=== PATIENT | female | born 1980 | race Caucasian/White ===

== ENCOUNTER 2016-10-09 17:42 | Emergency (ER) | payer OTHER ==
[~2016-10-09] VITALS: Ht 157.5 cm; Wt 95.0 kg
[~2016-10-09 17:42] MED LIST: HYDR-5688 PO; RANI150T2 PO
[2016-10-09 17:44] VITALS: TEMP 36.5; Ht 157.5 cm; Wt 95.0 kg
[2016-10-09] MEDS ORDERED: ACET325T96 PO (18:12)
[2016-10-09] MEDS ORDERED: HYDROCODONE/ACETAMOPHEN 5/325MG TAB PO STA (18:41)
[2016-10-09] MEDS ORDERED: IBUPROFEN 600 MG TAB PO STA (18:41)
--- NOTE | 2016-10-09 19:25 | DIAGNOSTIC IMAGING REPORT ---
RIGHT KNEE 2 VIEWS HISTORY: right, eval pain Right COMPARISON: None. FINDINGS: There is no fracture or dislocation. Soft tissues are unremarkable. No radiopaque foreign bodies. No knee effusion. IMPRESSION: No fractures. Electronically signed by: Yossi Jasso M.D. 10/09/2016 7:24 PM Dictated Date/Time: 10/09/2016 7:23 PM
[2016-10-09] MEDS ORDERED: NORCO 5/325MG HOME PACK PO ONE (19:45)
--- NOTE | 2016-10-09 19:46 | EMERGENCY ROOM VISIT NOTE ---
ED Visit Note First contact with patient: 18:02 CHIEF COMPLAINT: Right knee pain times one week HISTORY OF PRESENT ILLNESS: Patient is a 35-year-old white female who presents to emergency department for evaluation of right knee pain. She states that it has been bothering her for about a week. She had a injury about a month ago when she slipped getting out of the shower. She was seen and evaluated here and had x-rays which were negative. She was placed in a knee immobilizer and given crutches and she states that that pain resolved on its own and she was feeling fine until last week. She states that she did get a new job and she does do a lot more walking. The right knee began hurting eat about a week ago. She describes pain and swelling both medially and posteriorly. She has pain with weightbearing. She has tried to ice, elevate and has taken Tylenol for her pain which she presently rates an 8/10. She cannot find her crutches or her knee immobilizer to use. She did not try to see or throat or her PCP in the last week for evaluation of her pain. REVIEW OF SYSTEMS: Review of systems as per HPI. All other systems reviewed were negative. At least 6 systems reviewed. PMH: Electronic medical records are reviewed and summarized as above/below. See Problem List. SOCIAL HISTORY: Patient lives at home with her significant other and children. PHYSICAL EXAM: Vital Signs: Reviewed Nurse's notes. MENTAL STATUS: Overweight 35 -year-old white female who is awake and alert and seated in a wheelchair in moderate distress due to her knee pain. KNEE: Examination of the right knee does not show any significant extra-articular soft tissue swelling or joint effusion. Skin is intact without erythema or cellulitic changes. She is tenderness around the peripatellar region along the medial joint line. Range of motion is markedly limited due to discomfort. She can extend fully, can only flex to roughly 90. There is no ligamentous instability appreciated although exam is difficult. The calf is soft and nontender. Distal pulses are easily palpable. EMERGENCY DEPARTMENT COURSE: Patient was medicated with ibuprofen 600 mg and Jackson 5 mg 2 tablets orally. X-rays of the right knee were obtained and were unremarkable. Possibilities include a cartilage or ligamentous injury, meniscal tear, chondromalacia, among others. The patient may have sustained an injury to the knee that was undetected back in August which may have been reaggravated recently, possibly related to her increased physical activity. She was unable to find her crutches and knee immobilizer and therefore was issued a new set here in the emergency department. She was directed to follow- up with orthopedics. The patient was much more comfortable by discharge and rated her pain a 3/10. RIGHT KNEE 2 VIEWS HISTORY: right, eval pain Right COMPARISON: None. FINDINGS: There is no fracture or dislocation. Soft tissues are unremarkable. No radiopaque foreign bodies. No knee effusion. IMPRESSION: No fractures. Problem List Medical Problems: (1) Altered mental status Status: Resolved (2) Ankle sprain Status: Resolved (3) Cellulitis Status: Resolved (4) Dizziness Status: Resolved (5) Encounter for wound re-check Status: Resolved (6) Endometriosis Status: Resolved (7) Headache Status: Resolved (8) Headache Status: Resolved (9) Hx of ectopic Status: Resolved (10) Infected insect bite of abdominal wall Status: Resolved (11) Intractable headache Status: Resolved (12) Lyme disease Status: Resolved (13) Nausea Status: Resolved (14) Pain, dental Status: Resolved (15) Paresthesia of left leg Status: Resolved (16) Right knee pain Status: Resolved (17) Sepsis Status: Resolved (18) Severe headache Status: Resolved (19) Tachycardia Status: Resolved (20) Unresponsive episode Status: Resolved (21) UTI (urinary tract infection) Status: Resolved (22) Vaginal bleeding in patient at less than 20 weeks gestation Status: Resolved (23) Vertigo Status: Resolved (24) Weakness Status: Resolved Surgical Problems: (1) Chiari malformation Status: Resolved Current/Historical Medications Scheduled Ranitidine HCl (Ranitidine HCl), 150 MG PO BID Scheduled PRN Acetaminophen Tab (Tylenol), 325 MG PO Q6H PRN for Pain Allergies Coded Allergies: Albuterol (Verified Allergy, Unknown, 10/09/16) Fish Allergy (Verified Allergy, Unknown, SEAFOOD ALLERGY, 10/09/16) Vital Signs Date Time Temp Pulse Resp B/P Pulse Ox O2 Delivery O2 Flow Rate FiO2 10/09/16 20:05 77 16 113/74 100 10/09/16 17:44 36.5 93 18 129/77 Room Air Medications Administered Medications (Trade) Dose Ordered Sig/Lelia Route Start Time Stop Time Status Last Admin Dose Admin Acetaminophen/ Hydrocodone Bitart (Jackson 5/325 Tab) 2 tab NOW STAT PO 10/09/16 18:41 10/09/16 18:42 DC 10/09/16 18:56 2 TAB Ibuprofen (Motrin Tab) 600 mg NOW STAT PO 10/09/16 18:41 10/09/16 18:42 DC 10/09/16 18:55 600 MG Acetaminophen/ Hydrocodone Bitart (Jackson 5/325mg Home Pack) 1 homepack UD ONCE PO 10/09/16 19:45 10/09/16 19:46 DC 10/09/16 20:04 1 HOMEPACK Departure Information Impression Primary Impression: Knee pain Referrals Guillermo Fink M.D. (PCP) Patient Instructions My [facility] Additional Instructions DO NOT drive, drink alcohol, operate machinery, or perform dangerous activities today. You were given medications in the ER that can affect your ability to safely function or operate a vehicle. Hydrocodone/Acetaminophen (Jackson) 5/325 mg: Take 1-2 pills every four hours for breakthrough pain. Avoid alcohol, operating machinery or dangerous equipment, working on ladders or roofs, DRIVING, or situations where being under the influence may be dangerous. It is recommended to use an [id number] stool softener such as Colace, 100mg twice daily while taking this medication to avoid constipation. Ibuprofen(Motrin, Advil) may be used for fever or pain. Use 600mg every six hours as needed. Take with food. Avoid using more than 2400mg in a 24 hour period. Do not use 2400mg per day for more than three consecutive days without physician direction. Prolonged inappropriate use can lead to stomach upset or ulcers. This medication can be taken if you need to drive, work, or perform activities which may be dangerous when taking narcotic pain medication. (AND/OR) Acetaminophen(Tylenol) may be used for fever or pain. Use 1000mg every six hours as needed. Avoid using more than 3000mg in a 24 hour period. This medication can be taken if you need to drive, work, or perform activities which may be dangerous when taking narcotic pain medication. Ice compresses for 20 minutes at a time four times daily for 2-3 days. Use the crutches and knee immobilizer as instructed. Rest and elevate your injury. Continue current medications. Return to the ER immediately for any numbness, tingling, severe pain, extreme swelling in the extremity or as needed. Follow up with orthopedics next week to arrange follow up for your injury. Problem Qualifiers Primary Impression: Knee pain Laterality: right Chronicity: acute Qualified Codes: M25.561 - Pain in right knee
[2016-10-09 20:05] VITALS: BP 113/74; PULSE 77; O2SAT 100
[2017-06-03] MEDS ORDERED: ANT25 PO (15:35)
[2017-06-03] MEDS ORDERED: ONDA4TAB10 SL (15:35)
== END 2016-10-09 20:06 | disposition home or self-care (01) ==
LOC: C.EDB 17:43 → C.EDD 20:06
DX: M25.561 Pain in right knee (principal)

== ENCOUNTER 2016-11-30 18:36 | Emergency (ER) | payer OTHER ==
[~2016-11-30] VITALS: Ht 157.5 cm; Wt 90.0 kg
[~2016-11-30 18:36] MED LIST changes: +ACET325T96 PO; -HYDR-5688 PO
[2016-11-30 19:01] VITALS: Ht 157.5 cm; Wt 90.0 kg
[2016-11-30] MEDS ORDERED: ACETAMINOPHEN 500 MG TAB PO STA (20:21)
[2016-11-30] MEDS ORDERED: SODIUM CHLORIDE 0.9% 1000ML 1,000 ML IV STA (20:21)
[2016-11-30] MEDS ORDERED: ONDANSETRON 8 MG/54 ML D5W IV STA (20:21)
[2016-11-30 20:26] LABS: COMPLETE YES; EOS % 0.6 %; HEMATOCRIT 39.1 % (37-47); LYMPH % 12.7 %; LYMPH ABS # 0.43 K/uL (1.2-3.4); MEAN CELL VOLUME 85.2 fL (80-100); MEAN CORPUSCULAR HEMOGLOBIN 28.3 pg (25-34); MEAN CORPUSCULAR HGB CONC 33.2 g/dl (32-36); MONO % 5.6 %; NEUT % 81.1 %; PLATELET COUNT 177 K/uL (130-400); RED BLOOD COUNT 4.59 M/uL (4.2-5.4); WHITE BLOOD COUNT 3.38 K/uL (4.8-10.8)
[2016-11-30 20:59] LABS: ALB/GLOB RATIO 1.1 (0.9-2); ALKALINE PHOSPHATASE 92 U/L (45-117); ALT/SGPT 16 U/L (12-78); AST/SGOT 10 U/L (15-37); BLOOD UREA NITROGEN 8 mg/dl (7-18); BUN/CREATININE RATIO 7.3 (10-20); CALCIUM 8.2 mg/dl (8.5-10.1); CARBON DIOXIDE 25 mmol/L (21-32); CHLORIDE 105 mmol/L (98-107); GLUCOSE 98 mg/dl (70-99); POTASSIUM 3.2 mmol/L (3.5-5.1); SODIUM 140 mmol/L (136-145)
[2016-11-30 21:00] LABS: THYROID STIMULATING HORMONE 0.903 uIu/ml (0.300-4.500)
[2016-11-30] MEDS: MoRPHine SULFATE 4 MG/ML 1 ML CARP\\VIAL IV PRN ×3 (21:22→23:06)
[2016-11-30 22:01] LABS: PREG INTERNAL NEGATIVE QC NEG CLEAR BACKGROUND; PREG INTERNAL POSITIVE QC POS CONTROL LINE
[2016-11-30 22:05] LABS: URINE APPEARANCE CLEAR (CLEAR); URINE BILIRUBIN NEG (NEG); URINE COLOR YELLOW; URINE NITRITE NEG (NEG); URINE PH 5.5 (4.5-7.5); URINE SPECIFIC GRAVITY 1.019 (1.000-1.030); UROBILINOGEN NEG (NEG)
[2016-11-30 22:11] LABS: MANUAL MICROSCOPIC REQUIRED? NO; REVIEW REQ? NO
--- NOTE | 2016-11-30 22:49 | DIAGNOSTIC IMAGING REPORT ---
CHEST ONE VIEW PORTABLE CLINICAL HISTORY: syncope COMPARISON STUDY: 07/24/2016 FINDINGS: The cardiac and mediastinal contours are normal. There is no evidence of focal pulmonary consolidation. There is no evidence of failure. No pleural effusions are visualized.[ There is a mild spinal curvature. IMPRESSION: No active disease in the chest. Electronically signed by: Andre Weeks M.D. 11/30/2016 10:48 PM Dictated Date/Time: 11/30/2016 10:47 PM
--- NOTE | 2016-11-30 22:50 | DIAGNOSTIC IMAGING REPORT ---
RIGHT WRIST W/NAVICULAR MIN 3 VIEWS CLINICAL HISTORY: Right wrist pain status post trauma COMPARISON: None. DISCUSSION: 5 views reveal no fractures or dislocations. IMPRESSION: No fractures or dislocations identified. Electronically signed by: Andre Weeks M.D. 11/30/2016 10:49 PM Dictated Date/Time: 11/30/2016 10:48 PM
--- NOTE | 2016-11-30 22:52 | DIAGNOSTIC IMAGING REPORT ---
L-SPINE MIN 4 VIEWS ROUTINE CLINICAL HISTORY: Low back pain status post trauma COMPARISON STUDY: No previous studies for comparison. FINDINGS: There are 5 lumbar type vertebral bodies present. No fractures or subluxations are visualized. There is an L4 limbus vertebra. There are mild multilevel degenerative changes. IMPRESSION: No acute fractures or subluxations identified. Electronically signed by: Andre Weeks M.D. 11/30/2016 10:50 PM Dictated Date/Time: 11/30/2016 10:49 PM
[2016-11-30 22:55] VITALS: BP 124/74; PULSE 112; TEMP 37.8; O2SAT 98
--- NOTE | 2016-11-30 22:58 | EMERGENCY ROOM VISIT NOTE ---
History Report prepared by Manasaibshane: Erika Orosco Under the Supervision of: Dr. Karan Benjamin D.O. First contact with patient: 20:16 Chief Complaint: FALL Stated Complaint: DIZZINESS, FALL W/POSS DC, RT ARM PAIN History of Present Illness The patient is a 36 year old female who presents to the Emergency Room with complaints of an episode of resolved syncope that occurred earlier today. She reports she fell while she was at work today. She states she has no idea what happened, she just remembers walking and then being on the ground. She admits to feeling dizzy intermittently for the entire day. The patient complains of pain in her right hand, arm and wrist that radiates up into her neck. She has undergone previous neck surgery for a history of Chiari malformation. The patient states she is unsure if she hit her head or lost consciousness. She denies any recent chest pain, shortness of breath, abdominal pain, nausea, vomiting, diarrhea or urinary symptoms. She has a fever here in the ED but states she was unaware she was febrile before this evening. Source of History: patient Onset: COTTON TIER Position: other (global) Timing: resolved Associated Symptoms: No SOB, No abdominal pain, No chest pain, No diarrhea, No nausea, No urinary symptoms, No vomiting Review of Systems See HPI for pertinent positives & negatives. A total of 10 systems reviewed and were otherwise negative. Past Medical & Surgical Medical Problems: (1) Altered mental status (2) Ankle sprain (3) Cellulitis (4) Dizziness (5) Encounter for wound re-check (6) Endometriosis (7) Headache (8) Headache (9) Hx of ectopic (10) Infected insect bite of abdominal wall (11) Intractable headache (12) Lyme disease (13) Nausea (14) Pain, dental (15) Paresthesia of left leg (16) Right knee pain (17) Sepsis (18) Severe headache (19) Tachycardia (20) Unresponsive episode (21) UTI (urinary tract infection) (22) Vaginal bleeding in patient at less than 20 weeks gestation (23) Vertigo (24) Weakness Surgical Problems: (1) Chiari malformation Family History FH: mental illness Heart disease Social History Smoking Status: Never Smoker Alcohol Use: none Drug Use: none Marital Status: , other Housing Status: lives with family Occupation Status: employed Current/Historical Medications Scheduled PRN Acetaminophen Tab (Tylenol), 325 MG PO Q6H PRN for Pain Allergies Coded Allergies: Albuterol (Verified Allergy, Unknown, 10/09/16) Fish Allergy (Verified Allergy, Unknown, SEAFOOD ALLERGY, 10/09/16) Physical Exam Vital Signs Date Time Temp Pulse Resp B/P Pulse Ox O2 Delivery O2 Flow Rate FiO2 11/30/16 22:55 37.8 112 20 124/74 98 11/30/16 20:51 109 118/72 98 Room Air 115 129/89 120 136/112 11/30/16 20:12 37.2 114 20 133/84 95 Room Air 11/30/16 19:01 38.2 120 18 122/81 97 Room Air Physical Exam CONSTITUTIONAL/VITAL SIGNS: Reviewed / noted above. GENERAL: Non-toxic in appearance. INTEGUMENTARY: Warm, dry, and [place]. HEAD: Normocephalic. EYES: without scleral icterus or trauma. ENT/OROPHARYNX: clear and moist. LYMPHADENOPATHY/NECK: Is supple without lymphadenopathy or meningismus. Post surgical scar in cervical region, no midline tenderness. RESPIRATORY: Lungs clear and equal. CARDIOVASCULAR: Regular rate and rhythm. GI/ABDOMEN: Soft and nontender. No organomegaly or pulsatile mass. No rebound or guarding. Normal bowel sounds. EXTREMITIES: Warm and well perfused. She has discomfort with axial loading of right thumb and snuff box tenderness. Discomfort over right clavicle. BACK: No CVA tenderness. There is some tenderness to palpation of lumbar region on the right, no midline tenderness. NEUROLOGICAL: Intact without focal deficits. PSYCHIATRIC: normal affect. MUSCULOSKELETAL: Normally developed with good muscle tone. Medical Decision & Procedures ER Provider Diagnostic Interpretation: These X-Rays were reviewed and interpreted by myself and the radiologist. L-SPINE MIN 4 VIEWS ROUTINE IMPRESSION: No acute fractures or subluxations identified. Electronically signed by: Andre Weeks M.D. 11/30/2016 10:50 PM RIGHT WRIST W/NAVICULAR MIN 3 VIEWS DISCUSSION: 5 views reveal no fractures or dislocations. IMPRESSION: No fractures or dislocations identified. Electronically signed by: Andre Weeks M.D. 11/30/2016 10:49 PM CHEST ONE VIEW PORTABLE IMPRESSION: No active disease in the chest. Electronically signed by: Andre Weeks M.D. 11/30/2016 10:48 PM Laboratory Results 11/30/16 20:10 Red Blood Count 4.59, Mean Corpuscular Volume 85.2, Mean Corpuscular Hemoglobin 28.3, Mean Corpuscular Hemoglobin Concent 33.2, Mean Platelet Volume 11.0, Neutrophils (%) (Auto) 81.1, Lymphocytes (%) (Auto) 12.7, Monocytes (%) (Auto) 5.6, Eosinophils (%) (Auto) 0.6, Basophils (%) (Auto) 0.0, Neutrophils # (Auto) 2.74, Lymphocytes # (Auto) 0.43, Monocytes # (Auto) 0.19, Eosinophils # (Auto) 0.02, Basophils # (Auto) 0.00 11/30/16 20:10 Test 11/30/16 20:10 11/30/16 20:28 11/30/16 20:50 11/30/16 21:45 White Blood Count 3.38 K/uL (4.8-10.8) Red Blood Count 4.59 M/uL (4.2-5.4) Hemoglobin 13.0 g/dL (12.0-16.0) Hematocrit 39.1 % (37-47) Mean Corpuscular Volume 85.2 fL (80-100) Mean Corpuscular Hemoglobin 28.3 pg (25-34) Mean Corpuscular Hemoglobin Concent 33.2 g/dl (32-36) Platelet Count 177 K/uL (130-400) Mean Platelet Volume 11.0 fL (7.4-10.4) Neutrophils (%) (Auto) 81.1 % Lymphocytes (%) (Auto) 12.7 % Monocytes (%) (Auto) 5.6 % Eosinophils (%) (Auto) 0.6 % Basophils (%) (Auto) 0.0 % Neutrophils # (Auto) 2.74 K/uL (1.4-6.5) Lymphocytes # (Auto) 0.43 K/uL (1.2-3.4) Monocytes # (Auto) 0.19 K/uL (0.11-0.59) Eosinophils # (Auto) 0.02 K/uL (0-0.5) Basophils # (Auto) 0.00 K/uL (0-0.2) RDW Standard Deviation 42.4 fL (36.4-46.3) RDW Coefficient of Variation 13.5 % (11.5-14.5) Immature Granulocyte % (Auto) 0.0 % Immature Granulocyte # (Auto) 0.00 K/uL (0.00-0.02) Anion Gap 10.0 mmol/L (3-11) Est Creatinine Clear Calc Drug Dose 74.5 ml/min Estimated GFR () 75.3 Estimated GFR (Non- 65.0 BUN/Creatinine Ratio 7.3 (10-20) Calcium Level 8.2 mg/dl (8.5-10.1) Total Bilirubin 0.6 mg/dl (0.2-1) Aspartate Amino Transf (AST/SGOT) 10 U/L (15-37) Alanine Aminotransferase (ALT/SGPT) 16 U/L (12-78) Alkaline Phosphatase 92 U/L (45-117) Total Creatine Kinase 65 U/L (26-192) Creatine Kinase MB < 0.5 ng/ml (0.5-3.6) Creatine Kinase MB Ratio (0-3.0) Troponin I < 0.015 ng/ml (0-0.045) Total Protein 7.2 gm/dl (6.4-8.2) Albumin 3.7 gm/dl (3.4-5.0) Globulin 3.5 gm/dl (2.5-4.0) Albumin/Globulin Ratio 1.1 (0.9-2) Lipase 120 U/L (73-393) Thyroid Stimulating Hormone (TSH) 0.903 uIu/ml (0.300-4.500) Bedside Troponin I 0.000 ng/ml (0-0.045) Influenza Type A Antigen Neg for Influ A (NEG) Influenza Type B Antigen Neg for Influ B (NEG) Urine Color YELLOW Urine Appearance CLEAR (CLEAR) Urine pH 5.5 (4.5-7.5) Urine Specific Muir 1.019 (1.000-1.030) Urine Protein NEG (NEG) Urine Glucose (UA) NEG (NEG) Urine Ketones NEG (NEG) Urine Occult Blood NEG (NEG) Urine Nitrite NEG (NEG) Urine Bilirubin NEG (NEG) Urine Urobilinogen NEG (NEG) Urine Leukocyte Esterase NEG (NEG) Urine Test NEG (NEG) Laboratory results as stated above per my review. Medications Administered Medications (Trade) Dose Ordered Sig/Lelia Route Start Time Stop Time Status Last Admin Dose Admin Sodium Chloride (Nss 1000ml) 1,000 ml @ 999 mls/hr Q1H1M STAT IV 11/30/16 20:21 11/30/16 21:21 DC 11/30/16 21:17 999 MLS/HR Acetaminophen (Tylenol Tab) 1,000 mg NOW STAT PO 11/30/16 20:21 11/30/16 20:26 DC 11/30/16 21:18 1,000 MG Morphine Sulfate (MoRPHine SULFATE INJ) 4 mg Q1H PRN IV 11/30/16 20:30 4 20:29 11/30/16 22:12 4 MG Ondansetron HCl (Zofran 8mg Iv) 8 mg NOW STAT IV 11/30/16 20:21 11/30/16 20:26 DC 11/30/16 21:17 8 MG ECG Indication: syncope Rate (beats per minute): 102 Rhythm: sinus tachycardia Findings: no acute ischemic change, no ectopy ED Course 2017: Previous medical records were reviewed. The patient was evaluated in room C2. A complete history and physical examination was performed. 2020: Zofran 8 mg IV, Acetaminophen 1000 mg PO, NSS 1000 ml @ 999 mls/hr IV. 2030: Morphine Sulfate 4 mg IV. 2300: I reevaluated the patient. She is feeling better. I discussed her results and discharge instructions and she verbalized complete understanding and agreement. Medical Decision Differential includes acute cardiac dysrhythmia, microinfarction, CVA, TIA, dehydration, anemia, electrolyte disturbance, seizure, trauma, intracranial bleeding, acute vascular catastrophe, thoracic aortic dissection, PE, abdominal aortic aneurysm rupture, ectopic rupture, acute cardiac dysrhythmia, dehydration, seizure. This is a 36-year-old female who presents to the ED with a chief complaint of a fall/syncope. The patient states that she has been feeling dizzy all day. She feels of the ground while at work. She complains of some low back pain as well as right shoulder pain and right wrist pain. She denies nausea vomiting or other symptoms. She denies having a fever although her temperature here was initially 38.2. This resolved while she is here. She was tachycardic with a heart rate of 120. Orthostatic vital signs revealed an increase in her heart rate by 11 beats per minute. An EKG shows sinus tachycardia rate of 107. CBC was normal. Complete metabolic panel was unremarkable with exception of a potassium of 3.2. Troponin is negative. TSH is normal. Urine did not show infection. test was negative. Flu swab was negative. Chest x-ray did not show acute disease. X-rays of the lumbar spine and the right wrist with navicular were negative for fracture. The patient was treated with IV fluids, by mouth Tylenol, IV morphine and IV Zofran. Her symptoms may be related to a viral syndrome. She may have been slightly dehydrated as well. She is felt to be stable for discharge and outpatient follow-up. Impression Primary Impression: Fall Additional Impressions: Dizziness Contusion of multiple sites Scribe Attestation The scribe's documentation has been prepared under my direction and personally reviewed by me in its entirety. I confirm that the note above accurately reflects all work, treatment, procedures, and medical decision making performed by me. Departure Information Dispostion Home / Self-Care Referrals Guillermo Fink M.D. (PCP) Patient Instructions My [facility] Additional Instructions Follow-up with your doctor for further care and evaluation in 1-2 days. Return to the emergency department for worsening or new symptoms or any concerns. You have been examined and treated today on an emergency basis only. This is not a substitute for, or an effort to provide, complete comprehensive medical care. It is impossible to recognize and treat all injuries or illnesses in a single emergency department visit. It is therefore important that you follow up closely with your doctor. Call as soon as possible for an appointment. Drink plenty of fluids. Take Tylenol or Motrin as needed for fever or discomfort. Problem Qualifiers
[2017-06-03] MEDS ORDERED: ONDA4TAB10 SL (15:35)
[2017-06-03] MEDS ORDERED: ANT25 PO (15:35)
== END 2016-11-30 23:22 | disposition home or self-care (01) ==
LOC: C.EDB 18:39 → C.EDC 23:22
DX: R42 Dizziness and giddiness (principal); T14.8 Other injury of unspecified body region; W19.XXXA Unspecified fall, initial encounter; Y92.89 Other specified places as the place of occurrence of the external cause; Y99.0 Civilian activity done for income or pay; R00.0 Tachycardia, unspecified; N80.9 Endometriosis, unspecified; Z87.898 Personal history of other specified conditions; Z87.440 Personal history of urinary (tract) infections; Z86.19 Personal history of other infectious and parasitic diseases; Z87.828 Personal history of other (healed) physical injury and trauma; Z88.8 Allergy status to other drugs, medicaments and biological substances; Z91.018 Allergy to other foods; Z82.49 Family history of ischemic heart disease and other diseases of the circulatory system; Z81.8 Family history of other mental and behavioral disorders

== ENCOUNTER 2016-12-14 21:45 | Emergency (ER) | payer OTHER ==
[~2016-12-14] VITALS: Ht 157.5 cm; Wt 91.0 kg
[~2016-12-14 21:45] MED LIST changes: -RANI150T2 PO
[2016-12-14 22:02] VITALS: Ht 157.5 cm; Wt 91.0 kg
[2016-12-14 22:36] VITALS: TEMP 36.7; O2SAT 96
[2016-12-14] MEDS ORDERED: SODIUM CHLORIDE 0.9% 1000ML 1,000 ML IV ONE (22:45)
[2016-12-14 22:52] LABS: BASO % 0.2 %; BASO ABS # 0.02 K/uL (0-0.2); COMPLETE YES; EOS % 1.1 %; HEMATOCRIT 37.4 % (37-47); IG% 0.2 %; LYMPH % 19.8 %; LYMPH ABS # 1.61 K/uL (1.2-3.4); MEAN CORPUSCULAR HGB CONC 32.9 g/dl (32-36); MEAN PLATELET VOLUME 10.9 fL (7.4-10.4); MONO % 5.2 %; NEUT % 73.5 %; PLATELET COUNT 235 K/uL (130-400); WHITE BLOOD COUNT 8.12 K/uL (4.8-10.8)
--- NOTE | 2016-12-14 23:01 | DIAGNOSTIC IMAGING REPORT ---
CHEST ONE VIEW PORTABLE CLINICAL HISTORY: Syncope. COMPARISON STUDY: Chest radiograph November 30, 2016. FINDINGS: This exam is compromised by motion artifact. Lung volumes are mildly diminished. There is no pneumothorax or pleural effusion. There is no lobar consolidation or evidence of pulmonary edema. IMPRESSION: No acute findings. No significant change in appearance of the chest. Electronically signed by: Michelet Cifuentes M.D. 12/14/2016 11:00 PM Dictated Date/Time: 12/14/2016 10:58 PM
[2016-12-14 23:09] LABS: ALT/SGPT 20 U/L (12-78); BLOOD UREA NITROGEN 14 mg/dl (7-18); BUN/CREATININE RATIO 11.4 (10-20); CALCIUM 8.5 mg/dl (8.5-10.1); CARBON DIOXIDE 26 mmol/L (21-32); CHLORIDE 108 mmol/L (98-107); GLUCOSE 96 mg/dl (70-99); MAGNESIUM 2.2 mg/dl (1.8-2.4); POTASSIUM 3.6 mmol/L (3.5-5.1); SODIUM 142 mmol/L (136-145)
[2016-12-14 23:20] LABS: ALB/GLOB RATIO 1.2 (0.9-2); ALKALINE PHOSPHATASE 89 U/L (45-117); AST/SGOT 8 U/L (15-37)
--- NOTE | 2016-12-14 23:25 | DIAGNOSTIC IMAGING REPORT ---
CT OF THE HEAD WITHOUT CONTRAST CLINICAL HISTORY: Syncope. Head injury. COMPARISON STUDY: MRI of the brain February 10, [address] August 13, 2016. CT DOSE: 537.48 mGy.cm TECHNIQUE: Helical axial images of the head were obtained without IV contrast. Automated exposure control was utilized for the study. FINDINGS: No acute intracranial hemorrhage, midline shift or mass effect is present. Ventricular system is normal. Fullness at the level the foramen magnum is unchanged. There are stable postsurgical findings following suboccipital craniectomy. No extra axial collection is present. Conley-white differentiation is maintained. The appearance of the brain is unchanged. There is no calvarial fracture. IMPRESSION: 1. No acute intracranial findings. 2. Stable post surgical findings following suboccipital craniectomy. 3. No calvarial fracture. Electronically signed by: Michelet Cifuentes M.D. 12/14/2016 11:24 PM Dictated Date/Time: 12/14/2016 11:21 PM
[2016-12-15 00:12] VITALS: BP 134/86; PULSE 96; O2SAT 96
--- NOTE | 2016-12-15 04:50 | EMERGENCY ROOM VISIT NOTE ---
History First contact with patient: 22:13 Chief Complaint: SYNCOPE Stated Complaint: SYNCOPE Nursing Triage Summary: pt states, "I fell in the bathroom." RN asked patient if she tripped or felt dizzy. patient states, "I don't know." pt c/o dizziness and headache. History of Present Illness The patient is a 36 year old female who presents to the Emergency Room with complaints of fall versus syncopal episode that occurred at home one to 2 hours ago. The patient states that she went into her bathroom, and the next thing she remembers is she woke up on the floor. The patient has had some dizziness recently, and now has a headache that was not previously present. The patient does not have neck pain, chest pain, chest tightness, shortness of breath, or palpitations. No extremity injury. The patient does not report recent illness or significant changes in medication. She believes that she has been eating and drinking well. She rates her current discomfort a 5/10. Review of Systems More than 10 systems were reviewed and otherwise negative with the exception of history of present illness. Past Medical/Surgical History Medical Problems: (1) Altered mental status (2) Ankle sprain (3) Cellulitis (4) Dizziness (5) Encounter for wound re-check (6) Endometriosis (7) Headache (8) Headache (9) Hx of ectopic (10) Infected insect bite of abdominal wall (11) Intractable headache (12) Lyme disease (13) Nausea (14) Pain, dental (15) Paresthesia of left leg (16) Right knee pain (17) Sepsis (18) Severe headache (19) Tachycardia (20) Unresponsive episode (21) UTI (urinary tract infection) (22) Vaginal bleeding in patient at less than 20 weeks gestation (23) Vertigo (24) Weakness Surgical Problems: (1) Chiari malformation Family History FH: mental illness Heart disease Social History Smoking Status: Never Smoker Alcohol Use: none Drug Use: none Marital Status: , other Housing Status: lives with family Occupation Status: employed Current/Historical Medications No Active Prescriptions or Reported Meds Allergies Coded Allergies: Albuterol (Verified Allergy, Unknown, 12/14/16) Fish Allergy (Verified Allergy, Unknown, SEAFOOD ALLERGY, 12/14/16) Physical Exam Vital Signs Date Time Temp Pulse Resp B/P Pulse Ox O2 Delivery O2 Flow Rate FiO2 12/15/16 00:12 96 18 134/86 96 12/14/16 22:36 36.7 92 16 109/72 96 Room Air 12/14/16 22:36 96 Room Air 12/14/16 22:30 92 16 12/14/16 22:28 96 12/14/16 22:28 105 14 109/72 96 Room Air 12/14/16 22:26 99 Room Air 12/14/16 22:25 98 10 12/14/16 22:19 109/72 96 Room Air 12/14/16 22:02 36.7 95 20 118/74 97 Room Air Pain Rating (0-10): 0 Physical Exam VITALS: Vitals are noted on the nurse's note and reviewed by myself. Vital signs stable. GENERAL: Well-developed, well-nourished, white female, who is in no acute distress and resting comfortably. Patient is cooperative with the examination. HEAD: Normocephalic atraumatic. EARS: External ear normal. External auditory canals clear, tympanic membranes pearly conley without erythema or effusion bilaterally. EYES: Pupils equal round and reactive to light and accommodation. Conjunctivae without injection, sclerae without icterus. Extraocular movements intact. NOSE: Patent, turbinates without inflammation or discharge. MOUTH: Mucous membranes moist. Tonsils are not enlarged. Pharynx without erythema, blood, or exudate. Uvula midline. Airway patent. NECK: Supple without nuchal rigidity. No lymphadenopathy. No thyromegaly. Cervical spine is nontender. HEART: Regular rate and rhythm without murmurs gallops or rubs. LUNGS: Clear to auscultation bilaterally without wheezes, rales or rhonchi. No retractions or accessory muscle use. ABDOMEN: Positive normal bowel sounds x 4. Soft, nontender, without masses or organomegaly. No guarding or rebound tenderness. MUSCULOSKELETAL: No muscle atrophy, erythema, or edema noted. Full range of motion without joint tenderness in all extremities. No tenderness to palpation. Normal gait. Strength 5/5 throughout. NEURO: Patient was alert and oriented to person place and time. CN II through XII grossly intact. Deep tendon reflexes 2+ throughout. No focal neurological deficits SKIN: The skin was without rashes, erythema, edema, or bruising. Capillary reflex less than 2 seconds. Medical Decision & Procedures ER Provider Diagnostic Interpretation: CT OF THE HEAD WITHOUT CONTRAST CLINICAL HISTORY: Syncope. Head injury. COMPARISON STUDY: MRI of the brain February 10, [address] August 13, 2016. CT DOSE: 537.48 mGy.cm TECHNIQUE: Helical axial images of the head were obtained without IV contrast. Automated exposure control was utilized for the study. FINDINGS: No acute intracranial hemorrhage, midline shift or mass effect is present. Ventricular system is normal. Fullness at the level the foramen magnum is unchanged. There are stable postsurgical findings following suboccipital craniectomy. No extra axial collection is present. Conley-white differentiation is maintained. The appearance of the brain is unchanged. There is no calvarial fracture. IMPRESSION: 1. No acute intracranial findings. 2. Stable post surgical findings following suboccipital craniectomy. 3. No calvarial fracture. CHEST ONE VIEW PORTABLE CLINICAL HISTORY: Syncope. COMPARISON STUDY: Chest radiograph November 30, 2016. FINDINGS: This exam is compromised by motion artifact. Lung volumes are mildly diminished. There is no pneumothorax or pleural effusion. There is no lobar consolidation or evidence of pulmonary edema. IMPRESSION: No acute findings. No significant change in appearance of the chest. Laboratory Results 12/14/16 22:35 Red Blood Count 4.40, Mean Corpuscular Volume 85.0, Mean Corpuscular Hemoglobin 28.0, Mean Corpuscular Hemoglobin Concent 32.9, Mean Platelet Volume 10.9, Neutrophils (%) (Auto) 73.5, Lymphocytes (%) (Auto) 19.8, Monocytes (%) (Auto) 5.2, Eosinophils (%) (Auto) 1.1, Basophils (%) (Auto) 0.2, Neutrophils # (Auto) 5.96, Lymphocytes # (Auto) 1.61, Monocytes # (Auto) 0.42, Eosinophils # (Auto) 0.09, Basophils # (Auto) 0.02 12/14/16 22:35 Test 12/14/16 22:35 White Blood Count 8.12 K/uL (4.8-10.8) Red Blood Count 4.40 M/uL (4.2-5.4) Hemoglobin 12.3 g/dL (12.0-16.0) Hematocrit 37.4 % (37-47) Mean Corpuscular Volume 85.0 fL (80-100) Mean Corpuscular Hemoglobin 28.0 pg (25-34) Mean Corpuscular Hemoglobin Concent 32.9 g/dl (32-36) Platelet Count 235 K/uL (130-400) Mean Platelet Volume 10.9 fL (7.4-10.4) Neutrophils (%) (Auto) 73.5 % Lymphocytes (%) (Auto) 19.8 % Monocytes (%) (Auto) 5.2 % Eosinophils (%) (Auto) 1.1 % Basophils (%) (Auto) 0.2 % Neutrophils # (Auto) 5.96 K/uL (1.4-6.5) Lymphocytes # (Auto) 1.61 K/uL (1.2-3.4) Monocytes # (Auto) 0.42 K/uL (0.11-0.59) Eosinophils # (Auto) 0.09 K/uL (0-0.5) Basophils # (Auto) 0.02 K/uL (0-0.2) RDW Standard Deviation 41.3 fL (36.4-46.3) RDW Coefficient of Variation 13.4 % (11.5-14.5) Immature Granulocyte % (Auto) 0.2 % Immature Granulocyte # (Auto) 0.02 K/uL (0.00-0.02) Anion Gap 8.0 mmol/L (3-11) Est Creatinine Clear Calc Drug Dose 68.7 ml/min Estimated GFR () 67.8 Estimated GFR (Non- 58.5 BUN/Creatinine Ratio 11.4 (10-20) Calcium Level 8.5 mg/dl (8.5-10.1) Magnesium Level 2.2 mg/dl (1.8-2.4) Total Bilirubin 0.5 mg/dl (0.2-1) Aspartate Amino Transf (AST/SGOT) 8 U/L (15-37) Alanine Aminotransferase (ALT/SGPT) 20 U/L (12-78) Alkaline Phosphatase 89 U/L (45-117) Troponin I < 0.015 ng/ml (0-0.045) Total Protein 6.8 gm/dl (6.4-8.2) Albumin 3.7 gm/dl (3.4-5.0) Globulin 3.1 gm/dl (2.5-4.0) Albumin/Globulin Ratio 1.2 (0.9-2) Thyroid Stimulating Hormone (TSH) 2.070 uIu/ml (0.300-4.500) Medications Administered Medications (Trade) Dose Ordered Sig/Lelia Route Start Time Stop Time Status Last Admin Dose Admin Sodium Chloride (Nss 1000ml) 1,000 ml @ 999 mls/hr Q1H1M ONCE IV 12/14/16 22:45 12/14/16 23:45 DC 12/14/16 22:40 999 MLS/HR ED Course Physical exam and history were performed. Nursing notes and EMR were reviewed. Patient appears to have had a fall versus syncopal episode today. EKG was performed and was normal sinus rhythm without acute ST elevation. IV access was established and labs were obtained. CT scan of the head was performed as well as chest x-ray of the chest. The patient was placed on a monitor tech. She was hydrated with normal saline. The patient blood work is as above and was reviewed. She does not have a significantly elevated white blood cell count, gross anemia, bandemia, or significant electrolyte imbalance. Troponin 1 is negative. Chest x-ray does not show acute process. CT scan is without acute intracranial bleed. The patient did not have significant findings on the monitor tech. Overall the patient appears stable for discharge home. She was able to ambulate here in the department without difficulty. She is without neurologic deficit. She does not appear to be experiencing an acute cardiopulmonary event. The patient symptoms certainly could have been a vagal episode that occurred in the bathroom. They could also be from a mechanical fall. She will need to have close follow-up by her primary care physician, and she contact them for a short interval follow-up. The patient is to use [id number] ibuprofen and Tylenol for pain control. She was otherwise invited back to the ER with any new, worsening, or concerning symptoms. The chart was completed utilizing [employer] Voice [employer]ognition Software. Grammatical errors, random word insertions, pronoun errors, and incomplete sentences are an occasional consequence of this system due to software limitations, ambient noise, and hardware issues. Any formal questions or concerns about the content, text, or information contained within the body of this dictation should be directly addressed to the provider for clarification. . Medical Decision Differential diagnosis: Etiologies such as vasovagal event, infection, hypoglycemia, electrolyte abnormalities, cardiac sources, intracerebral event, toxicologic, neurologic, as well as others were entertained. Impression Primary Impression: Syncope Departure Information Dispostion Home / Self-Care Condition GOOD Prescriptions No Active Prescriptions or Reported Meds Forms HOME CARE DOCUMENTATION FORM, Work Instructions, Additional Instructions: Patient seen and evaluated in the emergency department today for medica care. Return to work on 12/17/2016. IMPORTANT VISIT INFORMATION Patient Instructions My [facility] Additional Instructions You were seen and evaluated today on an emergency basis only. This is not a substitute for, or an effort to provide, complete comprehensive medical care. It is not possible to recognize and treat all injuries or illnesses in a single emergency department visit. For this reason it is recommended that you followup with your primary care physician in the next 1-2 days for recheck of your condition. Drink plenty of fluids and remain well hydrated. You are welcome to return to the emergency department anytime with new, worsening, or concerning symptoms. Work Instructions Additional Work Instructions: Patient seen and evaluated in the emergency department today for medical care. Return to work on 12/17/2016.
[2017-06-03] MEDS ORDERED: ONDA4TAB10 SL (15:35)
[2017-06-03] MEDS ORDERED: ANT25 PO (15:35)
== END 2016-12-15 00:13 | disposition home or self-care (01) ==
LOC: C.EDB 21:47 → C.EDA 12-15 00:13
DX: R55 Syncope and collapse (principal); Z82.49 Family history of ischemic heart disease and other diseases of the circulatory system

== ENCOUNTER → 2016-12-30 | Outpatient (CLI) | payer OTHER ==
[~2016-12-30] MED LIST changes: -ACET325T96 PO; +ANT25 PO; +GADAVIST IV PRN; +ONDA4TAB10 SL; +PLEXUS BIOCLEANSE PO; +PLEXUS PROBIO PO; +TRAM-10 PO; +ZNTT/150 PO
--- NOTE | 2016-12-30 16:41 | DIAGNOSTIC IMAGING REPORT ---
MRI OF THE BRAIN WITHOUT AND WITH IV CONTRAST CLINICAL HISTORY: SYNCOPE COMPARISON STUDY: No previous studies for comparison. TECHNIQUE: Utilizing a 1.5 Chiquita magnet and dedicated coil, multiplanar, multiecho imaging of the brain was performed pre and postcontrast administration. IV administration of 8 mL of Gadavist contrast was uneventful. FINDINGS: Low-lying cerebellar tonsils. Suboccipital decompression craniotomy. Diffusion-weighted images show no acute ischemic event. No evidence for abnormal postcontrast enhancement. Trace dural enhancement which has been present previously. Sella and parasellar regions are unremarkable. IMPRESSION: 1. The existing postoperative changes consistent with a suboccipital craniotomy and low-lying cerebellar tonsils.. 2. No acute intracranial abnormality. 3. No change from prior study of 12/11/2015 Electronically signed by: Donny Francois M.D. 12/30/2016 4:39 PM Dictated Date/Time: 12/30/2016 4:36 PM
== END | disposition home or self-care (01) ==
LOC: C.MRI 15:45
PROVIDERS: ATTEND Physician Assistant Medical
DX: R55 Syncope and collapse (principal)

== ENCOUNTER 2017-05-31 09:17 | Inpatient (IN) | payer OTHER ==
[~2017-05-31] VITALS: Ht 157.5 cm; Wt 105.6 kg
[2017-05-31] MEDS ORDERED: SODIUM CHLORIDE 0.9% 1000ML 1,000 ML IV STA ×2 (09:27→10:30)
[2017-05-31] MEDS ORDERED: ONDANSETRON INJ 2 MG/ML 2 ML VIAL IV STA (09:30)
[2017-05-31] MEDS ORDERED: MoRPHine SULFATE 4 MG/ML 1 ML CARP\\VIAL IV STA (09:30)
--- NOTE | 2017-05-31 09:35 | EMERGENCY ROOM VISIT NOTE ---
History Report prepared by James: Jazmín Aly Under the Supervision of: Dr. Alex Hernández M.D. First contact with patient: 09:22 Chief Complaint: FALL Stated Complaint: SNYCOPE,FALL,KNEE PAIN History of Present Illness The patient is a 36 year old female who presents to the Emergency Room with complaints of a sudden fall that occurred this morning one hour prior to arrival. She currently rates her discomfort as a 7/10 in severity. Per the patient's fiancee, the patient recently has been following with Neurology for headaches. He states that nothing was found, but the patient was started on medication. The patient's fiancee states that when he arrived home this morning from work, the patient appeared normal. He states that he fell asleep and then woke to the patient texting him that she needed help due to a fall after a loss of consciousness. The patient's fiancee states that he found the patient on the floor in the bathroom after a fall, and the patient was complaining of a head injury and left knee injury. He states that since the fall, the patient has been become more lethargic. The patient states that she currently is experiencing a headache and left knee pain. She states that this morning she was feeling lightheaded. The patient denies any neck pain. She denies any recent illness. Source of History: patient, spouse/significant other () Onset: this morning, one hour prior to arrival Position: other (global) Symptom Intensity: 7/10 Quality: other (fall) Timing: other (sudden) Associated Symptoms: + LOC, + headache Note: Associated Symptoms: left knee pain, lightheadedness Review of Systems See HPI for pertinent positives & negatives. A total of 10 systems reviewed and were otherwise negative. Past Medical & Surgical Medical Problems: (1) Altered mental status (2) Ankle sprain (3) Cellulitis (4) Dizziness (5) Encounter for wound re-check (6) Endometriosis (7) Headache (8) Headache (9) Hx of ectopic (10) Infected insect bite of abdominal wall (11) Intractable headache (12) Lyme disease (13) Nausea (14) Pain, dental (15) Paresthesia of left leg (16) Right knee pain (17) Sepsis (18) Severe headache (19) Tachycardia (20) Unresponsive episode (21) UTI (urinary tract infection) (22) Vaginal bleeding in patient at less than 20 weeks gestation (23) Vertigo (24) Weakness Surgical Problems: (1) Chiari malformation Family History FH: mental illness Heart disease Social History Smoking Status: Never Smoker Alcohol Use: none Drug Use: none Marital Status: , other Housing Status: lives with family Occupation Status: employed Current/Historical Medications Scheduled Ranitidine (Zantac), 150 MG PO BID Scheduled PRN Tramadol (Ultram), 50 MG PO Q4H PRN for Pain Allergies Coded Allergies: Albuterol (Verified Allergy, Unknown, 05/31/17) Fish Allergy (Verified Allergy, Unknown, SEAFOOD ALLERGY, 05/31/17) Physical Exam Vital Signs Date Time Temp Pulse Resp B/P (MAP) Pulse Ox O2 Delivery O2 Flow Rate FiO2 05/31/17 12:45 36.9 84 16 119/76 96 Room Air 05/31/17 12:31 100 16 136/89 98 Room Air 05/31/17 12:01 100 16 131/84 98 Room Air 05/31/17 11:41 96 16 96 05/31/17 11:36 102 20 139/81 100 Room Air 05/31/17 11:06 111 18 100 05/31/17 11:01 100 17 127/78 100 Room Air 05/31/17 10:25 117 16 134/74 100 Room Air 120 143/81 93 137/79 05/31/17 10:13 96 20 129/79 100 Room Air 05/31/17 09:47 111 17 97 Room Air 05/31/17 09:31 122/57 05/31/17 09:29 111 05/31/17 09:29 95 Room Air 05/31/17 09:28 117/68 05/31/17 09:18 36.9 122 20 137/84 94 Room Air Physical Exam GENERAL: Patient is in no acute distress. HEENT: No acute trauma, normocephalic atraumatic, mucous membranes moist, no nasal congestion, no scleral icterus. NECK: No stridor, no adenopathy, no meningismus, trachea is midline. Nontender c -spine LUNGS: Clear to auscultation bilaterally, no wheeze, no rhonchi, breath sounds equal. HEART: Tachycardic with a regular rhythm, no murmurs ABDOMEN: Soft, nontender, bowel sounds positive, no hernias, no peritonitis. EXTREMITIES: Pain to move the right knee. No contusion or deformity. Other 3 extremities show no pain to palpation or movement. NEUROLOGIC: Somnolent, answers questions appropriately, no focal deficits, no speech slur SKIN: No rash, no jaundice, no diaphoresis. Medical Decision & Procedures ER Provider Diagnostic Interpretation: Orthostatic vital signs were negative. Radiology results as stated below per my review and radiologist interpretation: RIGHT KNEE 3 VIEWS CLINICAL HISTORY: Right knee pain following fall. COMPARISON: Right knee radiographs October 09, 2016. FINDINGS: Alignment of the right knee is anatomic. No acute fracture or joint effusion is identified. Joint spaces are preserved. IMPRESSION: No acute fracture or joint effusion of the right knee. Electronically signed by: Michelet Cifuentes M.D. 05/31/2017 9:54 AM Dictated Date/Time: 05/31/2017 9:[address] HEAD WITHOUT CONTRAST (CT) CLINICAL HISTORY: Change in mental status. Fall in shower. Possible syncope. COMPARISON STUDY: 12/14/2016 TECHNIQUE: Axial CT of the brain is performed from the vertex to the skull base. IV contrast was not administered for this examination. A dose lowering technique was utilized adhering to the principles of ALARA. CT DOSE: 537.48 mGy.cm FINDINGS: There are postsurgical changes of suboccipital craniotomy. No intra or extra-axial mass lesions are visualized. There is no CT evidence of acute cortical infarction. There is no midline shift. There is no acute hemorrhage. There is no evidence of pathologic ventricular dilatation. There is no evidence of acute sinusitis IMPRESSION: 1. Postsurgical changes of a prior suboccipital craniotomy 2. No acute intracranial findings. Electronically signed by: Andre Weeks M.D. 05/31/2017 10:10 AM Dictated Date/Time: 05/31/2017 10:08 AM CHEST ONE VIEW PORTABLE CLINICAL HISTORY: Syncope. Trauma. Altered mental status. COMPARISON STUDY: 12/14/2016 FINDINGS: The cardiac and mediastinal contours are normal. There is no evidence of focal pulmonary consolidation. There is no evidence of failure. No pleural effusions are visualized.[ IMPRESSION: No active disease in the chest. Electronically signed by: Andre Weeks M.D. 05/31/2017 9:54 AM Dictated Date/Time: 05/31/2017 9:53 AM Laboratory Results 05/31/17 09:30 Red Blood Count 4.58, Mean Corpuscular Volume 84.9, Mean Corpuscular Hemoglobin 28.8, Mean Corpuscular Hemoglobin Concent 33.9, Mean Platelet Volume 10.7, Neutrophils (%) (Auto) 74.6, Lymphocytes (%) (Auto) 18.5, Monocytes (%) (Auto) 4.7, Eosinophils (%) (Auto) 1.8, Basophils (%) (Auto) 0.1, Neutrophils # (Auto) 5.02, Lymphocytes # (Auto) 1.25, Monocytes # (Auto) 0.32, Eosinophils # (Auto) 0.12, Basophils # (Auto) 0.01 05/31/17 09:30 Test 05/31/17 09:30 05/31/17 09:52 05/31/17 10:30 05/31/17 11:33 White Blood Count 6.74 K/uL (4.8-10.8) Red Blood Count 4.58 M/uL (4.2-5.4) Hemoglobin 13.2 g/dL (12.0-16.0) Hematocrit 38.9 % (37-47) Mean Corpuscular Volume 84.9 fL (80-100) Mean Corpuscular Hemoglobin 28.8 pg (25-34) Mean Corpuscular Hemoglobin Concent 33.9 g/dl (32-36) Platelet Count 198 K/uL (130-400) Mean Platelet Volume 10.7 fL (7.4-10.4) Neutrophils (%) (Auto) 74.6 % Lymphocytes (%) (Auto) 18.5 % Monocytes (%) (Auto) 4.7 % Eosinophils (%) (Auto) 1.8 % Basophils (%) (Auto) 0.1 % Neutrophils # (Auto) 5.02 K/uL (1.4-6.5) Lymphocytes # (Auto) 1.25 K/uL (1.2-3.4) Monocytes # (Auto) 0.32 K/uL (0.11-0.59) Eosinophils # (Auto) 0.12 K/uL (0-0.5) Basophils # (Auto) 0.01 K/uL (0-0.2) RDW Standard Deviation 41.4 fL (36.4-46.3) RDW Coefficient of Variation 13.5 % (11.5-14.5) Immature Granulocyte % (Auto) 0.3 % Immature Granulocyte # (Auto) 0.02 K/uL (0.00-0.02) Anion Gap 9.0 mmol/L (3-11) Estimated GFR () 92.3 Estimated GFR (Non- 79.6 BUN/Creatinine Ratio 9.6 (10-20) Calcium Level 8.4 mg/dl (8.5-10.1) Magnesium Level 2.1 mg/dl (1.8-2.4) Total Bilirubin 0.4 mg/dl (0.2-1) Aspartate Amino Transf (AST/SGOT) 7 U/L (15-37) Alanine Aminotransferase (ALT/SGPT) 14 U/L (12-78) Alkaline Phosphatase 86 U/L (45-117) Total Creatine Kinase 49 U/L (26-192) Total Protein 7.0 gm/dl (6.4-8.2) Albumin 3.5 gm/dl (3.4-5.0) Globulin 3.5 gm/dl (2.5-4.0) Albumin/Globulin Ratio 1.0 (0.9-2) Thyroid Stimulating Hormone (TSH) 1.030 uIu/ml (0.300-4.500) Human Chorionic Gonadotropin, Qual NEG (NEG) Bedside D-Dimer 413 ng/mlFEU (0-450) Urine Color YELLOW Urine Appearance CLEAR (CLEAR) Urine pH 6.5 (4.5-7.5) Urine Specific [place] 1.011 (1.000-1.030) Urine Protein NEG (NEG) Urine Glucose (UA) NEG (NEG) Urine Ketones NEG (NEG) Urine Occult Blood NEG (NEG) Urine Nitrite NEG (NEG) Urine Bilirubin NEG (NEG) Urine Urobilinogen NEG (NEG) Urine Leukocyte Esterase NEG (NEG) Urine Opiates Screen POS (NEG) Urine Methadone, Qualitative NEG (NEG) Urine Barbiturates NEG (NEG) Urine Phencyclidine (PCP) Level NEG (NEG) Ur Amphetamine/Methamphetamine NEG (NEG) MDMA (Ecstasy) Screen NEG (NEG) Urine Benzodiazepines Screen NEG (NEG) Urine Cocaine Metabolite NEG (NEG) Urine Marijuana (THC) NEG (NEG) Bedside Troponin I < 0.030 ng/ml (0-0.045) Laboratory results reviewed by me. Medications Administered Medications (Trade) Dose Ordered Sig/Lelia Route Start Time Stop Time Status Last Admin Dose Admin Sodium Chloride 1,000 ml @ 999 mls/hr Q1H1M STAT IV 05/31/17 09:27 05/31/17 10:27 DC 05/31/17 09:27 999 MLS/HR Morphine Sulfate (MoRPHine SULFATE INJ) 4 mg NOW STAT IV 05/31/17 09:30 05/31/17 09:31 DC 05/31/17 09:37 4 MG Ondansetron HCl (Zofran Inj) 4 mg NOW STAT IV 05/31/17 09:30 05/31/17 09:31 DC 05/31/17 09:37 4 MG Sodium Chloride 1,000 ml @ 999 mls/hr Q1H1M STAT IV 05/31/17 10:30 05/31/17 11:30 DC 05/31/17 10:30 999 MLS/HR Sodium Chloride 1,000 ml @ 125 mls/hr Q8H IV 05/31/17 12:48 06/30/17 12:47 05/31/17 13:56 125 MLS/HR ECG Indication: syncope Rate (beats per minute): 103 Rhythm: sinus tachycardia Findings: no acute ischemic change, no ectopy ED Course 0922: The patient was evaluated in room A11B. A complete history and physical exam was performed. 0927: Ordered Sodium Chloride 1000 ml @ 999 mls/hr IV. 0930: Ordered Zofran Inj 4 mg IV, Morphine Sulfate 4 mg IV. 1030: Ordered Sodium Chloride 1000 ml @ 999 mls/hr IV. 1217: I reevaluated the patient and she is the same. I discussed the exam findings with the patients significant other and I discussed the treatment plan. He verbalized complete understanding and agreement. The patient will be evaluated for further treatment. 1240: I discussed the patients case with ERNESTO Oliver. He is going to evaluate the patient for further treatment. Medical Decision The patient is a 36 year old female who presents to the ED with complaints of a fall. Differential diagnoses considered include Dysrhythmia, PE, dehydration, infection, electrolyte imbalance, intracranial bleeding, fracture. There is no leukocytosis or concerning anemia. No significant electrolyte abnormality, kidney failure or hepatitis. The patient appears to be in a euthyroid state. Brain CT shows no acute bleed or mass effect. Chest film does not show pneumonia or CHF. Right knee film does not show evidence for fracture. EKG shows sinus tachycardia, no acute ischemia. Cardiac enzyme testing 2 is not consistent with acute cardiac injury. testing is negative. Urinalysis does not show infection. Urine tox shows opiates. D- dimer testing is negative. With a negative d-dimer and my low suspicion for PE , I will stop the workup for this diagnosis. Patient received IV saline, IV Zofran and IV morphine. Her heart rate has improved. She remains somewhat somnolent but awakes to voice. Patient has not made significant improvement since being treated in the ER. At this point, the cause for the mental status change is not clear. Certainly, her presentation may be medication related. She is on some new meds for her diagnosis of migraine headaches. I do not find evidence for a focal neurologic deficit. The patient is more somnolent than anything. I spoke to her fianc, I talked with case management. Admission/observation is warranted. The on-call hospitalist was consulted. Head Trauma GCS Score: 14 Medication Reconcilliation Current Medication List: was personally reviewed by me Consults Time Called: 1235 Consulting Physician: ERNESTO Oliver Returned Call: 1240 I discussed the patients case with ERNESTO Oliver. He is going to evaluate the patient for further treatment. Impression Primary Impression: Change in mental status Additional Impressions: Tachycardia Fall Contusion of right knee Scribe Attestation The scribe's documentation has been prepared under my direction and personally reviewed by me in its entirety. I confirm that the note above accurately reflects all work, treatment, procedures, and medical decision making performed by me. Departure Information Dispostion Being Evaluated By Hospitalist Referrals Guillermo Fink M.D. (PCP) Problem Qualifiers
[2017-05-31] MEDS ORDERED: ZNTT/150 PO (09:37)
[2017-05-31] MEDS ORDERED: TRAM-10 PO (09:37)
[2017-05-31 09:47] LABS: BASO % 0.1 %; BASO ABS # 0.01 K/uL (0-0.2); COMPLETE YES; EOS % 1.8 %; HEMATOCRIT 38.9 % (37-47); IG% 0.3 %; LYMPH % 18.5 %; LYMPH ABS # 1.25 K/uL (1.2-3.4); MEAN CELL VOLUME 84.9 fL (80-100); MEAN CORPUSCULAR HEMOGLOBIN 28.8 pg (25-34); MEAN CORPUSCULAR HGB CONC 33.9 g/dl (32-36); MEAN PLATELET VOLUME 10.7 fL (7.4-10.4); MONO % 4.7 %; NEUT % 74.6 %; PLATELET COUNT 198 K/uL (130-400); RED BLOOD COUNT 4.58 M/uL (4.2-5.4); WHITE BLOOD COUNT 6.74 K/uL (4.8-10.8)
--- NOTE | 2017-05-31 09:55 | DIAGNOSTIC IMAGING REPORT ---
CHEST ONE VIEW PORTABLE CLINICAL HISTORY: Syncope. Trauma. Altered mental status. COMPARISON STUDY: 12/14/2016 FINDINGS: The cardiac and mediastinal contours are normal. There is no evidence of focal pulmonary consolidation. There is no evidence of failure. No pleural effusions are visualized.[ IMPRESSION: No active disease in the chest. Electronically signed by: Andre Weeks M.D. 05/31/2017 9:54 AM Dictated Date/Time: 05/31/2017 9:53 AM
--- NOTE | 2017-05-31 09:55 | DIAGNOSTIC IMAGING REPORT ---
RIGHT KNEE 3 VIEWS CLINICAL HISTORY: Right knee pain following fall. COMPARISON: Right knee radiographs October 09, 2016. FINDINGS: Alignment of the right knee is anatomic. No acute fracture or joint effusion is identified. Joint spaces are preserved. IMPRESSION: No acute fracture or joint effusion of the right knee. Electronically signed by: Michelet Cifuentes M.D. 05/31/2017 9:54 AM Dictated Date/Time: 05/31/2017 9:53 AM
[2017-05-31 10:05] LABS: ALT/SGPT 14 U/L (12-78); AST/SGOT 7 U/L (15-37); BLOOD UREA NITROGEN 9 mg/dl (7-18); BUN/CREATININE RATIO 9.6 (10-20); CALCIUM 8.4 mg/dl (8.5-10.1); CARBON DIOXIDE 23 mmol/L (21-32); CHLORIDE 109 mmol/L (98-107); CREATININE 0.93 mg/dl (0.60-1.20); GLUCOSE 108 mg/dl (70-99); MAGNESIUM 2.1 mg/dl (1.8-2.4); POTASSIUM 3.5 mmol/L (3.5-5.1); SODIUM 141 mmol/L (136-145)
[2017-05-31 10:07] LABS: POINT OF CARE TROPONIN I < 0.030 ng/ml (0-0.045)
[2017-05-31 10:07] LABS: PREG INTERNAL NEGATIVE QC NEG CLEAR BACKGROUND; PREG INTERNAL POSITIVE QC POS CONTROL LINE
--- NOTE | 2017-05-31 10:11 | DIAGNOSTIC IMAGING REPORT ---
CT HEAD WITHOUT CONTRAST (CT) CLINICAL HISTORY: Change in mental status. Fall in shower. Possible syncope. COMPARISON STUDY: 12/14/2016 TECHNIQUE: Axial CT of the brain is performed from the vertex to the skull base. IV contrast was not administered for this examination. A dose lowering technique was utilized adhering to the principles of ALARA. CT DOSE: 537.48 mGy.cm FINDINGS: There are postsurgical changes of suboccipital craniotomy. No intra or extra-axial mass lesions are visualized. There is no CT evidence of acute cortical infarction. There is no midline shift. There is no acute hemorrhage. There is no evidence of pathologic ventricular dilatation. There is no evidence of acute sinusitis IMPRESSION: 1. Postsurgical changes of a prior suboccipital craniotomy 2. No acute intracranial findings. Electronically signed by: Andre Weeks M.D. 05/31/2017 10:10 AM Dictated Date/Time: 05/31/2017 10:08 AM
[2017-05-31 10:15] LABS: ALKALINE PHOSPHATASE 86 U/L (45-117)
[2017-05-31 10:52] LABS: URINE APPEARANCE CLEAR (CLEAR); URINE BILIRUBIN NEG (NEG); URINE COLOR YELLOW; URINE NITRITE NEG (NEG); URINE PH 6.5 (4.5-7.5); URINE SPECIFIC GRAVITY 1.011 (1.000-1.030); UROBILINOGEN NEG (NEG); ZZUR CULT IF INDIC CLEAN CATCH NO
[2017-05-31 10:53] LABS: MANUAL MICROSCOPIC REQUIRED? NO; REVIEW REQ? NO
[2017-05-31 11:16] LABS: BENZODIAZEPINE, URINE NEG (NEG); COCAINE,URINE NEG (NEG); PHENCYCLIDINE, URINE NEG (NEG)
[2017-05-31 12:45] VITALS: BP_SYST 119; BP_SYST 136; BP_DIAS 76; BP_DIAS 89; PULSE 84; PULSE 94; TEMP 36.9; O2SAT 96; Ht 157.5 cm; Wt 105.6 kg
[2017-05-31] MEDS ORDERED: ONDANSETRON INJ 2 MG/ML 2 ML VIAL IV PRN (13:00)
--- NOTE | 2017-05-31 13:10 | History and Physical ---
History & Physical Date & Time of Service: May 31, 2017 at 12:53 Chief Complaint: Snycope,Fall,Knee Pain Primary Care Physician: Guillermo Fink M.D. History of Present Illness Source: patient, other (bia) Pt is a 36 yo female with hx of migraines, chiari malformation who presents to the ER with complaints of a sudden fall that occurred this morning. History obtained by bia as pt is somnolent and difficult to arouse. 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 Bia found her in bathroom. No loss of consciousness, seizure activity noted. Pt does have hx of chiari malformation and migraines in which she was just placed on tramadol for by Francine VIVAS. Bia checked ultram pill box and no missing pills noted. Per bia, pt has had these epsiodes in the past. No preceeding symptoms prior to fall, including chest pain, or shortness of breath. Pt reports no illness in past week. Past Medical/Surgical History Medical Problems: (1) Altered mental status Status: Resolved (2) Ankle sprain Status: Resolved (3) Cellulitis Status: Resolved (4) Dizziness Status: Resolved (5) Encounter for wound re-check Status: Resolved (6) Endometriosis Status: Resolved (7) Headache Status: Resolved (8) Headache Status: Resolved (9) Hx of ectopic Status: Resolved (10) Infected insect bite of abdominal wall Status: Resolved (11) Intractable headache Status: Resolved (12) Lyme disease Status: Resolved (13) Nausea Status: Resolved (14) Pain, dental Status: Resolved (15) Paresthesia of left leg Status: Resolved (16) Right knee pain Status: Resolved (17) Sepsis Status: Resolved (18) Severe headache Status: Resolved (19) Tachycardia Status: Resolved (20) Unresponsive episode Status: Resolved (21) UTI (urinary tract infection) Status: Resolved (22) Vaginal bleeding in patient at less than 20 weeks gestation Status: Resolved (23) Vertigo Status: Resolved (24) Weakness Status: Resolved Surgical Problems: (1) Chiari malformation Status: Resolved Family History FH: mental illness Heart disease Social History Smoking Status: Never Smoker Alcohol Use: socially (1 wine cooler every few days) Drug Use: none Marital Status: , other Housing status: lives with family Occupational Status: employed Immunizations History of Influenza Vaccine: No Influenza Vaccine Date: Jul 12, 2008 History of Tetanus Vaccine?: states up to date Tetanus Immunization Date: Sep 13, 2007 History of Pneumococcal: No History of Hepatitis B Vaccine: Yes Hepatitis Immunization Date: Oct 14, 2007 Multi-Drug Resistant Organisms History of MDRO: No Allergies Coded Allergies: Albuterol (Verified Allergy, Unknown, 05/31/17) Fish Allergy (Verified Allergy, Unknown, SEAFOOD ALLERGY, 05/31/17) Home Medications Scheduled Ranitidine (Zantac), 150 MG PO BID Scheduled PRN Tramadol (Ultram), 50 MG PO Q4H PRN for Pain Review of Systems Unable to obtain as pt is difficult to arouse Physical Exam Vital Signs Date Time Temp Pulse Resp B/P (MAP) Pulse Ox O2 Delivery O2 Flow Rate FiO2 05/31/17 11:36 102 20 139/81 100 Room Air 05/31/17 11:06 111 18 100 05/31/17 11:01 100 17 127/78 100 Room Air 05/31/17 10:25 117 16 134/74 100 Room Air 120 143/81 93 137/79 05/31/17 10:13 96 20 129/79 100 Room Air 05/31/17 09:47 111 17 97 Room Air 05/31/17 09:31 122/57 05/31/17 09:29 111 05/31/17 09:29 95 Room Air 05/31/17 09:28 117/68 05/31/17 09:18 36.9 122 20 137/84 94 Room Air General Appearance: WD/WN, + mild distress, + obese Head: normocephalic, atraumatic Neck: supple, no adenopathy, thyroid normal Respiratory/Chest: chest non-tender, lungs clear, normal breath sounds Cardiovascular: no edema, no gallop, no JVD, + tachycardia Abdomen/GI: normal bowel sounds, non tender, soft, no organomegaly Back: normal inspection, no CVA tenderness, no muscle spasm Neurologic/Psych: + pertinent finding (deferred due to somnolence) Skin: normal color, warm/dry, no rash Lymphatic: no adenopathy Diagnostics Laboratory Results Results Past 24 Hours Test 05/31/17 09:30 9/18/17 09:52 05/31/17 10:30 05/31/17 11:33 Range/Units White Blood Count 6.74 4.8-10.8 K/uL Red Blood Count 4.58 4.2-5.4 M/uL Hemoglobin 13.2 12.0-16.0 g/dL Hematocrit 38.9 37-47 % Mean Corpuscular Volume 84.9 80-100 fL Mean Corpuscular Hemoglobin 28.8 25-34 pg Mean Corpuscular Hemoglobin Concent 33.9 32-36 g/dl Platelet Count 198 130-400 K/uL Mean Platelet Volume 10.7 7.4-10.4 fL Neutrophils (%) (Auto) 74.6 % Lymphocytes (%) (Auto) 18.5 % Monocytes (%) (Auto) 4.7 % Eosinophils (%) (Auto) 1.8 % Basophils (%) (Auto) 0.1 % Neutrophils # (Auto) 5.02 1.4-6.5 K/uL Lymphocytes # (Auto) 1.25 1.2-3.4 K/uL Monocytes # (Auto) 0.32 0.11-0.59 K/uL Eosinophils # (Auto) 0.12 0-0.5 K/uL Basophils # (Auto) 0.01 0-0.2 K/uL RDW Standard Deviation 41.4 36.4-46.3 fL RDW Coefficient of Variation 13.5 11.5-14.5 % Immature Granulocyte % (Auto) 0.3 % Immature Granulocyte # (Auto) 0.02 0.00-0.02 K/uL Sodium Level 141 136-145 mmol/L Potassium Level 3.5 3.5-5.1 mmol/L Chloride Level 109 98-107 mmol/L Carbon Dioxide Level 23 21-32 mmol/L Anion Gap 9.0 3-11 mmol/L Blood Urea Nitrogen 9 7-18 mg/dl Creatinine 0.93 0.60-1.20 mg/dl Estimated GFR () 92.3 Estimated GFR (Non- 79.6 BUN/Creatinine Ratio 9.6 10-20 Random Glucose 108 70-99 mg/dl Calcium Level 8.4 8.5-10.1 mg/dl Magnesium Level 2.1 1.8-2.4 mg/dl Total Bilirubin 0.4 0.2-1 mg/dl Aspartate Amino Transf (AST/SGOT) 7 15-37 U/L Alanine Aminotransferase (ALT/SGPT) 14 12-78 U/L Alkaline Phosphatase 86 45-117 U/L Total Creatine Kinase 49 26-192 U/L Total Protein 7.0 6.4-8.2 gm/dl Albumin 3.5 3.4-5.0 gm/dl Globulin 3.5 2.5-4.0 gm/dl Albumin/Globulin Ratio 1.0 0.9-2 Thyroid Stimulating Hormone (TSH) 1.030 0.300-4.500 uIu/ml Human Chorionic Gonadotropin, Qual NEG NEG Bedside D-Dimer 413 0-450 ng/mlFEU Bedside Troponin I < 0.030 < 0.030 0-0.045 ng/ml Urine Color YELLOW Urine Appearance CLEAR CLEAR Urine pH 6.5 4.5-7.5 Urine Specific [place] 1.011 1.000-1.030 Urine Protein NEG NEG Urine Glucose (UA) NEG NEG Urine Ketones NEG NEG Urine Occult Blood NEG NEG Urine Nitrite NEG NEG Urine Bilirubin NEG NEG Urine Urobilinogen NEG NEG Urine Leukocyte Esterase NEG NEG Urine Opiates Screen POS NEG Urine Methadone, Qualitative NEG NEG Urine Barbiturates NEG NEG Urine Phencyclidine (PCP) Level NEG NEG Ur Amphetamine/Methamphetamine NEG NEG MDMA (Ecstasy) Screen NEG NEG Urine Benzodiazepines Screen NEG NEG Urine Cocaine Metabolite NEG NEG Urine Marijuana (THC) NEG NEG Impression Assessment and Plan Pt is a 36 yo female with hx of acute migraines, Chiari malformation who presents to ER with fall [employer] Fall with noted tachycardia - Will admit to tele at this time. 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 Unlikely in the case as ddimer is not elevated. Pt does have hx of migraines and was recently placed on tramadol. Pt and fiance denies any tramadol use. Tachycardia improved with IVF. No source of infection noted. Will not repeat MRI at this time as one completed last yr, but if sx worsen or focal deficits noted, this may be indicated Hx of migraines - Please hold tramadol at this time Knee pain s/p fall, no acute pathology noted on knee XR Pt is FULL CODE VTE Prophylaxis VTE Risk Assessment Done? Y/N: Yes Risk Level: High
--- NOTE | 2017-05-31 13:30 | DIAGNOSTIC IMAGING REPORT ---
CT ANGIOGRAM OF THE CHEST CLINICAL HISTORY: Syncope. History of DVT. Possible pulmonary embolism. COMPARISON STUDY: 12/05/2009 TECHNIQUE: Following the IV administration of 109 mL of [id number]-[id number], CT angiogram of the thorax was performed from the thoracic inlet to the lung bases utilizing the pulmonary embolus protocol. Images are reviewed in the axial, sagittal, and coronal planes. IV contrast was administered without complication. MIP imaging was performed. A dose lowering technique was utilized adhering to the principles of ALARA. CT DOSE: 552.20 mGy.cm FINDINGS: No pathologically enlarged axillary mediastinal or hilar lymph nodes were visualized. There was no evidence of thoracic aortic dilatation. There were no pulmonary artery filling defects to indicate acute pulmonary embolism. No pleural effusions are visualized. There is mild lower lobe bronchial wall thickening and mucous plugging. There is no focal pulmonary consolidation. Dependent groundglass opacities and linear opacities are likely atelectatic. IMPRESSION: 1. No evidence of acute pulmonary embolism 2. No evidence of pathologic adenopathy 3. Minor lower lobe bronchial wall thickening and mucous plugging. Electronically signed by: Andre Weeks M.D. 05/31/2017 1:29 PM Dictated Date/Time: 05/31/2017 1:26 PM
[2017-05-31 13:55] LABS: PROTHROMBIN TIME (PATIENT) 10.4 SECONDS (9.0-12.0)
[2017-05-31] MEDS: SODIUM CHLORIDE 0.9% 1000ML 1,000 ML IV SCH ×2 (13:56→20:06)
[2017-05-31 15:13] VITALS: BP 122/81; PULSE 91; TEMP 37.1; O2SAT 97
[2017-05-31] MEDS: ACETAMINOPHEN 325 MG TAB PO PRN ×2 (17:55→22:11)
--- NOTE | 2017-05-31 19:56 | DIAGNOSTIC IMAGING REPORT ---
ULTRASOUND BILATERAL LOWER EXTREMITY VENOUS CLINICAL HISTORY: Tachycardia. Syncope. Knee pain. Clinical concern for deep venous thrombosis. COMPARISON STUDY: Left lower extremity venous ultrasound dated 09/27/2015. TECHNIQUE: Real-time, grayscale, and color Doppler sonography of the deep veins of the right and left lower extremity was performed from the inguinal crease to the calf. Compression and augmentation were utilized. FINDINGS: There is no sonographic evidence of deep venous thrombosis identified in the right or left lower extremity. The common femoral, superficial femoral, and popliteal veins are patent and normally compressible bilaterally. The greater saphenous vein and the profunda femoris vein at the junction with the common femoral vein are clear in both legs. The visualized calf veins are patent bilaterally. IMPRESSION: There is no sonographic evidence of deep venous thrombosis identified in the right or left lower extremity. Electronically signed by: Alex Adler M.D. 05/31/2017 7:55 PM Dictated Date/Time: 05/31/2017 7:54 PM
[2017-05-31 20:02] VITALS: BP 126/79; PULSE 88; TEMP 37.3; O2SAT 97
[2017-05-31] MEDS: RANITIDINE HCL 150 MG TAB PO SCH (20:07)
[2017-05-31] MEDS: ENOXAPARIN 40 MG/0.4 ML SYR SC SCH (20:07)
[2017-06-01] VITALS (8 sets, daily range): BP systolic 107–124; BP diastolic 67–78; PULSE 79–102; TEMP 36.4–37.2; O2SAT 96–98
[2017-06-01] MEDS: SODIUM CHLORIDE 0.9% 1000ML 1,000 ML IV SCH ×3 (03:45→21:32)
[2017-06-01] MEDS: ACETAMINOPHEN 325 MG TAB PO PRN ×2 (04:51→11:15)
[2017-06-01] MEDS ORDERED: NURSING VERBAL MED ORDER ONE (05:00)
[2017-06-01] MEDS: RANITIDINE HCL 150 MG TAB PO SCH ×2 (07:36→19:48)
[2017-06-01] MEDS: TRAMADOL HCL 50 MG TAB PO PRN ×2 (12:30→19:48)
--- NOTE | 2017-06-01 13:53 | Progress Note ---
Subjective Date of Service: Jun 01, 2017. Subjective Pt evaluation today including: conversation w/ patient, conversation w/ family (fiance), physical exam, lab review, review of studies, review of inpatient medication list Pain: headache PO Intake: poor appetite Voiding: no voiding problems patient somnolent today, would not open eyes much during conversation c/o headache, not like a typical migraine, thinks it was from hitting her head when she fell no other reports of pain talked with her fiance in the room she had the occipital craniotomy a year ago for vertigo and headaches and was found to have Chiari malformation vertigo resolved, minimal headaches was prescribed Ultram but had not taken a dose at home reviewed numerous imaging studies, all normal reviewed lab work that was normal as well no fevers, vitals stable, okay for medical floor fieligio did mention that she has been overworking herself recently, 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 not sleeping as much as needed Problem List Medical Problems: (1) Change in mental status Status: Acute (2) Contusion of multiple sites Status: Acute (3) Contusion of right knee Status: Acute (4) Fall Status: Acute (5) Fall Status: Acute (6) Knee pain Status: Acute (7) Syncope Status: Acute Review of Systems Constitutional: + weakness, + fatigue, + problem reported All Other Systems: Reviewed and Negative Medications Current Inpatient Medications Medications (Trade) Dose Ordered Sig/Lelia Route Start Time Stop Time Status Last Admin Dose Admin Enoxaparin Sodium (Lovenox Inj) 40 mg Q24H SC 05/31/17 21:00 06/30/17 12:59 05/31/17 20:07 40 MG Acetaminophen (Tylenol Tab) 650 mg Q4H PRN PO 05/31/17 13:00 06/30/17 12:59 06/01/17 11:15 650 MG Ondansetron HCl (Zofran Inj) 4 mg Q6H PRN IV 05/31/17 13:00 06/30/17 12:59 Ranitidine HCl (zANTac TAB) 150 mg BID PO 05/31/17 21:00 06/30/17 20:59 06/01/17 07:36 150 MG Tramadol HCl (Ultram Tab) 50 mg Q4H PRN PO 06/01/17 12:15 07/01/17 12:14 06/01/17 12:30 50 MG Sodium Chloride 1,000 ml @ 125 mls/hr Q8H IV 06/01/17 12:15 07/01/17 12:14 06/01/17 12:28 125 MLS/HR Objective Vital Signs Date Time Temp Pulse Resp B/P (MAP) Pulse Ox O2 Delivery O2 Flow Rate FiO2 06/01/17 13:05 36.7 79 22 123/67 (85) 98 Room Air 06/01/17 12:46 36.8 93 16 97 06/01/17 12:10 36.8 93 16 112/78 (89) 97 Room Air 06/01/17 12:00 Room Air 06/01/17 08:21 37.1 94 16 122/78 (93) 96 06/01/17 08:00 Room Air 06/01/17 04:06 37.0 102 18 124/77 (93) 96 Room Air 06/01/17 04:00 Room Air 06/01/17 00:04 37.2 94 18 112/72 (85) 96 Room Air 06/01/17 00:00 Room Air 05/31/17 20:02 37.3 88 18 126/79 (95) 97 Room Air 05/31/17 20:00 Room Air 05/31/17 16:43 Room Air 05/31/17 15:13 37.1 91 16 122/81 (95) 97 Room Air Physical Exam General Appearance: no apparent distress, + obese Eyes: + pertinent finding (pupils dilated, normal reaction to light) Respiratory/Chest: chest non-tender, lungs clear, normal breath sounds, no respiratory distress, no accessory muscle use Cardiovascular: regular rate, rhythm, no edema, no gallop, no JVD, no murmur Abdomen: normal bowel sounds, non tender, soft, no organomegaly Extremities: normal range of motion, non-tender, normal inspection, no pedal edema, no calf tenderness Neurologic/Psychiatric: 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-XII nml as tested, no motor/sensory deficits, alert, normal mood/affect, oriented x 3 Laboratory Results Last 24 Hours Test 05/31/17 14:36 Ammonia 12.0 umol/L Vitamin B12 Level 231 pg/mL Assessment and Plan Pt is a 36 yo female with hx of acute migraines, Chiari malformation s/p occipital craniotomy who presents to ER with fall [employer] CLE[employer] and somnolence and headache - Unwitnessed fall at home: no obvious injuries, c/o headache but otherwise okay no obvious etiology at this point CT head, CTA chest, CXR all normal no signs of infection, normal renal function no signs of medication overdose no seizure activity no arrhythmia on monitor, enzymes normal, TSH normal likely combination of dehydration, lack of sleep, overworking will move to medical floor, continue IV hydration overnight - Tachycardia: resolved with IV fluids appears dry still on exam, continue NSS at 125cc/hr - Migraine headaches: mild, intermittent with PAUL now, will use the Ultram she was prescribed as outpatient - s/p craniotomy for Chiari malformation: no further vertigo plan: d/c home tomorrow morning after rest and further fluids
[2017-06-01] MEDS: ENOXAPARIN 40 MG/0.4 ML SYR SC SCH (21:33)
[2017-06-02] MEDS: SODIUM CHLORIDE 0.9% 1000ML 1,000 ML IV SCH (06:22)
[2017-06-02] MEDS: TRAMADOL HCL 50 MG TAB PO PRN (06:23)
[2017-06-02 07:40] VITALS: BP 107/72; PULSE 83; TEMP 36.8; O2SAT 96
[2017-06-02 08:00] VITALS: O2SAT 96
[2017-06-02] MEDS: RANITIDINE HCL 150 MG TAB PO SCH ×2 (08:57→20:45)
[2017-06-02] MEDS: ACETAMINOPHEN 325 MG TAB PO PRN (08:59)
[2017-06-02 10:13] LABS: COD UR NEGATIVE NG/ML (CUTOFF=50); HYDROCOD UR NEGATIVE NG/ML (CUTOFF=50); HYDROMOR UR NEGATIVE NG/ML (CUTOFF=50); MORPHINE UR 853 NG/ML (CUTOFF=50); NORHYDROCODONE CONF UR NEGATIVE NG/ML (CUTOFF=50); OXYMORPH UR NEGATIVE NG/ML (CUTOFF=50)
[2017-06-02] MEDS ORDERED: RIZATRIPTAN BENZOATE 10 MG TAB PO ONE (12:00)
[2017-06-02 12:05] VITALS: BP 110/74; PULSE 80; TEMP 36.8; O2SAT 96
[2017-06-02] MEDS ORDERED: NURSING VERBAL MED ORDER ONE (12:30)
[2017-06-02] MEDS ORDERED: PROMETHAZINE HCL INJ 25 MG in SODIUM CHLORIDE 0.9% 50ML 50 ML IV PRN (13:45)
[2017-06-02] MEDS ORDERED: METHYLPREDNISOLONE IV 40 MG in SYRINGE 0 ML IV ONE ×2 (13:45→14:30)
[2017-06-02] MEDS ORDERED: DIVALPROEX SODIUM 250 MG DELAY REL TAB PO ONE (13:45)
[2017-06-02 14:49] VITALS: BP 117/78; PULSE 81; TEMP 36.8; O2SAT 95
--- NOTE | 2017-06-02 16:21 | Medical Student: [facility] ---
Med Student Progress Note Date of Service Jun 02, 2017. Subjective Pt evaluation today including: conversation w/ patient, physical exam, chart review, lab review, review of studies, review of inpatient medication list Pain: headache 7/10 PO Intake: low Voiding: no voiding problems This is 36 yo female with hx of migraines and chiari malformation s/p suboccipital craniotomy presented to the Er with complaints of fall. Today, she still feels weak, tired, severe headache (7/10) localized to one side. Light and sound bother her. Also dizziness and nausea. Denies CP, SOB, change in BM or urination. Patient is not very responsive to questions. Review of Systems Constitutional: No fever Respiratory: No shortness of breath Cardiac: No chest pain Abdomen: + nausea, + vomiting, No pain Musculoskeletal: + problem reported (knee pain) Female : No dysuria Objective Vital Signs Date Time Temp Pulse Resp B/P (MAP) Pulse Ox O2 Delivery O2 Flow Rate FiO2 06/02/17 14:49 36.8 81 18 117/78 (91) 95 Room Air 06/02/17 12:05 36.8 80 18 110/74 (86) 96 Room Air 06/02/17 08:26 Room Air 06/02/17 08:00 96 Room Air 06/02/17 07:40 36.8 83 18 107/72 (84) 96 Room Air 06/02/17 00:00 Room Air 06/01/17 23:33 36.4 95 18 107/70 (82) 98 Room Air 06/01/17 20:00 Room Air Physical Exam General Appearance: + severe distress, + obese ENT: hearing grossly normal Respiratory/Chest: lungs clear, normal breath sounds, no respiratory distress Cardiovascular: regular rate, rhythm, no murmur Abdomen: normal bowel sounds, non tender, soft Extremities: no pedal edema Neurologic/Psychiatric: oriented x 3, + depressed affect Medications Current Inpatient Medications Medications (Trade) Dose Ordered Sig/Lelia Route Start Time Stop Time Status Last Admin Dose Admin Enoxaparin Sodium (Lovenox Inj) 40 mg Q24H SC 05/31/17 21:00 06/30/17 12:59 06/01/17 21:33 40 MG Acetaminophen (Tylenol Tab) 650 mg Q4H PRN PO 05/31/17 13:00 06/30/17 12:59 06/02/17 08:59 650 MG Ondansetron HCl (Zofran Inj) 4 mg Q6H PRN IV 05/31/17 13:00 06/30/17 12:59 06/02/17 12:47 4 MG Ranitidine HCl (zANTac TAB) 150 mg BID PO 05/31/17 21:00 06/30/17 20:59 06/02/17 08:57 150 MG Tramadol HCl (Ultram Tab) 50 mg Q4H PRN PO 06/01/17 12:15 07/01/17 12:14 06/02/17 06:23 50 MG Divalproex Sodium (Depakote Delay Rel Tab) 250 mg BID PO 06/02/17 22:00 07/02/17 21:59 Promethazine HCl 25 mg/Sodium Chloride 51 ml @ 204 mls/hr Q6H PRN IV 06/02/17 13:45 07/02/17 13:44 Assessment and Plan Assessment and Plan: This is 36 yo female with hx of migraines and chiari malformation s/p suboccipital craniotomy presented to the Er with complaints of fall. Fall/Dizziness DDx: arrhythmia, seizure, dehydration. Per fiance, patient has been working 70+ hrs/week and IVF seems to help when she first presented. Nutrition/hydration seem to be a likely cause. Even though patient has hx of tachycardia, her ekg looks normal, no arrhythmia noted. No symptoms of seizure noted. Headache Migraine PAUL is likely as patient has a hx of migraine and sx that she describes today point toward migraine. - Continue Tramadol, depakote, promethizine. Discharge planning: home
--- NOTE | 2017-06-02 16:28 | Progress Note ---
Subjective Date of Service: Jun 02, 2017. Subjective Pt evaluation today including: conversation w/ patient, conversation w/ family , physical exam, lab review, review of inpatient medication list Pain: headache, 9 out of 10 PO Intake: poor appetite, nausea Voiding: no voiding problems patient with worsening headache this morning, right frontal, 9 out of 10 worse with light and noise associated with nausea and dizziness consistent with migraine headache no relief with Ultram in the afternoon she seemed to feel slightly better with Solu Medrol, Phenergan , Depakote discussed getting rest, trying to eat dinner, try to discharge tomorrow Problem List Medical Problems: (1) Change in mental status Status: Acute (2) Contusion of multiple sites Status: Acute (3) Contusion of right knee Status: Acute (4) Fall Status: Acute (5) Fall Status: Acute (6) Knee pain Status: Acute (7) Syncope Status: Acute Review of Systems All Other Systems: Reviewed and Negative Medications Current Inpatient Medications Medications (Trade) Dose Ordered Sig/Lelia Route Start Time Stop Time Status Last Admin Dose Admin Enoxaparin Sodium (Lovenox Inj) 40 mg Q24H SC 05/31/17 21:00 06/30/17 12:59 06/01/17 21:33 40 MG Acetaminophen (Tylenol Tab) 650 mg Q4H PRN PO 05/31/17 13:00 06/30/17 12:59 06/02/17 08:59 650 MG Ondansetron HCl (Zofran Inj) 4 mg Q6H PRN IV 05/31/17 13:00 06/30/17 12:59 06/02/17 12:47 4 MG Ranitidine HCl (zANTac TAB) 150 mg BID PO 05/31/17 21:00 06/30/17 20:59 06/02/17 08:57 150 MG Tramadol HCl (Ultram Tab) 50 mg Q4H PRN PO 06/01/17 12:15 07/01/17 12:14 06/02/17 06:23 50 MG Divalproex Sodium (Depakote Delay Rel Tab) 250 mg BID PO 06/02/17 22:00 07/02/17 21:59 Promethazine HCl 25 mg/Sodium Chloride 51 ml @ 204 mls/hr Q6H PRN IV 06/02/17 13:45 07/02/17 13:44 Objective Vital Signs Date Time Temp Pulse Resp B/P (MAP) Pulse Ox O2 Delivery O2 Flow Rate FiO2 06/02/17 14:49 36.8 81 18 117/78 (91) 95 Room Air 06/02/17 12:05 36.8 80 18 110/74 (86) 96 Room Air 06/02/17 08:26 Room Air 06/02/17 08:00 96 Room Air 06/02/17 07:40 36.8 83 18 107/72 (84) 96 Room Air 06/02/17 00:00 Room Air 06/01/17 23:33 36.4 95 18 107/70 (82) 98 Room Air 06/01/17 20:00 Room Air Physical Exam General Appearance: no apparent distress, + obese Eyes: normal inspection, EOMI, sclerae normal Neck: supple, no adenopathy, no JVD, trachea midline Respiratory/Chest: chest non-tender, lungs clear, normal breath sounds, no respiratory distress, no accessory muscle use Cardiovascular: regular rate, rhythm, no edema, no gallop, no JVD, no murmur Abdomen: normal bowel sounds, non tender, soft, no organomegaly Extremities: normal range of motion, non-tender, normal inspection, no pedal edema, no calf tenderness 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, no motor/sensory deficits, alert, normal mood/affect, oriented x 3 Skin: normal color, warm/dry, no rash Lymphatic: no adenopathy Assessment and Plan Pt is a 36 yo female with hx of acute migraines, Chiari malformation s/p occipital craniotomy who presents to ER with fall [employer] and somnolence and headache - Unwitnessed fall at home: no obvious injuries, c/o headache but otherwise okay no obvious etiology at this point CT head, CTA chest, CXR all normal no signs of infection, normal renal function no signs of medication overdose no seizure activity no arrhythmia on monitor, enzymes normal, TSH normal likely combination of dehydration, lack of sleep, overworking - Tachycardia: resolved with IV fluids - Migraine headaches: now with what appears to be migraine headache, severe 9 out of 10 pain, laying in bed with eyes closed all day no relief with Ultram that was prescribed outpatient will try Phenergan, Depakote, Solu Medrol - s/p craniotomy for Chiari malformation: no further vertigo had MRI in December 2016 that was normal after her surgery plan: treat the migraine, increase activity and oral intake, try to d/c home tomorrow Discharge planning: home
[2017-06-02] MEDS: ENOXAPARIN 40 MG/0.4 ML SYR SC SCH (20:47)
[2017-06-02] MEDS: DIVALPROEX SODIUM 250 MG DELAY REL TAB PO SCH (21:43)
[2017-06-03 01:24] VITALS: BP 120/64; PULSE 65; TEMP 36.9; O2SAT 96
[2017-06-03] MEDS: DIVALPROEX SODIUM 250 MG DELAY REL TAB PO SCH (07:14)
[2017-06-03] MEDS: RANITIDINE HCL 150 MG TAB PO SCH (07:14)
[2017-06-03] MEDS: TRAMADOL HCL 50 MG TAB PO PRN (07:14)
[2017-06-03 07:19] LABS: HEMATOCRIT 37.6 % (37-47); MEAN CELL VOLUME 84.9 fL (80-100); MEAN CORPUSCULAR HEMOGLOBIN 27.8 pg (25-34); MEAN CORPUSCULAR HGB CONC 32.7 g/dl (32-36); MEAN PLATELET VOLUME 10.8 fL (7.4-10.4); PLATELET COUNT 226 K/uL (130-400); RED BLOOD COUNT 4.43 M/uL (4.2-5.4); WHITE BLOOD COUNT 10.43 K/uL (4.8-10.8)
[2017-06-03 07:31] VITALS: BP 96/61; PULSE 77; TEMP 36.8; O2SAT 97
[2017-06-03 07:36] LABS: CREATININE 0.89 mg/dl (0.60-1.20)
[2017-06-03] MEDS ORDERED: INFLUENZA VIRUS QUAD VACCINE 0.5 ML SYR IM. ONE (10:30)
[2017-06-03] MEDS ORDERED: INFLUENZA ADMINISTRATION CHARGE ONE (10:30)
[2017-06-03] MEDS ORDERED: MECLIZINE HCL 25 MG TAB PO ONE (12:15)
--- NOTE | 2017-06-03 14:55 | Medical Student: [facility] ---
Med Student Progress Note Date of Service Jun 03, 2017. Subjective Pt evaluation today including: conversation w/ patient, physical exam, chart review, lab review, review of studies, review of inpatient medication list Pain: headache 7/10 PO Intake: decreased Voiding: no voiding problems This is 36 yo female with hx of migraines and chiari malformation s/p suboccipital craniotomy presented to the Er with complaints of fall. Today, she still feels weak, tired, severe headache (7/10) localized to the front and back. Light and sound bother her. Also dizziness and nausea. She vomited last night after dinner and this morning after having 1 dose of Ultram. Denies CP, SOB, change in BM or urination. Patient seems to be more alert and more responsive to questions today. Review of Systems Constitutional: + weakness, + fatigue, No fever Respiratory: No shortness of breath, No dyspnea on exertion Cardiac: No chest pain Abdomen: + nausea, + vomiting, No pain Female : No dysuria Objective Vital Signs Date Time Temp Pulse Resp B/P (MAP) Pulse Ox O2 Delivery O2 Flow Rate FiO2 06/03/17 08:13 Room Air 06/03/17 07:31 36.8 77 18 96/61 (73) 97 Room Air 06/03/17 01:24 36.9 65 18 120/64 (82) 96 Room Air 06/03/17 00:45 Room Air 06/02/17 16:00 Room Air 06/02/17 14:49 36.8 81 18 117/78 (91) 95 Room Air Physical Exam General Appearance: + moderate distress ENT: hearing grossly normal Respiratory/Chest: lungs clear, normal breath sounds, no respiratory distress Cardiovascular: regular rate, rhythm, no murmur Abdomen: normal bowel sounds, soft Extremities: no pedal edema Laboratory Results Last 24 Hours Test 06/03/17 06:50 White Blood Count 10.43 K/uL Red Blood Count 4.43 M/uL Hemoglobin 12.3 g/dL Hematocrit 37.6 % Mean Corpuscular Volume 84.9 fL Mean Corpuscular Hemoglobin 27.8 pg Mean Corpuscular Hemoglobin Concent 32.7 g/dl RDW Standard Deviation 40.9 fL RDW Coefficient of Variation 13.4 % Platelet Count 226 K/uL Mean Platelet Volume 10.8 fL Creatinine 0.89 mg/dl Est Creatinine Clear Calc Drug Dose 100.7 ml/min Estimated GFR () 97.3 Estimated GFR (Non- 84.0 Medications Current Inpatient Medications Medications (Trade) Dose Ordered Sig/Lelia Route Start Time Stop Time Status Last Admin Dose Admin Enoxaparin Sodium (Lovenox Inj) 40 mg Q24H SC 05/31/17 21:00 06/30/17 12:59 06/02/17 20:47 40 MG Acetaminophen (Tylenol Tab) 650 mg Q4H PRN PO 05/31/17 13:00 06/30/17 12:59 06/02/17 08:59 650 MG Ondansetron HCl (Zofran Inj) 4 mg Q6H PRN IV 05/31/17 13:00 06/30/17 12:59 06/02/17 12:47 4 MG Ranitidine HCl (zANTac TAB) 150 mg BID PO 05/31/17 21:00 06/30/17 20:59 06/03/17 07:14 150 MG Tramadol HCl (Ultram Tab) 50 mg Q4H PRN PO 06/01/17 12:15 07/01/17 12:14 06/03/17 07:14 50 MG Divalproex Sodium (Depakote Delay Rel Tab) 250 mg BID PO 06/02/17 22:00 07/02/17 21:59 06/03/17 07:14 250 MG Promethazine HCl 25 mg/Sodium Chloride 51 ml @ 204 mls/hr Q6H PRN IV 06/02/17 13:45 07/02/17 13:44 06/02/17 20:56 204 MLS/HR Assessment and Plan Assessment and Plan: This is 36 yo female with hx of migraines and chiari malformation s/p suboccipital craniotomy presented to the Er with complaints of fall. Fall/Dizziness DDx: arrhythmia, seizure, dehydration. Per fiance, patient has been working 70+ hrs/week and IVF seems to help when she first presented. Nutrition/hydration seem to be a likely cause. Even though patient has hx of tachycardia, her ekg looks normal, no arrhythmia noted. No symptoms of seizure noted. Headache Migraine PAUL is likely as patient has a hx of migraine and sx that she describes today point toward migraine. - Continue Tramadol, depakote, promethizine - Add meclizine to help with nausea and dizziness Discharge planning: home
[2017-06-03 15:07] VITALS: BP 122/75; PULSE 95; TEMP 36.6; O2SAT 97
[2017-06-03] MEDS ORDERED: NURSING VERBAL MED ORDER ONE (15:15)
[2017-06-03] MEDS ORDERED: ANT25 PO (15:35)
[2017-06-03] MEDS ORDERED: ONDA4TAB10 SL (15:35)
--- NOTE | 2017-06-03 15:42 | Discharge Instructions ---
Discharge Instructions Date of Service Jun 03, 2017. Admission Reason for Admission: Fall, Tachycardia Discharge Discharge Diagnosis / Problem: Migraine headache, vertigo, nausea and vomiting Discharge Goals Goal(s): Decrease discomfort, Improve function Activity Recommendations Activity Limitations: per Instructions/Follow-up section Lifting Limitations: none Exercise/Sports Limitations: as tolerated May Resume Sexual Activity: when tolerated Shower/Bathe: no limitations Driving or Machine Use: no limitations . Instructions / Follow-Up Instructions / Follow-Up Medications: - ULTRAM: use as directed for headache, since it may cause you nausea/vomiting, try taking a Zofran prior to taking Ultram - MECLIZINE: for three days, take scheduled three times a day to help treat dizziness, after three days just take as needed - ZOFRAN: use under the tongue for nausea, only use as needed In summary, you had extensive testing that did not reveal a cause for your fall or tachycardia. I suspect it was a combination of migraine headache, dehydration, and exhaustion from work and lack of sleep. Please get plenty of rest the next few days, no work until Thursday 06/07 when you are at work, I recommend that you get 8 hours in a row to sleep to help prevent sleep deprivation which can trigger migraine headaches Migraine: it is good idea for you to keep a headache journal, write down when you woke up, how much sleep, how many hours you worked, foods you ate, any nicotine or caffeine ingestion. It is important to try to identify triggers for the migraines. use the Ultram, Zofran and Meclizine as prescribed please call the neurology office for a close follow up with Francine Case in 1-2 weeks Current Hospital Diet Patient's current hospital diet: Regular Diet Discharge Diet Recommended Diet: Regular Diet Pending Studies Studies pending at discharge: no Work Instructions Return To Work: 3 days (may return on Thursday 06/07) Additional Instructions: needs 8 hours off in a 24 hour period for adequate sleep, needs to be able to take the sleep shifts Medical Emergencies . Who to Call and When: Medical Emergencies: If at any time you feel your situation is an emergency, please call 911 immediately. . Non-Emergent Contact Non-Emergency issues call your: Primary Care Provider, Neurologist Call Non-Emergent contact if: you have any medication questions . . "Provider Documentation" section prepared by Luca Hood. . VTE Core Measure Inpt VTE Proph given/why not?: Enoxaparin (Lovenox)SQ [place] Drug Monitoring Program Search Results: no issues identified
[2017-06-03 16:01] VITALS: BP 122/75; PULSE 95; TEMP 36.6; O2SAT 97
--- NOTE | 2017-06-14 08:47 | Discharge Summary ---
Discharge Summary Date of Service Jun 03, 2017. Discharge Summary Admission Date: May 31, 2017 at 12:49 Discharge Date: Jun 03, 2017 Discharge Disposition: Home Principal Diagnosis: Migraine headache Problems/Secondary Diagnoses: Fall Tachycardia H/o depression with psychotic features h/o Chiari malformation, s/p occipital craniotomy Immunizations: Have You Had Influenza Vaccine: No Influenza Vaccine Date: Jul 12, 2008 History of Tetanus Vaccine?: states up to date Tetanus Immunization Date: Sep 13, 2007 History of Pneumococcal: No History of Hepatitis B Vaccine: Yes Hepatitis Immunization Date: Oct 14, 2007 Procedures: none Consultations: none Medication Reconciliation New Medications: Meclizine HCl (Meclizine HCl) 25 Mg Tab 25 MG PO Q8 PRN for Dizziness or Vertigo, #30 TABS 1 Refill Ondasetron Odt (Zofran Odt) 4 Mg Tab 4 MG SL Q6H PRN for Nausea or Vomiting, #10 TAB Continued Medications: Ranitidine (Zantac) 150 Mg Tab 150 MG PO BID, TAB Tramadol (Ultram) 50 Mg Tab 50 MG PO Q4H PRN for Pain, TAB Discharge Exam Patient was seen in the morning, c/o 7 out of 10 headache. Was able to eat some breakfast and some lunch. After lunch she vomited and c/o dizziness. The RN was not convinced that the patient actually vomited. She showed her what looked like iced tea and broken up saltines in a basin. The patient said she was able to drink all day without problem. She received a dose of Meclizine to see if the dizziness would improved. Visited with patient later in the day, her dizziness had resolved but she still had the headache. No further episodes of vomiting. Discussed plan for discharge Review of Systems: Constitutional: + weakness, + fatigue, No fever, No chills, No sweats, No weight loss Eyes: No worsening of vision, No eye pain, No redness, No discharge, No diplopia, No problem reported ENT: No hearing loss, No unusual epistaxis, No nasal symptoms, No sore throat, No tinnitus, No dental problems, No trouble swallowing, No problem reported Respiratory: No cough, No sputum, No wheezing, No shortness of breath, No dyspnea on exertion, No dyspnea at rest, No hemoptysis, No problem reported Cardiovascular: No chest pain, No orthopnea, No PND, No edema, No claudication, No palpitations, No problem reported Abdomen: No pain, No nausea, No vomiting, No diarrhea, No constipation, No GI bleeding, No problem reported Musculoskeletal: No joint pain, No muscle pain, No swelling, No calf pain, No problem reported Genitourinary - Female: No dysuria, No urinary frequency, No urinary urgency , No urinary incontinence Neurologic: + weakness, + vertigo, No memory loss, No paralysis, No numbness /tingling, No balance problems Psychiatric: + depression symptoms, No anhedonism, No anxiety, No insomnia Endocrine: No fatigue, No excessive thirst, No excessive urination, No problem reported Hematologic / Lymphatic: No abnormal bleeding/bruising, No clotting problems , No swollen lymph nodes, No night sweats, No problem reported Integumentary: No rash, No itch, No new/changing skin lesions, No color change, No bleeding, No problem reported Physical Exam: General Appearance: WD/WN, no apparent distress Eyes: normal inspection, EOMI, sclerae normal ENT: normal ENT inspection, hearing grossly normal, pharynx normal Neck: supple, no adenopathy, no JVD, trachea midline Respiratory/Chest: chest non-tender, lungs clear, normal breath sounds, no respiratory distress, no accessory muscle use Cardiovascular: regular rate, rhythm, no edema, no gallop, no JVD, no murmur , normal peripheral pulses Abdomen / GI: normal bowel sounds, non tender, soft, no organomegaly Extremities: normal inspection, no calf tenderness, normal capillary refill , no pedal edema, normal range of motion, pelvis stable 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, alert, normal reflexes, oriented x 3, + motor weakness, + depressed affect Skin: normal color, warm/dry, no rash Lymphatic: no adenopathy Hospital Course Pt is a 36 yo female with hx of acute migraines, Chiari malformation s/p occipital craniotomy 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 - Unwitnessed fall at home: no obvious injuries, c/o headache but otherwise okay no obvious etiology at this point CT head, CTA chest, CXR all normal no signs of infection, normal renal function no signs of medication overdose no seizure activity no arrhythmia on monitor, enzymes normal, TSH normal likely combination of dehydration, lack of sleep, overworking - Tachycardia: resolved with IV fluids - Migraine headaches: now with what appears to be migraine headache, severe 9 out of 10 pain, laying in bed with eyes closed all day no relief with Ultram that was prescribed outpatient improved with Depakote, Phenergan and Solu Medrol with increased vertigo and nausea on 05/03 treated with Meclizine and improved patient felt well enough to go home - s/p craniotomy for Chiari malformation: no further vertigo had MRI in December 2016 that was normal after her surgery plan: d/c to home, provided with note that patient requires adequate sleep with her work scheduled to try to prevent further migraine headaches Total Time Spent: Greater than 30 minutes This includes examination of the patient, discharge planning, medication reconciliation, and communication with other providers. Discharge Instructions Please refer to the electronic Patient Visit Report (Discharge Instructions) for additional information. Follow-Up Dr. Fink one week Additional Copies To Guillermo Fink M.D.
== END 2017-06-03 16:30 | disposition home or self-care (01) | DRG 103 ==
LOC: C.EDB 09:17 → C.2T 12:49 → ENRESERV 13:10 → C.4E 06-01 13:05
PROVIDERS: ADMIT Hospitalist; ATTEND Internal Medicine
DX: G43.909 Migraine, unspecified, not intractable, without status migrainosus (principal); Z68.41 Body mass index [BMI] 40.0-44.9, adult; R00.0 Tachycardia, unspecified; E66.9 Obesity, unspecified; Z23 Encounter for immunization; S80.01XA Contusion of right knee, initial encounter; W19.XXXA Unspecified fall, initial encounter; X58.XXXA Exposure to other specified factors, initial encounter; R42 Dizziness and giddiness; R11.2 Nausea with vomiting, unspecified; Z79.899 Other long term (current) drug therapy; Z79.891 Long term (current) use of opiate analgesic; Z98.890 Other specified postprocedural states; Z87.798 Personal history of other (corrected) congenital malformations

== ENCOUNTER 2017-06-27 10:32 | Emergency (ER) | payer OTHER ==
[~2017-06-27] VITALS: Ht 157.5 cm; Wt 105.0 kg
[~2017-06-27 10:32] MED LIST changes: -GADAVIST IV PRN; -PLEXUS BIOCLEANSE PO; -PLEXUS PROBIO PO
[2017-06-27 10:37] VITALS: TEMP 37.1; Ht 157.5 cm; Wt 105.0 kg
[2017-06-27 11:09] VITALS: O2SAT 98
[2017-06-27] MEDS ORDERED: SODIUM CHLORIDE 0.9% 1000ML 1,000 ML IV STA (11:16)
--- NOTE | 2017-06-27 11:23 | EMERGENCY ROOM VISIT NOTE ---
History Report prepared by James: Renzo Murphy Under the Supervision of: Dr. Sabrina Story M.D. First contact with patient: 10:50 Chief Complaint: SYNCOPE Stated Complaint: SYNCOPE, ALTERED MENTAL STATUS History of Present Illness The patient is a 36 year old female who presents to the Emergency Room with complaints of an episode of syncope beginning this morning. Per , the patient had complaints of dizziness and a head ache last night following work at [employer]. Following work, she appeared confused and took 1-2 Ibuprofen tablets and went to sleep. He notes that the patient woke up this morning, fainted and fell face first onto the floor when she went to the floor. He notes that following her episode this morning, it took the patient a few seconds to become responsive. She notes symptoms of back pain, and headache, fatigue. The patient had a previous ED visit in May for an exhaustion induced migraine. Source of History: spouse/significant other History Limited By: AMS Onset: this morning Position: other (gloabal) Timing: other (an episode) Associated Symptoms: + headache, + back pain, + fatigue Note: the patient complains of dizziness Review of Systems See HPI for pertinent positives & negatives. A total of 10 systems reviewed and were otherwise negative. Past Medical & Surgical Medical Problems: (1) Altered mental status (2) Ankle sprain (3) Cellulitis (4) Dizziness (5) Encounter for wound re-check (6) Endometriosis (7) Headache (8) Headache (9) Hx of ectopic (10) Infected insect bite of abdominal wall (11) Intractable headache (12) Lyme disease (13) Nausea (14) Pain, dental (15) Paresthesia of left leg (16) Right knee pain (17) Sepsis (18) Severe headache (19) Tachycardia (20) Unresponsive episode (21) UTI (urinary tract infection) (22) Vaginal bleeding in patient at less than 20 weeks gestation (23) Vertigo (24) Weakness Surgical Problems: (1) Chiari malformation Family History FH: mental illness Heart disease Social History Smoking Status: Never Smoker Alcohol Use: none Drug Use: none Marital Status: , other Housing Status: lives with family Occupation Status: employed Current/Historical Medications Scheduled Ranitidine (Zantac), 150 MG PO BID [Plexus Biocleanse], 1 DOSE PO UD [Plexus Probio], 1 DOSE PO UD Scheduled PRN Meclizine HCl (Meclizine HCl), 25 MG PO Q8 PRN for Dizziness or Vertigo Ondasetron Odt (Zofran Odt), 4 MG SL Q6H PRN for Nausea or Vomiting Tramadol (Ultram), 50 MG PO Q4H PRN for Pain Allergies Coded Allergies: Albuterol (Verified Allergy, Unknown, 06/27/17) Fish Allergy (Verified Allergy, Unknown, SEAFOOD ALLERGY, 06/27/17) Physical Exam Vital Signs Date Time Temp Pulse Resp B/P (MAP) Pulse Ox O2 Delivery O2 Flow Rate FiO2 06/27/17 14:30 77 18 150/60 99 06/27/17 13:16 97 142/77 99 Room Air 06/27/17 12:40 100 20 148/91 99 Room Air 06/27/17 11:35 85 149/87 101 152/91 100 148/91 06/27/17 11:09 98 Room Air 06/27/17 11:05 78 06/27/17 10:37 37.1 87 16 138/84 98 Room Air Physical Exam Vital signs reviewed. General: Well-appearing 36-year-old female, sleeping and in no distress. HEENT: No scleral icterus, PERRLA, neck supple. Atraumatic. Cardiovascular: Regular rate and rhythm, no extra sounds. Pulmonary: Clear to auscultation bilaterally, normal work of breathing. Abdomen: Soft, nontender, nondistended, positive bowel sounds. Musculoskeletal: Atraumatic, no peripheral edema. No meningeal signs, nontender cervical, thoracic, and lumbar spines. Neurologic: Patient is somnolent but arousable, full strength in all 4 extremities. Cranial nerves 2 through 12 grossly intact. Skin: Warm, dry, no rash Medical Decision & Procedures ER Provider Diagnostic Interpretation: Radiology results as stated below per my review and radiologist interpretation: CHEST ONE VIEW PORTABLE HISTORY: Altered mental status. Syncope. COMPARISON: Chest 05/31/2017. FINDINGS: No pleural effusions. No pneumothorax. Hazy appearance to the left lung base is likely due to overlapping soft tissue. This remains unchanged. The heart remains borderline enlarged. This could be accentuated by the low lung volumes. IMPRESSION: No significant change compared to the prior study. No acute process. Electronically signed by: Yossi Jasso M.D. 06/27/2017 11:[address]AST CT DOSE: 537.48 mGy.cm HISTORY: fall, headache, TECHNIQUE: Multiaxial CT images of the head were performed without the use of intravenous contrast. Automated exposure control was utilized for this study. A dose lowering technique was utilized adhering to the principles of ALARA. Comparison: Head CT 05/31/2017. Findings: The paranasal sinuses and mastoid air cells are clear. The calvarium and skull base are intact. The ventricles and sulci are within normal limits. There is no mass, hematoma, midline shift, or acute infarct. Prior suboccipital craniectomy for the patient's Chiari 1 malformation. Impression: No significant change compared to the prior study. No acute intracranial abnormality. Electronically signed by: Yossi Jasso M.D. 06/27/2017 12:17 PM Laboratory Results 06/27/17 10:55 Red Blood Count 4.71, Mean Corpuscular Volume 85.6, Mean Corpuscular Hemoglobin 27.0, Mean Corpuscular Hemoglobin Concent 31.5, Mean Platelet Volume 10.3, Neutrophils (%) (Auto) 73.8, Lymphocytes (%) (Auto) 19.3, Monocytes (%) (Auto) 4.8, Eosinophils (%) (Auto) 1.7, Basophils (%) (Auto) 0.2, Neutrophils # (Auto) 3.98, Lymphocytes # (Auto) 1.04, Monocytes # (Auto) 0.26, Eosinophils # (Auto) 0.09, Basophils # (Auto) 0.01 06/27/17 10:55 Test 06/27/17 10:55 06/27/17 11:21 06/27/17 11:24 06/27/17 11:27 White Blood Count 5.39 K/uL (4.8-10.8) Red Blood Count 4.71 M/uL (4.2-5.4) Hemoglobin 12.7 g/dL (12.0-16.0) Hematocrit 40.3 % (37-47) Mean Corpuscular Volume 85.6 fL (80-100) Mean Corpuscular Hemoglobin 27.0 pg (25-34) Mean Corpuscular Hemoglobin Concent 31.5 g/dl (32-36) Platelet Count 253 K/uL (130-400) Mean Platelet Volume 10.3 fL (7.4-10.4) Neutrophils (%) (Auto) 73.8 % Lymphocytes (%) (Auto) 19.3 % Monocytes (%) (Auto) 4.8 % Eosinophils (%) (Auto) 1.7 % Basophils (%) (Auto) 0.2 % Neutrophils # (Auto) 3.98 K/uL (1.4-6.5) Lymphocytes # (Auto) 1.04 K/uL (1.2-3.4) Monocytes # (Auto) 0.26 K/uL (0.11-0.59) Eosinophils # (Auto) 0.09 K/uL (0-0.5) Basophils # (Auto) 0.01 K/uL (0-0.2) RDW Standard Deviation 42.8 fL (36.4-46.3) RDW Coefficient of Variation 13.7 % (11.5-14.5) Immature Granulocyte % (Auto) 0.2 % Immature Granulocyte # (Auto) 0.01 K/uL (0.00-0.02) Anion Gap 4.0 mmol/L (3-11) Est Creatinine Clear Calc Drug Dose 90.2 ml/min Estimated GFR () 85.6 Estimated GFR (Non- 73.8 BUN/Creatinine Ratio 7.5 (10-20) Calcium Level 8.5 mg/dl (8.5-10.1) Magnesium Level 2.4 mg/dl (1.8-2.4) Total Bilirubin 0.5 mg/dl (0.2-1) Direct Bilirubin < 0.1 mg/dl (0-0.2) Aspartate Amino Transf (AST/SGOT) 17 U/L (15-37) Alanine Aminotransferase (ALT/SGPT) 24 U/L (12-78) Alkaline Phosphatase 90 U/L (45-117) Total Protein 6.9 gm/dl (6.4-8.2) Albumin 3.6 gm/dl (3.4-5.0) Bedside Lactic Acid Venous 1.04 mmol/L (0.90-1.70) Bedside D-Dimer 249 ng/mlFEU (0-450) Bedside Troponin I < 0.030 ng/ml (0-0.045) Salicylates Level < 1.7 mg/dl (2.8-20) Acetaminophen Level < 2 ug/ml (10-30) Ethyl Alcohol mg/dL < 3.0 mg/dl (0-3) Test 06/27/17 12:15 Urine Color YELLOW Urine Appearance CLEAR (CLEAR) Urine pH 8.5 (4.5-7.5) Urine Specific [place] 1.008 (1.000-1.030) Urine Protein NEG (NEG) Urine Glucose (UA) NEG (NEG) Urine Ketones NEG (NEG) Urine Occult Blood NEG (NEG) Urine Nitrite NEG (NEG) Urine Bilirubin NEG (NEG) Urine Urobilinogen NEG (NEG) Urine Leukocyte Esterase TRACE (NEG) Urine WBC (Auto) 1-5 /hpf (0-5) Urine RBC (Auto) 0-4 /hpf (0-4) Urine Hyaline Casts (Auto) 0 /lpf (0-5) Urine Epithelial Cells (Auto) 20-30 /lpf (0-5) Urine Bacteria (Auto) NEG (NEG) Urine Opiates Screen NEG (NEG) Urine Methadone, Qualitative NEG (NEG) Urine Barbiturates NEG (NEG) Urine Phencyclidine (PCP) Level NEG (NEG) Ur Amphetamine/Methamphetamine NEG (NEG) MDMA (Ecstasy) Screen NEG (NEG) Urine Benzodiazepines Screen NEG (NEG) Urine Cocaine Metabolite NEG (NEG) Urine Marijuana (THC) NEG (NEG) Laboratory results per my review. Medications Administered Medications (Trade) Dose Ordered Sig/Lelia Route Start Time Stop Time Status Last Admin Dose Admin Sodium Chloride 1,000 ml @ 999 mls/hr Q1H1M STAT IV 06/27/17 11:16 06/27/17 12:16 DC 06/27/17 11:16 999 MLS/HR ECG Indication: altered mental status Rhythm: normal sinus Findings: no acute ischemic change, no ectopy ED Course 1112: Past medical records reviewed. The patient was evaluated in room C4. A complete history and physical examination was performed. 1116: Sodium Chloride 1000 ml @ 999 mls/hr IV 1424: Upon reevaluation, the patient appeared to have improvement of her symptoms. She is awake and functional. I discussed findings with her. She verbalized agreement of the treatment plan. The patient was discharged home. Medical Decision Differential diagnosis: Etiologies such as benign positional vertigo, dehydration, hypovolemia, anemia, tumor, infection, hypoglycemia, electrolyte abnormalities, cardiac sources, intracerebral event, toxicologic, neurologic, as well as others were entertained. This patient was evaluated and appeared to be in no significant distress. IV access was obtained and laboratory work was drawn. The patient was placed on the groundwater monitoring technician. She was hydrated with normal saline solution. CT scan of the head was performed and is negative for acute intracranial abnormality. Laboratory work is unrevealing. The patient is mildly orthostatic by heart rate. The patient is on this several times in the last few years. She had an admission last month for similar findings. It was determined that the patient has headaches and weakness related to sleep deprivation. Her reiterates that she had a long work weekend. There is no sign of trauma on exam. Patient is able to follow direction with significant encouragement. She did ambulate to the restroom and ate a turkey sandwich. I suspect much of this is psychosomatic in nature. She was advised to follow-up with her PCP and to return to the ER for worsening of symptoms or any medical concerns. Medication Reconcilliation Current Medication List: was personally reviewed by me Blood Pressure Screening Patient's blood pressure: Elevated blood pressure Blood pressure disposition: Referred to PCP Impression Primary Impression: Syncope Additional Impression: Sleep deprivation Scribe Attestation The scribe's documentation has been prepared under my direction and personally reviewed by me in its entirety. I confirm that the note above accurately reflects all work, treatment, procedures, and medical decision making performed by me. Departure Information Dispostion Home / Self-Care Referrals Guillermo Fink M.D. (PCP) Forms HOME CARE DOCUMENTATION FORM, IMPORTANT VISIT INFORMATION Patient Instructions My [facility] [place] [employer] Additional Instructions Please drink plenty of clear fluids. Sleep on a regular schedule for 6-8 hour intervals. Avoid excessive caffeine and alcohol. Follow-up with your physician this week for reevaluation. Return to the ER for worsening of symptoms or any medical concerns. Problem Qualifiers
[2017-06-27 11:28] LABS: BASO % 0.2 %; BASO ABS # 0.01 K/uL (0-0.2); COMPLETE YES; EOS % 1.7 %; HEMATOCRIT 40.3 % (37-47); IG% 0.2 %; LYMPH % 19.3 %; LYMPH ABS # 1.04 K/uL (1.2-3.4); MEAN CELL VOLUME 85.6 fL (80-100); MEAN CORPUSCULAR HGB CONC 31.5 g/dl (32-36); MEAN PLATELET VOLUME 10.3 fL (7.4-10.4); MONO % 4.8 %; NEUT % 73.8 %; PLATELET COUNT 253 K/uL (130-400); RED BLOOD COUNT 4.71 M/uL (4.2-5.4); WHITE BLOOD COUNT 5.39 K/uL (4.8-10.8)
[2017-06-27 11:35] LABS: ALT/SGPT 24 U/L (12-78); BLOOD UREA NITROGEN 7 mg/dl (7-18); BUN/CREATININE RATIO 7.5 (10-20); CALCIUM 8.5 mg/dl (8.5-10.1); CARBON DIOXIDE 28 mmol/L (21-32); CHLORIDE 108 mmol/L (98-107); CREATININE 0.99 mg/dl (0.60-1.20); GLUCOSE 104 mg/dl (70-99); MAGNESIUM 2.4 mg/dl (1.8-2.4); POTASSIUM 3.9 mmol/L (3.5-5.1); SODIUM 140 mmol/L (136-145)
[2017-06-27 11:38] LABS: ALKALINE PHOSPHATASE 90 U/L (45-117); AST/SGOT 17 U/L (15-37)
[2017-06-27 11:41] LABS: POINT OF CARE TROPONIN I < 0.030 ng/ml (0-0.045)
--- NOTE | 2017-06-27 11:43 | DIAGNOSTIC IMAGING REPORT ---
CHEST ONE VIEW PORTABLE HISTORY: Altered mental status. Syncope. COMPARISON: Chest 05/31/2017. FINDINGS: No pleural effusions. No pneumothorax. Hazy appearance to the left lung base is likely due to overlapping soft tissue. This remains unchanged. The heart remains borderline enlarged. This could be accentuated by the low lung volumes. IMPRESSION: No significant change compared to the prior study. No acute process. Electronically signed by: Yossi Jasso M.D. 06/27/2017 11:41 AM Dictated Date/Time: 06/27/2017 11:40 AM
[2017-06-27] MEDS ORDERED: PLEXUS PROBIO PO (11:48)
[2017-06-27] MEDS ORDERED: PLEXUS BIOCLEANSE PO (11:48)
[2017-06-27 12:04] LABS: ACETAMINOPHEN < 2 ug/ml (10-30)
--- NOTE | 2017-06-27 12:18 | DIAGNOSTIC IMAGING REPORT ---
HEAD CT NONCONTRAST CT DOSE: 537.48 mGy.cm HISTORY: fall, headache, TECHNIQUE: Multiaxial CT images of the head were performed without the use of intravenous contrast. Automated exposure control was utilized for this study. A dose lowering technique was utilized adhering to the principles of ALARA. Comparison: Head CT 05/31/2017. Findings: The paranasal sinuses and mastoid air cells are clear. The calvarium and skull base are intact. The ventricles and sulci are within normal limits. There is no mass, hematoma, midline shift, or acute infarct. Prior suboccipital craniectomy for the patient's Chiari 1 malformation. Impression: No significant change compared to the prior study. No acute intracranial abnormality. Electronically signed by: Yossi Jasso M.D. 06/27/2017 12:17 PM Dictated Date/Time: 06/27/2017 12:15 PM
[2017-06-27 12:39] LABS: URINE APPEARANCE CLEAR (CLEAR); URINE BILIRUBIN NEG (NEG); URINE COLOR YELLOW; URINE EPITHELIAL CELL AUTO 20-30 /lpf (0-5); URINE NITRITE NEG (NEG); URINE PH 8.5 (4.5-7.5); URINE SPECIFIC GRAVITY 1.008 (1.000-1.030); UROBILINOGEN NEG (NEG); ZZUR CULT IF INDIC CLEAN CATCH NO
[2017-06-27 12:40] LABS: MANUAL MICROSCOPIC REQUIRED? NO; REVIEW REQ? NO
[2017-06-27 12:56] LABS: BENZODIAZEPINE, URINE NEG (NEG); COCAINE,URINE NEG (NEG); PHENCYCLIDINE, URINE NEG (NEG)
[2017-06-27 14:30] VITALS: BP 150/60; PULSE 77; O2SAT 99
== END 2017-06-27 14:39 | disposition home or self-care (01) ==
LOC: C.EDB 10:34 → C.EDC 14:39
DX: R55 Syncope and collapse (principal); Z72.820 Sleep deprivation; N80.9 Endometriosis, unspecified; A69.20 Lyme disease, unspecified; Q07.00 Arnold-Chiari syndrome without spina bifida or hydrocephalus; Z81.8 Family history of other mental and behavioral disorders

== ENCOUNTER → 2017-07-28 | Outpatient (CLI) | payer OTHER ==
[~2017-07-28] MED LIST changes: +PLEXUS BIOCLEANSE PO; +PLEXUS PROBIO PO
--- NOTE | 2017-07-28 10:09 | DIAGNOSTIC IMAGING REPORT ---
RIGHT LATERAL CHEST WALL/AXILLARY ULTRASOUND CLINICAL HISTORY: R22.30 right chest wall/axillary mass COMPARISON STUDY: No previous studies for comparison. FINDINGS: In the right anterior chest wall/medial axillary region, there is an ill-defined 16 mm hyperechoic focus. This is subjacent to a visible bruise. While nonspecific this likely represents an area of fat necrosis. Clinical follow-up is advocated. IMPRESSION: Ill-defined 16 mm hyperechoic focus corresponding to the palpable abnormality. While nonspecific, this likely represents an area of fat necrosis. Clinical follow-up is recommended, given the nonspecificity of the ultrasound finding.. Electronically signed by: Andre Weeks M.D. 07/28/2017 10:07 AM Dictated Date/Time: 07/28/2017 10:05 AM
== END | disposition home or self-care (01) ==
LOC: C.ULTR 09:40
PROVIDERS: ATTEND Internal Medicine
DX: R22.30 Localized swelling, mass and lump, unspecified upper limb (principal)

== ENCOUNTER → 2017-08-10 | Outpatient (CLI) | payer OTHER ==
[2017-08-10 13:10] LABS: BASO % 0.2 %; BASO ABS # 0.02 K/uL (0-0.2); COMPLETE YES; EOS % 2.6 %; HEMATOCRIT 39.5 % (37-47); IG% 0.1 %; LYMPH % 19.5 %; LYMPH ABS # 1.59 K/uL (1.2-3.4); MEAN CELL VOLUME 85.3 fL (80-100); MEAN CORPUSCULAR HEMOGLOBIN 28.9 pg (25-34); MEAN CORPUSCULAR HGB CONC 33.9 g/dl (32-36); MEAN PLATELET VOLUME 11.7 fL (7.4-10.4); MONO % 5.3 %; NEUT % 72.3 %; PLATELET COUNT 195 K/uL (130-400); RED BLOOD COUNT 4.63 M/uL (4.2-5.4); WHITE BLOOD COUNT 8.14 K/uL (4.8-10.8)
[2017-08-10 13:43] LABS: ALT/SGPT 18 U/L (12-78); BLOOD UREA NITROGEN 10 mg/dl (7-18); BUN/CREATININE RATIO 9.9 (10-20); CALCIUM 9.1 mg/dl (8.5-10.1); CARBON DIOXIDE 21 mmol/L (21-32); CHLORIDE 109 mmol/L (98-107); CREATININE 1.01 mg/dl (0.60-1.20); GLUCOSE 92 mg/dl (70-99); POTASSIUM 3.4 mmol/L (3.5-5.1); SODIUM 137 mmol/L (136-145)
[2017-08-10 13:54] LABS: ALKALINE PHOSPHATASE 90 U/L (45-117); AST/SGOT 9 U/L (15-37)
== END | disposition home or self-care (01) ==
LOC: C.LAB 11:56
PROVIDERS: ATTEND Physician Assistant
DX: G43.909 Migraine, unspecified, not intractable, without status migrainosus (principal)

== ENCOUNTER → 2017-08-27 | Day surgery (SDC) | payer OTHER ==
[2017-08-23 10:38] VITALS: Ht 157.5 cm; Wt 106.4 kg
--- NOTE | 2017-08-25 09:04 | PAT Medication Instructions ---
Service Date Aug 25, 2017. Current Home Medication List Ranitidine (Zantac), 150 MG PO BID Sumatriptan Succinate (Imitrex), 50 MG PO PRN PRN for Migraine Topiramate (Topamax ), 25 MG PO BID Medication Instructions For Your Scheduled Surgery - Take the following medications the morning of surgery with a sip of water: Ranitidine (Zantac), 150 MG PO BID Sumatriptan Succinate (Imitrex), 50 MG PO PRN PRN for Migraine (if needed) Topiramate (Topamax ), 25 MG PO BID - Take the following medications as scheduled the night before surgery: Ranitidine (Zantac), 150 MG PO BID Sumatriptan Succinate (Imitrex), 50 MG PO PRN PRN for Migraine (if needed) Topiramate (Topamax ), 25 MG PO BID If you have any questions please call us at [phone] or [phone] or [phone]
[~2017-08-27] VITALS: Ht 157.5 cm; Wt 106.4 kg
[~2017-08-27] MED LIST changes: +ACETAMINOPHEN 325 MG TAB PO PRN; +AMOX875T3 PO; -ANT25 PO; +ATROPINE SULFATE 0.1 MG/ML 5ML SYR IV PRN; +BUPIVACAINE 0.5 % 5 MG/1 ML MPF 30ML VIAL ONE; +FENTANYL CITRATE INJ 50 MCG/1 ML 2 ML VIAL IV PRN; +FENTANYL CITRATE INJ 50 MCG/1 ML 2 ML VIAL ONE; +IBUPROFEN 200 MG TAB ONE; +IBUPROFEN 600 MG TAB PO PRN; +KETOROLAC TROMETHAMINE 30 MG/ML VIAL IV. PRN; +LACTATED RINGER'S 1000ML 1,000 ML IV SCH; +LIDOCAINE HCL 2% 2 ML VIAL (20MG/ML) ONE; +LIDOCAINE/EPINEPHRINE 1% INJ 50 ML VIAL ONE; +MECL1TAB42 PO; +MIDAZOLAM HCL 1 MG/ML 2ML VIAL ONE; -ONDA4TAB10 SL; +ONDANSETRON INJ 2 MG/ML 2 ML VIAL IV PRN; -PLEXUS BIOCLEANSE PO; -PLEXUS PROBIO PO; +PROPOFOL IV EMULSION 10 MG/ML 20 ML VIAL IV ONE; +PSEU1TAB67 PO; +SODIUM CHLORIDE 0.9% 1000ML 1,000 ML IV SCH; +SUMA50TA15 PO; +TOPI25TA99 PO; -TRAM-10 PO
--- NOTE | 2017-08-27 08:04 | History & Physical Bridge - SC ---
H&P Re-Evaluation Bridge Note: I have examined the patient, reviewed the History & Physical and in the interval since the performance of the History & Physical I have noted the following changes of clinical significance: No changes noted
--- NOTE | 2017-08-27 09:00 | [facility] Post Operative Brief Note ---
Immediate Operative Summary Operative Date Aug 27, 2017. Pre-Operative Diagnosis Right Chest Wall Mass Post-Operative Diagnosis Same Procedure(s) Performed Right Chest Wall Mass Excision Surgeon Dr. Rhona Rosado Knockdown Worker Surgeon(s) Trixie Garrison PA-C Estimated Blood Loss 1 cc Findings No distinct mass, area of firm fat excised roughly 2.5 x 2 cm in size. Specimens A. Right Chest Wall Mass Drains none Anesthesia MAC/local Complication(s) None Disposition Recovery Room / PACU
--- NOTE | 2017-08-27 09:05 | [facility] Operative Report ---
Operative Report Operative Date Aug 27, 2017. Pre-Operative Diagnosis Right Chest Wall Mass Post-Operative Diagnosis Same Procedure(s) Performed Right Chest Wall Mass Excision Surgeon Dr. Rhona Rosado Cio Surgeon(s) Trixie Garrison PA-C Estimated Blood Loss 1 cc Findings No distinct mass, area of firm fat excised roughly 2.5 x 2 cm in size. Specimens A. Right Chest Wall Mass Drains none Anesthesia MAC/local Complication(s) None Disposition Recovery Room / PACU Indications 36-year-old female with tender right chest mass, did not appear associated with breast tissue, ultrasound suggested fat necrosis, plan for excision of chest wall mass. The risks of the procedure were discussed, all questions were answered, and the patient agreed to proceed with surgery as planned. Description of Procedure The patient was properly identified, consented, and taken to the operating room where she was placed in the supine position. Monitored anesthesia care was induced. SCDs and a safety belt were placed. Preoperative antibiotics were administered. The patient's chest was prepped and draped in the standard sterile fashion. Surgical timeout was performed and all parties were in agreement that this was the correct patient and procedure to be performed and we continued as planned. Local anesthetic was injected along the skin incision. A transverse incision was made overlying the mass and deepened down through the subcutaneous tissue. There was no distinct mass, however some atypical feeling fat in the area of palpable concern was circumferentially dissected, excised, and passed off the table as specimen. The specimen measured 2.5 cm x 2 cm in size, and was superficial to any fascia. The wound was irrigated and hemostasis was confirmed. The skin was closed with interrupted 3-0 Vicryl deep dermal sutures , followed by 4-0 Monocryl running subcuticular suture. Dermabond was placed over the wound. The physician's television production assistant was essential in positioning and prepping the patient , retraction, exposure, removal of the specimen, and closure. The patient was taken to the PACU where she recovered without apparent incident. All sponge, instrument and needle counts were correct at the conclusion of the procedure. The patient tolerated the procedure well. I attest to the content of the Intraoperative Record and any orders documented therein. Any exceptions are noted below.
[2017-08-27 09:08] VITALS: TEMP 36.8
--- NOTE | 2017-08-27 09:14 | Discharge Instructions ---
Discharge Instructions Date of Service Aug 27, 2017. Visit Reason for Visit: Right Chest Wall Mass Discharge Discharge Diagnosis / Problem: Right Chest Wall Mass Discharge Goals Goal(s): Decrease discomfort, Improve function Activity Recommendations Activity Limitations: as noted below Lifting Limitations: no more than 25 pounds, until after follow-up appointment Exercise/Sports Limitations: gradually increase as tolerated Shower/Bathe: tomorrow Driving or Machine Use: resume 1 day after discharge Anesthesia . Post Anesthesia Instructions: If you have had General Anesthesia or IV Sedation: * Do not drive today. * Resume driving when surgeon permits. * Do not make important decisions or sign legal documents today. * Call surgeon for: 1. Temperature elevations greater than 101 degrees F. 2. Uncontrollable pain. 3. Excessive bleeding. 4. Persistent nausea and vomiting. 5. Medication intolerance (nausea, vomiting or rash). * For nausea and vomiting use only clear liquids such as: tea, soda, bouillon until nausea subsides, then gradually increase diet as tolerated. * If you have any concerns or questions, call your surgeon's office. If physician is unavailable and it is an emergency, call 911 or go to the nearest emergency room. . Instructions / Follow-Up Instructions / Follow-Up You have surgical glue covering your incision. Please allow this to fall off on its own. You may use over the counter Ibuprofen as directed on the bottle as needed for pain relief. You may alternate this with Tylenol for better pain relief as well. Please follow-up with Dr. Rosado in the office in 1-2 weeks. Please contact our office at to schedule an appointment if you have not done so already. Please contact our office with any questions or concerns. [facility]. [address] [place] [address]. Diet Recommendations Recommended Home Diet: no limitations, resume previous diet Procedures Procedures Performed: Right Chest Wall Mass Excision Pending Studies Studies pending at discharge: yes List of pending studies: Pathology Medical Emergencies . Who to Call and When: Medical Emergencies: If at any time you feel your situation is an emergency, please call 911 immediately. . Non-Emergent Contact Non-Emergency issues call your: Primary Care Provider, Surgeon Call Non-Emergent contact if: you have a fever, temperature is above 101.5, your pain is not controlled, your pain is worsening, wound has increased drainage, wound has increased redness, you have any medication questions . . "Provider Documentation" section prepared by Harjinder Garrison. . [place] Drug Monitoring Program Drug Monitoring Findings: N/A - no narcotic or scheduled medications prescribed for this encounter.
--- NOTE | 2017-08-27 09:23 | Anesthesia Progress Nt - [facility] ---
Anesthesia Post Op Note Date & Time Aug 27, 2017 at 09:22 Vital Signs Pain Intensity: 3 Vital Signs Past 12 Hours Date Time Temp Pulse Resp B/P (MAP) Pulse Ox O2 Delivery O2 Flow Rate FiO2 08/27/17 09:08 36.8 79 16 125/79 (94) 96 Room Air 08/27/17 07:17 36.7 87 16 121/84 (96) 98 Room Air Notes Mental Status: alert / awake / arousable, participated in evaluation Pt Amnestic to Procedure: Yes Nausea / Vomiting: adequately controlled Pain: adequately controlled Airway Patency, RR, SpO2: stable & adequate BP & HR: stable & adequate Hydration State: stable & adequate Anesthetic Complications: no major complications apparent
[2017-08-27 09:38] VITALS: BP 116/75; PULSE 71; O2SAT 98
== END | disposition home or self-care (01) ==
LOC: X.SURG 06:42
PROVIDERS: ATTEND Surgery
DX: D36.7 Benign neoplasm of other specified sites (principal); F32.9 Major depressive disorder, single episode, unspecified; F41.9 Anxiety disorder, unspecified; E66.01 Morbid (severe) obesity due to excess calories; Z68.41 Body mass index [BMI] 40.0-44.9, adult; Z79.899 Other long term (current) drug therapy; Z98.890 Other specified postprocedural states; Z86.718 Personal history of other venous thrombosis and embolism; Z83.49 Family history of other endocrine, nutritional and metabolic diseases; Z82.3 Family history of stroke; Z80.3 Family history of malignant neoplasm of breast

== ENCOUNTER 2017-09-14 23:46 | Emergency (ER) | payer OTHER ==
[~2017-09-14] VITALS: Ht 157.5 cm; Wt 106.9 kg
[~2017-09-14 23:46] MED LIST changes: -ACETAMINOPHEN 325 MG TAB PO PRN; -AMOX875T3 PO; -ATROPINE SULFATE 0.1 MG/ML 5ML SYR IV PRN; -BUPIVACAINE 0.5 % 5 MG/1 ML MPF 30ML VIAL ONE; -FENTANYL CITRATE INJ 50 MCG/1 ML 2 ML VIAL IV PRN; -FENTANYL CITRATE INJ 50 MCG/1 ML 2 ML VIAL ONE; -IBUPROFEN 200 MG TAB ONE; -IBUPROFEN 600 MG TAB PO PRN; -KETOROLAC TROMETHAMINE 30 MG/ML VIAL IV. PRN; -LACTATED RINGER'S 1000ML 1,000 ML IV SCH; -LIDOCAINE HCL 2% 2 ML VIAL (20MG/ML) ONE; -LIDOCAINE/EPINEPHRINE 1% INJ 50 ML VIAL ONE; -MECL1TAB42 PO; -MIDAZOLAM HCL 1 MG/ML 2ML VIAL ONE; -ONDANSETRON INJ 2 MG/ML 2 ML VIAL IV PRN; -PROPOFOL IV EMULSION 10 MG/ML 20 ML VIAL IV ONE; -PSEU1TAB67 PO; +RANI150T85 PO; -SODIUM CHLORIDE 0.9% 1000ML 1,000 ML IV SCH; -ZNTT/150 PO
[2017-09-14] MEDS ORDERED: DiphenhydrAMINE HCL 50 MG/ML VIAL IV STA (23:50)
[2017-09-14] MEDS ORDERED: METOCLOPRAMIDE HCL INJ 5 MG/ML 2 ML VIAL IV STA (23:50)
[2017-09-14] MEDS ORDERED: SODIUM CHLORIDE 0.9% 1000ML 2,000 ML IV STA (23:50)
[2017-09-14 23:54] VITALS: TEMP 36.9; Ht 157.5 cm; Wt 106.9 kg
--- NOTE | 2017-09-14 23:59 | EMERGENCY ROOM VISIT NOTE ---
History Report prepared by Manasaibshane: Erika Orosco Under the Supervision of: Dr. Fer Dorman M.D. First contact with patient: 23:48 Chief Complaint: HEADACHE Stated Complaint: HEADACHE History of Present Illness The patient is a 36 year old female who presents to the Emergency Room with complaints of a persistent headache for the past few hours. She rates her pain as an 8/10 in severity. EMS reports the patient has experienced flu like symptoms including a cough and body aches, for the past 2 weeks. She saw her doctor earlier today and was diagnosed with a sinus infection. She was placed on Augmentin and Prednisone, but has not started the Prednisone yet. Earlier this evening, she developed a headache in the frontal portion of her head. She admits to a history of headaches but states her pain does not feel like her typical headache pain. Her fiance reports the patient was walking back from the bathroom last night when she experienced a syncopal episode. Her most recent syncopal episode before last night was right before [place]. The patient denies any abdominal pain or diarrhea. She complains of feeling very weak here in the ED. Source of History: patient Onset: earlier this evening Position: head, other (global) Timing: other (persistent) Associated Symptoms: + cough, + weakness, No abdominal pain, No diarrhea Review of Systems See HPI for pertinent positives and negatives. A total of ten systems were reviewed and were otherwise negative. Past Medical & Surgical Medical Problems: (1) Altered mental status (2) Ankle sprain (3) Cellulitis (4) Dizziness (5) Encounter for wound re-check (6) Endometriosis (7) Headache (8) Headache (9) Hx of ectopic (10) Infected insect bite of abdominal wall (11) Intractable headache (12) Lyme disease (13) Nausea (14) Pain, dental (15) Paresthesia of left leg (16) Right knee pain (17) Sepsis (18) Severe headache (19) Tachycardia (20) Unresponsive episode (21) UTI (urinary tract infection) (22) Vaginal bleeding in patient at less than 20 weeks gestation (23) Vertigo (24) Weakness Surgical Problems: (1) Chiari malformation Family History FH: mental illness Heart disease Social History Smoking Status: Never Smoker Alcohol Use: none Drug Use: none Marital Status: , other Housing Status: lives with family Occupation Status: employed Current/Historical Medications Scheduled Amoxicillin (Amoxil), 875 MG PO Q12 Ranitidine (Zantac), 150 MG PO BID Topiramate (Topamax ), 25 MG PO BID Scheduled PRN Meclizine Hcl (Meclizine Hcl), 25 MG PO TID PRN for dizziness Pseudoephedrine Hcl (Pseudoephedrine Hcl Er), 30 MG PO DIRECTED PRN for sinus Sumatriptan Succinate (Imitrex), 50 MG PO PRN PRN for Migraine Allergies Coded Allergies: Albuterol (Verified Allergy, Mild, PASS OUT, 09/15/17) Fish Allergy (Verified Allergy, Unknown, SEAFOOD ALLERGY, 09/15/17) PASS OUT Physical Exam Vital Signs Date Time Temp Pulse Resp B/P (MAP) Pulse Ox O2 Delivery O2 Flow Rate FiO2 09/15/17 04:06 76 16 120/75 98 09/15/17 03:23 93 09/15/17 02:34 99 131/81 09/15/17 01:21 102 16 131/81 98 Room Air 09/14/17 23:54 36.9 105 16 131/81 98 Room Air 09/14/17 23:54 107 Physical Exam GENERAL: Awake, alert, uncomfortable-appearing, in no distress, but provides poor effort with exam HENT: Normocephalic, atraumatic. Oropharynx unremarkable. Dry cracked mucous membranes. EYES: Normal conjunctiva. Sclera non-icteric. NECK: Supple. No nuchal rigidity. FROM. No JVD. RESPIRATORY: Scant wheezes and rhonchi. CARDIAC: Regular rate, normal rhythm. Extremities warm and well perfused. Pulses equal. ABDOMEN: Soft, non-distended. No tenderness to palpation. No rebound or guarding. No masses. RECTAL: Deferred. MUSCULOSKELETAL: Patient is moving all extremities. Chest examination reveals no tenderness. The back is symmetrical on inspection without obvious abnormality. There is no CVA tenderness to palpation. No joint edema. LOWER EXTREMITIES: Calves are equal size bilaterally and non-tender. No edema. No discoloration. NEURO: Normal sensorium. No sensory or motor deficits noted. SKIN: No rash or jaundice noted. Medical Decision & Procedures ER Provider Diagnostic Interpretation: STATRAD Preliminary Findings Only See Final Report For Complete Findings CT HEAD: Compared to 05/31/17 No acute intracranial process. Redemonstrated suboccipital craniectomy. CHEST X-RAY Mild cardiomegaly, no gross infiltrates seen on X-Ray. Laboratory Results 09/15/17 00:05 Red Blood Count 4.37, Mean Corpuscular Volume 85.1, Mean Corpuscular Hemoglobin 28.1, Mean Corpuscular Hemoglobin Concent 33.1, Mean Platelet Volume 11.0, Neutrophils (%) (Auto) 80.8, Lymphocytes (%) (Auto) 12.6, Monocytes (%) (Auto) 5.1, Eosinophils (%) (Auto) 1.1, Basophils (%) (Auto) 0.2, Neutrophils # (Auto) 5.29, Lymphocytes # (Auto) 0.82, Monocytes # (Auto) 0.33, Eosinophils # (Auto) 0.07, Basophils # (Auto) 0.01 09/15/17 00:05 Test 09/15/17 00:05 09/15/17 02:35 White Blood Count 6.53 K/uL (4.8-10.8) Red Blood Count 4.37 M/uL (4.2-5.4) Hemoglobin 12.3 g/dL (12.0-16.0) Hematocrit 37.2 % (37-47) Mean Corpuscular Volume 85.1 fL (80-100) Mean Corpuscular Hemoglobin 28.1 pg (25-34) Mean Corpuscular Hemoglobin Concent 33.1 g/dl (32-36) Platelet Count 119 K/uL (130-400) Mean Platelet Volume 11.0 fL (7.4-10.4) Neutrophils (%) (Auto) 80.8 % Lymphocytes (%) (Auto) 12.6 % Monocytes (%) (Auto) 5.1 % Eosinophils (%) (Auto) 1.1 % Basophils (%) (Auto) 0.2 % Neutrophils # (Auto) 5.29 K/uL (1.4-6.5) Lymphocytes # (Auto) 0.82 K/uL (1.2-3.4) Monocytes # (Auto) 0.33 K/uL (0.11-0.59) Eosinophils # (Auto) 0.07 K/uL (0-0.5) Basophils # (Auto) 0.01 K/uL (0-0.2) RDW Standard Deviation 41.4 fL (36.4-46.3) RDW Coefficient of Variation 13.3 % (11.5-14.5) Immature Granulocyte % (Auto) 0.2 % Immature Granulocyte # (Auto) 0.01 K/uL (0.00-0.02) Anion Gap 6.0 mmol/L (3-11) Est Creatinine Clear Calc Drug Dose 93.1 ml/min Estimated GFR () 87.7 Estimated GFR (Non- 75.7 BUN/Creatinine Ratio 10.4 (10-20) Calcium Level 8.6 mg/dl (8.5-10.1) Total Bilirubin 0.4 mg/dl (0.2-1) Direct Bilirubin < 0.1 mg/dl (0-0.2) Aspartate Amino Transf (AST/SGOT) 14 U/L (15-37) Alanine Aminotransferase (ALT/SGPT) 16 U/L (12-78) Alkaline Phosphatase 86 U/L (45-117) Total Protein 7.5 gm/dl (6.4-8.2) Albumin 3.9 gm/dl (3.4-5.0) Lipase 130 U/L (73-393) Chemistry Specimen Hemolysis Influenza Type A (RT-PCR) Neg for Influ A (NEG) Influenza Type A Antigen Neg for Influ A (NEG) Influenza Type B Antigen Neg for Influ B (NEG) Influenza Type B (RT-PCR) Neg for Influ B (NEG) Urine Color YELLOW Urine Appearance CLEAR (CLEAR) Urine pH 6.0 (4.5-7.5) Urine Specific [place] 1.010 (1.000-1.030) Urine Protein NEG (NEG) Urine Glucose (UA) NEG (NEG) Urine Ketones NEG (NEG) Urine Occult Blood NEG (NEG) Urine Nitrite NEG (NEG) Urine Bilirubin NEG (NEG) Urine Urobilinogen NEG (NEG) Urine Leukocyte Esterase TRACE (NEG) Urine WBC (Auto) 1-5 /hpf (0-5) Urine RBC (Auto) 0-4 /hpf (0-4) Urine Hyaline Casts (Auto) 1-5 /lpf (0-5) Urine Epithelial Cells (Auto) >30 /lpf (0-5) Urine Bacteria (Auto) NEG (NEG) Laboratory results reviewed by me Medications Administered Medications (Trade) Dose Ordered Sig/Lelia Route Start Time Stop Time Status Last Admin Dose Admin Sodium Chloride 2,000 ml @ 999 mls/hr Q2H1M STAT IV 09/14/17 23:50 09/15/17 01:50 DC 09/14/17 23:50 999 MLS/HR Metoclopramide HCl (Reglan Inj) 10 mg NOW STAT IV 09/14/17 23:50 09/14/17 23:56 DC 09/15/17 00:22 10 MG Diphenhydramine HCl (Benadryl Inj) 25 mg NOW STAT IV 09/14/17 23:50 09/14/17 23:56 DC 09/15/17 00:22 25 MG Dexamethasone Sodium Phosphate (Dexamethasone Inj Pf) 10 mg NOW ONCE IV 09/15/17 03:00 09/15/17 03:01 DC 09/15/17 02:59 10 MG Sodium Chloride 1,000 ml @ 999 mls/hr Q1H1M STAT IV 09/15/17 02:50 09/15/17 03:50 DC 09/15/17 02:59 999 MLS/HR ED Course 2348: The patient was evaluated in room B9. A complete history and physical exam was performed. 1430: I reevaluated the patient. She is in the bathroom. I will try back later. 0247: I reevaluated the patient. She is still dizzy but feels well. I will give her more fluid before she goes and discussed the importance of getting a good nights sleep tonight. I discussed her results and discharge instructions and she verbalized complete understanding and agreement. Medical Decision I reviewed the patient's past medical history, medications, and the nursing notes as described above. Differential Diagnoses: Pneumonia, bronchitis, UTI, influenza and viral syndrome. The patient is a 36-year-old woman with a past medical history of migraines as well as strip Chiari malformation status post resection who presents emergency Department with fevers and chills and generalized weakness per hpi. On arrival the patient is fatigued appearing in no acute distress, afebrile with heart rate in the low 100s but vital signs otherwise stable. Patient does appear clinically dry. Abdomen unremarkable including WBC within normal limits. Chest x-ray unremarkable. CT head unremarkable. Patient was given 2 L of NS and migraine cocktail with mild improvement in symptoms. Given additional liter of NS with dose of dexamethasone with significant improvement. Patient feeling OK to go home. Findings and plan for follow-up reviewed with patient. Patient agreeable and d/c'd per discharge instructions. Medication Reconcilliation Current Medication List: was personally reviewed by me Blood Pressure Screening Patient's blood pressure: Normal blood pressure Blood pressure disposition: Did not require urgent referral Impression Primary Impression: Migraine headache Additional Impressions: Dehydration Sinusitis, acute Scribe Attestation The scribe's documentation has been prepared under my direction and personally reviewed by me in its entirety. I confirm that the note above accurately reflects all work, treatment, procedures, and medical decision making performed by me. Departure Information Dispostion Home / Self-Care Referrals Guillermo Fink M.D. (PCP) Patient Instructions ED Dehydration, ED Headache Migraine, ED Headache Sinus, ED Sinusitis Abx Tx, My [facility] Additional Instructions Please follow up with your primary care physician in the next 1-3 days for re- evaluation. Your symptoms are likely related to your migraine, provoked by your sinusitis and mild dehydration. Otherwise, your exam, CT scan of your head, chest xray, and lab results did not show signs of an emergent condition at this time. Continue your Augmentin and Prednisone as prescribed by your doctor. Drink plenty of fluids to ensure hydration. Return to the emergency department for worsening symptoms as described in the accompanying instructions. Problem Qualifiers
[2017-09-15 00:20] LABS: BASO % 0.2 %; BASO ABS # 0.01 K/uL (0-0.2); EOS % 1.1 %; EOS ABS # 0.07 K/uL (0-0.5); HEMATOCRIT 37.2 % (37-47); HEMOGLOBIN 12.3 g/dL (12.0-16.0); IG# 0.01 K/uL (0.00-0.02); LYMPH % 12.6 %; LYMPH ABS # 0.82 K/uL (1.2-3.4); MEAN CELL VOLUME 85.1 fL (80-100); MEAN CORPUSCULAR HEMOGLOBIN 28.1 pg (25-34); MEAN CORPUSCULAR HGB CONC 33.1 g/dl (32-36); MONO % 5.1 %; MONO ABS # 0.33 K/uL (0.11-0.59); NEUT % 80.8 %; NEUT ABS # 5.29 K/uL (1.4-6.5); PLATELET COUNT 119 K/uL (130-400); RED CELL DISTRIBUTION WIDTH CV 13.3 % (11.5-14.5); RED CELL DISTRIBUTION WIDTH SD 41.4 fL (36.4-46.3); WHITE BLOOD COUNT 6.53 K/uL (4.8-10.8)
[2017-09-15] MEDS ORDERED: MECL1TAB42 PO (00:22)
[2017-09-15] MEDS ORDERED: PSEU1TAB67 PO (00:24)
[2017-09-15] MEDS ORDERED: AMOX875T3 PO (00:25)
[2017-09-15 00:51] LABS: INFLUENZA B ANTIGEN Neg for Influ B (NEG)
[2017-09-15 00:52] LABS: ALBUMIN 3.9 gm/dl (3.4-5.0); ALKALINE PHOSPHATASE 86 U/L (45-117); ALT/SGPT 16 U/L (12-78); AST/SGOT 14 U/L (15-37); BLOOD UREA NITROGEN 10 mg/dl (7-18); CALCIUM 8.6 mg/dl (8.5-10.1); CARBON DIOXIDE 22 mmol/L (21-32); CREATININE 0.97 mg/dl (0.60-1.20); GLUCOSE 108 mg/dl (70-99); LIPASE 130 U/L (73-393); SODIUM 137 mmol/L (136-145); TOTAL PROTEIN 7.5 gm/dl (6.4-8.2)
[2017-09-15 01:03] LABS: INFLUENZA A PCR Neg for Influ A (NEG); INFLUENZA B PCR Neg for Influ B (NEG)
[2017-09-15] MEDS ORDERED: SODIUM CHLORIDE 0.9% 1000ML 1,000 ML IV STA (02:50)
[2017-09-15] MEDS ORDERED: DEXAMETHASONE **PF** INJ 10 MG/ML VIAL IV ONE (03:00)
[2017-09-15 04:06] VITALS: BP 120/75; PULSE 76; O2SAT 98
--- NOTE | 2017-09-15 06:45 | DIAGNOSTIC IMAGING REPORT ---
CHEST ONE VIEW PORTABLE CLINICAL HISTORY: fever COMPARISON STUDY: 06/27/2017 FINDINGS: The cardiac and mediastinal contours are normal. There is no evidence of focal pulmonary consolidation. There is no evidence of failure. No pleural effusions are visualized.[ IMPRESSION: No active disease in the chest. Electronically signed by: Andre Weeks M.D. 09/15/2017 6:44 AM Dictated Date/Time: 09/15/2017 6:44 AM
--- NOTE | 2017-09-15 06:57 | DIAGNOSTIC IMAGING REPORT ---
CT HEAD WITHOUT CONTRAST (CT) CLINICAL HISTORY: head, syncope COMPARISON STUDY: 06/27/2017 TECHNIQUE: Axial CT of the brain is performed from the vertex to the skull base. IV contrast was not administered for this examination. A dose lowering technique was utilized adhering to the principles of ALARA. CT DOSE: 537.48 mGy.cm FINDINGS: No intra or extra-axial mass lesions are visualized. There is no CT evidence of acute cortical infarction. There is no evidence of midline shift. There is no acute hemorrhage. No calvarial fractures are visualized. There are postsurgical changes of a suboccipital craniotomy. There is no evidence of pathologic ventricular dilatation. There is no evidence of acute sinusitis There is mild disconjugate ocular gaze. The sella remains enlarged. It partially empty sella is again suggested. IMPRESSION: 1. No acute intracranial findings 2. Postsurgical changes of a suboccipital craniotomy. Low-lying cerebellar tonsils. 3. Stable enlarged sella with a suspected partially empty sella. Electronically signed by: Andre Weeks M.D. 09/15/2017 6:56 AM Dictated Date/Time: 09/15/2017 6:54 AM
[2017-09-25] MEDS ORDERED: MRLP17 PO (15:34)
[2017-09-25] MEDS ORDERED: CYAN1TAB18 PO (15:34)
== END 2017-09-15 04:07 | disposition home or self-care (01) ==
LOC: EDBD 23:46 → C.EDB 23:47
DX: G43.909 Migraine, unspecified, not intractable, without status migrainosus (principal); E86.0 Dehydration; J01.90 Acute sinusitis, unspecified; N80.9 Endometriosis, unspecified; Z87.440 Personal history of urinary (tract) infections; Z98.890 Other specified postprocedural states

== ENCOUNTER 2017-09-20 09:08 | Inpatient (IN) | payer OTHER ==
[~2017-09-20] VITALS: Ht 157.5 cm; Wt 103.2 kg
[~2017-09-20 09:08] MED LIST changes: +AMOX875T3 PO; +MECL1TAB42 PO; +PSEU1TAB67 PO; -RANI150T85 PO; +ZNTT/150 PO
[2017-09-20] MEDS ORDERED: ONDANSETRON INJ 2 MG/ML 2 ML VIAL IV STA (09:44)
[2017-09-20 10:09] LABS: BASO % 0.2 %; BASO ABS # 0.02 K/uL (0-0.2); EOS % 0.5 %; EOS ABS # 0.05 K/uL (0-0.5); HEMATOCRIT 41.1 % (37-47); IG# 0.03 K/uL (0.00-0.02); LYMPH % 13.1 %; LYMPH ABS # 1.24 K/uL (1.2-3.4); MEAN CELL VOLUME 84.6 fL (80-100); MEAN CORPUSCULAR HEMOGLOBIN 28.8 pg (25-34); MEAN CORPUSCULAR HGB CONC 34.1 g/dl (32-36); MEAN PLATELET VOLUME 10.9 fL (7.4-10.4); MONO % 5.7 %; MONO ABS # 0.54 K/uL (0.11-0.59); NEUT % 80.2 %; NEUT ABS # 7.55 K/uL (1.4-6.5); PLATELET COUNT 236 K/uL (130-400); RED CELL DISTRIBUTION WIDTH CV 13.4 % (11.5-14.5); RED CELL DISTRIBUTION WIDTH SD 40.8 fL (36.4-46.3); WHITE BLOOD COUNT 9.43 K/uL (4.8-10.8)
[2017-09-20] MEDS ORDERED: SODIUM CHLORIDE 0.9% 1000ML 2,000 ML IV STA (10:14)
--- NOTE | 2017-09-20 10:27 | DIAGNOSTIC IMAGING REPORT ---
CHEST ONE VIEW PORTABLE CLINICAL HISTORY: weak ams mental status change COMPARISON STUDY: 09/15/2017 FINDINGS: The bones soft tissues and hemidiaphragms are normal. The cardiomediastinal silhouette is normal. The lungs are clear. The pulmonary vasculature is normal. IMPRESSION: Negative chest. The above report was generated using voice recognition software. It may contain grammatical, syntax or spelling errors. Electronically signed by: Donny Francois M.D. 09/20/2017 10:26 AM Dictated Date/Time: 09/20/2017 10:25 AM
[2017-09-20 10:29] LABS: ALBUMIN 3.9 gm/dl (3.4-5.0); ALT/SGPT 12 U/L (12-78); AST/SGOT 8 U/L (15-37); BLOOD UREA NITROGEN 15 mg/dl (7-18); CALCIUM 8.8 mg/dl (8.5-10.1); CARBON DIOXIDE 22 mmol/L (21-32); CREATININE 0.97 mg/dl (0.60-1.20); GLUCOSE 93 mg/dl (70-99); POTASSIUM 3.6 mmol/L (3.5-5.1); SODIUM 139 mmol/L (136-145)
[2017-09-20 10:31] LABS: ALKALINE PHOSPHATASE 92 U/L (45-117); TOTAL PROTEIN 7.6 gm/dl (6.4-8.2)
--- NOTE | 2017-09-20 10:38 | DIAGNOSTIC IMAGING REPORT ---
CT HEAD WITHOUT CONTRAST (CT) CLINICAL HISTORY: Severe headache and tremors COMPARISON STUDY: 09/15/2017 TECHNIQUE: Axial CT of the brain is performed from the vertex to the skull base. IV contrast was not administered for this examination. A dose lowering technique was utilized adhering to the principles of ALARA. CT DOSE: 679.75 mGycm FINDINGS: No intra or extra-axial mass lesions are visualized. There is no CT evidence of acute cortical infarction. There is no evidence of midline shift. There is no acute hemorrhage. No calvarial fractures are visualized. There are postsurgical changes of a suboccipital craniotomy. There is a Chiari malformation. There is no evidence of pathologic ventricular dilatation. There is no evidence of acute sinusitis. The sella remains enlarged. IMPRESSION: 1. No acute intracranial findings 2. Chiari malformation with evidence of a prior suboccipital craniotomy 3. Stable enlarged sella with a suspected partially empty sella Electronically signed by: Andre Weeks M.D. 09/20/2017 10:37 AM Dictated Date/Time: 09/20/2017 10:36 AM
[2017-09-20 10:59] LABS: LIPASE 145 U/L (73-393)
[2017-09-20 13:22] VITALS: O2SAT 97; Ht 157.5 cm; Wt 103.2 kg
[2017-09-20] MEDS ORDERED: ACETAMINOPHEN 325 MG TAB PO PRN (13:30)
[2017-09-20] MEDS ORDERED: MECLIZINE HCL 25 MG TAB PO PRN (14:00)
--- NOTE | 2017-09-20 14:25 | History and Physical ---
History & Physical Date & Time of Service: Sep 20, 2017 at 13:09 Chief Complaint: Tremors, R Hand Numbess, L Leg Numbess Primary Care Physician: Guillermo Fink M.D. History of Present Illness Source: patient, family Ms. Land is here today accompanied by her fiance who gives most of the history. This is her seventh visit to the ER within a year, mainly for syncope and migraine. She recently was diagnosed with a sinus infection and treated with antibiotics and prednisone. She has been unsteady on her feet since Sep 03 when started having cold symptoms. More recently she started experiencing tremors and lethargy and staring off into space. She has fallen two or three times over the past week at home. She doesn't' remember falling, last was Wednesday night, she is not sure if she hit her head but she had a red tremayne above her eye. She was walking to chair and next thing she knew she was waking up on the ground. She has had a significant outpatient workup for syncope including Holter monitor study. No cp or sob, no fever, no nausea or vomiting, no changes in bowel or bladder. She feels somewhat lightheaded when she stands up. ROS Constitutional: no chills, aches, sweats or fever Respiratory: no sob,cough, sputum, or wheezing Cardiac: no chest pain, palpitations, edema, orthopnea or lightheadedness GI: no abdominal pain, nausea, vomiting, diarrhea or constipation : no dysuria or hesitancy Extremities: no joint pain or weakness Skin: no rash All other systems reviewed and negative Past Medical/Surgical History Medical Problems: (1) Altered mental status Status: Resolved (2) Ankle sprain Status: Resolved (3) Cellulitis Status: Resolved (4) Dizziness Status: Resolved (5) Encounter for wound re-check Status: Resolved (6) Endometriosis Status: Resolved (7) Headache Status: Resolved (8) Headache Status: Resolved (9) Hx of ectopic Status: Resolved (10) Infected insect bite of abdominal wall Status: Resolved (11) Intractable headache Status: Resolved (12) Lyme disease Status: Resolved (13) Nausea Status: Resolved (14) Pain, dental Status: Resolved (15) Paresthesia of left leg Status: Resolved (16) Right knee pain Status: Resolved (17) Sepsis Status: Resolved (18) Severe headache Status: Resolved (19) Tachycardia Status: Resolved (20) Unresponsive episode Status: Resolved (21) UTI (urinary tract infection) Status: Resolved (22) Vaginal bleeding in patient at less than 20 weeks gestation Status: Resolved (23) Vertigo Status: Resolved (24) Weakness Status: Resolved Surgical Problems: (1) Chiari malformation Status: Resolved Family History FH: mental illness Heart disease Social History Smoking Status: Never Smoker Smokeless Tobacco Use: No Alcohol Use: none Drug Use: none Marital Status: other (engaged) Housing status: lives with family (bia and her two children) Occupational Status: unemployed Immunizations History of Influenza Vaccine: Yes Influenza Vaccine Date: Jul 12, 2008 History of Tetanus Vaccine?: states up to date Tetanus Immunization Date: Sep 13, 2007 History of Pneumococcal: No History of Hepatitis B Vaccine: Yes Hepatitis Immunization Date: Oct 14, 2007 Multi-Drug Resistant Organisms History of MDRO: No Allergies Coded Allergies: Fish Allergy (Verified Allergy, Unknown, SEAFOOD ALLERGY, 09/20/17) PASS OUT Albuterol (Verified Adverse Reaction, Mild, PASS OUT, 09/21/17) Home Medications Scheduled Amoxicillin (Amoxil), 875 MG PO Q12 Ranitidine (Zantac), 150 MG PO BID Topiramate (Topamax ), 25 MG PO BID Scheduled PRN Meclizine Hcl (Meclizine Hcl), 25 MG PO TID PRN for dizziness Pseudoephedrine Hcl (Pseudoephedrine Hcl Er), 30 MG PO DIRECTED PRN for sinus Sumatriptan Succinate (Imitrex), 50 MG PO PRN PRN for Migraine Physical Exam Vital Signs Date Time Temp Pulse Resp B/P (MAP) Pulse Ox O2 Delivery O2 Flow Rate FiO2 09/20/17 12:31 85 09/20/17 12:09 86 20 137/88 97 Room Air 09/20/17 11:12 92 16 143/87 96 Room Air 09/20/17 10:05 82 09/20/17 10:00 85 16 122/97 98 Room Air 09/20/17 09:14 37.0 94 18 127/77 99 Room Air General: no distress EENT: right gaze nystagmus, PERLL, right tympanic membrane with fluid behind it , sinus tender to palpation over ethmoid and frontal Respiratory: chest non tender, clear to auscultation, normal breath sounds, no respiratory distress, no accessory muscle use Cardiac: regular rate and rhythm, no rub or gallop, no murmur, no edema, no jvd GI/: active bowel sounds, no abd pain or tenderness, soft, non distended Extremities: normal range of motion, right arm drift, right hand weakness and decreased sensation, left leg weakness Neuro/Psych: alert and oriented x 3, normal mood and flat affect Skin: flushed appearance Diagnostics Laboratory Results Results Past 24 Hours Test 09/20/17 09:55 09/20/17 10:30 Range/Units White Blood Count 9.43 4.8-10.8 K/uL Red Blood Count 4.86 4.2-5.4 M/uL Hemoglobin 14.0 12.0-16.0 g/dL Hematocrit 41.1 37-47 % Mean Corpuscular Volume 84.6 80-100 fL Mean Corpuscular Hemoglobin 28.8 25-34 pg Mean Corpuscular Hemoglobin Concent 34.1 32-36 g/dl Platelet Count 236 130-400 K/uL Mean Platelet Volume 10.9 7.4-10.4 fL Neutrophils (%) (Auto) 80.2 % Lymphocytes (%) (Auto) 13.1 % Monocytes (%) (Auto) 5.7 % Eosinophils (%) (Auto) 0.5 % Basophils (%) (Auto) 0.2 % Neutrophils # (Auto) 7.55 1.4-6.5 K/uL Lymphocytes # (Auto) 1.24 1.2-3.4 K/uL Monocytes # (Auto) 0.54 0.11-0.59 K/uL Eosinophils # (Auto) 0.05 0-0.5 K/uL Basophils # (Auto) 0.02 0-0.2 K/uL RDW Standard Deviation 40.8 36.4-46.3 fL RDW Coefficient of Variation 13.4 11.5-14.5 % Immature Granulocyte % (Auto) 0.3 % Immature Granulocyte # (Auto) 0.03 0.00-0.02 K/uL Sodium Level 139 136-145 mmol/L Potassium Level 3.6 3.5-5.1 mmol/L Chloride Level 108 98-107 mmol/L Carbon Dioxide Level 22 21-32 mmol/L Anion Gap 10.0 3-11 mmol/L Blood Urea Nitrogen 15 7-18 mg/dl Creatinine 0.97 0.60-1.20 mg/dl Est Creatinine Clear Calc Drug Dose 92.1 ml/min Estimated GFR () 87.7 Estimated GFR (Non- 75.7 BUN/Creatinine Ratio 15.1 10-20 Random Glucose 93 70-99 mg/dl Calcium Level 8.8 8.5-10.1 mg/dl Total Bilirubin 0.5 0.2-1 mg/dl Direct Bilirubin 0.1 0-0.2 mg/dl Aspartate Amino Transf (AST/SGOT) 8 15-37 U/L Alanine Aminotransferase (ALT/SGPT) 12 12-78 U/L Alkaline Phosphatase 92 45-117 U/L Troponin I < 0.015 0-0.045 ng/ml Total Protein 7.6 6.4-8.2 gm/dl Albumin 3.9 3.4-5.0 gm/dl Globulin 3.7 2.5-4.0 gm/dl Albumin/Globulin Ratio 1.0 0.9-2 Lipase 145 73-393 U/L Urine Color YELLOW Urine Appearance CLEAR CLEAR Urine pH 6.5 4.5-7.5 Urine Specific [place] 1.022 1.000-1.030 Urine Protein NEG NEG Urine Glucose (UA) NEG NEG Urine Ketones NEG NEG Urine Occult Blood NEG NEG Urine Nitrite NEG NEG Urine Bilirubin NEG NEG Urine Urobilinogen NEG NEG Urine Leukocyte Esterase NEG NEG Urine WBC (Auto) 1-5 0-5 /hpf Urine RBC (Auto) 0-4 0-4 /hpf Urine Hyaline Casts (Auto) 1-5 0-5 /lpf Urine Epithelial Cells (Auto) 10-20 0-5 /lpf Urine Bacteria (Auto) NEG NEG Urine Test NEG NEG Diagnostic Radiology CHEST ONE VIEW PORTABLE CLINICAL HISTORY: weak ams mental status change COMPARISON STUDY: 09/15/2017 FINDINGS: The bones soft tissues and hemidiaphragms are normal. The cardiomediastinal silhouette is normal. The lungs are clear. The pulmonary vasculature is normal. IMPRESSION: Negative chest. CT HEAD WITHOUT CONTRAST (CT) CLINICAL HISTORY: Severe headache and tremors COMPARISON STUDY: 09/15/2017 TECHNIQUE: Axial CT of the brain is performed from the vertex to the skull base. IV contrast was not administered for this examination. A dose lowering technique was utilized adhering to the principles of ALARA. CT DOSE: 679.75 mGycm FINDINGS: No intra or extra-axial mass lesions are visualized. There is no CT evidence of acute cortical infarction. There is no evidence of midline shift. There is no acute hemorrhage. No calvarial fractures are visualized. There are postsurgical changes of a suboccipital craniotomy. There is a Chiari malformation. There is no evidence of pathologic ventricular dilatation. There is no evidence of acute sinusitis. The sella remains enlarged. IMPRESSION: 1. No acute intracranial findings 2. Chiari malformation with evidence of a prior suboccipital craniotomy EKG Normal sinus rhythm Cannot rule out Anterior infarct , age undetermined Abnormal ECG When compared with ECG of 27-JUN-2017 11:09, No significant change was found Impression Assessment and Plan Ms. Land is a 36 year old woman here for asymmetrical weakness, unwitnessed syncope, and altered neurological status Altered neuro status, asymmetrical weakness, syncope - admit tele - consulted neurology and discussed with Dr. Sparks - will order MRI brain combo - unlikely this is stroke as symptoms are contralateral and patient does not have risk factors. - CT head negative for acute process - cbc, prp am - continue home meclizine for dizziness prn - IVF as patient reports decreased intake recently and has been ill - PT/OT - orthostatics qs Sinus infection - continue Augmentin - per outpatient records last day of therapy is 09/23 for 10 day course Hx migraine - continue home scheduled Topamax and sumatriptan prn GERD - continue ranitidine Full code, SCDs Advanced Directives Existing Advance Directive: No Existing Living Will: No Existing Power of Security And Compliance Project Manager: No Resuscitation Status FULL RESUSCITATION Note Supervising Note Dr. Craig I performed a history and physical examination on the patient. I reviewed above note and agree with it. I discussed plan with APC and patient. During my face to face encounter with the patient, I answered all of the patient's questions.
--- NOTE | 2017-09-20 15:13 | EMERGENCY ROOM VISIT NOTE ---
History Report prepared by James: Corey Calvillo Under the Supervision of: Dr. Pawan Lagunas D.O. First contact with patient: 09:58 Chief Complaint: NEURO SYMPTOMS Stated Complaint: TREMORS, R HAND NUMBESS, L LEG NUMBESS Nursing Triage Summary: states, "Throughout the night she was tremoring in her right hand all night... now when her friend was bringing her up here shes complaining of numbness in left foot and depressed sensation in right foot. She also seens a little bit lethargic to me.. and she almost fell walking out of the bathroom this morning.. luckily I caught her." patient c/o frontal headache x 1 week paitnet also c/o sinus infection and is receiving augmentin and prednisone. last dose of prednisone was this AM. on arrival to patient walked to bathroom with steady gait. no tremors noted at this time History of Present Illness The patient is a 36 year old female who presents to the Emergency Room with complaints of persistent neuro symptoms starting last night. The patient's family states that last night she was getting a tremor, she was having some confusion. Additionally, the patient states that she has been having some right hand numbness, left foot numbness for the past few days, a headache for the past week, some posterior neck pain, and some generalized weakness for the past few days. The patient's family also states that she has a similar episode 6 days ago with confusion, right sided weakness, slurred speech, and tremors. She did not have any facial droop with that episode. The patient has no known psychiatric problems, and she has no known family history of MS. She has a history of Chiari malformation surgery. The patient denies any drug or alcohol usage, and she states that she has taken any extra medications. Pt denies change in vision, fevers, chest pain, shortness of breath, nausea, vomiting, diarrhea, pain with urination, and melena. Source of History: patient, family Onset: last night Position: other (global) Quality: other (neuro symptoms) Timing: other (persistent) Associated Symptoms: + neck pain, + weakness, + numbness Note: Associated symptoms: Tremors Review of Systems See HPI for pertinent positives & negatives. A total of 10 systems reviewed and were otherwise negative. Past Medical & Surgical Medical Problems: (1) Alteration in neurological status (2) Altered mental status (3) Ankle sprain (4) Cellulitis (5) Dizziness (6) Encounter for wound re-check (7) Endometriosis (8) Headache (9) Headache (10) Hx of ectopic (11) Infected insect bite of abdominal wall (12) Intractable headache (13) Lyme disease (14) Nausea (15) Pain, dental (16) Paresthesia of left leg (17) Right knee pain (18) Sepsis (19) Severe headache (20) Syncope (21) Tachycardia (22) Unresponsive episode (23) UTI (urinary tract infection) (24) Vaginal bleeding in patient at less than 20 weeks gestation (25) Vertigo (26) Weakness Surgical Problems: (1) Chiari malformation Family History FH: mental illness Heart disease Social History Smoking Status: Never Smoker Alcohol Use: none Drug Use: none Marital Status: , other Housing Status: lives with family Occupation Status: employed Current/Historical Medications Scheduled Amoxicillin (Amoxil), 875 MG PO Q12 Ranitidine (Zantac), 150 MG PO BID Topiramate (Topamax ), 25 MG PO BID Scheduled PRN Meclizine Hcl (Meclizine Hcl), 25 MG PO TID PRN for dizziness Pseudoephedrine Hcl (Pseudoephedrine Hcl Er), 30 MG PO DIRECTED PRN for sinus Sumatriptan Succinate (Imitrex), 50 MG PO PRN PRN for Migraine Allergies Coded Allergies: Albuterol (Verified Allergy, Mild, PASS OUT, 09/20/17) Fish Allergy (Verified Allergy, Unknown, SEAFOOD ALLERGY, 09/20/17) PASS OUT Physical Exam Vital Signs Date Time Temp Pulse Resp B/P (MAP) Pulse Ox O2 Delivery O2 Flow Rate FiO2 09/20/17 13:58 93 16 129/76 97 Room Air 09/20/17 13:22 97 Room Air 09/20/17 12:31 85 09/20/17 12:09 86 20 137/88 97 Room Air 09/20/17 11:12 92 16 143/87 96 Room Air 09/20/17 10:05 82 09/20/17 10:00 85 16 122/97 98 Room Air 09/20/17 09:14 37.0 94 18 127/77 99 Room Air Physical Exam GENERAL: Sitting up in bed, disheveled, no acute distress, slow to respond. EYE EXAM: normal conjunctiva. PERRL and EOM's intact. OROPHARYNX: no exudate, no erythema, lips, buccal mucosa, and tongue normal and mucous membranes are moist NECK: supple, no nuchal rigidity, no adenopathy, non-tender LUNGS: Clear to auscultation. Normal chest wall mechanics HEART: no murmurs, S1 normal and S2 normal ABDOMEN: abdomen soft, non-tender, normo-active bowel sounds, no masses, no rebound or guarding. BACK: Back is symmetrical on inspection and there is no deformity, no midline tenderness, no CVA tenderness. SKIN: no rashes and no bruising UPPER EXTREMITIES: upper extremities are grossly normal. LOWER EXTREMITIES: No pitting edema. NEURO EXAM: Normal sensorium, cranial nerves II-XII intact, normal speech, no weakness of legs. No drift. Finger to nose intact. Weak grasp and flexion and extension of the right upper extremity. Reported paraesthesia/decreased sensation of the left lower leg. Medical Decision & Procedures ER Provider Diagnostic Interpretation: Radiology results as stated below per my review and the radiologist's interpretation: CT HEAD WITHOUT CONTRAST (CT) CLINICAL HISTORY: Severe headache and tremors COMPARISON STUDY: 09/15/2017 TECHNIQUE: Axial CT of the brain is performed from the vertex to the skull base. IV contrast was not administered for this examination. A dose lowering technique was utilized adhering to the principles of ALARA. CT DOSE: 679.75 mGycm FINDINGS: No intra or extra-axial mass lesions are visualized. There is no CT evidence of acute cortical infarction. There is no evidence of midline shift. There is no acute hemorrhage. No calvarial fractures are visualized. There are postsurgical changes of a suboccipital craniotomy. There is a Chiari malformation. There is no evidence of pathologic ventricular dilatation. There is no evidence of acute sinusitis. The sella remains enlarged. IMPRESSION: 1. No acute intracranial findings 2. Chiari malformation with evidence of a prior suboccipital craniotomy 3. Stable enlarged sella with a suspected partially empty sella Electronically signed by: Andre Weeks M.D. 09/20/2017 10:37 AM Dictated Date/Time: 09/20/2017 10:36 AM CHEST ONE VIEW PORTABLE CLINICAL HISTORY: weak ams mental status change COMPARISON STUDY: 09/15/2017 FINDINGS: The bones soft tissues and hemidiaphragms are normal. The cardiomediastinal silhouette is normal. The lungs are clear. The pulmonary vasculature is normal. IMPRESSION: Negative chest. The above report was generated using voice recognition software. It may contain grammatical, syntax or spelling errors. Electronically signed by: Donny Francois M.D. 09/20/2017 10:26 AM Dictated Date/Time: 09/20/2017 10:25 AM Laboratory Results 09/20/17 09:55 Red Blood Count 4.86, Mean Corpuscular Volume 84.6, Mean Corpuscular Hemoglobin 28.8, Mean Corpuscular Hemoglobin Concent 34.1, Mean Platelet Volume 10.9, Neutrophils (%) (Auto) 80.2, Lymphocytes (%) (Auto) 13.1, Monocytes (%) (Auto) 5.7, Eosinophils (%) (Auto) 0.5, Basophils (%) (Auto) 0.2, Neutrophils # (Auto) 7.55, Lymphocytes # (Auto) 1.24, Monocytes # (Auto) 0.54, Eosinophils # (Auto) 0.05, Basophils # (Auto) 0.02 09/20/17 09:55 Test 09/20/17 09:55 09/20/17 10:30 White Blood Count 9.43 K/uL (4.8-10.8) Red Blood Count 4.86 M/uL (4.2-5.4) Hemoglobin 14.0 g/dL (12.0-16.0) Hematocrit 41.1 % (37-47) Mean Corpuscular Volume 84.6 fL (80-100) Mean Corpuscular Hemoglobin 28.8 pg (25-34) Mean Corpuscular Hemoglobin Concent 34.1 g/dl (32-36) Platelet Count 236 K/uL (130-400) Mean Platelet Volume 10.9 fL (7.4-10.4) Neutrophils (%) (Auto) 80.2 % Lymphocytes (%) (Auto) 13.1 % Monocytes (%) (Auto) 5.7 % Eosinophils (%) (Auto) 0.5 % Basophils (%) (Auto) 0.2 % Neutrophils # (Auto) 7.55 K/uL (1.4-6.5) Lymphocytes # (Auto) 1.24 K/uL (1.2-3.4) Monocytes # (Auto) 0.54 K/uL (0.11-0.59) Eosinophils # (Auto) 0.05 K/uL (0-0.5) Basophils # (Auto) 0.02 K/uL (0-0.2) RDW Standard Deviation 40.8 fL (36.4-46.3) RDW Coefficient of Variation 13.4 % (11.5-14.5) Immature Granulocyte % (Auto) 0.3 % Immature Granulocyte # (Auto) 0.03 K/uL (0.00-0.02) Anion Gap 10.0 mmol/L (3-11) Est Creatinine Clear Calc Drug Dose 92.1 ml/min Estimated GFR () 87.7 Estimated GFR (Non- 75.7 BUN/Creatinine Ratio 15.1 (10-20) Calcium Level 8.8 mg/dl (8.5-10.1) Total Bilirubin 0.5 mg/dl (0.2-1) Direct Bilirubin 0.1 mg/dl (0-0.2) Aspartate Amino Transf (AST/SGOT) 8 U/L (15-37) Alanine Aminotransferase (ALT/SGPT) 12 U/L (12-78) Alkaline Phosphatase 92 U/L (45-117) Troponin I < 0.015 ng/ml (0-0.045) Total Protein 7.6 gm/dl (6.4-8.2) Albumin 3.9 gm/dl (3.4-5.0) Globulin 3.7 gm/dl (2.5-4.0) Albumin/Globulin Ratio 1.0 (0.9-2) Lipase 145 U/L (73-393) Urine Color YELLOW Urine Appearance CLEAR (CLEAR) Urine pH 6.5 (4.5-7.5) Urine Specific [place] 1.022 (1.000-1.030) Urine Protein NEG (NEG) Urine Glucose (UA) NEG (NEG) Urine Ketones NEG (NEG) Urine Occult Blood NEG (NEG) Urine Nitrite NEG (NEG) Urine Bilirubin NEG (NEG) Urine Urobilinogen NEG (NEG) Urine Leukocyte Esterase NEG (NEG) Urine WBC (Auto) 1-5 /hpf (0-5) Urine RBC (Auto) 0-4 /hpf (0-4) Urine Hyaline Casts (Auto) 1-5 /lpf (0-5) Urine Epithelial Cells (Auto) 10-20 /lpf (0-5) Urine Bacteria (Auto) NEG (NEG) Urine Test NEG (NEG) Laboratory results per my review. Medications Administered Medications (Trade) Dose Ordered Sig/Lelia Route Start Time Stop Time Status Last Admin Dose Admin Ondansetron HCl (Zofran Inj) 4 mg NOW STAT IV 09/20/17 09:44 09/20/17 09:46 DC 09/20/17 09:59 4 MG Sodium Chloride 2,000 ml @ 999 mls/hr Q2H1M STAT IV 09/20/17 10:14 09/20/17 12:14 DC 09/20/17 11:11 999 MLS/HR ECG Indication: other (neuro symptoms) Rate (beats per minute): 88 Rhythm: sinus rhythm Findings: Q waves (Inferior), no ectopy ED Course ED COURSE: Vital signs were reviewed and showed normal vitals The patients medical record was reviewed The above diagnostic studies were performed and reviewed. ED treatments and interventions as stated above. 0944: Zofran 4mg IV 0958: The patient was evaluated in room C10. A complete history and physical examination was performed. 1014: Sodium Chloride 2000 ml @ 999 mls/hr IV 1219: Upon reevaluation, the patient is doing well.I discussed my findings with the patient and she understands and agrees with the treatment plan. Based on the patients age, coexisting illnesses, exam and lab findings the decision to treat as an inpatient was made. The patient remained stable while under my care. The patient will be evaluated for further management. 1249: I reviewed the patient's case with Dr. Craig. He will evaluate the patient for further management. Medical Decision Differential diagnoses includes but is not limited to toxic, metabolic, infectious, traumatic, cardiac, neurologic, hematologic, psychiatric and inflammatory etiologies. Patient is a 36-year-old female who presents to ER for right upper extremity weakness that has been present for the past several days associated with paresthesias in that extremity and in the left lower extremity. Family also admits to intermittent slurred speech and confusion. Patient is currently neurologically intact with the exception of weakness in the right upper extremity. CT head was negative. CBC, BMP, LFTs, lipase and UA was unremarkable. Preg was negative. Chest x-ray was unremarkable. Due to the numbness and weakness in the upper extremity was concerning for CVA. Also considered MS and other neurologic etiologies. As she is too weak to go home and with her focal weakness of felt it was prudent to have patient evaluated as an inpatient. Medication Reconcilliation Current Medication List: was personally reviewed by me Blood Pressure Screening Patient's blood pressure: Normal blood pressure Consults Time Called: 1220 Consulting Physician: Dr. Craig Returned Call: [phone] I reviewed the patient's case with Dr. Craig. He will evaluate the patient for further management. Impression Primary Impression: Right arm weakness Additional Impressions: Cephalalgia Paresthesia Scribe Attestation The scribe's documentation has been prepared under my direction and personally reviewed by me in its entirety. I confirm that the note above accurately reflects all work, treatment, procedures, and medical decision making performed by me. Departure Information Dispostion Being Evaluated By Hospitalist Referrals Guillermo Fink M.D. (PCP) Patient Instructions My [facility] Problem Qualifiers Additional Impressions: Cephalalgia Headache type: unspecified Headache chronicity pattern: acute headache Intractability: not intractable Qualified Codes: R51 - Headache
[2017-09-20] MEDS ORDERED: LORAZEPAM 2 MG/ML 1 ML VIAL ONE (16:32)
--- NOTE | 2017-09-20 16:33 | DIAGNOSTIC IMAGING REPORT ---
CERVICAL SPINE 3 VIEWS CLINICAL HISTORY: Paresthesias. Left leg weakness. Tremors. FINDINGS: AP, lateral, and odontoid views of the cervical spine are correlated with MRI of the cervical spine dated 11/22/2015. The skeletal structures are well mineralized. There is no radiographic evidence of fracture or subluxation. The odontoid process and lateral masses appear intact on the open mouth view. The spinolaminar line is preserved. There is straightening of the cervical lordosis. Vertebral body height and alignment are maintained. The spinous processes appear intact. The intervertebral disc spaces are normal. The prevertebral soft tissues are within normal limits. Visualized apical lung parenchyma appears clear. IMPRESSION: Unremarkable radiographic assessment of the cervical spine. Electronically signed by: Alex Adler M.D. 09/20/2017 4:32 PM Dictated Date/Time: 09/20/2017 4:31 PM
--- NOTE | 2017-09-20 16:38 | DIAGNOSTIC IMAGING REPORT ---
LUMBAR SPINE RADIOGRAPHS CLINICAL HISTORY: Left leg weakness. Paresthesias. COMPARISON: Lumbar spine radiographs November 30, 2016.: FINDINGS: Alignment of the lumbar spine is anatomic. Vertebral body heights are maintained. No fracture is identified. Mild irregularity of the anterior aspect of the superior plate of L4 is chronic. Disc spaces are preserved. There is mild multilevel endplate osteophytosis. IMPRESSION: 1. No lumbar spine fracture or subluxation. 2. Mild multilevel endplate osteophytosis of the lumbar spine. Electronically signed by: Michelet Cifuentes M.D. 09/20/2017 4:37 PM Dictated Date/Time: 09/20/2017 4:36 PM
[2017-09-20] MEDS ORDERED: LORAZEPAM INJ 1 MG in SYRINGE 0.5 ML IV SCH (17:00)
[2017-09-20] MEDS ORDERED: GADAVIST IV PRN (17:30)
[2017-09-20] MEDS: SUMATRIPTAN SUCCINATE 50 MG TAB PO PRN (17:40)
--- NOTE | 2017-09-20 17:40 | DIAGNOSTIC IMAGING REPORT ---
MRI OF THE BRAIN WITHOUT AND WITH IV CONTRAST CLINICAL HISTORY: Paresthesias. Right hand numbness. Left leg numbness. Tremors. COMPARISON STUDY: MRI of the brain December 30, [address] September 20, 2017. TECHNIQUE: Utilizing a 1.5 Chiquita magnet and dedicated coil, multiplanar, multiecho imaging of the brain was performed pre and postcontrast administration. IV administration of 10 mL of Gadavist contrast was uneventful. FINDINGS: There are no foci of restricted diffusion. No acute intracranial hemorrhage, midline shift or mass effect is present. Ventricular system is normal. There are post surgical findings consistent with a suboccipital craniectomy for Chiari decompression. 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 The postoperative appearance is unchanged. There is a partially empty sella. No intracranial mass or pathologic enhancement is present. Flow-voids for the major intracranial vessels are present. Orbits are unremarkable. Sinuses are unremarkable with the exception of mild mucosal thickening of the right maxillary sinus. Mastoid air cells are unremarkable. A 3 mm right matter T2 hyperintense focus within the left frontal lobe is unchanged since MRI of December 11, 2015 and is of doubtful significance. No new foci of parenchymal signal abnormality are present. IMPRESSION: 1. No acute intracranial findings. 2. No change in appearance of the brain since exam of December 30, 2016. 3. Stable postoperative findings consistent with a suboccipital craniectomy for Chiari decompression with cerebellar tonsillar ectopia. Electronically signed by: Michelet Cifuentes M.D. 09/20/2017 5:39 PM Dictated Date/Time: 09/20/2017 5:32 PM
[2017-09-20] MEDS ORDERED: SODIUM CHLORIDE 0.65% NA SOLN 45 ML (OCEAN) PRN ×2 (18:00)
[2017-09-20] MEDS ORDERED: NURSING VERBAL MED ORDER ONE ×2 (18:00→22:30)
[2017-09-20] MEDS: AMOXICILLIN/CLAVULANATE TAB 875 MG TAB PO SCH (18:14)
[2017-09-20] MEDS: SODIUM CHLORIDE 0.9% 1000ML 1,000 ML IV SCH (18:15)
[2017-09-20 19:36] VITALS: BP 130/80; PULSE 83; TEMP 36.7; O2SAT 95
[2017-09-20 19:37] VITALS: BP_SYST 125; BP_SYST 131; BP_DIAS 84; BP_DIAS 85; PULSE 85; PULSE 97
[2017-09-20] MEDS ORDERED: AMOXICILLIN 875 MG PO SCH (21:00)
[2017-09-20] MEDS: TOPIRAMATE 25 MG TAB PO SCH (21:38)
[2017-09-20] MEDS: RANITIDINE HCL 150 MG TAB PO SCH (21:38)
[2017-09-20 23:45] VITALS: BP 118/77; PULSE 84; TEMP 36.6; O2SAT 94
[2017-09-21] MEDS: SODIUM CHLORIDE 0.9% 1000ML 1,000 ML IV SCH ×2 (03:27→14:05)
[2017-09-21 03:30] VITALS: BP 120/76; PULSE 80; TEMP 36.8; O2SAT 96
[2017-09-21 05:07] VITALS: BP_SYST 129; BP_SYST 137; BP_SYST 142; BP_DIAS 81; BP_DIAS 86; BP_DIAS 87; PULSE 78; PULSE 90; PULSE 92; TEMP 36.6; O2SAT 98
[2017-09-21 06:20] LABS: HEMATOCRIT 37.6 % (37-47); HEMOGLOBIN 12.4 g/dL (12.0-16.0); MEAN CELL VOLUME 85.8 fL (80-100); MEAN CORPUSCULAR HEMOGLOBIN 28.3 pg (25-34); MEAN PLATELET VOLUME 10.7 fL (7.4-10.4); PLATELET COUNT 195 K/uL (130-400); RED CELL DISTRIBUTION WIDTH CV 13.5 % (11.5-14.5); RED CELL DISTRIBUTION WIDTH SD 42.4 fL (36.4-46.3); WHITE BLOOD COUNT 7.48 K/uL (4.8-10.8)
[2017-09-21 06:53] LABS: CREATININE 0.83 mg/dl (0.60-1.20); POTASSIUM 3.3 mmol/L (3.5-5.1)
[2017-09-21 07:35] VITALS: BP_SYST 122; BP_SYST 132; BP_SYST 134; BP_DIAS 68; BP_DIAS 76; PULSE 75; PULSE 76; TEMP 36.9; O2SAT 96
[2017-09-21] MEDS: RANITIDINE HCL 150 MG TAB PO SCH ×2 (08:06→20:48)
[2017-09-21] MEDS: AMOXICILLIN/CLAVULANATE TAB 875 MG TAB PO SCH ×2 (08:06→17:09)
[2017-09-21] MEDS: TOPIRAMATE 25 MG TAB PO SCH ×2 (08:07→20:48)
--- NOTE | 2017-09-21 09:38 | Neurology Consultation ---
Neurology Consultation Date of Consultation: Sep 21, 2017. Attending Physician: Oz Craig M.D. Primary Care Physician: Guillermo Fink M.D. Reason for Consultation: Change in neurological status History of Present Illness Source: patient, hospital records The patient is a 36-year-old female who presents with a variety of neurological symptoms including right hand tremor that began the night prior to admission, numbness of the left foot, lethargy, and difficulty walking. The right hand tremor is not present this morning. She also complains of a mild to moderate frontal headache which is been present for about the past week. She reports that she was recently diagnosed with a sinus infection and have been taking an antibiotic as well as prednisone. She continues to complain of circumferential numbness of the left foot extending up to just below the knee. She reports some associated weakness and difficulty walking. She denies experiencing any significant low back or spinal pain. Past medical history notable for Chiari I malformation with a history of suboccipital craniectomy. I have evaluated this patient during several previous admissions to the hospital (2015, 2014, in 2013 ) for a variety of neurological symptoms including dizziness, headache and confusion. She has had extensive imaging evaluations previously as well as a lumbar puncture completed in November 2015 which was complicated by development of a spinal headache. This patient's past medical history is also notable for an admission to the behavioral health unit in 2009 for depression with psychosis. A CT of the head completed upon presentation was unremarkable. No evidence of hemorrhage. There is evidence of a prior suboccipital craniectomy. I reviewed the images and radiologist's interpretation of the follow-up brain MRI as well. The study is also unremarkable. No evidence of acute or subacute process. There is evidence of cerebellar tonsillar ectopia as well as her prior suboccipital craniectomy. There is a partial empty sella. No significant parenchymal abnormality appreciated. Electrocardiogram reveals sinus rhythm, 88 bpm. Past Medical/Surgical History Medical Problems: (1) Cephalalgia Status: Acute (2) Change in mental status Status: Acute (3) Contusion of multiple sites Status: Acute (4) Contusion of right knee Status: Acute (5) Dehydration Status: Acute (6) Fall Status: Acute (7) Fall Status: Acute (8) Knee pain Status: Acute (9) Migraine headache Status: Acute (10) Paresthesia Status: Acute (11) Right arm weakness Status: Acute (12) Sinusitis, acute Status: Acute (13) Sleep deprivation Status: Acute (14) Syncope Status: Acute Family History Noncontributory Social History Smoking Status: Never smoker Smokeless Tobacco Use: No Alcohol Use: none Drug Use: none Marital Status: , other Housing Status: lives with family Occupation Status: employed Allergies Coded Allergies: Albuterol (Verified Allergy, Mild, PASS OUT, 09/20/17) Fish Allergy (Verified Allergy, Unknown, SEAFOOD ALLERGY, 09/20/17) PASS OUT Current Inpatient Medications Current Inpatient Medications Medications (Trade) Dose Ordered Sig/Lelia Route Start Time Stop Time Status Last Admin Dose Admin Sodium Chloride 1,000 ml @ 100 mls/hr Q10H IV 09/20/17 13:29 10/20/17 13:28 09/21/17 03:27 100 MLS/HR Acetaminophen (Tylenol Tab) 650 mg Q4H PRN PO 09/20/17 13:30 10/20/17 13:29 09/21/17 08:06 650 MG Meclizine HCl (Antivert Tab) 25 mg TID PRN PO 09/20/17 14:00 10/20/17 13:59 Ranitidine HCl (zANTac TAB) 150 mg BID PO 09/20/17 21:00 10/20/17 20:59 09/21/17 08:06 150 MG Sumatriptan Succinate (Imitrex Tab) 50 mg DAILY PRN PO 09/20/17 14:00 10/20/17 13:59 09/20/17 17:40 50 MG Topiramate (Topamax Tab) 25 mg BID PO 09/20/17 21:00 10/20/17 20:59 09/21/17 08:07 25 MG Amoxicillin/ Clavulanate Potassium (Augmentin Tab) 875 mg BIDM PO 09/20/17 17:00 09/23/17 19:00 09/21/17 08:06 875 MG Gadobutrol (Gadavist) 10 mmol UD PRN IV 09/20/17 17:30 09/24/17 17:29 Sodium Chloride ([place] Nasal [place]) 2 sprays PRN PRN NA 09/20/17 18:00 10/20/17 17:59 09/20/17 18:22 2 SPRAYS Review of Systems Constitutional: No fever or chills Eyes: No vision loss or diplopia ENT: No hearing loss or vertigo Cardiovascular: No chest pain or palpitations Respiratory: No coughing wheezing or shortness of breath Neurological: As per history of present illness A full 10 point review of systems was obtained from this patient with pertinent positives and negatives as described in history of present illness otherwise as above. All other systems reviewed and are negative. Physical Exam Vital Signs (Past 24 Hrs): Date Time Temp Pulse Resp B/P (MAP) Pulse Ox O2 Delivery O2 Flow Rate FiO2 09/21/17 07:35 36.9 76 16 122/68 (86) 96 Room Air 75 132/76 (94) 75 134/76 (95) 09/21/17 05:07 36.6 78 20 129/81 (97) 98 Room Air 90 137/87 (104) 92 142/86 (104) 09/21/17 04:00 Room Air 09/21/17 03:30 36.8 80 16 120/76 (91) 96 Room Air 09/21/17 00:00 Room Air 09/20/17 23:45 36.6 84 20 118/77 (91) 94 Room Air 09/20/17 20:00 Room Air 09/20/17 19:37 97 131/85 (100) 09/20/17 19:37 85 125/84 (98) 09/20/17 19:36 36.7 83 18 130/80 (97) 95 09/20/17 13:58 93 16 129/76 97 Room Air 09/20/17 13:22 97 Room Air 09/20/17 12:31 85 09/20/17 12:09 86 20 137/88 97 Room Air 09/20/17 11:12 92 16 143/87 96 Room Air 09/20/17 10:05 82 09/20/17 10:00 85 16 122/97 98 Room Air 09/20/17 09:14 37.0 94 18 127/77 99 Room Air The patient is a well-developed, well-nourished female. She is sitting up in bed in no acute distress. Recent and remote memory intact. Attention and concentration normal. Patient exhibits normal spontaneous speech pattern and age appropriate fund of knowledge. Visual layton full to confrontation. Visual acuity normal. Pupils equal round reactive to light and accommodation. Eye movements normal. Facial sensation intact. Is normal facial symmetry and strength. Hearing intact bilaterally. Palate elevates to midline. Shoulder shrug intact. Tongue protrudes to midline. The patient reports a sensory loss to vibration, light touch, temperature, and proprioception affecting the left foot. She reports complete anesthesia to all modalities affecting the left foot and extending up to the left knee. Deep tendon reflexes are intact and symmetrical. Plantar responses downgoing bilaterally. There is no dysdiadochokinesia or dysmetria of finger to nose or heel to muir bilaterally. Ophthalmoscopic examination reveals normal-appearing optic disks and posterior segments. No papilledema or hemorrhages. Carotid pulses normal bilaterally, no bruits to auscultation. Patient exhibits a limping type gait. She is very tentative with the left foot and does not bear weight. She denies pain, however. Patient is able to stand on her toes and heels but seems to easily lose her balance with this maneuver. Muscle strength seems to be full in all 4 limbs proximally and distally. However, the patient does exhibit some give way weakness affecting the left foot and ankle with both dorsiflexion and plantar flexion. Muscle tone normal throughout. No atrophy. No abnormal movements observed. Laboratory Results Past 24 Hours: 09/21/17 05:59 09/21/17 05:59 Test 09/20/17 09:55 09/20/17 10:30 09/21/17 05:59 Immature Granulocyte % (Auto) 0.3 % White Blood Count 9.43 K/uL (4.8-10.8) Red Blood Count 4.86 M/uL (4.2-5.4) 4.38 M/uL (4.2-5.4) Hemoglobin 14.0 g/dL (12.0-16.0) Hematocrit 41.1 % (37-47) Mean Corpuscular Volume 84.6 fL (80-100) 85.8 fL (80-100) Mean Corpuscular Hemoglobin 28.8 pg (25-34) 28.3 pg (25-34) Mean Corpuscular Hemoglobin Concent 34.1 g/dl (32-36) 33.0 g/dl (32-36) Platelet Count 236 K/uL (130-400) Mean Platelet Volume 10.9 fL (7.4-10.4) 10.7 fL (7.4-10.4) Neutrophils (%) (Auto) 80.2 % Lymphocytes (%) (Auto) 13.1 % Monocytes (%) (Auto) 5.7 % Eosinophils (%) (Auto) 0.5 % Basophils (%) (Auto) 0.2 % Neutrophils # (Auto) 7.55 K/uL (1.4-6.5) Lymphocytes # (Auto) 1.24 K/uL (1.2-3.4) Monocytes # (Auto) 0.54 K/uL (0.11-0.59) Eosinophils # (Auto) 0.05 K/uL (0-0.5) Basophils # (Auto) 0.02 K/uL (0-0.2) Immature Granulocyte # (Auto) 0.03 K/uL (0.00-0.02) Total Bilirubin 0.5 mg/dl (0.2-1) Direct Bilirubin 0.1 mg/dl (0-0.2) Aspartate Amino Transf (AST/SGOT) 8 U/L (15-37) Alanine Aminotransferase (ALT/SGPT) 12 U/L (12-78) Alkaline Phosphatase 92 U/L (45-117) Troponin I < 0.015 ng/ml (0-0.045) Total Protein 7.6 gm/dl (6.4-8.2) Albumin 3.9 gm/dl (3.4-5.0) Globulin 3.7 gm/dl (2.5-4.0) Albumin/Globulin Ratio 1.0 (0.9-2) Lipase 145 U/L (73-393) Urine Color YELLOW Urine Appearance CLEAR (CLEAR) Urine pH 6.5 (4.5-7.5) Urine Specific [place] 1.022 (1.000-1.030) Urine Protein NEG (NEG) Urine Glucose (UA) NEG (NEG) Urine Ketones NEG (NEG) Urine Occult Blood NEG (NEG) Urine Nitrite NEG (NEG) Urine Bilirubin NEG (NEG) Urine Urobilinogen NEG (NEG) Urine Leukocyte Esterase NEG (NEG) Urine WBC (Auto) 1-5 /hpf (0-5) Urine RBC (Auto) 0-4 /hpf (0-4) Urine Hyaline Casts (Auto) 1-5 /lpf (0-5) Urine Epithelial Cells (Auto) 10-20 /lpf (0-5) Urine Bacteria (Auto) NEG (NEG) Urine Test NEG (NEG) RDW Standard Deviation 42.4 fL (36.4-46.3) RDW Coefficient of Variation 13.5 % (11.5-14.5) Anion Gap 6.0 mmol/L (3-11) Est Creatinine Clear Calc Drug Dose 106.5 ml/min Estimated GFR () 105.9 Estimated GFR (Non- 91.4 BUN/Creatinine Ratio 16.7 (10-20) Calcium Level 8.0 mg/dl (8.5-10.1) Impression Is a 36-year-old female who presents with a frontal headache which is been present for the past week potentially related to a sinus infection which is been treated with antibiotics and a corticosteroid recently. She more recently developed a tremor of the right hand which appears to have completely resolved. She does not have any signs or symptoms of essential tremor, augmented physiologic tremor, Parkinson's disease at this time. The cause of her resolved tremor remains undetermined. This patient continues to complain of complete anesthesia affecting the distal left lower extremity extending from the toes up to the knee. The cause of this numbness and associated gait dysfunction remains undetermined. The differential diagnosis would include transverse myelitis, lumbar radiculopathy, or peroneal neuropathy. However, she does not complain of low back or spinal pain which would probably make transverse myelitis and lumbar radiculopathy unlikely. Further, her deep tendon reflexes are intact and symmetrical which would make transverse myelitis or an other BANK CASHIER process unlikely. Also, the numbness of peroneal neuropathy typically just involves the lateral aspect of the distal lower limb and sometimes the interspace between the first and second toe. This patient's pattern of numbness is circumferential which would not typically encountered in peroneal neuropathy. Ultimately, this patient may have a functional or conversion disorder. Plan This patient will need an MRI of the cervical, thoracic, and lumbar spine to exclude transverse myelitis and/or a significant lumbar disc herniation that may otherwise explain her persistent left lower extremity numbness and associated weakness. She may need an outpatient EMG/NCV of the left lower limb as well. I do not have any specific treatment recommendations for this patient other than physical therapy and occupational therapy consultations. If this patient's spinal MRIs are unremarkable I would have no further immediate recommendations.
[2017-09-21 11:32] VITALS: BP 129/78; PULSE 70; TEMP 36.9; O2SAT 96
[2017-09-21] MEDS ORDERED: LORAZEPAM 1 MG TAB PO SCH (13:00)
--- NOTE | 2017-09-21 14:58 | Progress Note ---
Subjective Date of Service: Sep 21, 2017. Subjective Pt evaluation today including: conversation w/ patient, conversation w/ family (partner), physical exam, lab review, review of studies, conversation w/ training consultant, review of inpatient medication list Pain: headache, moderate PO Intake: adequate Voiding: no voiding problems patient still feels weak, difficulty ambulating very weak left lower extremity PT recommending rehab, she is agreeable appreciate consult from Dr. Sparks, recommends MRI cervical, thoracic and lumbar spine to look for transverse myelitis as etiology of symptoms patient reluctant to get MRI, prefers open MRI strongly encouraged her to get MRI here to see if we can get a diagnosis MRI would occur tonight, she said she would try, Ativan ordered + headache, relieved with Tylenol, she will use Imitrex at home Problem List Medical Problems: (1) Cephalalgia Status: Acute (2) Change in mental status Status: Acute (3) Contusion of multiple sites Status: Acute (4) Contusion of right knee Status: Acute (5) Dehydration Status: Acute (6) Fall Status: Acute (7) Fall Status: Acute (8) Knee pain Status: Acute (9) Migraine headache Status: Acute (10) Paresthesia Status: Acute (11) Right arm weakness Status: Acute (12) Sinusitis, acute Status: Acute (13) Sleep deprivation Status: Acute (14) Syncope Status: Acute Review of Systems Constitutional: + weakness, + problem reported (headache) Neurologic: + weakness (left lower extremity, right upper extremity) All Other Systems: Reviewed and Negative Medications Current Inpatient Medications Medications (Trade) Dose Ordered Sig/Lelia Route Start Time Stop Time Status Last Admin Dose Admin Sodium Chloride 1,000 ml @ 100 mls/hr Q10H IV 09/20/17 13:29 10/20/17 13:28 09/21/17 14:05 100 MLS/HR Acetaminophen (Tylenol Tab) 650 mg Q4H PRN PO 09/20/17 13:30 10/20/17 13:29 09/21/17 08:06 650 MG Meclizine HCl (Antivert Tab) 25 mg TID PRN PO 09/20/17 14:00 10/20/17 13:59 Ranitidine HCl (zANTac TAB) 150 mg BID PO 09/20/17 21:00 10/20/17 20:59 09/21/17 08:06 150 MG Sumatriptan Succinate (Imitrex Tab) 50 mg DAILY PRN PO 09/20/17 14:00 10/20/17 13:59 09/20/17 17:40 50 MG Topiramate (Topamax Tab) 25 mg BID PO 09/20/17 21:00 10/20/17 20:59 09/21/17 08:07 25 MG Amoxicillin/ Clavulanate Potassium (Augmentin Tab) 875 mg BIDM PO 09/20/17 17:00 09/23/17 19:00 09/21/17 08:06 875 MG Gadobutrol (Gadavist) 10 mmol UD PRN IV 09/20/17 17:30 09/24/17 17:29 Sodium Chloride ([place] Nasal [place]) 2 sprays PRN PRN NA 09/20/17 18:00 10/20/17 17:59 09/20/17 18:22 2 SPRAYS Lorazepam (Ativan Tab) 1 mg TODAY@1300 PO 09/21/17 13:00 09/21/17 23:59 09/21/17 12:45 1 MG Objective Vital Signs Date Time Temp Pulse Resp B/P (MAP) Pulse Ox O2 Delivery O2 Flow Rate FiO2 09/21/17 12:00 Room Air 09/21/17 11:32 36.9 70 16 129/78 (95) 96 Room Air 09/21/17 08:00 Room Air 09/21/17 07:35 36.9 76 16 122/68 (86) 96 Room Air 75 132/76 (94) 75 134/76 (95) 09/21/17 05:07 36.6 78 20 129/81 (97) 98 Room Air 90 137/87 (104) 92 142/86 (104) 09/21/17 04:00 Room Air 09/21/17 03:30 36.8 80 16 120/76 (91) 96 Room Air 09/21/17 00:00 Room Air 09/20/17 23:45 36.6 84 20 118/77 (91) 94 Room Air 09/20/17 20:00 Room Air 09/20/17 19:37 97 131/85 (100) 09/20/17 19:37 85 125/84 (98) 09/20/17 19:36 36.7 83 18 130/80 (97) 95 Physical Exam General Appearance: WD/WN, no apparent distress Eyes: normal inspection, EOMI, sclerae normal ENT: normal ENT inspection, hearing grossly normal, pharynx normal Neck: supple, no adenopathy, no JVD, trachea midline Respiratory/Chest: chest non-tender, lungs clear, normal breath sounds, no respiratory distress, no accessory muscle use Cardiovascular: regular rate, rhythm, no edema, no gallop, no JVD, no murmur Abdomen: normal bowel sounds, non tender, soft, no organomegaly Extremities: normal range of motion, non-tender, normal inspection, no pedal edema, no calf tenderness, pelvis stable Neurologic/Psychiatric: reception 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, alert, oriented x 3, + motor weakness (slight weakness in left foot, otherwise strength intact), + sensory deficit (light touch, proprioreception and vibration loss in left foot), + pertinent finding (anxious) Skin: normal color, warm/dry, no rash Laboratory Results Last 24 Hours Test 09/21/17 05:59 White Blood Count 7.48 K/uL Red Blood Count 4.38 M/uL Hemoglobin 12.4 g/dL Hematocrit 37.6 % Mean Corpuscular Volume 85.8 fL Mean Corpuscular Hemoglobin 28.3 pg Mean Corpuscular Hemoglobin Concent 33.0 g/dl RDW Standard Deviation 42.4 fL RDW Coefficient of Variation 13.5 % Platelet Count 195 K/uL Mean Platelet Volume 10.7 fL Sodium Level 137 mmol/L Potassium Level 3.3 mmol/L Chloride Level 110 mmol/L Carbon Dioxide Level 21 mmol/L Anion Gap 6.0 mmol/L Blood Urea Nitrogen 14 mg/dl Creatinine 0.83 mg/dl Est Creatinine Clear Calc Drug Dose 106.5 ml/min Estimated GFR () 105.9 Estimated GFR (Non- 91.4 BUN/Creatinine Ratio 16.7 Random Glucose 85 mg/dl Calcium Level 8.0 mg/dl Assessment and Plan Ms. Land is a 36 year old woman here for asymmetrical weakness, unwitnessed syncope, and altered neurological status Altered neurological status, asymmetrical weakness, syncope patient alert and conversive today, still feels weak on left side, no further syncope MRI brain stable compared to December 2016, shows post operative changes from suboccipital craniotomy most significant finding is left foot numbness, poor balance Dr. Sparks recommends MRI cervical, thoracic and lumbar spine patient not sure she will tolerate closed MRI, Ativan ordered PT recommends rehab, patient open to this, will need to refer to [facility] Sinus infection - continue Augmentin - per outpatient records last day of therapy is 09/23 for 10 day course Hx migraine - continue home scheduled Topamax and sumatriptan prn GERD - continue ranitidine Full code, SCDs
[2017-09-21] MEDS ORDERED: LORAZEPAM INJ 0.5 MG in SYRINGE 0.25 ML IV SCH (15:00)
[2017-09-21] MEDS ORDERED: LORAZEPAM IV SCH (16:00)
[2017-09-21 16:04] VITALS: BP_SYST 121; BP_SYST 132; BP_SYST 144; BP_DIAS 77; BP_DIAS 85; BP_DIAS 88; PULSE 78; TEMP 36.7; O2SAT 100
[2017-09-21] MEDS: SUMATRIPTAN SUCCINATE 50 MG TAB PO PRN (17:32)
[2017-09-21 20:08] VITALS: BP 103/66; PULSE 91; TEMP 36.9; O2SAT 98
[2017-09-22] VITALS (8 sets, daily range): BP systolic 91–124; BP diastolic 58–86; PULSE 80–103; TEMP 36.7–37.2; O2SAT 97–100
[2017-09-22] MEDS: SODIUM CHLORIDE 0.9% 1000ML 1,000 ML IV SCH ×2 (00:27→09:58)
[2017-09-22 06:23] LABS: HEMATOCRIT 37.3 % (37-47); HEMOGLOBIN 12.6 g/dL (12.0-16.0); MEAN CELL VOLUME 85.6 fL (80-100); MEAN CORPUSCULAR HEMOGLOBIN 28.9 pg (25-34); MEAN CORPUSCULAR HGB CONC 33.8 g/dl (32-36); PLATELET COUNT 183 K/uL (130-400); RED CELL DISTRIBUTION WIDTH CV 13.4 % (11.5-14.5); RED CELL DISTRIBUTION WIDTH SD 41.7 fL (36.4-46.3); WHITE BLOOD COUNT 7.46 K/uL (4.8-10.8)
[2017-09-22 06:50] LABS: CREATININE 0.88 mg/dl (0.60-1.20); POTASSIUM 3.5 mmol/L (3.5-5.1)
[2017-09-22] MEDS: RANITIDINE HCL 150 MG TAB PO SCH ×2 (07:40→20:00)
[2017-09-22] MEDS: TOPIRAMATE 25 MG TAB PO SCH ×2 (07:40→20:00)
[2017-09-22] MEDS: AMOXICILLIN/CLAVULANATE TAB 875 MG TAB PO SCH ×2 (07:40→17:24)
--- NOTE | 2017-09-22 10:27 | Neurology Progress Notes ---
Neurology Progress Note Date of Service Sep 22, 2017. Subjective Follow-up for left lower extremity numbness and weakness The patient continues to complain of persistent, distal, left lower extremity numbness and associated weakness. Symptom is unchanged compared with yesterday. She denies any associated pain in the limb, swelling, or pain in the low back or spine. She denies any headache. She has not had a recurrence of her right upper extremity tremor. MRI of the cervical, thoracic, and lumbar spine has been ordered and is pending. Recently completed brain MRI reveals chronic postoperative changes related to a prior suboccipital craniectomy for Chiari I malformation. Objective Date Time Temp Pulse Resp B/P (MAP) Pulse Ox O2 Delivery O2 Flow Rate FiO2 09/22/17 07:50 Room Air 09/22/17 07:48 36.9 94 18 118/77 (91) 99 09/22/17 04:15 36.8 87 16 103/67 (79) 97 Room Air 09/22/17 04:00 Room Air 09/22/17 00:12 36.7 80 16 106/72 (83) 98 Room Air 102/69 (80) 105/72 (83) 09/22/17 00:00 Room Air 09/21/17 20:08 36.9 91 18 103/66 (78) 98 Room Air 09/21/17 20:00 Room Air 09/21/17 16:04 36.7 78 18 121/77 (92) 100 Room Air 132/85 (101) 144/88 (106) 09/21/17 16:00 Room Air 09/21/17 12:00 Room Air 09/21/17 11:32 36.9 70 16 129/78 (95) 96 Room Air Last 24 Hours Test 09/22/17 05:42 White Blood Count 7.46 K/uL Red Blood Count 4.36 M/uL Hemoglobin 12.6 g/dL Hematocrit 37.3 % Mean Corpuscular Volume 85.6 fL Mean Corpuscular Hemoglobin 28.9 pg Mean Corpuscular Hemoglobin Concent 33.8 g/dl RDW Standard Deviation 41.7 fL RDW Coefficient of Variation 13.4 % Platelet Count 183 K/uL Mean Platelet Volume 11.0 fL Sodium Level 139 mmol/L Potassium Level 3.5 mmol/L Chloride Level 113 mmol/L Carbon Dioxide Level 21 mmol/L Anion Gap 5.0 mmol/L Blood Urea Nitrogen 10 mg/dl Creatinine 0.88 mg/dl Est Creatinine Clear Calc Drug Dose 101.5 ml/min Estimated GFR () 98.7 Estimated GFR (Non- 85.1 BUN/Creatinine Ratio 11.1 Random Glucose 90 mg/dl Calcium Level 8.0 mg/dl Exam: The patient is lying comfortably in bed. She is in no acute distress. She is alert and fully oriented. Attention and concentration normal. Patient exhibits a normal spontaneous speech pattern. Visual layton full to confrontation. Visual acuity normal. Pupils equal round reactive to light and accommodation. Eye movements normal. There is normal facial symmetry and strength. The patient continues to report profound sensory loss to all modalities affecting the distal left lower extremity extending from the toes up to the knee. The sensory loss is circumferential. Interestingly, the patient did report sensory loss to the distal right lower extremity at one point during my examination but then quickly corrected her responses when I indicated that I was touching her right leg. She made no further mistakes with the right leg. The patient continues to exhibit a moderate to severe degree of weakness affecting the distal left lower extremity as well. She exhibits weakness with foot plantar flexion and dorsiflexion at the ankle as well as foot inversion and eversion. The weakness is profound and flaccid at times but at other times she does seem to have brief normal movement of the limb. When asked to perform heel to muir maneuvers on the left, the patient was apparently unable to lift the left lower limb out of bed to any degree. The leg was apparently motionless when asked to do this maneuver. However, with direct muscle strength testing, the patient was later able to lift the left leg out of the bed briefly against gravity. Deep tendon reflexes are normoactive and symmetric throughout. Plantar responses downgoing bilaterally. Current Inpatient Medications Medications (Trade) Dose Ordered Sig/Lelia Route Start Time Stop Time Status Last Admin Dose Admin Sodium Chloride 1,000 ml @ 100 mls/hr Q10H IV 09/20/17 13:29 10/20/17 13:28 09/22/17 09:58 100 MLS/HR Acetaminophen (Tylenol Tab) 650 mg Q4H PRN PO 09/20/17 13:30 10/20/17 13:29 09/21/17 08:06 650 MG Meclizine HCl (Antivert Tab) 25 mg TID PRN PO 09/20/17 14:00 10/20/17 13:59 Ranitidine HCl (zANTac TAB) 150 mg BID PO 09/20/17 21:00 10/20/17 20:59 09/22/17 07:40 150 MG Sumatriptan Succinate (Imitrex Tab) 50 mg DAILY PRN PO 09/20/17 14:00 10/20/17 13:59 09/21/17 17:32 50 MG Topiramate (Topamax Tab) 25 mg BID PO 09/20/17 21:00 10/20/17 20:59 09/22/17 07:40 25 MG Amoxicillin/ Clavulanate Potassium (Augmentin Tab) 875 mg BIDM PO 09/20/17 17:00 09/23/17 19:00 09/22/17 07:40 875 MG Gadobutrol (Gadavist) 10 mmol UD PRN IV 09/20/17 17:30 09/24/17 17:29 Sodium Chloride ([place] Nasal [place]) 2 sprays PRN PRN NA 09/20/17 18:00 10/20/17 17:59 09/20/17 18:22 2 SPRAYS Impression This patient continues to report profound sensory loss to the distal left lower extremity extending up to the knee With some associated weakness. There are several inconsistencies in her examination, however, as described above. I have some suspicion for factitious disorder. However, I'm unable to exclude transverse myelitis or a more peripheral nerve lesion at this time. Plan MRI of the cervical spine, thoracic spine, and lumbar spine as ordered. This testing should be completed today. If the above testing is unrevealing this patient will need an outpatient EMG/ NCV of the left lower limb. I would also consider obtaining arterial and venous Dopplers of the left lower limb.
[2017-09-22] MEDS ORDERED: HYDROmorphone INJ 1 MG/ML SYR IV STA ×2 (15:23→20:03)
[2017-09-22] MEDS ORDERED: DIAZEPAM 5MG TAB PO ONE ×2 (15:40→20:00)
--- NOTE | 2017-09-22 19:57 | Progress Note ---
Subjective Date of Service: Sep 22, 2017. Subjective Pt evaluation today including: conversation w/ patient, conversation w/ family (fiance), physical exam, chart review, lab review, review of studies (BRAIN MRI) , review of inpatient medication list Pain: none PO Intake: normal Voiding: no voiding problems continues to have left ankle/foot numbness that extends proximally to the muir she also has weakness of BOTH dorsiflexion/plantarflexion of the left foot/ankle right hand numbness persists very tearful during the visit and anxious about getting MRIs due to claustrophobia Problem List Medical Problems: (1) Cephalalgia Status: Acute (2) Change in mental status Status: Acute (3) Contusion of multiple sites Status: Acute (4) Contusion of right knee Status: Acute (5) Dehydration Status: Acute (6) Fall Status: Acute (7) Fall Status: Acute (8) Knee pain Status: Acute (9) Migraine headache Status: Acute (10) Paresthesia Status: Acute (11) Right arm weakness Status: Acute (12) Sinusitis, acute Status: Acute (13) Sleep deprivation Status: Acute (14) Syncope Status: Acute Review of Systems Constitutional: No fever Respiratory: No wheezing, No shortness of breath Cardiac: No chest pain Abdomen: No pain Objective Vital Signs Date Time Temp Pulse Resp B/P (MAP) Pulse Ox O2 Delivery O2 Flow Rate FiO2 09/22/17 16:00 100 Room Air 09/22/17 15:53 36.7 91 18 107/72 (84) 100 Room Air 124/84 (97) 123/86 (98) 09/22/17 12:00 Room Air 09/22/17 11:28 36.9 94 18 122/80 (94) 100 09/22/17 07:50 Room Air 09/22/17 07:48 36.9 94 18 118/77 (91) 99 09/22/17 04:15 36.8 87 16 103/67 (79) 97 Room Air 09/22/17 04:00 Room Air 09/22/17 00:12 36.7 80 16 106/72 (83) 98 Room Air 102/69 (80) 105/72 (83) 09/22/17 00:00 Room Air 09/21/17 20:08 36.9 91 18 103/66 (78) 98 Room Air 09/21/17 20:00 Room Air Physical Exam General Appearance: no apparent distress, + obese ENT: pharynx normal Neck: no JVD Respiratory/Chest: lungs clear, no respiratory distress, no accessory muscle use Cardiovascular: regular rate, rhythm, no gallop, no murmur Abdomen: normal bowel sounds, non tender, soft, no organomegaly Extremities: no pedal edema Neurologic/Psychiatric: alert, oriented x 3, + pertinent finding (patient has both loss of dorsiflexion and plantarflexion of the left foot/ankle; the right foot/ankle motor function is intact; oddly, she also has loss of motor extension at the level of the left knee but hip flexion strength is 5/5 on left ; handgrip is 5/5 bilaterally. RLE strength is 5/5 in all muscles. ) Laboratory Results Last 24 Hours Test 09/22/17 05:42 White Blood Count 7.46 K/uL Red Blood Count 4.36 M/uL Hemoglobin 12.6 g/dL Hematocrit 37.3 % Mean Corpuscular Volume 85.6 fL Mean Corpuscular Hemoglobin 28.9 pg Mean Corpuscular Hemoglobin Concent 33.8 g/dl RDW Standard Deviation 41.7 fL RDW Coefficient of Variation 13.4 % Platelet Count 183 K/uL Mean Platelet Volume 11.0 fL Sodium Level 139 mmol/L Potassium Level 3.5 mmol/L Chloride Level 113 mmol/L Carbon Dioxide Level 21 mmol/L Anion Gap 5.0 mmol/L Blood Urea Nitrogen 10 mg/dl Creatinine 0.88 mg/dl Est Creatinine Clear Calc Drug Dose 101.5 ml/min Estimated GFR () 98.7 Estimated GFR (Non- 85.1 BUN/Creatinine Ratio 11.1 Random Glucose 90 mg/dl Calcium Level 8.0 mg/dl Assessment and Plan 36yo female - 1. left foot motor weakness - I agree w/ Dr. Sparks that her examination is odd. A lumbar radiculopathy would explain a foot drop but the loss of BOTH dorsiflexion and plantarflexion is unusual. The right hand numbness doesn't seem to fit with her LLE complaints either. She did have a low-normal B12 level earlier in 2017 and I will repeat this in the AM. The patient has a c-spine, t-spine, and l-spine MRI ordered but reported she would not be able to complete all 3 at once due to extreme claustrophobia. She was agreeable, with the help of valium and pain meds, to attempt at least one MRI study; in light of leg complaints will get the l-spine first. 2. DVT proph - lovenox 40mg daily ordered. 3. 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 4. FEN - stop fluids. Diet as tolerated. Low K has corrected. 5. h/o migraine headaches - cont topamax for prophylaxis. 6. gait disturbance due to #1 - PT, OT; both modalities recommending rehab. 7. hypokalemia - resolved. 8. sinusitis - finish augmentin course. 9. morbid obesity, BMI 42 - noted. fiance updated at bedside Continued [facility] stay due to: ambulation difficulties, multiple IV medications needed Discharge planning: uncertain
[2017-09-22] MEDS ORDERED: GADAVIST IV PRN (21:45)
--- NOTE | 2017-09-22 22:31 | DIAGNOSTIC IMAGING REPORT ---
MRI OF THE LUMBAR SPINE WITH AND WITHOUT CONTRAST CLINICAL HISTORY: Left leg weakness following recent fall. Tremors. Evaluate for disc herniation. COMPARISON STUDY: Lumbar spine radiographs September 20, 2017. TECHNIQUE: Utilizing a 1.5 Chiquita magnet and dedicated coil, multiplanar, multiecho imaging of the lumbar spine was performed before and after uneventful IV administration of 10 mL of Gadavist. FINDINGS: For purposes of numbering on this exam, the L5-S1 disc space is assigned to axial image 27 of 30. Alignment of the lumbar spine is anatomic. Vertebral body heights are maintained. Conus terminates at the lower L1 level. There is no intracanalicular mass, fluid collection or abnormal enhancement. Paravertebral soft tissues are unremarkable. There is no suspicious marrow replacement. L1-2: The central canal in the neural foramen are patent. L2-3: The central canal and the neural foramen are patent. L3-4: The central canal and the neural foramen are patent. L4-5: The central canal and the neural foramen are patent. L5-S1: There is minimal disc bulge. Central canal and neural foramen are patent. IMPRESSION: 1. Minimal multilevel degenerative changes of the lumbar spine. Minimal disc bulge at L5-S1. Patent central canal and neural foramen. 2. No acute abnormality within the lumbar spine by MRI. Electronically signed by: Michelet Cifuentes M.D. 09/22/2017 10:29 PM Dictated Date/Time: 09/22/2017 10:21 PM
[2017-09-23] VITALS (9 sets, daily range): BP systolic 102–135; BP diastolic 68–88; PULSE 51–111; TEMP 36.6–36.9; O2SAT 88–100
[2017-09-23 06:17] LABS: PTT PATIENT 26.7 SECONDS (21.0-31.0)
[2017-09-23] MEDS: AMOXICILLIN/CLAVULANATE TAB 875 MG TAB PO SCH ×2 (08:54→16:49)
[2017-09-23] MEDS: RANITIDINE HCL 150 MG TAB PO SCH ×2 (08:54→20:47)
[2017-09-23] MEDS: TOPIRAMATE 25 MG TAB PO SCH ×2 (08:54→20:48)
[2017-09-23] MEDS: ENOXAPARIN 40 MG/0.4 ML SYR SQ SCH (08:55)
--- NOTE | 2017-09-23 10:24 | Neurology Progress Notes ---
Neurology Progress Note Date of Service Sep 23, 2017. Subjective Follow-up for left lower extremity numbness and weakness The patient denies any significant change in her left lower extremity numbness and weakness compared with yesterday. She continues to deny any associated pain in the leg or spine. She denies headache as well. MRI of the lumbar spine completed yesterday. Images and report reviewed. There is a minimal disc bulge at L5-S1. No significant central canal or foraminal stenosis. MRI of the cervical and thoracic spine pending. Objective Date Time Temp Pulse Resp B/P (MAP) Pulse Ox O2 Delivery O2 Flow Rate FiO2 09/23/17 09:00 36.9 103 18 125/84 (98) 100 09/23/17 07:48 36.9 71 18 120/79 (93) 99 94 129/84 (99) 83 125/83 (97) 09/23/17 04:00 36.7 72 16 109/68 (82) 98 Room Air 09/23/17 04:00 Room Air 09/23/17 00:02 36.8 51 16 111/70 (84) 93 Room Air 124/83 (97) 118/86 (97) 09/23/17 00:00 Room Air 09/22/17 20:18 37.2 103 18 91/58 (69) 100 09/22/17 20:00 100 Room Air 09/22/17 16:00 100 Room Air 09/22/17 15:53 36.7 91 18 107/72 (84) 100 Room Air 124/84 (97) 123/86 (98) 09/22/17 12:00 Room Air 09/22/17 11:28 36.9 94 18 122/80 (94) 100 Last 24 Hours Test 09/23/17 05:38 09/23/17 09:11 Prothrombin Time 10.4 SECONDS Prothromb Time International Ratio 1.0 Activated Partial Thromboplast Time 26.7 SECONDS Partial Thromboplastin Ratio 1.0 Erythrocyte Sedimentation Rate 10 mm/hr C-Reactive Protein 0.43 mg/dl Vitamin B12 Level 198 pg/mL Exam: The patient is alert and fully oriented. She is lying comfortably in bed in no acute distress. Visual layton full to confrontation. Visual acuity normal. Pupils equal round reactive to light and accommodation. Eye movements normal. There is no facial droop. Patient exhibits normal strength of both upper extremities as well as the right lower extremity. He continues to display moderate weakness of the left lower extremity with direct strength testing of various muscle groups. She is able to briefly lift the left leg out of the bed against gravity and is able to keep the left lower limb extended at the knee. She displays 0 out of 5 dorsiflexion and plantar flexion strength at the left ankle as well as 0 out of 5 inversion and eversion strength at the left ankle. The foot and ankle are not swollen or discolored and have normal temperature and normal pulses. Extensor strength at the left knee is a 3-4 out of 5. Flexor strength at the left hip 4 out of 5. Results of strength testing for the left lower limb remain inconsistent, however. At times during the examination the patient appears to move the left lower limb normally while at other times she appears to display complete flaccid paralysis of the limb. The patient continues to report complete anesthesia to all sensory modalities affecting the left lower limb circumferentially extending up to below the knee cap. Current Inpatient Medications Medications (Trade) Dose Ordered Sig/Lelia Route Start Time Stop Time Status Last Admin Dose Admin Acetaminophen (Tylenol Tab) 650 mg Q4H PRN PO 09/20/17 13:30 10/20/17 13:29 09/21/17 08:06 650 MG Meclizine HCl (Antivert Tab) 25 mg TID PRN PO 09/20/17 14:00 10/20/17 13:59 Ranitidine HCl (zANTac TAB) 150 mg BID PO 09/20/17 21:00 10/20/17 20:59 09/23/17 08:54 150 MG Sumatriptan Succinate (Imitrex Tab) 50 mg DAILY PRN PO 09/20/17 14:00 10/20/17 13:59 09/21/17 17:32 50 MG Topiramate (Topamax Tab) 25 mg BID PO 09/20/17 21:00 10/20/17 20:59 09/23/17 08:54 25 MG Amoxicillin/ Clavulanate Potassium (Augmentin Tab) 875 mg BIDM PO 09/20/17 17:00 09/23/17 19:00 09/23/17 08:54 875 MG Gadobutrol (Gadavist) 10 mmol UD PRN IV 09/20/17 17:30 09/24/17 17:29 Sodium Chloride ([place] Nasal [place]) 2 sprays PRN PRN NA 09/20/17 18:00 10/20/17 17:59 09/20/17 18:22 2 SPRAYS Enoxaparin Sodium (Lovenox Inj) 40 mg QAM SQ 09/23/17 09:00 10/23/17 08:59 09/23/17 08:55 40 MG Gadobutrol (Gadavist) 10 mmol UD PRN IV 09/22/17 21:45 09/26/17 21:44 Impression Distal left lower extremity sensory loss and weakness as described above. She continues to have inconsistencies in her examination potentially suggesting a functional problem. However, transverse myelitis and other spinal cord pathology may not be completely excluded in spite of her lack of upper motor neuron findings on examination. A more peripheral nerve lesion, sciatic neuropathy, may not be excluded although her pattern of sensory loss is more widespread than what should be encountered. Plan Proceed with the previously ordered cervical and thoracic spine MRIs Patient will need an outpatient EMG/nerve conduction study of the left lower extremity. PT/OT Case discussed with Dr. Chester
[2017-09-23] MEDS ORDERED: ONDANSETRON INJ 8 MG in DEXTROSE 5% 50ML 50 ML IV ONE (13:30)
[2017-09-23] MEDS: SUMATRIPTAN SUCCINATE 50 MG TAB PO PRN (14:21)
--- NOTE | 2017-09-23 14:21 | DIAGNOSTIC IMAGING REPORT ---
ABDOMEN 2VIEW W/PA CHEST RTN CLINICAL HISTORY: vomiting, eval for SBO COMPARISON STUDY: 09/20/2017 FINDINGS: The erect chest reveals no evidence of free air. There is no evidence of focal pulmonary consolidation.] Erect and supine views of the abdomen reveal no abnormally dilated loops of large or small bowel. There are no transition zone to indicate bowel obstruction. There is a 2 mm right mid abdominal calcification. This appears inferior to the right renal shadow, and therefore is unlikely represent a renal calculus. IMPRESSION: No evidence of bowel obstruction. No evidence of free air. Electronically signed by: Andre Weeks M.D. 09/23/2017 2:19 PM Dictated Date/Time: 09/23/2017 2:18 PM
[2017-09-23] MEDS: CYANOCOBALAMIN 1000 MCG/ML VIAL IM SCH (14:23)
[2017-09-23] MEDS ORDERED: BISACODYL 10 MG SUPP PR STA (15:19)
[2017-09-23] MEDS ORDERED: ONDANSETRON 8MG OD TAB PO ONE (15:30)
[2017-09-23] MEDS ORDERED: SUMATRIPTAN SUCCINATE 6 MG/0.5 ML VIAL SQ PRN (19:00)
[2017-09-23] MEDS ORDERED: DIAZEPAM 5MG TAB PO ONE (19:00)
--- NOTE | 2017-09-23 19:12 | Progress Note ---
Subjective Date of Service: Sep 23, 2017. Subjective Pt evaluation today including: conversation w/ patient, conversation w/ family (fiance), physical exam, chart review, lab review, review of studies (L spine MRI), conversation w/ clinical education consultant (neuro), review of inpatient medication list Pain: migraine headache PO Intake: ate well at B/L then had emesis after lunch Voiding: no voiding problems tele stable overnight still with numbness/weakness of LLE (foot/ankle) right hand numbness resolved developed migraine today about the same time as vomiting no bowel movement since prior to this hospital stay Problem List Medical Problems: (1) Cephalalgia Status: Acute (2) Change in mental status Status: Acute (3) Contusion of multiple sites Status: Acute (4) Contusion of right knee Status: Acute (5) Dehydration Status: Acute (6) Fall Status: Acute (7) Fall Status: Acute (8) Knee pain Status: Acute (9) Migraine headache Status: Acute (10) Paresthesia Status: Acute (11) Right arm weakness Status: Acute (12) Sinusitis, acute Status: Acute (13) Sleep deprivation Status: Acute (14) Syncope Status: Acute Review of Systems Constitutional: No fever, No chills Respiratory: No shortness of breath Abdomen: No pain Objective Vital Signs Date Time Temp Pulse Resp B/P (MAP) Pulse Ox O2 Delivery O2 Flow Rate FiO2 09/23/17 16:00 88 Room Air 09/23/17 15:33 36.8 86 18 131/88 (102) 98 09/23/17 12:00 Room Air 09/23/17 11:35 36.9 100 18 110/75 (87) 99 106 108/72 (84) 111 102/70 (81) 09/23/17 09:00 36.9 103 18 125/84 (98) 100 09/23/17 08:00 Room Air 09/23/17 07:48 36.9 71 18 120/79 (93) 99 94 129/84 (99) 83 125/83 (97) 09/23/17 04:00 36.7 72 16 109/68 (82) 98 Room Air 09/23/17 04:00 Room Air 09/23/17 00:02 36.8 51 16 111/70 (84) 93 Room Air 124/83 (97) 118/86 (97) 09/23/17 00:00 Room Air 09/22/17 20:18 37.2 103 18 91/58 (69) 100 09/22/17 20:00 100 Room Air Physical Exam General Appearance: no apparent distress ENT: pharynx normal Neck: no JVD Respiratory/Chest: lungs clear, no respiratory distress, no accessory muscle use Cardiovascular: regular rate, rhythm, no gallop, no murmur Abdomen: normal bowel sounds, non tender, soft, no organomegaly Extremities: no pedal edema Neurologic/Psychiatric: alert, oriented x 3, + motor weakness (left foot/ankle - dorsiflexion/plantarflexion still weak (unchanged exam from prior); right handgrip 5/5; RLE with normal strength ) Laboratory Results Last 24 Hours Test 09/23/17 05:38 09/23/17 09:11 Prothrombin Time 10.4 SECONDS Prothromb Time International Ratio 1.0 Activated Partial Thromboplast Time 26.7 SECONDS Partial Thromboplastin Ratio 1.0 Erythrocyte Sedimentation Rate 10 mm/hr C-Reactive Protein 0.43 mg/dl Vitamin B12 Level 198 pg/mL Lyme Disease IgG Antibody NEG Lyme Disease IgM Antibody NEG Assessment and Plan 36yo female - 1. left foot motor weakness - extensive work-up to date negative including MRI brain and MRI lumbar spine. Agree with Dr. Sparks from neurology that examination is confusing and that her symptoms/signs do not completely make sense. She does have B12 deficiency but it would be odd for low B12 to cause unilateral symptoms. [id number] it will be replaced. Dr. Sparks recommending c-spine/t-spine MRIs; will at least get the c-spine today due to her recent right hand complaints. Cont PT, OT. Outpatient NCS/EMG also recommended. Of note - lymes and sed rate/crp were normal. 2. DVT proph - lovenox 40mg daily. 3. 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 4. FEN - diet as tolerated, lytes stable. 5. acute migraine headache - move to quiet, private room. Imitrex prn. Anti- emetics prn. Cont topamax prophylaxis. 6. gait disturbance due to #1 - PT, OT; both modalities recommending rehab. 7. hypokalemia - resolved. 8. sinusitis - finish augmentin course. 9. morbid obesity, BMI 42 - noted. 10. vomiting - likely due to migraine. Cannot exclude severe constipation contributing. No SBO or ileus on x-rays today. 11. constipation on x-ray - dulcolax suppos x 1 now. Then miralax daily. 12. vitamin B12 def - suspect pernicious anemia as she has autoimmune tendencies given her vitiligo, etc. Given her neuro symptoms will replace IM for now with daily shots. bia updated at bedside once again ok to d/c tele and move to med/surg Continued [facility] stay due to: ambulation difficulties, multiple IV medications needed Discharge planning: uncertain
[2017-09-24] VITALS (8 sets, daily range): BP systolic 107–130; BP diastolic 71–84; PULSE 74–114; TEMP 36.6–36.8; O2SAT 95–98
[2017-09-24] MEDS: POLYETHYLENE (MIRALAX) 17 GM PACK PO SCH (09:42)
[2017-09-24] MEDS: RANITIDINE HCL 150 MG TAB PO SCH ×2 (09:43→20:37)
[2017-09-24] MEDS: ENOXAPARIN 40 MG/0.4 ML SYR SQ SCH (09:43)
[2017-09-24] MEDS: TOPIRAMATE 25 MG TAB PO SCH ×2 (09:44→20:37)
--- NOTE | 2017-09-24 09:55 | Neurology Progress Notes ---
Neurology Progress Note Date of Service Sep 24, 2017. Subjective Follow-up for numbness and weakness of the left leg The patient continues to complain of severe sensory loss to the distal left lower extremity extending up to the knee as well as associated weakness. She has been able to ambulate to a limited degree using a walker. She continues to deny any associated pain in the limb, either proximally or distally or pain in the hip, pelvic region, or spine. She does not have any associated swelling or discoloration of the limb. The patient is not exactly sure of the onset of her left lower extremity weakness but believes it began after a fall at home approximately 1 week ago. She believes she may have been laying on the ground for about an hour. She denies experiencing any significant pain affecting the left lower extremity, either proximally or distally after this fall. She also denies expressing any significant hip, pelvic, or low back pain. She denies use of any sedatives, benzodiazepines, or excessive alcohol consumption at home. She denies passing out while seated on the toilet. She denies any obvious injuries to either the anterior or posterior aspect of the left thigh. Objective Date Time Temp Pulse Resp B/P (MAP) Pulse Ox O2 Delivery O2 Flow Rate FiO2 09/24/17 07:50 36.7 81 16 119/77 (91) 97 Room Air 92 120/75 (90) 100 127/84 (98) 09/24/17 07:35 Room Air 09/24/17 05:42 74 116/73 (87) 96 112/76 (88) 104 121/82 (95) 09/23/17 23:59 Room Air 09/23/17 22:52 36.7 85 14 112/73 (86) 97 Room Air 09/23/17 19:20 Room Air 09/23/17 16:00 88 Room Air 09/23/17 15:33 36.8 86 18 131/88 (102) 98 09/23/17 15:30 36.6 85 18 135/85 (102) 97 Room Air 09/23/17 12:00 Room Air 09/23/17 11:35 36.9 100 18 110/75 (87) 99 106 108/72 (84) 111 102/70 (81) Exam: The patient is sitting up comfortably in bed, no acute distress. She is alert and fully oriented. Attention and concentration normal. Exhibits a normal spontaneous speech pattern. Visual layton full to confrontation. Visual acuity normal. Pupils equal round reactive to light and accommodation. Eye movements normal. There is no facial droop. Tongue and palate are midline. There is no pronator drift with outstretched arms. Strength for both upper extremities is normal proximally and distally. No tremors observed. Muscle tone for the upper limbs normal. There is weakness of the left lower extremity noted. Left ankle dorsiflexion 0/5. Left ankle plantarflexion 0/5. Left ankle eversion and inversion are both 0/5. Left knee extension 4/5. Left knee flexion 3/5. Left hip adduction 4/5. Left hip abduction 3/5. Left hip flexion 4/5. Sensory testing reveals complete anesthesia of the distal lower limb affecting both the medial, lateral, dorsal, and plantar aspect of the foot as well as the medial, lateral, anterior, and posterior aspect of the lower limb extending up to the knee. Strength for the right lower extremity is normal proximally and distally. Sensation for the right lower extremity is normal proximally and distally. Sensation for the arms is normal proximally and distally bilaterally. Deep tendon reflexes are intact and symmetrical for the arms as well as at both patellar tendons. The right Achilles tendon reflexes 1+, the left Achilles tendon reflex is 0. Both plantar responses are downgoing. There is no swelling or discoloration of either lower limb. Peripheral pulses intact bilaterally. Current Inpatient Medications Medications (Trade) Dose Ordered Sig/Lelia Route Start Time Stop Time Status Last Admin Dose Admin Acetaminophen (Tylenol Tab) 650 mg Q4H PRN PO 09/20/17 13:30 10/20/17 13:29 09/21/17 08:06 650 MG Meclizine HCl (Antivert Tab) 25 mg TID PRN PO 09/20/17 14:00 10/20/17 13:59 Ranitidine HCl (zANTac TAB) 150 mg BID PO 09/20/17 21:00 10/20/17 20:59 09/23/17 20:47 150 MG Sumatriptan Succinate (Imitrex Tab) 50 mg DAILY PRN PO 09/20/17 14:00 10/20/17 13:59 09/23/17 14:21 50 MG Topiramate (Topamax Tab) 25 mg BID PO 09/20/17 21:00 10/20/17 20:59 09/23/17 20:48 25 MG Gadobutrol (Gadavist) 10 mmol UD PRN IV 09/20/17 17:30 09/24/17 17:29 Sodium Chloride ([place] Nasal [place]) 2 sprays PRN PRN NA 09/20/17 18:00 10/20/17 17:59 09/20/17 18:22 2 SPRAYS Enoxaparin Sodium (Lovenox Inj) 40 mg QAM SQ 09/23/17 09:00 10/23/17 08:59 09/23/17 08:55 40 MG Gadobutrol (Gadavist) 10 mmol UD PRN IV 09/22/17 21:45 09/26/17 21:44 Cyanocobalamin (Vitamin B-12 Inj) 1,000 mcg DAILY IM 09/23/17 14:00 10/23/17 13:59 09/23/17 14:23 1,000 MCG Polyethylene (Miralax Powder Packet) 17 gm DAILY PO 09/24/17 09:00 10/24/17 08:59 Sumatriptan Succinate (Imitrex Sq Inj) 6 mg DAILY PRN SQ 09/23/17 19:00 10/23/17 18:59 Impression Persistent distal left lower extremity weakness and sensory loss as described above. This patient's greatest degree of weakness affects left foot ankle dorsiflexion, plantarflexion, inversion, and eversion. She also has a moderate degree of weakness for the left knee flexion. This pattern of weakness is potentially consistent with sciatic neuropathy. However, this patient also exhibits mild weakness of the left quadriceps and left hip flexor muscle group which would not be expected in a sciatic neuropathy but are potentially suggestive of a left femoral neuropathy. Furthermore, this patient's sensory loss, which is profound and circumferential from the toes of the left foot extending to the knee would be atypical for sciatic neuropathy alone as sciatic neuropathy characteristically spares the medial aspect of the distal lower limb. Diagnostic possibilities at this point include both a left sciatic and left femoral neuropathy. Etiology potentially posttraumatic and related to her fall at home occurring about 1 week ago. However, I think it would be unusual to develop both a femoral and sciatic neuropathy at the same time. Mononeuritis multiplex is unlikely given her complete lack of associated pain corresponding to either nerve distribution as well as her normal sedimentation rate. Transverse myelitis probably unlikely given her lack of spinal pain and lack of upper motor neuron findings on examination. Her symptoms and examination are not suggestive of either a cervical or thoracic spinal syrinx. Of note, she did not have an associated cervical syrinx on an MRI completed in 2014. A functional disorder is possible but should remain a diagnosis of exclusion in this patient. Plan Proceed with MRI of the cervical and thoracic spine as previously recommended. This patient will need an EMG/NCV of the left lower limb. This testing is very useful to diagnose both sciatic and femoral neuropathies. A CT of the pelvis with and without contrast may be useful to exclude a hematoma or other compressive lesion affecting the sciatic nerve.
[2017-09-24] MEDS: CYANOCOBALAMIN 1000 MCG/ML VIAL IM SCH (10:55)
[2017-09-24] MEDS ORDERED: HYDROmorphone INJ 0.5 MG/0.5 ML SYR IV STA (13:21)
[2017-09-24] MEDS ORDERED: OPTIRAY 320 IV PRN (15:00)
--- NOTE | 2017-09-24 15:07 | DIAGNOSTIC IMAGING REPORT ---
CT OF THE PELVIS WITH IV CONTRAST CLINICAL HISTORY: Left sciatic and femoral neuropathies. COMPARISON STUDY: MRI of the lumbar spine September 22, 2017. TECHNIQUE: Axial images of the pelvis were obtained following intravenous injection of 119 cc Optiray 320 IV. Sagittal and coronal reconstructions were viewed. FINDINGS: A 1.9 cm rim-enhancing right ovarian lesion suggests a corpus luteal cyst. Caliber of visualized small and large bowel are normal. The appendix is normal. There is no pelvic lymphadenopathy. Trace pelvic fluid is likely physiologic. No pelvic mass is identified. Major vasculature of the pelvis is patent. No fracture or suspicious osseous lesion is noted. The sacral neural foramen are patent by CT. IMPRESSION: 1. No CT findings of the lower lumbar spine, pelvis or proximal thighs to explain sciatic/femoral nerve neuropathy. 2. Right ovarian corpus luteal cyst and trace fluid within pelvis which is likely physiologic. Electronically signed by: Michelet Cifuentes M.D. 09/24/2017 3:06 PM Dictated Date/Time: 09/24/2017 3:00 PM
[2017-09-24] MEDS ORDERED: HYDROmorphone INJ 0.5 MG/0.5 ML SYR IV SCH (16:45)
[2017-09-24] MEDS ORDERED: DIAZEPAM 5MG TAB PO SCH (16:45)
--- NOTE | 2017-09-24 18:16 | Progress Note ---
Subjective Date of Service: Sep 24, 2017. Subjective Pt evaluation today including: conversation w/ patient, conversation w/ family (), physical exam, chart review, lab review, review of studies (CT pelvis ), conversation w/ road consultant (neuro), review of inpatient medication list Pain: none reported, just numbness from L knee to the foot PO Intake: normal Voiding: no voiding problems no new neuro complaints distal left leg weakness/sensory loss unchanged right hand numbness has not returned headache resolved did have bowel movement overnight no further emesis Problem List Medical Problems: (1) Cephalalgia Status: Acute (2) Change in mental status Status: Acute (3) Contusion of multiple sites Status: Acute (4) Contusion of right knee Status: Acute (5) Dehydration Status: Acute (6) Fall Status: Acute (7) Fall Status: Acute (8) Knee pain Status: Acute (9) Migraine headache Status: Acute (10) Paresthesia Status: Acute (11) Right arm weakness Status: Acute (12) Sinusitis, acute Status: Acute (13) Sleep deprivation Status: Acute (14) Syncope Status: Acute Review of Systems Constitutional: No fever, No chills Respiratory: No shortness of breath Abdomen: No pain Objective Vital Signs Date Time Temp Pulse Resp B/P (MAP) Pulse Ox O2 Delivery O2 Flow Rate FiO2 09/24/17 17:02 95 Room Air 09/24/17 15:00 36.6 88 16 115/80 (92) 96 Room Air 09/24/17 07:50 36.7 81 16 119/77 (91) 97 Room Air 92 120/75 (90) 100 127/84 (98) 09/24/17 07:35 Room Air 09/24/17 05:42 74 116/73 (87) 96 112/76 (88) 104 121/82 (95) 09/23/17 23:59 Room Air 09/23/17 22:52 36.7 85 14 112/73 (86) 97 Room Air 09/23/17 19:20 Room Air Physical Exam General Appearance: no apparent distress, + obese ENT: pharynx normal Neck: no JVD Respiratory/Chest: lungs clear, no respiratory distress, no accessory muscle use Cardiovascular: regular rate, rhythm, no gallop, no murmur Abdomen: normal bowel sounds, non tender, soft, no organomegaly Extremities: no pedal edema Neurologic/Psychiatric: + pertinent finding (patellar reflex 2+/3+; achilles reflex on left - could not obtain; 0/5 strength with foot plantarflexion; 2-3/5 strength dorsiflexion; no other neuro deficits in arms or RLE) Assessment and Plan 36yo female - 1. left foot motor weakness - extensive work-up to date negative including MRI brain and MRI lumbar spine. Dr. Sparks feels she could have a femoral nerve/sciatic nerve impingement. Thus , CT of pelvis was ordered but there did not appear to be any focal lesion, mass , etc to account for symptoms. Next step is cervical spine MRI. She does have B12 deficiency but it would be odd for low B12 to cause unilateral symptoms. [id number] it will be replaced. Cont PT, OT. Outpatient NCS/EMG also recommended. Of note - lymes and sed rate/crp were normal. 2. DVT proph - lovenox 40mg daily. 3. 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 4. FEN - diet as tolerated, lytes stable. NS x 1 liter due to contrast load today. 5. acute migraine headache - resolved; cont daily topamax prophylaxis. 6. gait disturbance due to #1 - PT, OT; both modalities recommending rehab. referral to [facility] in process 7. hypokalemia - resolved. 8. sinusitis - finished 10-days of augmentin. Clinically resolved. 9. morbid obesity, BMI 42 - noted. 10. vomiting - likely due to migraine. has not recurred. 11. constipation - improved. 12. vitamin B12 def - suspect pernicious anemia as she has autoimmune tendencies given her vitiligo, etc. Given her neuro symptoms will replace IM for now with daily shots. bia updated at bedside once again dispo planning - [facility] Continued [facility] stay due to: ambulation difficulties, multiple IV medications needed Discharge planning: rehab hospital
[2017-09-24] MEDS ORDERED: GADAVIST IV PRN (18:30)
--- NOTE | 2017-09-24 18:39 | DIAGNOSTIC IMAGING REPORT ---
CERVICAL SPINE MRI WITH AND WITHOUT CONTRAST HISTORY: right hand numbness, left leg weakness TECHNIQUE: Multiplanar multisequence MRI of the cervical spine was performed both before and after the use of intravenous contrast. COMPARISON STUDY: Brain MRI 09/20/2017. Cervical spine radiograph 09/20/2017. Cervical spine MRI 07/19/2015. FINDINGS: There is again noted postoperative changes of a suboccipital craniectomy for a Chiari 1 malformation. This remains unchanged. Incidental note is made of a partially empty sella, unchanged. Alignment and curvature is cervical spine are intact. No fractures identified. Mild disc space narrowing at C3-C4, C4-C5, C5-C6. The cervical spinal cord is normal in course, caliber, and signal intensity. No abnormal enhancement within the cervical spine. The prevertebral soft tissues and the C1-C2 interval are intact. The posterior arch of C1 has also been resected. C2-C3: No significant central canal or neural foraminal narrowing. C3-C4: No significant central canal or neural foraminal narrowing. C4-C5: No significant central canal or neural foraminal narrowing. Tiny broad-based posterior disc bulge. C5-C6: Small broad-based posterior disc bulge which abuts but does not deform the anterior cord. No significant neural foraminal narrowing. C6-C7: No significant central canal or neural foraminal narrowing. C7-T1: No significant central canal or neural foraminal narrowing. IMPRESSION: 1. No significant change compared to the prior studies. 2. Small broad-based posterior disc bulge at C5-C6 is again noted. 3. Suboccipital craniectomy. 4. The cervical spinal cord is normal in course, caliber, and signal intensity. Electronically signed by: Yossi Jasso M.D. 09/24/2017 6:38 PM Dictated Date/Time: 09/24/2017 6:31 PM
[2017-09-24] MEDS ORDERED: SODIUM CHLORIDE 0.9% 1000ML 1,000 ML IV SCH (20:00)
[2017-09-25 07:03] VITALS: BP 108/69; PULSE 74; TEMP 36.7; O2SAT 97
[2017-09-25] MEDS: SUMATRIPTAN SUCCINATE 50 MG TAB PO PRN (08:19)
[2017-09-25] MEDS: POLYETHYLENE (MIRALAX) 17 GM PACK PO SCH (08:19)
[2017-09-25] MEDS: TOPIRAMATE 25 MG TAB PO SCH (08:19)
[2017-09-25] MEDS: RANITIDINE HCL 150 MG TAB PO SCH (08:19)
[2017-09-25 08:54] LABS: CALCIUM 8.1 mg/dl (8.5-10.1); CREATININE 0.87 mg/dl (0.60-1.20); POTASSIUM 3.7 mmol/L (3.5-5.1)
[2017-09-25] MEDS: ENOXAPARIN 40 MG/0.4 ML SYR SQ SCH (09:05)
[2017-09-25] MEDS: CYANOCOBALAMIN 1000 MCG/ML VIAL IM SCH (09:06)
--- NOTE | 2017-09-25 11:48 | Neurology Progress Notes ---
Neurology Progress Note Date of Service Sep 25, 2017. Subjective Follow-up for weakness and numbness affecting the left lower limb The patient denies any significant change in her left lower extremity weakness or numbness compared with yesterday. She continues to deny any swelling, or pain affecting the left lower limb, hip, pelvis, or spine. A CT of the pelvis with and without contrast was completed yesterday. No significant abnormalities identified. An MRI of the cervical spine was completed yesterday as well. No significant abnormalities identified. Objective Date Time Temp Pulse Resp B/P (MAP) Pulse Ox O2 Delivery O2 Flow Rate FiO2 09/25/17 07:45 Room Air 09/25/17 07:03 36.7 74 17 108/69 (82) 97 Room Air 09/24/17 23:56 Room Air 09/24/17 23:32 36.8 91 14 107/71 (83) 98 Room Air 102 120/79 (93) 103 117/75 (89) 09/24/17 20:35 114 108/79 (89) 97 Room Air 09/24/17 20:32 104 130/83 (99) 97 Room Air 09/24/17 20:31 90 113/72 (86) 96 Room Air 09/24/17 17:02 95 Room Air 09/24/17 15:00 36.6 88 16 115/80 (92) 96 Room Air Last 24 Hours Test 09/25/17 07:53 Sodium Level 140 mmol/L Potassium Level 3.7 mmol/L Chloride Level 112 mmol/L Carbon Dioxide Level 21 mmol/L Anion Gap 7.0 mmol/L Blood Urea Nitrogen 11 mg/dl Creatinine 0.87 mg/dl Est Creatinine Clear Calc Drug Dose 101.7 ml/min Estimated GFR () 100.0 Estimated GFR (Non- 86.3 BUN/Creatinine Ratio 12.5 Random Glucose 93 mg/dl Calcium Level 8.1 mg/dl Exam: The patient is lying comfortably in bed. She is alert and fully oriented area did attention and concentration normal. She exhibits a normal spontaneous speech pattern. Visual layton full to confrontation. Pupils equal round reactive to light and accommodation. Eye movements normal. There is no facial droop. Tongue and palate move well. There is no pronator drift with the upper limbs. Normal strength for the upper limbs. There is normal strength for the right lower extremity proximally and distally. Patient continues to exhibit flaccid weakness at the left ankle with 0 out of 5 strength for left foot dorsiflexion, plantarflexion, inversion, and eversion. She has mild proximal weakness for the left lower limb. No atrophy. No fasciculations. No abnormal movements. Patient continues to exhibit a circumferential sensory loss in the toes of the left foot extending to the patella. The sensory loss affects the medial aspect of the left lower limb as well as the lateral, anterior, and posterior aspects of the left lower limb equally. Plantar responses downgoing bilaterally. Patellar tendon reflexes intact and symmetrical. The left Achilles tendon reflexes reduced as compared to the right. There is no clonus. Current Inpatient Medications Medications (Trade) Dose Ordered Sig/Lelia Route Start Time Stop Time Status Last Admin Dose Admin Acetaminophen (Tylenol Tab) 650 mg Q4H PRN PO 09/20/17 13:30 10/20/17 13:29 09/21/17 08:06 650 MG Meclizine HCl (Antivert Tab) 25 mg TID PRN PO 09/20/17 14:00 10/20/17 13:59 09/25/17 09:08 25 MG Ranitidine HCl (zANTac TAB) 150 mg BID PO 09/20/17 21:00 10/20/17 20:59 09/25/17 08:19 150 MG Sumatriptan Succinate (Imitrex Tab) 50 mg DAILY PRN PO 09/20/17 14:00 10/20/17 13:59 09/25/17 08:19 50 MG Topiramate (Topamax Tab) 25 mg BID PO 09/20/17 21:00 10/20/17 20:59 09/25/17 08:19 25 MG Sodium Chloride ([place] Nasal [place]) 2 sprays PRN PRN NA 09/20/17 18:00 10/20/17 17:59 09/20/17 18:22 2 SPRAYS Enoxaparin Sodium (Lovenox Inj) 40 mg QAM SQ 09/23/17 09:00 10/23/17 08:59 09/25/17 09:05 40 MG Gadobutrol (Gadavist) 10 mmol UD PRN IV 09/22/17 21:45 09/26/17 21:44 Cyanocobalamin (Vitamin B-12 Inj) 1,000 mcg DAILY IM 09/23/17 14:00 10/23/17 13:59 09/25/17 09:06 1,000 MCG Polyethylene (Miralax Powder Packet) 17 gm DAILY PO 09/24/17 09:00 10/24/17 08:59 Sumatriptan Succinate (Imitrex Sq Inj) 6 mg DAILY PRN SQ 09/23/17 19:00 10/23/17 18:59 Ioversol (Optiray 320) 100 ml UD PRN IV 09/24/17 15:00 09/28/17 14:59 Gadobutrol (Gadavist) 10 mmol UD PRN IV 09/24/17 18:30 09/28/17 18:29 Impression This patient's persistent left lower extremity weakness and numbness is potentially consistent with a sciatic neuropathy. However, sciatic neuropathies typically spare the medial aspect of the distal lower limb. Furthermore, her sensory loss and weakness are quite profound and seem unusual as there is no definitive history of obvious injury to the limb, pelvic region, or spine. Also , she does have some proximal weakness affecting the left quadriceps and hip flexor group which would not be encountered in sciatic neuropathy but could be seen in femoral neuropathy. It would be unlikely to have both of these pathologies occurring simultaneously. No significant pathology has been identified on her imaging evaluation thus far. As stated previously, a functional disorder cannot be completely excluded but should remain a diagnosis of exclusion. Plan I would still like this patient to have an MRI of the thoracic spine completed possible. If the study cannot be completed today it may be done in the outpatient setting. This patient will need an EMG/NCS of the left lower limb completed as an outpatient as well. PT/OT Case discussed with Dr. Chester. No further recommendations at this time
[2017-09-25 14:34] VITALS: BP_SYST 130; BP_SYST 131; BP_DIAS 77; BP_DIAS 80; BP_DIAS 83; PULSE 100; PULSE 84; PULSE 87
[2017-09-25] MEDS ORDERED: CYAN1TAB18 PO (15:34)
[2017-09-25] MEDS ORDERED: MRLP17 PO (15:34)
--- NOTE | 2017-09-25 15:48 | Discharge Instructions ---
Discharge Instructions Date of Service Sep 25, 2017. Admission Reason for Admission: falls, passing out, left foot/ankle weakness Discharge Discharge Diagnosis / Problem: left leg/foot/ankle weakness - etiology uncertain Discharge Goals Goal(s): Learn about illness, Diagnostic testing, Therapeutic intervention Activity Recommendations Activity Limitations: as noted below Driving or Machine Use: resume when cleared by Dr. Fink or Dr. Sparks Recommend following the instructions of the PT/OTs at [facility]. Until you are evaluated by them I would recommend against any activity that involves use of the left leg (using an exercise bike, climbing a ladder, driving a car, etc). You will have to use your best judgement with restricting other activities depending on the strength of your left leg. . Instructions / Follow-Up Instructions / Follow-Up From Dr. Chester: 1. The exact cause of your left thigh weakness and the weakness in the left foot/ankle was uncertain. It is possible that you had an injury to your femoral nerve or the sciatic nerve but again this was not proven as your MRIs were normal. You have been cleared by PT to return home. With that said please use caution with ambulation, especially going up steps, to avoid a fall. We recommend ongoing physical and occupational therapy. Please take the prescription and go to [facility] in [place]. I would try to start your therapy as quickly as possible. While waiting for your first appointment please perform some of the exercises shown by our PT staff to help strengthen the muscles in your left leg. Dr. Sparks would like to obtain an MRI of the thoracic spine as well as nerve conduction studies in the near future. Please call Dr. Sparks's office on Wednesday09/27/17 to set up an appointment in the next 1-2 weeks to complete these studies. 2. You were found to be Vitamin B12 deficient. Your B12 level was 198. Please purchase [id number] vitamin B12 1000mcg once a day and take indefinitely. Your Vitamin B12 level will need to be rechecked in the next 1-2 months to ensure that it is improving. Dr. Fink can do this for you. It is slightly possible that the low Vitamin B12 has been contributing to some of your symptoms. 3. Your x-rays of the abdomen showed significant constipation. Consider taking [id number] miralax once daily to treat/prevent the constipation. 4. Recent sinus infection - you received antibiotics most of this stay and your course of the antibiotics is now complete. You can discard any remaining antibiotic at home. 5. Follow-up appointments - * see Dr. Fink THIS WEEK * see Dr. Sparks within 1-2 weeks * see [facility]/PT in [facility] 6. Return to [facility] if - * your weakness in the left leg worsens and it interferes with your ability to walk * you develop new weakness in other limbs * you run a fever over 100.5 degrees * the numbness in the left leg worsens or travels to other regions * any other concerns Current Hospital Diet Patient's current hospital diet: Regular Diet Discharge Diet Recommended Diet: Regular Diet Procedures Procedures Performed: MRI neck showing a small herniated disc at C5-C6 but NOT causing any compromise to the nerves or spinal cord. MRI lumbar spine - essentially normal. MRI brain - showed evidence of your prior surgery but no other findings such as stroke. CAT scan of the pelvis showing NO compromise to any nerves in the pelvis. Pending Studies Studies pending at discharge: no Medical Emergencies . Who to Call and When: Medical Emergencies: If at any time you feel your situation is an emergency, please call 911 immediately. . Non-Emergent Contact Non-Emergency issues call your: Primary Care Provider, Neurologist Call Non-Emergent contact if: temperature is above 100.5, you have any medication questions . . "Provider Documentation" section prepared by Augustine Chester. . VTE Core Measure Inpt VTE Proph given/why not?: Enoxaparin (Lovenox)SQ
[2017-09-25 16:03] VITALS: BP 116/74; PULSE 100; TEMP 36.6; O2SAT 94
[2017-09-25 16:05] VITALS: BP 122/80
[2017-09-25 16:06] VITALS: BP 121/77
[2017-09-25 16:31] VITALS: BP 121/77; PULSE 100; TEMP 36.6; O2SAT 94
--- NOTE | 2017-09-26 21:17 | Discharge Summary ---
Discharge Summary Date of Service Sep 26, 2017. Discharge Summary Admission Date: Sep 20, 2017 at 13:58 Discharge Date: Sep 25, 2017 Discharge Disposition: Home Principal Diagnosis: left foot weakness/numbness, improving, etiology uncertain Problems/Secondary Diagnoses: Other issues addressed while hospitalized: Syncope Vitamin B12 deficiency - NEW Migraine Headache - resolved Hypokalemia - resolved Recent acute sinusitis - resolved Chronic/past diagnoses: 1. h/o Chiari I Malformation s/p suboccipital craniectomy 2. migraine headaches 3. h/o depression with psychosis 4. GERD 5. vitiligo Immunizations: Have You Had Influenza Vaccine: Yes Influenza Vaccine Date: Jul 12, 2008 History of Tetanus Vaccine?: states up to date Tetanus Immunization Date: Sep 13, 2007 History of Pneumococcal: No History of Hepatitis B Vaccine: Yes Hepatitis Immunization Date: Oct 14, 2007 Procedures: 1. head CT: IMPRESSION: 1. No acute intracranial findings 2. Chiari malformation with evidence of a prior suboccipital craniotomy 3. Stable enlarged sella with a suspected partially empty sella 2. MRI brain: IMPRESSION: 1. No acute intracranial findings. 2. No change in appearance of the brain since exam of December 30, 2016. 3. Stable postoperative findings consistent with a suboccipital craniectomy for Chiari decompression with cerebellar tonsillar ectopia. 3. Lumbar spine MRI: IMPRESSION: 1. Minimal multilevel degenerative changes of the lumbar spine. Minimal disc bulge at L5-S1. Patent central canal and neural foramen. 2. No acute abnormality within the lumbar spine by MRI. 4. Cervical spine MRI: IMPRESSION: 1. No significant change compared to the prior studies. 2. Small broad-based posterior disc bulge at C5-C6 is again noted. 3. Suboccipital craniectomy. 4. The cervical spinal cord is normal in course, caliber, and signal intensity. 5. CT pelvis: IMPRESSION: 1. No CT findings of the lower lumbar spine, pelvis or proximal thighs to explain sciatic/femoral nerve neuropathy. 2. Right ovarian corpus luteal cyst and trace fluid within pelvis which is likely physiologic. Consultations: neurology - Harjinder Sparks MD PT, OT Medication Reconciliation New Medications: Cyanocobalamin (B-12) 1,000 Mcg Tab 1000 MCG PO DAILY, #30 TABS 11 Refills Polyethylene (Miralax) 17 Gm Pow 17 GM PO DAILY PRN for Constipation, #1 BTL 2 Refills can purchase [id number] Continued Medications: Meclizine Hcl (Meclizine Hcl) 25 Mg Tab 25 MG PO TID PRN for dizziness for 10 Days, #30 TAB Ranitidine (Zantac) 150 Mg Tab 150 MG PO BID, TAB Sumatriptan Succinate (Imitrex) 50 Mg Tab 50 MG PO PRN PRN for Migraine, TAB Topiramate (Topamax ) 25 Mg Tab 25 MG PO BID, TAB Discontinued Medications: Amoxicillin (Amoxil) 875 Mg Tab 875 MG PO Q12, TAB takes 875-125mg q 12 hours Pseudoephedrine Hcl (Pseudoephedrine Hcl Er) 120 Mg Tab 30 MG PO DIRECTED PRN for sinus for 15 Days, TAB Referrals At Discharge Follow up Referrals: Neurologist Referral - Within 1-2 Weeks with Harjinder Sparks M.D. Discharge Exam Physical Exam: General Appearance: no apparent distress, + obese ENT: pharynx normal Neck: no JVD Respiratory/Chest: lungs clear, no respiratory distress, no accessory muscle use Cardiovascular: regular rate, rhythm, no gallop, no murmur, normal peripheral pulses Abdomen / GI: normal bowel sounds, non tender, soft, no organomegaly Extremities: no pedal edema Neurologic/Psychiatric: alert, oriented x 3, + motor weakness (left foot/ ankle dorsiflexion & plantarflexion, strength about 3-4/5; left thigh flexion about 3-4/5; LUE, RLE, RUE - strength 5/5 ) Hospital Course HISTORY OF PRESENT ILLNESS: Ms. Land is here today accompanied by her fiance who gives most of the history. This is her seventh visit to the ER within a year, mainly for syncope and migraine. She recently was diagnosed with a sinus infection and treated with antibiotics and prednisone. She has been unsteady on her feet since Sep 03 when started having cold symptoms. More recently she started experiencing tremors of the right hand, left foot weakness and numbness, lethargy, and staring off into space. She has fallen two or three times over the past week at home. She doesn't' remember falling, last was Wednesday night, she is not sure if she hit her head but she had a red tremayne above her eye. She was walking to chair and next thing she knew she was waking up on the ground. She has had a significant outpatient workup for syncope including Holter monitor study. No cp or sob, no fever, no nausea or vomiting, no changes in bowel or bladder. She feels somewhat lightheaded when she stands up. HOSPITAL COURSE: The etiology of the patient's left foot/ankle/thigh weakness and numbness was uncertain during her stay as her extensive work-up was unremarkable. She was seen in consult by Dr. Harjinder Sparks, neurology, who follows her in the outpatient neurology clinic. He was concerned that she could have pathology affecting the left-sided femoral nerve or the left-sided sciatic nerve. However, MRI brain, MRI of the cervical spine, and MRI of the lumbar regions were negative. CT of the pelvis was also obtained to ensure no focal lesion or mass causing extrinsic compression to any pelvic nerve and this, too, was negative. She was found to have Vitamin B12 deficiency but it would be odd for low B12 to cause unilateral symptoms. Other metabolic work-up including lyme's testing and sed rate/crp were normal. On the day of discharge the patient surprisingly started regaining strength with dorsiflexion/plantarflexion of the left foot/ankle as well as extension of the left knee. The cause of her spontaneous improvement was uncertain. She was seen by PT/OT during her stay. She made enough gains in her ambulation to be able to return home with her fiance. She will attend outpatient PT/OT after discharge. Other issues addressed - 1. Vitamin B12 deficiency - the patient's B12 level was 198. She was initiated on IM injections and transitioned to oral supplementation at discharge. I question if she could have pernicious anemia given her age and her vitiligo history (ie tendency towards autoimmune disease). I recommended she have her B12 level repeated in 4-6 weeks to ensure the value is improving. 2. Migraine headache - she required imitrex and anti-emetics while hospitalized. Headache was resolved prior to discharge. 3. Syncope - the patient had no episodes of such while hospitalized nor pre- syncope. 4. hypokalemia - replaced & resolved. 5. recent acute sinusitis - she has completed all antibiotics at time of discharge. The patient was advised to follow-up with Dr. Sparks within 1-2 weeks of discharge. He plans on performing EMG/NCS of the left leg. Thoracic spine MRI may also be obtained. Total Time Spent: Greater than 30 minutes This includes examination of the patient, discharge planning, medication reconciliation, and communication with other providers. Discharge Instructions Please refer to the electronic Patient Visit Report (Discharge Instructions) for additional information. Follow-Up 1. see Dr. Fink, PCP, within [address] Sparks, neurology, within 1-2 weeks 3. outpatient PT/OT as soon as possible Additional Copies To Harjinder Sparks M.D.; Guillermo Fink M.D.
== END 2017-09-25 17:00 | disposition home or self-care (01) | DRG 951 ==
LOC: C.EDB 09:09 → C.MED 13:58 → ENRESERV 14:17 → EDBEDREQ 09-23 15:53 → ENRESERV 09-23 17:07 → C.MSN 09-23 17:46
PROVIDERS: ADMIT Internal Medicine Sports Medicine; ATTEND Internal Medicine
DX: R44.8 Other symptoms and signs involving general sensations and perceptions (principal); E53.8 Deficiency of other specified B group vitamins; G43.909 Migraine, unspecified, not intractable, without status migrainosus; E87.6 Hypokalemia; J01.90 Acute sinusitis, unspecified; F32.9 Major depressive disorder, single episode, unspecified; E86.0 Dehydration; K21.9 Gastro-esophageal reflux disease without esophagitis; R26.2 Difficulty in walking, not elsewhere classified; K59.00 Constipation, unspecified

== ENCOUNTER → 2017-10-01 | Outpatient (CLI) | payer OTHER ==
[~2017-10-01] MED LIST changes: -AMOX875T3 PO; +CYAN1TAB18 PO; +MRLP17 PO; -PSEU1TAB67 PO
[2017-10-02 07:45] LABS: HEMOGLOBIN A1C 4.9 % (4.5-5.6)
== END | disposition home or self-care (01) ==
LOC: C.LABBFT 13:57
PROVIDERS: ATTEND Physician Assistant Medical
DX: R73.09 Other abnormal glucose (principal)

== ENCOUNTER 2017-10-23 04:02 | Observation (INO) | payer OTHER ==
[~2017-10-23] VITALS: Ht 157.5 cm; Wt 95.9 kg
[2017-10-23 04:58] LABS: BASO % 0.1 %; BASO ABS # 0.01 K/uL (0-0.2); EOS % 1.1 %; EOS ABS # 0.08 K/uL (0-0.5); HEMATOCRIT 39.4 % (37-47); HEMOGLOBIN 13.1 g/dL (12.0-16.0); IG# 0.02 K/uL (0.00-0.02); LYMPH % 15.5 %; LYMPH ABS # 1.14 K/uL (1.2-3.4); MEAN CELL VOLUME 84.9 fL (80-100); MEAN CORPUSCULAR HEMOGLOBIN 28.2 pg (25-34); MEAN CORPUSCULAR HGB CONC 33.2 g/dl (32-36); MONO % 4.6 %; MONO ABS # 0.34 K/uL (0.11-0.59); NEUT % 78.4 %; NEUT ABS # 5.75 K/uL (1.4-6.5); PLATELET COUNT 195 K/uL (130-400); RED CELL DISTRIBUTION WIDTH CV 13.9 % (11.5-14.5); RED CELL DISTRIBUTION WIDTH SD 42.4 fL (36.4-46.3); WHITE BLOOD COUNT 7.34 K/uL (4.8-10.8)
--- NOTE | 2017-10-23 04:58 | EMERGENCY ROOM VISIT NOTE ---
History Report prepared by James: Erwin Rodriguez Under the Supervision of: Dr. Waqar Huggins M.D. First contact with patient: 04:12 Chief Complaint: SYNCOPE Stated Complaint: BACK PAIN Nursing Triage Summary: Pt had syncopal epsidoe after getting up from bed this evening. Remembers walking and waking on floor. Left leg numbness/weakness from left knee down. Recent admission for similar left leg weakness/numbness without any findings. History of Present Illness The patient is a 36 year old female who presents to the Emergency Room with complaints of a recent fall that occurred an hour ago. Patient states that she went to bed 5 hours ago and woke up on the floor an 1 hour ago. Patient has associated symptoms of quadriceps pain, lower back pain, and lower leg pain below the knee. She adds that the front of her head hurts. She states that she cannot feel anything below the knee on her left side and adds that the feeling is the same on her inner and outer thighs. Source of History: patient Onset: 1 hour ago Position: leg Modifying Factors (Relieving): other (None) Associated Symptoms: + back pain, + weakness Note: Patient has quadriceps pain and lower leg pain below the knee. She adds that the front of her head hurts. Review of Systems See HPI for pertinent positives & negatives. A total of 10 systems reviewed and were otherwise negative. Past Medical & Surgical Medical Problems: (1) Alteration in neurological status (2) Altered mental status (3) Ankle sprain (4) Cellulitis (5) Dizziness (6) Encounter for wound re-check (7) Endometriosis (8) Headache (9) Headache (10) Hx of ectopic (11) Infected insect bite of abdominal wall (12) Intractable headache (13) Lyme disease (14) Nausea (15) Pain, dental (16) Paresthesia of left leg (17) Right knee pain (18) Sepsis (19) Severe headache (20) Syncope (21) Tachycardia (22) Unresponsive episode (23) UTI (urinary tract infection) (24) Vaginal bleeding in patient at less than 20 weeks gestation (25) Vertigo (26) Weakness (27) Weakness of left foot Surgical Problems: (1) Chiari malformation Family History FH: mental illness Heart disease Social History Smoking Status: Never Smoker Alcohol Use: none Drug Use: none Marital Status: , other Housing Status: lives with family Occupation Status: employed Current/Historical Medications Scheduled Cyanocobalamin (B-12), 1,000 MCG PO DAILY Ranitidine (Zantac), 150 MG PO BID Topiramate (Topamax ), 25 MG PO BID Scheduled PRN Meclizine Hcl (Meclizine Hcl), 25 MG PO TID PRN for dizziness Polyethylene (Miralax), 17 GM PO DAILY PRN for Constipation Sumatriptan Succinate (Imitrex), 50 MG PO PRN PRN for Migraine Allergies Coded Allergies: Fish Allergy (Verified Allergy, Unknown, SEAFOOD ALLERGY, 10/23/17) PASS OUT Albuterol (Verified Adverse Reaction, Mild, PASS OUT, 10/23/17) Physical Exam Vital Signs Date Time Temp Pulse Resp B/P (MAP) Pulse Ox O2 Delivery O2 Flow Rate FiO2 10/23/17 07:32 85 18 103/63 98 Room Air 10/23/17 06:36 96 16 133/80 97 Room Air 10/23/17 05:42 84 16 130/78 99 Room Air 10/23/17 04:07 36.7 102 18 121/76 98 Room Air Physical Exam GENERAL: Patient is well appearing, smiling, laughing, and in no acute distress. HEENT: No acute trauma, normocephalic atraumatic, mucous membranes moist, no nasal congestion, no scleral icterus. NECK: No stridor, no adenopathy, no meningismus, trachea is midline. LUNGS: No dyspnea. Clear to auscultation and equal bilaterally. No wheeze, no rhonchi. HEART: Regular rate and rhythm. No murmurs, rubs, gallops appreciated. ABDOMEN: Soft, nontender, bowel sounds positive, no masses appreciated, no peritonitis. BACK: No midline tenderness, no CVA tenderness EXTREMITIES: Patient claims inability to move or feel below the knee, claims pain with palpitation with knee on left side, no cyanosis, no edema. NEUROLOGIC: Alert and oriented, no acute motor or sensory deficits, no focal weakness, cranial nerves grossly intact. SKIN: No rash, no jaundice, no diaphoresis. Medical Decision & Procedures ER Provider Diagnostic Interpretation: Radiology results and stated below per my review and radiologist interpretation: LUMBAR SPINE 2 OR 3 VIEWS CLINICAL HISTORY: 36 years-old Female presenting with low back pain s/p fall. TECHNIQUE: Frontal, lateral, and coned in lateral views of the lumbar spine were obtained. COMPARISON: 09/20/2017. FINDINGS: No significant scoliosis. Normal lumbar lordosis. Limbus vertebral body noted at L4. Vertebral bodies maintain normal height and alignment. Intervertebral disc spaces preserved. Minimal degenerative change noted at L1-2 and T11-12. No radiographic evidence of osseous neural foraminal narrowing. No compression deformity or subluxation is apparent. Nonobstructive bowel gas pattern. No gross pneumoperitoneum. IMPRESSION: No radiographic evidence of acute osseous injury of the lumbar spine. Electronically signed by: Gordon Hilliard M.D. 10/23/2017 6:[address] HEAD: Comparison: CT and MRI dated 09/15/2017. No evidence of acute intracranial abnormality or change compared to prior CT. Stable postsurgical changes of suboccipital craniectomy for Chiari decompression with cerebellar tonsillar ectopia (incompletely imaged). Radiologist: Erum Smith MD Laboratory Results 10/23/17 04:40 Red Blood Count 4.64, Mean Corpuscular Volume 84.9, Mean Corpuscular Hemoglobin 28.2, Mean Corpuscular Hemoglobin Concent 33.2, Mean Platelet Volume 11.0, Neutrophils (%) (Auto) 78.4, Lymphocytes (%) (Auto) 15.5, Monocytes (%) (Auto) 4.6, Eosinophils (%) (Auto) 1.1, Basophils (%) (Auto) 0.1, Neutrophils # (Auto) 5.75, Lymphocytes # (Auto) 1.14, Monocytes # (Auto) 0.34, Eosinophils # (Auto) 0.08, Basophils # (Auto) 0.01 10/23/17 04:40 Test 10/23/17 04:40 White Blood Count 7.34 K/uL (4.8-10.8) Red Blood Count 4.64 M/uL (4.2-5.4) Hemoglobin 13.1 g/dL (12.0-16.0) Hematocrit 39.4 % (37-47) Mean Corpuscular Volume 84.9 fL (80-100) Mean Corpuscular Hemoglobin 28.2 pg (25-34) Mean Corpuscular Hemoglobin Concent 33.2 g/dl (32-36) Platelet Count 195 K/uL (130-400) Mean Platelet Volume 11.0 fL (7.4-10.4) Neutrophils (%) (Auto) 78.4 % Lymphocytes (%) (Auto) 15.5 % Monocytes (%) (Auto) 4.6 % Eosinophils (%) (Auto) 1.1 % Basophils (%) (Auto) 0.1 % Neutrophils # (Auto) 5.75 K/uL (1.4-6.5) Lymphocytes # (Auto) 1.14 K/uL (1.2-3.4) Monocytes # (Auto) 0.34 K/uL (0.11-0.59) Eosinophils # (Auto) 0.08 K/uL (0-0.5) Basophils # (Auto) 0.01 K/uL (0-0.2) RDW Standard Deviation 42.4 fL (36.4-46.3) RDW Coefficient of Variation 13.9 % (11.5-14.5) Immature Granulocyte % (Auto) 0.3 % Immature Granulocyte # (Auto) 0.02 K/uL (0.00-0.02) D-Dimer 490 ug/L FEU (0-500) Anion Gap 4.0 mmol/L (3-11) Est Creatinine Clear Calc Drug Dose 84.3 ml/min Estimated GFR () 78.8 Estimated GFR (Non- 68.0 BUN/Creatinine Ratio 9.9 (10-20) Calcium Level 8.6 mg/dl (8.5-10.1) Total Creatine Kinase 52 U/L (26-192) Troponin I < 0.015 ng/ml (0-0.045) Laboratory results as reviewed by me. ECG Indication: syncope Rate (beats per minute): 84 Rhythm: normal sinus Findings: no acute ischemic change, no ectopy Change: EKG: Electrocardiogram per my interpretation. ED Course 0430: The patient was evaluated in room B2. A complete history and physical exam was performed. 0715: Upon reevaluation, the patient will be further evaluated. I spoke to Dr. Hood. Discussed results and treatment plan with the patient. She verbalized understanding and agreement with the treatment plan. The patient will be evaluated for further management. Medical Decision Differential: Sepsis, Infectious (UTI/Pneumonia/Meningitis/etc), Metabolic/ Electrolyte Abnormality, Cardiac, Dehydration, Anemia, Hepatic, Endocrine, Toxicologic, Neurologic, amongst other pathologies entertained. 36 yr old female with very suspicious story that I am concerned represents malingering given the surrounding story along with the extensive previous work- ups. Regardless she arrives post reported seizure unable to now feel nor move left left from knee down (starts in very circumferential pattern around left knee). This is not consistent with anatomic/neurologic disorder and I made clear to her my concerns this is psychiatric/conversion which she adamantly denies. Multiple EMS personnel report patient had been in verbal argument on phone just prior to this event occurring, patient however completely denies any argument. I do not feel this is PE/cardiac cause of syncope and work-up is benign for them.. With the work-up she has had I have very little suspicion this is actual medical issue, but it is tough to completely rule out and something like seizure or bizarre guillain-barre as possible cause, though these seem very unlikely. I have no way to discharge her home without just dealing with fact she will not walk with this leg issue. Contacted hospitalists who know her well for further input on this patient. Head Trauma GCS Score: 15 Medication Reconcilliation Current Medication List: was personally reviewed by me Blood Pressure Screening Patient's blood pressure: Normal blood pressure Blood pressure disposition: Did not require urgent referral Consults Time Called: 703 Consulting Physician: Dr. Hood - Hospitalist Returned Call: 07 Discussed the patient's case. The patient will be evaluated for further treatment and disposition. Impression Primary Impression: Ambulatory dysfunction Additional Impression: Left leg weakness Scribe Attestation The scribe's documentation has been prepared under my direction and personally reviewed by me in its entirety. I confirm that the note above accurately reflects all work, treatment, procedures, and medical decision making performed by me. Departure Information Dispostion Being Evaluated By Hospitalist Referrals Guillermo Fink M.D. (PCP) Forms HOME CARE DOCUMENTATION FORM, IMPORTANT VISIT INFORMATION Patient Instructions My [facility] Problem Qualifiers
[2017-10-23 05:21] LABS: BLOOD UREA NITROGEN 11 mg/dl (7-18); CALCIUM 8.6 mg/dl (8.5-10.1); CARBON DIOXIDE 22 mmol/L (21-32); CREATININE 1.06 mg/dl (0.60-1.20); GLUCOSE 99 mg/dl (70-99); POTASSIUM 3.6 mmol/L (3.5-5.1); SODIUM 137 mmol/L (136-145)
--- NOTE | 2017-10-23 06:14 | DIAGNOSTIC IMAGING REPORT ---
LUMBAR SPINE 2 OR 3 VIEWS CLINICAL HISTORY: 36 years-old Female presenting with low back pain s/p fall. TECHNIQUE: Frontal, lateral, and coned in lateral views of the lumbar spine were obtained. COMPARISON: 09/20/2017. FINDINGS: No significant scoliosis. Normal lumbar lordosis. Limbus vertebral body noted at L4. Vertebral bodies maintain normal height and alignment. Intervertebral disc spaces preserved. Minimal degenerative change noted at L1-2 and T11-12. No radiographic evidence of osseous neural foraminal narrowing. No compression deformity or subluxation is apparent. Nonobstructive bowel gas pattern. No gross pneumoperitoneum. IMPRESSION: No radiographic evidence of acute osseous injury of the lumbar spine. Electronically signed by: Gordon Hilliard M.D. 10/23/2017 6:13 AM Dictated Date/Time: 10/23/2017 6:11 AM
--- NOTE | 2017-10-23 06:39 | DIAGNOSTIC IMAGING REPORT ---
HEAD WITHOUT CONTRAST (CT) CLINICAL HISTORY: 36 years-old Female presenting with syncope. TECHNIQUE: Multidetector CT imaging of the head was performed without the use of intravenous contrast. IV contrast: None. A dose lowering technique was used consistent with the principles of ALARA (as low as reasonably achievable). COMPARISON: 09/20/2017. CT DOSE (mGy.cm): The estimated cumulative dose is 537.48 mGy.cm. 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 Ventricles and sulci normal in size. Postsurgical changes of suboccipital craniectomy. Cerebellar tonsillar ectopia noted with crowding of the foramen magnum, unchanged. Brain parenchyma normal in appearance with preserved gordon-white differentiation. No mass effect or midline shift. No hemorrhage or acute territorial infarct. No extra-axial fluid collection. Paranasal sinuses and mastoid air cells clear. Calvarium intact. IMPRESSION: 1. No acute intracranial abnormality. 2. Postsurgical change of suboccipital craniectomy with tonsillar ectopia. Electronically signed by: Gordon Hilliard M.D. 10/23/2017 6:37 AM Dictated Date/Time: 10/23/2017 6:35 AM
[2017-10-23] MEDS ORDERED: ACETAMINOPHEN 325 MG TAB PO PRN (09:00)
[2017-10-23] MEDS ORDERED: POLYETHYLENE (MIRALAX) 17 GM PACK PO PRN (09:15)
[2017-10-23] MEDS ORDERED: SUMATRIPTAN SUCCINATE 50 MG TAB PO PRN (09:15)
--- NOTE | 2017-10-23 09:21 | History and Physical ---
History & Physical Date & Time of Service: Oct 23, 2017 at 09:03 Chief Complaint: Passing out, left leg weakness Primary Care Physician: Guillermo Fink M.D. History of Present Illness Source: patient, partner This patient is a very pleasant 36-year-old obese female with a history of migraine headaches, Chiari malformation status post craniectomy in 2016, GERD, B12 deficiency, depression with psychosis, vitiligo, and previous syncope, who presents with recurrent syncope and left leg weakness and numbness. She reports she got out of bed to walk to the bathroom early this morning and just dropped to the ground and thinks she had loss of consciousness. She is not sure if she hit her head on the hardwood floor, and complains of a mild headache. After waking up, she felt like her left leg was completely numb and weak from the knee down. That is now resolving. Prior to passing out, she denies chest pain or heart palpitations, denies shortness of breath. She was having multiple episodes of syncope later last year, then was admitted here with this very similar presentation about 1 month ago. Review of the records and in talking to the patient revealed that she has had a tilt table test that was negative many years ago, and normal echocardiogram in 2014, and she reports having a Holter monitor that was normal last year. She has had a thorough neurological evaluation both inpatient and outpatient with Dr. Sparks to include an EMG/NCS of the left lower extremity which she reports was negative. She had a lumbar spine MRI which showed mild degenerative disease last admission. Her CT of the head here showed post craniectomy changes but nothing acute. Lumbar spine x-rays here show nothing acute. She will be admitted for workup of her recurrent syncope of unknown etiology. 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 Suboccipital craniectomy for Chiari malformation Family History FH: mental illness Heart disease Mom with hypothyroidism Dad with borderline diabetes mellitus type 2 Grandparents with hypertension Social History Smoking Status: Never Smoker Alcohol Use: none Drug Use: none Marital Status: other (Engaged) Housing status: lives with family Occupational Status: unemployed Immunizations History of Influenza Vaccine: Yes Influenza Vaccine Date: Jul 12, 2008 History of Tetanus Vaccine?: states up to date Tetanus Immunization Date: Sep 13, 2007 History of Pneumococcal: No History of Hepatitis B Vaccine: Yes Hepatitis Immunization Date: Oct 14, 2007 Multi-Drug Resistant Organisms History of MDRO: No Allergies Coded Allergies: Fish Allergy (Verified Allergy, Unknown, SEAFOOD ALLERGY, 10/23/17) PASS OUT Albuterol (Verified Adverse Reaction, Mild, PASS OUT, 10/23/17) Home Medications Scheduled Cyanocobalamin (B-12), 1,000 MCG PO DAILY Ranitidine (Zantac), 150 MG PO BID Topiramate (Topamax ), 25 MG PO BID Scheduled PRN Meclizine Hcl (Meclizine Hcl), 25 MG PO TID PRN for dizziness Polyethylene (Miralax), 17 GM PO DAILY PRN for Constipation Sumatriptan Succinate (Imitrex), 50 MG PO PRN PRN for Migraine Review of Systems Constitutional: No fever, No chills Eyes: No problem reported ENT: No problem reported Respiratory: No shortness of breath Cardiovascular: No chest pain, No palpitations Abdomen: No pain, No nausea, No vomiting, No diarrhea, No constipation, No GI bleeding Musculoskeletal: + problem reported (Chronic lower back pain) Genitourinary - Female: No problem reported Neurologic: + numbness/tingling Psychiatric: No problem reported Endocrine: No problem reported Hematologic / Lymphatic: No problem reported Integumentary: No problem reported Allergic / Immunologic: No problem reported Physical Exam Vital Signs Date Time Temp Pulse Resp B/P (MAP) Pulse Ox O2 Delivery O2 Flow Rate FiO2 10/23/17 07:32 85 18 103/63 98 Room Air 10/23/17 06:36 96 16 133/80 97 Room Air 10/23/17 05:42 84 16 130/78 99 Room Air 10/23/17 04:07 36.7 102 18 121/76 98 Room Air General Appearance: WD/WN, no apparent distress, + obese Head: normocephalic, atraumatic Eyes: normal inspection, PERRL, EOMI, sclerae normal ENT: normal ENT inspection, hearing grossly normal, pharynx normal Neck: supple, no adenopathy, thyroid normal, no JVD, no carotid bruits, trachea midline Respiratory/Chest: lungs clear, normal breath sounds, no respiratory distress, no accessory muscle use Cardiovascular: regular rate, rhythm, no edema, no gallop, no JVD, no murmur, normal peripheral pulses Abdomen/GI: normal bowel sounds, non tender, soft, no organomegaly, no pulsatile mass Back: normal inspection, no CVA tenderness, no muscle spasm, normal range of motion, + pertinent finding (No tenderness to palpation over the spinous processes or paraspinal musculature) Extremities/Musculoskelatal: normal inspection, no calf tenderness, normal capillary refill, no pedal edema, normal range of motion, non-tender Neurologic/Psych: 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, no motor/sensory deficits (Has full strength throughout upper and lower extremities, sensation intact to light touch throughout), alert, normal mood/affect, normal reflexes (Except diminished bilaterally and symmetrically at 1+ throughout upper and lower extremities), oriented x 3, + pertinent finding (Gait tested and normal- provided contact guard assistance) Skin: normal color, warm/dry, no rash Lymphatic: no adenopathy Diagnostics Laboratory Results Results Past 24 Hours Test 10/23/17 04:40 10/23/17 08:53 Range/Units White Blood Count 7.34 4.8-10.8 K/uL Red Blood Count 4.64 4.2-5.4 M/uL Hemoglobin 13.1 12.0-16.0 g/dL Hematocrit 39.4 37-47 % Mean Corpuscular Volume 84.9 80-100 fL Mean Corpuscular Hemoglobin 28.2 25-34 pg Mean Corpuscular Hemoglobin Concent 33.2 32-36 g/dl Platelet Count 195 130-400 K/uL Mean Platelet Volume 11.0 7.4-10.4 fL Neutrophils (%) (Auto) 78.4 % Lymphocytes (%) (Auto) 15.5 % Monocytes (%) (Auto) 4.6 % Eosinophils (%) (Auto) 1.1 % Basophils (%) (Auto) 0.1 % Neutrophils # (Auto) 5.75 1.4-6.5 K/uL Lymphocytes # (Auto) 1.14 1.2-3.4 K/uL Monocytes # (Auto) 0.34 0.11-0.59 K/uL Eosinophils # (Auto) 0.08 0-0.5 K/uL Basophils # (Auto) 0.01 0-0.2 K/uL RDW Standard Deviation 42.4 36.4-46.3 fL RDW Coefficient of Variation 13.9 11.5-14.5 % Immature Granulocyte % (Auto) 0.3 % Immature Granulocyte # (Auto) 0.02 0.00-0.02 K/uL D-Dimer 490 0-500 ug/L FEU Sodium Level 137 136-145 mmol/L Potassium Level 3.6 3.5-5.1 mmol/L Chloride Level 111 98-107 mmol/L Carbon Dioxide Level 22 21-32 mmol/L Anion Gap 4.0 3-11 mmol/L Blood Urea Nitrogen 11 7-18 mg/dl Creatinine 1.06 0.60-1.20 mg/dl Est Creatinine Clear Calc Drug Dose 84.3 ml/min Estimated GFR () 78.8 Estimated GFR (Non- 68.0 BUN/Creatinine Ratio 9.9 10-20 Random Glucose 99 70-99 mg/dl Calcium Level 8.6 8.5-10.1 mg/dl Total Creatine Kinase 52 26-192 U/L Troponin I < 0.015 0-0.045 ng/ml Diagnostic Radiology CT of the head-NAD, evidence of previous craniectomy in the suboccipital region Lumbar spine [id number] degenerative change, no acute osseous injury EKG Normal sinus rhythm, no ischemic changes, intervals are normal Impression Assessment and Plan This patient is a very pleasant 36-year-old obese female with a history of migraine headaches, Chiari malformation status post craniectomy in 2016, GERD, B12 deficiency, depression with psychosis, vitiligo, and previous syncope, who presents with recurrent syncope and left leg weakness and numbness. She reports she got out of bed to walk to the bathroom early this morning and just dropped to the ground and thinks she had loss of consciousness. She is not sure if she hit her head on the hardwood floor, and complains of a mild headache. After waking up, she felt like her left leg was completely numb and weak from the knee down. That is now resolving. Prior to passing out, she denies chest pain or heart palpitations, denies shortness of breath. She was having multiple episodes of syncope later last year, then was admitted here with this very similar presentation about 1 month ago. Review of the records and in talking to the patient revealed that she has had a tilt table test that was negative many years ago, and normal echocardiogram in 2015, and she reports having a Holter monitor that was normal last year. She has had a thorough neurological evaluation both inpatient and outpatient with Dr. Sparks to include an EMG/NCS of the left lower extremity which she reports was negative. She had a lumbar spine MRI which showed mild degenerative disease last admission. Her CT of the head here showed post craniectomy changes but nothing acute. Lumbar spine x-rays here show nothing acute. She will be admitted for workup of her recurrent syncope of unknown etiology. Syncope-could be vasovagal, she has had tachycardic episodes and past admissions -could be POTS. ECG here is normal, troponin is negative, electrolytes and CBC are within normal limits. -Admit to telemetry for observation -Repeat echocardiogram -Consult cardiology for further input on evaluation -Check orthostatic vital signs Left leg weakness/numbness-has associated lower back pain, but has had thorough workup as above. Neurological exam is completely normal in the emergency room today and she was able to ambulate for me. Review of outpatient neurological notes report normal EMG of the left lower extremity, MRI of the C-spine and L- spine normal last admission. Neurology signed off on her case and said they can find nothing neurological to support her symptoms. Suspected functional disorder. -Continue to observe Depression with psychosis-stable at this time, suspect possible somatization. She is not on any medications -Consider psychiatry consult if symptoms worsen during hospitalization Migraine headaches/history of craniectomy for Chiari malformation-stable at this time -Continue Topamax 25 mg p.o. twice daily and Imitrex as needed -Follow-up with neurology outpatient B12 deficiency-diagnosed last admission with a B12 of 198 -Check B12 now -Continue p.o. B12 and consider IM injections if needed GERD-stable -Continue ranitidine Prophylaxis-Lovenox 40 mg subcu once daily Disposition-likely discharge tomorrow Level of Care Telemetry Resuscitation Status FULL RESUSCITATION VTE Prophylaxis VTE Risk Assessment Done? Y/N: Yes Risk Level: Low Given or contraindicated: Enoxaparin (Lovenox)SQ Additional Copies To Harjinder Sparks M.D.; Guillermo Fink M.D.
[2017-10-23] MEDS ORDERED: IV FLUIDS COMPLETED PRN (14:15)
[2017-10-23 14:28] VITALS: BP 124/83; PULSE 93; TEMP 37.1; O2SAT 96; Ht 157.5 cm; Wt 95.9 kg
[2017-10-23 15:42] VITALS: BP_SYST 122; BP_SYST 126; BP_SYST 134; BP_DIAS 80; BP_DIAS 85; PULSE 106; PULSE 108; PULSE 95; TEMP 37; O2SAT 98
[2017-10-23 16:00] VITALS: O2SAT 98
[2017-10-23 19:18] VITALS: BP 105/72; PULSE 83; TEMP 37.1; O2SAT 97
[2017-10-23] MEDS: TOPIRAMATE 25 MG TAB PO SCH (20:05)
[2017-10-23] MEDS: RANITIDINE HCL 150 MG TAB PO SCH (20:06)
[2017-10-23] MEDS ORDERED: ENOXAPARIN 40 MG/0.4 ML SYR SC SCH (22:00)
[2017-10-23 23:58] VITALS: BP 101/68; PULSE 83; TEMP 36.9; O2SAT 97
[2017-10-24 04:03] VITALS: BP 112/74; PULSE 97; TEMP 37.2; O2SAT 97
[2017-10-24 07:54] VITALS: BP 113/75; PULSE 92; TEMP 37.7; O2SAT 99
[2017-10-24] MEDS: RANITIDINE HCL 150 MG TAB PO SCH (08:07)
[2017-10-24] MEDS: TOPIRAMATE 25 MG TAB PO SCH (08:07)
--- NOTE | 2017-10-24 08:08 | Progress Note ---
Subjective Date of Service: Oct 24, 2017. Problem List Medical Problems: (1) Ambulatory dysfunction Status: Acute (2) Cephalalgia Status: Acute (3) Change in mental status Status: Acute (4) Contusion of multiple sites Status: Acute (5) Contusion of right knee Status: Acute (6) Dehydration Status: Acute (7) Fall Status: Acute (8) Fall Status: Acute (9) Knee pain Status: Acute (10) Left leg weakness Status: Acute (11) Migraine headache Status: Acute (12) Paresthesia Status: Acute (13) Right arm weakness Status: Acute (14) Sinusitis, acute Status: Acute (15) Sleep deprivation Status: Acute (16) Syncope Status: Acute Objective Vital Signs Date Time Temp Pulse Resp B/P (MAP) Pulse Ox O2 Delivery O2 Flow Rate FiO2 10/24/17 07:54 37.7 92 18 113/75 (88) 99 Room Air 10/24/17 04:05 Room Air 10/24/17 04:03 37.2 97 19 112/74 (87) 97 Room Air 10/24/17 00:00 Room Air 10/23/17 23:58 36.9 83 17 101/68 (79) 97 Room Air 10/23/17 20:00 Room Air 10/23/17 19:18 37.1 83 18 105/72 (83) 97 Room Air 10/23/17 16:00 98 Room Air 10/23/17 15:42 37.0 95 21 122/80 (94) 98 Room Air 106 126/85 (99) 108 134/85 (101) 10/23/17 14:28 37.1 93 20 124/83 96 Room Air 10/23/17 13:50 37.0 104 18 96/63 96 10/23/17 13:07 107 10/23/17 12:46 110 18 104/65 98 Room Air 10/23/17 11:08 90 18 111/64 98 Room Air 10/23/17 09:14 82 10/23/17 09:12 85 18 112/66 99 Room Air Laboratory Results Last 24 Hours Test 10/23/17 10:19 10/23/17 16:00 Vitamin B12 Level 487 pg/mL Urine Color YELLOW Urine Appearance CLEAR Urine pH 6.5 Urine Specific [place] 1.022 Urine Protein NEG Urine Glucose (UA) NEG Urine Ketones 1+ Urine Occult Blood NEG Urine Nitrite NEG Urine Bilirubin NEG Urine Urobilinogen NEG Urine Leukocyte Esterase MODERATE Urine WBC (Auto) 10-30 /hpf Urine RBC (Auto) 0-4 /hpf Urine Hyaline Casts (Auto) 1-5 /lpf Urine Epithelial Cells (Auto) >30 /lpf Urine Bacteria (Auto) NEG Urine Test NEG Urine Opiates Screen NEG Urine Methadone, Qualitative NEG Urine Barbiturates NEG Urine Phencyclidine (PCP) Level NEG Ur Amphetamine/Methamphetamine NEG MDMA (Ecstasy) Screen NEG Urine Benzodiazepines Screen NEG Urine Cocaine Metabolite NEG Urine Marijuana (THC) NEG Assessment and Plan 36-year-old obese female with syncope and a history of migraine headaches, Chiari malformation status post craniectomy in 2016, depression with psychosis. previous extensive workup of syncope and neuropathic complaints have not revealed a physiologic cause She was observed for recurrent syncope of unknown etiology. Syncope-possibly vasovagal, ECG here is normal, troponin is negative, electrolytes and CBC are within normal limits. -Admit to telemetry for observation, pending echocardiogram -Consult cardiology Left leg weakness/numbness-has associated lower back pain, but has had thorough workup as above. Neurological exam is completely normal in the emergency room and she was able to ambulate. Previous outpatient neurological notes report normal EMG of the left lower extremity, MRI of the C-spine and L-spine normal last admission. Neurology signed off on her case and said they can find nothing neurological to support her symptoms. Suspected functional disorder. Depression with psychosis, suspect possible somatization. will suggest referral as out pt Migraine headaches/history of craniectomy for Chiari malformation-stable at this time remains on Topamax 25 mg p.o. twice daily and Imitrex as needed B12 deficiency-diagnosed last admission with a B12 of 198 JSNA-valpao-Tsfondsf ranitidine Prophylaxis-Lovenox 40 mg subcu once daily
[2017-10-24] MEDS ORDERED: CYANOCOBALAMIN 500 MCG TAB (VIT B-12) PO SCH (09:00)
--- NOTE | 2017-10-24 10:59 | Discharge Instructions ---
Discharge Instructions Date of Service Oct 24, 2017. Admission Reason for Admission: Syncope Discharge Discharge Diagnosis / Problem: neuropathy, syncope Discharge Goals Goal(s): Diagnostic testing, Therapeutic intervention Activity Recommendations Activity Limitations: as noted below Lifting Limitations: gradually increase as tolerated . Current Hospital Diet Patient's current hospital diet: Regular Diet Discharge Diet Recommended Diet: Regular Diet Pending Studies Studies pending at discharge: no Laboratory Results Hemoglobin A1c Test 10/01/17 14:06 Range/Units Estimated Average Glucose 94 mg/dl Hemoglobin A1c 4.9 4.5-5.6 % Medical Emergencies . Who to Call and When: Medical Emergencies: If at any time you feel your situation is an emergency, please call 911 immediately. . Non-Emergent Contact Non-Emergency issues call your: Primary Care Provider Call Non-Emergent contact if: temperature is above 101, your pain is unusual for you . . "Provider Documentation" section prepared by Erwin Villanuvea. . VTE Core Measure Inpt VTE Proph given/why not?: Enoxaparin (Lovenox)SQ
[2017-10-24 11:35] VITALS: BP 101/69; PULSE 91; TEMP 36.8; O2SAT 96
[2017-10-24 12:05] VITALS: BP 101/69; PULSE 91; TEMP 36.8; O2SAT 96
--- NOTE | 2017-10-24 14:20 | ECHOCARDIOGRAM REPORT ---
*NOTICE TO RECEIVING CONSTITUTION PARTY AGENCY This information is strictly Confidential and protected under [place] law. [place] law prohibits you from making any further disclosure of this information unless further disclosure is expressly permitted by the written consent of the person to whom it pertains or is authorized by law. A general authorization for the release of medical or other information is not sufficient for this purpose. Hospital accepts no responsibility if the information is made available to any other person, INCLUDING THE PATIENT. Interpretation Summary * Name: FAMILIA TIDWELL Study Date: 10/24/2017 06:36 AM BP: 111/64 mmHg * Patient Location: C.2T\S\S241\S\2 HR: 76 * : 1980 (M/d/yyyy) Gender: Female Height: 62 in * Age: 36 yrs Ethnicity: CA Weight: 231 lb * Ordering Physician: Nayeli Draper * Referring Physician: Self, Referred * Performed By: Sctot Westfall RDCS * * Reason For Study: Syncope * BSA: 2.0 m2 * -- Conclusions -- * Left ventricular systolic function is normal. * No regional wall motion abnormalities noted. * Ejection Fraction = 65-70%. * There is mild tricuspid regurgitation. Procedure Details * A complete two-dimensional transthoracic echocardiogram was performed (2D, M-mode, Doppler and color flow Doppler). * The study was technically adequate. Left Ventricle * The left ventricle is normal in size. * There is normal left ventricular wall thickness. * Ejection Fraction = 65-70%. * Left ventricular systolic function is normal. * No regional wall motion abnormalities noted. Right Ventricle * The right ventricle is normal size. * The right ventricular systolic function is normal as assessed by tricuspid annular plane systolic excursion (TAPSE) (normal >1.5 cm). Atria * The left atrium is mildly dilated. * Right atrium not well visualized. * No ASD detected; PFO is not assessed. Mitral Valve * The mitral valve is grossly normal. * There is no mitral valve stenosis. * Significant mitral regurgitation is absent. Tricuspid Valve * The tricuspid valve is not well visualized, but is grossly normal. * There is no tricuspid stenosis. * There is mild tricuspid regurgitation. Aortic Valve * The aortic valve is normal in structure and function. * No hemodynamically significant valvular aortic stenosis. * No aortic regurgitation is present. Pulmonic Valve * The pulmonary valve is not well seen, but the Doppler examination is normal without significant regurgitation or stenosis. Great Vessels * The aortic root is normal size. * The pulmonary is not well visualized. Pericardium/Pleural * There is no pericardial effusion. Great Vessels * Normal inferior vena cava size and collapsability with sniff indicates a normal right atrial pressure of 3 mmHg MMode 2D Measurements and Calculations IVSd 1.1 cm LVIDd 4.0 cm LVPWd 1.2 cm IVS/LVPW 0.98 EDV(Teich) 71.9 ml EDV(cubed) 66.2 ml LV mass(C)d 157.2 grams LV mass(C)dI 77.4 grams/m\S\2 Ao root diam 3.1 cm Ao root area 7.6 cm\S\2 ACS 1.9 cm LA dimension 3.8 cm asc Aorta Diam 3.0 cm LA/Ao 1.2 LVOT diam 2.0 cm LVOT area 3.0 cm\S\2 LVAd ap4 18.9 cm\S\2 LVLd ap4 7.5 cm EDV(MOD-sp4) 41.6 ml EDV(sp4-el) 40.3 ml LVAs ap4 8.4 cm\S\2 LVLs ap4 5.9 cm ESV(MOD-sp4) 11.2 ml ESV(sp4-el) 10.1 ml EF(MOD-sp4) 73.0 % EF(sp4-el) 74.9 % LVAd ap2 21.0 cm\S\2 LVLd ap2 7.7 cm EDV(MOD-sp2) 49.0 ml EDV(sp2-el) 48.5 ml LVAs ap2 10.5 cm\S\2 LVLs ap2 6.4 cm ESV(MOD-sp2) 14.4 ml ESV(sp2-el) 14.6 ml EF(MOD-sp2) 70.5 % EF(sp2-el) 69.8 % LVLd %diff 2.8 % EDV(MOD-bp) 45.1 ml LVLs %diff 8.8 % ESV(MOD-bp) 12.9 ml EF(MOD-bp) 71.3 % SV(MOD-sp4) 30.3 ml SI(MOD-sp4) 14.9 ml/m\S\2 SV(MOD-sp2) 34.5 ml SI(MOD-sp2) 17.0 ml/m\S\2 SV(MOD-bp) 32.1 ml SI(MOD-bp) 15.8 ml/m\S\2 SV(sp4-el) 30.2 ml SI(sp4-el) 14.9 ml/m\S\2 SV(sp2-el) 33.9 ml SI(sp2-el) 16.7 ml/m\S\2 Doppler Measurements and Calculations MV E max leonardo 68.3 cm/sec MV A max leonardo 55.3 cm/sec MV E/A 1.2 MV dec time 0.23 sec Ao V2 max 115.6 cm/sec Ao max PG 5.3 mmHg Ao max PG (full) 2.6 mmHg GIANCARLO(V,A) 2.2 cm\S\2 GIANCARLO(V,D) 2.2 cm\S\2 LV V1 max PG 2.8 mmHg LV V1 max 83.1 cm/sec PA V2 max 79.4 cm/sec PA max PG 2.5 mmHg PI end-d leonardo 79.4 cm/sec
--- NOTE | 2017-10-24 14:34 | CARDIOLOGY CONSULTATION ---
DATE OF CONSULTATION: 10/24/2017 PERTINENT HISTORY: Mrs. Land is a 36-year-old white female with a history of recurrent unexplained syncope. The patient experienced an episode of syncope on the morning of August 22 and was hospitalized. This consultation was ordered to assist in her management. The patient was in her usual state of health until the day of presentation. While walking across the living room, on the way to the bathroom, the patient "just dropped" to the floor. She had an apparent loss of consciousness according to her report. She developed her typical weakness and paresthesias of the left upper and lower extremities. This has been a longstanding finding when she experiences an episode of her recurrent syncope. She had no premorbid nausea, vomiting, or diaphoresis. The patient did have a tilt table test performed by myself back in May 2005 for her recurrent syncope. Currently, the patient is resting comfortably in bed and without complaints. PAST MEDICAL HISTORY: 1. Recurrent syncope. 2. GERD. 3. Chiari malformation. 4. Status post suboccipital craniectomy -- 2015. 5. Migraine headaches. 6. Vitiligo. 7. Endometriosis. 8. Depression with psychosis. 9. Vitamin B12 deficiency. MEDICATIONS: 1. Topamax 25 mg b.i.d. 2. Vitamin B12 1000 mcg daily. 3. Ranitidine 150 mg b.i.d. ALLERGIES: ALBUTEROL. SOCIAL HISTORY: The patient is single and lives alone. Does not use tobacco. Alcohol use is rare. FAMILY HISTORY: No early coronary artery disease. REVIEW OF SYSTEMS: A 10-point review of systems was negative except for that described above. PHYSICAL EXAMINATION: GENERAL: This is an obese white female lying supine in bed without complaints. VITAL SIGNS: Blood pressure is 110/70 with a regular pulse of 80. Respiratory was 18. The patient is afebrile at 36.8 degrees Celsius. Saturations 96% on room air. HEENT: Negative. NECK: Supple with full carotid upstrokes. No carotid bruits. Jugular venous pressure is flat at 90 degrees. There is no thyromegaly. CARDIOVASCULAR: Reveals a regular rhythm with normal S1 and S2. No S3, S4, or murmurs are noted. LUNGS: Clear without rales, rhonchi, or wheezes. ABDOMEN: Soft and nontender without bruits. EXTREMITIES: Reveal intact radial artery pulses bilaterally. There is no peripheral edema. DATA: CBC notes a hemoglobin of 13.1, hematocrit 39.4, white count 7.3, platelet count 195,000. Electrolytes note a sodium 137, potassium 3.6, chloride 111, bicarb 22, BUN 11, creatinine 1.06, glucose 99. Troponin I level is undetectable at less than 0.015. TSH is normal at 1.31. EKG notes normal sinus rhythm without abnormalities. 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 IMPRESSION: Mrs. Land was admitted again with one of her recurrent episodes of syncope. Her prior workup has been negative including a tilt table test. No significant cardiac dysrhythmia has been identified. No further cardiac workup is necessary at this time. PLAN: 1. Continue usual outpatient medications. 2. Stable for hospital discharge.
--- NOTE | 2017-10-26 09:47 | Discharge Summary ---
Discharge Summary Date of Service Oct 24, 2017. Discharge Summary Admission Date: Oct 23, 2017 at 09:02 Discharge Date: Oct 24, 2017 Discharge Disposition: Home Principal Diagnosis: transient weakness Immunizations: Have You Had Influenza Vaccine: Yes Influenza Vaccine Date: Jul 12, 2008 History of Tetanus Vaccine?: states up to date Tetanus Immunization Date: Sep 13, 2007 History of Pneumococcal: No History of Hepatitis B Vaccine: Yes Hepatitis Immunization Date: Oct 14, 2007 Medication Reconciliation Continued Medications: Cyanocobalamin (B-12) 1,000 Mcg Tab 1000 MCG PO DAILY, #30 TABS 11 Refills Meclizine Hcl (Meclizine Hcl) 25 Mg Tab 25 MG PO TID PRN for dizziness for 10 Days, #30 TAB Polyethylene (Miralax) 17 Gm Pow 17 GM PO DAILY PRN for Constipation, #1 BTL 2 Refills can purchase [id number] Ranitidine (Zantac) 150 Mg Tab 150 MG PO BID, TAB Sumatriptan Succinate (Imitrex) 50 Mg Tab 50 MG PO PRN PRN for Migraine, TAB Topiramate (Topamax ) 25 Mg Tab 25 MG PO BID, TAB Discharge Exam Review of Systems: Constitutional: No fever, No chills Abdomen: No pain, No nausea Neurologic: No memory loss, No paralysis, No weakness Physical Exam: General Appearance: WD/WN, no apparent distress Neurologic/Psychiatric: alert, oriented x 3 Hospital Course 36-year-old obese female with syncope and a history of migraine headaches, Chiari malformation status post craniectomy in 2016, depression with psychosis. previous extensive workup of syncope and neuropathic complaints have not revealed a physiologic cause She was observed for recurrent syncope of unknown etiology, she had no recurrence and no persistence or re occurence of leg weakness Syncope-possibly vasovagal, ECG here is normal, troponin is negative, electrolytes and CBC are within normal limits. Left leg weakness/numbness-has associated lower back pain, but has had thorough workup as above. Neurological exam is completely normal in the emergency room and she was able to ambulate. Previous outpatient neurological notes report normal EMG of the left lower extremity, MRI of the C-spine and L-spine normal last admission. Neurology signed off on her case and said they can find nothing neurological to support her symptoms. Suspected functional disorder. Depression with psychosis, suspect possible somatization. discussed outpt consideration of psychiatry Migraine headaches/history of craniectomy for Chiari malformation-stable at this time remains on Topamax 25 mg p.o. twice daily and Imitrex as needed B12 deficiency-diagnosed last admission with a B12 of 198 [id number] ranitidine Total Time Spent: Greater than 30 minutes This includes examination of the patient, discharge planning, medication reconciliation, and communication with other providers. Discharge Instructions Please refer to the electronic Patient Visit Report (Discharge Instructions) for additional information.
== END 2017-10-24 12:11 | disposition home or self-care (01) ==
LOC: C.EDB 04:03 → C.2T 09:02 → ENRESERV 13:34
PROVIDERS: ADMIT Family Medicine; ATTEND Family Medicine
DX: R53.1 Weakness (principal); E66.01 Morbid (severe) obesity due to excess calories; G43.909 Migraine, unspecified, not intractable, without status migrainosus; Q07.00 Arnold-Chiari syndrome without spina bifida or hydrocephalus; Z98.890 Other specified postprocedural states; Z79.899 Other long term (current) drug therapy; Z88.8 Allergy status to other drugs, medicaments and biological substances; Z91.013 Allergy to seafood; Z82.49 Family history of ischemic heart disease and other diseases of the circulatory system; Z81.8 Family history of other mental and behavioral disorders

== ENCOUNTER 2018-12-03 20:34 | Inpatient (IN) ==
[2018-12-03] MEDS ORDERED: LEVALBUTEROL HCL 0.63 MG/3 ML NEB NEB STA ×2 (20:48→22:45)
[2018-12-03] MEDS ORDERED: SODIUM CHLORIDE 0.9% 1000ML 2,000 ML IV SCH (21:00)
--- NOTE | 2018-12-03 21:20 | XRay Report ---
XR chest 1V portable CLINICAL HISTORY: Dyspnea COMPARISON STUDY: Chest radiograph September 23, 2017. FINDINGS: Lung volumes are normal. Lungs are clear. There is no pneumothorax or pleural effusion. The re is no consolidation or evidence for pulmonary edema. Mild cardiomegaly is unchanged. Appearance of the chest is unchanged. IMPRESSION: 1. No acute cardiopulmonary findings. 2. Mild cardiomegaly. Electronically signed by: Michelet Cifuentes M.D. 12/03/2018 9:18 PM
[2018-12-03 21:52] LABS: Basophils # (auto) 0.01 K/uL (0-0.2); Basophils % (auto) 0.2 %; Eosinophils # (auto) 0.03 K/uL (0-0.5); Eosinophils % (auto) 0.5 %; Hematocrit (blood only) 36.8 % (37-47); Hemoglobin 12.4 g/dL (12.0-16.0); Immature Granulocytes # (auto) 0.01 K/uL (0.00-0.02); Immature Granulocytes % (auto) 0.2 %; Lymphocytes % (auto) 8.4 %; Mean Corpuscular Hgb Conc 33.7 g/dL (32-36); Mean Corpuscular Volume 87.6 fL (80-100); Mean Platelet Volume 10.8 fL (7.4-10.4); Monocytes # (auto) 0.31 K/uL (0.11-0.59); Monocytes % (auto) 5.2 %; Neutrophils # (auto) 5.07 K/uL (1.4-6.5); Neutrophils % (auto) 85.5 %; Platelet Count 179 K/uL (130-400); RDW Coefficient of Variation 14.2 % (11.5-14.5); RDW Standard Deviation 45.7 fL (36.4-46.3); White Blood Count 5.93 K/uL (4.8-10.8)
[2018-12-03 22:05] LABS: Influenza B virus by PCR Neg for Influ B (Neg)
[2018-12-03 22:06] LABS: Partial Thromboplastin Time 27.9 Seconds (21.0-31.0); Prothrombin Time 10.3 Seconds (9.0-12.0)
[2018-12-03 22:13] LABS: Alanine Aminotransferase 33 U/L (12-78); Albumin Level 3.5 gm/dl (3.4-5.0); Aspartate Aminotransferase 13 U/L (15-37); BUN Creatinine Ratio 11.7 (10-20); Blood Urea Nitrogen 12 mg/dl (7-18); Calcium 8.1 mg/dl (8.5-10.1); Carbon Dioxide 24 mmol/L (21-32); Chloride 109 mmol/L (98-107); Creatinine Clr Calc Pharmacy 89.2 ml/min; Est GFR (African American) 80.4; Est GFR (Non-African American) 69.4; Glucose 104 mg/dl (70-99); Potassium 3.7 mmol/L (3.5-5.1); Sodium 138 mmol/L (136-145)
[2018-12-03 22:17] LABS: Albumin Globulin Ratio 0.9 (0.9-2); Alkaline Phosphatase 91 U/L (45-117); Bilirubin,Total 0.3 mg/dl (0.2-1); Globulin 3.8 gm/dl (2.5-4.0); Total Protein 7.3 gm/dl (6.4-8.2); Troponin I < 0.015 ng/ml (0-0.045)
[2018-12-03] MEDS ORDERED: OSELTAMIVIR PHOSPHATE 75 MG CAP PO STA (22:45)
[2018-12-03 22:50] LABS: Appearance Urine Cloudy (Clear); Bacteria Urine Automated Negative (Negative); Bilirubin Urine Negative (Negative); Blood Urine Negative (Negative); Color Urine Yellow; Epithelial Cell Urine Auto >30 /lpf (0-5); Glucose Urine UA Negative (Negative); Ketones Urine Negative (Negative); Leukocyte Esterase Urine 2+ (Negative); Nitrite Urine Negative (Negative); Protein Urine Negative (Negative); RBC Urine Automated 0-4 /hpf (0-4); Specific Gravity Urine 1.022 (1.000-1.030); Urobilinogen Urine Negative (Negative); WBC Urine Automated >30 /hpf (0-5)
[2018-12-03] MEDS ORDERED: predniSONE 50 MG TAB PO STA (23:30)
[2018-12-03] MEDS ORDERED: BENZONATATE 100 MG CAPSULE PO ONE (23:33)
--- NOTE | 2018-12-04 00:34 | Emergency Department Note ---
Entered by Kavitha Ferraro acting as a scribe for Pawan Lagunas DO History of Present Illness General Chief complaint: Respiratory Problems Stated complaint: SOMETHING STUCK IN L EYE,DIZZY,SOB Source: patient History of Present Illness Onset (ago): day(s) 1 Location: chest (respiratory issues) Pain Consistency: + other (worsening) Maximum Pain Intensity: 4 Relieved By: + none Associated symptoms: + denies other symptoms (burning urination), + cough (with mucous), + fever/chills (fever of 103.2), + shortness of breath and + other (sore throat, lost contact in left eye) The patient is a 38 year old F who presents to the Emergency Room with complaints of worsening respiratory problems starting 1 day ago. She states that last night she started experiencing a sore throat. She notes that her symptoms worsened and she started to experience coughing with mucous and shortness of breath. She adds that she is currently tired and has a fever of 103.2. She sta yanteh that she thinks that she lost a contact in her left eye last night. 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 She denies experiencing any burning urination. She denies a history of COPD. She adds that she does not have any medical problems. No other exacerbating or remitting factors with the exception that she notes that she feels extremely weak. Home Medications Home Medications Medication Instructions Recorded Confirmed Type cyanocobalamin (vitamin B-12) 1,000 mcg PO DAILY 05/24/18 12/03/18 History meclizine 25 mg PO TID PRN 05/24/18 12/03/18 History ranitidine HCl 150 mg PO BID 05/24/18 12/03/18 History Aimovig Autoinjector 70 mg SUBCUT MONTHLY 08/15/18 12/03/18 History escitalopram oxalate [Lexapro] 10 mg PO QAM 08/15/18 12/03/18 History hydroxyzine pamoate [Vistaril] 25 mg PO QID PRN 08/15/18 12/03/18 History gabapentin 400 mg PO HS 12/03/18 12/03/18 History pantoprazole 40 mg PO QAM 12/03/18 12/03/18 History quetiapine 25 mg PO DAILY 12/03/18 12/03/18 History sumatriptan succinate 100 mg PO DIRECTED PRN 12/03/18 12/03/18 History Allergies Allergy/AdvReac Type Severity Reaction Status Date / Time Fish Containing Products Allergy Intermediate Rash Verified 11/14/18 14:13 albuterol AdvReac Mild PASS OUT Verified 11/14/18 14:13 Past Med/Surg History Social History Preferred Language: Belarusian Communication Ability: Effective Beliefs That Will Affect Care: None Current Living Situation: Spouse Feels Safe at Home: Yes Smoking Status: Never smoker Hx Alcohol Use: No Hx Substance Use: No Review of Systems See HPI for pertinent positives & negatives. and A total of 10 systems reviewed and were otherwise negative Physical Exam Vital Signs Vital Signs - 24 hr 12/03/18 20:36 12/03/18 21:36 12/03/18 21:37 Temperature 37.2 C Temperature Source Oral Sepsis Recent Fever Within 48 Hours No Sepsis New/Unexplained Change in Mental Status No Sepsis Action Taken by Nursing No Action Required Pulse Rate 144 H Pulse Rate [Apical] 112 H Respiratory Rate 22 20 Respiratory Effort / Characteristics Non-Labored Spontaneous Non-Labored Respiratory Depth Normal Respiratory Pattern Regular Blood Pressure 151/90 H Blood Pressure [Right Arm] Blood Pressure Mean 110 Blood Pressure Mean [Right Arm] Pulse Oximetry 98 98 Oxygen Delivery Method Room Air 12/03/18 21:43 12/03/18 21:47 12/03/18 21:49 Temperature Temperature Source Sepsis Recent Fever Within 48 Hours Sepsis New/Unexplained Change in Mental Status Sepsis Action Taken by Nursing Pulse Rate 123 H 128 H Pulse Rate [Apical] 134 H Respiratory Rate 27 H 22 29 H Respiratory Effort / Characteristics Respiratory Depth Respiratory Pattern Blood Pressure 115/86 Blood Pressure [Right Arm] 115/86 Blood Pressure Mean 95 Blood Pressure Mean [Right Arm] 95 Pulse Oximetry 95 Oxygen Delivery Method Room Air 12/03/18 22:00 12/03/18 22:01 12/03/18 22:54 Temperature Temperature Source Sepsis Recent Fever Within 48 Hours Sepsis New/Unexplained Change in Mental Status Sepsis Action Taken by Nursing Pulse Rate 131 H 132 H Pulse Rate [Apical] 132 H Respiratory Rate 33 H 36 H 24 Respiratory Effort / Characteristics Short of Breath Respiratory Depth Respiratory Pattern Blood Pressure 124/85 Blood Pressure [Right Arm] Blood Pressure Mean 98 Blood Pressure Mean [Right Arm] Pulse Oximetry 100 Oxygen Delivery Method Room Air 12/03/18 23:57 Temperature 37.4 C Temperature Source Oral Sepsis Recent Fever Within 48 Hours Sepsis New/Unexplained Change in Mental Status Sepsis Action Taken by Nursing Pulse Rate Pulse Rate [Apical] 135 H Respiratory Rate 24 Respiratory Effort / Characteristics Respiratory Depth Respiratory Pattern Blood Pressure Blood Pressure [Right Arm] 132/75 Blood Pressure Mean Blood Pressure Mean [Right Arm] 94 Pulse Oximetry 98 Oxygen Delivery Method GENERAL: Sitting up in bed, disheveled appearing, mildly ill-appearing EYE EXAM: normal conjunctiva. PERRL and EOM's grossly intact. OROPHARYNX: no exudate, no erythema, lips, buccal mucosa, and tongue normal and mucous membranes are moist NECK: supple, no nuchal rigidity, no adenopathy, non-tender LUNGS: Faint wheezes bilaterally. Normal chest wall mechanics HEART: no murmurs, S1 normal and S2 normal, tachycardia ABDOMEN: abdomen soft, non-tender, normo-active bowel, sounds, no masses, no rebound or guarding. BACK: Back is symmetrical on inspection and there is no deformity, no midline tenderness, no CVA tenderness. SKIN: no rashes and no bruising UPPER EXTREMITIES: upper extremities are grossly normal. LOWER EXTREMITIES: No pitting edema. calves equal bilaterally. NEURO EXAM: Normal sensorium, cranial nerves II-XII grossly intact, normal speech, no gross weakness of arms, no gross weakness of legs. Course ED COURSE: Vital signs were reviewed and showed normal blood pressure. The patients medical record was reviewed The above diagnostic studies were performed and reviewed. ED treatments and interventions as stated above. 2040: The patient was evaluated in room C8. A complete history and physical examination was performed. 2244: Upon reevaluation, the patient is not doing better. I discussed my findings with the patient and she understands and agrees with the treatment plan. 0000: I reviewed the patient's case with Dr. Hays, [facility] Hospitalist. He will evaluate the patient for further management. Based on the patients age, coexisting illnesses, exam and lab findings the decision to treat as an [inpatient][outpatient] was made. The patient remained stable while under my care. [The patient appeared well at the time of discharge.] [The patient will be evaluated for further management.] Consultations Consultation #1: I reviewed the patient's case with Dr. Hays, [facility] Hospitalist. He will evaluate the patient for further management. Time: 00:00 Administered Medications Discontinued Medications Benzonatate (Tessalon Perle) 100 mg PO NOW ONE Stop: 12/03/18 23:34 Last Admin: 12/03/18 23:56 Dose: 100 mg Documented by: [id number] Sodium Chloride (Nss 1000ml) 2,000 mls @ 999 mls/hr IV .Q2H1M RADHA Stop: 12/03/18 23:00 Last Infusion: 12/03/18 23:50 Dose: 0 mls/hr Documented by: [id number] Admin: 12/03/18 21:49 Dose: 999 mls/hr Documented by: [id number] Levalbuterol HCl (Xopenex 0.63 Mg/3 Ml Neb) 0.63 mg NEB NOW STA Stop: 12/03/18 20:49 Last Admin: 12/03/18 21:36 Dose: 0.63 mg Documented by: [id number] Levalbuterol HCl (Xopenex 0.63 Mg/3 Ml Neb) 0.63 mg NEB NOW STA Stop: 12/03/18 22:46 Last Admin: 12/03/18 22:54 Dose: 0.63 mg Documented by: [id number] Oseltamivir Phosphate (Tamiflu) 75 mg PO NOW STA Stop: 12/03/18 22:46 Last Admin: 12/03/18 22:48 Dose: 75 mg Documented by: [id number] Prednisone (Prednisone) 50 mg PO NOW STA Stop: 12/03/18 23:31 Last Admin: 12/03/18 23:56 Dose: 50 mg Documented by: [id number] Medical Decision Making Differential Diagnosis Differential diagnoses includes but is not limited to pneumonia, bronchitis, COPD/Asthma exacerbation, pneumothorax, pulmonary embolism, congestive heart failure, acute coronary syndrome Medical Records Attestation: I reviewed the patient's medical records. Home Medications Current Medication List: was personally reviewed by me Laboratory Data Attestation: I reviewed the patient's lab results. Result diagrams: 12/03/18 21:35 12/03/18 21:35 Lab Results 12/03/18 12/03/18 12/03/18 Range/Units 21:28 21:30 21:35 WBC 5.93 (4.8-10.8) K/uL RBC 4.20 (4.2-5.4) M/uL Hgb 12.4 (12.0-16.0) g/dL Hct 36.8 L (37-47) % MCV 87.6 (80-100) fL MCH 29.5 (25-34) pg MCHC 33.7 (32-36) g/dL RDW Std Deviation 45.7 (36.4-46.3) fL RDW Coeff of Zuleyma 14.2 (11.5-14.5) % Plt Count 179 (130-400) K/uL MPV 10.8 H (7.4-10.4) fL Immature Gran % (Auto) 0.2 % Neut % (Auto) 85.5 % Lymph % (Auto) 8.4 % Cottle % (Auto) 5.2 % Eos % (Auto) 0.5 % Baso % (Auto) 0.2 % Immature Gran # (Auto) 0.01 (0.00-0.02) K/uL Neut # (Auto) 5.07 (1.4-6.5) K/uL Lymph # (Auto) 0.50 L (1.2-3.4) K/uL Cottle # (Auto) 0.31 (0.11-0.59) K/uL Eos # (Auto) 0.03 (0-0.5) K/uL Baso # (Auto) 0.01 (0-0.2) K/uL PT (9.0-12.0) Seconds INR (0.9-1.1) APTT (21.0-31.0) Seconds PTT Ratio Sodium (136-145) mmol/L Potassium (3.5-5.1) mmol/L Chloride (98-107) mmol/L Carbon Dioxide (21-32) mmol/L Anion Gap (3-11) BUN (7-18) mg/dl Creatinine (0.6-1.2) mg/dl Est Cr Clr Drug Dosing ml/min Est GFR ( Amer) Est GFR (Non-Af Amer) BUN/Creatinine Ratio (10-20) Glucose (70-99) mg/dl Calcium (8.5-10.1) mg/dl Total Bilirubin (0.2-1) mg/dl AST (15-37) U/L ALT (12-78) U/L Alkaline Phosphatase (45-117) U/L Troponin I (0-0.045) ng/ml Total Protein (6.4-8.2) gm/dl Albumin (3.4-5.0) gm/dl Globulin (2.5-4.0) gm/dl Albumin/Globulin Ratio (0.9-2) Urine Color Yellow Urine Appearance Cloudy H (Clear) Urine pH 7.0 (4.5-7.5) Ur Specific [place] 1.022 (1.000-1.030) Urine Protein Negative (Negative) Urine Glucose (UA) Negative (Negative) Urine Ketones Negative (Negative) Urine Blood Negative (Negative) Urine Nitrite Negative (Negative) Urine Bilirubin Negative (Negative) Urine Urobilinogen Negative (Negative) Ur Leukocyte Esterase 2+ H (Negative) Urine WBC (Auto) >30 H (0-5) /hpf Urine RBC (Auto) 0-4 (0-4) /hpf U Hyaline Cast (Auto) 1-5 (0-5) /lpf U Epithel Cells (Auto) >30 H (0-5) /lpf Urine Bacteria (Auto) Negative (Negative) Influenza Type A (PCR) Pos for Influ A A* (Neg) Influenza Type B (PCR) Neg for Influ B (Neg) 12/03/18 12/03/18 Range/Units 21:35 21:35 WBC (4.8-10.8) K/uL RBC (4.2-5.4) M/uL Hgb (12.0-16.0) g/dL Hct (37-47) % MCV (80-100) fL MCH (25-34) pg MCHC (32-36) g/dL RDW Std Deviation (36.4-46.3) fL RDW Coeff of Zuleyma (11.5-14.5) % Plt Count (130-400) K/uL MPV (7.4-10.4) fL Immature Gran % (Auto) % Neut % (Auto) % Lymph % (Auto) % Cottle % (Auto) % Eos % (Auto) % Baso % (Auto) % Immature Gran # (Auto) (0.00-0.02) K/uL Neut # (Auto) (1.4-6.5) K/uL Lymph # (Auto) (1.2-3.4) K/uL Cottle # (Auto) (0.11-0.59) K/uL Eos # (Auto) (0-0.5) K/uL Baso # (Auto) (0-0.2) K/uL PT 10.3 (9.0-12.0) Seconds INR 1.0 (0.9-1.1) APTT 27.9 (21.0-31.0) Seconds PTT Ratio 1.0 Sodium 138 (136-145) mmol/L Potassium 3.7 (3.5-5.1) mmol/L Chloride 109 H (98-107) mmol/L Carbon Dioxide 24 (21-32) mmol/L Anion Gap 5.0 (3-11) BUN 12 (7-18) mg/dl Creatinine 1.03 (0.6-1.2) mg/dl Est Cr Clr Drug Dosing 89.2 ml/min Est GFR ( Amer) 80.4 Est GFR (Non-Af Amer) 69.4 BUN/Creatinine Ratio 11.7 (10-20) Glucose 104 H (70-99) mg/dl Calcium 8.1 L (8.5-10.1) mg/dl Total Bilirubin 0.3 (0.2-1) mg/dl AST 13 L (15-37) U/L ALT 33 (12-78) U/L Alkaline Phosphatase 91 (45-117) U/L Troponin I < 0.015 (0-0.045) ng/ml Total Protein 7.3 (6.4-8.2) gm/dl Albumin 3.5 (3.4-5.0) gm/dl Globulin 3.8 (2.5-4.0) gm/dl Albumin/Globulin Ratio 0.9 (0.9-2) Urine Color Urine Appearance (Clear) Urine pH (4.5-7.5) Ur Specific [place] (1.000-1.030) Urine Protein (Negative) Urine Glucose (UA) (Negative) Urine Ketones (Negative) Urine Blood (Negative) Urine Nitrite (Negative) Urine Bilirubin (Negative) Urine Urobilinogen (Negative) Ur Leukocyte Esterase (Negative) Urine WBC (Auto) (0-5) /hpf Urine RBC (Auto) (0-4) /hpf U Hyaline Cast (Auto) (0-5) /lpf U Epithel Cells (Auto) (0-5) /lpf Urine Bacteria (Auto) (Negative) Influenza Type A (PCR) (Neg) Influenza Type B (PCR) (Neg) Imaging Data Radiologist's Impression: Radiology results as stated below per my review and the radiologist's interpretation: XR chest 1V portable CLINICAL HISTORY: Dyspnea COMPARISON STUDY: Chest radiograph September 23, 2017. FINDINGS: Lung volumes are normal. Lungs are clear. There is no pneumothorax or pleural effusion. There is no consolidation or evidence for pulmonary edema. Mild cardiomegaly is unchanged. Appearance of the chest is unchanged. IMPRESSION: 1. No acute cardiopulmonary findings. 2. Mild cardiomegaly. Electronically signed by: Michelet Cifuentes M.D. 12/03/2018 9:18 PM ECG Data Indication: SOB/dyspnea Rate (beats per minute): 129 Rhythm: sinus tachycardia Findings: + other (normal axis); no PVC Blood Pressure Blood Pressure Findings: Normal blood pressure Blood Pressure Disposition: did not require urgent referral MDM Narrative Patient is a 38-year-old female who presents the ER for shortness of breath associate with a productive cough sore throat and runny nose. Symptoms started within the past 24 hours. No other exacerbating or remitting factors. Upon presentation she was found to have a heart rate in the 130s. Pulse ox was normal. She was dyspneic with conversation. Labs show no significant leukocytosis or anemia. INR was unremarkable. BMP along with LFTs bilirubin and troponin was normal. Patient was given multiple doses of Xopenex no significant improvement. She was given Tessalon Perles as well. She is updated bedside. On several occasions she was still dyspneic with conversation and her heart rate trended up to the 150s. EKG shows no acute ischemia with some mild rate related changes. Patient was discussed with the hospitalist due to her dyspnea and tachycardia with her upper respiratory symptoms likely secondary to influenza A. She was also given Tamiflu. Impression & Plan Influenza A, Dyspnea, Tachycardia Discharge Plan Visit Data Chief Complaint: Respiratory Problems Stated Complaint: SOMETHING STUCK IN L EYE,DIZZY,SOB ED Provider: Pawan Lagunas Discharge Problem: Influenza A, Dyspnea, Tachycardia Patient Disposition: Admitted As Inpatient Forms Stand Alone Forms: [facility] Prescriptions Prescriptions: No Action cyanocobalamin (vitamin B-12) 1,000 mcg Capsule 1,000 mcg PO DAILY RF: 0 meclizine 25 mg Tablet 25 mg PO TID PRN (Reason: Dizziness) RF: 0 ranitidine HCl 150 mg Tablet 150 mg PO BID RF: 0 hydroxyzine pamoate [Vistaril] 25 mg Capsule 25 mg PO QID PRN (Reason: Anxiety) RF: 0 escitalopram oxalate [Lexapro] 10 mg Tablet 10 mg PO QAM RF: 0 Aimovig Autoinjector 70 mg/mL Auto-Injector 70 mg subcut MONTHLY RF: 0 quetiapine 25 mg tablet 25 mg PO DAILY RF: 0 sumatriptan succinate 100 mg tablet 100 mg PO DIRECTED PRN (Reason: Migraine Headache) RF: 0 gabapentin 400 mg capsule 400 mg PO HS RF: 0 pantoprazole 40 mg tablet,delayed release (DR/EC) 40 mg PO QAM RF: 0 Referrals Referrals: Guillermo Fink III, MD [Primary Care Provider] - Discharge Problem: Dyspnea Qualifiers: Dyspnea type: unspecified Qualified Code(s): R06.00 - Dyspnea, unspecified The scribe's documentation has been prepared under my direction and personally reviewed by me in its entirety. I confirm that the note above accurately reflects all work, treatment, procedures, and medical decision making performed by me.
[2018-12-04] MEDS ORDERED: ACETAMINOPHEN 325 MG TAB ONE (01:55)
[2018-12-04] MEDS ORDERED: POLYETHYLENE (MIRALAX) 17 GM PACK PO PRN (02:11)
[2018-12-04] MEDS ORDERED: ONDANSETRON INJ 2 MG/ML 2 ML VIAL IV PRN (02:11)
[2018-12-04] MEDS ORDERED: SUMAtriptan succinate 100 MG TAB PO PRN (02:11)
[2018-12-04] MEDS ORDERED: MECLIZINE HCL 25 MG TAB PO PRN (02:11)
[2018-12-04] MEDS ORDERED: ACETAMINOPHEN 1000 MG/100 ML IV IV PRN (02:11)
[2018-12-04] MEDS: NSS + 20MEQ KCL 20 MEQ/1,000 ML BAG IV SCH ×3 (02:47→22:59)
--- NOTE | 2018-12-04 07:36 | History & Physical Report ---
Date of Service December 04, 2018 Assessment & Plan (1) Influenza A: 25 mg p.o. dailyShe has been started on Tamiflu 75 mg p.o. twice daily. NSS + KCl 20 mEq at 100 mils per hour. Zofran 4 mg IV every 6 hours as needed. Continue all other medications including B12 1000 mcg daily, Lexapro 10 mg daily, gabapentin 400 mg every evening, meclizine 25 mg p.o. 3 times daily as needed, pantoprazole 40 mg p.o. every morning, Seroquel 25 mg p.o. daily, ranitidine 150 mg p.o. twice daily and sumatriptan succinate 100 mg p.o. daily as needed headache. Present on Admission?: Yes History of Present Illness Chief Complaint: The patient presents to the emergency department with complaint of worsening shortness of breath, cough and sore throat over the past 24 hours. Primary Care Provider: Guillermo Fink MD The patient is a 38-year-old female who presents to the emergency department with worsening sore throat, chest congestion, shortness of breath at rest with dyspnea on exertion over the past 24 hours. She had a maximum temperature 103.2. 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 Workup in the emergency department and could included testing positive for influenza A. Allergies Allergy/AdvReac Type Severity Reaction Status Date / Time Fish Containing Products Allergy Intermediate Rash Verified 11/14/18 14:13 albuterol AdvReac Mild PASS OUT Verified 11/14/18 14:13 Home Medications Home Medications Medication Instructions Recorded Confirmed Type cyanocobalamin (vitamin B-12) 1,000 mcg PO DAILY 05/24/18 12/03/18 History meclizine 25 mg PO TID PRN 05/24/18 12/03/18 History ranitidine HCl 150 mg PO BID 05/24/18 12/03/18 History Aimovig Autoinjector 70 mg SUBCUT MONTHLY 08/15/18 12/03/18 History escitalopram oxalate [Lexapro] 10 mg PO QAM 08/15/18 12/03/18 History hydroxyzine pamoate [Vistaril] 25 mg PO QID PRN 08/15/18 12/03/18 History gabapentin 400 mg PO HS 12/03/18 12/03/18 History pantoprazole 40 mg PO QAM 12/03/18 12/03/18 History quetiapine 25 mg PO DAILY 12/03/18 12/03/18 History sumatriptan succinate 100 mg PO DIRECTED PRN 12/03/18 12/03/18 History Past Med/Surg History Social History Preferred Language: Georgian Communication Ability: Effective 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 Required: No Beliefs That Will Affect Care: None Current Living Situation: Spouse and Family Feels Safe at Home: Yes Safety Concerns: Feels Safe At This Time Smoking Status: Never smoker Hx Alcohol Use: No Hx Substance Use: No Review of Systems The patient denies palpitations, lower extremity swelling, sweats, weight change, nausea, vomiting, diarrhea , constipation, abdominal pain, pelvic pain, blood in urine or stool, dysuria, urinary frequency or urgency, memory loss, loss of consciousness, rash, abnormal bruising or bleeding, imbalance, focal or generalized weakness, numbness or tingling in arms or legs, back or neck pain, or night sweats. The review of systems is otherwise negative other than for that already noted above, and at least 10 systems have been reviewed. Physical Exam Vital Signs (Past 24 Hours): Last Vital Signs Temp 36.8 C 12/04/18 07:19 Pulse 103 H 12/04/18 07:19 Resp 18 12/04/18 07:19 BP 130/73 12/04/18 07:19 Pulse Ox 95 12/04/18 07:19 Physical Exam: The patient is awake, alert and oriented 3, well developed and well nourished, normocephalic and atraumatic, lying in bed and in no acute distress except during paroxysmal coughing. HEENT--PERRL, EOMI, mucous membranes and oropharynx dry. Neck--supple. No JVD. No bruits. Thyroid normal, trachea midline, no adenopathy. Heart--normal S1 and S2. No murmurs, rubs or gallops. Lungs--clear bilaterally, no respiratory distress, no accessory muscle use. Abdomen--normal bowel sounds and soft. Nontender. Nondistended, no hernias or masses, no organomegaly. Extremities--no cyanosis or clubbing. No edema. There are good distal pulses b/l. Dermatologic--normal skin turgor, normal color, no abnormal lymph nodes, no rash. Neurologic--cranial nerves II through XII grossly intact. Rheumatologic--normal range of motion. Psychiatric--normal affect. Results & Data Laboratory Results Laboratory Results WBC 5.93 K/uL (4.8-10.8) 12/03/18 21:35 RBC 4.20 M/uL (4.2-5.4) 12/03/18 21:35 Hgb 12.4 g/dL (12.0-16.0) 12/03/18 21:35 Hct 36.8 % (37-47) L 12/03/18 21:35 MCV 87.6 fL (80-100) 12/03/18 21: MCH 29.5 pg (25-34) 12/03/18 21:35 MCHC 33.7 g/dL (32-36) 12/03/18 21:35 RDW Std Deviation 45.7 fL (36.4-46.3) 12/03/18 21:35 RDW Coeff of Zuleyma 14.2 % (11.5-14.5) 12/03/18 21:35 Plt Count 179 K/uL (130-400) 12/03/18 21:35 MPV 10.8 fL (7.4-10.4) H 12/03/18 21:35 Immature Gran % (Auto) 0.2 % 12/03/18 21:35 Neut % (Auto) 85.5 % 12/03/18 21:35 Lymph % (Auto) 8.4 % 12/03/18 21:35 [place] % (Auto) 5.2 % 12/03/18 21:35 Eos % (Auto) 0.5 % 12/03/18 21:35 Baso % (Auto) 0.2 % 12/03/18 21:35 Immature Gran # (Auto) 0.01 K/uL (0.00-0.02) 12/03/18 21:35 Neut # (Auto) 5.07 K/uL (1.4-6.5) 12/03/18 21:35 Lymph # (Auto) 0.50 K/uL (1.2-3.4) L 12/03/18 21:35 [place] # (Auto) 0.31 K/uL (0.11-0.59) 12/03/18 21:35 Eos # (Auto) 0.03 K/uL (0-0.5) 12/03/18 21:35 Baso # (Auto) 0.01 K/uL (0-0.2) 12/03/18 21:35 PT 10.3 Seconds (9.0-12.0) 12/03/18 21:35 INR 1.0 (0.9-1.1) 12/03/18 21:35 APTT 27.9 Seconds (21.0-31.0) 12/03/18 21:35 PTT Ratio 1.0 12/03/18 21:35 Sodium 138 mmol/L (136-145) 12/03/18 21:35 Potassium 3.7 mmol/L (3.5-5.1) 12/03/18 21:35 Chloride 109 mmol/L (98-107) H 12/03/18 21:35 Carbon Dioxide 24 mmol/L (21-32) 12/03/18 21:35 Anion Gap 5.0 (3-11) 12/03/18 21:35 BUN 12 mg/dl (7-18) 12/03/18 21:35 Creatinine 1.03 mg/dl (0.6-1.2) 12/03/18 21:35 Est Cr Clr Drug Dosing 89.2 ml/min 12/03/18 21:35 Est GFR ( Amer) 80.4 12/03/18 21:35 Est GFR (Non-Af Amer) 69.4 12/03/18 21:35 BUN/Creatinine Ratio 11.7 (10-20) 12/03/18 21:35 Glucose 104 mg/dl (70-99) H 12/03/18 21:35 Calcium 8.1 mg/dl (8.5-10.1) L 12/03/18 21:35 Total Bilirubin 0.3 mg/dl (0.2-1) 12/03/18 21:35 AST 13 U/L (15-37) L 12/03/18 21:35 ALT 33 U/L (12-78) 12/03/18 21:35 Alkaline Phosphatase 91 U/L (45-117) 12/03/18 21:35 Troponin I < 0.015 ng/ml (0-0.045) 12/03/18 21:35 Total Protein 7.3 gm/dl (6.4-8.2) 12/03/18 21:35 Albumin 3.5 gm/dl (3.4-5.0) 12/03/18 21:35 Globulin 3.8 gm/dl (2.5-4.0) 12/03/18 21:35 Albumin/Globulin Ratio 0.9 (0.9-2) 12/03/18 21:35 Urine Color Yellow 12/03/18 21:30 Urine Appearance Cloudy (Clear) H 12/03/18 21:30 Urine pH 7.0 (4.5-7.5) 12/03/18 21:30 Ur Specific [place] 1.022 (1.000-1.030) 12/03/18 21:30 Urine Protein Negative (Negative) 12/03/18 21:30 Urine Glucose (UA) Negative (Negative) 12/03/18 21:30 Urine Ketones Negative (Negative) 12/03/18 21:30 Urine Blood Negative (Negative) 12/03/18 21:30 Urine Nitrite Negative (Negative) 12/03/18 21:30 Urine Bilirubin Negative (Negative) 12/03/18 21:30 Urine Urobilinogen Negative (Negative) 12/03/18 21:30 Ur Leukocyte Esterase 2+ (Negative) H 12/03/18 21:30 Urine WBC (Auto) >30 /hpf (0-5) H 12/03/18 21:30 Urine RBC (Auto) 0-4 /hpf (0-4) 12/03/18 21:30 U Hyaline Cast (Auto) 1-5 /lpf (0-5) 12/03/18 21:30 U Epithel Cells (Auto) >30 /lpf (0-5) H 12/03/18 21:30 Urine Bacteria (Auto) Negative (Negative) 12/03/18 21:30 Influenza Type A (PCR) Pos for Influ A (Neg) A* 12/03/18 21:28 Influenza Type B (PCR) Neg for Influ B (Neg) 12/03/18 21:28 Diagnostic Findings [facility], [place] [phone] XRay Report Patient: FAMILIA YUSUF LAdmit Date: 12/03/18 MR#: [id number]: [address] Acct ID:[id number]: Date: 1980City Zip: [place] [address] Age: 38Location: ED Sex: F Room/Bed: Att Phy: Diagnosis: SOMETHING STUCK IN L EYE,DIZZY,SOB Taisha Phy: PCP,NO Service Date: 12/03/18 Fam Phy: Interpreting Phy: Michelet Cifuentes MD Admit Phy: Ordering Phy: Pawan Lagunas DO cc: ~ XR chest 1V portable CLINICAL HISTORY: Dyspnea COMPARISON STUDY: Chest radiograph September 23, 2017. FINDINGS: Lung volumes are normal. Lungs are clear. There is no pneumothorax or pleural effusion. There is no consolidation or evidence for pulmonary edema. Mild cardiomegaly is unchanged. Appearance of the chest is unchanged. IMPRESSION: 1. No acute cardiopulmonary findings. 2. Mild cardiomegaly. Electronically signed by: Michelet Cifuentes M.D. 12/03/2018 9:18 PM Dictated: 12/03/182116 Transcribed: 12/03/182116 Code Status & VTE Plan Code Status Full code VTE Prophylaxis Plan VTE Prophylaxis will be ordered: Yes
[2018-12-04] MEDS: ALBUT/IPRATROP 3MG/0.5MG NEB 3 ML VIAL NEB SCH ×4 (07:41→20:37)
[2018-12-04] MEDS: BUDESONIDE 0.5 MG/2 ML VIAL (PULMICORT) NEB SCH ×2 (07:41→20:37)
[2018-12-04] MEDS: CYANOCOBALAMIN 500 MCG TABLET (VITAMIN B-12) PO SCH (08:29)
[2018-12-04] MEDS: OSELTAMIVIR PHOSPHATE 75 MG CAP PO SCH ×2 (08:29→19:41)
[2018-12-04] MEDS: ESCITALOPRAM OXALATE 10 MG TAB PO SCH (08:29)
[2018-12-04] MEDS: PANTOprazole 40 MG TAB PO SCH (08:30)
[2018-12-04] MEDS: QUETIAPINE FUMARATE 25 MG TABLET PO SCH (08:30)
[2018-12-04] MEDS: ENOXAPARIN INJ 40 MG/0.4 ML SYR SQ SCH (08:32)
--- NOTE | 2018-12-04 08:34 | Hospitalist Progress Note ---
Date of Service December 04, 2018 Assessment & Plan (1) Influenza A: Tamiflu 75 mg p.o. twice daily. NSS + KCl 20 mEq at 100 mils per hour. Zofran 4 mg IV every 6 hours as needed. Continue other medications including B12 1000 mcg daily, gabapentin 400 mg every evening, meclizine 25 mg p.o. 3 times daily as needed, and sumatriptan succinate 100 mg p.o. daily as needed headache. (2) Depression: Lexapro 10 mg daily, seroquel for sleep (3) GERD (gastroesophageal reflux disease): pantoprazole 40 mg p.o. every morning, , ranitidine 150 mg p.o. twice daily Subjective Patient feels weak and tired she has a cough she is having hoarse voice. She is able to take some liquid oral intake but no solids Review of Systems ROS: She feels weak tired and fatigued No double vision blurry vision Patient is a sore throat which makes swallowing challenging No palpitations, chest pain or pressure patient has some shortness of breath with exertion No abdominal pain nausea vomiting diarrhea changes in appetite or weight No burning urine urine frequency or changes in color No focal joint pain or muscle pain No skin rashes or oral lesions No unusual bruising or bleeding No focused back pain or numbness or loss of strength No changes in memory or confusion Physical Exam Vital Signs (Past 24 Hours): Last Vital Signs Temp 36.8 C 12/04/18 07:19 Pulse 110 H 12/04/18 07:41 Resp 18 12/04/18 07:41 BP 130/73 12/04/18 07:19 Pulse Ox 96 12/04/18 07:41 The patient appeared ill Vital signs as documented. Head exam is unremarkable. normocephalic, atraumatic oropharynx without exudates there is erythema to her posterior pharynx Neck is without jugular venous distension, thyromegaly, or lymphademopathy there is no stridor trachea is midline Lungs are clear to auscultation there is no focal air loss Cardiac exam reveals Rhythm is regular. First and second heart sounds normal. Abdominal exam reveals normal bowel sounds, no masses, no organomegaly Extremities are nonedematous and both pedal pulses are present Neurologic exam is A&Ox3, no focal deficits, strength is equal bilateral Psychologically seems neither anxious or depressed Skin is warm Dry without bruises or lesions
[2018-12-04 09:23] LABS: Basophils # (auto) 0.01 K/uL (0-0.2); Basophils % (auto) 0.1 %; Hematocrit (blood only) 34.6 % (37-47); Hemoglobin 11.5 g/dL (12.0-16.0); Immature Granulocytes # (auto) 0.01 K/uL (0.00-0.02); Immature Granulocytes % (auto) 0.1 %; Lymphocytes # (auto) 0.33 K/uL (1.2-3.4); Lymphocytes % (auto) 4.9 %; Mean Corpuscular Hgb Conc 33.2 g/dL (32-36); Mean Corpuscular Volume 89.2 fL (80-100); Mean Platelet Volume 10.7 fL (7.4-10.4); Monocytes # (auto) 0.21 K/uL (0.11-0.59); Monocytes % (auto) 3.1 %; Neutrophils # (auto) 6.11 K/uL (1.4-6.5); Neutrophils % (auto) 91.8 %; Platelet Count 159 K/uL (130-400); RDW Coefficient of Variation 14.4 % (11.5-14.5); RDW Standard Deviation 46.5 fL (36.4-46.3); Red Blood Count 3.88 M/uL (4.2-5.4); White Blood Count 6.67 K/uL (4.8-10.8)
[2018-12-04 09:35] LABS: INR 1.1 (0.9-1.1); Partial Thromboplastin Ratio 1.1; Partial Thromboplastin Time 29.9 Seconds (21.0-31.0); Prothrombin Time 10.9 Seconds (9.0-12.0)
[2018-12-04 09:56] LABS: BUN Creatinine Ratio 8.8 (10-20); Calcium 7.7 mg/dl (8.5-10.1); Creatinine Clr Calc Pharmacy 86.2 ml/min; Est GFR (African American) 76.8; Est GFR (Non-African American) 66.3; Potassium 4.1 mmol/L (3.5-5.1)
[2018-12-04 09:59] LABS: Albumin Globulin Ratio 0.9 (0.9-2); Bilirubin,Total 0.2 mg/dl (0.2-1); Globulin 3.3 gm/dl (2.5-4.0); Total Protein 6.3 gm/dl (6.4-8.2)
[2018-12-04] MEDS: ACETAMINOPHEN 325 MG TAB PO PRN ×2 (14:52→19:37)
[2018-12-04] MEDS: GABAPENTIN 400 MG CAP PO SCH (19:40)
[2018-12-05 07:29] LABS: Basophils # (auto) 0.01 K/uL (0-0.2); Basophils % (auto) 0.2 %; Eosinophils # (auto) 0.01 K/uL (0-0.5); Eosinophils % (auto) 0.2 %; Hematocrit (blood only) 35.3 % (37-47); Hemoglobin 11.6 g/dL (12.0-16.0); Immature Granulocytes # (auto) 0.01 K/uL (0.00-0.02); Immature Granulocytes % (auto) 0.2 %; Lymphocytes # (auto) 0.58 K/uL (1.2-3.4); Lymphocytes % (auto) 13.8 %; Mean Corpuscular Hgb Conc 32.9 g/dL (32-36); Mean Corpuscular Volume 88.9 fL (80-100); Mean Platelet Volume 10.4 fL (7.4-10.4); Monocytes # (auto) 0.47 K/uL (0.11-0.59); Monocytes % (auto) 11.2 %; Neutrophils # (auto) 3.12 K/uL (1.4-6.5); Neutrophils % (auto) 74.4 %; Platelet Count 146 K/uL (130-400); RDW Coefficient of Variation 14.7 % (11.5-14.5); RDW Standard Deviation 47.9 fL (36.4-46.3); Red Blood Count 3.97 M/uL (4.2-5.4)
[2018-12-05] MEDS: ALBUT/IPRATROP 3MG/0.5MG NEB 3 ML VIAL NEB SCH ×4 (07:29→19:57)
[2018-12-05] MEDS: BUDESONIDE 0.5 MG/2 ML VIAL (PULMICORT) NEB SCH ×2 (07:29→19:57)
[2018-12-05 07:37] LABS: Prothrombin Time 10.5 Seconds (9.0-12.0)
[2018-12-05 08:05] LABS: BUN Creatinine Ratio 7.3 (10-20); Calcium 7.8 mg/dl (8.5-10.1); Creatinine Clr Calc Pharmacy 106.5 ml/min; Est GFR (Non-African American) 86.3
[2018-12-05] MEDS: PANTOprazole 40 MG TAB PO SCH (08:08)
[2018-12-05] MEDS: CYANOCOBALAMIN 500 MCG TABLET (VITAMIN B-12) PO SCH (08:08)
[2018-12-05] MEDS: ESCITALOPRAM OXALATE 10 MG TAB PO SCH (08:08)
[2018-12-05] MEDS: QUETIAPINE FUMARATE 25 MG TABLET PO SCH (08:08)
[2018-12-05] MEDS: OSELTAMIVIR PHOSPHATE 75 MG CAP PO SCH ×2 (08:09→20:30)
[2018-12-05 08:10] LABS: Albumin Globulin Ratio 0.8 (0.9-2); Bilirubin,Total 0.3 mg/dl (0.2-1); Globulin 3.7 gm/dl (2.5-4.0); Total Protein 6.7 gm/dl (6.4-8.2)
[2018-12-05] MEDS: ENOXAPARIN INJ 40 MG/0.4 ML SYR SQ SCH (08:10)
[2018-12-05] MEDS: NSS + 20MEQ KCL 20 MEQ/1,000 ML BAG IV SCH ×2 (08:10→19:23)
--- NOTE | 2018-12-05 15:04 | Hospitalist Progress Note ---
Date of Service December 05, 2018 Assessment & Plan (1) Influenza A: Continuing therapy for influenza given her fever we will recheck an x-ray to look to see if there is a secondary pneumonia Tamiflu 75 mg p.o. twice daily. NSS + KCl 20 mEq at 100 mils per hour. Zofran 4 mg IV every 6 hours as needed. Continue other medications including B12 1000 mcg daily, gabapentin 400 mg every evening, meclizine 25 mg p.o. 3 times daily as needed, and sumatriptan succinate 100 mg p.o. daily as needed headache. (2) Depression: Lexapro 10 mg daily, seroquel for sleep (3) GERD (gastroesophageal reflux disease): Remains on pantoprazole 40 mg p.o. every morning, , ranitidine 150 mg p.o. twice daily Subjective Patient feels weak and tired she still is a fairly sore throat she did fever within the last 24 hours. Not been out of bed significantly Review of Systems ROS: well nourished well developed. No double vision blurry vision Patient complains of sore throat No palpitations, chest pain or pressure Coughing nonproductive some mild wheezing No abdominal pain nausea vomiting diarrhea changes in appetite or weight No burning urine urine frequency or changes in color No focal joint pain or muscle pain No skin rashes or oral lesions No unusual bruising or bleeding No focused back pain or numbness or loss of strength No changes in memory or confusion Physical Exam Vital Signs (Past 24 Hours): Last Vital Signs Temp 36.8 C 12/05/18 12:10 Pulse 108 H 12/05/18 12:10 Resp 18 12/05/18 12:10 BP 125/86 12/05/18 12:10 Pulse Ox 98 12/05/18 12:10 The patient appeared well nourished and normally developed. Vital signs as documented. Head exam is unremarkable. normocephalic, atraumatic oropharynx is erythematous without exudate Neck is without jugular venous distension, thyromegaly, or lymphademopathy Lungs are coarse bilaterally Cardiac exam reveals Rhythm is regular. First and second heart sounds normal. Abdominal exam reveals normal bowel sounds, no masses, no organomegaly Extremities are nonedematous and both pedal pulses are present Neurologic exam is A&Ox3, no focal deficits, strength is equal bilateral Psychologically seems neither anxious or depressed Skin is warm Dry without bruises or lesions
--- NOTE | 2018-12-05 16:11 | XRay Report ---
XR chest 2V routine HISTORY: Cough. eval for pneumonic infiltrate COMPARISON: Chest 12/03/2018. FINDINGS: There are low lung volumes. The heart remains mildly enlarged. No pleural effusions. No pne umothorax. The lungs are clear. No evidence for pulmonary edema. IMPRESSION: No significant change compared to the prior study. No acute process. Electronically signed by: Yossi Jasso M.D. 12/05/2018 4:10 PM
[2018-12-05] MEDS: GABAPENTIN 400 MG CAP PO SCH (20:30)
[2018-12-06] MEDS: NSS + 20MEQ KCL 20 MEQ/1,000 ML BAG IV SCH ×2 (05:44→16:34)
[2018-12-06] MEDS: ALBUT/IPRATROP 3MG/0.5MG NEB 3 ML VIAL NEB SCH ×4 (07:04→20:29)
[2018-12-06] MEDS: BUDESONIDE 0.5 MG/2 ML VIAL (PULMICORT) NEB SCH ×2 (07:04→20:28)
[2018-12-06 07:22] LABS: Hemoglobin 12.4 g/dL (12.0-16.0); Red Blood Count 4.14 M/uL (4.2-5.4); White Blood Count 3.58 K/uL (4.8-10.8)
[2018-12-06 07:23] LABS: Basophils # (auto) 0.01 K/uL (0-0.2); Basophils % (auto) 0.3 %; Eosinophils # (auto) 0.08 K/uL (0-0.5); Eosinophils % (auto) 2.2 %; Hematocrit (blood only) 37.1 % (37-47); Lymphocytes # (auto) 0.84 K/uL (1.2-3.4); Lymphocytes % (auto) 23.5 %; Mean Corpuscular Hgb Conc 33.4 g/dL (32-36); Mean Corpuscular Volume 89.6 fL (80-100); Mean Platelet Volume 10.5 fL (7.4-10.4); Monocytes % (auto) 5.6 %; Neutrophils # (auto) 2.45 K/uL (1.4-6.5); Neutrophils % (auto) 68.4 %; Platelet Count 160 K/uL (130-400); RDW Coefficient of Variation 14.8 % (11.5-14.5); RDW Standard Deviation 48.6 fL (36.4-46.3)
[2018-12-06 07:32] LABS: Prothrombin Time 10.5 Seconds (9.0-12.0)
[2018-12-06 07:56] LABS: BUN Creatinine Ratio 8.5 (10-20); Creatinine Clr Calc Pharmacy 97.9 ml/min; Est GFR (Non-African American) 78.5
[2018-12-06 08:00] LABS: Albumin Globulin Ratio 0.8 (0.9-2); Bilirubin,Total 0.3 mg/dl (0.2-1); Globulin 3.7 gm/dl (2.5-4.0); Total Protein 6.7 gm/dl (6.4-8.2)
[2018-12-06] MEDS: CYANOCOBALAMIN 500 MCG TABLET (VITAMIN B-12) PO SCH (08:32)
[2018-12-06] MEDS: ENOXAPARIN INJ 40 MG/0.4 ML SYR SQ SCH (08:32)
[2018-12-06] MEDS: OSELTAMIVIR PHOSPHATE 75 MG CAP PO SCH ×2 (08:33→21:18)
[2018-12-06] MEDS: PANTOprazole 40 MG TAB PO SCH (08:33)
[2018-12-06] MEDS: ESCITALOPRAM OXALATE 10 MG TAB PO SCH (08:33)
[2018-12-06] MEDS: QUETIAPINE FUMARATE 25 MG TABLET PO SCH (08:33)
[2018-12-06] MEDS: GABAPENTIN 400 MG CAP PO SCH (21:18)
[2018-12-07] MEDS: NSS + 20MEQ KCL 20 MEQ/1,000 ML BAG IV SCH (01:52)
[2018-12-07 06:11] LABS: Hematocrit (blood only) 36.6 % (37-47); Hemoglobin 11.9 g/dL (12.0-16.0); Mean Corpuscular Hgb Conc 32.5 g/dL (32-36); Mean Corpuscular Volume 88.6 fL (80-100); Mean Platelet Volume 10.3 fL (7.4-10.4); Platelet Count 175 K/uL (130-400); RDW Coefficient of Variation 14.5 % (11.5-14.5); RDW Standard Deviation 47.1 fL (36.4-46.3); Red Blood Count 4.13 M/uL (4.2-5.4); White Blood Count 3.93 K/uL (4.8-10.8)
[2018-12-07] MEDS: ALBUT/IPRATROP 3MG/0.5MG NEB 3 ML VIAL NEB SCH ×2 (07:09→10:52)
--- NOTE | 2018-12-07 07:47 | Hospitalist Progress Note ---
Date of Service December 06, 2018 Assessment & Plan (1) Influenza A: Continuing therapy for influenza. Patient has been fever free today. Will continue tamiflu 75 mg PO BID. Cont. IVF. Recommended patient to walk more. Zofran 4 mg IV every 6 hours as needed. Continue other medications including B12 1000 mcg daily, gabapentin 400 mg every evening, meclizine 25 mg p.o. 3 times daily as needed, and sumatriptan succinate 100 mg p.o. daily as needed headache. (2) Depression: Lexapro 10 mg daily, seroquel for sleep (3) GERD (gastroesophageal reflux disease): Remains on pantoprazole 40 mg p.o. every morning, , ranitidine 150 mg p.o. twice daily Subjective Patient continues to feels weak and tired. She does feel somewhat better today. She has not been out of bed much today. ROS: well nourished well developed. No double vision blurry vision Patient complains of sore throat No palpitations, chest pain or pressure Coughing nonproductive some mild wheezing No abdominal pain nausea vomiting diarrhea changes in appetite or weight No burning urine urine frequency or changes in color No focal joint pain or muscle pain No skin rashes or oral lesions No unusual bruising or bleeding No focused back pain or numbness or loss of strength No changes in memory or confusion Physical Exam Vital Signs (Past 24 Hours): Last Vital Signs Temp 37.0 C 12/06/18 19:21 Pulse 101 12/06/18 19:21 Resp 18 12/06/18 19:21 BP 126/82 12/06/18 19:21 Pulse Ox 95 12/06/18 19:21 Physical Exam: The patient appeared well nourished and normally developed. Vital signs as documented. Head exam is unremarkable. normocephalic, atraumatic oropharynx is erythematous without exudate Neck is without jugular venous distension, thyromegaly, or lymphademopathy Lungs are coarse bilaterally Cardiac exam reveals Rhythm is regular. First and second heart sounds normal. Abdominal exam reveals normal bowel sounds, no masses, no organomegaly Extremities are nonedematous and both pedal pulses are present Neurologic exam is A&Ox3, no focal deficits, strength is equal bilateral Psychologically seems neither anxious or depressed Skin is warm Dry without bruises or lesions.
[2018-12-07] MEDS: QUETIAPINE FUMARATE 25 MG TABLET PO SCH (09:20)
[2018-12-07] MEDS: ESCITALOPRAM OXALATE 10 MG TAB PO SCH (09:20)
[2018-12-07] MEDS: OSELTAMIVIR PHOSPHATE 75 MG CAP PO SCH (09:20)
[2018-12-07] MEDS: ENOXAPARIN INJ 40 MG/0.4 ML SYR SQ SCH (09:20)
[2018-12-07] MEDS: CYANOCOBALAMIN 500 MCG TABLET (VITAMIN B-12) PO SCH (09:20)
[2018-12-07] MEDS: BUDESONIDE 0.5 MG/2 ML VIAL (PULMICORT) NEB SCH (09:57)
[2018-12-07] MEDS: PANTOprazole 40 MG TAB PO SCH (10:03)
[2018-12-07] MEDS ORDERED: LACTATED RINGER'S 1,000 ML IV ONE (12:45)
--- NOTE | 2018-12-13 09:53 | Discharge Summary ---
Date of Service December 07, 2018 Admission HPI Per Admitting Provider The patient is a 38-year-old female who presents to the emergency department with worsening sore throat, chest congestion, shortness of breath at rest with dyspnea on exertion over the past 24 hours. She had a maximum temperature 103.2. 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 Workup in the emergency department and could included testing positive for influenza A. Principal Diagnosis Influenza A Discharge Exam The patient appeared well nourished and normally developed. Vital signs as documented. Head exam is unremarkable. normocephalic, atraumatic oropharynx is erythematous without exudate Neck is without jugular venous distension, thyromegaly, or lymphademopathy Lungs are clear; patient ambulated well without dropping 02 sat below 88 Cardiac exam reveals Rhythm is regular. First and second heart sounds normal. Abdominal exam reveals normal bowel sounds, no masses, no organomegaly Extremities are nonedematous and both pedal pulses are present Neurologic exam is A&Ox3, no focal deficits, strength is equal bilateral Psychologically seems neither anxious or depressed Skin is warm Dry without bruises or lesions. Discharge Data Allergies Allergy/AdvReac Type Severity Reaction Status Date / Time Fish Containing Products Allergy Intermediate Rash Verified 11/14/18 14:13 Consultations 12/03/18 23:30 ED Decision to Admit Stat 12/04/18 02:11 Consult Case Management - Discharge Planning Routine Hospital Course (1) Influenza A: Continuing therapy for influenza. Patient has been fever free today. Will continue tamiflu 75 mg PO BID at discharge Patient appears back to her baseline. Continue other medications including B12 1000 mcg daily, gabapentin 400 mg every evening, meclizine 25 mg p.o. 3 times daily as needed, and sumatriptan succinate 100 mg p.o. daily as needed headache. (2) Depression: Lexapro 10 mg daily, seroquel for sleep (3) GERD (gastroesophageal reflux disease): Remains on pantoprazole 40 mg p.o. every morning, , ranitidine 150 mg p.o. twice daily Total Time Total Time Spent Total Time Spent (In Minutes): 31 Total Time Includes: Examination of the Patient, Discharge Planning and Medication Reconciliation Discharge Plan Discharge Items Patient Disposition: Home - Self-Care Reason For Visit: INFLUENZA A, TACHYCARDIA, DEHYDRATION Discharge Diagnosis: Influenza Discharge Goals: Decrease discomfort Activity: Resume your previous activity Non-emergency contact: Primary Care Provider Call non-emergency contact if: you have any medication questions Follow-up/Referrals: Guillermo Fink III, MD [Primary Care Provider] - 12/14/18 11:00 am (Please, follow up at Dr. Fink's office with his medical laboratory assistant, Keren Milner, on WednesdayDecember 14 at 11:00 am. *If you need to change this appointment, call the office at [phone].) Diet: Regular Addtl Provider Instructions: Followup with PCP in 1 week. Prescriptions: New oseltamivir [Tamiflu] 75 mg Capsule 75 mg PO BID Qty: 13 RF: 0 Continued cyanocobalamin (vitamin B-12) 1,000 mcg Capsule 1,000 mcg PO DAILY RF: 0 meclizine 25 mg Tablet 25 mg PO TID PRN (Reason: Dizziness) RF: 0 ranitidine HCl 150 mg Tablet 150 mg PO BID RF: 0 hydroxyzine pamoate [Vistaril] 25 mg Capsule 25 mg PO QID PRN (Reason: Anxiety) RF: 0 escitalopram oxalate [Lexapro] 10 mg Tablet 10 mg PO QAM RF: 0 Aimovig Autoinjector 70 mg/mL Auto-Injector 70 mg subcut MONTHLY RF: 0 quetiapine 25 mg tablet 25 mg PO DAILY RF: 0 sumatriptan succinate 100 mg tablet 100 mg PO DIRECTED PRN (Reason: Migraine Headache) RF: 0 gabapentin 400 mg capsule 400 mg PO HS RF: 0 pantoprazole 40 mg tablet,delayed release (DR/EC) 40 mg PO QAM RF: 0 Stand-Alone Forms: [facility] Discharge Orders: Discharge Order (Routine); Ordered 12/07/18 Ordered By: Oz Carig Admission Data Admit Date/Time: 12/04/18 01:18 Attending Provider: Oz Craig Admit Provider: Panfilo Hays Primary Care Provider: Guillermo Fink III Service: Telemetry Medical Other Interventions: Discharge Summary Assessment (RN) Last Done: 12/07/18 13:45 DC Date/Time DO NOT enter until pt leaves facility: 12/07/18 14:00
--- NOTE | 2018-12-14 06:32 | Coding Query ---
BMI To promote full compliance with coding requirements relating to patient care, physician participation is requested in all cases of emergency medical technician basic uncertainty. Please assist us with the question(s) below: Please place an X within the parenthesis (x). If other, please document: BMI 46.1 was documented in this record for this patient. If the BMI is significant, please check the box that provides a more specific associated diagnosis: ( ) Overweight/Obese ( ) Obesity (x ) Morbid obesity ( ) Obesity Hypoventilation Syndrome (OHS) ( ) Heathy weight, not significant ( ) Underweight/Thin ( ) Other, please specify Thank you Keyla MI
== END 2018-12-07 14:00 | disposition home or self-care (01) | DRG 194 ==
LOC: ED 20:34 → 2N 12-04 01:18 → SUATTDRO 12-04 01:18 → 2N 12-04 02:02

== ENCOUNTER 2024-08-31 17:35 | Observation (INO) ==
[2024-08-31] MEDS: MoRPHine SULFATE 4 MG/ML 1 ML CARP\\VIAL IV STA (18:27)
[2024-08-31] MEDS: SODIUM CHLORIDE 0.9% 1,000 ML IV STA (18:27)
[2024-08-31 18:28] LABS: Basophils # (auto) 0.03 K/uL (0.00-0.20); Basophils % (auto) 0.6 %; Eosinophils # (auto) 0.09 K/uL (0.00-0.50); Eosinophils % (auto) 1.8 %; Hematocrit (blood only) 37.3 % (37.0-47.0); Hemoglobin 12.6 g/dl (12.0-16.0); Immature Granulocytes # (auto) 0.01 K/uL (0.01-0.20); Immature Granulocytes % (auto) 0.2 %; Lymphocytes % (auto) 30.7 %; Mean Corpuscular Hemoglobin 31.2 pg (25.0-34.0); Mean Corpuscular Hgb Conc 33.8 g/dL (32.0-36.0); Mean Corpuscular Volume 92.3 fL (80.0-100.0); Mean Platelet Volume 11.2 fL (9.4-12.4); Monocytes # (auto) 0.26 K/uL (0.11-0.59); Monocytes % (auto) 5.3 %; Neutrophils # (auto) 2.99 K/uL (1.40-6.50); Neutrophils % (auto) 61.4 %; Platelet Count 179 K/uL (130-400); RDW Coefficient of Variation 13.6 % (11.5-14.5); RDW Standard Deviation 46.5 fL (36.4-46.3); Red Blood Count 4.04 M/uL (4.20-5.40); White Blood Count 4.88 K/ul (4.8-10.8)
[2024-08-31] MEDS: ONDANSETRON INJ 2 MG/ML 2 ML VIAL IV STA (18:28)
[2024-08-31 18:37] LABS: Alanine Aminotransferase 9 U/L (7-52); Albumin Globulin Ratio 1.9 (0.9-2); Albumin Level 3.9 gm/dl (3.4-5.0); Alkaline Phosphatase 64 U/L (34-104); Anion Gap 6 (3-11); Aspartate Aminotransferase 16 U/L (13-39); BUN Creatinine Ratio 12.1 (10-20); Bilirubin,Total 0.7 mg/dl (0.2-1.0); Blood Urea Nitrogen 11 mg/dl (6-23); Calcium 8.7 mg/dl (8.6-10.3); Carbon Dioxide 26 mmol/L (21-32); Chloride 108 mmol/L (98-107); Globulin 2.1 gm/dl (2.5-4.0); Glucose 99 mg/dl (70-99(Fasting)); Lipase 18 U/L (11-82); Potassium 3.4 mmol/L (3.5-5.1); Sodium 140 mmol/L (136-145)
[2024-08-31] MEDS: OPTIRAY 320 100ml IV ONE (18:50)
[2024-08-31] MEDS: PROMETHAZINE 12.5 MG/50.5 ML BAG IV STA (19:44)
--- NOTE | 2024-08-31 19:51 | CT Scan Report ---
EXAM: CT abd pelvis IV con only CLINICAL HISTORY: abdominal pain, vomiting, hx gastric sleeve PW/GS/EB TECHNIQUE: Contrast enhanced CT of the abdomen and pelvis was performed, with the following protocol: axial images, and reconstructed coronal and sagittal images. Intravenous contrast (94ml Opti 320) was administered. One of the following dose reduction techniques was utilized for this exam: Automated exposure control, adjustment of the mA and/or kV according to patient size, and use of iterative reconstruction. COMPARISON: CT abd pelvis IV con only dated 12/30/2023 FINDINGS: Abdomen: Liver: Hepatomegaly with diffuse hypodensity suggestive of steatosis measuring 17.5 cm at the largest craniocaudal span in the right lobe No focal lesions, cysts, or masses were identified. Gallbladder and Biliary System: The gallbladder is surgically removed Pancreas: Pancreatic head, body, and tail are visualized and appear normal in size and density. No pancreatic masses or calcifications were noted. Spleen: Mildly enlarged measuring 14.5 cm with no focal lesions Kidneys and Adrenal Glands: Both kidneys are normal in size, shape, and position. Cortical thickness is within normal limits. No renal calculi or hydronephrosis. Adrenal glands are unremarkable. evidence of gastric sleeve operation with no related collections Appendix: No signs of acute appendicitis. Pelvis: Urinary Bladder: Normal in contour and wall thickness. No intraluminal lesions.Uterus: is not visualized likely surgically removed Left-sided simple adnexal cyst measuring 33X32 mm. The right ovary is normally visualized. Mild pelvic free fluid Vagina: Normal in contour and wall thickness. Cervix: No evidence of mass or abnormal thickening. Peritoneal and Retroperitoneal Structures: No free fluid or abnormal fluid collections were identified within the abdomen No lymphadenopathy was noted. Bowel: The visualized bowel loops are normal in caliber and appearance. No evidence of bowel obstruction or wall thickening. Mild wall thickening of the sigmoid colon is likely due to underdistension. Surgical annabelle are seen along the greater curvature of stomach. Bones and Soft Tissues: Pelvic bones and soft tissues are unremarkable. No fractures or abnormal masses were identified. scanned lower chest cuts are unremarkable IMPRESSION: 1. New acute pathology is identified. 2. Left-sided simple adnexal cyst measuring 33X32 mm with mild pelvic free fluid ,US pelvis and follow up is recommend (Newly developed) 3. Hepatomegaly with steatosis (stable) 4. Splenomegaly (stable) Electronically signed by Matthew Lopes 08-31-2024 7:49 PM
[2024-08-31] MEDS: MoRPHine SULFATE 10 MG/ML CARP/VIAL IV STA (20:28)
--- NOTE | 2024-09-01 00:17 | Emergency Department Note ---
ED Provider Note History of Present Illness Chief Complaint: Abdominal Pain Stated Complaint: ABD PAIN SHARP, VOMITING, NAUSEA Time Seen by Provider: 08/31/24 18:00 Source: patient Mode of arrival: ambulatory Limitations: no limitations This patient is a 43-year-old female who presents to the emergency department accompanied by her for evaluation of abdominal pain. Patient reports that she had a gastric sleeve surgery in December of this year. She states that over the past week, anytime she eats anything she has been vomiting. She has been unable to keep any food down but is able to keep liquids down. She states that today she started to develop some sharp central abdominal pain. She denies any fevers. Bowel movements have been normal, no urinary symptoms. Home Medications Medication Instructions Recorded Confirmed Type cyanocobalamin (vitamin B-12) 1,000 mcg PO QAM 05/24/18 08/28/24 History 1,000 mcg capsule cholecalciferol (vitamin D3) 50 50 mcg PO QAM 02/11/22 08/28/24 History mcg (2,000 unit) capsule (Vitamin D3) buspirone 15 mg tablet 15 mg PO BID 07/15/22 08/28/24 History cyclobenzaprine 10 mg tablet 10 mg PO BID PRN muscle spasm #30 12/23/22 08/28/24 Rx tabs rimegepant 75 mg disintegrating 75 mg PO ONCE PRN migraine 10/18/23 08/28/24 Rx tablet (Nurtec ODT) headache #8 tabs escitalopram oxalate 20 mg tablet 20 mg PO QAM 90 days #90 tabs 03/28/24 08/28/24 Rx (Lexapro) erenumab-aooe 140 mg/mL 140 mg subcut MONTHLY 08/28/24 08/28/24 History subcutaneous auto-injector (Aimovig Autoinjector) esomeprazole magnesium 40 mg 40 mg PO QAM 08/28/24 08/28/24 History capsule,delayed release (Nexium) topiramate 100 mg tablet (Topamax) 100 mg PO QPM 08/28/24 08/28/24 History zolmitriptan 2.5 mg tablet (Zomig) 2.5 mg PO .COMPLEX PRN migraine 08/28/24 08/28/24 History headache Allergies Allergy/AdvReac Type Severity Reaction Status Date / Time Fish Containing Products Allergy Intermediate Rash Verified 08/28/24 13:47 Past Med/Surg History Problem List (Updated 09/01/24 @ 01:18 by Alex Friedman DO) Adnexal cyst Encounter for pre-operative examination Paresthesia of left upper extremity Neck stiffness Neck pain Intermittent palpitations Allergic rhinitis due to pollen Snoring Hypersomnia CASSI III (cervical intraepithelial neoplasia III) History of claustrophobia Plantar fasciitis Mixed hyperlipidemia Binge eating disorder Metabolic syndrome Carpal tunnel syndrome, right Morbid obesity Strain of right biceps tendon Migraine without aura, not intractable, without status migrainosus Anxiety Eustachian tube dysfunction Bipolar I disorder, single manic episode (Acute) Mitral valve prolapse syndrome (Acute) Vitamin B12 deficiency (Acute) Vitamin D deficiency (Acute) GERD (gastroesophageal reflux disease) Depression Degenerative disc disease Medical History Hypertriglyceridemia Chiari malformation s/p decompression (~2014) No issues since per 05/12/[address] "There has been prior posterior suboccipital decompression. There is persistent caudal positioning of the cerebellar tonsils consistent with Chiari I malformation. 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 no issues with MV on 12/2022 ECHO Hx of Lyme disease 2014 - antibiotic completed Hx of ectopic Anxiety and depression Morbid obesity Pre-diabetes s/p gastric sleeve procedure - no longer an issue GERD (gastroesophageal reflux disease) controlled, stable per pt Post traumatic stress disorder Deep vein thrombosis Around 2006 (LUE- unknown etiology) Headache h/o post spinal tap PAUL and generalized weakness in 2018 per 09/2020 [facility] neuro note Surgical History Hx laparoscopic cholecystectomy Status post sleeve gastrectomy 12/22/23 @ [facility] Myriam Villanueva Hx of hysterectomy History of carpal tunnel release Right History of MRI Right elbow MRI (02/13/22): MAC at [facility]. No issues noted per post-op anesthesia progress note. History of surgery Chiari Malformation repair (~2014; [facility]) Hx of foot surgery R/L repair of plantar fasciitis and removal of heel spurs History of laparoscopy History of tooth extraction Family History Grandmother (Paternal) Family history of diabetes mellitus Family/Other Chiari malformation Venous thrombosis Grandmother Stroke Mother Hypothyroidism Father Mitral valve prolapse Grandmother (Maternal) Breast cancer Denies family history of Ovarian cancer Colorectal cancer Social History Smoking Status: Never smoker Second Hand Exposure: No; Do You Dip or Chew Tobacco: No; Hx Alcohol Use: No Hx Substance Use: No Preferred Language: Brazilian Communication Ability: Effective Eap Counselor Required: No Beliefs That Will Affect Care: None marital status: Current Living Situation: Spouse current occupational status: employed 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 Feels Safe at Home: Yes Diet: low carbohydrate and other Diet Comment: high protein Physical Activity Frequency: 5-6 Times per Week Assistive Devices: Glasses Physical Exam Vital Signs Vital Signs - 24 hr 08/31/24 17:40 08/31/24 18:10 08/31/24 19:00 Temperature 36.8 C Temperature Source Temporal Artery Scan Pulse Rate 86 85 Pulse Rate [Finger] 79 Pulse Rhythm Pulse Rhythm [Finger] Regular Pulse Strength [Finger] Normal Respiratory Rate 20 20 Respiratory Effort / Characteristics Non-Labored Respiratory Depth Normal Normal Respiratory Pattern Blood Pressure 120/77 Blood Pressure [Right Arm] 104/60 Blood Pressure Mean 91 Blood Pressure Mean [Right Arm] 74 Blood Pressure Position [Right Arm] Pulse Oximetry 97 99 Oxygen Delivery Method Room Air Room Air Sepsis Recent Fever Within 48 Hours No Sepsis New/Unexplained Change in Mental Status N/A Sepsis Action Taken by Nursing No Action Required 08/31/24 19:17 08/31/24 21:00 08/31/24 22:05 Temperature Temperature Source Pulse Rate 76 80 Pulse Rate [Finger] 77 Pulse Rhythm Regular Pulse Rhythm [Finger] Regular Pulse Strength [Finger] Normal Respiratory Rate 20 20 Respiratory Effort / Characteristics Non-Labored Respiratory Depth Normal Respiratory Pattern Regular Blood Pressure Blood Pressure [Right Arm] 103/61 Blood Pressure Mean Blood Pressure Mean [Right Arm] 75 Blood Pressure Position [Right Arm] Pulse Oximetry 97 96 Oxygen Delivery Method Room Air Room Air Sepsis Recent Fever Within 48 Hours Sepsis New/Unexplained Change in Mental Status Sepsis Action Taken by Nursing 08/31/24 23:00 09/01/24 01:00 Temperature Temperature Source Pulse Rate Pulse Rate [Finger] 78 74 Pulse Rhythm Pulse Rhythm [Finger] Regular Regular Pulse Strength [Finger] Normal Normal Respiratory Rate 20 20 Respiratory Effort / Characteristics Non-Labored Non-Labored Spontaneous Respiratory Depth Normal Normal Respiratory Pattern Regular Regular Blood Pressure Blood Pressure [Right Arm] 103/62 120/68 Blood Pressure Mean Blood Pressure Mean [Right Arm] 75 85 Blood Pressure Position [Right Arm] Lying Pulse Oximetry 95 94 Oxygen Delivery Method Room Air Room Air Sepsis Recent Fever Within 48 Hours Sepsis New/Unexplained Change in Mental Status Sepsis Action Taken by Nursing VITALS: Vitals are noted on the nurse's note and reviewed by myself. GENERAL: This is a 43-year-old female, in no acute distress, well-developed well-nourished. SKIN: The skin was without rashes. EYES: Pupils equal round and reactive to light and accommodation. MOUTH: Mucous membranes moist. Tonsils are not enlarged. Pharynx without erythema or exudate. NECK: Supple without nuchal rigidity. No lymphadenopathy. HEART: Regular rate and rhythm without murmurs gallops or rubs. LUNGS: Clear to auscultation bilaterally without wheezes, rales or rhonchi. ABDOMEN: Positive bowel sounds x 4. Soft, generalized tenderness to palpation. No guarding or rebound tenderness. NEURO: Patient was alert and oriented. Course Administered Medications Discontinued Medications Sodium Chloride (Nss) 1,000 mls @ 999 mls/hr IV .Q1H1M STA Stop: 08/31/24 19:13 Last Infusion: 08/31/24 19:43 Dose: Infused Documented By: Admin: 08/31/24 18:27 Dose: 999 mls/hr Documented By: FRANK Promethazine HCl (Phenergan) 12.5 mg in 50.5 mls @ 202 mls/hr IV NOW STA Stop: 08/31/24 19:51 Last Infusion: 08/31/24 20:16 Dose: Infused Documented By: Admin: 08/31/24 19:44 Dose: 202 mls/hr Documented By: LONA Ioversol (Optiray 320 100ml) 94 ml IV ONCE ONE Stop: 08/31/24 18:51 Last Admin: 08/31/24 18:50 Dose: 94 ml Documented By: PLW Morphine Sulfate (Morphine Sulfate 4 Mg/Ml 1 Ml Carp\\Vial) 4 mg IV NOW STA Stop: 08/31/24 18:14 Last Admin: 08/31/24 18:27 Dose: 4 mg Documented By: MMG Morphine Sulfate (Morphine Sulfate 10 Mg/Ml Carp/Vial) 6 mg IV NOW STA Stop: 08/31/24 20:23 Last Admin: 08/31/24 20:28 Dose: 6 mg Documented By: NAW Ondansetron HCl (Ondansetron Inj 2 Mg/Ml 2 Ml Vial) 4 mg IV NOW STA Stop: 08/31/24 18:14 Last Admin: 08/31/24 18:28 Dose: 4 mg Documented By: MMG Medical Decision Making Differential Diagnosis Appendicitis, ovarian cyst, ovarian torsion, TOA, PID, infections, diverticulitis, UTI, obstruction, mesenteric ischemia, aortic pathology, inflammatory bowel disease, renal colic, PUD, pancreatitis, biliary pathology, hernia, volvulus, constipation, as well as other pathologies. Laboratory Data Attestation: I reviewed the patient's lab results. 08/31/24 18:01 08/31/24 18:01 Lab Results 08/31/24 Range/Units 18:01 WBC 4.88 (4.8-10.8) K/ul RBC 4.04 L (4.20-5.40) M/uL Hgb 12.6 (12.0-16.0) g/dl Hct 37.3 (37.0-47.0) % MCV 92.3 (80.0-100.0) fL MCH 31.2 (25.0-34.0) pg MCHC 33.8 (32.0-36.0) g/dL RDW Std Deviation 46.5 H (36.4-46.3) fL RDW Coeff of Zuleyma 13.6 (11.5-14.5) % Plt Count 179 (130-400) K/uL MPV 11.2 (9.4-12.4) fL Immature Gran % (Auto) 0.2 % Neut % (Auto) 61.4 % Lymph % (Auto) 30.7 % [place] % (Auto) 5.3 % Eos % (Auto) 1.8 % Baso % (Auto) 0.6 % Neut # (Auto) 2.99 (1.40-6.50) K/uL Lymph # (Auto) 1.50 (1.20-3.40) K/uL [place] # (Auto) 0.26 (0.11-0.59) K/uL Eos # (Auto) 0.09 (0.00-0.50) K/uL Baso # (Auto) 0.03 (0.00-0.20) K/uL Immature Gran # (Auto) 0.01 (0.01-0.20) K/uL Sodium 140 (136-145) mmol/L Potassium 3.4 L (3.5-5.1) mmol/L Chloride 108 H (98-107) mmol/L Carbon Dioxide 26 (21-32) mmol/L Anion Gap 6 (3-11) BUN 11 (6-23) mg/dl Creatinine 0.91 (0.6-1.2) mg/dl Est Cr Clr Drug Dosing Not Reportable eGFR 80.78 BUN/Creatinine Ratio 12.1 (10-20) Glucose 99 (70-99(Fasting)) mg/dl Calcium 8.7 (8.6-10.3) mg/dl Total Bilirubin 0.7 (0.2-1.0) mg/dl AST 16 (13-39) U/L ALT 9 (7-52) U/L Alkaline Phosphatase 64 (34-104) U/L Total Protein 6.0 (6.0-8.3) gm/dl Albumin 3.9 (3.4-5.0) gm/dl Globulin 2.1 L (2.5-4.0) gm/dl Albumin/Globulin Ratio 1.9 (0.9-2) Lipase 18 (11-82) U/L Imaging Data Attestation: I personally reviewed and interpreted this imaging study as follows: Radiologist's Impression: Abdomen/Pelvis CT 08/31/24 18:14 EXAM: CT abd pelvis IV con only CLINICAL HISTORY: abdominal pain, vomiting, hx gastric sleeve PW/GS/EB TECHNIQUE: Contrast enhanced CT of the abdomen and pelvis was performed, with the following protocol: axial images, and reconstructed coronal and sagittal images. Intravenous contrast (94ml Opti 320) was administered. One of the following dose reduction techniques was utilized for this exam: Automated exposure control, adjustment of the mA and/or kV according to patient size, and use of iterative reconstruction. COMPARISON: CT abd pelvis IV con only dated 12/30/2023 FINDINGS: Abdomen: Liver: Hepatomegaly with diffuse hypodensity suggestive of steatosis measuring 17.5 cm at the largest craniocaudal span in the right lobe No focal lesions, cysts, or masses were identified. Gallbladder and Biliary System: The gallbladder is surgically removed Pancreas: Pancreatic head, body, and tail are visualized and appear normal in size and density. No pancreatic masses or calcifications were noted. Spleen: Mildly enlarged measuring 14.5 cm with no focal lesions Kidneys and Adrenal Glands: Both kidneys are normal in size, shape, and position. Cortical thickness is within normal limits. No renal calculi or hydronephrosis. Adrenal glands are unremarkable. evidence of gastric sleeve operation with no related collections Appendix: No signs of acute appendicitis. Pelvis: Urinary Bladder: Normal in contour and wall thickness. No intraluminal lesions.Uterus: is not visualized likely surgically removed Left-sided simple adnexal cyst measuring 33X32 mm. The right ovary is normally visualized. Mild pelvic free fluid Vagina: Normal in contour and wall thickness. Cervix: No evidence of mass or abnormal thickening. Peritoneal and Retroperitoneal Structures: No free fluid or abnormal fluid collections were identified within the abdomen No lymphadenopathy was noted. Bowel: The visualized bowel loops are normal in caliber and appearance. No evidence of bowel obstruction or wall thickening. Mild wall thickening of the sigmoid colon is likely due to underdistension. Surgical annabelle are seen along the greater curvature of stomach. Bones and Soft Tissues: Pelvic bones and soft tissues are unremarkable. No fractures or abnormal masses were identified. scanned lower chest cuts are unremarkable IMPRESSION: 1. New acute pathology is identified. 2. Left-sided simple adnexal cyst measuring 33X32 mm with mild pelvic free fluid ,US pelvis and follow up is recommend (Newly developed) 3. Hepatomegaly with steatosis (stable) 4. Splenomegaly (stable) Electronically signed by Matthew Lopes 08-31-2024 7:49 PM ECG Data Attestation: I personally reviewed and interpreted this ECG as follows: Indication: + abdominal pain Rate (beats per minute): 75 Rhythm: + normal sinus ECG Intervals/blocks: + Normal QRS ECG ST segments: + Normal ST segments Change: no significant change MDM Narrative This patient is a 43-year-old female who presents to the emergency department for evaluation of abdominal pain. Patient has a history of a gastric sleeve within the past year. She reports she has had vomiting over the past week and is now having abdominal pain. Labs are unremarkable, with no leukocytosis, anemia or concerning electrolyte abnormalities. Patient unable to provide a urine sample after several hours in the emergency department. A CT scan was performed and shows evidence of a left ovarian cyst. Ultrasound then performed and follow-up which shows a complex left cyst, no evidence of ovarian torsion. Patient with persistent pain despite multiple rounds of pain medication. At this time options of care were discussed with the patient including discharge home and follow-up versus observation for intractable pain. Patient is not comfortable going home. Case was discussed with the [facility] hospitalist service who will evaluate the patient for further care. Discharge Plan Visit Data Chief Complaint: Abdominal Pain Stated Complaint: ABD PAIN SHARP, VOMITING, NAUSEA ED Provider: Gala Charlton ED Midlevel Provider: Asya Thomson Forms Stand Alone Forms: My [facility] Prescriptions Prescriptions: No Action escitalopram oxalate [Lexapro] 20 mg tablet 20 mg PO QAM 90 Days Qty: 90 4RF cyclobenzaprine 10 mg tablet 10 mg PO BID PRN (Reason: muscle spasm) Qty: 30 0RF Nurtec ODT 75 mg tablet,disintegrating 75 mg PO ONCE PRN (Reason: migraine headache) Qty: 8 6RF buspirone 15 mg tablet 15 mg PO BID cyanocobalamin (vitamin B-12) 1,000 mcg Capsule 1,000 mcg PO QAM cholecalciferol (vitamin D3) [Vitamin D3] 50 mcg (2,000 unit) Capsule 50 mcg PO QAM zolmitriptan [Zomig] 2.5 mg tablet 2.5 mg PO .COMPLEX PRN (Reason: migraine headache) Rx Instructions: 2.5 mg orally Take at the onset of a migraine, may repeat in 2 hours if needed, do not exceed 2-3 days a week PRN; esomeprazole magnesium [Nexium] 40 mg capsule,delayed release(DR/EC) 40 mg PO QAM topiramate [Topamax] 100 mg tablet 100 mg PO QPM Aimovig Autoinjector 140 mg/mL auto-injector 140 mg subcut MONTHLY Referrals Referrals: Silvana Mcgarry CRNP [Primary Care Provider] -
--- NOTE | 2024-09-01 00:50 | History & Physical Report ---
Date of Service September 01, 2024 Assessment & Plan (1) Abdominal pain: Plan: -Patient with a history of gastric sleeve that was placed back in December at [facility] in [place]. -CBC, CMP, and lipase unremarkable. -Abdominal pelvis CT showed stable hepatomegaly and splenomegaly -Abdominal pelvis CT also showed a left simple adnexal cyst measuring 33 x 32 mm with mild pelvic free fluid -Simple adnexal cyst may be the cause of abdominal pain though patient has not been able to tolerate food for the last week. -Pain meds as needed, nausea meds as needed. Continue on home Nexium 40 mg daily. -Will start on NSS at 125 mL an hour -Will consult GI. (2) Vomiting: Plan: -Patient with vomiting and unable to tolerate food. She has not been able to eat any solid food for the last week without vomiting. -History of gastric sleeve. Has lost approximately 100 pounds. -Follows with [facility] and states that she was supposed to have a upper GI series done as an outpatient. This has not been performed yet. -Consult with GI. -Will start with clear liquid diet and advance as tolerated. (3) Adnexal cyst: Plan: -Abdominal pelvis CT also showed a left simple adnexal cyst measuring 33 x 32 mm with mild pelvic free fluid. -Pelvic ultrasound ordered and pending results. -History of hysterectomy. -Will hold off on MAILING MANAGER referral at this time pending results of pelvic ultrasound. -Continue with pain management. (4) Anxiety: Plan: -Continue home meds of BuSpar and Lexapro. (5) GERD (gastroesophageal reflux disease): Plan: -Continue on home Nexium 40 mg daily. (6) Migraine: Plan: -Continue home medications. Plan Fluids: NSS at 125 mL an hour Nutrition: Clear liquids advance as tolerated Code status: Full code DVT ppx: SCDs Consults: GI Dispo: med/surg History of Present Illness Chief Complaint: Abdominal pain, unable to tolerate food Primary Care Provider: LUIS EDUARDO Bower Patient is a 43-year-old female with past medical history of gastric sleeve back in December, GERD, migraine, anxiety, depression who presents to the hospital with abdominal pain. Patient states that over the last week she has not been able to tolerate any food. She states that every time she eats about 15 minutes later she has vomiting. She has also been having severe nausea. She is able to tolerate liquids though is unable to tolerate any solid foods. States that she has no issues with swallowing or pain with swallowing. Patient then started to have sharp abdominal pain today right below her bellybutton. States that she did not have this abdominal pain over the last week. Pain started today suddenly. Of note patient has lost about 100 pounds while being on the gastric sleeve. She states that she follows with [facility] surgery in [place] regarding her gastric sleeve. States that she has recently seen the surgeon regarding her issues with unable to tolerate any food and he ordered a upper GI that has not been completed yet. Patient denies any fevers, chills, cough, shortness of breath, chest pain, diarrhea, or constipation. Bowel movements have been normal. No urinary symptoms. Allergies Allergy/AdvReac Type Severity Reaction Status Date / Time Fish Containing Products Allergy Intermediate Rash Verified 08/28/24 13:47 shellfish derived Allergy Verified 09/02/24 10:09 Home Medications Medication Instructions Recorded Confirmed Type cyanocobalamin (vitamin B-12) 1,000 mcg PO QAM 05/24/18 08/28/24 History 1,000 mcg capsule cholecalciferol (vitamin D3) 50 50 mcg PO QAM 02/11/22 08/28/24 History mcg (2,000 unit) capsule (Vitamin D3) buspirone 15 mg tablet 15 mg PO BID 07/15/22 08/28/24 History cyclobenzaprine 10 mg tablet 10 mg PO BID PRN muscle spasm #30 12/23/22 08/28/24 Rx tabs rimegepant 75 mg disintegrating 75 mg PO ONCE PRN migraine 10/18/23 08/28/24 Rx tablet (Nurtec ODT) headache #8 tabs escitalopram oxalate 20 mg tablet 20 mg PO QAM 90 days #90 tabs 03/28/24 08/28/24 Rx (Lexapro) erenumab-aooe 140 mg/mL 140 mg subcut MONTHLY 08/28/24 08/28/24 History subcutaneous auto-injector (Aimovig Autoinjector) esomeprazole magnesium 40 mg 40 mg PO QAM 08/28/24 08/28/24 History capsule,delayed release (Nexium) topiramate 100 mg tablet (Topamax) 100 mg PO QPM 08/28/24 08/28/24 History zolmitriptan 2.5 mg tablet (Zomig) 2.5 mg PO .COMPLEX PRN migraine 08/28/24 08/28/24 History headache Past Med/Surg History Problem List (Updated 09/02/24 @ 16:58 by Alex Conde PA-C) Abdominal pain Dysphagia Adnexal cyst Encounter for pre-operative examination Paresthesia of left upper extremity Neck stiffness Neck pain Intermittent palpitations Allergic rhinitis due to pollen Snoring Hypersomnia CASSI III (cervical intraepithelial neoplasia III) History of claustrophobia Plantar fasciitis Mixed hyperlipidemia Binge eating disorder Metabolic syndrome Carpal tunnel syndrome, right Morbid obesity Strain of right biceps tendon Migraine without aura, not intractable, without status migrainosus Anxiety Eustachian tube dysfunction Bipolar I disorder, single manic episode (Acute) Mitral valve prolapse syndrome (Acute) Vitamin B12 deficiency (Acute) Vitamin D deficiency (Acute) GERD (gastroesophageal reflux disease) Depression Degenerative disc disease Medical History Hypertriglyceridemia Chiari malformation s/p decompression (~2014) No issues since per 05/12/[address] "There has been prior posterior suboccipital decompression. There is persistent caudal positioning of the cerebellar tonsils consistent with Chiari I malformation. 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 no imaging technologist no issues with MV on 12/2022 ECHO Hx of Lyme disease 2015 - antibiotic completed Hx of ectopic Anxiety and depression Morbid obesity Pre-diabetes s/p gastric sleeve procedure - no longer an issue GERD (gastroesophageal reflux disease) controlled, stable per pt Post traumatic stress disorder Deep vein thrombosis Around 2006 (LUE- unknown etiology) Headache h/o post spinal tap PAUL and generalized weakness in 2018 per 09/2020 [facility] note Surgical History Hx laparoscopic cholecystectomy Status post sleeve gastrectomy 12/22/23 @ [facility] Myriam Villanueva Hx of hysterectomy History of carpal tunnel release Right History of MRI Right elbow MRI (02/13/22): MAC at [facility]. No issues noted per post-op anesthesia progress note. History of surgery Chiari Malformation repair (~2014; [facility]) Hx of foot surgery R/L repair of plantar fasciitis and removal of heel spurs History of laparoscopy History of tooth extraction Family History Grandmother (Paternal) Family history of diabetes mellitus Family/Other Chiari malformation Venous thrombosis Grandmother Stroke Mother Hypothyroidism Father Mitral valve prolapse Grandmother (Maternal) Breast cancer Denies family history of Ovarian cancer Colorectal cancer Social History Smoking Status: Never smoker Second Hand Exposure: No; Do You Dip or Chew Tobacco: No; Tobacco Cessation Education Requested by Patient: No Hx Alcohol Use: No Hx Substance Use: No Preferred Language: Kazakh Communication Ability: Effective Press Tender Required: No Beliefs That Will Affect Care: None marital status: Current Living Situation: Family Current Living Situation Comment: lives with the and children current occupational status: employed 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 Other Information That Helps Us Care for You: No Feels Safe at Home: Yes Safety Concerns: Feels Safe At This Time Diet: low carbohydrate and other Diet Comment: high protein Physical Activity Frequency: 5-6 Times per Week Assistive Devices: None Review of Systems Review of Systems: All systems reviewed & are unremarkable except as noted in Subjective Physical Exam Physical Exam: Constitutional: well-appearing, no acute distress HEENT: NCAT, no conjunctival injection CV: regular rhythm, no murmur appreciated, extremities well-perfused, no LE edema Resp: CTABL, no wheezes/rales/rhonchi appreciated, no increased work of breathing GI: soft, nondistended, diffuse abdominal tenderness, right adnexa tenderness, B S normoactive MSK: no gross deformities appreciated Skin: warm, dry, no rash appreciated Neuro: alert, oriented, no focal neurologic deficit appreciated Results & Data Results & Data Vital Signs (Past 12 Hours) Vital Signs Temp Pulse Pulse Resp BP BP Pulse Ox 08/31/24 23:00 78 20 103/62 95 08/31/24 22:05 80 08/31/24 21:00 77 20 103/61 96 08/31/24 19:17 76 20 97 08/31/24 19:00 79 20 104/60 99 08/31/24 18:10 85 08/31/24 17:40 36.8 C 86 20 120/77 97 O2 Del Method 08/31/24 23:00 Room Air 08/31/24 22:05 08/31/24 21:00 Room Air 08/31/24 19:17 Room Air 08/31/24 19:00 Room Air 08/31/24 18:10 08/31/24 17:40 Room Air Supervising Physician Co-Signing Physician Notes Attending addendum: I have physically seen this patient, have supervised the medical residents activities, and agree with the H&P unless as otherwise noted. Assessment and Plan: Intractable abdominal pain with vomiting/history of gastric sleeve/01-04-- CT abdomen and pelvis showing stable hepatomegaly and splenomegaly No signs of bowel obstruction Patient reportedly was to get an upper GI evaluation in the outpatient setting Consult gastroenterology as inpatient, more likely to need a scope within upper GI evaluation while inpatient Follow-up ultrasound abdomen and pelvis as noted Continue PPI Clear liquid diet and advance as tolerated Adnexal cyst- Follow-up results of pelvic ultrasound as noted Anxiety- Continue BuSpar and Lexapro Migraine- Continue home medications as noted Resident Activity Tracking Resident Involvement: Resident Care Provided Care Provided: Adult Hospital Medicine (1) Abdominal pain Abdominal location: unspecified location Qualified Code(s): R10.9 - Unspecified abdominal pain (2) Vomiting Nausea presence: with nausea Vomiting type: unspecified Qualified Code(s): R11.2 - Nausea with vomiting, unspecified
[2024-09-01] MEDS: HYDROmorphone INJ 0.5 MG/0.5 ML SYR IV STA (01:57)
[2024-09-01] MEDS ORDERED: ZOLMITRIPTAN 2.5 MG PO PRN (02:48)
[2024-09-01] MEDS ORDERED: MoRPHine SULFATE 2 MG/ML CARP IV PRN (02:48)
--- NOTE | 2024-09-01 03:49 | Ultrasound Report ---
Exam(s): US PELVIS EXAM: US Pelvis Transabdominal, Complete CLINICAL HISTORY: Reason for exam: abd pain, cyst on CT. TECHNIQUE: Real-time complete transabdominal pelvic ultrasound with image documentation. COMPARISON: CT scan dated 01/19/2024 FINDINGS: Uterus/cervix: The patient is status post hysterectomy. Right ovary: The right ovary measured 1.8 x 1.3 x 1.1 cm. It demonstrated vascular flow. Left ovary: Left ovary measured 4.1 x 3.9 x 2.2 cm. It demonstrated vascular flow. It contains a complex cyst measuring 3 cm.. Free fluid: There is a small amount of free fluid in the pelvis. IMPRESSION: There is a 3 cm complex left ovarian cyst. There is a small amount of free fluid in the pelvis. A follow-up exam is recommended in 6 to 8 weeks to evaluate for resolution Electronically signed by: Eusebio Riley MD 09/01/24 03:48 AM
[2024-09-01] MEDS: SODIUM CHLORIDE 0.9% 1,000 ML IV SCH (04:07)
[2024-09-01] MEDS: MoRPHine SULFATE 4 MG/ML 1 ML CARP\\VIAL IV PRN (06:32)
[2024-09-01] MEDS: ONDANSETRON INJ 2 MG/ML 2 ML VIAL IV PRN (06:39)
[2024-09-01 08:38] LABS: Basophils # (auto) 0.02 K/uL (0.00-0.20); Basophils % (auto) 0.7 %; Eosinophils # (auto) 0.08 K/uL (0.00-0.50); Eosinophils % (auto) 2.7 %; Hematocrit (blood only) 36.3 % (37.0-47.0); Hemoglobin 11.9 g/dl (12.0-16.0); Lymphocytes # (auto) 1.14 K/uL (1.20-3.40); Lymphocytes % (auto) 38.1 %; Mean Corpuscular Hemoglobin 30.9 pg (25.0-34.0); Mean Corpuscular Hgb Conc 32.8 g/dL (32.0-36.0); Mean Corpuscular Volume 94.3 fL (80.0-100.0); Mean Platelet Volume 11.1 fL (9.4-12.4); Monocytes # (auto) 0.18 K/uL (0.11-0.59); Neutrophils # (auto) 1.57 K/uL (1.40-6.50); Neutrophils % (auto) 52.5 %; Platelet Count 142 K/uL (130-400); RDW Coefficient of Variation 13.6 % (11.5-14.5); RDW Standard Deviation 47.5 fL (36.4-46.3); Red Blood Count 3.85 M/uL (4.20-5.40); White Blood Count 2.99 K/ul (4.8-10.8)
[2024-09-01 08:46] LABS: Albumin Globulin Ratio 1.5 (0.9-2); Bilirubin,Total 0.6 mg/dl (0.2-1.0); Calcium 8.1 mg/dl (8.6-10.3); Creatinine Clr Calc Pharmacy 88.7 ml/min; Magnesium 1.8 mg/dl (1.7-2.4); Potassium 3.5 mmol/L (3.5-5.1)
[2024-09-01] MEDS: PANTOprazole 40 MG TAB PO SCH ×2 (10:02→20:15)
[2024-09-01] MEDS: CYANOCOBALAMIN (B-12) 500 MCG TABLET PO SCH (10:02)
[2024-09-01] MEDS: busPIRone 15 MG TAB PO SCH (10:02)
[2024-09-01] MEDS: ESCITALOPRAM OXALATE 20 MG TAB PO SCH (10:02)
[2024-09-01] MEDS: CHOLECALCIFEROL 25 MCG (1000 UNITS) TAB PO SCH (10:02)
--- NOTE | 2024-09-01 10:18 | Gastrointestinal Consultation ---
Date of Consultation September 01, 2024 Assessment & Plan (1) Abdominal pain: 43 year old female w/ history of Bipolar 1, anxiety/depression, metabolic syndrome, dyslipidemia, binge-eating disorder, obesity s/p gastric sleeve in [facility] admitted w/ abd pain, inability to advance diet past liquids since gastric sleeve in December. No acute findings on CTAP Lipase, LFTs on admission WNL She reports recent EGD at [facility] by her surgical team consistent with GERD Increase Pantoprazole to 40 mg twice daily Trial of liquid Carafate QID for 14 days Scheduled anti-emetics Consider upper GI series Consider transfer to [facility] to be evaluated by her surgical team I spent a total of 60 minutes on the date of service in review of patient's record, and previously obtained information in person and appropriate medical visit, discussion and education of plan, with patient and/or caregiver, placing orders for tests/referral/procedures as medically necessary and documentation of pertinent clinical information in patient's medical records for their visit today. Supervising Physician Co-Signing Physician Notes I personally saw and examined the patient. I have reviewed the chart and agree with the documentation provided by the CUTTER GRINDER OPERATOR including discussion about the assessment, treatment and plan. Briefly, 43 year old female w/ history of Bipolar 1, anxiety/depression, metabolic syndrome, dyslipidemia, binge-eating disorder, obesity s/p gastric sleeve in [facility] admitted w/ abd pain, inability to advance diet past liquids since gastric sleeve in December. No significant abdominal pain. I suspect most of this is related to dietary indiscretion and change in the size of her stomach and lack of accommodation. Suggest upper GI series to evaluate and rule out a mechanical problem: Stricture, peptic ulcer. Given that she is 8 months post gastric sleeve, complications of leak infection or ischemia are very rare. Meantime suggest small frequent meals with mostly liquid protein shakes. She can then slowly add as tolerated. I told her that she is going to have to take very small frequent meals. If symptoms persist, can consider outpt Gastric emptying study. History of Present Illness Reason for Consultation: unable to tolerate food, abd pain Requesting Physician: Pawan Escalante DO Attending Physician: Pawan Escalante DO History of Present Illness 43 year old female w/ history of Bipolar 1, anxiety/depression, metabolic syndrome, dyslipidemia, binge-eating disorder, obesity s/p gastric sleeve in [facility] admitted w/ abd pain, inability to tolerate oral intake. Pt was seen and evaluated, chart reviewed. She suggests her symptoms started shortly after gastric sleeve. She notes that she followed up with her surgeon at [facility] and an EGD was performed. I do not have access to this study but she repots this was reported as normal and was told to trial acid reflux medication. Suggests she tried different PPIs, antietmics without much relief. Followed up with her primary care who provided her with a prescription of reglan - does not feel like this was helpful. Suggests she tolerated liquid diet well. However, any advancement past liquid results in immediate upper abd pain followed by episode of nausea/vomiting shortly after. No black or bloody emesis. Denies change in bowel habits. No report of black or blood stools. Tbili 0.6 AST 55 ALT 34 ALKP 73 Lipase 18 CTAP 2023: Hepatomegaly with diffuse hypodensity suggestive of steatosis measuring No focal lesions, cysts, or masses were identified. The gallbladder is surgically removed. Pancreatic head, body, and tail are visualized and appear normal in size and density. No pancreatic masses or calcifications were noted. Evidence of gastric sleeve operation with no related collections. No signs of acute appendicitis. No free fluid or abnormal fluid collections were identified within the abdomen No lymphadenopathy was noted. The visualized bowel loops are normal in caliber and appearance. No evidence of bowel obstruction or wall thickening. Mild wall thickening of the sigmoid colon is likely due to underdistension. Surgical annabelle are seen along the greater curvature of stomach. EGD 2023: per patient at [facility] a few months ago, unremarkable Allergies Allergy/AdvReac Type Severity Reaction Status Date / Time Fish Containing Products Allergy Intermediate Rash Verified 08/28/24 13:47 Home Medications Medication Instructions Recorded Confirmed Type cyanocobalamin (vitamin B-12) 1,000 mcg PO QAM 05/24/18 08/28/24 History 1,000 mcg capsule cholecalciferol (vitamin D3) 50 50 mcg PO QAM 02/11/22 08/28/24 History mcg (2,000 unit) capsule (Vitamin D3) buspirone 15 mg tablet 15 mg PO BID 07/15/22 08/28/24 History cyclobenzaprine 10 mg tablet 10 mg PO BID PRN muscle spasm #30 12/23/22 08/28/24 Rx tabs rimegepant 75 mg disintegrating 75 mg PO ONCE PRN migraine 10/18/23 08/28/24 Rx tablet (Nurtec ODT) headache #8 tabs escitalopram oxalate 20 mg tablet 20 mg PO QAM 90 days #90 tabs 03/28/24 08/28/24 Rx (Lexapro) erenumab-aooe 140 mg/mL 140 mg subcut MONTHLY 08/28/24 08/28/24 History subcutaneous auto-injector (Aimovig Autoinjector) esomeprazole magnesium 40 mg 40 mg PO QAM 08/28/24 08/28/24 History capsule,delayed release (Nexium) topiramate 100 mg tablet (Topamax) 100 mg PO QPM 08/28/24 08/28/24 History zolmitriptan 2.5 mg tablet (Zomig) 2.5 mg PO .COMPLEX PRN migraine 08/28/24 1 10/29/23 History headache Patient History Medical History Hypertriglyceridemia Chiari malformation s/p decompression (~2014) No issues since per 05/12/[address] "There has been prior posterior suboccipital decompression. There is persistent caudal positioning of the cerebellar tonsils consistent with Chiari I malformation. 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 no flake drier no issues with MV on 12/2022 ECHO Hx of Lyme disease 2015 - antibiotic completed Hx of ectopic Anxiety and depression Morbid obesity Pre-diabetes s/p gastric sleeve procedure - no longer an issue GERD (gastroesophageal reflux disease) controlled, stable per pt Post traumatic stress disorder Deep vein thrombosis Around 2006 (LUE- unknown etiology) Headache h/o post spinal tap PAUL and generalized weakness in 2018 per 09/2020 [facility] note Surgical History Hx laparoscopic cholecystectomy Status post sleeve gastrectomy 12/22/23 @ [facility] Myriam Villanueva Hx of hysterectomy History of carpal tunnel release Right History of MRI Right elbow MRI (02/13/22): MAC at [facility]. No issues noted per post-op anesthesia progress note. History of surgery Chiari Malformation repair (~2014; [facility]) Hx of foot surgery R/L repair of plantar fasciitis and removal of heel spurs History of laparoscopy History of tooth extraction Family History Grandmother (Paternal) Family history of diabetes mellitus Family/Other Chiari malformation Venous thrombosis Grandmother Stroke Mother Hypothyroidism Father Mitral valve prolapse Grandmother (Maternal) Breast cancer Denies family history of Ovarian cancer Colorectal cancer Social History Smoking Status: Never smoker Second Hand Exposure: No; Do You Dip or Chew Tobacco: No; Tobacco Cessation Education Requested by Patient: No Hx Alcohol Use: No Hx Substance Use: No Preferred Language: Divehi Communication Ability: Effective Unit Reactor Operator Required: No Beliefs That Will Affect Care: None marital status: Current Living Situation: Family Current Living Situation Comment: lives with the and children current occupational status: employed 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 Physical Exam Constitutional: WD/WN, vitals as above Respiratory: normal respiratory effort, lungs clear to auscultation Cardiovascular: RRR, no murmur, no edema Gastrointestinal (Abdomen): normal bowel sounds, soft, nontender, no hepatosplenomegaly Skin: no rashes, warm and dry Results & Data Vital Signs (Past 12 Hours) Vital Signs Temp Pulse Resp BP BP Pulse Ox O2 Del Method 09/01/24 07:46 36.8 C 71 18 103/68 96 Room Air 09/01/24 03:29 36.6 C 64 16 112/73 96 Room Air 09/01/24 02:48 36.6 C 64 16 112/73 96 Room Air 09/01/24 02:16 Room Air 09/01/24 01:00 74 20 120/68 94 Room Air 08/31/24 23:00 78 20 103/62 95 Room Air Laboratory Results 09/01/24 08/31/24 Range/Units 08:06 18:01 WBC 2.99 L 4.88 (4.8-10.8) K/ul RBC 3.85 L 4.04 L (4.20-5.40) M/uL Hgb 11.9 L 12.6 (12.0-16.0) g/dl Hct 36.3 L 37.3 (37.0-47.0) % MCV 94.3 92.3 (80.0-100.0) fL MCH 30.9 31.2 (25.0-34.0) pg MCHC 32.8 33.8 (32.0-36.0) g/dL RDW Std Deviation 47.5 H 46.5 H (36.4-46.3) fL RDW Coeff of Zuleyma 13.6 13.6 (11.5-14.5) % Plt Count 142 179 (130-400) K/uL MPV 11.1 11.2 (9.4-12.4) fL Immature Gran % (Auto) 0.0 0.2 % Neut % (Auto) 52.5 61.4 % Lymph % (Auto) 38.1 30.7 % Jessamine % (Auto) 6.0 5.3 % Eos % (Auto) 2.7 1.8 % Baso % (Auto) 0.7 0.6 % Neut # (Auto) 1.57 2.99 (1.40-6.50) K/uL Lymph # (Auto) 1.14 L 1.50 (1.20-3.40) K/uL Jessamine # (Auto) 0.18 0.26 (0.11-0.59) K/uL Eos # (Auto) 0.08 0.09 (0.00-0.50) K/uL Baso # (Auto) 0.02 0.03 (0.00-0.20) K/uL Immature Gran # (Auto) 0.00 L 0.01 (0.01-0.20) K/uL Sodium 142 140 (136-145) mmol/L Potassium 3.5 3.4 L (3.5-5.1) mmol/L Chloride 111 H 108 H (98-107) mmol/L Carbon Dioxide 27 26 (21-32) mmol/L Anion Gap 4 6 (3-11) BUN 8 11 (6-23) mg/dl Creatinine 0.80 0.91 (0.6-1.2) mg/dl Est Cr Clr Drug Dosing 88.7 Not Reportable eGFR 94.28 80.78 BUN/Creatinine Ratio 10.0 12.1 (10-20) Glucose 81 99 (70-99(Fasting)) mg/dl Calcium 8.1 L 8.7 (8.6-10.3) mg/dl Magnesium 1.8 (1.7-2.4) mg/dl Total Bilirubin 0.6 0.7 (0.2-1.0) mg/dl AST 55 H 16 (13-39) U/L ALT 34 9 (7-52) U/L Alkaline Phosphatase 73 64 (34-104) U/L Total Protein 5.0 L D 6.0 (6.0-8.3) gm/dl Albumin 3.0 L 3.9 (3.4-5.0) gm/dl Globulin 2.0 L 2.1 L (2.5-4.0) gm/dl Albumin/Globulin Ratio 1.5 1.9 (0.9-2) Lipase 18 (11-82) U/L PG Care Time/CCT Total # of Minutes Spent Total Time Spent with Patient: Total time spent is greater than 50% in coordination of care (as documented) at patient's floor/unit and/or counseling patient: Coding Level of Care Code 97006 IN/OBS CONSULT LVL 4,60M Diagnoses Abdominal pain R10.9 Abdominal location: unspecified location (1) Abdominal pain Abdominal location: unspecified location Qualified Code(s): R10.9 - Unspecified abdominal pain
[2024-09-01 10:49] LABS: Appearance Urine Clear (Clear); Bilirubin Urine Negative (Negative); Blood Urine Negative (Negative); Color Urine Yellow; Glucose Urine UA Negative (Negative); Ketones Urine Negative (Negative); Leukocyte Esterase Urine Negative (Negative); Nitrite Urine Negative (Negative); Protein Urine Negative (Negative); Specific Gravity Urine > 1.045 (1.000-1.030); Urobilinogen Urine Negative (Negative); pH Urine 5.5 (4.5-7.5)
[2024-09-01] MEDS: SUCRALFATE 1 GM/10 ML UDC PO SCH (12:01)
[2024-09-01] MEDS: ONDANSETRON 4 MG OD TAB PO SCH (12:01)
--- NOTE | 2024-09-01 16:42 | Hospitalist Progress Note ---
Date of Service September 01, 2024 Assessment & Plan (1) Adnexal cyst: Plan: 3 cm complex left ovarian cyst noted on imaging - Explains her LLQ abdominal pain but does not explain her intolerance to solid PO intake - Recommend follow-up exam in 6-8 weeks to evaluate for resolution Plan Increase Protonix frequency Started Carafate Scheduled Zofran Advance diet Chronic stable conditions: Anxiety: Continue BuSpar and Lexapro GERD: Continue Nexium 40 mg daily Migraine continue home meds Nutrition: Full liquids advance as tolerated DVT ppx: SCDs CODE STATUS: Full code Admission and Anticipated Discharge Date Admission Date: September 01, 2024 Supervising Physician Co-Signing Physician Notes chart reviewed and case d/w S Gross PAC; as above Subjective Patient seen and evaluated at bedside. She reports that her nausea persists but denies any vomiting today and has been well tolerating her clear liquid diet. She reports that her stabbing pain in her abdominal left lower quadrant has improved with medication. We discussed the recommendations from GI and current treatment plan. No additional complaints or concerns at this time. Physical Exam Physical Exam: General: No acute distress, nondiaphoretic, well-developed, well-nourished. Skin: The skin was without rashes, erythema, edema, or bruising. Cardiac: Regular rate and rhythm without murmurs gallops or rubs. Pulm: Clear to auscultation bilaterally without wheezes, rales or rhonchi. No respiratory distress. 95% on room air. Abdominal: Soft, nondistended. Tender to palpation of LLQ. Bowel sounds present. Neuro: A&O x3. No focal neurological deficits. Results & Data Results & Data Vital Signs (Past 12 Hours) Vital Signs Temp Pulse Resp BP Pulse Ox O2 Del Method 09/01/24 15:25 98.2 F 76 18 93/60 L 95 Room Air 09/01/24 07:46 98.2 F 71 18 103/68 96 Room Air Laboratory Results Reviewed CBC Reviewed chemistries Reviewed UA Diagnostic Findings Reviewed CT A/P Reviewed pelvic ultrasound PG Care Time/CCT Total # of Minutes Spent Total Time Spent with Patient: Total time spent is greater than 50% in coordination of care (as documented) at patient's floor/unit and/or counseling patient: Coding Level of Care Code 08079 SUB INP/OBS CARE 3/50MIN Diagnoses Adnexal cyst N94.9
[2024-09-01] MEDS: TOPIRAMATE 100 MG TAB PO SCH (20:18)
[2024-09-01] MEDS: MELATONIN 3 MG TAB PO PRN (20:20)
--- NOTE | 2024-09-01 21:28 | Electrocardiogram Report ---
Test Reason : Blood Pressure : */* mmHG Vent. Rate : 75 BPM Atrial Rate : 75 BPM P-R Int : 134 ms QRS Dur : 68 ms QT Int : 414 ms P-R-T Axes : 72 70 59 degrees QTcB Int : 462 ms Normal sinus rhythm Nonspecific T wave abnormality When compared with ECG of 12-May-2024 21:02, Criteria for Inferior infarct are no longer Present T wave inversion no longer evident in Inferior leads Nonspecific T wave abnormality, worse in Anterior leads Confirmed by Esau Robin ([id number]) on 09/01/2024 9:27:59 PM Referred By: REFERRED SELF Confirmed By: Esau Robin
[2024-09-02 07:18] LABS: Hematocrit (blood only) 33.2 % (37.0-47.0); Hemoglobin 11.1 g/dl (12.0-16.0); Mean Corpuscular Hemoglobin 31.7 pg (25.0-34.0); Mean Corpuscular Hgb Conc 33.4 g/dL (32.0-36.0); Mean Corpuscular Volume 94.9 fL (80.0-100.0); Mean Platelet Volume 10.9 fL (9.4-12.4); Platelet Count 133 K/uL (130-400); RDW Coefficient of Variation 13.4 % (11.5-14.5); RDW Standard Deviation 46.5 fL (36.4-46.3); White Blood Count 3.62 K/ul (4.8-10.8)
--- NOTE | 2024-09-02 17:02 | Hospitalist Progress Note ---
Date of Service September 02, 2024 Assessment & Plan (1) Adnexal cyst: Plan: 3 cm complex left ovarian cyst noted on imaging - Explains her LLQ abdominal pain but does not explain her intolerance to solid PO intake - Recommend follow-up ultrasound exam in 6-8 weeks to evaluate for resolution -Patient reports this is a new finding (2) Dysphagia: Plan: Patient with gastric sleeve in December 2023. She reports that she has had intolerance of solid food since that point Patient did contact her surgeon at [facility] and it was recommended that she have EGD at [facility] due to location since patient lives in [place] Referral from outside office was sent and at this time [facility] has not received it. She is apparently to have EGD as an outpatient once appointment is coordinated with her surgeon in [place] Nutritional consult was placed this morning. Appreciate their help with supplement recommendations Continue liquid diet to meet calorie and protein requirements until outpatient follow-up with gastroenterology and patient's gastric surgeon in [place] Continue Carafate and PPI Appreciate gastroenterology consult (3) Abdominal pain: Plan: Adnexal cyst identified on CT scan At this time, encourage patient to be out of bed to chair and to ambulate in hallways Will try to avoid IV analgesia Oxycodone 5 mg every 4 hours was ordered Plan Chronic stable conditions: Anxiety: Continue BuSpar and Lexapro GERD: Continue Nexium 40 mg daily Migraine continue home meds Nutrition: Full liquids advance as tolerated DVT ppx: SCDs CODE STATUS: Full code Admission and Anticipated Discharge Date Admission Date: September 01, 2024 Supervising Physician Co-Signing Physician Notes chart reviewed, case discussed with Raysa Conde PA-C. as above Subjective Attending: Dr. Escalante Patient seen and examined at bedside. She continues to have nausea which is poorly controlled with Zofran 4 mg every 6 hours. She also continues to complain of abdominal pain. Exam is nonfocal Patient agrees to try different options for antiemetics. Will increase Zofran to 8 mg every 8 hours and add prochlorperazine to see if we can have better nausea control Patient also agrees to oral analgesia as a trial instead of IV opiates. Patient also agrees to increase ambulation in the hallway as well as out of bed to chair as tolerated Patient has no fever. No vomiting. No diarrhea. She does report that she had a bowel movement this morning that was normal with no evidence of melena or hematochezia. No other acute complaints. Review of Systems 2 Review of Systems: A total of 10 systems was reviewed and is negative other than as listed in the HPI Physical Exam 2 Physical Exam: GENERAL : No acute distress EYES: No icterus, gaze conjugate NOSE: No evidence of epistaxis MOUTH: No lesions or candidiasis NECK: Supple LUNGS: CTA B/L, no wheezes, rales or rhonchi HEART: Regular, rate controlled ABDOMEN: Abdomen is soft. Bowel sounds are hyperactive. No high-pitched tinkling. No guarding or rebound tenderness. EXTREMITIES: No LE edema, pedal pulses intact NEURO: A&OX3 Results & Data Results & Data Vital Signs (Past 12 Hours) Vital Signs Temp Pulse Resp BP Pulse Ox O2 Del Method 09/02/24 15:35 37.2 C 71 15 102/69 96 Room Air 09/02/24 07:22 36.7 C 81 15 107/72 94 Room Air Laboratory Results 09/02/24 06:49 09/01/24 08:06 Diagnostic Findings Abdomen/Pelvis CT 08/31/24 18:14 EXAM: CT abd pelvis IV con only CLINICAL HISTORY: abdominal pain, vomiting, hx gastric sleeve PW/GS/EB TECHNIQUE: Contrast enhanced CT of the abdomen and pelvis was performed, with the following protocol: axial images, and reconstructed coronal and sagittal images. Intravenous contrast (94ml Opti 320) was administered. One of the following dose reduction techniques was utilized for this exam: Automated exposure control, adjustment of the mA and/or kV according to patient size, and use of iterative reconstruction. COMPARISON: CT abd pelvis IV con only dated 12/30/2023 FINDINGS: Abdomen: Liver: Hepatomegaly with diffuse hypodensity suggestive of steatosis measuring 17.5 cm at the largest craniocaudal span in the right lobe No focal lesions, cysts, or masses were identified. Gallbladder and Biliary System: The gallbladder is surgically removed Pancreas: Pancreatic head, body, and tail are visualized and appear normal in size and density. No pancreatic masses or calcifications were noted. Spleen: Mildly enlarged measuring 14.5 cm with no focal lesions Kidneys and Adrenal Glands: Both kidneys are normal in size, shape, and position. Cortical thickness is within normal limits. No renal calculi or hydronephrosis. Adrenal glands are unremarkable. evidence of gastric sleeve operation with no related collections Appendix: No signs of acute appendicitis. Pelvis: Urinary Bladder: Normal in contour and wall thickness. No intraluminal lesions.Uterus: is not visualized likely surgically removed Left-sided simple adnexal cyst measuring 33X32 mm. The right ovary is normally visualized. Mild pelvic free fluid Vagina: Normal in contour and wall thickness. Cervix: No evidence of mass or abnormal thickening. Peritoneal and Retroperitoneal Structures: No free fluid or abnormal fluid collections were identified within the abdomen No lymphadenopathy was noted. Bowel: The visualized bowel loops are normal in caliber and appearance. No evidence of bowel obstruction or wall thickening. Mild wall thickening of the sigmoid colon is likely due to underdistension. Surgical annabelle are seen along the greater curvature of stomach. Bones and Soft Tissues: Pelvic bones and soft tissues are unremarkable. No fractures or abnormal masses were identified. scanned lower chest cuts are unremarkable IMPRESSION: 1. New acute pathology is identified. 2. Left-sided simple adnexal cyst measuring 33X32 mm with mild pelvic free fluid ,US pelvis and follow up is recommend (Newly developed) 3. Hepatomegaly with steatosis (stable) 4. Splenomegaly (stable) Electronically signed by Matthew Lopes 08-31-2024 7:49 PM Pelvis Ultrasound 08/31/24 20:22 Exam(s): US PELVIS EXAM: US Pelvis Transabdominal, Complete CLINICAL HISTORY: Reason for exam: abd pain, cyst on CT. TECHNIQUE: Real-time complete transabdominal pelvic ultrasound with image documentation. COMPARISON: CT scan dated 01/19/2024 FINDINGS: Uterus/cervix: The patient is status post hysterectomy. Right ovary: The right ovary measured 1.8 x 1.3 x 1.1 cm. It demonstrated vascular flow. Left ovary: Left ovary measured 4.1 x 3.9 x 2.2 cm. It demonstrated vascular flow. It contains a complex cyst measuring 3 cm.. Free fluid: There is a small amount of free fluid in the pelvis. IMPRESSION: There is a 3 cm complex left ovarian cyst. There is a small amount of free fluid in the pelvis. A follow-up exam is recommended in 6 to 8 weeks to evaluate for resolution Electronically signed by: Eusebio Riley MD 09/01/24 03:48 AM PG Care Time/CCT Total # of Minutes Spent Total Time Spent with Patient: Total time spent is greater than 50% in coordination of care (as documented) at patient's floor/unit and/or counseling patient: 35 minutes at bedside with patient and Coding Level of Care Code 99735 SUB INP/OBS CARE 2/35MIN Diagnoses Adnexal cyst N94.9 Dysphagia R13.10 Abdominal pain R10.9 Time Spent (min) 35
[2024-09-02] MEDS: ONDANSETRON 8MG OD TAB PO PRN (20:18)
--- NOTE | 2024-09-02 21:48 | Billing Data ---
Date of Service September 02, 2024 Coding Level of Care Code 79362 INT INP/OBS CARE
[2024-09-03] MEDS: oxyCODONE HCL IR 5 MG TAB (IMMEDIATE RELEASE) PO PRN (02:57)
--- NOTE | 2024-09-03 10:25 | Hospitalist Progress Note ---
Date of Service September 03, 2024 Assessment & Plan (1) Adnexal cyst: Plan: 3 cm complex left ovarian cyst noted on imaging - Explains her LLQ abdominal pain but does not explain her intolerance to solid PO intake - Recommend follow-up exam in 6-8 weeks to evaluate for resolution Plan Ordered upper GI series Advanced diet Chronic stable conditions: Anxiety: Continue BuSpar and Lexapro GERD: Continue Nexium 40 mg daily Migraine continue home meds Nutrition: Full liquids advance as tolerated DVT ppx: SCDs CODE STATUS: Full code Admission and Anticipated Discharge Date Admission Date: September 01, 2024 Supervising Physician Co-Signing Physician Notes Chart reviewed, case discussed with Diego Santoyo PA-C. As above Subjective Patient seen and evaluated at bedside. She reports lower abdominal tenderness. She notes that her nausea has improved, but continues to persist. She denies recent vomiting. She would like to advance her diet. She reports the nausea and abdominal pain seem to worsen after eating. We discussed getting an upper GI series, advancing her diet, and encouraged to ambulate the halls and get out of bed throughout the day. No additional complaints or concerns at this time. Physical Exam Physical Exam: General: No acute distress, nondiaphoretic, well-developed, well-nourished. Skin: The skin was without rashes, erythema, edema, or bruising. Cardiac: Regular rate and rhythm without murmurs gallops or rubs. Pulm: Clear to auscultation bilaterally without wheezes, rales or rhonchi. No respiratory distress. 98% on room air. Abdominal: Soft, nondistended, minimal tenderness to palpation of lower quadrants. Bowel sounds present. Neuro: A&O x3. No focal neurological deficits. Results & Data Results & Data Vital Signs (Past 12 Hours) Vital Signs Temp Pulse Resp BP Pulse Ox O2 Del Method 09/03/24 07:24 97.9 F 72 15 104/69 95 Room Air PG Care Time/CCT Total # of Minutes Spent Total Time Spent with Patient: Total time spent is greater than 50% in coordination of care (as documented) at patient's floor/unit and/or counseling patient: Coding Level of Care Code 65515 SUB INP/OBS CARE 3/50MIN Diagnoses Adnexal cyst N94.9
[2024-09-03] MEDS: SODIUM CHLORIDE 0.9% 500 ML IV ONE (20:35)
[2024-09-04 08:01] VITALS: RESP 18; O2SAT 98
--- NOTE | 2024-09-04 08:32 | Hospitalist Progress Note ---
Date of Service September 04, 2024 Assessment & Plan (1) Abdominal pain: Plan: Presented with persistent nausea with vomiting x 1 week and LLQ abdominal pain x 1 day - History of gastric sleeve that was placed back in December at [facility] in [place] - Inability to advance diet past liquids - Recent EGD at [facility] consistent with GERD - Pelvic US showed 3 cm complex left ovarian cyst with small amount of free fluid in the pelvis - CT A/P noted stable hepatomegaly and splenomegaly and ovarian cyst as described above - GI consulted - Nutrition consulted - Boost TIDM, follow-up with [facility] RD on discharge - Protonix increased to 40 mg BID - Continue trial of liquid Carafate QID x 14 days (last day 09/14/24) - Zofran 8 mg Q8H PRN, Compazine 5 mg Q6H PRN - Advanced diet to low fiber minced and moist, continue Boost TIDM to ensure adequate protein intake - Encourage patient to be out of bed to chair and to ambulate in hallways - Avoid IV analgesia -- continue oxycodone 5 mg Q4H PRN - Ordered upper GI series to evaluate and rule out a mechanical problem (stricture, peptic ulcer) (2) Adnexal cyst: Plan: 3 cm complex left ovarian cyst noted on imaging - Explains her LLQ abdominal pain but does not explain her intolerance to solid PO intake - Recommend follow-up exam in 6-8 weeks to evaluate for resolution Plan Ordered upper GI series Advanced diet Chronic stable conditions: Anxiety: Continue BuSpar and Lexapro GERD: Continue Nexium 40 mg daily Migraine continue home meds Nutrition: Full liquids advance as tolerated DVT ppx: SCDs CODE STATUS: Full code Admission and Anticipated Discharge Date Admission Date: September 01, 2024 Physical Exam Physical Exam: General: No acute distress, nondiaphoretic, well-developed, well-nourished. Skin: The skin was without rashes, erythema, edema, or bruising. Cardiac: Regular rate and rhythm without murmurs gallops or rubs. Pulm: Clear to auscultation bilaterally without wheezes, rales or rhonchi. No respiratory distress. 98% on room air. Abdominal: Soft, nondistended, minimal tenderness to palpation of lower quadrants. Bowel sounds present. Neuro: A&O x3. No focal neurological deficits. Results & Data Results & Data Vital Signs (Past 12 Hours) Vital Signs Temp Pulse Resp BP Pulse Ox O2 Del Method 09/04/24 08:00 98.1 F 75 18 94/0 L 98 Room Air 09/03/24 21:40 61 16 103/70 97 Room Air PG Care Time/CCT Total # of Minutes Spent Total Time Spent with Patient: Total time spent is greater than 50% in coordination of care (as documented) at patient's floor/unit and/or counseling patient: Coding Diagnoses Lower abdominal pain R10.30 Abdominal location: lower abdomen, unspecified Adnexal cyst N94.9 (1) Abdominal pain Abdominal location: lower abdomen, unspecified Qualified Code(s): R10.30 - Lower abdominal pain, unspecified
[2024-09-04] MEDS: PROCHLORPERAZINE MALEATE 5 MG TAB PO PRN (12:13)
[2024-09-04] MEDS: ACETAMINOPHEN 325 MG TAB PO PRN (14:50)
--- NOTE | 2024-09-04 15:22 | Fluoroscopy Report ---
FL upper GI series wo air CLINICAL HISTORY: R/o mechanical problem TECHNIQUE: Glassware Finisher images were obtained. Upper GI Study was performed using standard technique. Comparison: Comparison is made to CT abdomen pelvis 08/31/2024 FINDINGS: Barium flowed freely through the distal esophagus. There was no evidence of filling defects, strictu res, or ulcers. Expected postsurgical appearance status post gastric sleeve with satisfactory passage of contrast. Gastroesophageal reflux is seen. Barium was then noted to pass into the gastric fundus, body, antrum, and pylorus under fluoroscopic v isualization. No mass, ulcer, or thickened gastric folds were noted. Barium passed into the proximal small bowel freely. No duodenal mass or ulcer was identified. Fluoroscopy time: 1.04 minutes Ka,r: 24.3 mGy Fluoroscopy images: 12 IMPRESSION: Normal passage of contrast is seen. There is a small amount of reflux. Postsurgical changes of gastri c sleeve are noted. ACT 112: Negative or not required by law. Electronically signed by: Luca Jon M.D. 09/04/2024 3:21 PM
[2024-09-04 15:29] VITALS: BP 98/65; PULSE 78; TEMP 98.4
--- NOTE | 2024-09-04 15:57 | Discharge Summary ---
Discharge Summary Date of Service September 04, 2024 Principal Dx & Hospital Course #1 = Principal Diagnosis (1) Abdominal pain: Presented with persistent nausea with vomiting x 1 week and LLQ abdominal pain x 1 day - History of gastric sleeve that was placed back in December at [facility] in [place] - Inability to advance diet past liquids since then - Patient reports recent EGD at [facility] consistent with GERD - Pelvic US showed 3 cm complex left ovarian cyst with small amount of free fluid in the pelvis - CT A/P noted stable hepatomegaly and splenomegaly and ovarian cyst as described below - GI consulted - Nutrition consulted - Boost TIDM, follow-up with [facility] RD on discharge - PPI increased to 40 mg BID - Continue trial of liquid Carafate QID x 14 days (last day 09/14/24) - Zofran 8 mg Q8H PRN, Compazine 5 mg Q6H PRN - Continue full liquid diet and advance as tolerated. Prioritize protein with Boost TIDM - Upper GI series showed normal passage of contrast and small amount of reflux - Recommend close follow-up with surgical team at [facility] (2) Adnexal cyst: 3 cm complex left ovarian cyst noted on imaging - Explains her LLQ abdominal pain but does not explain her intolerance to solid PO intake - Recommend follow-up exam in 6-8 weeks to evaluate for resolution; defer to PCP Plan Chronic stable conditions: Anxiety: Continue BuSpar and Lexapro GERD: Continue Nexium 40 mg daily Migraine continue home meds Nutrition: Full liquids advance as tolerated DVT ppx: SCDs CODE STATUS: Full code Notes For Next Care Provider Persistent nausea and generalized abdominal pain with a negative GI workup Recommend following up with surgical team at [facility] Incidentally identified 3 cm complex left ovarian cyst. Recommend follow-up exam in 6-8 weeks to ensure resolution Medication Changes From Visit Increased PPI to twice daily dosing Liquid Carafate x 14-days Admission HPI Per Admitting Provider Patient is a 43-year-old female with past medical history of gastric sleeve back in December, GERD, migraine, anxiety, depression who presents to the hospital with abdominal pain. Patient states that over the last week she has not been able to tolerate any food. She states that every time she eats about 15 minutes later she has vomiting. She has also been having severe nausea. She is able to tolerate liquids though is unable to tolerate any solid foods. States that she has no issues with swallowing or pain with swallowing. Patient then started to have sharp abdominal pain today right below her bellybutton. States that she did not have this abdominal pain over the last week. Pain started today suddenly. Of note patient has lost about 100 pounds while being on the gastric sleeve. She states that she follows with [facility] surgery in [place] regarding her gastric sleeve. States that she has recently seen the surgeon regarding her issues with unable to tolerate any food and he ordered a upper GI that has not been completed yet. Patient denies any fevers, chills, cough, shortness of breath, chest pain, diarrhea, or constipation. Bowel movements have been normal. No urinary symptoms. Discharge Exam General: No acute distress, nondiaphoretic, well-developed, well-nourished. Skin: The skin was without rashes, erythema, edema, or bruising. Cardiac: Regular rate and rhythm without murmurs gallops or rubs. Pulm: Clear to auscultation bilaterally without wheezes, rales or rhonchi. No respiratory distress. 98% on room air. Abdominal: Soft, nondistended, minimal tenderness to palpation of lower jaya drants. Bowel sounds present. Neuro: A&O x3. No focal neurological deficits. Discharge Plan Discharge Items Patient Disposition: Home - Self-Care Reason For Visit: AB PAIN,UNABLE TO TOLERATE FOOD Discharge Diagnosis: Abdominal pain, nausea Activity: Resume your previous activity Non-emergency contact: Primary Care Provider and Surgeon Call non-emergency contact if: you have any medication questions, your symptoms worsen and your pain is not controlled Follow-up/Referrals: Silvana Mcgarry CRNP [Primary Care Provider] - (Follow-up in 1-2 weeks) Diet: Full liquid Diet Comment: Advance as tolerated Addtl Attending Provider Instructions: Crystal, You were admitted to the hospital due to persistent abdominal pain and inability to tolerate solid oral intake. You had an extensive workup while hospitalized and were evaluated by the GI team. The CT scan of your abdomen and pelvis incidentally noted an ovarian cyst but nothing else acute to explain your ongoing symptoms. The upper GI series showed normal passage through the GI tract with a small amount of reflux. All of this to be said, there is no acute explanation for your persistent symptoms. We will continue to manage your symptoms with medication and recommend you follow-up with your surgical team in [place]. Upon discharge from the hospital: * Your PPI (Nexium) was increased to 40 mg twice daily * Continue the trial of liquid Carafate 4 times daily until 09/14/2024 * Use Zofran 8 mg every 8 hours as needed for nausea * Use Compazine 5 mg every 6 hours as needed for nausea * Use Tylenol or ibuprofen as needed for pain. It is not recommended to use continued narcotic pain medication for functional abdominal pain * Follow a full liquid diet and advance as tolerated. Prioritize protein i.e. Boost drinks with meals * Follow-up with your PCP in 1-2 weeks. Recommend repeat imaging in 6-8 weeks to ensure resolution of your ovarian cyst * Recommend close follow-up with your surgical team at [facility] for further workup Happy Holidays! It was a pleasure taking care of you while you were in the hospital, Sharee Santoyo PA-C Pending Studies at Discharge: No Stand-Alone Forms: My [facility] [employer], Smoking Cessation Medications and DC Order Prescriptions: New sucralfate 100 mg/mL Suspension 1 g PO QID Qty: 420 0RF prochlorperazine maleate 5 mg Tablet 5 mg PO Q6H PRN (Reason: nausea and vomiting) Qty: 30 0RF ondansetron 8 mg Tablet,Disintegrating 8 mg PO Q8H PRN (Reason: nausea and vomiting) Qty: 30 0RF Continued escitalopram oxalate [Lexapro] 20 mg tablet 20 mg PO QAM 90 Days Qty: 90 4RF cyclobenzaprine 10 mg tablet 10 mg PO BID PRN (Reason: muscle spasm) Qty: 30 0RF Nurtec ODT 75 mg tablet,disintegrating 75 mg PO ONCE PRN (Reason: migraine headache) Qty: 8 6RF buspirone 15 mg tablet 15 mg PO BID cyanocobalamin (vitamin B-12) 1,000 mcg Capsule 1,000 mcg PO QAM cholecalciferol (vitamin D3) [Vitamin D3] 50 mcg (2,000 unit) Capsule 50 mcg PO QAM zolmitriptan [Zomig] 2.5 mg tablet 2.5 mg PO .COMPLEX PRN (Reason: migraine headache) Rx Instructions: 2.5 mg orally Take at the onset of a migraine, may repeat in 2 hours if needed, do not exceed 2-3 days a week PRN; topiramate [Topamax] 100 mg tablet 100 mg PO QPM Aimovig Autoinjector 140 mg/mL auto-injector 140 mg subcut MONTHLY Changed esomeprazole magnesium [Nexium] 40 mg capsule,delayed release(DR/EC) 40 mg PO BID Qty: 60 0RF Discharge Orders: Discharge Order (Routine); Ordered 09/04/24 Ordered By: Sharee Santoyo Admission Data Admit Date/Time: 09/01/24 01:07 Attending Provider: Erwin Villanueva Admit Provider: Alex Friedman Primary Care Provider: Silvana Mcgarry Other Providers: Nba Hood; Sharif Enamorado; Miranda Hernandez; Lorelei Mathew; Eva Magallanes; Sonya Garza; Tiffanie Ibanez; Evert Aggarwal; Adam Clark; Cheryle Mohr; Nu Suggs; Polly Navarro; Corry Fitch; Majo Teixeira; Fabi Aguilera; Pradeep Sena; Simone Gallardo; Ida Thurman; Noelle Alberto Jr; Robert Winn.; Tab Sinclair; Dwayne Guzman; Jamel Parker; Selin Westbrook; Juan Rivera I; Rosa Isela Sotomayor; Mil Cassidy; [facility] Stay Data Consultations 09/01/24 01:26 ED Decision to Admit Stat 09/01/24 02:48 Consult Gastroenterology Routine Diagnostic Imagining Performed Abdomen/Pelvis CT 08/31/24 18:14 EXAM: CT abd pelvis IV con only CLINICAL HISTORY: abdominal pain, vomiting, hx gastric sleeve PW/GS/EB TECHNIQUE: Contrast enhanced CT of the abdomen and pelvis was performed, with the following protocol: axial images, and reconstructed coronal and sagittal images. Intravenous contrast (94ml Opti 320) was administered. One of the following dose reduction techniques was utilized for this exam: Automated exposure control, adjustment of the mA and/or kV according to patient size, and use of iterative reconstruction. COMPARISON: CT abd pelvis IV con only dated 12/30/2023 FINDINGS: Abdomen: Liver: Hepatomegaly with diffuse hypodensity suggestive of steatosis measuring 17.5 cm at the largest craniocaudal span in the right lobe No focal lesions, cysts, or masses were identified. Gallbladder and Biliary System: The gallbladder is surgically removed Pancreas: Pancreatic head, body, and tail are visualized and appear normal in size and density. No pancreatic masses or calcifications were noted. Spleen: Mildly enlarged measuring 14.5 cm with no focal lesions Kidneys and Adrenal Glands: Both kidneys are normal in size, shape, and position. Cortical thickness is within normal limits. No renal calculi or hydronephrosis. Adrenal glands are unremarkable. evidence of gastric sleeve operation with no related collections Appendix: No signs of acute appendicitis. Pelvis: Urinary Bladder: Normal in contour and wall thickness. No intraluminal lesions.Uterus: is not visualized likely surgically removed Left-sided simple adnexal cyst measuring 33X32 mm. The right ovary is normally visualized. Mild pelvic free fluid Vagina: Normal in contour and wall thickness. Cervix: No evidence of mass or abnormal thickening. Peritoneal and Retroperitoneal Structures: No free fluid or abnormal fluid collections were identified within the abdomen No lymphadenopathy was noted. Bowel: The visualized bowel loops are normal in caliber and appearance. No evidence of bowel obstruction or wall thickening. Mild wall thickening of the sigmoid colon is likely due to underdistension. Surgical annabelle are seen along the greater curvature of stomach. Bones and Soft Tissues: Pelvic bones and soft tissues are unremarkable. No fractures or abnormal masses were identified. scanned lower chest cuts are unremarkable IMPRESSION: 1. New acute pathology is identified. 2. Left-sided simple adnexal cyst measuring 33X32 mm with mild pelvic free fluid ,US pelvis and follow up is recommend (Newly developed) 3. Hepatomegaly with steatosis (stable) 4. Splenomegaly (stable) Electronically signed by Matthew Lopes 08-31-2024 7:49 PM Pelvis Ultrasound 08/31/24 20:22 Exam(s): US PELVIS EXAM: US Pelvis Transabdominal, Complete CLINICAL HISTORY: Reason for exam: abd pain, cyst on CT. TECHNIQUE: Real-time complete transabdominal pelvic ultrasound with image documentation. COMPARISON: CT scan dated 01/19/2024 FINDINGS: Uterus/cervix: The patient is status post hysterectomy. Right ovary: The right ovary measured 1.8 x 1.3 x 1.1 cm. It demonstrated vascular flow. Left ovary: Left ovary measured 4.1 x 3.9 x 2.2 cm. It demonstrated vascular flow. It contains a complex cyst measuring 3 cm.. Free fluid: There is a small amount of free fluid in the pelvis. IMPRESSION: There is a 3 cm complex left ovarian cyst. There is a small amount of free fluid in the pelvis. A follow-up exam is recommended in 6 to 8 weeks to evaluate for resolution Electronically signed by: Eusebio Riley MD 09/01/24 03:48 AM Upper GI Series 09/04/24 12:28 FL upper GI series wo air CLINICAL HISTORY: R/o mechanical problem TECHNIQUE: Car Parker images were obtained. Upper GI Study was performed using standard technique. Comparison: Comparison is made to CT abdomen pelvis 08/31/2024 FINDINGS: Barium flowed freely through the distal esophagus. There was no evidence of filling defects, strictures, or ulcers. Expected postsurgical appearance status post gastric sleeve with satisfactory passage of contrast. Gastroesophageal reflux is seen. Barium was then noted to pass into the gastric fundus, body, antrum, and pylorus under fluoroscopic visualization. No mass, ulcer, or thickened gastric folds were noted. Barium passed into the proximal small bowel freely. No duodenal mass or ulcer was identified. Fluoroscopy time: 1.04 minutes Ka,r: 24.3 mGy Fluoroscopy images: 12 IMPRESSION: Normal passage of contrast is seen. There is a small amount of reflux. Postsurgical changes of gastric sleeve are noted. ACT 112: Negative or not required by law. Electronically signed by: Luca Jon M.D. 09/04/2024 3:21 PM Pending Results Patient Have Any Pending Studies at Discharge: No Discharge Instructions Given to Patient (Per Discharging Provider) Crystal, You were admitted to the hospital due to persistent abdominal pain and inability to tolerate solid oral intake. You had an extensive workup while hospitalized and were evaluated by the GI team. The CT scan of your abdomen and pelvis incidentally noted an ovarian cyst but nothing else acute to explain your ongoing symptoms. The upper GI series showed normal passage through the GI tract with a small amount of reflux. All of this to be said, there is no acute explanation for your persistent symptoms. We will continue to manage your symptoms with medication and recommend you follow-up with your surgical team in [place]. Upon discharge from the hospital: * Your PPI (Nexium) was increased to 40 mg twice daily * Continue the trial of liquid Carafate 4 times daily until 09/14/2024 * Use Zofran 8 mg every 8 hours as needed for nausea * Use Compazine 5 mg every 6 hours as needed for nausea * Use Tylenol or ibuprofen as needed for pain. It is not recommended to use continued narcotic pain medication for functional abdominal pain * Follow a full liquid diet and advance as tolerated. Prioritize protein i.e. Boost drinks with meals * Follow-up with your PCP in 1-2 weeks. Recommend repeat imaging in 6-8 weeks to ensure resolution of your ovarian cyst * Recommend close follow-up with your surgical team at [facility] for further workup Happy Holidays! It was a pleasure taking care of you while you were in the hospital, Sharee Santoyo PA-C Total Time Total Time Spent Total Time Spent (In Minutes): Greater than 30 minutes spent completing this discharge process including direct patient care, medication reconciliation, documentation, review of labs and images, and coordination of care. Coding Level of Care Code 36953 INP/OBS DISCH >30 MIN Diagnoses Lower abdominal pain R10.30 Abdominal location: lower abdomen, unspecified Adnexal cyst N94.9
== END 2024-09-04 16:18 | disposition home or self-care (01) | DRG 392 ==
LOC: ED 17:35 → SUATTDRO 09-01 01:07 → 3N 09-01 01:07 → INTOOBSV 09-01 01:07 → 3N 09-01 02:16

== ENCOUNTER 2024-10-06 18:08 | Inpatient (IN) ==
[2024-10-06 18:47] LABS: Hematocrit (blood only) 39.8 % (37.0-47.0); White Blood Count 5.27 K/ul (4.8-10.8)
[2024-10-06 19:03] LABS: Alanine Aminotransferase 10 U/L (7-52); Albumin Level 4.6 gm/dl (3.4-5.0); Alkaline Phosphatase 73 U/L (34-104); Anion Gap 8 (3-11); Aspartate Aminotransferase 13 U/L (13-39); BUN Creatinine Ratio 16.1 (10-20); Blood Urea Nitrogen 14 mg/dl (6-23); Calcium 9.2 mg/dl (8.6-10.3); Carbon Dioxide 24 mmol/L (21-32); Chloride 107 mmol/L (98-107); Globulin 2.3 gm/dl (2.5-4.0); Glucose 88 mg/dl (70-99(Fasting)); Potassium 3.6 mmol/L (3.5-5.1); Sodium 139 mmol/L (136-145); Total Protein 6.9 gm/dl (6.0-8.3)
--- NOTE | 2024-10-06 19:08 | XRay Report ---
EXAM: Radiograph of the Chest 1 View INDICATION: Chest pain. TECHNIQUE: Frontal view of the chest. COMPARISON: 09/29/2023 FINDINGS: Lungs and pleural spaces: No consolidation or pulmonary edema. No pleural effusion or pneumothorax. Heart: Shape and configuration within normal limits allowing for technique. Mediastinum: Normal contour. Bones/joints: No fracture, erosion or dislocation. Soft tissues: No abnormality noted. No radiopaque foreign body noted. Upper abdomen: No abnormality noted. IMPRESSION: No abnormality noted. ACT 112: Negative or not required by law. Electronically signed by Suki Hudson 10-06-2024 7:07 PM
[2024-10-06 19:09] LABS: Troponin I High Sensitivity 3.2 pg/ml (0-14)
[2024-10-06 19:12] LABS: INR 1.2 (0.9-1.1); Partial Thromboplastin Ratio 1.2; Partial Thromboplastin Time 32 Seconds (21-31); Prothrombin Time 12.8 Seconds (9.0-12.0)
--- NOTE | 2024-10-06 19:24 | Emergency Department Note ---
Impression & Plan Syncope, Abdominal pain, Head injury ED Provider Note NAME: FAMILIA YUSUF AGE: 43 SEX: F : 1980 ARRIVES VIA: Walk-In INFORMANT: Patient, the patient's significant other ED PROVIDER(S): Mo Curran DO CHIEF COMPLAINT: Syncope HPI: The patient is a 43-year-old female who presented to the emergency department with her significant other. The patient may have had a syncopal episode. It sounds that she may have fallen backwards from a standing position but she does not remember exactly what happened. The patient denies having any nausea at this time. She has had no vomiting but she has noticed some abdominal pain. This is not necessarily new for her. She has been having some abdominal pain recently. She does have a history of gastric sleeve procedure. The patient admits to having any headache at this time. She was able to ambulate. ROS: See above HPI for pertinent positives & negatives. A total of 10 systems reviewed and were otherwise negative. PAST MEDICAL HISTORY: See Below PAST SURGICAL HISTORY: See Below FAMILY HISTORY: See Below SOCIAL HISTORY: See Below HOME MEDICATIONS: See Below ALLERGIES: See Below VITALS: See Below PHYSICAL EXAMINATION: GENERAL: The patient is awake and alert. The patient is comfortable appearing. EYES: The conjunctivae are clear. The pupils are round and reactive. EARS, NOSE, MOUTH AND THROAT: The nose is without any evidence of any deformity. Mucous membranes are moist. NECK: The neck is nontender and supple. RESPIRATORY: Normal respiratory effort is noted there is no evidence of wheezing rhonchi or rales CARDIOVASCULAR: Regular rate and rhythm noted there no murmurs rubs or gallops normal S1 normal S2. GASTROINTESTINAL: The abdomen was soft. There was diffuse tenderness to palpation. BACK: No specific midline tenderness was noted. MUSCULOSKELETAL/EXTREMITIES: There is no evidence of gross deformity full range of motion is noted in the hips and shoulders. SKIN: There is no obvious evidence of any rash. There are no petechiae, pallor or cyanosis noted. NEUROLOGIC: Patient is awake alert and oriented x3 strength is symmetric patellar reflexes are 2+ bilaterally MEDICAL DECISION MAKING: The patient is a 43-year-old female who presented to the emergency department for an evaluation. The patient was on the floor. The patient thinks that she may have had a syncopal episode. The patient has had similar episodes in the past. The patient did complain of headache and at times abdominal pain. The patient has a history of surgical intervention on her abdomen. For this reason further laboratory and radiographic studies were obtained. The patient was treated with medication in the emergency department. We discussed patient's laboratory and radiographic studies with her. Ultimately she was not feeling much better and was requesting evaluation by the hospitalist. The case was discussed with the on-call [facility] hospitalist. They have agreed to evaluate the patient in the emergency department for further management and disposition. Triage Nursing notes reviewed. Prior medical records reviewed Vital Signs: reviewed and remarkable for no significant abnormalities Differential diagnosis: Vasovagal event, dehydration, infection, hypoglycemia, electrolyte abnormalities, cardiac sources, intracerebral event, pulmonary embolism, seizure, toxicologic, neurologic, as well as other pathologies. ER treatment provided: See below Diagnostics interpreted by me: ECG: EKG was obtained in the emergency department. My interpretation is normal sinus rhythm at 76 bpm. Early transition was noted. There was no acute ST segment abnormalities noted. This was compared to a tracing from August 31, 2024. No changes were noted. Cardiac Monitoring: An order was placed for continuous cardiac monitoring. The monitor shows a rate of 93 bpm with sinus rhythm. Laboratory studies: As stated above and show below. Imaging studies: See below. Radiographic imaging was reviewed by myself Consultation(s): Dr. Reyes was notified about the patient. She is on for the [facility] hospitalist group. Past Med/Surg History Problem List (Updated 10/06/24 @ 21:30 by Mo Curran DO) Head injury (Acute) Abdominal pain (Acute) Syncope (Acute) Cervical radiculopathy Abdominal pain Adnexal cyst Paresthesia of left upper extremity Neck stiffness Neck pain Intermittent palpitations Allergic rhinitis due to pollen Snoring Hypersomnia CASSI III (cervical intraepithelial neoplasia III) History of claustrophobia Plantar fasciitis Mixed hyperlipidemia Binge eating disorder Metabolic syndrome Carpal tunnel syndrome, right Morbid obesity Strain of right biceps tendon Migraine without aura, not intractable, without status migrainosus Anxiety Eustachian tube dysfunction Bipolar I disorder, single manic episode (Acute) Mitral valve prolapse syndrome (Acute) Vitamin B12 deficiency (Acute) Vitamin D deficiency (Acute) GERD (gastroesophageal reflux disease) Depression Degenerative disc disease Medical History Hypertriglyceridemia Chiari malformation s/p decompression (~2014) No issues since per 05/12/[address] "There has been prior posterior suboccipital decompression. There is persistent caudal positioning of the cerebellar tonsils consistent with Chiari I malformation. 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 no supervisor carding no issues with MV on 12/2022 ECHO Hx of Lyme disease 2014 - antibiotic completed Hx of ectopic Anxiety and depression Morbid obesity Pre-diabetes s/p gastric sleeve procedure - no longer an issue GERD (gastroesophageal reflux disease) controlled, stable per pt Post traumatic stress disorder Deep vein thrombosis Around 2006 (LUE- unknown etiology) Headache h/o post spinal tap PAUL and generalized weakness in 2018 per 09/2020 [facility] neuro note Surgical History Hx laparoscopic cholecystectomy Status post sleeve gastrectomy 12/22/23 @ [facility] Myriam Villanueva Hx of hysterectomy History of carpal tunnel release Right History of MRI Right elbow MRI (02/13/22): MAC at [facility]. No issues noted per post-op anesthesia progress note. History of surgery Chiari Malformation repair (~2014; [facility]) Hx of foot surgery R/L repair of plantar fasciitis and removal of heel spurs History of laparoscopy History of tooth extraction Family History Grandmother (Paternal) Family history of diabetes mellitus Family/Other Chiari malformation Venous thrombosis Grandmother Stroke Mother Hypothyroidism Father Mitral valve prolapse Grandmother (Maternal) Breast cancer Denies family history of Ovarian cancer Colorectal cancer Social History Smoking Status: Never smoker Second Hand Exposure: No; Do You Dip or Chew Tobacco: No; Hx Alcohol Use: No Hx Substance Use: No Preferred Language: Romanian Communication Ability: Effective Donor Specialist Required: No Beliefs That Will Affect Care: None marital status: Current Living Situation: Family Current Living Situation Comment: lives with the and children current occupational status: employed 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 Feels Safe at Home: Yes Diet: low carbohydrate and other Diet Comment: high protein Physical Activity Frequency: 5-6 Times per Week Assistive Devices: None Allergies Allergies Allergy/AdvReac Type Severity Reaction Status Date / Time Fish Containing Products Allergy Intermediate Rash Verified 10/06/24 20:37 shellfish derived Allergy Verified 10/06/24 20:37 Home Meds Home Medications Medication Instructions Recorded Confirmed cyanocobalamin (vitamin B-12) 1,000 mcg PO QAM 05/24/18 10/06/24 1,000 mcg capsule cholecalciferol (vitamin D3) 50 50 mcg PO QAM 02/11/22 10/06/24 mcg (2,000 unit) capsule (Vitamin D3) buspirone 15 mg tablet 15 mg PO BID 07/15/22 10/06/24 erenumab-aooe 140 mg/mL 140 mg subcut MONTHLY 08/28/24 10/06/24 subcutaneous auto-injector (Aimovig Autoinjector) topiramate 100 mg tablet (Topamax) 100 mg PO QPM 08/28/24 10/06/24 pantoprazole 40 mg tablet,delayed 40 mg PO BID 10/06/24 10/06/24 release Previous Rx's Medication Instructions Recorded escitalopram oxalate 20 mg tablet 20 mg PO QAM 90 days #90 tabs 03/28/24 (Lexapro) esomeprazole magnesium 40 mg 40 mg PO BID #60 caps 09/04/24 capsule,delayed release (Nexium) ondansetron 8 mg disintegrating 8 mg PO Q8H PRN nausea and 09/04/24 tablet vomiting #30 tabs prochlorperazine maleate 5 mg 5 mg PO Q6H PRN nausea and 09/04/24 tablet vomiting #30 tabs sucralfate 100 mg/mL oral 1 g (10 mL) PO QID #420 mL 09/04/24 suspension Results & Data (ED) Vital Signs Vital Signs - 24 hr 10/06/24 18:13 Temperature 36.6 C Temperature Source Temporal Artery Scan Pulse Rate 93 H Respiratory Rate 18 Respiratory Effort / Characteristics Non-Labored Spontaneous Respiratory Depth Normal Blood Pressure 114/75 Blood Pressure Mean 88 Pulse Oximetry 99 Oxygen Delivery Method Room Air Sepsis Recent Fever Within 48 Hours No Sepsis New/Unexplained Change in Mental Status No Sepsis Action Taken by Nursing No Action Required Home Medications Current Medication List: was personally reviewed by me Laboratory Data Attestation: I reviewed the patient's lab results. 10/06/24 18:30 10/06/24 18:30 Lab Results 10/06/24 10/06/24 Range/Units 18:19 18:30 WBC 5.27 (4.8-10.8) K/ul RBC 4.50 (4.20-5.40) M/uL Hgb 14.0 (12.0-16.0) g/dl Hct 39.8 (37.0-47.0) % MCV 88.4 (80.0-100.0) fL MCH 31.1 (25.0-34.0) pg MCHC 35.2 (32.0-36.0) g/dL RDW Std Deviation 40.0 (36.4-46.3) fL RDW Coeff of Zuleyma 12.4 (11.5-14.5) % Plt Count 186 (130-400) K/uL MPV 11.2 (9.4-12.4) fL Immature Gran % (Auto) 0.2 % Neut % (Auto) 59.8 % Lymph % (Auto) 33.4 % Quay % (Auto) 4.9 % Eos % (Auto) 1.1 % Baso % (Auto) 0.6 % Neut # (Auto) 3.15 (1.40-6.50) K/uL Lymph # (Auto) 1.76 (1.20-3.40) K/uL Quay # (Auto) 0.26 (0.11-0.59) K/uL Eos # (Auto) 0.06 (0.00-0.50) K/uL Baso # (Auto) 0.03 (0.00-0.20) K/uL Immature Gran # (Auto) 0.01 (0.01-0.20) K/uL PT 12.8 H (9.0-12.0) Seconds INR 1.2 H (0.9-1.1) APTT 32 H (21-31) Seconds PTT Ratio 1.2 Sodium 139 (136-145) mmol/L Potassium 3.6 (3.5-5.1) mmol/L Chloride 107 (98-107) mmol/L Carbon Dioxide 24 (21-32) mmol/L Anion Gap 8 (3-11) BUN 14 (6-23) mg/dl Creatinine 0.87 (0.6-1.2) mg/dl Est Cr Clr Drug Dosing Not Reportable eGFR 85.26 BUN/Creatinine Ratio 16.1 (10-20) Glucose 88 (70-99(Fasting)) mg/dl POC Glucose 79 (70-99) mg/dl Calcium 9.2 (8.6-10.3) mg/dl Total Bilirubin 1.0 (0.2-1.0) mg/dl AST 13 (13-39) U/L ALT 10 (7-52) U/L Alkaline Phosphatase 73 (34-104) U/L Troponin I High Sens 3.2 (0-14) pg/ml Total Protein 6.9 (6.0-8.3) gm/dl Albumin 4.6 (3.4-5.0) gm/dl Globulin 2.3 L (2.5-4.0) gm/dl Albumin/Globulin Ratio 2.0 (0.9-2) Vitamin B12 544 (180-914) pg/ml 25-OH Vitamin D Total 77.2 (30-100) ng/ml Folate 2.88 L (>5.38) ng/ml Administered Medications Discontinued Medications Sodium Chloride (Nss) 1,000 mls @ 999 mls/hr IV .Q1H1M ONE Stop: 10/06/24 20:23 Last Infusion: 10/06/24 21:07 Dose: Infused Documented By: Admin: 10/06/24 19:30 Dose: 999 mls/hr Documented By: Ioversol (Optiray 320 100ml) 90 ml IV ONCE ONE Stop: 10/06/24 19:46 Last Admin: 10/06/24 19:46 Dose: 90 ml Documented By: NADIA Morphine Sulfate (Morphine Sulfate 4 Mg/Ml 1 Ml Carp\\Vial) 4 mg IV NOW STA Stop: 10/06/24 19:55 Last Admin: 10/06/24 20:10 Dose: 4 mg Documented By: Ondansetron HCl (Ondansetron Inj 2 Mg/Ml 2 Ml Vial) 4 mg IV NOW STA Stop: 10/06/24 19:55 Last Admin: 10/06/24 20:10 Dose: 4 mg Documented By: Imaging Data Attestation: I personally reviewed and interpreted this imaging study as follows: My Impression: 1 view chest x-ray was obtained in the emergency department. My interpretation is no free air or definite infiltrate, final report below. CT the brain was obtained in the emergency department. My interpretation is no intracranial hemorrhage or mass effect, final report below. CT of the abdomen and pelvis was obtained in the emergency department. My interpretation is no free air or signs of bowel obstruction, final report below. Radiologist's Impression: Chest X-Ray 10/06/24 18:18 EXAM: Radiograph of the Chest 1 View INDICATION: Chest pain. TECHNIQUE: Frontal view of the chest. COMPARISON: 09/29/2023 FINDINGS: Lungs and pleural spaces: No consolidation or pulmonary edema. No pleural effusion or pneumothorax. Heart: Shape and configuration within normal limits allowing for technique. Mediastinum: Normal contour. Bones/joints: No fracture, erosion or dislocation. Soft tissues: No abnormality noted. No radiopaque foreign body noted. Upper abdomen: No abnormality noted. IMPRESSION: No abnormality noted. ACT 112: Negative or not required by law. Electronically signed by Suki Hudson 10-06-2024 7:07 PM Abdomen/Pelvis CT 10/06/24 19:18 Exam(s): CT ABDOMEN + PELVIS With Contrast IV Amt: 90 ml optiray EXAM: CT Abdomen and Pelvis With Intravenous Contrast CLINICAL HISTORY: Reason for exam: trauma. TECHNIQUE: Axial computed tomography images of the abdomen and pelvis with intravenous contrast. CTDI is 26.58 mGy and DLP is 1350.03 mGy-cm. Automated exposure control was utilized for the study. A dose lowering technique was utilized adhering to the principles of ALARA. CONTRAST: Patient received 90 ml optiray of IV contrast COMPARISON: None FINDINGS: Lung bases: Unremarkable. No mass. No consolidation. ABDOMEN: Liver: Hepatic steatosis. Gallbladder and bile ducts: Prior cholecystectomy. No ductal dilation. Pancreas: Unremarkable. No mass. No ductal dilation. Spleen: Mild splenomegaly. Adrenals: Unremarkable. No mass. Kidneys and ureters: Unremarkable. No hydronephrosis or obstructing ureteral stone. Stomach and bowel: Postsurgical changes of the stomach. Evaluation of the stomach is limited by underdistention. No mucosal thickening. No bowel obstruction or inflammation. PELVIS: Appendix: Normal appendix. Bladder: Decompressed bladder limits evaluation. Reproductive: Prior hysterectomy. ABDOMEN and PELVIS: Intraperitoneal space: Unremarkable. No free air. No significant fluid collection. Bones/joints: L4 limbus vertebra. Degenerative changes of the spine. No acute fracture. No dislocation. Soft tissues: Unremarkable. Vasculature: Unremarkable. No abdominal aortic aneurysm. Lymph nodes: Unremarkable. No enlarged lymph nodes. IMPRESSION: No acute findings in the abdomen or pelvis. Electronically signed by: Glynn Sanchez M.D. 10/06/24 20:[address] 10/06/24 19:18 Exam(s): CT C SPINE EXAM: CT Cervical Spine Without Intravenous Contrast CLINICAL HISTORY: Reason for exam: fall. TECHNIQUE: Axial computed tomography images of the cervical spine without intravenous contrast. CTDI is 24.21 mGy and DLP is 433.01 mGy-cm. Automated exposure control was utilized for the study. A dose lowering technique was utilized adhering to the principles of ALARA. COMPARISON: CT C-spine on 05/12/2024 FINDINGS: Bones: Normal alignment. No acute fracture or bony lesion. Suboccipital craniectomy changes. Disc spaces: No subluxation. No spinal canal stenosis or neuroforaminal stenosis. Soft tissues: Normal. Other: Small polyp versus mucous retention cyst in the right maxillary sinus.. IMPRESSION: No acute traumatic abnormality. Electronically signed by: Glynn Sanchez M.D. 10/06/24 20:[address] 10/06/24 19:18 Exam(s): CT CHEST With Contrast IV Amt: 90 ml optiray 320 EXAM: CT Chest With Intravenous Contrast CLINICAL HISTORY: Reason for exam: trauma. TECHNIQUE: Axial computed tomography images of the chest with intravenous contrast. CTDI is 25.45 mGy and DLP is 771.04 mGy-cm. Automated exposure control was utilized for the study. A dose lowering technique was utilized adhering to the principles of ALARA. CONTRAST: Patient received 90 ml optiray 320 of IV contrast COMPARISON: CT chest on 12/30/2023 FINDINGS: Lungs: Mild dependent atelectasis bilaterally. No focal consolidation. No mass. Pleural space: Unremarkable. No pneumothorax. No significant effusion. Heart: Unremarkable. No cardiomegaly. No significant pericardial effusion. No significant coronary artery calcifications. Bones/joints: Mild degenerative changes of the spine. No acute fracture. No dislocation. Soft tissues: Unremarkable. Vasculature: Unremarkable. No thoracic aortic aneurysm. Lymph nodes: Unremarkable. No enlarged lymph nodes. IMPRESSION: No acute findings in the chest. Electronically signed by: Glynn Sanchez M.D. 10/06/24 20:[address] 10/06/24 19:18 Exam(s): CT HEAD Without Contrast EXAM: CT Head Without Intravenous Contrast CLINICAL HISTORY: Reason for exam: trauma. TECHNIQUE: Axial computed tomography images of the head/brain without intravenous contrast. CTDI is 36.18 mGy and DLP is 546.36 mGy-cm. Automated exposure control was utilized for the study. A dose lowering technique was utilized adhering to the principles of ALARA. COMPARISON: CT head on 05/12/2024 FINDINGS: Brain: No acute infarct or hemorrhage. No extra-axial fluid collection. No mass effect or midline shift. Similar enlarged empty sella. Chiari I malformation again noted with suboccipital craniectomy change. Ventricles and sulci: Normal. No ventriculomegaly or intraventricular hemorrhage. Bones: Normal. No bony lesion or acute fracture. Subcutaneous tissues: Normal. Sinuses: Normal. No air-fluid levels or mucosal thickening. Mastoid air cells: Normal. Orbits: Grossly unremarkable. IMPRESSION: No acute intracranial abnormality. Electronically signed by: Glynn Sanchez M.D. 10/06/24 20:54 PM Discharge Plan Visit Data Chief Complaint: Fall Stated Complaint: FALL, BACK AND ABDOMINAL PAIN ED Provider: Mo Curran ED Midlevel Provider: Ammon Pacheco Discharge Problem: Syncope, Abdominal pain, Head injury Patient Disposition: Being Evaluated by Hospitalist Forms Stand Alone Forms: [facility] Prescriptions Prescriptions: No Action escitalopram oxalate [Lexapro] 20 mg tablet 20 mg PO QAM 90 Days Qty: 90 4RF buspirone 15 mg tablet 15 mg PO BID cyanocobalamin (vitamin B-12) 1,000 mcg Capsule 1,000 mcg PO QAM cholecalciferol (vitamin D3) [Vitamin D3] 50 mcg (2,000 unit) Capsule 50 mcg PO QAM sucralfate 100 mg/mL Suspension 1 g PO QID Qty: 420 0RF prochlorperazine maleate 5 mg Tablet 5 mg PO Q6H PRN (Reason: nausea and vomiting) Qty: 30 0RF ondansetron 8 mg Tablet,Disintegrating 8 mg PO Q8H PRN (Reason: nausea and vomiting) Qty: 30 0RF esomeprazole magnesium [Nexium] 40 mg capsule,delayed release(DR/EC) 40 mg PO BID Qty: 60 0RF topiramate [Topamax] 100 mg tablet 100 mg PO QPM Aimovig Autoinjector 140 mg/mL auto-injector 140 mg subcut MONTHLY pantoprazole 40 mg tablet,delayed release (DR/EC) 40 mg PO BID Referrals Referrals: Silvana Mcgarry CRNP [Primary Care Provider] - Discharge Problem: Syncope Qualifiers: Syncope type: unspecified Qualified Code(s): R55 - Syncope and collapse Abdominal pain Qualifiers: Abdominal location: unspecified location Qualified Code(s): R10.9 - Unspecified abdominal pain Head injury Qualifiers: Encounter type: initial encounter Qualified Code(s): S09.90XA - Unspecified injury of head, initial encounter
[2024-10-06 19:29] LABS: Basophils # (auto) 0.03 K/uL (0.00-0.20); Basophils % (auto) 0.6 %; Eosinophils # (auto) 0.06 K/uL (0.00-0.50); Eosinophils % (auto) 1.1 %; Immature Granulocytes # (auto) 0.01 K/uL (0.01-0.20); Immature Granulocytes % (auto) 0.2 %; Lymphocytes # (auto) 1.76 K/uL (1.20-3.40); Lymphocytes % (auto) 33.4 %; Mean Corpuscular Hemoglobin 31.1 pg (25.0-34.0); Mean Corpuscular Hgb Conc 35.2 g/dL (32.0-36.0); Mean Corpuscular Volume 88.4 fL (80.0-100.0); Mean Platelet Volume 11.2 fL (9.4-12.4); Monocytes # (auto) 0.26 K/uL (0.11-0.59); Monocytes % (auto) 4.9 %; Neutrophils # (auto) 3.15 K/uL (1.40-6.50); Neutrophils % (auto) 59.8 %; Platelet Count 186 K/uL (130-400); RDW Coefficient of Variation 12.4 % (11.5-14.5)
[2024-10-06] MEDS: SODIUM CHLORIDE 0.9% 1,000 ML IV ONE (19:30)
[2024-10-06] MEDS: OPTIRAY 320 100ml IV ONE (19:46)
[2024-10-06] MEDS: MoRPHine SULFATE 4 MG/ML 1 ML CARP\\VIAL IV STA ×2 (20:10→21:52)
[2024-10-06] MEDS: ONDANSETRON INJ 2 MG/ML 2 ML VIAL IV STA (20:10)
[2024-10-06 20:25] LABS: Folate (Folic Acid),Ser orPlas 2.88 ng/ml (>5.38)
--- NOTE | 2024-10-06 20:48 | CT Scan Report ---
Exam(s): CT CHEST With Contrast IV Amt: 90 ml optiray 320 EXAM: CT Chest With Intravenous Contrast CLINICAL HISTORY: Reason for exam: trauma. TECHNIQUE: Axial computed tomography images of the chest with intravenous contrast. CTDI is 25.45 mGy and DLP is 771.04 mGy-cm. Automated exposure control was utilized for the study. A dose lowering technique was utilized adhering to the principles of ALARA. CONTRAST: Patient received 90 ml optiray 320 of IV contrast COMPARISON: CT chest on 12/30/2023 FINDINGS: Lungs: Mild dependent atelectasis bilaterally. No focal consolidation. No mass. Pleural space: Unremarkable. No pneumothorax. No significant effusion. Heart: Unremarkable. No cardiomegaly. No significant pericardial effusion. No significant coronary artery calcifications. Bones/joints: Mild degenerative changes of the spine. No acute fracture. No dislocation. Soft tissues: Unremarkable. Vasculature: Unremarkable. No thoracic aortic aneurysm. Lymph nodes: Unremarkable. No enlarged lymph nodes. IMPRESSION: No acute findings in the chest. Electronically signed by: Glynn Sanchez M.D. 10/06/24 20:47 PM
--- NOTE | 2024-10-06 20:52 | CT Scan Report ---
Exam(s): CT ABDOMEN + PELVIS With Contrast IV Amt: 90 ml optiray EXAM: CT Abdomen and Pelvis With Intravenous Contrast CLINICAL HISTORY: Reason for exam: trauma. TECHNIQUE: Axial computed tomography images of the abdomen and pelvis with intravenous contrast. CTDI is 26.58 mGy and DLP is 1350.03 mGy-cm. Automated exposure control was utilized for the study. A dose lowering technique was utilized adhering to the principles of ALARA. CONTRAST: Patient received 90 ml optiray of IV contrast COMPARISON: None FINDINGS: Lung bases: Unremarkable. No mass. No consolidation. ABDOMEN: Liver: Hepatic steatosis. Gallbladder and bile ducts: Prior cholecystectomy. No ductal dilation. Pancreas: Unremarkable. No mass. No ductal dilation. Spleen: Mild splenomegaly. Adrenals: Unremarkable. No mass. Kidneys and ureters: Unremarkable. No hydronephrosis or obstructing ureteral stone. Stomach and bowel: Postsurgical changes of the stomach. Evaluation of the stomach is limited by underdistention. No mucosal thickening. No bowel obstruction or inflammation. PELVIS: Appendix: Normal appendix. Bladder: Decompressed bladder limits evaluation. Reproductive: Prior hysterectomy. ABDOMEN and PELVIS: Intraperitoneal space: Unremarkable. No free air. No significant fluid collection. Bones/joints: L4 limbus vertebra. Degenerative changes of the spine. No acute fracture. No dislocation. Soft tissues: Unremarkable. Vasculature: Unremarkable. No abdominal aortic aneurysm. Lymph nodes: Unremarkable. No enlarged lymph nodes. IMPRESSION: No acute findings in the abdomen or pelvis. Electronically signed by: Glynn Sanchez M.D. 10/06/24 20:51 PM
--- NOTE | 2024-10-06 20:55 | CT Scan Report ---
Exam(s): CT HEAD Without Contrast EXAM: CT Head Without Intravenous Contrast CLINICAL HISTORY: Reason for exam: trauma. TECHNIQUE: Axial computed tomography images of the head/brain without intravenous contrast. CTDI is 36.18 mGy and DLP is 546.36 mGy-cm. Automated exposure control was utilized for the study. A dose lowering technique was utilized adhering to the principles of ALARA. COMPARISON: CT head on 05/12/2024 FINDINGS: Brain: No acute infarct or hemorrhage. No extra-axial fluid collection. No mass effect or midline shift. Similar enlarged empty sella. Chiari I malformation again noted with suboccipital craniectomy change. Ventricles and sulci: Normal. No ventriculomegaly or intraventricular hemorrhage. Bones: Normal. No bony lesion or acute fracture. Subcutaneous tissues: Normal. Sinuses: Normal. No air-fluid levels or mucosal thickening. Mastoid air cells: Normal. Orbits: Grossly unremarkable. IMPRESSION: No acute intracranial abnormality. Electronically signed by: Glynn Sanchez M.D. 10/06/24 20:54 PM
--- NOTE | 2024-10-06 20:56 | CT Scan Report ---
Exam(s): CT C SPINE EXAM: CT Cervical Spine Without Intravenous Contrast CLINICAL HISTORY: Reason for exam: fall. TECHNIQUE: Axial computed tomography images of the cervical spine without intravenous contrast. CTDI is 24.21 mGy and DLP is 433.01 mGy-cm. Automated exposure control was utilized for the study. A dose lowering technique was utilized adhering to the principles of ALARA. COMPARISON: CT C-spine on 05/12/2024 FINDINGS: Bones: Normal alignment. No acute fracture or bony lesion. Suboccipital craniectomy changes. Disc spaces: No subluxation. No spinal canal stenosis or neuroforaminal stenosis. Soft tissues: Normal. Other: Small polyp versus mucous retention cyst in the right maxillary sinus.. IMPRESSION: No acute traumatic abnormality. Electronically signed by: Glynn Sanchez M.D. 10/06/24 20:55 PM
[2024-10-06] MEDS: PROMETHAZINE 12.5 MG/50.5 ML BAG IV STA (21:52)
[2024-10-06 21:55] LABS: Alanine Aminotransferase 9 U/L (7-52); Albumin Globulin Ratio 2.2 (0.9-2); Alkaline Phosphatase 62 U/L (34-104); Anion Gap 7 (3-11); Aspartate Aminotransferase 15 U/L (13-39); BUN Creatinine Ratio 15.6 (10-20); Bilirubin,Total 0.8 mg/dl (0.2-1.0); Blood Urea Nitrogen 12 mg/dl (6-23); Calcium 8.4 mg/dl (8.6-10.3); Carbon Dioxide 23 mmol/L (21-32); Chloride 109 mmol/L (98-107); Globulin 1.8 gm/dl (2.5-4.0); Glucose 83 mg/dl (70-99(Fasting)); Magnesium 1.8 mg/dl (1.7-2.4); Phosphorus 3.6 mg/dl (2.5-4.9); Potassium 3.8 mmol/L (3.5-5.1); Sodium 139 mmol/L (136-145); Total Protein 5.8 gm/dl (6.0-8.3)
[2024-10-06] MEDS: DICYCLOMINE HCL 20 MG TAB PO STA (22:20)
--- NOTE | 2024-10-06 22:21 | History & Physical Report ---
Date of Service October 06, 2024 Assessment & Plan (1) Abdominal pain: Plan: 43yo female with history of gastric sleeve surgery performed in December 2023 presenting with persistent abdominal pain, nausea and PO intolerance ongoing since August. Patient reports she has been unable to keep down her medications or any food. Overall patient has not been able to tolerate much solid food since having her surgery. She does have a followup with her Surgeon scheduled on 10/12/23. Suspect that GERD is playing at least some part in patient's symptoms. She reports she has been unable to keep down her medications - including her PPI and Carafate. -Admit to medical -Check lipase - no pancreatic inflammation noted on imaging -Maintain aspiration precautions -Will give IVF - NSS at 80mL/hr x 3L + Folic Acid 2mg/bag -Mg x 2gm -Pepcid 20mg IV BID -Protonix 40mg IV BID -Resume Carafate 1 gm po QID -Zofran PRN -Tylenol 1gm IV TID PRN -Morphine PRN -Dulcolax WA PRN Constipation -If patient fails to improve with above measures would consider GI consultation - ?need for additional imaging or endoscopic evaluation given her report of fairly rapid post-prandial vomiting and food getting "stuck" (2) Syncope: Plan: Patient with possible syncopal event earlier today. She has no complaints presently. Has had extensive workup in the past. -Check orthostatic vital signs -Monitor (3) Bipolar I disorder, single manic episode: Plan: Chronic. Controlled -Continue Topamax 100mg po qPM -Continue Escitalopram 20mg po daily -Continue Buspirone 15mg po BID (4) GERD (gastroesophageal reflux disease): Plan: Suspect symptoms of abdominal pain and nausea at least in part due to GERD -IV Pepcid and Protonix -Carafate Plan F/E/N - NSS at 80mL/hr + Folic acid x 3bags, Mg x 2gm, repeat chemistry in AM, Full liquid diet as tolerated Ppx - low risk for DVT Code - Full Dispo - Admit to medical History of Present Illness Chief Complaint: syncopal event, abdominal pain Primary Care Provider: LUIS EDUARDO Bower Gladis Chong is a 43yo female with history of Gastric Sleeve operation performed in [place] by Dr. Villanueva in December 2023, GERD, Bipolar presenting with a possible syncopal event, now with severe abdominal pain. Patient's partner is at bedside. He reports that tonight around 17:35 he received a text from [facility] that said "thanks" but did not make sense. When he went to check on her he found her laying on the bedroom floor. She was complaining of posterior head pain but otherwise no complaints. She does not recall further details of this event. She has had multiple syncopal events in the past with extensive workup including imaging, echo and outpatient continuous cardiac monitoring which were unrevealing. Patient reports feeling very dehydrated now. She states that since August she has had fairly persistent abdominal pain which has been increasing in severity and duration. She has nausea as well as PO intolerance. She reports being unable to tolerate PO and has not been able to take her medications for weeks. Her abdominal pain is not associated with PO intake and is not relieved by bowel movements. She is able to chew - reports when she swallows she feels that food, liquids and medications often get "stuck" mid-esophagus. She then vomits - typically within 5-10 minutes of ingestion. She reports the vomit is undigested food and fully intact pills. Patient otherwise reports decreased UOP and cloudy urine. Denies fever, chills, chest pain, palpitations, cough, SOB. Denies abdominal distention. She is passing gas. She has an appointment with Surgery on 10/12/24 in [place]. ER Course: NSS x 1L Promethazine 12.5mg IV Zofran 4mg IV Morphine 4mg IV x 2 Dicyclomine 20mg PO Allergies Allergy/AdvReac Type Severity Reaction Status Date / Time Fish Containing Products Allergy Intermediate Rash Verified 10/06/24 20:37 shellfish derived Allergy Verified 10/06/24 20:37 Home Medications Medication Instructions Recorded Confirmed Type cyanocobalamin (vitamin B-12) 1,000 mcg PO QAM 05/24/18 10/06/24 History 1,000 mcg capsule cholecalciferol (vitamin D3) 50 50 mcg PO QAM 02/11/22 10/06/24 History mcg (2,000 unit) capsule (Vitamin D3) buspirone 15 mg tablet 15 mg PO BID 07/15/22 10/06/24 History escitalopram oxalate 20 mg tablet 20 mg PO QAM 90 days #90 tabs 03/28/24 10/06/24 Rx (Lexapro) erenumab-aooe 140 mg/mL 140 mg subcut MONTHLY 08/28/24 10/06/24 History subcutaneous auto-injector (Aimovig Autoinjector) topiramate 100 mg tablet (Topamax) 100 mg PO QPM 08/28/24 10/06/24 History esomeprazole magnesium 40 mg 40 mg PO BID #60 caps 09/04/24 10/06/24 Rx capsule,delayed release (Nexium) ondansetron 8 mg disintegrating 8 mg PO Q8H PRN nausea and 09/04/24 10/06/24 Rx tablet vomiting #30 tabs prochlorperazine maleate 5 mg 5 mg PO Q6H PRN nausea and 09/04/24 10/06/24 Rx tablet vomiting #30 tabs sucralfate 100 mg/mL oral 1 g (10 mL) PO QID #420 mL 09/04/24 10/06/24 Rx suspension pantoprazole 40 mg tablet,delayed 40 mg PO BID 10/06/24 10/06/24 History release Past Med/Surg History Problem List (Updated 10/06/24 @ 22:35 by Jazmín Reyes DO) Head injury (Acute) Abdominal pain (Acute) Syncope (Acute) Cervical radiculopathy Adnexal cyst Paresthesia of left upper extremity Intermittent palpitations Allergic rhinitis due to pollen Snoring Hypersomnia CASSI III (cervical intraepithelial neoplasia III) History of claustrophobia Plantar fasciitis Mixed hyperlipidemia Binge eating disorder Metabolic syndrome Carpal tunnel syndrome, right Morbid obesity Strain of right biceps tendon Migraine without aura, not intractable, without status migrainosus Anxiety Eustachian tube dysfunction Bipolar I disorder, single manic episode (Acute) Mitral valve prolapse syndrome (Acute) Vitamin B12 deficiency (Acute) Vitamin D deficiency (Acute) GERD (gastroesophageal reflux disease) Depression Degenerative disc disease Medical History Hypertriglyceridemia Chiari malformation s/p decompression (~2014) No issues since per 05/12/[address] "There has been prior posterior suboccipital decomp ression. There is persistent caudal positioning of the cerebellar tonsils consistent with Chiari I malformation. 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 with MV on 12/2022 ECHO Hx of Lyme disease 2015 - antibiotic completed Hx of ectopic Anxiety and depression Morbid obesity Pre-diabetes s/p gastric sleeve procedure - no longer an issue GERD (gastroesophageal reflux disease) controlled, stable per pt Post traumatic stress disorder Deep vein thrombosis Around 2006 (LUE- unknown etiology) Headache h/o post spinal tap PAUL and generalized weakness in 2018 [facility] Surgical History Hx laparoscopic cholecystectomy Status post sleeve gastrectomy 12/22/23 @ [facility] Myriam Villanueva Hx of hysterectomy History of carpal tunnel release Right History of MRI Right elbow MRI (02/13/22): MAC at [facility]. No issues noted per post-op anesthesia progress note. History of surgery Chiari Malformation repair (~2014; [facility]) Hx of foot surgery R/L repair of plantar fasciitis and removal of heel spurs History of laparoscopy History of tooth extraction Family History Grandmother (Paternal) Family history of diabetes mellitus Family/Other Chiari malformation Venous thrombosis Grandmother Stroke Mother Hypothyroidism Father Mitral valve prolapse Grandmother (Maternal) Breast cancer Denies family history of Ovarian cancer Colorectal cancer Social History Smoking Status: Never smoker Second Hand Exposure: No; Do You Dip or Chew Tobacco: No; Hx Alcohol Use: No Hx Substance Use: No Preferred Language: Telugu Communication Ability: Effective Custom Clothier Required: No Beliefs That Will Affect Care: None marital status: Current Living Situation: Family Current Living Situation Comment: lives with the and children current occupational status: employed 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 Feels Safe at Home: Yes Diet: low carbohydrate and other Diet Comment: high protein Physical Activity Frequency: 5-6 Times per Week Assistive Devices: None Review of Systems Review of Systems: All systems reviewed & are unremarkable except as noted in HPI & below Physical Exam Physical Exam: General: patient in distress secondary to abdominal pain, AA&O Skin: warm, dry, intact, no rashes or lesions HEENT: NC/AT, PERRL, EOMI, anicteric sclera, conjunctiva without injection, external ear normal to inspection and nontender, nares patent, dry lips and mucus membranes, dentition intact, no oropharyngeal lesions, neck supple, trachea midline, no LAD, no thyromegaly, no JVD Heart: +S1/S2, regular, no m/r/g Lungs: equal air entry bilaterally, no rales/rhonchi/wheezes Abd: +BS, soft, ND, tender in upper abdomen and RUQ, no rebound/guarding Ext: warm, 2+ pulses in UE/LE bilaterally, no clubbing/cyanosis or edema Neuro: nonfocal, patient AA&O x 4, speech intact, no facial droop, moving all extremities on command with equal strength 5/5 Results & Data Results & Data Vital Signs (Past 12 Hours) Vital Signs Temp Pulse Pulse Resp BP BP Pulse Ox 10/06/24 22:08 83 16 127/78 100 10/06/24 18:13 36.6 C 93 H 18 114/75 99 O2 Del Method 10/06/24 22:08 10/06/24 18:13 Room Air Laboratory Results Laboratory Results WBC 5.27 K/ul (4.8-10.8) 10/06/24 18:30 RBC 4.50 M/uL (4.20-5.40) 10/06/24 18:30 Hgb 14.0 g/dl (12.0-16.0) 10/06/24 18:30 Hct 39.8 % (37.0-47.0) 10/06/24 18:30 MCV 88.4 fL (80.0-100.0) 10/06/24 18:30 MCH 31.1 pg (25.0-34.0) 10/06/24 18:30 MCHC 35.2 g/dL (32.0-36.0) 10/06/24 18:30 RDW Std Deviation 40.0 fL (36.4-46.3) 10/06/24 18:30 RDW Coeff of Zuleyma 12.4 % (11.5-14.5) 10/06/24 18:30 Plt Count 186 K/uL (130-400) 10/06/24 18:30 MPV 11.2 fL (9.4-12.4) 10/06/24 18:30 Immature Gran % (Auto) 0.2 % 10/06/24 18:30 Neut % (Auto) 59.8 % 10/06/24 18:30 Lymph % (Auto) 33.4 % 10/06/24 18:30 Hand % (Auto) 4.9 % 10/06/24 18:30 Eos % (Auto) 1.1 % 10/06/24 18:30 Baso % (Auto) 0.6 % 10/06/24 18:30 Neut # (Auto) 3.15 K/uL (1.40-6.50) 10/06/24 18:30 Lymph # (Auto) 1.76 K/uL (1.20-3.40) 10/06/24 18:30 Hand # (Auto) 0.26 K/uL (0.11-0.59) 10/06/24 18:30 Eos # (Auto) 0.06 K/uL (0.00-0.50) 10/06/24 18:30 Baso # (Auto) 0.03 K/uL (0.00-0.20) 10/06/24 18:30 Immature Gran # (Auto) 0.01 K/uL (0.01-0.20) 10/06/24 18:30 PT 12.8 Seconds (9.0-12.0) H 10/06/24 18:30 INR 1.2 (0.9-1.1) H 10/06/24 18:30 APTT 32 Seconds (21-31) H 10/06/24 18:30 PTT Ratio 1.2 10/06/24 18:30 Sodium 139 mmol/L (136-145) 10/06/24 21:24 Potassium 3.8 mmol/L (3.5-5.1) 10/06/24 21:24 Chloride 109 mmol/L (98-107) H 10/06/24 21:24 Carbon Dioxide 23 mmol/L (21-32) 10/06/24 21:24 Anion Gap 7 (3-11) 10/06/24 21:24 BUN 12 mg/dl (6-23) 10/06/24 21:24 Creatinine 0.77 mg/dl (0.6-1.2) 10/06/24 21:24 Est Cr Clr Drug Dosing Not Reportable 10/06/24 21:24 eGFR 98.71 10/06/24 21:24 BUN/Creatinine Ratio 15.6 (10-20) 10/06/24 21:24 Glucose 83 mg/dl (70-99(Fasting)) 10/06/24 21:24 POC Glucose 79 mg/dl (70-99) 10/06/24 18:19 Calcium 8.4 mg/dl (8.6-10.3) L 10/06/24 21:24 Phosphorus 3.6 mg/dl (2.5-4.9) 10/06/24 21:24 Magnesium 1.8 mg/dl (1.7-2.4) 10/06/24 21:24 Total Bilirubin 0.8 mg/dl (0.2-1.0) 10/06/24 21:24 AST 15 U/L (13-39) 10/06/24 21:24 ALT 9 U/L (7-52) 10/06/24 21:24 Alkaline Phosphatase 62 U/L (34-104) 10/06/24 21:24 Troponin I High Sens 3.2 pg/ml (0-14) 10/06/24 18:30 Total Protein 5.8 gm/dl (6.0-8.3) L 10/06/24 21:24 Albumin 4.0 gm/dl (3.4-5.0) 10/06/24 21:24 Globulin 1.8 gm/dl (2.5-4.0) L 10/06/24 21:24 Albumin/Globulin Ratio 2.2 (0.9-2) H 10/06/24 21:24 Vitamin B12 544 pg/ml (180-914) 10/06/24 18:30 25-OH Vitamin D Total 77.2 ng/ml (30-100) 10/06/24 18:30 Folate 2.88 ng/ml (>5.38) L 10/06/24 18:30 Impressions Chest X-Ray 10/06/24 18:18 EXAM: Radiograph of the Chest 1 View INDICATION: Chest pain. TECHNIQUE: Frontal view of the chest. COMPARISON: 09/29/2023 FINDINGS: Lungs and pleural spaces: No consolidation or pulmonary edema. No pleural effusion or pneumothorax. Heart: Shape and configuration within normal limits allowing for technique. Mediastinum: Normal contour. Bones/joints: No fracture, erosion or dislocation. Soft tissues: No abnormality noted. No radiopaque foreign body noted. Upper abdomen: No abnormality noted. IMPRESSION: No abnormality noted. ACT 112: Negative or not required by law. Electronically signed by Suki Hudson 10-06-2024 7:07 PM Abdomen/Pelvis CT 10/06/24 19:18 Exam(s): CT ABDOMEN + PELVIS With Contrast IV Amt: 90 ml optiray EXAM: CT Abdomen and Pelvis With Intravenous Contrast CLINICAL HISTORY: Reason for exam: trauma. TECHNIQUE: Axial computed tomography images of the abdomen and pelvis with intravenous contrast. CTDI is 26.58 mGy and DLP is 1350.03 mGy-cm. Automated exposure control was utilized for the study. A dose lowering technique was utilized adhering to the principles of ALARA. CONTRAST: Patient received 90 ml optiray of IV contrast COMPARISON: None FINDINGS: Lung bases: Unremarkable. No mass. No consolidation. ABDOMEN: Liver: Hepatic steatosis. Gallbladder and bile ducts: Prior cholecystectomy. No ductal dilation. Pancreas: Unremarkable. No mass. No ductal dilation. Spleen: Mild splenomegaly. Adrenals: Unremarkable. No mass. Kidneys and ureters: Unremarkable. No hydronephrosis or obstructing ureteral stone. Stomach and bowel: Postsurgical changes of the stomach. Evaluation of the stomach is limited by underdistention. No mucosal thickening. No bowel obstruction or inflammation. PELVIS: Appendix: Normal appendix. Bladder: Decompressed bladder limits evaluation. Reproductive: Prior hysterectomy. ABDOMEN and PELVIS: Intraperitoneal space: Unremarkable. No free air. No significant fluid collection. Bones/joints: L4 limbus vertebra. Degenerative changes of the spine. No acute fracture. No dislocation. Soft tissues: Unremarkable. Vasculature: Unremarkable. No abdominal aortic aneurysm. Lymph nodes: Unremarkable. No enlarged lymph nodes. IMPRESSION: No acute findings in the abdomen or pelvis. Electronically signed by: Glynn Snachez M.D. 10/06/24 20:[address] 10/06/24 19:18 Exam(s): CT C SPINE EXAM: CT Cervical Spine Without Intravenous Contrast CLINICAL HISTORY: Reason for exam: fall. TECHNIQUE: Axial computed tomography images of the cervical spine without intravenous contrast. CTDI is 24.21 mGy and DLP is 433.01 mGy-cm. Automated exposure control was utilized for the study. A dose lowering technique was utilized adhering to the principles of ALARA. COMPARISON: CT C-spine on 05/12/2024 FINDINGS: Bones: Normal alignment. No acute fracture or bony lesion. Suboccipital craniectomy changes. Disc spaces: No subluxation. No spinal canal stenosis or neuroforaminal stenosis. Soft tissues: Normal. Other: Small polyp versus mucous retention cyst in the right maxillary sinus.. IMPRESSION: No acute traumatic abnormality. Electronically signed by: Glynn Sanchez M.D. 10/06/24 20:[address] 10/06/24 19:18 Exam(s): CT CHEST With Contrast IV Amt: 90 ml optiray 320 EXAM: CT Chest With Intravenous Contrast CLINICAL HISTORY: Reason for exam: trauma. TECHNIQUE: Axial computed tomography images of the chest with intravenous contrast. CTDI is 25.45 mGy and DLP is 771.04 mGy-cm. Automated exposure control was utilized for the study. A dose lowering technique was utilized adhering to the principles of ALARA. CONTRAST: Patient received 90 ml optiray 320 of IV contrast COMPARISON: CT chest on 12/30/2023 FINDINGS: Lungs: Mild dependent atelectasis bilaterally. No focal consolidation. No mass. Pleural space: Unremarkable. No pneumothorax. No significant effusion. Heart: Unremarkable. No cardiomegaly. No significant pericardial effusion. No significant coronary artery calcifications. Bones/joints: Mild degenerative changes of the spine. No acute fracture. No dislocation. Soft tissues: Unremarkable. Vasculature: Unremarkable. No thoracic aortic aneurysm. Lymph nodes: Unremarkable. No enlarged lymph nodes. IMPRESSION: No acute findings in the chest. Electronically signed by: Glynn Sanchez M.D. 10/06/24 20:[address] 10/06/24 19:18 Exam(s): CT HEAD Without Contrast EXAM: CT Head Without Intravenous Contrast CLINICAL HISTORY: Reason for exam: trauma. TECHNIQUE: Axial computed tomography images of the head/brain without intravenous contrast. CTDI is 36.18 mGy and DLP is 546.36 mGy-cm. Automated exposure control was utilized for the study. A dose lowering technique was utilized adhering to the principles of ALARA. COMPARISON: CT head on 05/12/2024 FINDINGS: Brain: No acute infarct or hemorrhage. No extra-axial fluid collection. No mass effect or midline shift. Similar enlarged empty sella. Chiari I malformation again noted with suboccipital craniectomy change. Ventricles and sulci: Normal. No ventriculomegaly or intraventricular hemorrhage. Bones: Normal. No bony lesion or acute fracture. Subcutaneous tissues: Normal. Sinuses: Normal. No air-fluid levels or mucosal thickening. Mastoid air cells: Normal. Orbits: Grossly unremarkable. IMPRESSION: No acute intracranial abnormality. Electronically signed by: Glynn Sanchez M.D. 10/06/24 20:54 PM ECG Additional Comments: EKG with NSR at 76bpm, sinus arrhythmia, IL=346, QRS=70, ZZl=474, no acute ischemic changes - similar to prior study PG Care Time/CCT Total # of Minutes Spent Total Time Spent with Patient: Total time spent is greater than 50% in coordination of care (as documented) at patient's floor/unit and/or counseling patient: Coding Level of Care Code 70557 INT INP/OBS CARE 3/75MIN Diagnoses Abdominal pain R10.9 Abdominal location: unspecified location Syncope R55 Syncope type: unspecified Bipolar I disorder, single manic episode F30.9 GERD (gastroesophageal reflux disease) K21.9 (1) Abdominal pain Abdominal location: unspecified location Qualified Code(s): R10.9 - Unspecified abdominal pain (2) Syncope Syncope type: unspecified Qualified Code(s): R55 - Syncope and collapse
[2024-10-06] MEDS: MoRPHine SULFATE 2 MG/ML CARP IV STA (22:53)
[2024-10-06] MEDS ORDERED: bisacodyL 10 MG SUPP PR PRN (23:37)
[2024-10-06 23:55] LABS: Lipase 11 U/L (11-82)
[2024-10-07] MEDS: FAMOTIDINE 20MG IV PUSH 20 MG/5 ML SYR IV SCH (00:06)
[2024-10-07] MEDS: PANTOprazole 40 MG/10 ML SYR IV SCH (00:07)
[2024-10-07] MEDS: busPIRone 15 MG TAB PO SCH (00:07)
[2024-10-07] MEDS: MAGNESIUM SULFATE / D5W 1 GM/100 ML BAG IV ONE (00:19)
[2024-10-07] MEDS: Patient's HEIGHT &/or WEIGHT Needed STA (00:54)
[2024-10-07] MEDS: FOLIC ACID IV SCH (01:05)
[2024-10-07] MEDS: SODIUM CHLORIDE 0.9% IV SCH (01:05)
[2024-10-07] MEDS: ONDANSETRON INJ 2 MG/ML 2 ML VIAL IV PRN (04:31)
[2024-10-07] MEDS: MoRPHine SULFATE 4 MG/ML 1 ML CARP\\VIAL IV PRN (04:32)
[2024-10-07 05:39] LABS: Appearance Urine Clear (Clear); Bilirubin Urine Negative (Negative); Blood Urine Negative (Negative); Color Urine Yellow; Glucose Urine UA Negative (Negative); Ketones Urine 2+ (Negative); Leukocyte Esterase Urine Negative (Negative); Nitrite Urine Negative (Negative); Protein Urine Negative (Negative); Specific Gravity Urine > 1.045 (1.000-1.030); Urobilinogen Urine Positive (Negative); pH Urine 5.5 (4.5-7.5)
[2024-10-07 06:22] LABS: Hematocrit (blood only) 35.5 % (37.0-47.0); Hemoglobin 12.3 g/dl (12.0-16.0); Mean Corpuscular Hemoglobin 31.6 pg (25.0-34.0); Mean Corpuscular Hgb Conc 34.6 g/dL (32.0-36.0); Mean Corpuscular Volume 91.3 fL (80.0-100.0); Mean Platelet Volume 11.5 fL (9.4-12.4); Platelet Count 142 K/uL (130-400); RDW Coefficient of Variation 12.3 % (11.5-14.5); RDW Standard Deviation 41.2 fL (36.4-46.3); Red Blood Count 3.89 M/uL (4.20-5.40); White Blood Count 4.28 K/ul (4.8-10.8)
[2024-10-07 06:29] LABS: Albumin Level 3.7 gm/dl (3.4-5.0); BUN Creatinine Ratio 14.3 (10-20); Bilirubin Direct 0.2 mg/dl (0-0.2); Bilirubin,Total 0.9 mg/dl (0.2-1.0); Calcium 8.3 mg/dl (8.6-10.3); Creatinine Clr Calc Pharmacy 96.6 ml/min; Potassium 3.6 mmol/L (3.5-5.1); Total Protein 5.6 gm/dl (6.0-8.3)
[2024-10-07] MEDS: SUCRALFATE 1 GM/10 ML UDC PO SCH (07:57)
[2024-10-07] MEDS: METOCLOPRAMIDE HCL INJ 5 MG/ML 2 ML VIAL IV PRN (09:40)
--- NOTE | 2024-10-07 11:19 | Electrocardiogram Report ---
Test Reason : Blood Pressure : */* mmHG Vent. Rate : 76 BPM Atrial Rate : 76 BPM P-R Int : 128 ms QRS Dur : 70 ms QT Int : 384 ms P-R-T Axes : 65 36 35 degrees QTcB Int : 432 ms Normal sinus rhythm with sinus arrhythmia Abnormal ECG When compared with ECG of 31-Aug-2024 23:14, No significant change was found Confirmed by Maryjo Hendrickson (Richard) on 10/07/2024 11:18:56 AM Referred By: REFERRED SELF Confirmed By: Maryjo Hendrickson
[2024-10-07] MEDS: ESCITALOPRAM OXALATE 20 MG TAB PO SCH (12:07)
--- NOTE | 2024-10-07 16:19 | Hospitalist Progress Note ---
Date of Service October 07, 2024 Assessment & Plan (1) Abdominal pain: Plan: 43yo female with history of gastric sleeve surgery performed in December 2023 presenting with persistent abdominal pain, nausea and PO intolerance ongoing since August. Patient reports she has been unable to keep down her medications or any food. Overall patient has not been able to tolerate much solid food since having her surgery. She does have a followup with her Surgeon scheduled on 10/12/23. Suspect that GERD is playing at least some part in patient's symptoms. She reports she has been unable to keep down her medications - including her PPI and Carafate. -Check lipase - normal. No pancreatic inflammation noted on imaging -Maintain aspiration precautions -IVF - NSS at 80mL/hr x 3L + Folic Acid 2mg/bag -Mg x 2gm - LFTs elevated, CMP ordered for tomorrow and will trend -Pepcid 20mg IV BID -Protonix 40mg IV BID -Resume Carafate 1 gm po QID -Zofran PRN -Tylenol 1gm IV TID PRN -Morphine PRN -Dulcolax [place] PRN Constipation - Ativan 0.5 mg Q8h - Reglan 5mg Q8h -If patient fails to improve with above measures would consider GI consultation - ?need for additional imaging or endoscopic evaluation given her report of fairly rapid post-prandial vomiting and food getting "stuck" (2) Syncope: Plan: Patient with possible syncopal event earlier today. She has no complaints presently. Has had extensive workup in the past. - Orthostatics ok -Monitor (3) Bipolar I disorder, single manic episode: Plan: Chronic. Controlled -Continue Topamax 100mg po qPM -Continue Escitalopram 20mg po daily -Continue Buspirone 15mg po BID (4) GERD (gastroesophageal reflux disease): Plan: Suspect symptoms of abdominal pain and nausea at least in part due to GERD -IV Pepcid and Protonix -Carafate Plan F/E/N - NSS at 80mL/hr + Folic acid x 3bags, Mg x 2gm Full liquid diet as tolerated CBC, CMP, Mag, B1 labs in AM Ppx - low risk for DVT Code - Full Dispo - Admit to medical Admission and Anticipated Discharge Date Admission Date: October 06, 2024 Subjective Crystal is resting comfortably in bed during examination. She states that she had her gastric sleeve in December 2023, then in August 2024 she stated with nausea and inability to keep whole foods down. Then, a few days ago, she was unable to keep liquids down. She complains of constant, sharp epigastric abdominal pain, relieved with 4mg Morphine taking pain from 04/22 --> 10/23. She has tried taking Tylenol with no relief of her pain. Outpatient nausea regimen was not helping. Yesterday, while outside walking around she noted that she was a little SOB, but stated she felt it was due to being active in the cold weather. She does complain of fatigue, and states that she supposedly passed out yesterday but doesn't remember any of it. Denies any urinary symptoms. Denies constipation or diarrhea. Denies headache, fever, chills. Review of Systems Constitutional: + fatigue; no fever and no chills Respiratory: no cough and no dyspnea Cardiovascular: no chest pain Gastrointestinal: + abdominal pain, + nausea and + vomitin g; no pain with swallowing, no change in stools, no constipation, no diarrhea/loose stools and no blood in stools Genitourinary: no dysuria, no difficulty urinating, no urinary frequency, no urinary hesitancy, no urinary urgency and no urinary incontinence Musculoskeletal: no back pain Integumentary: no rash Physical Exam Constitutional: WD/WN, vitals as above Neck: normal visual inspection Respiratory: normal respiratory effort, lungs clear to auscultation Cardiovascular: RRR, no murmur, no edema Gastrointestinal (Abdomen): Inspection/Auscultation: normal bowel sounds Percussion/Palpation: + abdomen tender (epigastric region tender to light palpation) and abdomen soft Psychiatric: Orientation: alert and oriented x 3 Results & Data Results & Data Vital Signs (Past 12 Hours) Vital Signs Temp Pulse Resp BP Pulse Ox O2 Del Method 10/07/24 15:01 37.0 C 80 16 99/65 L 95 Room Air 10/07/24 07:30 36.6 C 82 16 104/71 98 Room Air Laboratory Results 10/07/24 10/07/24 10/06/24 Range/Units 05:30 05:25 21:24 WBC 4.28 L (4.8-10.8) K/ul RBC 3.89 L (4.20-5.40) M/uL Hgb 12.3 (12.0-16.0) g/dl Hct 35.5 L (37.0-47.0) % MCV 91.3 (80.0-100.0) fL MCH 31.6 (25.0-34.0) pg MCHC 34.6 (32.0-36.0) g/dL RDW Std Deviation 41.2 (36.4-46.3) fL RDW Coeff of Zuleyma 12.3 (11.5-14.5) % Plt Count 142 (130-400) K/uL MPV 11.5 (9.4-12.4) fL Immature Gran % (Auto) % Neut % (Auto) % Lymph % (Auto) % [place] % (Auto) % Eos % (Auto) % Baso % (Auto) % Neut # (Auto) (1.40-6.50) K/uL Lymph # (Auto) (1.20-3.40) K/uL [place] # (Auto) (0.11-0.59) K/uL Eos # (Auto) (0.00-0.50) K/uL Baso # (Auto) (0.00-0.20) K/uL Immature Gran # (Auto) (0.01-0.20) K/uL PT (9.0-12.0) Seconds INR (0.9-1.1) APTT (21-31) Seconds PTT Ratio Sodium 140 139 (136-145) mmol/L Potassium 3.6 3.8 (3.5-5.1) mmol/L Chloride 111 H 109 H (98-107) mmol/L Carbon Dioxide 23 23 (21-32) mmol/L Anion Gap 6 7 (3-11) BUN 10 12 (6-23) mg/dl Creatinine 0.70 0.77 (0.6-1.2) mg/dl Est Cr Clr Drug Dosing 96.6 Not Reportable eGFR 110.67 98.71 BUN/Creatinine Ratio 14.3 15.6 (10-20) Glucose 87 83 (70-99(Fasting)) mg/dl POC Glucose (70-99) mg/dl Calcium 8.3 L 8.4 L (8.6-10.3) mg/dl Phosphorus 3.6 (2.5-4.9) mg/dl Magnesium 1.8 (1.7-2.4) mg/dl Total Bilirubin 0.9 0.8 (0.2-1.0) mg/dl Direct Bilirubin 0.2 (0-0.2) mg/dl AST 98 H 15 (13-39) U/L ALT 56 H 9 (7-52) U/L Alkaline Phosphatase 118 H 62 (34-104) U/L Troponin I High Sens (0-14) pg/ml Total Protein 5.6 L 5.8 L (6.0-8.3) gm/dl Albumin 3.7 4.0 (3.4-5.0) gm/dl Globulin 1.8 L (2.5-4.0) gm/dl Albumin/Globulin Ratio 2.2 H (0.9-2) Lipase 11 (11-82) U/L Vitamin B12 (180-914) pg/ml 25-OH Vitamin D Total (30-100) ng/ml Folate (>5.38) ng/ml Urine Color Yellow Urine Appearance Clear (Clear) Urine pH 5.5 (4.5-7.5) Ur Specific [place] > 1.045 H (1.000-1.030) Urine Protein Negative (Negative) Urine Glucose (UA) Negative (Negative) Urine Ketones 2+ H (Negative) Urine Blood Negative (Negative) Urine Nitrite Negative (Negative) Urine Bilirubin Negative (Negative) Urine Urobilinogen Positive H (Negative) Ur Leukocyte Esterase Negative (Negative) 10/06/24 10/06/24 Range/Units 18:30 18:19 WBC 5.27 (4.8-10.8) K/ul RBC 4.50 (4.20-5.40) M/uL Hgb 14.0 (12.0-16.0) g/dl Hct 39.8 (37.0-47.0) % MCV 88.4 (80.0-100.0) fL MCH 31.1 (25.0-34.0) pg MCHC 35.2 (32.0-36.0) g/dL RDW Std Deviation 40.0 (36.4-46.3) fL RDW Coeff of Zuleyma 12.4 (11.5-14.5) % Plt Count 186 (130-400) K/uL MPV 11.2 (9.4-12.4) fL Immature Gran % (Auto) 0.2 % Neut % (Auto) 59.8 % Lymph % (Auto) 33.4 % [place] % (Auto) 4.9 % Eos % (Auto) 1.1 % Baso % (Auto) 0.6 % Neut # (Auto) 3.15 (1.40-6.50) K/uL Lymph # (Auto) 1.76 (1.20-3.40) K/uL [place] # (Auto) 0.26 (0.11-0.59) K/uL Eos # (Auto) 0.06 (0.00-0.50) K/uL Baso # (Auto) 0.03 (0.00-0.20) K/uL Immature Gran # (Auto) 0.01 (0.01-0.20) K/uL PT 12.8 H (9.0-12.0) Seconds INR 1.2 H (0.9-1.1) APTT 32 H (21-31) Seconds PTT Ratio 1.2 Sodium 139 (136-145) mmol/L Potassium 3.6 (3.5-5.1) mmol/L Chloride 107 (98-107) mmol/L Carbon Dioxide 24 (21-32) mmol/L Anion Gap 8 (3-11) BUN 14 (6-23) mg/dl Creatinine 0.87 (0.6-1.2) mg/dl Est Cr Clr Drug Dosing Not Reportable eGFR 85.26 BUN/Creatinine Ratio 16.1 (10-20) Glucose 88 (70-99(Fasting)) mg/dl POC Glucose 79 (70-99) mg/dl Calcium 9.2 (8.6-10.3) mg/dl Phosphorus (2.5-4.9) mg/dl Magnesium (1.7-2.4) mg/dl Total Bilirubin 1.0 (0.2-1.0) mg/dl Direct Bilirubin (0-0.2) mg/dl AST 13 (13-39) U/L ALT 10 (7-52) U/L Alkaline Phosphatase 73 (34-104) U/L Troponin I High Sens 3.2 (0-14) pg/ml Total Protein 6.9 (6.0-8.3) gm/dl Albumin 4.6 (3.4-5.0) gm/dl Globulin 2.3 L (2.5-4.0) gm/dl Albumin/Globulin Ratio 2.0 (0.9-2) Lipase (11-82) U/L Vitamin B12 544 (180-914) pg/ml 25-OH Vitamin D Total 77.2 (30-100) ng/ml Folate 2.88 L (>5.38) ng/ml Urine Color Urine Appearance (Clear) Urine pH (4.5-7.5) Ur Specific [place] (1.000-1.030) Urine Protein (Negative) Urine Glucose (UA) (Negative) Urine Ketones (Negative) Urine Blood (Negative) Urine Nitrite (Negative) Urine Bilirubin (Negative) Urine Urobilinogen (Negative) Ur Leukocyte Esterase (Negative) PG Care Time/CCT Total # of Minutes Spent Total Time Spent with Patient: Total time spent is greater than 50% in coordination of care (as documented) at patient's floor/unit and/or counseling patient: C[place] [address] SUB INP/OBS CARE 2/35MIN Patient Type Established History Expanded Problem Focused Exam Expanded Problem Focused Medical Decision Making Moderate Complexity Diagnoses Abdominal pain R10.9 Abdominal location: unspecified location Syncope R55 Syncope type: unspecified Bipolar I disorder, single manic episode F30.9 GERD (gastroesophageal reflux disease) K21.9 (1) Abdominal pain Abdominal location: unspecified location Qualified Code(s): R10.9 - Unspecified abdominal pain (2) Syncope Syncope type: unspecified Qualified Code(s): R55 - Syncope and collapse
[2024-10-07] MEDS: LORazepam 2 MG/1 ML VIAL IV PRN (17:39)
[2024-10-07] MEDS: TOPIRAMATE 100 MG TAB PO SCH (20:45)
[2024-10-08] MEDS: ACETAMINOPHEN 1,000 MG/100 ML VIAL IV PRN (01:17)
[2024-10-08] MEDS: MoRPHine SULFATE 2 MG/ML CARP IV PRN (02:20)
[2024-10-08 06:57] LABS: Hematocrit (blood only) 34.2 % (37.0-47.0); Hemoglobin 11.7 g/dl (12.0-16.0); Mean Corpuscular Hemoglobin 31.1 pg (25.0-34.0); Mean Corpuscular Hgb Conc 34.2 g/dL (32.0-36.0); Mean Platelet Volume 11.8 fL (9.4-12.4); Platelet Count 135 K/uL (130-400); RDW Coefficient of Variation 12.1 % (11.5-14.5); RDW Standard Deviation 40.4 fL (36.4-46.3); Red Blood Count 3.76 M/uL (4.20-5.40)
[2024-10-08 07:11] LABS: Albumin Globulin Ratio 2.1 (0.9-2); Albumin Level 3.5 gm/dl (3.4-5.0); BUN Creatinine Ratio 7.7 (10-20); Bilirubin,Total 0.8 mg/dl (0.2-1.0); Calcium 8.4 mg/dl (8.6-10.3); Creatinine Clr Calc Pharmacy 86.7 ml/min; Globulin 1.7 gm/dl (2.5-4.0); Magnesium 1.7 mg/dl (1.7-2.4); Potassium 3.8 mmol/L (3.5-5.1); Total Protein 5.2 gm/dl (6.0-8.3)
[2024-10-08] MEDS: D5W AND 1/2NSS + 20MEQ KCL 20 MEQ/1,000 ML BAG IV SCH (10:49)
[2024-10-08] MEDS ORDERED: SUCRALFATE 1 GM/10 ML UDC PO PRN (11:00)
[2024-10-08] MEDS: ONDANSETRON 8MG OD TAB PO SCH (13:54)
--- NOTE | 2024-10-08 15:46 | Hospitalist Progress Note ---
Date of Service October 08, 2024 Assessment & Plan (1) Abdominal pain: Plan: 43yo female with history of gastric sleeve surgery performed in December 2023 presenting with persistent abdominal pain, nausea and PO intolerance ongoing since August. Patient reports she has been unable to keep down her medications or any food. Overall patient has not been able to tolerate much solid food since having her surgery. She does have a followup with her Surgeon scheduled on 10/12/23. She was able to produce an EGD report on her phone from [facility] that was done on 09/22 showing a small hiatal hernia and esophagitis. Suspect that GERD is playing at least some part in patient's symptoms, regurg?. She reports she has been unable to keep down her medications - including her PPI and Carafate. -Check lipase - normal. No pancreatic inflammation noted on imaging -Maintain aspiration precautions -IVF - D5 1/2 NSS + K - Mag 1.7 - LFTs improving. -Pepcid 20mg IV BID -Protonix 40mg IV BID -Resume Carafate 1 gm po QID - made this PRN since she continues to refuse -Zofran PRN -Tylenol 1gm IV TID PRN -Morphine PRN -Dulcolax [place] PRN Constipation - Ativan 0.5 mg Q8h - Reglan 5mg Q8h - Discussed esophagram with patient, she was willing to try. NPO after midnight - will plan for tomorrow. Depending on results or if failure to improve, would consider GI consult. (2) Syncope: Plan: Patient with possible syncopal event earlier today. She has no complaints presently. Has had extensive workup in the past. - Orthostatics ok -Monitor (3) Bipolar I disorder, single manic episode: Plan: Chronic. Controlled -Continue Topamax 100mg po qPM -Continue Escitalopram 20mg po daily -Continue Buspirone 15mg po BID (4) GERD (gastroesophageal reflux disease): Plan: Suspect symptoms of abdominal pain and nausea at least in part due to GERD -IV Pepcid and Protonix -Carafate Plan F/E/N - D5 1/2 NSS + K Full liquid diet as tolerated CBC, CMP, Mag, B1 labs in AM Ppx - Lovenox QAM Code - Full Dispo - Admit to medical Admission and Anticipated Discharge Date Admission Date: October 06, 2024 Subjective Crystal is resting comfortably in bed during examination. She reports she feels no better today. She is able to show an EGD on 09/22/2023 by [facility] on her phone that shows a small hiatal hernia and esophagitis. She states that she didn't feel the reglan helped. Unable to tolerate her carafate. She says that she can get some fluids down, but not able to swallow everything. Did talk about getting an esophagram, discussed that she will need to drink some contrast for this. She states that she would be willing to try. Epigastric pain still present, denies acute worsening. Denies any urinary symptoms. Denies constipation or diarrhea. Denies headache, fever, chills. Does feel her posterior head is somewhat tender after hitting it when she "blacked out" a few days ago. Blood sugar was low in the 60s this AM, started her on D5 09/14 NSS + K. B1 level remains pending. Review of Systems Constitutional: + fatigue; no fever and no chills Respiratory: no cough and no dyspnea Cardiovascular: no chest pain Gastrointestinal: + abdominal pain, + nausea and + vomitin g; no pain with swallowing, no change in stools, no constipation, no diarrhea/loose stools and no blood in stools Genitourinary: no dysuria, no difficulty urinating, no urinary frequency, no urinary hesitancy, no urinary urgency and no urinary incontinence Musculoskeletal: no back pain Integumentary: no rash Physical Exam Constitutional: WD/WN, vitals as above Neck: normal visual inspection Respiratory: normal respiratory effort, lungs clear to auscultation Cardiovascular: RRR, no murmur, no edema Gastrointestinal (Abdomen): Inspection/Auscultation: normal bowel sounds Percussion/Palpation: + abdomen tender (epigastric region tender to light palpation) and abdomen soft Psychiatric: Orientation: alert and oriented x 3 Results & Data Results & Data Vital Signs (Past 12 Hours) Vital Signs Temp Pulse Resp BP BP Pulse Ox O2 Del Method 10/08/24 15:07 37.0 C 78 18 113/74 97 Room Air 10/08/24 07:55 36.9 C 96 H 16 124/72 98 Room Air Laboratory Results 10/08/24 10/08/24 10/08/24 Range/Units 09:57 09:56 05:58 WBC 4.30 L (4.8-10.8) K/ul RBC 3.76 L (4.20-5.40) M/uL Hgb 11.7 L (12.0-16.0) g/dl Hct 34.2 L (37.0-47.0) % MCV 91.0 (80.0-100.0) fL MCH 31.1 (25.0-34.0) pg MCHC 34.2 (32.0-36.0) g/dL RDW Std Deviation 40.4 (36.4-46.3) fL RDW Coeff of Zuleyma 12.1 (11.5-14.5) % Plt Count 135 (130-400) K/uL MPV 11.8 (9.4-12.4) fL Sodium 140 (136-145) mmol/L Potassium 3.8 (3.5-5.1) mmol/L Chloride 112 H (98-107) mmol/L Carbon Dioxide 20 L (21-32) mmol/L Anion Gap 8 (3-11) BUN 6 (6-23) mg/dl Creatinine 0.78 (0.6-1.2) mg/dl Est Cr Clr Drug Dosing 86.7 ml/min eGFR 97.19 BUN/Creatinine Ratio 7.7 L (10-20) Glucose 61 L (70-99(Fasting)) mg/dl POC Glucose 61 L* 69 L* (70-99) mg/dl Calcium 8.4 L (8.6-10.3) mg/dl Magnesium 1.7 (1.7-2.4) mg/dl Total Bilirubin 0.8 (0.2-1.0) mg/dl AST 24 (13-39) U/L ALT 31 (7-52) U/L Alkaline Phosphatase 112 H (34-104) U/L Total Protein 5.2 L (6.0-8.3) gm/dl Albumin 3.5 (3.4-5.0) gm/dl Globulin 1.7 L (2.5-4.0) gm/dl Albumin/Globulin Ratio 2.1 H (0.9-2) Whole Bld Vitamin B1 Pending PG Care Time/CCT Total # of Minutes Spent Total Time Spent with Patient: Total time spent is greater than 50% in coordination of care (as documented) at patient's floor/unit and/or counseling patient: Coding Level of Care Code 12698 SUB INP/OBS CARE MIN Diagnoses Abdominal pain R10.9 Abdominal location: unspecified location Syncope R55 Syncope type: unspecified Bipolar I disorder, single manic episode F30.9 GERD (gastroesophageal reflux disease) K21.9 (1) Abdominal pain Abdominal location: unspecified location Qualified Code(s): R10.9 - Unspecified abdominal pain (2) Syncope Syncope type: unspecified Qualified Code(s): R55 - Syncope and collapse
[2024-10-09 08:10] LABS: Hematocrit (blood only) 34.2 % (37.0-47.0); Hemoglobin 12.1 g/dl (12.0-16.0); Mean Corpuscular Hemoglobin 31.3 pg (25.0-34.0); Mean Corpuscular Hgb Conc 35.4 g/dL (32.0-36.0); Mean Corpuscular Volume 88.6 fL (80.0-100.0); Mean Platelet Volume 11.3 fL (9.4-12.4); Platelet Count 151 K/uL (130-400); RDW Coefficient of Variation 12.1 % (11.5-14.5); RDW Standard Deviation 38.8 fL (36.4-46.3); Red Blood Count 3.86 M/uL (4.20-5.40); White Blood Count 3.68 K/ul (4.8-10.8)
[2024-10-09 08:25] LABS: Albumin Globulin Ratio 1.9 (0.9-2); Albumin Level 3.6 gm/dl (3.4-5.0); BUN Creatinine Ratio 3.9 (10-20); Bilirubin,Total 0.7 mg/dl (0.2-1.0); Calcium 8.7 mg/dl (8.6-10.3); Creatinine Clr Calc Pharmacy 87.8 ml/min; Globulin 1.9 gm/dl (2.5-4.0); Potassium 4.1 mmol/L (3.5-5.1); Total Protein 5.5 gm/dl (6.0-8.3)
[2024-10-09] MEDS: ENOXAPARIN INJ 40 MG/0.4 ML SYR SQ SCH (08:25)
--- NOTE | 2024-10-09 10:22 | Fluoroscopy Report ---
FL barium swallow CLINICAL HISTORY: Difficulty swallowing. TECHNIQUE: Barium contrast and effervescent crystals were administered to the patient under fluorosco pic examination. Multiple images were obtained and submitted for review. FLUOROSCOPY TIME: 0.5 minute FLUOROSCOPY IMAGES: 6 Ka,r: 4.4 mGy COMPARISON: 09/04/2024 FINDINGS: There is no esophageal stricture or hiatal hernia. Gastroesophageal reflux was demonstrated during the exam. Findings of gastric sleeve are present. There is a stricture at the proximal aspect of the sleeve with holdup of contrast in the proximal stomach. Contrast eventually progresses throug h the sleeve. IMPRESSION: Stricture at the proximal aspect of the sleeve with holdup of contrast in the proximal st omach and gastroesophageal reflux. ACT 112: Negative or not required by law. The above report was generated using voice recognition software. It may contain grammatical, syntax o r spelling errors. Electronically signed by: Keyshawn Cole M.D. 10/09/2024 10:20 AM
--- NOTE | 2024-10-09 12:41 | Hospitalist Progress Note ---
<Statement entered by Sharee Davila MD - 10/09/24 19:29> Gladis did have esophagram today which showed a pouch above her gastric sleeve and minimal amount of contrast passing out of the pouch into the sleeve we consulted gastroenterology and they performed EGD, discussed with them, there was an erythematous pouch proximal to the gastric sleeve, no anatomical stricture present, they were able to advance the endoscopy to the duodenum. biopsies of the pouch were taken she remains intolerant of oral intake. we do not have a way to place feeding tube for her at this facility. I was able to discuss her care with her bariatric surgeon Dr. Villanueva at [facility] today. He saw her in late July or early August for similar symptoms he was able to perform a balloon dilation, she did respond well to Reglan at that time. recommends IV twice daily PPI which she is already on, recommended scheduled metoclopramide 10 mg IV every 6 hours which I ordered, if she is able to at least tolerate clear liquid diet she can discharge and follow- up with him as scheduled on 10/12 this . If she is not able to tolerate clears please call him back and we will arrange transfer to [facility]. There are therapeutic options for her - including endoscopy to see whether he can perform another balloon dilation, feeding tube placement, if necessary surgical conversion to gastric bypass. Date of Service October 09, 2024 Assessment & Plan (1) Abdominal pain: (2) GERD (gastroesophageal reflux disease): (3) Syncope: (4) Bipolar I disorder, single manic episode: Plan 43yo female with history of gastric sleeve surgery performed in December 2023 presenting with persistent abdominal pain, nausea and PO intolerance ongoing since August - with inability to keep down her medications or any food. She does have a followup with her Surgeon scheduled on 10/12/23. She was able to produce an EGD report on her phone from [facility] that was done on 09/22 showing a small hiatal hernia and esophagitis. #abdominal pain/hx of gastric sleeve/GERD Lipase WNL. LFTs were mildly elevated and now normal. CT A/P on admission without acute findings. Continue BID Pepcid 20mg IV, and Protonix 40mg IV BID. Scheduled zofran Carafate 1 gm po changed to PRN as pt was frequently refusing. prn reglan IV Pain control: IV tylenol and IV morphine B1 level pending Barium Swallow showing stricture at proximal aspect of sleeve with holdup of contrast, that did eventually pass through. --> GI consulted #Near syncope Possible episode CATH LAB TECH. Orthostatics were normal. No further events. Encourage adequate hydration. #Bipolar - continue Topamax 100mg po qPM, Escitalopram 20mg po, Continue Buspirone 15mg po BID - of note, pt has been refusing Dispo: continued inpatient stay DVT Proh: Lovenox Discussed case with Dr. Guzman, GI Admission and Anticipated Discharge Date Admission Date: October 09, 2024 Subjective Patient seen resting in bed. discussed results of study, agreeable to GI consult. States she has not been able to take solid foods since August she has infrequent bowel movements because of her limited PO intake Reports pain is not well controlled Review of Systems Review of Systems: All systems reviewed & are unremarkable except as noted in Subjective Physical Exam Physical Exam: General: NAD, VS as above, lying in bed Resp: normal respiratory effort, lungs clear to auscultation CV: RRR, no murmur, Abd: normal bowel sounds Neuro: A&O x3, Results & Data Results & Data Vital Signs (Past 12 Hours) Vital Signs Temp Pulse Resp BP Pulse Ox O2 Del Method 10/09/24 07:12 98.4 F 73 16 97/63 L 96 Room Air Laboratory Results cbc and chemistry reviewed Diagnostic Findings barium swallow study reviewed PG Care Time/CCT Total # of Minutes Spent Total Time Spent with Patient: Total time spent is greater than 50% in coordination of care (as documented) at patient's floor/unit and/or counseling patient: Coding Level of Care Code 42085 SUB INP/OBS CARE 3/50MIN Diagnoses Abdominal pain R10.9 Abdominal location: unspecified location GERD (gastroesophageal reflux disease) K21.9 Syncope R55 Syncope type: unspecified Bipolar I disorder, single manic episode F30.9 (1) Abdominal pain Abdominal location: unspecified location Qualified Code(s): R10.9 - Unspecified abdominal pain (3) Syncope Syncope type: unspecified Qualified Code(s): R55 - Syncope and collapse
--- NOTE | 2024-10-09 13:07 | Gastrointestinal Consultation ---
Date of Consultation October 09, 2024 Assessment & Plan (1) Abdominal pain: 43 year old female w/ history of Bipolar 1, anxiety/depression, metabolic syndrome, dyslipidemia, binge-eating disorder, obesity s/p gastric sleeve in [facility] re-admitted w/ abd pain, inability to tolerate oral intake. Previous work up including EGD by her outpatient surgical team negative, upper GI series negative but now barium swallow concerning for a stricture at the proximal aspect of the sleeve NPO EGD evaluation today pending NPO status We appreciate assistance in the management of any serological abnormality and corrections to include: hemoglobin >7, INR <2, platelets >50,000, potassium levels >3.5 but <5.3, and sodium levels within 5 points of the reference range prior to endoscopic evaluation. Thank you for allowing us to participate in the care of this patient. Please call with any acute changes, questions or concerns. Please see addendum below with additional recommendation from my supervising physician. I spent a total of 60 minutes on the date of service in review of patient's record, and previously obtained information in person and appropriate medical visit, discussion and education of plan, with patient and/or caregiver, placing orders for tests/referral/procedures as medically necessary and documentation of pertinent clinical information in patient's medical records for their visit today. Supervising Physician Co-Signing Physician Notes I personally saw and examined the patient. I have reviewed the chart and agree with the documentation provided by the JACQUARD LOOM CARD CHANGER including discussion about the assessment, treatment and plan. Briefly, 43 year old female w/ history of Bipolar 1, anxiety/depression, metabolic syndrome, dyslipidemia, binge-eating disorder, obesity s/p gastric sleeve in [facility] re-admitted w/ abd pain, inability to tolerate oral intake. She had a barium swallow today which showed proximal aspect of her sleeve. Contrast very slowly went through that area. Apparently she has had a negative EGD by her bariatric surgeon -surgery done 01/04 will look to see if there is a stricture and dilate if needed. N.p.o. not on anticoagulants plan for EGD today. History of Present Illness Reason for Consultation: stricture on barium swallow Requesting Physician: Sharee Davila MD Attending Physician: Sharee Davila MD History of Present Illness 43 year old female w/ history of Bipolar 1, anxiety/depression, metabolic syndrome, dyslipidemia, binge-eating disorder, obesity s/p gastric sleeve in [facility] [place] re-admitted w/ abd pain, inability to tolerate oral intake - GI was asked to evaluate for abnormal barium swallow. Pt was seen and evaluated, chart reviewed. Suggests since she was inpatient here last, symptoms worsened. No longer able to tolerate even liquids. Daily nausea/vomiting after attempted oral intake. Suggest ongoing weight loss 15+ lbs over the last month. Barium swallow 2024: Stricture at the proximal aspect of the sleeve with holdup of contrast in the proximal stomach and gastroesophageal reflux. UGI series 2023:Normal passage of contrast is seen. There is a small amount of reflux. Postsurgical changes of gastric sleeve are noted. CTAP 2023: Evidence of gastric sleeve operation with no related collections Surgical annabelle are seen along the greater curvature of stomach. EGD 2023: per patient at [facility] a few months ago, unremarkable Allergies Allergy/AdvReac Type Severity Reaction Status Date / Time Fish Containing Products Allergy Intermediate Rash Verified 10/06/24 20:37 shellfish derived Allergy Verified 10/06/24 20:37 Home Medications Medication Instructions Recorded Confirmed Type cyanocobalamin (vitamin B-12) 1,000 mcg PO QAM 05/24/18 10/06/24 History 1,000 mcg capsule cholecalciferol (vitamin D3) 50 50 mcg PO QAM 02/11/22 10/06/24 History mcg (2,000 unit) capsule (Vitamin D3) buspirone 15 mg tablet 15 mg PO BID 07/15/22 10/06/24 History escitalopram oxalate 20 mg tablet 20 mg PO QAM 90 days #90 tabs 03/28/24 10/06/24 Rx (Lexapro) erenumab-aooe 140 mg/mL 140 mg subcut MONTHLY 08/28/24 10/06/24 History subcutaneous auto-injector (Aimovig Autoinjector) topiramate 100 mg tablet (Topamax) 100 mg PO QPM 08/28/24 10/06/24 History esomeprazole magnesium 40 mg 40 mg PO BID #60 caps 09/04/24 10/06/24 Rx capsule,delayed release (Nexium) ondansetron 8 mg disintegrating 8 mg PO Q8H PRN nausea and 09/04/24 10/06/24 Rx tablet vomiting #30 tabs prochlorperazine maleate 5 mg 5 mg PO Q6H PRN nausea and 09/04/24 10/06/24 Rx tablet vomiting #30 tabs sucralfate 100 mg/mL oral 1 g (10 mL) PO QID #420 mL 09/04/24 10/06/24 Rx suspension pantoprazole 40 mg tablet,delayed 40 mg PO BID 10/06/24 10/06/24 History release Patient History Medical History Hypertriglyceridemia Chiari malformation s/p decompression (~2014) No issues since per 05/12/[address] "There has been prior posterior suboccipital decompression. There is persistent caudal positioning of the cerebellar tonsils consistent with Chiari I malformation. 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 no financial institution vice president no issues with MV on 12/2022 ECHO Hx of Lyme disease 2015 - antibiotic completed Hx of ectopic Anxiety and depression Morbid obesity Pre-diabetes s/p gastric sleeve procedure - no longer an issue GERD (gastroesophageal reflux disease) controlled, stable per pt Post traumatic stress disorder Deep vein thrombosis Around 2006 (LUE- unknown etiology) Headache h/o post spinal tap PAUL and generalized weakness in 2018 per 09/2020 [facility] neuro note Surgical History Hx laparoscopic cholecystectomy Status post sleeve gastrectomy 12/22/23 @ [facility] Myriam Villanueva Hx of hysterectomy History of carpal tunnel release Right History of MRI Right elbow MRI (02/13/22): MAC at [facility]. No issues noted per post-op anesthesia progress note. History of surgery Chiari Malformation repair (~2014; [facility]) Hx of foot surgery R/L repair of plantar fasciitis and removal of heel spurs History of laparoscopy History of tooth extraction Family History Grandmother (Paternal) Family history of diabetes mellitus Family/Other Chiari malformation Venous thrombosis Grandmother Stroke Mother Hypothyroidism Father Mitral valve prolapse Grandmother (Maternal) Breast cancer Denies family history of Ovarian cancer Colorectal cancer Social History Smoking Status: Never smoker Second Hand Exposure: No; Do You Dip or Chew Tobacco: No; Tobacco Cessation Education Requested by Patient: No Hx Alcohol Use: No Hx Substance Use: No Preferred Language: Romanian Communication Ability: Effective Fabricator Special Items Required: No Beliefs That Will Affect Care: None marital status: Current Living Situation: Family Current Living Situation Comment: lives with the and children current occupational status: employed 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 Physical Exam Constitutional: WD/WN, vitals as above Respiratory: normal respiratory effort, lungs clear to auscultation Cardiovascular: Rate/Rhythm: regular rate and regular rhythm Gastrointestinal (Abdomen): Inspection/Auscultation: normal bowel sounds Percussion/Palpation: + abdomen tender and abdomen soft; no guarding and abdomen not rigid Skin: no rashes, warm and dry Results & Data Vital Signs (Past 12 Hours) Vital Signs Temp Pulse Resp BP Pulse Ox O2 Del Method 10/09/24 07:12 98.4 F 73 16 97/63 L 96 Room Air Laboratory Results 10/09/24 10/08/24 Range/Units 07:35 18:13 WBC 3.68 L (4.8-10.8) K/ul RBC 3.86 L (4.20-5.40) M/uL Hgb 12.1 (12.0-16.0) g/dl Hct 34.2 L (37.0-47.0) % MCV 88.6 (80.0-100.0) fL MCH 31.3 (25.0-34.0) pg MCHC 35.4 (32.0-36.0) g/dL RDW Std Deviation 38.8 (36.4-46.3) fL RDW Coeff of Zuleyma 12.1 (11.5-14.5) % Plt Count 151 (130-400) K/uL MPV 11.3 (9.4-12.4) fL Sodium 139 (136-145) mmol/L Potassium 4.1 (3.5-5.1) mmol/L Chloride 109 H (98-107) mmol/L Carbon Dioxide 26 (21-32) mmol/L Anion Gap 4 (3-11) BUN 3 L (6-23) mg/dl Creatinine 0.77 (0.6-1.2) mg/dl Est Cr Clr Drug Dosing 87.8 ml/min eGFR 98.71 BUN/Creatinine Ratio 3.9 L (10-20) Glucose 101 H (70-99(Fasting)) mg/dl POC Glucose 97 (70-99) mg/dl Calcium 8.7 (8.6-10.3) mg/dl Total Bilirubin 0.7 (0.2-1.0) mg/dl AST 15 (13-39) U/L ALT 22 (7-52) U/L Alkaline Phosphatase 103 (34-104) U/L Total Protein 5.5 L (6.0-8.3) gm/dl Albumin 3.6 (3.4-5.0) gm/dl Globulin 1.9 L (2.5-4.0) gm/dl Albumin/Globulin Ratio 1.9 (0.9-2) PG Care Time/CCT Total # of Minutes Spent Total Time Spent with Patient: Total time spent is greater than 50% in coordination of care (as documented) at patient's floor/unit and/or counseling patient: Coding Level of Care Code 04921 IN/OBS CONSULT LVL 4,60M Diagnoses Abdominal pain R10.9 Abdominal location: unspecified location (1) Abdominal pain Abdominal location: unspecified location Qualified Code(s): R10.9 - Unspecified abdominal pain
[2024-10-09] MEDS: INFLUENZA VACC TS2024-25(6m+)/PF (IIV3) 0.5mL Syr IM ONE (13:22)
[2024-10-09] MEDS: SODIUM CHLORIDE 0.9% 500 ML IV SCH (13:41)
--- NOTE | 2024-10-09 14:10 | Anesthesiology Consultation ---
Date of Service October 09, 2024 Assessment & Plan ASA ASA2 Proposed Anesthesia Anesthesia Type: MAC Risk / Benefits Reviewed With: PT / POA / Parent / Guardian, Accepts Plan and Informed Consent Obtained History Surgery Operation Date: 10/09/24 16:30 Proposed Procedures p Esophagogastroduodenoscopy Thomas Guzman MD Height/Weight Height: 5 ft 2 in Weight: 70.9 kg Allergies Allergy/AdvReac Type Severity Reaction Status Date / Time Fish Containing Products Allergy Intermediate Rash Verified 10/06/24 20:37 shellfish derived Allergy Verified 10/06/24 20:37 Medications Home Medications Medication Instructions Recorded Confirmed Last Taken cyanocobalamin (vitamin B-12) 1,000 mcg PO QAM 05/24/18 10/06/24 10/06/24 08:00 1,000 mcg capsule cholecalciferol (vitamin D3) 50 50 mcg PO QAM 02/11/22 10/06/24 10/06/24 08:00 mcg (2,000 unit) capsule (Vitamin D3) buspirone 15 mg tablet 15 mg PO BID 07/15/22 10/06/24 10/06/24 08:00 escitalopram oxalate 20 mg tablet 20 mg PO QAM 90 days #90 tabs 03/28/24 10/06/24 10/06/24 08:00 (Lexapro) erenumab-aooe 140 mg/mL 140 mg subcut MONTHLY 08/28/24 10/06/24 10/04/24 08:00 subcutaneous auto-injector (Aimovig Autoinjector) topiramate 100 mg tablet (Topamax) 100 mg PO QPM 08/28/24 10/06/24 10/06/24 08:00 esomeprazole magnesium 40 mg 40 mg PO BID #60 caps 09/04/24 10/06/24 10/06/24 08:00 capsule,delayed release (Nexium) ondansetron 8 mg disintegrating 8 mg PO Q8H PRN nausea and 09/04/24 10/06/24 Unknown tablet vomiting #30 tabs prochlorperazine maleate 5 mg 5 mg PO Q6H PRN nausea and 09/04/24 10/06/24 Unknown tablet vomiting #30 tabs sucralfate 100 mg/mL oral 1 g (10 mL) PO QID #420 mL 09/04/24 10/06/24 Unknown suspension pantoprazole 40 mg tablet,delayed 40 mg PO BID 10/06/24 10/06/24 10/06/24 08:00 release Active Medications Generic Name Dose Route Start Last Admin Trade Name Freq PRN Reason Stop Dose Admin Buspirone HCl 15 mg 10/06/24 23:37 10/09/24 08:25 Buspirone 15 Mg Tab PO 11/05/24 23:36 Not Given BID RADHA Enoxaparin Sodium 40 mg 10/09/24 09:00 10/09/24 08:25 Enoxaparin Inj 40 Mg/0.4 Ml Syr SQ 11/08/24 08:59 Not Given QAM RADHA Escitalopram Oxalate 20 mg 10/07/24 09:00 10/09/24 08:25 Escitalopram Oxalate 20 Mg Tab PO 11/06/24 08:59 Not Given QAM RADHA Pantoprazole Sodium 40 mg in 10 mls @ 5 mls/min 10/06/24 23:37 10/09/24 08:25 Protonix IV 11/05/24 23:36 5 mls/min BID RADHA Administration Famotidine 20 mg in 5 mls @ 2.5 mls/min 10/06/24 23:37 10/09/24 08:24 Pepcid 20mg Iv Push IV 11/05/24 23:36 2.5 mls/min Q12H RADHA Administration Acetaminophen 1,000 mg in 100 mls @ 400 mls/hr 10/06/24 23:37 10/08/24 11:50 Ofirmev IV 10/09/24 23:36 Infused Q8H PRN Infusion Mild Pain (Scale 1, 2, 3) Sodium Chloride 500 mls @ 15 mls/hr 10/09/24 07:30 10/09/24 13:41 Nss IV 10/10/24 07:29 15 mls/hr .Q24H RADHA Administration Lorazepam 0.5 mg 10/07/24 16:39 10/07/24 17:39 Lorazepam 2 Mg/1 Ml Vial IV 11/06/24 16:38 0.5 mg Q8H PRN Administration Anxiety/Agitation Metoclopramide HCl 5 mg 10/07/24 09:06 10/07/24 09:40 Metoclopramide Hcl Inj 5 Mg/Ml 2 Ml Vial IV 11/06/24 09:14 5 mg Q6H PRN Administration Nausea And Vomiting Morphine Sulfate 2 mg 10/06/24 23:37 10/08/24 09:17 Morphine Sulfate 2 Mg/Ml Carp IV 10/20/24 23:36 2 mg Q3H PRN Administration Pain (1,2,3,4,5) & Pre PT Morphine Sulfate 4 mg 10/06/24 23:37 10/09/24 13:13 Morphine Sulfate 4 Mg/Ml 1 Ml Carp\\Vial IV 10/20/24 23:36 4 mg Q3H PRN Administration Pain (6,7,8,9,10) Ondansetron HCl 8 mg 10/08/24 14:00 10/09/24 05:55 Ondansetron 8mg Od Tab PO 11/07/24 13:59 8 mg Q8H RADHA Administration Topiramate 100 mg 10/07/24 21:00 10/08/24 20:39 Topiramate 100 Mg Tab PO 11/06/24 20:59 Not Given QPM RADHA NPO Date Last Intake of Fluids: 10/09/24 Time Last Intake of Fluids: 09:30 Date Last Intake of Solids: 10/08/24 Time Last Intake of Solids: 17:30 Past Medical History Medical History Hypertriglyceridemia Chiari malformation s/p decompression (~2014) No issues since per 05/12/[address] "There has been prior posterior suboccipital decompression. There is persistent caudal positioning of the cerebellar tonsils consistent with Chiari I malformation. 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 no coil maker no issues with MV on 12/2022 ECHO Hx of Lyme disease 2014 - antibiotic completed Hx of ectopic Anxiety and depression Morbid obesity Pre-diabetes s/p gastric sleeve procedure - no longer an issue GERD (gastroesophageal reflux disease) controlled, stable per pt Post traumatic stress disorder Deep vein thrombosis Around 2006 (LUE- unknown etiology) Headache h/o post spinal tap PAUL and generalized weakness in 2018 per 09/2020 [facility] neuro note Exercise / Class Metabolic Activity II 4-5 Yardwork/Stairs/Walk up hill Past Family History Family History Grandmother (Paternal) Family history of diabetes mellitus Family/Other Chiari malformation Venous thrombosis Grandmother Stroke Mother Hypothyroidism Father Mitral valve prolapse Grandmother (Maternal) Breast cancer Denies family history of Ovarian cancer Colorectal cancer Past Surgical History Surgical History Hx laparoscopic cholecystectomy Status post sleeve gastrectomy 12/22/23 @ [facility] Myriam Villanueva Hx of hysterectomy History of carpal tunnel release Right History of MRI Right elbow MRI (02/13/22): MAC at [facility]. No issues noted per post-op anesthesia progress note. History of surgery Chiari Malformation repair (~2014; [facility]) Hx of foot surgery R/L repair of plantar fasciitis and removal of heel spurs History of laparoscopy History of tooth extraction Past Anesthesia History No Hx of Anesthesia Complications and No Family Hx of Anesthesia Complications History of PONV No Hx of PONV and No Hx of Motion Sickness Social History Smoking Status: Never smoker Do You Dip or Chew Tobacco: No Hx Alcohol Use: No Hx Substance Use: No substance use type: does not use Physical Exam Vital Signs Last Vital Signs Temp 37.1 C 10/09/24 13:32 Pulse 65 10/09/24 13:32 Resp 16 10/09/24 13:32 BP 111/71 10/09/24 13:32 Pulse Ox 97 10/09/24 13:32 O2 Del Method Room Air 10/09/24 13:32 Constitutional no acute distress ENMT Mouth: no dentition abnormality Thyromental Distance: > or= 3.5 Finger Breadths Mallampati Class: II Neck normal visual inspection Respiratory normal respiratory effort; no respiratory distress Auscultation: lungs clear to auscultation bilaterally Cardiovascular Rate/Rhythm: regular rate and regular rhythm Heart Sounds: no murmur Musculoskeletal Spine: normal cervical ROM Psychiatric Orientation: alert and oriented x 3 Testing Laboratory Results 10/09/24 07:35 10/09/24 07:35 PT 12.8 Seconds (9.0-12.0) H 10/06/24 18:30 INR 1.2 (0.9-1.1) H 10/06/24 18:30 APTT 32 Seconds (21-31) H 10/06/24 18:30 Urine Color Yellow 10/07/24 05:25 Urine Appearance Clear (Clear) 10/07/24 05:25 Urine pH 5.5 (4.5-7.5) 10/07/24 05:25 Ur Specific [place] > 1.045 (1.000-1.030) H 10/07/24 05:25 Urine Protein Negative (Negative) 10/07/24 05:25 Urine Glucose (UA) Negative (Negative) 10/07/24 05:25 Urine Ketones 2+ (Negative) H 10/07/24 05:25 Urine Nitrite Negative (Negative) 10/07/24 05:25 Ur Leukocyte Esterase Negative (Negative) 10/07/24 05:25 Day of Procedure Evaluation. Date of Surgery October 09, 2024 Height/Weight Height: 5 ft 2 in Weight: 70.9 kg Vital Signs Last Vital Signs Temp 37.1 C 10/09/24 13:32 Pulse 65 10/09/24 13:32 Resp 16 10/09/24 13:32 BP 111/71 10/09/24 13:32 Pulse Ox 97 10/09/24 13:32 O2 Del Method Room Air 10/09/24 13:32 Allergies Allergy/AdvReac Type Severity Reaction Status Date / Time Fish Containing Products Allergy Intermediate Rash Verified 10/06/24 20:37 shellfish derived Allergy Verified 10/06/24 20:37 Medications Home Medications Medication Instructions Recorded Confirmed Last Taken cyanocobalamin (vitamin B-12) 1,000 mcg PO QAM 05/24/18 10/06/24 10/06/24 08:00 1,000 mcg capsule cholecalciferol (vitamin D3) 50 50 mcg PO QAM 02/11/22 10/06/24 10/06/24 08:00 mcg (2,000 unit) capsule (Vitamin D3) buspirone 15 mg tablet 15 mg PO BID 07/15/22 10/06/24 10/06/24 08:00 escitalopram oxalate 20 mg tablet 20 mg PO QAM 90 days #90 tabs 03/28/24 10/06/24 10/06/24 08:00 (Lexapro) erenumab-aooe 140 mg/mL 140 mg subcut MONTHLY 08/28/24 10/06/24 10/04/24 08:00 subcutaneous auto-injector (Aimovig Autoinjector) topiramate 100 mg tablet (Topamax) 100 mg PO QPM 08/28/24 10/06/24 10/06/24 08:00 esomeprazole magnesium 40 mg 40 mg PO BID #60 caps 09/04/24 10/06/24 10/06/24 08:00 capsule,delayed release (Nexium) ondansetron 8 mg disintegrating 8 mg PO Q8H PRN nausea and 09/04/24 10/06/24 Unknown tablet vomiting #30 tabs prochlorperazine maleate 5 mg 5 mg PO Q6H PRN nausea and 09/04/24 10/06/24 Unknown tablet vomiting #30 tabs sucralfate 100 mg/mL oral 1 g (10 mL) PO QID #420 mL 09/04/24 10/06/24 Unknown suspension pantoprazole 40 mg tablet,delayed 40 mg PO BID 10/06/24 10/06/24 10/06/24 08:00 release Active Medications Generic Name Dose Route Start Last Admin Trade Name Freq PRN Reason Stop Dose Admin Buspirone HCl 15 mg 10/06/24 23:37 10/09/24 08:25 Buspirone 15 Mg Tab PO 11/05/24 23:36 Not Given BID RADHA Enoxaparin Sodium 40 mg 10/09/24 09:00 10/09/24 08:25 Enoxaparin Inj 40 Mg/0.4 Ml Syr SQ 11/08/24 08:59 Not Given QAM RADHA Escitalopram Oxalate 20 mg 10/07/24 09:00 10/09/24 08:25 Escitalopram Oxalate 20 Mg Tab PO 11/06/24 08:59 Not Given QAM RADHA Pantoprazole Sodium 40 mg in 10 mls @ 5 mls/min 10/06/24 23:37 10/09/24 08:25 Protonix IV 11/05/24 23:36 5 mls/min BID RADHA Administration Famotidine 20 mg in 5 mls @ 2.5 mls/min 10/06/24 23:37 10/09/24 08:24 Pepcid 20mg Iv Push IV 11/05/24 23:36 2.5 mls/min Q12H RADHA Administration Acetaminophen 1,000 mg in 100 mls @ 400 mls/hr 10/06/24 23:37 10/08/24 11:50 Ofirmev IV 10/09/24 23:36 Infused Q8H PRN Infusion Mild Pain (Scale 1, 2, 3) Sodium Chloride 500 mls @ 15 mls/hr 10/09/24 07:30 10/09/24 13:41 Nss IV 10/10/24 07:29 15 mls/hr .Q24H RADHA Administration Lorazepam 0.5 mg 10/07/24 16:39 10/07/24 17:39 Lorazepam 2 Mg/1 Ml Vial IV 11/06/24 16:38 0.5 mg Q8H PRN Administration Anxiety/Agitation Metoclopramide HCl 5 mg 10/07/24 09:06 10/07/24 09:40 Metoclopramide Hcl Inj 5 Mg/Ml 2 Ml Vial IV 11/06/24 09:14 5 mg Q6H PRN Administration Nausea And Vomiting Morphine Sulfate 2 mg 10/06/24 23:37 10/08/24 09:17 Morphine Sulfate 2 Mg/Ml Carp IV 10/20/24 23:36 2 mg Q3H PRN Administration Pain (1,2,3,4,5) & Pre PT Morphine Sulfate 4 mg 10/06/24 23:37 10/09/24 13:13 Morphine Sulfate 4 Mg/Ml 1 Ml Carp\\Vial IV 10/20/24 23:36 4 mg Q3H PRN Administration Pain (6,7,8,9,10) Ondansetron HCl 8 mg 10/08/24 14:00 10/09/24 05:55 Ondansetron 8mg Od Tab PO 11/07/24 13:59 8 mg Q8H RADHA Administration Topiramate 100 mg 10/07/24 21:00 10/08/24 20:39 Topiramate 100 Mg Tab PO 11/06/24 20:59 Not Given QPM RADHA Past Anesthesia History No Hx of Anesthesia Complications and No Family Hx of Anesthesia Complications History of PONV No Hx of PONV and No Hx of Motion Sickness NPO Date Last Intake of Fluids: 10/09/24 Time Last Intake of Fluids: 09:30 Date Last Intake of Solids: 10/08/24 Time Last Intake of Solids: 17:30 Home Medications Home Medications Medication Instructions Recorded Confirmed Last Taken cyanocobalamin (vitamin B-12) 1,000 mcg PO QAM 05/24/18 10/06/24 10/06/24 08:00 1,000 mcg capsule cholecalciferol (vitamin D3) 50 50 mcg PO QAM 02/11/22 10/06/24 10/06/24 08:00 mcg (2,000 unit) capsule (Vitamin D3) buspirone 15 mg tablet 15 mg PO BID 07/15/22 10/06/24 10/06/24 08:00 escitalopram oxalate 20 mg tablet 20 mg PO QAM 90 days #90 tabs 03/28/24 10/06/24 10/06/24 08:00 (Lexapro) erenumab-aooe 140 mg/mL 140 mg subcut MONTHLY 08/28/24 10/06/24 10/04/24 08:00 subcutaneous auto-injector (Aimovig Autoinjector) topiramate 100 mg tablet (Topamax) 100 mg PO QPM 08/28/24 10/06/24 10/06/24 08:00 esomeprazole magnesium 40 mg 40 mg PO BID #60 caps 09/04/24 10/06/24 10/06/24 08:00 capsule,delayed release (Nexium) ondansetron 8 mg disintegrating 8 mg PO Q8H PRN nausea and 09/04/24 10/06/24 Unknown tablet vomiting #30 tabs prochlorperazine maleate 5 mg 5 mg PO Q6H PRN nausea and 09/04/24 10/06/24 Unknown tablet vomiting #30 tabs sucralfate 100 mg/mL oral 1 g (10 mL) PO QID #420 mL 09/04/24 10/06/24 Unknown suspension pantoprazole 40 mg tablet,delayed 40 mg PO BID 10/06/24 10/06/24 10/06/24 08:00 release Active Medications Generic Name Dose Route Start Last Admin Trade Name Freq PRN Reason Stop Dose Admin Buspirone HCl 15 mg 10/06/24 23:37 10/09/24 08:25 Buspirone 15 Mg Tab PO 11/05/24 23:36 Not Given BID RADHA Enoxaparin Sodium 40 mg 10/09/24 09:00 10/09/24 08:25 Enoxaparin Inj 40 Mg/0.4 Ml Syr SQ 11/08/24 08:59 Not Given QAM RADHA Escitalopram Oxalate 20 mg 10/07/24 09:00 10/09/24 08:25 Escitalopram Oxalate 20 Mg Tab PO 11/06/24 08:59 Not Given QAM RADHA Pantoprazole Sodium 40 mg in 10 mls @ 5 mls/min 10/06/24 23:37 10/09/24 08:25 Protonix IV 11/05/24 23:36 5 mls/min BID RADHA Administration Famotidine 20 mg in 5 mls @ 2.5 mls/min 10/06/24 23:37 10/09/24 08:24 Pepcid 20mg Iv Push IV 11/05/24 23:36 2.5 mls/min Q12H RADHA Administration Acetaminophen 1,000 mg in 100 mls @ 400 mls/hr 10/06/24 23:37 10/08/24 11:50 Ofirmev IV 10/09/24 23:36 Infused Q8H PRN Infusion Mild Pain (Scale 1, 2, 3) Sodium Chloride 500 mls @ 15 mls/hr 10/09/24 07:30 10/09/24 13:41 Nss IV 10/10/24 07:29 15 mls/hr .Q24H RADHA Administration Lorazepam 0.5 mg 10/07/24 16:39 10/07/24 17:39 Lorazepam 2 Mg/1 Ml Vial IV 11/06/24 16:38 0.5 mg Q8H PRN Administration Anxiety/Agitation Metoclopramide HCl 5 mg 10/07/24 09:06 10/07/24 09:40 Metoclopramide Hcl Inj 5 Mg/Ml 2 Ml Vial IV 11/06/24 09:14 5 mg Q6H PRN Administration Nausea And Vomiting Morphine Sulfate 2 mg 10/06/24 23:37 10/08/24 09:17 Morphine Sulfate 2 Mg/Ml Carp IV 10/20/24 23:36 2 mg Q3H PRN Administration Pain (1,2,3,4,5) & Pre PT Morphine Sulfate 4 mg 10/06/24 23:37 10/09/24 13:13 Morphine Sulfate 4 Mg/Ml 1 Ml Carp\\Vial IV 10/20/24 23:36 4 mg Q3H PRN Administration Pain (6,7,8,9,10) Ondansetron HCl 8 mg 10/08/24 14:00 10/09/24 05:55 Ondansetron 8mg Od Tab PO 11/07/24 13:59 8 mg Q8H RADHA Administration Topiramate 100 mg 10/07/24 21:00 10/08/24 20:39 Topiramate 100 Mg Tab PO 11/06/24 20:59 Not Given QPM [facility] Exercise / Class Metabolic Activity Metabolic Activity: II 4-5 Yardwork/Stairs/Walk up hill Physical Exam Constitutional: no acute distress Mouth: no dentition abnormality Thyromental Distance: > or= 3.5 Finger Breadths Mallampati Class: II Neck: + visual inspection normal Respiratory: + respiratory effort normal and + clear to auscultation bilaterally; no respiratory distress Cardiovascular: + regular rate and + regular rhythm; no murmur Musculoskeletal: no limited cervical ROM Psychiatric: + alert and + oriented x 3 ASA ASA2 Proposed Anesthesia Proposed Anesthesia: MAC Risk / Benefits Reviewed With: PT / POA / Parent / Guardian, Accepts Plan and Informed Consent Obtained
--- NOTE | 2024-10-09 14:45 | GI REPORT ---
[facility] Patient: FAMILIA YSUUF : 1980 Sex at : Female Age: 43 Years Procedure: Upper GI endoscopy Date: 10/09/2024 Attending Physician: Dwayne Guzman MD Referring MD: Referred Self; Sharee Davila Md Indications: - Dysphagia - Nausea with vomiting - Weight loss Medications: - Monitored Anesthesia Care Complications: - No immediate complications. Estimated Blood Loss: - Estimated blood loss: None. Procedure: - Prior to the procedure, a History and Physical was performed, and patient medications and allergies were reviewed. The patient's tolerance of previous anesthesia was also reviewed. The risks and benefits of the procedure and the sedation options and risks were discussed with the patient. All questions were answered, and informed consent was obtained. Prior Anticoagulants: The patient has taken no anticoagulant or antiplatelet agents. ASA Grade Assessment: III - A patient with severe systemic disease. After reviewing the risks and benefits, the patient was deemed in satisfactory condition to undergo the procedure. - The egd scope was introduced through the mouth and advanced to the third part of the duodenum. - The upper GI endoscopy was accomplished without difficulty. - The patient tolerated the procedure well. Findings: - The examined esophagus was normal. - Evidence of a sleeve gastrectomy was found in the gastric body. This was characterized by erythema and edema. Biopsies were taken with a cold forceps for histology. Estimated blood loss was minimal. No stricture noted in proximal sleeve, scope follows easily into the taye stomach. However, an opening proximally of bypassed stomach noted at GE junction. I am wondering if food is collecting here and causing nausea and vomiting. Nothing to dilate. - The examined duodenum was normal. Impression: - Normal esophagus. - A sleeve gastrectomy was found, characterized by erythema and edema. Biopsied. - No stricture noted in proximal sleeve, scope follows easily into the taye stomach. However, an opening proximally of bypassed stomach noted at GE junction. I am wondering if food is collecting here and causing nausea and vomiting. Nothing to dilate. - Normal examined duodenum. Recommendation: - Resume previous diet and clear liquid diet. - Continue present medications. - Await pathology results. - Return to primary care physician as previously scheduled. - Patient has a contact number available for emergencies. The signs and symptoms of potential delayed complications were discussed with the patient. Return to normal activities tomorrow. Written discharge instructions were provided to the patient. - Discharge patient to home (ambulatory). - Resume previous diet. - Continue present medications. - Await pathology results. - Return to primary care physician as previously scheduled. - Patient has a contact number available for emergencies. The signs and symptoms of potential delayed complications were discussed with the patient. Return to normal activities tomorrow. Written discharge instructions were provided to the patient. - Unclear reason for significant dysphagia and weight loss. Cannot tolerate liquids even. Appears to have 2nd tract or reservoir just distal to GE junction where food appears to be collecting. - At this point, she needs to go back to bariatric surgeon for consideration of gastric bypass revision. Procedure Code(s): - 00719, Esophagogastroduodenoscopy, flexible, transoral; with biopsy, single or multiple Diagnosis Code(s): - R13.10, Dysphagia, unspecified - R11.2, Nausea with vomiting, unspecified - R63.4, Abnormal weight loss - Z98.84, Bariatric surgery status CPT(R) - 2022 copyright [employer]. All Rights Reserved. The CPT codes, CCI edits and ICD codes generated are intended as suggestions and were generated based on input data. These codes are preliminary and upon surgical coder review may be revised to meet current compliance and payer requirements. The provider is responsible for the final determination of appropriate codes, and modifiers. Dwayne Guzman MD This document has been electronically signed. Note Initiated:10/09/2024 Note Completed:10/09/2024 2:44 PM \\[email or web address]\Results\LIVE\[id number]
[2024-10-09] MEDS: ONDANSETRON INJ 2 MG/ML 2 ML VIAL ONE (15:20)
[2024-10-09] MEDS: LIDOCAINE 2% 2 ML VIAL/AMP(20MG/ML) INFIL ONE (15:20)
[2024-10-09] MEDS: GLYCOPYRROLATE 0.2 MG/ML VIAL ONE (15:20)
[2024-10-09] MEDS: PROPOFOL IV EMULSION 10 MG/ML 20 ML VIAL IV ONE (15:21)
[2024-10-09] MEDS: METOCLOPRAMIDE HCL INJ 5 MG/ML 2 ML VIAL IV SCH (16:55)
[2024-10-09 19:17] VITALS: RESP 16
--- NOTE | 2024-10-10 09:00 | Gastroenterology Progress Note ---
Date of Service October 10, 2024 Assessment & Plan (1) Abdominal pain: Plan: 43 year old female w/ history of Bipolar 1, anxiety/depression, metabolic syndrome, dyslipidemia, binge-eating disorder, obesity s/p gastric sleeve in [facility] re-admitted w/ abd pain, inability to tolerate oral intake. Previous work up including EGD by her outpatient surgical team negative, upper GI series negative but now presenting w/ ongoing symptoms. Repeat barium swallow concerning for a stricture at the proximal aspect of the sleeve. S/P EGD w/o evidence of stricture but Appears to have a tract or reservoir distal to GE junction where food appears to be collecting. - Refer to her [facility] Bariatric Surgical team to consider revision vs gastric bypass - Continue supportive measures Recall GI as needed. I spent a total of 40 minutes on the date of service in review of patient's record, and previously obtained information in person and appropriate medical visit, discussion and education of plan, with patient and/or caregiver, placing orders for tests/referral/procedures as medically necessary and documentation of pertinent clinical information in patient's medical records for their visit today. Admission and Anticipated Discharge Date Admission Date: October 09, 2024 Supervising Physician Co-Signing Physician Notes I personally saw and examined the patient. I have reviewed the chart and agree with the documentation provided by the MANAGER PE including discussion about the assessment, treatment and plan. Unable to tolerate a liquid tray. Had nausea and vomiting pretty immediately afterwards. EGD was reviewed with patient and . She appears to have a reservoir or fistulous track at the GE junction where the old bypassed stomach appears to be and this was aware a significant amount of contrast was noted. I think she needs to follow-up with her bariatric surgeon in [place] and we are planning for transfer there. Subjective Pt was seen and evaluated, chart reviewed. Discussed results of EGD yesterday. Questions answered. No findings amendable to endoscopic intervention. However, there was opening proximally of bypassed stomach noted at GE junction. She attempted a bite of each liquid option on her tray this morning and unfortunately did not tolerate this. EGD 2024: Normal esophagus. - A sleeve gastrectomy was found, characterized by erythema and edema. Biopsied. - No stricture noted in proximal sleeve, scope follows easily into the taye stomach. However, an opening proximally of bypassed stomach noted at GE junction. I am wondering if food is collecting here and causing nausea and vomiting. Nothing to dilate. - Normal examined duodenum. Bx 2024: FINAL DIAGNOSIS Stomach, body, biopsy: - Gastric mucosa with no diagnostic abnormality Review of Systems Review of Systems: All other findings negative except as noted in HPI. Physical Exam Constitutional: WD/WN, vitals as above Respiratory: normal respiratory effort Gastrointestinal (Abdomen): normal bowel sounds, soft, nontender, no hepatosplenomegaly Skin: no rashes, warm and dry Results & Data Results & Data Vital Signs (Past 12 Hours) Vital Signs Temp Pulse Resp BP Pulse Ox O2 Del Method 10/10/24 07:01 98.6 F 90 16 100/60 97 Room Air PG Care Time/CCT Total # of Minutes Spent Total Time Spent with Patient: Total time spent is greater than 50% in coordination of care (as documented) at patient's floor/unit and/or counseling patient: Coding Level of Care Code 31043 SUB INP/OBS CARE 2/35MIN Diagnoses Abdominal pain R10.9 Abdominal location: unspecified location (1) Abdominal pain Abdominal location: unspecified location Qualified Code(s): R10.9 - Unspecified abdominal pain
[2024-10-10] MEDS: D5W AND 1/2NSS 1,000 ML IV SCH (11:15)
--- NOTE | 2024-10-10 15:58 | Hospitalist Progress Note ---
Date of Service October 10, 2024 Assessment & Plan (1) Abdominal pain: (2) GERD (gastroesophageal reflux disease): (3) Syncope: (4) Bipolar I disorder, single manic episode: Plan 43yo female with history of gastric sleeve surgery performed in December 2023 presenting with persistent abdominal pain, nausea and PO intolerance ongoing since August - with inability to keep down her medications or any food. She does have a followup with her Surgeon scheduled on 10/12/23. She was able to produce an EGD report on her phone from [facility] that was done on 09/22 showing a small hiatal hernia and esophagitis. CT A/P on admission without acute findings. Had Barium swallow showing stricture at proximal aspect of sleeve with hold up of contrast. GI was consulted to perform EGD with possible dilation, however no stricture. #abdominal pain/hx of gastric sleeve/GERD Lipase WNL. LFTs were mildly elevated and now normal. CT A/P on admission without acute findings. Continue BID Pepcid 20mg IV, and Protonix 40mg IV BID. Scheduled zofran Carafate 1 gm po changed to PRN as pt was frequently refusing. Pain control: IV tylenol and IV morphine B1 level pending Barium Swallow showing stricture at proximal aspect of sleeve with holdup of contrast, that did eventually pass through. --> GI consulted performed EGD with no stricture to be dilated. An opening proximally of bypassed stomach noted at GE junction. Discussed case with Dr. Villanueva, her bariatic surgeon recommend continued BID PPI and scheduled reglan 10mg TID. And if unable to tolerate PO liquids then will need transferred. Pt has been accepted at [facility], awaiting bed. 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 Orthostatics were normal. No further events. Encourage adequate hydration. #Bipolar - continue Topamax 100mg po qPM, Escitalopram 20mg po, Continue Buspirone 15mg po BID - of note, pt has been refusing Dispo: awaiting transfer. DVT Proh: Lovenox updated at bedside 10/10 Admission and Anticipated Discharge Date Admission Date: October 09, 2024 Supervising Physician Co-Signing Physician Notes PA Supervision Note: I personally saw and examined the patient. 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 Still having epigastric abdominal pain. Unable to tolerate any liquids since initiation of diet last PM. Review of Systems Review of Systems: All systems reviewed & are unremarkable except as noted in Subjective Physical Exam Physical Exam: General: NAD, VS as above, lying in bed Resp: normal respiratory effort, lungs clear to auscultation CV: RRR, no murmur, Abd: normal bowel sounds, epigastric tenderness Neuro: A&O x3, Results & Data Results & Data Vital Signs (Past 12 Hours) Vital Signs Temp Pulse Resp BP Pulse Ox O2 Del Method 10/10/24 13:57 98.4 F 80 16 118/73 95 Room Air 10/10/24 07:01 98.6 F 90 16 100/60 97 Room Air PG Care Time/CCT Total # of Minutes Spent Total Time Spent with Patient: Total time spent is greater than 50% in coordination of care (as documented) at patient's floor/unit and/or counseling patient: Coding Level of Care Code 82904 SUB INP/OBS CARE 2/35MIN Diagnoses Abdominal pain R10.9 Abdominal location: unspecified location GERD (gastroesophageal reflux disease) K21.9 Syncope R55 Syncope type: unspecified Bipolar I disorder, single manic episode F30.9 (1) Abdominal pain Abdominal location: unspecified location Qualified Code(s): R10.9 - Unspecified abdominal pain (3) Syncope Syncope type: unspecified Qualified Code(s): R55 - Syncope and collapse
--- NOTE | 2024-10-10 15:58 | Discharge Summary ---
Discharge Summary Date of Service October 11, 2024 Principal Dx & Hospital Course #1 = Principal Diagnosis (1) Abdominal pain: (2) GERD (gastroesophageal reflux disease): (3) Syncope: (4) Bipolar I disorder, single manic episode: Plan #abdominal pain/hx of gastric sleeve/GERD 43yo female with history of gastric sleeve surgery performed in December 2023 presenting with persistent abdominal pain, nausea and PO intolerance ongoing since August - with inability to keep down her medications or any food. Lipase normal, LFTs initally elevated but resolved. She was able to produce an EGD report on her phone from [facility] that was done on 09/22 showing a small hiatal hernia and esophagitis. CT A/P on admission without acute findings. Had Barium swallow showing stricture at proximal aspect of sleeve with hold up of contrast. GI was consulted to perform EGD with possible dilation, however no stricture. Patient was unable to tolerate any PO intake despite scheduled Pepcid, protonix, zofran and Reglan. Unable to tolerate carafate. Epigastric pain reasonably controlled with IV morphine. Discussed case with her bariatric surgeon, Dr. Villanueva who recommended transfer if unable to tolerate PO as there is surgical/endoscopic intervention he can offer. Patient was accepted to [facility] 10/10 and transferred 10/11. 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 Orthostatics were normal. No further events. Encourage adequate hydration. #Bipolar - continue Topamax 100mg po qPM, Escitalopram 20mg po, Continue Buspirone 15mg po BID - of note, pt has been refusing and states barely keeping down at home. Consider restarting at lower dose and titrating up when she can reliably tolerate PO. Dispo: discharge to [facility] Notes For Next Care Provider consider titrating up mental health meds when restarting GI meds/plan pending [facility] eval Admission HPI Per Admitting Provider Gladis Chong is a 43yo female with history of Gastric Sleeve operation performed in [place] by Dr. Villanueva in December 2023, GERD, Bipolar presenting with a possible syncopal event, now with severe abdominal pain. Patient's partner is at bedside. He reports that tonight around 17:35 he received a text from [employer] that said "thanks" but did not make sense. When he went to check on her he found her laying on the bedroom floor. She was complaining of posterior head pain but otherwise no complaints. She does not recall further details of this event. She has had multiple syncopal events in the past with extensive workup including imaging, echo and outpatient continuous cardiac monitoring which were unrevealing. Patient reports feeling very dehydrated now. She states that since August she has had fairly persistent abdominal pain which has been increasing in severity and duration. She has nausea as well as PO intolerance. She reports being unable to tolerate PO and has not been able to take her medications for weeks. Her abdominal pain is not associated with PO intake and is not relieved by bowel movements. She is able to chew - reports when she swallows she feels that food, liquids and medications often get "stuck" mid-esophagus. She then vomits - typically within 5-10 minutes of ingestion. She reports the vomit is undigested food and fully intact pills. Patient otherwise reports decreased UOP and cloudy urine. Denies fever, chills, chest pain, palpitations, cough, SOB. Denies abdominal distention. She is pass ing gas. She has an appointment with Surgery on 10/12/24 in [place]. ER Course: NSS x 1L Promethazine 12.5mg IV Zofran 4mg IV Morphine 4mg IV x 2 Dicyclomine 20mg PO Discharge Exam General: NAD, VS as above, lying in bed Resp: normal respiratory effort, lungs clear to auscultation CV: RRR, no murmur, Abd: normal bowel sounds, soft Neuro: A&O x3, Discharge Plan Discharge Items Patient Disposition: Transfer Acute Care Hospital Reason For Visit: ABDOMINAL PAIN, SYNCOPE Discharge Diagnosis: abdominal pain, vomiting, syncope gastric pouch Activity: Resume your previous activity Non-emergency contact: Primary Care Provider and Surgeon Call non-emergency contact if: you have any medication questions, your symptoms worsen, your pain is not controlled and your temperature is above 101 Follow-up/Referrals: Silvana Mcgarry CRNP [Primary Care Provider] - (f/u after discharge from [facility]) Diet: Clear liquid Addtl Attending Provider Instructions: Ms. Chong You were hospitalized after inability to eat, we found a possible pouch/complication of your gastric sleeve. You are being transferred to [facility] to be under the care of your bariatric surgeon. Updated Med list per their discharge summary. Please follow up with your PCP affter discharge from [facility]. For [facility]: -has been on scheduled zofran and Reaglan. -D5 1/2NSS started for maintence fluids again 10/10 after inability to take PO -has not been tolerating carafate -IV PPI BID Pending Studies at Discharge: No Stand-Alone Forms: My [facility] Skilled Items Patient informed of condition?: Yes DNR: No Discharge Level of Care: Other Communicable Disease: No Discharge Prognosis: Stable Lines: Peripheral IV Urinary Catheter: No Medications and DC Order Prescriptions: New metoclopramide HCl 5 mg/mL Solution 10 mg IV Q6H Qty: 10 0RF Continued escitalopram oxalate [Lexapro] 20 mg tablet 20 mg PO QAM 90 Days Qty: 90 4RF buspirone 15 mg tablet 15 mg PO BID cyanocobalamin (vitamin B-12) 1,000 mcg Capsule 1,000 mcg PO QAM cholecalciferol (vitamin D3) [Vitamin D3] 50 mcg (2,000 unit) Capsule 50 mcg PO QAM sucralfate 100 mg/mL Suspension 1 g PO QID Qty: 420 0RF prochlorperazine maleate 5 mg Tablet 5 mg PO Q6H PRN (Reason: nausea and vomiting) Qty: 30 0RF ondansetron 8 mg Tablet,Disintegrating 8 mg PO Q8H PRN (Reason: nausea and vomiting) Qty: 30 0RF esomeprazole magnesium [Nexium] 40 mg capsule,delayed release(DR/EC) 40 mg PO BID Qty: 60 0RF topiramate [Topamax] 100 mg tablet 100 mg PO QPM Aimovig Autoinjector 140 mg/mL auto-injector 140 mg subcut MONTHLY pantoprazole 40 mg tablet,delayed release (DR/EC) 40 mg PO BID Discharge Orders: Discharge Order (Routine); Ordered 10/10/24 Ordered By: Eva Galo Admission Data Admit Date/Time: 10/09/24 08:34 Attending Provider: Nayeli Draper Admit Provider: Jazmín Reyes Primary Care Provider: Silvana Mcgarry Other Providers: Jazmín Reyes; Dwayne Guzman Other Interventions: Discharge Summary Assessment (RN) Last Done: 10/09/24 14:45 Hospital Stay Data Consultations 10/06/24 21:34 ED Decision to Admit Stat 10/09/24 11:37 Consult Gastroenterology Routine Procedures Performed Operation Date: 10/09/24 16:30 Actual Procedures p EGD Biopsy Cytology - Dwayne Guzman MD Diagnostic Imagining Performed 10/06/24 19:18 CT abd pelvis IV con only Stat CT cervical spine wo con Stat CT chest diagnostic w con Stat CT head/brain wo con Stat 10/09/24 08:00 Esophogram [FL barium swallow] Routine Pending Results Patient Have Any Pending Studies at Discharge: No Discharge Instructions Given to Patient (Per Discharging Provider) Ms. Chong You were hospitalized after inability to eat, we found a possible pouch/complication of your gastric sleeve. You are being transferred to [facility] to be under the care of your bariatric surgeon. Updated Med list per their discharge summary. Please follow up with your PCP affter discharge from [facility]. For [facility]: -has been on scheduled zofran and Reaglan. -D5 1SS started for maintence fluids again 10/10 after inability to take PO -has not been tolerating carafate -IV PPI BID Supervising Physician Co-Signing Physician Notes PA Supervision Note: I did not personally see or examine the patient today, but I verified all lennon points of ORTEGA Galo's assessment and plan with the following exceptions/additions: None Total Time Total Time Spent Total Time Spent (In Minutes): Time spent day of discharge 20 minutes including direct patient care, medication reconciliation, documentation, review of labs and images, and coordination of care. Coding Level of Care Code 99590 IN/OBS DISCH 30 MIN/LESS Diagnoses Abdominal pain R10.9 Abdominal location: unspecified location GERD (gastroesophageal reflux disease) K21.9 Syncope R55 Syncope type: unspecified Bipolar I disorder, single manic episode F30.9
[2024-10-10 19:03] VITALS: O2SAT 97
[2024-10-11 07:10] VITALS: BP 96/66; PULSE 88; TEMP 98.2
--- NOTE | 2024-10-12 11:22 | Anesthesiology Progress Note ---
Date of Service October 09, 2024 Anesthesia Post Procedure Pain Intensity Head: Pain Intensity: 9 Abdomen: Pain Intensity: 6 Transfer of Care Handoff Completed per policy Notes Mental Status: alert / awake / arousable and participated in evaluation Nausea / Vomiting: adequately controlled Pain: adequately controlled Airway Patency, RR, SpO2: stable & adequate BP & HR: stable & adequate Hydration State: stable & adequate Anesthetic Complications: no major complications apparent and Pt Satisfied with anesthetic care
== END 2024-10-11 09:41 | disposition short-term general hospital (02) | DRG 394 ==
LOC: ED 18:08 → 3N 18:08 → SUATTDRO 22:20 → 3N 23:25 → SUATTDRO 10-09 08:34

== ENCOUNTER 2024-11-25 11:44 | Inpatient (IN) ==
--- NOTE | 2024-11-25 12:06 | Emergency Department Note ---
History of Present Illness General Chief complaint: Wound Recheck Stated complaint: WOULD ON ABD, WANTS CHECK AND CARE Time Seen by Provider: 11/25/24 11:55 History of Present Illness Maximum Pain Intensity: 5 This is a 44-year-old female status post sleeve gastrectomy surgery December 2023 that presents to the emergency department via private vehicle with complaints of "wound on abdomen, drainage". The patient notes that secondary to decreased oral intake PEG tube was placed last month and ultimately was removed yesterday during ED visit. Patient states that dressing was placed here and she was discharged. She has a follow-up with her surgeon on December 12 but is returning today noting ongoing yellowish-green drainage from the tube removal site that is saturating her close and dressing. She notes chronic pain to the area over the past several weeks, this is not new. No fevers. Home Medications Medication Instructions Recorded Confirmed Type cyanocobalamin (vitamin B-12) 1,000 mcg PO QAM 05/24/18 11/25/24 History 1,000 mcg capsule cholecalciferol (vitamin D3) 50 50 mcg PO QAM 02/11/22 11/25/24 History mcg (2,000 unit) capsule (Vitamin D3) buspirone 15 mg tablet 15 mg PO BID 07/15/22 11/25/24 History escitalopram oxalate 20 mg tablet 20 mg PO QAM 90 days #90 tabs 03/28/24 11/25/24 Rx (Lexapro) erenumab-aooe 140 mg/mL 140 mg subcut MONTHLY 08/28/24 11/25/24 History subcutaneous auto-injector (Aimovig Autoinjector) topiramate 100 mg tablet (Topamax) 100 mg PO QPM 08/28/24 11/25/24 History ondansetron 8 mg disintegrating 8 mg PO Q8H PRN nausea and 09/04/24 11/25/24 Rx tablet vomiting #30 tabs pantoprazole 40 mg tablet,delayed 40 mg PO BID 10/06/24 11/25/24 History release biotin 1 cap PO DAILY 11/24/24 11/25/24 History folic acid 1 tab PO DAILY 11/24/24 11/25/24 History hydroxyzine pamoate 25 mg capsule 50 mg PO HS 11/24/24 11/25/24 History magnesium 1 tab PO DAILY 11/24/24 11/25/24 History metoclopramide HCl 10 mg tablet 10 mg PO DIRECTED 11/24/24 11/25/24 History (Reglan) Allergies Allergy/AdvReac Type Severity Reaction Status Date / Time Fish Containing Products Allergy Intermediate Rash Verified 10/06/24 20:37 shellfish derived Allergy Verified 10/06/24 20:37 Past Med/Surg History Problem List (Updated 11/25/24 @ 17:20 by Edis Murphy PA-C) Drainage from gastrostomy tube site (Acute) Cellulitis at gastrostomy tube site (Acute) Nausea (Acute) Upper abdominal pain (Acute) Pain around PEG tube site Gastrostomy tube dysfunction (Acute) Cervical radiculopathy Adnexal cyst Paresthesia of left upper extremity Intermittent palpitations Allergic rhinitis due to pollen Snoring Hypersomnia CASSI III (cervical intraepithelial neoplasia III) History of claustrophobia Plantar fasciitis Mixed hyperlipidemia Binge eating disorder Metabolic syndrome Carpal tunnel syndrome, right Morbid obesity Strain of right biceps tendon Migraine without aura, not intractable, without status migrainosus Anxiety Eustachian tube dysfunction Mitral valve prolapse syndrome (Acute) Vitamin B12 deficiency (Acute) Vitamin D deficiency (Acute) Depression Degenerative disc disease Medical History Abdominal pain Bipolar I disorder, single manic episode GERD (gastroesophageal reflux disease) Hypertriglyceridemia Chiari malformation s/p decompression (~2014) No issues since per 05/12/[address] "There has been prior posterior suboccipital decompression. There is persistent caudal positioning of the cerebellar tonsils consistent with Chiari I malformation. 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 no issues with MV on 12/2022 ECHO Hx of Lyme disease 2014 - antibiotic completed Hx of ectopic Anxiety and depression Morbid obesity Pre-diabetes s/p gastric sleeve procedure - no longer an issue GERD (gastroesophageal reflux disease) controlled, stable per pt Post traumatic stress disorder Deep vein thrombosis Around 2006 (LUE- unknown etiology) Headache h/o post spinal tap PAUL and generalized weakness in 2018 per 09/2020 [facility] neuro note Surgical History Hx laparoscopic cholecystectomy Status post sleeve gastrectomy 12/22/23 @ [facility] Myriam Villanueva Hx of hysterectomy History of carpal tunnel release Right History of MRI Right elbow MRI (02/13/22): MAC at [facility]. No issues noted per post-op anesthesia progress note. History of surgery Chiari Malformation repair (~2014; [facility]) Hx of foot surgery R/L repair of plantar fasciitis and removal of heel spurs History of laparoscopy History of tooth extraction Family History Grandmother (Paternal) Family history of diabetes mellitus Family/Other Chiari malformation Venous thrombosis Grandmother Stroke Mother Hypothyroidism Father Mitral valve prolapse Grandmother (Maternal) Breast cancer Denies family history of Ovarian cancer Colorectal cancer Social History Smoking Status: Never smoker Second Hand Exposure: No; Do You Dip or Chew Tobacco: No; Hx Alcohol Use: No Hx Substance Use: No Preferred Language: Ukrainian Communication Ability: Effective Mask Inspector Required: No Beliefs That Will Affect Care: None marital status: Current Living Situation: Family Current Living Situation Comment: lives with the and children current occupational status: employed 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 Feels Safe at Home: Yes Diet: low carbohydrate and other Diet Comment: high protein Physical Activity Frequency: 5-6 Times per Week Assistive Devices: None Review of Systems A total of 10 systems reviewed and were otherwise negative Physical Exam Vital Signs Vital Signs - 24 hr 11/25/24 11:46 11/25/24 11:48 11/25/24 12:30 Temperature 36.6 C 36.6 C Temperature Source Temporal Artery Scan Temporal Artery Scan Pulse Rate 82 73 Pulse Rate [Right] 82 Pulse Rhythm Regular Pulse Rhythm [Right] Pulse Strength [Right] Respiratory Rate 20 20 Respiratory Effort / Characteristics Non-Labored Respiratory Depth Normal Respiratory Pattern Blood Pressure 99/71 L Blood Pressure [Left Arm] Blood Pressure Mean 80 Blood Pressure Mean [Left Arm] Blood Pressure Position [Left Arm] Pulse Oximetry 98 99 Oxygen Delivery Method Room Air Room Air Sepsis Recent Fever Within 48 Hours No Sepsis New/Unexplained Change in Mental Status N/A Sepsis Action Taken by Nursing No Action Required 11/25/24 12:37 11/25/24 14:30 11/25/24 15:30 Temperature Temperature Source Pulse Rate Pulse Rate [Right] 70 73 70 Pulse Rhythm Pulse Rhythm [Right] Regular Regular Pulse Strength [Right] Normal Normal Respiratory Rate 20 20 20 Respiratory Effort / Characteristics Non-Labored Spontaneous Non-Labored Spontaneous Respiratory Depth Normal Normal Respiratory Pattern Regular Regular Blood Pressure Blood Pressure [Left Arm] 106/70 99/67 L 110/72 Blood Pressure Mean Blood Pressure Mean [Left Arm] 82 77 84 Blood Pressure Position [Left Arm] Sitting Pulse Oximetry 99 97 97 Oxygen Delivery Method Room Air Room Air Sepsis Recent Fever Within 48 Hours Sepsis New/Unexplained Change in Mental Status Sepsis Action Taken by Nursing 11/25/24 17:10 11/25/24 17:11 Temperature Temperature Source Pulse Rate Pulse Rate [Right] 72 Pulse Rhythm Pulse Rhythm [Right] Pulse Strength [Right] Respiratory Rate 16 Respiratory Effort / Characteristics Non-Labored Respiratory Depth Normal Respiratory Pattern Blood Pressure Blood Pressure [Left Arm] 98/63 L Blood Pressure Mean Blood Pressure Mean [Left Arm] 74 Blood Pressure Position [Left Arm] Pulse Oximetry 98 98 Oxygen Delivery Method Room Air Room Air Sepsis Recent Fever Within 48 Hours Sepsis New/Unexplained Change in Mental Status Sepsis Action Taken by Nursing VITAL SIGNS - Vital signs and nursing notes were reviewed. Borderline hypotensive 99/71, otherwise stable and afebrile. GENERAL -44-year-old female appearing her stated age who is in no acute distress. Communicates well with provider and answers questions appropriately. SKIN - Without rashes. No meningeal or petechial rash. There is a dressing in place to the upper abdomen superior to the umbilicus, that is saturated with a yellowish-green material. HEAD - NC/AT. EYES - PERRL with EOMI bilaterally. Sclera anicteric. Palpebral conjunctiva pink and moist with no injection noted. EARS - No deformities of external structures noted on gross examination bilaterally. NOSE - Midline and without cyanosis. No epistaxis or purulent drainage noted. MOUTH/OROPHARYNX - Without perioral cyanosis. NECK - Neck with FROM. No nuchal rigidity. LUNGS - Chest wall symmetric without accessory muscle use, intercostals retractions, or central cyanosis. Normal vesicular breath sounds CTA B/L. No wheezes, rales, or rhonchi appreciated. CARDIAC - RRR ABDOMEN - Abdominal contour normal without pulsations or visible masses. BS normoactive all four quadrants. Generalized abdominal tenderness. About 8 cm superior to the umbilicus there is a tract consistent with recent gastrotomy tube. Yellow drainage noted. EXTREMITIES - No clubbing or peripheral cyanosis. +5/5 strength noted in UE/LE bilaterally. NEUROLOGIC - Cranial nerves II through XII grossly intact. PSYCH -alert, oriented and pleasant on exam Course Administered Medications Discontinued Medications Amoxicillin/Clavulanate Potassium (Amoxicillin/Clavulanate 500 Mg Tab) 1 tab PO NOW ONE; Protocol Stop: 11/25/24 15:28 Last Admin: 11/25/24 15:40 Dose: 1 tab Documented By: PEDRO PABLO Sodium Chloride (Nss) 1,000 mls @ 999 mls/hr IV .Q1H1M ONE Stop: 11/25/24 13:13 Last Infusion: 11/25/24 13:37 Dose: Infused Documented By: Admin: 11/25/24 12:18 Dose: 999 mls/hr Documented By: DEE Piperacillin Sod/Tazobactam Sod (Zosyn) 4.5 gm in 100 mls @ 200 mls/hr IV NOW ONE; Protocol Stop: 11/25/24 16:59 Last Admin: 11/25/24 17:03 Dose: 200 mls/hr Documented By: AM Morphine Sulfate (Morphine Sulfate 2 Mg/Ml Carp) 2 mg IV NOW STA Stop: 11/25/24 12:13 Last Admin: 11/25/24 12:18 Dose: 2 mg Documented By: DEE Morphine Sulfate (Morphine Sulfate 2 Mg/Ml Carp) 2 mg IV NOW STA Stop: 11/25/24 13:57 Last Admin: 11/25/24 14:03 Dose: 2 mg Documented By: GREGORIA Ondansetron HCl (Ondansetron Inj 2 Mg/Ml 2 Ml Vial) 4 mg IV NOW STA Stop: 11/25/24 12:13 Last Admin: 11/25/24 12:18 Dose: 4 mg Documented By: DEE Medical Decision Making Laboratory Data 11/25/24 12:10 11/25/24 12:10 Lab Results 11/25/24 Range/Units 12:10 WBC 4.30 L (4.8-10.8) K/ul RBC 4.40 (4.20-5.40) M/uL Hgb 13.3 (12.0-16.0) g/dl Hct 39.8 (37.0-47.0) % MCV 90.5 (80.0-100.0) fL MCH 30.2 (25.0-34.0) pg MCHC 33.4 (32.0-36.0) g/dL RDW Std Deviation 41.0 (36.4-46.3) fL RDW Coeff of Zuleyma 12.4 (11.5-14.5) % Plt Count 174 (130-400) K/uL MPV 11.2 (9.4-12.4) fL Immature Gran % (Auto) 0.2 % Neut % (Auto) 64.0 % Lymph % (Auto) 28.1 % [place] % (Auto) 4.9 % Eos % (Auto) 2.3 % Baso % (Auto) 0.5 % Neut # (Auto) 2.75 (1.40-6.50) K/uL Lymph # (Auto) 1.21 (1.20-3.40) K/uL [place] # (Auto) 0.21 (0.11-0.59) K/uL Eos # (Auto) 0.10 (0.00-0.50) K/uL Baso # (Auto) 0.02 (0.00-0.20) K/uL Immature Gran # (Auto) 0.01 (0.01-0.20) K/uL Sodium 138 (136-145) mmol/L Potassium 4.0 (3.5-5.1) mmol/L Chloride 108 H (98-107) mmol/L Carbon Dioxide 23 (21-32) mmol/L Anion Gap 7 (3-11) BUN 11 (6-23) mg/dl Creatinine 0.96 (0.6-1.2) mg/dl Est Cr Clr Drug Dosing 68.2 ml/min eGFR 75.29 BUN/Creatinine Ratio 11.5 (10-20) Glucose 80 (70-99(Fasting)) mg/dl Calcium 8.9 (8.6-10.3) mg/dl Total Bilirubin 0.8 (0.2-1.0) mg/dl AST 13 (13-39) U/L ALT 11 (7-52) U/L Alkaline Phosphatase 116 H (34-104) U/L Total Protein 6.1 (6.0-8.3) gm/dl Albumin 3.8 (3.4-5.0) gm/dl Globulin 2.3 L (2.5-4.0) gm/dl Albumin/Globulin Ratio 1.7 (0.9-2) Imaging Data Radiologist's Impression: Abdomen/Pelvis CT 11/25/24 12:21 EXAM: CT Abdomen and Pelvis Without Intravenous Contrast INDICATION: Abdominal pain. Recent PEG tube placement. Tube drainage. TECHNIQUE: Axial computed tomography images of the abdomen and pelvis without intravenous contrast. Sagittal and coronal reformatted images were created and reviewed. This CT exam was performed using one or more of the following dose reduction techniques: automated exposure control, adjustment of the mA and/or kV according to patient size, and/or use of iterative reconstruction technique. Oral contrast was administered. COMPARISON: 10/06/2024 FINDINGS: Limitations: None. Lung bases: No abnormality noted. Pleural space: No visualized pleural effusion or pneumothorax. Heart: No abnormality noted. Mediastinum: No abnormality noted. ABDOMEN: Liver: Lack of intravenous contrast limits detection of some masses. No abnormality noted. Gallbladder and bile ducts: Cholecystectomy. No ductal dilation or stone noted. Pancreas: No pancreatic mass, calcification, inflammation or ductal dilation noted. Spleen: No significant abnormality noted. Adrenals: No significant abnormality noted. Kidneys and ureters: No abnormality noted. No stones. No hydronephrosis. No significant perinephric fluid. Stomach and bowel: No contrast extravasation noted from the stomach. Moderate amounts of stool and fluid throughout the colon. No bowel obstruction. PELVIS: Appendix: No findings to suggest acute appendicitis. Bladder: Appears normal for the degree of filling. No stones or inflammation. No large mass. Masses may not be detected in the absence of opacification. Reproductive: No abnormalities noted. ABDOMEN and PELVIS: Intraperitoneal space: No free air. No significant fluid collection. Bones/joints: No acute changes. Soft tissues: 8 cm proximal to the umbilicus is an area of marked induration along what is likely a chest tube tract extending from the anterior gastric wall through the abdominal wall to the skin measuring 2.1 x 2.1 x 2.8 cm. No loculation. Surrounding subcutaneous cellulitis noted. No radiopaque foreign body. Vasculature: No abdominal aortic aneurysm. Lymph nodes: No pathologically enlarged lymph nodes. IMPRESSION: Phlegmon along the gastrostomy tube tract without loculation. The track appears contiguous with the anterior gastric wall and extends to the skin. No radiopaque foreign body noted. ACT 112: N/A Electronically signed by Suki Hudson 11-25-2024 2:08 PM MDM Narrative Patient was seen and evaluated as above in room D02b. Review was performed of triage nursing notes and vital signs. I did review pertinent previous visits and patient history. After obtaining a thorough history and physical examination the above work up was performed. Patient presents to us today for evaluation of drainage from the PEG tube tract noting that the tube was removed yesterday here in the ED with associated drainage to point now it is saturating her close and ongoing abdominal pain over the past several weeks. She notes that she is tolerating oral food and fluids but not much. Patient is borderline hypotensive here 99/71 and clinically appears dry. There is a Tegaderm type dressing with 4 x 4's over the tract at the superior mid abdomen draining a yellowish-green material that has saturated the gauze and is leaking. I did review the patient's CT scan of the abdomen/pelvis with IV contrast dated yesterday. On that CT it was noted the PEG tube was dislodged and the balloon was located in the anterior abdominal wall subcutaneous fat with the tip embedded in the anterior abdominal wall musculature region. Subsequently GI was then consulted on yesterday's visit and the tube was removed. 12:15pm: I spoke with Dr. Cassidy of GI. He did recommend a CT scan of the abdomen/pelvis with oral contrast. He did recommend reaching back out to him once we have the results to review. 2:54 PM: I spoke with Dr. Cassidy of GI again as the CT scan has resulted. We reviewed how there is a phlegmon along the gastrotomy tube tract without loculation. We also discussed surrounding subcutaneous cellulitis per radiologist as above. Initial plan was for discharge on oral Augmentin 500 mg p.o. 3 times daily and ostomy bag placement overlying the site to help collect as well as PPI twice daily and outpatient follow-up. He also recommended ostomy bag to help with collection from the G-tube tract which can then be emptied by the patient as needed. However I discussed this with the patient and she expresses concern about being discharged home noting her discomfort. Patient also notes poor oral intake secondary to nausea. After further discussion with the patient, plan at this time will be to consider inpatient management. I did order the oral Augmentin as recommended by GI. Patient notes he already is on a PPI twice daily and took that this morning. While here the patient did receive IV morphine x 2, IV Zofran for nausea, IV fluids and the oral Augmentin. I did speak with nursing staff, plan is for changing of the dressing and placing ostomy bag to help collect the drainage from the g tube site. GCS: 15 In the evaluation and treatment of this patient the following differential diagnoses were entertained: Cellulitis, fistula, track occlusion, abscess, among others Impression & Plan Upper abdominal pain, Nausea, Cellulitis at gastrostomy tube site, Drainage from gastrostomy tube site Discharge Plan Visit Data Chief Complaint: Wound Recheck Stated Complaint: WOULD ON ABD, WANTS CHECK AND CARE ED Provider: Paco Bruce ED Midlevel Provider: Edis Murphy Discharge Problem: Upper abdominal pain, Nausea, Cellulitis at gastrostomy tube site, Drainage from gastrostomy tube site Patient Disposition: Admitted As Inpatient Condition: Good Forms Stand Alone Forms: My [employer] Prescriptions Prescriptions: No Action escitalopram oxalate [Lexapro] 20 mg tablet 20 mg PO QAM 90 Days Qty: 90 4RF buspirone 15 mg tablet 15 mg PO BID cyanocobalamin (vitamin B-12) 1,000 mcg Capsule 1,000 mcg PO QAM cholecalciferol (vitamin D3) [Vitamin D3] 50 mcg (2,000 unit) Capsule 50 mcg PO QAM ondansetron 8 mg Tablet,Disintegrating 8 mg PO Q8H PRN (Reason: nausea and vomiting) Qty: 30 0RF metoclopramide HCl [Reglan] 10 mg Tablet 10 mg PO DIRECTED hydroxyzine pamoate 25 mg Capsule 50 mg PO HS biotin 1 cap PO DAILY Rx Instructions: OTC unknown dose folic acid 1 tab PO DAILY Rx Instructions: OTC unknown dose magnesium 1 tab PO DAILY Rx Instructions: OTC unknown dose topiramate [Topamax] 100 mg tablet 100 mg PO QPM Aimovig Autoinjector 140 mg/mL auto-injector 140 mg subcut MONTHLY pantoprazole 40 mg tablet,delayed release (DR/EC) 40 mg PO BID Referrals Referrals: Silvana Mcgarry CRNP [Primary Care Provider] -
[2024-11-25] MEDS: MoRPHine SULFATE 2 MG/ML CARP IV STA ×3 (12:18→17:38)
[2024-11-25] MEDS: ONDANSETRON INJ 2 MG/ML 2 ML VIAL IV STA (12:18)
[2024-11-25] MEDS: SODIUM CHLORIDE 0.9% 1,000 ML IV ONE (12:18)
[2024-11-25 12:29] LABS: Basophils # (auto) 0.02 K/uL (0.00-0.20); Basophils % (auto) 0.5 %; Eosinophils % (auto) 2.3 %; Hematocrit (blood only) 39.8 % (37.0-47.0); Hemoglobin 13.3 g/dl (12.0-16.0); Immature Granulocytes # (auto) 0.01 K/uL (0.01-0.20); Immature Granulocytes % (auto) 0.2 %; Lymphocytes # (auto) 1.21 K/uL (1.20-3.40); Lymphocytes % (auto) 28.1 %; Mean Corpuscular Hemoglobin 30.2 pg (25.0-34.0); Mean Corpuscular Hgb Conc 33.4 g/dL (32.0-36.0); Mean Corpuscular Volume 90.5 fL (80.0-100.0); Mean Platelet Volume 11.2 fL (9.4-12.4); Monocytes # (auto) 0.21 K/uL (0.11-0.59); Monocytes % (auto) 4.9 %; Neutrophils # (auto) 2.75 K/uL (1.40-6.50); Platelet Count 174 K/uL (130-400); RDW Coefficient of Variation 12.4 % (11.5-14.5)
[2024-11-25 12:45] LABS: Albumin Globulin Ratio 1.7 (0.9-2); Albumin Level 3.8 gm/dl (3.4-5.0); BUN Creatinine Ratio 11.5 (10-20); Bilirubin,Total 0.8 mg/dl (0.2-1.0); Calcium 8.9 mg/dl (8.6-10.3); Creatinine Clr Calc Pharmacy 68.2 ml/min; Globulin 2.3 gm/dl (2.5-4.0); Total Protein 6.1 gm/dl (6.0-8.3)
--- NOTE | 2024-11-25 14:08 | CT Scan Report ---
EXAM: CT Abdomen and Pelvis Without Intravenous Contrast INDICATION: Abdominal pain. Recent PEG tube placement. Tube drainage. TECHNIQUE: Axial computed tomography images of the abdomen and pelvis without intravenous contrast. Sagittal and coronal reformatted images were created and reviewed. This CT exam was performed using one or more of the following dose reduction techniques: automated exposure control, adjustment of the mA and/or kV according to patient size, and/or use of iterative reconstruction technique. Oral contrast was administered. COMPARISON: 10/06/2024 FINDINGS: Limitations: None. Lung bases: No abnormality noted. Pleural space: No visualized pleural effusion or pneumothorax. Heart: No abnormality noted. Mediastinum: No abnormality noted. ABDOMEN: Liver: Lack of intravenous contrast limits detection of some masses. No abnormality noted. Gallbladder and bile ducts: Cholecystectomy. No ductal dilation or stone noted. Pancreas: No pancreatic mass, calcification, inflammation or ductal dilation noted. Spleen: No significant abnormality noted. Adrenals: No significant abnormality noted. Kidneys and ureters: No abnormality noted. No stones. No hydronephrosis. No significant perinephric fluid. Stomach and bowel: No contrast extravasation noted from the stomach. Moderate amounts of stool and fluid throughout the colon. No bowel obstruction. PELVIS: Appendix: No findings to suggest acute appendicitis. Bladder: Appears normal for the degree of filling. No stones or inflammation. No large mass. Masses may not be detected in the absence of opacification. Reproductive: No abnormalities noted. ABDOMEN and PELVIS: Intraperitoneal space: No free air. No significant fluid collection. Bones/joints: No acute changes. Soft tissues: 8 cm proximal to the umbilicus is an area of marked induration along what is likely a chest tube tract extending from the anterior gastric wall through the abdominal wall to the skin measuring 2.1 x 2.1 x 2.8 cm. No loculation. Surrounding subcutaneous cellulitis noted. No radiopaque foreign body. Vasculature: No abdominal aortic aneurysm. Lymph nodes: No pathologically enlarged lymph nodes. IMPRESSION: Phlegmon along the gastrostomy tube tract without loculation. The track appears contiguous with the anterior gastric wall and extends to the skin. No radiopaque foreign body noted. ACT 112: N/A Electronically signed by Suki Hudsno 11-25-2024 2:08 PM
[2024-11-25] MEDS: AMOXICILLIN/CLAVULANATE 500 MG TAB PO ONE (15:40)
[2024-11-25] MEDS ORDERED: ONDANSETRON 8MG OD TAB PO PRN (16:20)
[2024-11-25] MEDS ORDERED: MoRPHine SULFATE 4 MG/ML 1 ML CARP\\VIAL IM PRN (16:25)
--- NOTE | 2024-11-25 16:41 | History & Physical Report ---
Date of Service November 25, 2024 Assessment & Plan (1) Pain around PEG tube site: Plan: -s/p PEG tube removal after it was dislodged -CT showing phlegmon along the gastrostomy tube tract without loculation -GI recommended augmentin and discharge -Pt admitted for pain control -will give zosyn while inpatient -GI consulted (2) Bipolar 1 disorder: Plan: -con't escitalopram, buspirone Plan Heparin SQ for DVT px History of Present Illness Chief Complaint: abdominal wound pain Primary Care Provider: LUIS EDUARDO Bower Pt is a 44 y/o female who has pmh of seleeve gastrectomy 01/04, s/p PEG tube placement for poor oral intake, who presented to ER yesterday for removal of dislodged PEG tube. Pt states that the dressing overnight has been saturated with yellowish-green fluid. She also is having severe pain to the area. Case was discussed with GI who recommended abdominal CT with contrast. Results showed phlegmon along the gastrostomy tube tract without loculation. GI recommended discharge on Augmentin, however patient complaining of intractable abdominal pain. Will be admitted for pain management and further treatment with IV abx. Allergies Allergy/AdvReac Type Severity Reaction Status Date / Time Fish Containing Products Allergy Intermediate Rash Verified 10/06/24 20:37 shellfish derived Allergy Verified 10/06/24 20:37 Home Medications Medication Instructions Recorded Confirmed Type cyanocobalamin (vitamin B-12) 1,000 mcg PO QAM 05/24/18 11/25/24 History 1,000 mcg capsule cholecalciferol (vitamin D3) 50 50 mcg PO QAM 02/11/22 11/25/24 History mcg (2,000 unit) capsule (Vitamin D3) buspirone 15 mg tablet 15 mg PO BID 07/15/22 11/25/24 History escitalopram oxalate 20 mg tablet 20 mg PO QAM 90 days #90 tabs 03/28/24 11/25/24 Rx (Lexapro) erenumab-aooe 140 mg/mL 140 mg subcut MONTHLY 08/28/24 11/25/24 History subcutaneous auto-injector (Aimovig Autoinjector) topiramate 100 mg tablet (Topamax) 100 mg PO QPM 08/28/24 11/25/24 History ondansetron 8 mg disintegrating 8 mg PO Q8H PRN nausea and 09/04/24 11/25/24 Rx tablet vomiting #30 tabs pantoprazole 40 mg tablet,delayed 40 mg PO BID 10/06/24 11/25/24 History release biotin 1 cap PO DAILY 11/24/24 11/25/24 History folic acid 1 tab PO DAILY 11/24/24 11/25/24 History hydroxyzine pamoate 25 mg capsule 50 mg PO HS 11/24/24 11/25/24 History magnesium 1 tab PO DAILY 11/24/24 11/25/24 History metoclopramide HCl 10 mg tablet 10 mg PO DIRECTED 11/24/24 11/25/24 History (Reglan) Past Med/Surg History Problem List (Updated 11/25/24 @ 16:32 by Piter Bourne MD) Pain around PEG tube site Gastrostomy tube dysfunction (Acute) Cervical radiculopathy Adnexal cyst Paresthesia of left upper extremity Intermittent palpitations Allergic rhinitis due to pollen Snoring Hypersomnia CASSI III (cervical intraepithelial neoplasia III) History of claustrophobia Plantar fasciitis Mixed hyperlipidemia Binge eating disorder Metabolic syndrome Carpal tunnel syndrome, right Morbid obesity Strain of right biceps tendon Migraine without aura, not intractable, without status migrainosus Anxiety Eustachian tube dysfunction Mitral valve prolapse syndrome (Acute) Vitamin B12 deficiency (Acute) Vitamin D deficiency (Acute) Depression Degenerative disc disease Medical History Abdominal pain Bipolar I disorder, single manic episode GERD (gastroesophageal reflux disease) Hypertriglyceridemia Chiari malformation s/p decompression (~2014) No issues since per 05/12/[address] "There has been prior posterior suboccipital decompression. There is persistent caudal positioning of the cerebellar tonsils consistent with Chiari I malformation. 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 Myriam Villanueva Hx of hysterectomy History of carpal tunnel release Right History of MRI Right elbow MRI (02/13/22): MAC at [facility]. No issues noted per post-op anesthesia progress note. History of surgery Chiari Malformation repair (~2014; [facility]) Hx of foot surgery R/L repair of plantar fasciitis and removal of heel spurs History of laparoscopy History of tooth extraction Family History Grandmother (Paternal) Family history of diabetes mellitus Family/Other Chiari malformation Venous thrombosis Grandmother Stroke Mother Hypothyroidism Father Mitral valve prolapse Grandmother (Maternal) Breast cancer Denies family history of Ovarian cancer Colorectal cancer Social History Smoking Status: Never smoker Second Hand Exposure: No; Do You Dip or Chew Tobacco: No; Hx Alcohol Use: No Hx Substance Use: No Preferred Language: Luxembourger Communication Ability: Effective Icu Staff Nurse Required: No Beliefs That Will Affect Care: None marital status: Current Living Situation: Family Current Living Situation Comment: lives with the and children current occupational status: employed 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 HENT: Negative for neck pain/stiffness, headache, congestion, sore throat, swelling. EYES: Negative for discharge/pain or vision changes. RESP: Negative for cough/hemoptysis and shortness of breath. CV: Negative chest pain, difficulty breathing, palpitations. ABD: Negative pain, nausea, vomiting. : Negative increase frequency, dysuria, blood in urine or stool. MUSC: Negative for muscle aches, edema. SKIN: Negative rash, lesions/sores. NEURO: Negative headache, dizziness, weakness. Physical Exam Physical Exam: GENERAL APPEARANCE NAD, activity normal for age, well developed/ well nourished, no cyanosis, pallor, or diaphoresis. EYES lids/conjunctiva normal. EARS/NOSE/THROAT Mucous membranes moist, nares normal, lips/teeth normal uvula midline without oral pharyngeal erythema, exudate or swelling TMs normal bilaterally. No lymphangitis/lymphedema. HEAD/NECK normocephalic atraumatic, no facial trauma, neck is supple. RESPIRATORY respiratory effort normal, speaks in full sentences, no tripod position, no accessory muscle use. Lungs clear to auscultation without rhonchi, wheezes, rales CARDIAC Regular rate and rhythm, no edema. ABDOMINAL Soft, ND/NT. No evidence of fluid wave. No pulsatile masses on exam, rebound tenderness, Erythema and drainage around peg-tube insertion site. MUSCLES/EXTREMITIES No abnormal range of motion, no swelling. SKIN Warm, pink and dry. No rashes, dermatoses, petechiae or lesions. NEUROLOGICAL Speech is clear and appropriate. Normal level of consciousness. Gait and coordination are normal. 5/5 strength in all extremities. PSYCH Normal mood and affect. Judgement/competence is appropriate Results & Data Results & Data Vital Signs (Past 12 Hours) Vital Signs Temp Pulse Pulse Resp BP BP Pulse Ox 11/25/24 15:30 70 20 110/72 97 11/25/24 14:30 73 20 99/67 L 97 11/25/24 12:37 70 20 106/70 99 11/25/24 12:30 73 20 99 11/25/24 11:48 36.6 C 82 20 99/71 L 98 11/25/24 11:46 36.6 C 82 O2 Del Method 11/25/24 15:30 11/25/24 14:30 Room Air 11/25/24 12:37 Room Air 11/25/24 12:30 Room Air 11/25/24 11:48 Room Air 11/25/24 11:46 PG Care Time/CCT Total # of Minutes Spent Total Time Spent with Patient: Total time spent is greater than 50% in coordination of care (as documented) at patient's floor/unit and/or counseling patient: Coding Level of Care Code 48922 INT INP/OBS CARE 2/55MIN Diagnoses Pain around PEG tube site T85.848A Bipolar 1 disorder F31.9
[2024-11-25] MEDS: PIPERACILLIN/TAZOBACTAM 4.5 GM/100 ML BAG IV ONE (17:03)
[2024-11-25] MEDS: FOLIC ACID 1 MG TAB PO ONE (19:23)
[2024-11-25 19:42] LABS: Hematocrit (blood only) 35.8 % (37.0-47.0); Hemoglobin 11.9 g/dl (12.0-16.0); Mean Corpuscular Hemoglobin 30.2 pg (25.0-34.0); Mean Corpuscular Hgb Conc 33.2 g/dL (32.0-36.0); Mean Corpuscular Volume 90.9 fL (80.0-100.0); Mean Platelet Volume 10.7 fL (9.4-12.4); Platelet Count 154 K/uL (130-400); RDW Coefficient of Variation 12.3 % (11.5-14.5); RDW Standard Deviation 40.9 fL (36.4-46.3); Red Blood Count 3.94 M/uL (4.20-5.40); White Blood Count 4.88 K/ul (4.8-10.8)
[2024-11-25 19:58] LABS: BUN Creatinine Ratio 11.2 (10-20); Calcium 8.2 mg/dl (8.6-10.3); Creatinine Clr Calc Pharmacy 73.5 ml/min; Potassium 3.9 mmol/L (3.5-5.1)
[2024-11-25] MEDS: MoRPHine SULFATE 4 MG/ML 1 ML CARP\\VIAL IV PRN (20:09)
[2024-11-25] MEDS: ONDANSETRON INJ 2 MG/ML 2 ML VIAL IV PRN (20:09)
[2024-11-25] MEDS: busPIRone 15 MG TAB PO SCH (20:13)
[2024-11-25] MEDS: PANTOprazole 40 MG TAB PO SCH (20:13)
[2024-11-25] MEDS: TOPIRAMATE 100 MG TAB PO SCH (20:13)
[2024-11-25] MEDS: hydrOXYzine HCl 25 MG TAB PO SCH (20:13)
[2024-11-25] MEDS: HEPARIN SOD 5,000 UNIT/0.5 ML VIAL SQ SCH (20:14)
[2024-11-25] MEDS: PIPERACILLIN/TAZOBACTAM 4.5 GM/100 ML BAG IV SCH (22:18)
[2024-11-26 07:06] LABS: BUN Creatinine Ratio 10.4 (10-20); Calcium 8.1 mg/dl (8.6-10.3); Creatinine Clr Calc Pharmacy 68.2 ml/min; Potassium 3.7 mmol/L (3.5-5.1)
[2024-11-26] MEDS ORDERED: NON-FORMULARY MEDICATION (Biotin 1 CAP) PO SCH (09:00)
--- NOTE | 2024-11-26 09:09 | Hospitalist Progress Note ---
Date of Service November 26, 2024 Assessment & Plan (1) Pain around PEG tube site: Plan: -s/p PEG tube removal after it was dislodged -CT showing phlegmon along the gastrostomy tube tract without loculation -GI recommended augmentin and discharge -Pt admitted for pain control -con't zosyn while inpatient, change to augmentin upon discharge -GI consulted (2) Bipolar 1 disorder: Plan: -con't escitalopram, buspirone Plan Pt is a 44 y/o female who has pmh of seleeve gastrectomy 01/04, s/p PEG tube placement for poor oral intake, who presented to ER yesterday for removal of dislodged PEG tube. Pt states that the dressing overnight has been saturated with yellowish-green fluid. She also is having severe pain to the area. Case was discussed with GI who recommended abdominal CT with contrast. Results showed phlegmon along the gastrostomy tube tract without loculation. GI recommended discharge on Augmentin, however patient complaining of intractable abdominal pain. Will be admitted for pain management and further treatment with IV abx. Heparin SQ for DVT px OK to d/c on oral abx when patient's pain adequately controlled. Anticipate 24hrs. Admission and Anticipated Discharge Date Admission Date: November 25, 2024 Subjective Pt still complaining of pain around PEG-Tube removal site, still with drainage. Review of Systems Review of Systems: CONST: Negative for fever, body aches and chills. HENT: Negative for neck pain/stiffness, headache, congestion, sore throat, swelling. EYES: Negative for discharge/pain or vision changes. RESP: Negative for cough/hemoptysis and shortness of breath. CV: Negative chest pain, difficulty breathing, palpitations. ABD: Negative pain, nausea, vomiting. : Negative increase frequency, dysuria, blood in urine or stool. MUSC: Negative for muscle aches, edema. SKIN: Negative rash, lesions/sores. NEURO: Negative headache, dizziness, weakness. Physical Exam Physical Exam: GENERAL APPEARANCE NAD, activity normal for age, well developed/ well nourished, no cyanosis, pallor, or diaphoresis. EYES lids/conjunctiva normal. EARS/NOSE/THROAT Mucous membranes moist, nares normal, lips/teeth normal uvula midline without oral pharyngeal erythema, exudate or swelling TMs normal bilaterally. No lymphangitis/lymphedema. HEAD/NECK normocephalic atraumatic, no facial trauma, neck is supple. RESPIRATORY respiratory effort normal, speaks in full sentences, no tripod position, no accessory muscle use. Lungs clear to auscultation without rhonchi, wheezes, rales CARDIAC Regular rate and rhythm, no edema. ABDOMINAL Soft, ND/NT. No evidence of fluid wave. No pulsatile masses on exam, rebound tenderness, Erythema and drainage around peg-tube insertion site. MUSCLES/EXTREMITIES No abnormal range of motion, no swelling. SKIN Warm, pink and dry. No rashes, dermatoses, petechiae or lesions. NEUROLOGICAL Speech is clear and appropriate. Normal level of consciousness. Gait and coordination are normal. 5/5 strength in all extremities. PSYCH Normal mood and affect. Judgement/competence is appropriate Results & Data Results & Data Vital Signs (Past 12 Hours) Vital Signs Temp Pulse Resp BP Pulse Ox O2 Del Method 11/26/24 07:52 36.6 C 77 16 92/60 L 95 Room Air PG Care Time/CCT Total # of Minutes Spent Total Time Spent with Patient: Total time spent is greater than 50% in coordination of care (as documented) at patient's floor/unit and/or counseling patient: Coding Level of Care Code 70261 SUB INP/OBS CARE 2/35MIN Diagnoses Pain around PEG tube site T85.848A Bipolar 1 disorder F31.9
--- NOTE | 2024-11-26 09:20 | Gastrointestinal Consultation ---
Date of Consultation November 26, 2024 Assessment & Plan (1) Pain around PEG tube site: Patient developed so call. Bumper syndrome. She is had probably combination of pus and gastric juice drainage from the PEG removal site. No clear gastric drainage today. Predominantly mucousy pus discharge. Patient on Zosyn. We should culture the pus. Patient potentially at risk of developing abdominal wall abscess with closure of the external orifice of the PEG tube. I would continue twice daily PPI therapy to facilitate closure of the internal gastric orifice. (2) Cellulitis at gastrostomy tube site: Mild erythema surrounding site Plan Continue IV antibiotics. Culture PEG site. Home when pain improved and decreased discharge. Observe her potential abdominal wall abscess. 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 Apparently this tube was placed due to feeding difficulties though for 2 to 3 weeks leading up to the Wednesday visit she was able to eat normally. The plan was to remove this tube. It was removed in the emergency room on Wednesday. She Ashkan presented on Wednesday with continued pain. She also noted moderate to large amounts of drainage through the actual PEG orifice. A repeat CT scan showed inflamed changes around the tract small cavity and a buried bumper area. No intra-abdominal fluid or signs of infection. Patient admitted due to pain and for pain control. Patient is now on Zosyn. White count is normal at 4.8 she has been afebrile. Patient appears flushed though she tells me she has rosacea. This is her normal appearance Allergies Allergy/AdvReac Type Severity Reaction Status Date / Time Fish Containing Products Allergy Intermediate Rash Verified 10/06/24 20:37 shellfish derived Allergy Verified 10/06/24 20:37 Home Medications Medication Instructions Recorded Confirmed Type cyanocobalamin (vitamin B-12) 1,000 mcg PO QAM 05/24/18 11/25/24 History 1,000 mcg capsule cholecalciferol (vitamin D3) 50 50 mcg PO QAM 02/11/22 11/25/24 History mcg (2,000 unit) capsule (Vitamin D3) buspirone 15 mg tablet 15 mg PO BID 07/15/22 11/25/24 History escitalopram oxalate 20 mg tablet 20 mg PO QAM 90 days #90 tabs 03/28/24 11/25/24 Rx (Lexapro) erenumab-aooe 140 mg/mL 140 mg subcut MONTHLY 08/28/24 11/25/24 History subcutaneous auto-injector (Aimovig Autoinjector) topiramate 100 mg tablet (Topamax) 100 mg PO QPM 08/28/24 11/25/24 History ondansetron 8 mg disintegrating 8 mg PO Q8H PRN nausea and 09/04/24 11/25/24 Rx tablet vomiting #30 tabs pantoprazole 40 mg tablet,delayed 40 mg PO BID 10/06/24 11/25/24 History release biotin 1 cap PO DAILY 11/24/24 11/25/24 History folic acid 1 tab PO DAILY 11/24/24 11/25/24 History hydroxyzine pamoate 25 mg capsule 50 mg PO HS 11/24/24 11/25/24 History magnesium 1 tab PO DAILY 11/24/24 11/25/24 History metoclopramide HCl 10 mg tablet 10 mg PO DIRECTED 11/24/24 11/25/24 History (Reglan) Patient History Medical History Abdominal pain Bipolar I disorder, single manic episode GERD (gastroesophageal reflux disease) Hypertriglyceridemia Chiari malformation s/p decompression (~2014) No issues since per 05/12/[address] "There has been prior posterior suboccipital decompression. There is persistent caudal positioning of the cerebellar tonsils consistent with Chiari I malformation. 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 ECHO Hx of Lyme disease 2014 - antibiotic completed Hx of ectopic Anxiety and depression Morbid obesity Pre-diabetes s/p gastric sleeve procedure - no longer an issue GERD (gastroesophageal reflux disease) controlled, stable per pt Post traumatic stress disorder Deep vein thrombosis Around 2006 (LUE- unknown etiology) Headache h/o post spinal tap PAUL and generalized weakness in 2018 per 09/2020 [place] neuro note Surgical History Hx laparoscopic cholecystectomy Status post sleeve gastrectomy 12/22/23 @ [facility] Myriam Villanueva Hx of hysterectomy History of carpal tunnel release Right History of MRI Right elbow MRI (02/13/22): MAC at [facility]. No issues noted per post-op anesthesia progress note. History of surgery Chiari Malformation repair (~2014; [facility]) Hx of foot surgery R/L repair of plantar fasciitis and removal of heel spurs History of laparoscopy History of tooth extraction Family History Grandmother (Paternal) Family history of diabetes mellitus Family/Other Chiari malformation Venous thrombosis Grandmother Stroke Mother Hypothyroidism Father Mitral valve prolapse Grandmother (Maternal) Breast cancer Denies family history of Ovarian cancer Colorectal cancer Social History Smoking Status: Never smoker Second Hand Exposure: No; Do You Dip or Chew Tobacco: No; Hx Alcohol Use: No Hx Substance Use: No Preferred Language: Hebrew Communication Ability: Effective Implementation Advisor Required: No Beliefs That Will Affect Care: None marital status: Current Living Situation: Family Current Living Situation Comment: lives with the and children current occupational status: 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 Denies rigors main complaint is pain Respiratory cardiovascular negative GI as mentioned history presenting illness Review of systems otherwise negative Physical Exam Physical Exam: Patient sleeping arouses to voice. Orientated to person place and time. Appears flushed though she has rosacea this is her normal appearance by patient report Chest and heart sounds were normal there was no jaundice Abdominal examination the abdomen is nondistended. There was an OpSite dressing over 2 soaked 4 x 4's. With removal of the covering OpSite and 4 x 4's there is pus discharge. No gastric contents there was some surrounding erythema without significant induration other than an area approximately the 2 o'clock position just below the left rib drawing in machine tender on palpation this area. Bowel sounds were normal. 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
[2024-11-26] MEDS: CYANOCOBALAMIN (B-12) 500 MCG TABLET PO SCH (09:46)
[2024-11-26] MEDS: ESCITALOPRAM OXALATE 20 MG TAB PO SCH (09:46)
[2024-11-26] MEDS: FOLIC ACID 1 MG TAB PO SCH (09:46)
[2024-11-26] MEDS: ACETAMINOPHEN 325 MG TAB PO PRN (20:17)
[2024-11-26] MEDS: LACTATED RINGER'S 1,000 ML IV ONE (21:54)
[2024-11-26] MEDS: LIDOCAINE 2% JELLY 5 ML TUBE EXT SCH (22:02)
[2024-11-27] MEDS: LACTATED RINGER'S 1,000 ML IV ONE ×3 (02:40→23:15)
[2024-11-27 07:00] LABS: Hematocrit (blood only) 31.9 % (37.0-47.0); Hemoglobin 10.6 g/dl (12.0-16.0); Mean Corpuscular Hemoglobin 30.5 pg (25.0-34.0); Mean Corpuscular Hgb Conc 33.2 g/dL (32.0-36.0); Mean Corpuscular Volume 91.7 fL (80.0-100.0); Mean Platelet Volume 11.5 fL (9.4-12.4); Platelet Count 130 K/uL (130-400); RDW Coefficient of Variation 12.4 % (11.5-14.5); RDW Standard Deviation 41.5 fL (36.4-46.3); Red Blood Count 3.48 M/uL (4.20-5.40); White Blood Count 2.75 K/ul (4.8-10.8)
[2024-11-27] MEDS: oxyCODONE HCL IR 5 MG TAB (IMMEDIATE RELEASE) PO PRN (09:00)
--- NOTE | 2024-11-27 11:37 | Hospitalist Progress Note ---
Date of Service November 27, 2024 Assessment & Plan (1) Pain around PEG tube site: Plan Pt is a 44 y/o female who has pmh of seleeve gastrectomy 12/2023, s/p PEG tube placement for poor oral intake, who presented to ER 11/24 for removal of dislodged PEG tube, seen by GI who recommend PO abx which were not prescribed. Presented following day with dressing saturation with yellowish-green fluid and severe pain to the area. Case was discussed with GI who recommended abdominal CT with contrast. Results showed phlegmon along the gastrostomy tube tract without loculation. Admitted for further pain control #Pain around Peg tube site /hx of gasric sleeve GI consulted - recommend cultureof pus, twice daily PPI WC: staph aureus, sensitivies pending Continue Augmentin Pain control: ice, scheduled tylneol, prn oxycodone, prn morphine - try to avoid IV to be able to transition home Mental health - continue buspar, lexapro Dispo: continued inpatient stay for pain control, hopeful for d/c tomorrow DVT px: heparin SQ Admission and Anticipated Discharge Date Admission Date: November 25, 2024 Supervising Physician Co-Signing Physician Notes Attending Attestation - Chart reviewed, care plan d/w ORTEGA Galo. I agree w/ the lennon components of her documentation. Hypoglycemia on am labs while here - check BSGs q6h to ensure normalization. Cont abx for PEG tube tract infection. Augustine Chester MD Subjective Patient seen lying in bed, reports feeling about the same. Having adbominal pain at the site of peg tube removal. PO intake is simiar to what she was doing at home. Is having bowel movements. Denies fevers or chills. Denies hx of MRSA Review of Systems Review of Systems: All systems reviewed & are unremarkable except as noted in Subjective Physical Exam Physical Exam: General: NAD, VS as above, lying in bed, appears fatigued Resp: normal respiratory effort, lungs clear to auscultation CV: RRR, no murmur, Abd: soft, tender with dressing removal - peg tube removal site with mild erythema, no erythema to surrounding skin. serous drainage on gauze Extremities: Moves all extremities, no edema Neuro: A&O x3, Results & Data Results & Data Vital Signs (Past 12 Hours) Vital Signs Temp Pulse Resp BP Pulse Ox O2 Del Method 11/27/24 07:19 98.4 F 68 18 98/64 L 96 Room Air 11/27/24 04:13 104/68 Laboratory Results cbc reviewed PG Care Time/CCT Total # of Minutes Spent Total Time Spent with Patient: Total time spent is greater than 50% in coordination of care (as documented) at patient's floor/unit and/or counseling patient: Coding Level of Care Code 62249 SUB INP/OBS CARE 2/35MIN Diagnoses Pain around PEG tube site T85.848A
[2024-11-27] MEDS: MoRPHine SULFATE 4 MG/ML 1 ML CARP\\VIAL IV PRN (13:34)
[2024-11-27] MEDS: ACETAMINOPHEN 500 MG TAB PO SCH (13:34)
[2024-11-27] MEDS: AMOXICILLIN/CLAVULANATE 875 MG TAB PO SCH (17:46)
[2024-11-27] MEDS: KETOROLAC TROMETHAMINE 15 MG/ML VIAL IV ONE (23:15)
[2024-11-28] MEDS ORDERED: oxyCODONE HCL IR 5 MG TAB (IMMEDIATE RELEASE) PO PRN (08:16)
--- NOTE | 2024-11-28 08:17 | Hospitalist Progress Note ---
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 Presented following day with dressing saturation with yellowish-green fluid and severe pain to the area. Case was discussed with GI who recommended abdominal CT with contrast. Results showed phlegmon along the gastrostomy tube tract without loculation. Admitted for pain control #Pain around Peg tube site /hx of gasric sleeve GI consulted - recommend cultureof pus, twice daily PPI WC: staph aureus, pansensitive Zosyn --> Augmentin PO to complete course Pain control: ice, scheduled Tylenol, prn oxycodone, prn morphine - try to avoid IV to be able to transition home notable got additional toradol 10mg IV last evening for pain control -->will increase PO oxycodone to 10mg, ocyxodone increased to 10mg as needed to hopefully prevent need for IV +BM this morning, monitor Remains on PPI BID s/p 2L IVF overnight for soft BPs but asmtomatic. Repeat labs for today/electrolyte replacement as needed. Tolerating PO and no vomiting. BSG checks acceptable but if low consider D5 ?refeeding concerns? Heparin SQ for DVT prophylaxis. Does have hx gastric bypass and monitor to hold. Mental health - continue buspar, lexapro , hydroxyzine ?cymbalta for additoinal pain control DVT px: heparin SQ , monitor w/ gastric bypass for any issues. Remains on PPI BID Dispo: continued inpatient stay for pain control, labs added for today and will follow up when resulted. Consideration to reach back out to GI if ongoing issues Admission and Anticipated Discharge Date Admission Date: November 27, 2024 Supervising Physician Co-Signing Physician Notes The patient was not seen by me. The chart was reviewed. Case discussed with ORTEGA Smith. Agree with assessment and plan Subjective Eval this morning, laying in bed. Ongoing pain control issues, morphine 1mg and oxycodone 10mg ineffective, morphine effective prior and RN to give 2mg IV dose. Slight increased drainage, dressing changed this morning. Decent PO intake reported. Reports moved her bowels this morning. Pain with movements to her abd. Soft BPs last evening, bolus x 2 but no symptomatic. Will avoid for now. Heat to be provided. Will monitor pain control/drainage, consider repeat imaging if worsening. Physical Exam Physical Exam: General: 44yo female laying in bed, mild-mod distress from abdominal pain Head atraumatic, normocephalic, mmm, trachea midline Resp: even/unlabored, no w/c/r, on room air CV: RRR, no m/r/g, no pitting edema GI: +BS, +tenderness throughout but no significant distension, mild drainage on central dressing/changed by nursing this morning. current dressing c/d/i no rigidity/peritoneal signs but generalized tenderness appreciated : no short MSK/Neuro: nonfocal, no confusion/slurred speech, answering questions appropriately Psych: AOx3, cooperative Results & Data Results & Data Vital Signs (Past 12 Hours) Vital Signs Temp Pulse Resp BP Pulse Ox O2 Del Method 11/28/24 07:10 36.8 C 72 16 102/67 97 Room Air 11/28/24 04:33 64 14 103/70 98 Room Air 11/27/24 21:42 98/65 L PG Care Time/CCT Total # of Minutes Spent Total Time Spent with Patient: Total time spent is greater than 50% in coordination of care (as documented) at patient's floor/unit and/or counseling patient: Coding Level of Care Code 51780 SUB INP/OBS CARE 3/50MIN Diagnoses Pain around PEG tube site T85.848A
[2024-11-28] MEDS: MoRPHine SULFATE 2 MG/ML CARP IV STA (09:12)
[2024-11-28] MEDS: oxyCODONE HCL IR 5 MG TAB (IMMEDIATE RELEASE) PO STA (09:12)
[2024-11-28 11:49] LABS: Albumin Level 3.3 gm/dl (3.4-5.0); BUN Creatinine Ratio 8.8 (10-20); Bilirubin Direct 0.1 mg/dl (0-0.2); Bilirubin,Total 0.5 mg/dl (0.2-1.0); Calcium 8.7 mg/dl (8.6-10.3); Creatinine Clr Calc Pharmacy 71.9 ml/min; Magnesium 1.8 mg/dl (1.7-2.4); Potassium 3.8 mmol/L (3.5-5.1); Total Protein 5.4 gm/dl (6.0-8.3)
[2024-11-28 11:51] LABS: Hematocrit (blood only) 34.7 % (37.0-47.0); Hemoglobin 11.6 g/dl (12.0-16.0); Mean Corpuscular Hemoglobin 30.3 pg (25.0-34.0); Mean Corpuscular Hgb Conc 33.4 g/dL (32.0-36.0); Mean Corpuscular Volume 90.6 fL (80.0-100.0); Mean Platelet Volume 11.9 fL (9.4-12.4); Platelet Count 136 K/uL (130-400); RDW Coefficient of Variation 12.3 % (11.5-14.5); RDW Standard Deviation 40.6 fL (36.4-46.3); Red Blood Count 3.83 M/uL (4.20-5.40); White Blood Count 2.95 K/ul (4.8-10.8)
[2024-11-28] MEDS: MAGNESIUM SULFATE / D5W 1 GM/100 ML BAG IV ONE (12:38)
[2024-11-28] MEDS: oxyCODONE HCL IR 5 MG TAB (IMMEDIATE RELEASE) PO PRN (14:18)
--- NOTE | 2024-11-29 08:21 | Hospitalist Progress Note ---
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 Presented following day with dressing saturation with yellowish-green fluid and severe pain to the area. Case was discussed with GI who recommended abdominal CT with contrast. Results showed phlegmon along the gastrostomy tube tract without loculation. Admitted for pain control #Pain around Peg tube site /hx of gasric sleeve GI consulted - recommend culture of pus, twice daily PPI Culture grew pansensitive staph aureus WBC without leukocytosis, remains afebrile Zosyn IV converted to Augmentin prior to complete course but placing back on IV given ongoing pain issues and surgery consulted. -Initial JOSE felt release of gas when laying flat but Dr Dueñas probes this afternoon and no tract/fluid collection appreciated and ok for diet, -Did have decent drainage this morning 11/29, can re-culture if occurs but dressing c/d/i when I saw her (nursing reported fox/brownish color this morning) Pain control with Oxycodone 10mg and Morphine IV but decreased to 1mg as needed but increased frequency to q3h but encouraged limiting IV as able Pain management consult placed for additional recs/assistance, appreciated Moving bowel daily reported but KUB w/ still retained stool and will add colace BID/senna daily. Monitor cdiff on abx if diarrhea Remains on Heparin SQ for DVT prophylaxis. Hgb stable with ongoing use Monitor exam/labs on repeat Mental health Remains on buspar, lexapro, hydroxyzine. Mood stable but ongoing distres with pain control. ?cymbalta trial. Pain consulted as above DVT px: heparin SQ Dispo: continued inpatient stay for pain control, and switched back to IV abx. Stool studies ordered and pain management consulted to weigh in for ongoing pain needing IV control. Admission and Anticipated Discharge Date Admission Date: November 27, 2024 Supervising Physician Co-Signing Physician Notes The patient was not seen by me. The chart was reviewed. Case discussed with ORTEGA Smith. Agree with assessment and plan Subjective Decent amount of drainage, moderate to dressing, fox/brownish this morning. Currently c/d/i, no surrounding cellulitis. Pain controlled with morphine, change to q3h but lower dose. Surgery saw this morning, made NPO and plans for Dr Dueñas to eval this afternoon -- patient confirmed when laid flat in bed heard his of gas escape and with ongoing pain feel eval warranted. No CP/SOB. Continues with bowel movements daily. Physical Exam 2 Physical Exam: General: 44yo female laying in bed, mild-mod distress from abdominal pain Head atraumatic, normocephalic, mmm, trachea midline Resp: even/unlabored, no w/c/r, on room air CV: RRR, no m/r/g, no pitting edema GI: +BS, +tenderness throughout but no significant distension, mild drainage on dressing earlier reported but none on current dressing, tenderness out of proportion to exam, voluntary guarding but no rebound MSK/Neuro: nonfocal, no confusion/slurred speech, answering questions appropriately Psych: AOx3 Results & Data Results & Data Vital Signs (Past 12 Hours) Vital Signs Temp Pulse Resp BP Pulse Ox O2 Del Method 11/29/24 07:33 36.8 C 79 16 97/64 L 97 Room Air Laboratory Results 11/29/24 07:52 11/29/24 07:52 Diagnostic Findings KUB X-Ray 11/29/24 08:19 KUB HISTORY: ongoing abd pain s/p peg tube removal COMPARISON STUDY: 11/25/2024 FINDINGS: There is mild retained stool. No bowel obstruction seen. No gross free air. Stable right upper quadrant surgical clips and left upper quadrant surgical suture. IMPRESSION: No acute findings. ACT 112: Negative or not required by law. The above report was generated using voice recognition software. It may contain grammatical, syntax or spelling errors. Electronically signed by: Keyshawn Cole M.D. 11/29/2024 9:28 AM PG Care Time/CCT Total # of Minutes Spent Total Time Spent with Patient: Total time spent is greater than 50% in coordination of care (as documented) at patient's floor/unit and/or counseling patient: Coding Level of Care Code 99084 SUB INP/OBS CARE 3/50MIN Diagnoses Pain around PEG tube site T85.848A
[2024-11-29 08:30] LABS: Hematocrit (blood only) 34.9 % (37.0-47.0); Hemoglobin 11.6 g/dl (12.0-16.0); Mean Corpuscular Hemoglobin 30.1 pg (25.0-34.0); Mean Corpuscular Hgb Conc 33.2 g/dL (32.0-36.0); Mean Corpuscular Volume 90.6 fL (80.0-100.0); Mean Platelet Volume 11.5 fL (9.4-12.4); Platelet Count 123 K/uL (130-400); RDW Coefficient of Variation 12.4 % (11.5-14.5); Red Blood Count 3.85 M/uL (4.20-5.40); White Blood Count 2.87 K/ul (4.8-10.8)
[2024-11-29 08:44] LABS: Albumin Level 3.2 gm/dl (3.4-5.0); BUN Creatinine Ratio 7.7 (10-20); Bilirubin Direct 0.1 mg/dl (0-0.2); Bilirubin,Total 0.5 mg/dl (0.2-1.0); Calcium 8.4 mg/dl (8.6-10.3); Creatinine Clr Calc Pharmacy 71.9 ml/min; Potassium 3.8 mmol/L (3.5-5.1); Total Protein 5.2 gm/dl (6.0-8.3)
--- NOTE | 2024-11-29 09:29 | XRay Report ---
KUB HISTORY: ongoing abd pain s/p peg tube removal COMPARISON STUDY: 11/25/2024 FINDINGS: There is mild retained stool. No bowel obstruction seen. No gross free air. Stable right up per quadrant surgical clips and left upper quadrant surgical suture. IMPRESSION: No acute findings. ACT 112: Negative or not required by law. The above report was generated using voice recognition software. It may contain grammatical, syntax o r spelling errors. Electronically signed by: Keyshawn Cole M.D. 11/29/2024 9:28 AM
--- NOTE | 2024-11-29 09:31 | Surgery Consultation ---
Date of Consultation November 29, 2024 Assessment & Plan (1) Drainage from gastrostomy tube site: (2) Pain around PEG tube site: 44 yo female who underwent sleeve gastrectomy in December of last year had PEG tube for about 1 month and then it dislodged and PEG tube was removed in ED on 11/24/24. She presented back to ED with pain and drainage from the prior PEG site. CT scan of abdomen and pelvis with iv and oral contrast showing phlegmon at PEG tube tract site but no evidence of extravasatio of oral contrast and no drainable fluid collection. No drainable fluid colleciton on examination today, moderate to severe tenderness at PEG site and upper abdomen however abdomen soft without distension or rigidty or peritonitis. Tract probed with no evidence of abscess . No surgical intervention required. Okay to resume regular diet. Continue antibiotics and pain management. Dr. Dueñas has seen and examined patient, see addendum for further recommendations/plan. Supervising Physician Co-Signing Physician Notes I have seen and examined the patient and agree with the above assessment and plan. In brief, she had a PEG tube removed and has had significant pain since that time. CT scan demonstrates phlegmon along the length of the tract. On exam, she does have tenderness at this area. I probed the tract with a Q-tip. Everything is open. There is no undrained abscess collection. We recommend IV antibiotics for now. Please call with questions or concerns. History of Present Illness Reason for Consultation: continued pain at prior PEG tube site, phlegmon Requesting Physician: Laure Heredia PA-C Attending Physician: Dhiraj Cruz MD History of Present Illness Gladis ramos a 44 yo female with history of sleeve gastrectomy in December of last year and recent PEG tube placement 1 month ago in [place] presented to ED initially on 11/24/24 as PEG tube was displaced. PEG Tube was removed and then she presented back to ED with pain and drainage. Repeat CT scan of abdomen and pelvis with IV and oral contrast showed phlegmon at site of PEG tube tract but no drainable abscess. No extravasation of oral contrast. Our services consulted due to ongoing pain at PEG site and drainage. Culture taken which showed staph. She states she is having 8/10 pain, pain worse with eating. No vomiting. Normal bowel movements daily. Pain is controlled with Morphine. Allergies Allergy/AdvReac Type Severity Reaction Status Date / Time Fish Containing Products Allergy Intermediate Rash Verified 10/06/24 20:37 shellfish derived Allergy Verified 10/06/24 20:37 Home Medications Medication Instructions Recorded Confirmed Type cyanocobalamin (vitamin B-12) 1,000 mcg PO QAM 05/24/18 11/25/24 History 1,000 mcg capsule cholecalciferol (vitamin D3) 50 50 mcg PO QAM 02/11/22 11/25/24 History mcg (2,000 unit) capsule (Vitamin D3) buspirone 15 mg tablet 15 mg PO BID 07/15/22 11/25/24 History escitalopram oxalate 20 mg tablet 20 mg PO QAM 90 days #90 tabs 03/28/24 11/25/24 Rx (Lexapro) erenumab-aooe 140 mg/mL 140 mg subcut MONTHLY 08/28/24 11/25/24 History subcutaneous auto-injector (Aimovig Autoinjector) topiramate 100 mg tablet (Topamax) 100 mg PO QPM 08/28/24 11/25/24 History ondansetron 8 mg disintegrating 8 mg PO Q8H PRN nausea and 09/04/24 11/25/24 Rx tablet vomiting #30 tabs pantoprazole 40 mg tablet,delayed 40 mg PO BID 10/06/24 11/25/24 History release biotin 1 cap PO DAILY 11/24/24 11/25/24 History folic acid 1 tab PO DAILY 11/24/24 11/25/24 History hydroxyzine pamoate 25 mg capsule 50 mg PO HS 11/24/24 11/25/24 History magnesium 1 tab PO DAILY 11/24/24 11/25/24 History metoclopramide HCl 10 mg tablet 10 mg PO DIRECTED 11/24/24 11/25/24 History (Reglan) Patient History Medical History Abdominal pain Bipolar I disorder, single manic episode GERD (gastroesophageal reflux disease) Hypertriglyceridemia Chiari malformation s/p decompression (~2014) No issues since per 05/12/[address] "There has been prior posterior suboccipital decompression. There is persistent caudal positioning of the cerebellar tonsils consistent with Chiari I malformation. 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 no director of housing and energy services no issues with MV on 12/2022 ECHO Hx of Lyme disease 2014 - antibiotic completed Hx of ectopic Anxiety and depression Morbid obesity Pre-diabetes s/p gastric sleeve procedure - no longer an issue GERD (gastroesophageal reflux disease) controlled, stable per pt Post traumatic stress disorder Deep vein thrombosis Around 2006 (LUE- unknown etiology) Headache h/o post spinal tap PAUL and generalized weakness in 2018 per 09/2020 [facility] neuro note Surgical History Hx laparoscopic cholecystectomy Status post sleeve gastrectomy 12/22/23 @ [facility] Myriam Villanueva Hx of hysterectomy History of carpal tunnel release Right History of MRI Right elbow MRI (02/13/22): MAC at [facility]. No issues noted per post-op anesthesia progress note. History of surgery Chiari Malformation repair (~2014; [facility]) Hx of foot surgery R/L repair of plantar fasciitis and removal of heel spurs History of laparoscopy History of tooth extraction Family History Grandmother (Paternal) Family history of diabetes mellitus Family/Other Chiari malformation Venous thrombosis Grandmother Stroke Mother Hypothyroidism Father Mitral valve prolapse Grandmother (Maternal) Breast cancer Denies family history of Ovarian cancer Colorectal cancer Social History Smoking Status: Never smoker Second Hand Exposure: No; Do You Dip or Chew Tobacco: No; Hx Alcohol Use: No Hx Substance Use: No Preferred Language: Nepali Communication Ability: Effective Piston Maker Required: No Beliefs That Will Affect Care: None marital status: Current Living Situation: Family Current Living Situation Comment: lives with the and children current occupational status: employed 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 Feels Safe at Home: Yes Safety Concerns: Feels Safe At This Time Diet: low carbohydrate and other Diet Comment: high protein Physical Activity Frequency: 5-6 Times per Week Assistive Devices: None Review of Systems Review of Systems: All systems reviewed & are unremarkable except as noted in HPI & below Physical Exam Constitutional: WD/WN, vitals as above cooperative and comfortable; + not well developed and no acute distress Respiratory: normal respiratory effort; no respiratory distress and no labored breathing Gastrointestinal (Abdomen): Inspection/Auscultation: abdomen normal to inspection; abdomen not distended Percussion/Palpation: + abdomen tender (upp er abdomen and at prior PEG tube site), + guarding (voluntary on examination upper mid abdomen) and abdomen soft; abdomen not rigid There is a tract from prior peg site however no surrounding erythema, induration, flucutance, or skin thickening. Moderate tenderness on examination. Tract probed with no evidence of abscess. Results & Data Vital Signs (Past 12 Hours) Vital Signs Temp Pulse Resp BP Pulse Ox O2 Del Method 11/29/24 07:33 36.8 C 79 16 97/64 L 97 Room Air Laboratory Results 11/29/24 11/29/24 11/29/24 Range/Units 11:48 07:52 07:46 WBC 2.87 L (4.8-10.8) K/ul RBC 3.85 L (4.20-5.40) M/uL Hgb 11.6 L (12.0-16.0) g/dl Hct 34.9 L (37.0-47.0) % MCV 90.6 (80.0-100.0) fL MCH 30.1 (25.0-34.0) pg MCHC 33.2 (32.0-36.0) g/dL RDW Std Deviation 41.0 (36.4-46.3) fL RDW Coeff of Zuleyma 12.4 (11.5-14.5) % Plt Count 123 L (130-400) K/uL MPV 11.5 (9.4-12.4) fL Sodium 140 (136-145) mmol/L Potassium 3.8 (3.5-5.1) mmol/L Chloride 112 H (98-107) mmol/L Carbon Dioxide 24 (21-32) mmol/L Anion Gap 4 (3-11) BUN 7 (6-23) mg/dl Creatinine 0.91 (0.6-1.2) mg/dl Est Cr Clr Drug Dosing 71.9 ml/min eGFR 80.28 BUN/Creatinine Ratio 7.7 L (10-20) Glucose 81 (70-99(Fasting)) mg/dl POC Glucose 88 78 (70-99) mg/dl Calcium 8.4 L (8.6-10.3) mg/dl Magnesium 2.0 (1.7-2.4) mg/dl Total Bilirubin 0.5 (0.2-1.0) mg/dl Direct Bilirubin 0.1 (0-0.2) mg/dl AST 13 (13-39) U/L ALT 19 (7-52) U/L Alkaline Phosphatase 94 (34-104) U/L Total Protein 5.2 L (6.0-8.3) gm/dl Albumin 3.2 L (3.4-5.0) gm/dl 25-OH Vitamin D Total 60.8 (30-100) ng/ml 11/28/24 11/28/24 Range/Units 20:12 16:50 WBC (4.8-10.8) K/ul RBC (4.20-5.40) M/uL Hgb (12.0-16.0) g/dl Hct (37.0-47.0) % MCV (80.0-100.0) fL MCH (25.0-34.0) pg MCHC (32.0-36.0) g/dL RDW Std Deviation (36.4-46.3) fL RDW Coeff of Zuleyma (11.5-14.5) % Plt Count (130-400) K/uL MPV (9.4-12.4) fL Sodium (136-145) mmol/L Potassium (3.5-5.1) mmol/L Chloride (98-107) mmol/L Carbon Dioxide (21-32) mmol/L Anion Gap (3-11) BUN (6-23) mg/dl Creatinine (0.6-1.2) mg/dl Est Cr Clr Drug Dosing ml/min eGFR BUN/Creatinine Ratio (10-20) Glucose (70-99(Fasting)) mg/dl POC Glucose 93 102 H (70-99) mg/dl Calcium (8.6-10.3) mg/dl Magnesium (1.7-2.4) mg/dl Total Bilirubin (0.2-1.0) mg/dl Direct Bilirubin (0-0.2) mg/dl AST (13-39) U/L ALT (7-52) U/L Alkaline Phosphatase (34-104) U/L Total Protein (6.0-8.3) gm/dl Albumin (3.4-5.0) gm/dl 25-OH Vitamin D Total (30-100) ng/ml Diagnostic Findings EXAM: CT Abdomen and Pelvis Without Intravenous Contrast INDICATION: Abdominal pain. Recent PEG tube placement. Tube drainage. TECHNIQUE: Axial computed tomography images of the abdomen and pelvis without intravenous contrast. Sagittal and coronal reformatted images were created and reviewed. This CT exam was performed using one or more of the following dose reduction techniques: automated exposure control, adjustment of the mA and/or kV according to patient size, and/or use of iterative reconstruction technique. Oral contrast was administered. COMPARISON: 10/06/2024 FINDINGS: Limitations: None. Lung bases: No abnormality noted. Pleural space: No visualized pleural effusion or pneumothorax. Heart: No abnormality noted. Mediastinum: No abnormality noted. ABDOMEN: Liver: Lack of intravenous contrast limits detection of some masses. No abnormality noted. Gallbladder and bile ducts: Cholecystectomy. No ductal dilation or stone noted. Pancreas: No pancreatic mass, calcification, inflammation or ductal dilation noted. Spleen: No significant abnormality noted. Adrenals: No significant abnormality noted. Kidneys and ureters: No abnormality noted. No stones. No hydronephrosis. No significant perinephric fluid. Stomach and bowel: No contrast extravasation noted from the stomach. Moderate amounts of stool and fluid throughout the colon. No bowel obstruction. PELVIS: Appendix: No findings to suggest acute appendicitis. Bladder: Appears normal for the degree of filling. No stones or inflammation. No large mass. Masses may not be detected in the absence of opacification. Reproductive: No abnormalities noted. ABDOMEN and PELVIS: Intraperitoneal space: No free air. No significant fluid collection. Bones/joints: No acute changes. Soft tissues: 8 cm proximal to the umbilicus is an area of marked induration along what is likely a chest tube tract extending from the anterior gastric wall through the abdominal wall to the skin measuring 2.1 x 2.1 x 2.8 cm. No loculation. Surrounding subcutaneous cellulitis noted. No radiopaque foreign body. Vasculature: No abdominal aortic aneurysm. Lymph nodes: No pathologically enlarged lymph nodes. IMPRESSION: Phlegmon along the gastrostomy tube tract without loculation. The track appears contiguous with the anterior gastric wall and extends to the skin. No radiopaque foreign body noted. I PERSONALLY REVIEWED CT SCAN IMAGES AND CONCUR WITH ABOVE FINDINGS. NO DRAINABLE FLUID COLLECTION SEE AND NO EVIDENCE OF EXTRAVASATION OF ORAL CONTRAST
[2024-11-29] MEDS: MoRPHine SULFATE 4 MG/ML 1 ML CARP\\VIAL IV PRN ×2 (09:35→15:19)
[2024-11-29] MEDS: LACTATED RINGER'S 1,000 ML IV SCH (12:12)
[2024-11-29] MEDS: 4.5GM X1 IV ONE (15:19)
[2024-11-29] MEDS: SENNA 8.6 MG TAB PO SCH (15:20)
[2024-11-29] MEDS: MoRPHine SULFATE 2 MG/ML CARP ONE (18:08)
[2024-11-29] MEDS: PIPERACILLIN/TAZOBACTAM 4.5 GM/100 ML BAG IV SCH (21:40)
[2024-11-29] MEDS: DOCUSATE SODIUM 100 MG CAP PO SCH (21:45)
[2024-11-29] MEDS: LACTATED RINGER'S 500 ML IV ONE (22:53)
[2024-11-29] MEDS: LACTATED RINGER'S 1,000 ML IV ONE (23:19)
[2024-11-29] MEDS: KETOROLAC TROMETHAMINE 15 MG/ML VIAL IV ONE (23:31)
[2024-11-30] MEDS: LACTATED RINGER'S 1,000 ML IV ONE (00:22)
--- NOTE | 2024-11-30 07:50 | Hospitalist Progress Note ---
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 Presented to ER for poor PO intake and ongoing pain control. Had removal of dislodged PEG tube and was seen by GI who recommended PO abx and were not prescribed and discharged home and represented the following day with dressing saturation of yellow-greenish fluid with severe pain to the area. CTAP ordered on admission which showed phlegmon along gastrostomy tract without loculation. #Pain around Peg tube site /hx of gasric sleeve GI consulted - recommend culture of pus, twice daily PPI Culture: staph, guillory sensitive Zosyn converted to Augmentin however with ongoing pain from site and surgery consulted. JOSE noting gas when laying flat but surgeon eval last evening and probe w/ qtip and no un-drained abscess at this time but rec for IV abx Converted back to Zosyn IV Ongoing pain and pain management consulted- see note, already on current and will continue morphine 1mg IV for breakthrough, trial tramadol over oxycodone to see if any better results Is tolerating diet, moving bowels. Remains on bowel regimen Notable 2.5L overnight for soft BPs but ASYMPTOMATIC and WOULD AVOID UNLESS HAVING SYMPTOMS- discussed w/ patient REPEAT CX from drainage to see if any ongoing issues but if ongoing pain/issues in AM and cx without significant change can consider repeat CTAP imaging vs US for eval possible abscess (noting again surgery probes last evening without evidence for such) Remains on Heparin SQ for DVT prophylaxis. Hgb stable with ongoing use Monitor exam/labs on repeat Cortisol checked random and borderline 7.4 and will trial hydrocortisone 20mg QAM/10mg PM per supervising provider to see if any improvement in BP but NOT orthostatic/no sx such and no adrenal masses on CT Monitor labs/exam on repeat and f/u abd cx Mental health Remains on buspar, lexapro, hydroxyzine. Mood stable but ongoing distress with pain control. ?cymbalta trial DVT px: heparin SQ continued Dispo: continued inpatient for ongoing pain on IV abx, consideration for repeat abd imaging if ongoing issues in AM for comparison Admission and Anticipated Discharge Date Admission Date: November 27, 2024 Supervising Physician Co-Signing Physician Notes The patient was not seen by me. The chart was reviewed. Case discussed with ORTEGA Smith. Agree with assessment and plan Subjective Eval this morinng, ongoing pain issues. PO not effective, just got IV. Noted copious IV overnight, she denies symptoms lightheaded/dizziness and mentation intact and discussed avoiding. Cortisol borderline, will add hydrocortisone/monitor response to see if related to possible adrenal insufficiency. No recent steroids/injections reported. Discussed continued abx but drainage on current dressing and nursing to obtain repeat culture/will plan to monitor results. No CP/SOB, tolerating PO intake without vomiting. Questions/concerns addressed at this time. Physical Exam 2 Physical Exam: General: 44yo female laying in bed, mildly uncomfortable 2nd to abdominal pain, scant darkened drainage from tube site (nursing obtaining culture) Head atraumatic, normocephalic, mm acceptable, trachea midline Resp: even/unlabored, no w/c/r, on room air CV: RRR, no m/r/g, no pitting edema GI: +BS, +tenderness throughout but no significant distension, mild drainage on dressing as above, +tenderness to site but out of proportion to expectation however no rigidity/guarding or rebound MSK/Neuro: nonfocal, no confusion/slurred speech, answering questions appropriately Psych: AOx3 Results & Data Results & Data Vital Signs (Past 12 Hours) Vital Signs Temp Pulse Pulse Resp BP Pulse Ox O2 Del Method 11/30/24 07:37 36.7 C 66 16 99/64 L 97 Room Air 11/30/24 01:26 64 16 99/63 L 97 Room Air 11/29/24 20:55 37.0 C 71 16 89/58 L 96 Room Air Laboratory Results 11/30/24 07:54 11/30/24 07:46 PG Care Time/CCT Total # of Minutes Spent Total Time Spent with Patient: Total time spent is greater than 50% in coordination of care (as documented) at patient's floor/unit and/or counseling patient: Coding Level of Care Code 44932 SUB INP/OBS CARE 3/50MIN Diagnoses Pain around PEG tube site T85.848A
[2024-11-30 08:17] LABS: Basophils # (auto) 0.02 K/uL (0.00-0.20); Basophils % (auto) 0.6 %; Eosinophils # (auto) 0.12 K/uL (0.00-0.50); Eosinophils % (auto) 3.8 %; Hematocrit (blood only) 32.9 % (37.0-47.0); Lymphocytes # (auto) 1.48 K/uL (1.20-3.40); Lymphocytes % (auto) 46.7 %; Mean Corpuscular Hemoglobin 30.8 pg (25.0-34.0); Mean Corpuscular Hgb Conc 33.4 g/dL (32.0-36.0); Mean Corpuscular Volume 92.2 fL (80.0-100.0); Mean Platelet Volume 11.5 fL (9.4-12.4); Monocytes # (auto) 0.16 K/uL (0.11-0.59); Neutrophils # (auto) 1.39 K/uL (1.40-6.50); Neutrophils % (auto) 43.9 %; Platelet Count 122 K/uL (130-400); RDW Coefficient of Variation 12.3 % (11.5-14.5); RDW Standard Deviation 41.3 fL (36.4-46.3); Red Blood Count 3.57 M/uL (4.20-5.40); White Blood Count 3.17 K/ul (4.8-10.8)
[2024-11-30 08:35] LABS: BUN Creatinine Ratio 6.9 (10-20); Calcium 8.2 mg/dl (8.6-10.3); Creatinine Clr Calc Pharmacy 75.2 ml/min; Potassium 3.7 mmol/L (3.5-5.1)
--- NOTE | 2024-11-30 09:55 | Pain Management Consultation ---
Date of Consultation November 30, 2024 Assessment & Plan (1) Pain around PEG tube site: Encounter type: initial encounter Qualified Code(s): T85.848A - Pain due to other internal prosthetic devices, implants and grafts, initial encounter (2) Cellulitis at gastrostomy tube site: (3) Drainage from gastrostomy tube site: Plan 1. Patient currently indicating adequate pain control with use of morphine 1 mg IV every 3 hours with use of 5 mg total over the past 24 hours. We discussed recommendations to attempt to transition away from IV morphine as able with an attempt to use the p.o. Oxy IR for breakthrough pain over the next 24-48 hours. She was encouraged to initially trial the Oxy IR for her breakthrough pain moving forward reserving IV morphine for pain not well-controlled with Oxy IR. We discussed expectations in pain improvement as infection continues to improve. Pain service has nothing interventional to offer the patient at this time. Would not recommend adjuvants at this time due to expectation of short-term pain due to infection at PEG tube site. Pain service will sign off on patient at this time. Thank you for allowing us to participate in the care of Mrs. Chong. History of Present Illness Reason for Consultation: Abdominal pain at site of PEG tube removal Requesting Physician: Laure Heredia PA-C Attending Physician: Dhiraj Cruz MD History of Present Illness Mrs. Chong is a 44-year-old white female with past medical history of sleeve gastrectomy December 2023 status post PEG tube placement for poor oral intake who had removal of PEG tube during emergent evaluation on 11/24/2024. The patient developed immediate pain at the site of the PEG tube removal which has been fairly persistent. She rates the pain a 7-9/10 which is sharp and episodic. Patient has been followed by surgical team who has deferred surgical intervention. Most recent abdominal/pelvic CT revealed phlegmon along the gastrostomy tube tract without loculation appearing contiguous with the anterior gastric wall extending to the skin. Antibiotic therapy has been ongoing currently with Zosyn and Augmentin. Pain control has been improved with use of IV morphine which provided significant relief of pain for approximately 4 hours per her report. She is tolerating the morphine without notable side effects. Patient indicates that she is moving her bowels daily. She denies that the pain radiates to any other part of the abdomen other than localized to the site of the PEG tube removal. Patient denies any chronic use of opiate therapy. Patient has no further constitutional complaints. Plan of care discussed with Dr. Marlen Gandhi. Pain Assessment Full Body Front + Back: 2 1. RUQ at site of PEG tube removal Pain scale - at its best (0-10): 2 Pain scale - at its worst (0-10): 8 Allergies Allergy/AdvReac Type Severity Reaction Status Date / Time Fish Containing Products Allergy Intermediate Rash Verified 10/06/24 20:37 shellfish derived Allergy Verified 10/06/24 20:37 Home Medications Medication Instructions Recorded Confirmed Type cyanocobalamin (vitamin B-12) 1,000 mcg PO QAM 05/24/18 11/25/24 History 1,000 mcg capsule cholecalciferol (vitamin D3) 50 50 mcg PO QAM 02/11/22 11/25/24 History mcg (2,000 unit) capsule (Vitamin D3) buspirone 15 mg tablet 15 mg PO BID 07/15/22 11/25/24 History escitalopram oxalate 20 mg tablet 20 mg PO QAM 90 days #90 tabs 03/28/24 11/25/24 Rx (Lexapro) erenumab-aooe 140 mg/mL 140 mg subcut MONTHLY 08/28/24 11/25/24 History subcutaneous auto-injector (Aimovig Autoinjector) topiramate 100 mg tablet (Topamax) 100 mg PO QPM 08/28/24 11/25/24 History ondansetron 8 mg disintegrating 8 mg PO Q8H PRN nausea and 09/04/24 11/25/24 Rx tablet vomiting #30 tabs pantoprazole 40 mg tablet,delayed 40 mg PO BID 10/06/24 11/25/24 History release biotin 1 cap PO DAILY 11/24/24 11/25/24 History folic acid 1 tab PO DAILY 11/24/24 11/25/24 History hydroxyzine pamoate 25 mg capsule 50 mg PO HS 11/24/24 11/25/24 History magnesium 1 tab PO DAILY 11/24/24 11/25/24 History metoclopramide HCl 10 mg tablet 10 mg PO DIRECTED 11/24/24 11/25/24 History (Reglan) Pain History Pain Intensity Pain scale - at its best (0-10): 2 Pain scale - at its worst (0-10): 8 Patient History Medical History Abdominal pain Bipolar I disorder, single manic episode GERD (gastroesophageal reflux disease) Hypertriglyceridemia Chiari malformation s/p decompression (~2014) No issues since per 05/12/[address] "There has been prior posterior suboccipital decompression. There is persistent caudal positioning of the cerebellar tonsils consistent with Chiari I malformation. 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 no licensed dispensing optician no issues with MV on 12/2022 ECHO Hx of Lyme disease 2014 - antibiotic completed Hx of ectopic Anxiety and depression Morbid obesity Pre-diabetes s/p gastric sleeve procedure - no longer an issue GERD (gastroesophageal reflux disease) controlled, stable per pt Post traumatic stress disorder Deep vein thrombosis Around 2006 (LUE- unknown etiology) Headache h/o post spinal tap PAUL and generalized weakness in 2018 per 09/2020 [facility] neuro note Surgical History Hx laparoscopic cholecystectomy Status post sleeve gastrectomy 12/22/23 @ [facility] Myriam Villanueva Hx of hysterectomy History of carpal tunnel release Right History of MRI Right elbow MRI (02/13/22): MAC at [facility]. No issues noted per post-op anesthesia progress note. History of surgery Chiari Malformation repair (~2014; [facility]) Hx of foot surgery R/L repair of plantar fasciitis and removal of heel spurs History of laparoscopy History of tooth extraction Family History Grandmother (Paternal) Family history of diabetes mellitus Family/Other Chiari malformation Venous thrombosis Grandmother Stroke Mother Hypothyroidism Father Mitral valve prolapse Grandmother (Maternal) Breast cancer Denies family history of Ovarian cancer Colorectal cancer Social History Smoking Status: Never smoker Second Hand Exposure: No; Do You Dip or Chew Tobacco: No; Hx Alcohol Use: No Hx Substance Use: No Preferred Language: Frisian Communication Ability: Effective Board Operator Required: No Beliefs That Will Affect Care: None marital status: Current Living Situation: Family Current Living Situation Comment: lives with the and children current occupational status: employed 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 Speech and thought process appropriate. Mood and affect appropriate. Cognition intact. Head: Normocephalic and atraumatic. ENT: No evidence of nasal or oral mucosal lesions. Mucous membranes are moist. Eyes: Pupils equal round reactive to light. Neck: Supple without adenopathy and full range of motion. Abdomen: Soft and nondistended. No organomegaly. Bowel sounds active. Minimally tender directly over the PEG tube wound site. Dressing was not removed for visual inspection. No generalized tenderness to palpation. No rebound or guarding. Neurologic: Cranial nerves grossly intact. Ambulatory function not witnessed Results (Pain Clinic) Diagnostic Review CT Findings: [place], [place] [phone] CT Scan Report Patient: FAMILIA CHONG Admit Date: 11/25/24 MR#: [id number] Address1: [address] [place] [address] Acct ID:[id number] Address2: Date: 1980 [facility] Zip: [place] [address] Age: 44 Location: ED Sex: F Room/Bed: Att Phy: Diagnosis: WOULD ON ABD, WANTS CHECK AND CARE Taisha Phy: Silvana Mcgarry CRNP Service Date: 11/25/24 [facility] Phy: Interpreting Phy: Suki Hudson MDAcecily Phy: Ordering Phy: Edis Murphy PA-C cc: ~ EXAM: CT Abdomen and Pelvis Without Intravenous Contrast INDICATION: Abdominal pain. Recent PEG tube placement. Tube drainage. TECHNIQUE: Axial computed tomography images of the abdomen and pelvis without intravenous contrast. Sagittal and coronal reformatted images were created and reviewed. This CT exam was performed using one or more of the following dose reduction techniques: automated exposure control, adjustment of the mA and/or kV according to patient size, and/or use of iterative reconstruction technique. Oral contrast was administered. COMPARISON: 10/06/2024 FINDINGS: Limitations: None. Lung bases: No abnormality noted. Pleural space: No visualized pleural effusion or pneumothorax. Heart: No abnormality noted. Mediastinum: No abnormality noted. ABDOMEN: Liver: Lack of intravenous contrast limits detection of some masses. No abnormality noted. Gallbladder and bile ducts: Cholecystectomy. No ductal dilation or stone noted. Pancreas: No pancreatic mass, calcification, inflammation or ductal dilation noted. Spleen: No significant abnormality noted. Adrenals: No significant abnormality noted. Kidneys and ureters: No abnormality noted. No stones. No hydronephrosis. No significant perinephric fluid. Stomach and bowel: No contrast extravasation noted from the stomach. Moderate amounts of stool and fluid throughout the colon. No bowel obstruction. PELVIS: Appendix: No findings to suggest acute appendicitis. Bladder: Appears normal for the degree of filling. No stones or inflammation. No large mass. Masses may not be detected in the absence of opacification. Reproductive: No abnormalities noted. ABDOMEN and PELVIS: Intraperitoneal space: No free air. No significant fluid collection. Bones/joints: No acute changes. Soft tissues: 8 cm proximal to the umbilicus is an area of marked induration along what is likely a chest tube tract extending from the anterior gastric wall through the abdominal wall to the skin measuring 2.1 x 2.1 x 2.8 cm. No loculation. Surrounding subcutaneous cellulitis noted. No radiopaque foreign body. Vasculature: No abdominal aortic aneurysm. Lymph nodes: No pathologically enlarged lymph nodes. IMPRESSION: Phlegmon along the gastrostomy tube tract without loculation. The track appears contiguous with the anterior gastric wall and extends to the skin. No radiopaque foreign body noted. ACT 112: N/A Electronically signed by Suki Hudson 11-25-2024 2:08 PM Dictated: 11/25/24 [id number] Transcribed:
[2024-11-30] MEDS: HYDROCORTISONE 10 MG TAB PO STA (13:22)
[2024-11-30] MEDS: traMADol HCL 50 MG TABLET PO PRN (17:33)
[2024-11-30] MEDS: HYDROCORTISONE 10 MG TAB PO SCH (18:11)
[2024-11-30] MEDS: POLYETHYLENE (MIRALAX) 17 GM PACK PO SCH (18:13)
[2024-12-01 08:09] LABS: Hematocrit (blood only) 34.1 % (37.0-47.0); Hemoglobin 11.5 g/dl (12.0-16.0); Mean Corpuscular Hemoglobin 30.4 pg (25.0-34.0); Mean Corpuscular Hgb Conc 33.7 g/dL (32.0-36.0); Mean Corpuscular Volume 90.2 fL (80.0-100.0); Mean Platelet Volume 11.9 fL (9.4-12.4); Platelet Count 142 K/uL (130-400); RDW Coefficient of Variation 12.4 % (11.5-14.5); RDW Standard Deviation 40.6 fL (36.4-46.3); Red Blood Count 3.78 M/uL (4.20-5.40); White Blood Count 4.09 K/ul (4.8-10.8)
[2024-12-01] MEDS: HYDROCORTISONE 10 MG TAB PO SCH (09:16)
--- NOTE | 2024-12-01 09:25 | Hospitalist Progress Note ---
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 Presented to ER for poor PO intake and ongoing pain control. Had removal of dislodged PEG tube and was seen by GI who recommended PO abx and were not prescribed and discharged home and represented the following day with dressing saturation of yellow-greenish fluid with severe pain to the area. CTAP ordered on admission which showed phlegmon along gastrostomy tract without loculation. #Pain around Peg tube site /hx of gastric sleeve /infected peg site and plegmon GI consulted - recommend culture , twice daily PPI Culture: staph, guillory sensitive Zosyn IV initially and then converted 11/27 given cx however ongoing issues/surgery consulted and rec back on IV abx F/u repeat cx from 11/30 Repeat CTAP today w/ ongoing phlegmon along gastrostomy tract, no abscess/fluid collection but message to surgery and rec to complete course on IV abx Asked transfer center to also push imaging to [facility] for her surgeon to review/discuss Remains on Zosyn IV, diet as tolerated. No significant dehydration on exam Pain control: tramadol made more nauseated, switched back to oxy, discussed w/ pain and increased to 15mg prn for trial. encouraged to LIMIT/avoid IV. Is moving bowels Heparin SQ for DVT proph Trial hydrocortisone as well given random borderline low w/ borderline BPs, but unclear if that made improvement today vs ongoing IV abx and will continue for now but likely able to dc Monitor labs/exam in AM, can reach back to surgery as needed. Ongoing wound care Mental health Continue home meds DVT px: heparin SQ Dispo: continued inpatient stay on IV abx, follow up on cx from 12/01 and will plan to discuss w/ prior surgeon as needed once imaging reviewed but otherwise would plan to complete course IV abx. Monitor for diarrhea w/ ongoing use, cdiff check if needed Admission and Anticipated Discharge Date Admission Date: November 27, 2024 Supervising Physician Co-Signing Physician Notes The patient was not seen by me. The chart was reviewed. Case discussed with ORTEGA Smith. Agree with assessment and plan Subjective Eval this morning, resting in bed. Waiting for repeat CTAP Moved bowels overnight. Reports oxy better than tramadol which makes her more nauseated. Appears more comfortable on exam, will see about oxy 15mg trial to avoid IV morphine. Discussed if CTAP findings can reach out to her surgeon at [facility] for review for further recs but remains on IV abx Physical Exam 2 Physical Exam: General: 44yo female laying in bed, appears improved compared to yesterday, moved bowels/awaiting CT, in room Head atraumatic, normocephalic, mm acceptable, trachea midline Resp: even/unlabored, no w/c/r, on room air CV: RRR, no m/r/g, no pitting edema GI: +BS, +DECREASED tenderness around site, some drainage to dressing but no surrounding cellulitis, remains soft, no overt guarding/rebound or rigidity MSK/Neuro: nonfocal, no confusion/slurred speech, answering questions appropriately Psych: AOx3 Results & Data Results & Data Vital Signs (Past 12 Hours) Vital Signs Temp Pulse Resp BP Pulse Ox O2 Del Method 12/01/24 07:49 36.7 C 72 16 95/60 L 97 Room Air Laboratory Results 12/01/24 07:11 12/01/24 07:21 PG Care Time/CCT Total # of Minutes Spent Total Time Spent with Patient: Total time spent is greater than 50% in coordination of care (as documented) at patient's floor/unit and/or counseling patient: Coding Level of Care Code 41917 SUB INP/OBS CARE 3/50MIN Diagnoses Pain around percutaneous endoscopic gastrostomy (PEG) tube site, initial encounter T85.848A Encounter type: initial encounter (1) Pain around PEG tube site Encounter type: initial encounter Qualified Code(s): T85.848A - Pain due to other internal prosthetic devices, implants and grafts, initial encounter
[2024-12-01 11:27] LABS: Calcium 8.5 mg/dl (8.6-10.3); Creatinine Clr Calc Pharmacy 75.2 ml/min; Magnesium 1.9 mg/dl (1.7-2.4); Potassium 3.7 mmol/L (3.5-5.1)
[2024-12-01 11:35] LABS: Adenovirus F 40/41 PCR Not Detected (NotDetected); Astrovirus PCR Not Detected (NotDetected); Campylobacter PCR Not Detected (NotDetected); Cryptosporidium PCR Not Detected (NotDetected); Cyclospora cayetanensis PCR Not Detected (NotDetected); Entamoeba histolytica PCR Not Detected (NotDetected); Enteroaggregative E.coli(EAEC) Not Detected (NotDetected); Enteropathogenic E.coli (EPEC) Not Detected (NotDetected); Enterotoxigenic E.coli (ETEC) Not Detected (NotDetected); Giardia lamblia PCR Not Detected (NotDetected); Norovirus GI/GII PCR Not Detected (NotDetected); Plesiomonas shigelloides PCR Not Detected (NotDetected); Rotavirus A PCR Not Detected (NotDetected); Salmonella PCR Not Detected (NotDetected); Sapovirus PCR Not Detected (NotDetected); Shiga-like Toxin E.coli (STEC) Not Detected (NotDetected); Shigella/Enteroinvasive E.coli Not Detected (NotDetected); Vibrio cholerae PCR Not Detected (NotDetected); Vibrio species PCR Not Detected (NotDetected); Yersinia enterocolitica PCR Not Detected (NotDetected)
[2024-12-01] MEDS: OPTIRAY 320 100ml IV ONE (11:57)
--- NOTE | 2024-12-01 12:21 | CT Scan Report ---
ABDOMEN AND PELVIS CT WITH IV AND ORAL CONTRAST CT DOSE: 888.32 mGy.cm HISTORY: ongoing abd pain, infected peg tube TECHNIQUE: Multiaxial CT images of the abdomen and pelvis were performed following the IV administrat ion of 90 cc of Optiray and oral contrast. A dose lowering technique was utilized adhering to the pr inciples of PHILL. COMPARISON STUDY: 11/25/2024 FINDINGS: ABDOMEN: The phlegmon along the gastrostomy tract persists but is decreased. No abscess seen. Gastros bouchra tract communicates with the anterior stomach. Gallbladder is surgically absent. Liver, pancreas, and adrenal glands are unremarkable. Stable mild splenomegaly. Kidneys show no hydronephrosis or sade culi. No abdominal aortic aneurysm. Pelvis: Uterus is absent. No adnexal mass. Urinary bladder is decompressed. There is minimal retained stool. No bowel inflammation or obstruction. No free fluid, free air, or abscess. No enlarged adenop athy. Osseous structures: No acute osseous findings. IMPRESSION: 1. Mild phlegmon along the gastrostomy tract has improved. No abscess seen. 2. No other acute findings seen. ACT 112: Negative or not required by law. The above report was generated using voice recognition software. It may contain grammatical, syntax o r spelling errors. Electronically signed by: Keyshawn Cole M.D. 12/01/2024 12:18 PM
[2024-12-01] MEDS: oxyCODONE HCL IR 5 MG TAB (IMMEDIATE RELEASE) PO PRN (12:56)
[2024-12-01] MEDS: MULTIVITAMIN TAB PO SCH (17:08)
[2024-12-02 07:08] LABS: Basophils # (auto) 0.03 K/uL (0.00-0.20); Basophils % (auto) 0.6 %; Eosinophils # (auto) 0.14 K/uL (0.00-0.50); Hematocrit (blood only) 33.6 % (37.0-47.0); Hemoglobin 11.4 g/dl (12.0-16.0); Immature Granulocytes # (auto) 0.01 K/uL (0.01-0.20); Immature Granulocytes % (auto) 0.2 %; Lymphocytes # (auto) 1.91 K/uL (1.20-3.40); Lymphocytes % (auto) 40.5 %; Mean Corpuscular Hemoglobin 30.8 pg (25.0-34.0); Mean Corpuscular Hgb Conc 33.9 g/dL (32.0-36.0); Mean Corpuscular Volume 90.8 fL (80.0-100.0); Mean Platelet Volume 11.6 fL (9.4-12.4); Monocytes # (auto) 0.21 K/uL (0.11-0.59); Monocytes % (auto) 4.4 %; Neutrophils # (auto) 2.42 K/uL (1.40-6.50); Neutrophils % (auto) 51.3 %; Platelet Count 132 K/uL (130-400); RDW Coefficient of Variation 12.6 % (11.5-14.5); RDW Standard Deviation 41.2 fL (36.4-46.3); White Blood Count 4.72 K/ul (4.8-10.8)
[2024-12-02 07:27] LABS: Albumin Globulin Ratio 1.8 (0.9-2); Albumin Level 3.2 gm/dl (3.4-5.0); BUN Creatinine Ratio 6.2 (10-20); Bilirubin,Total 0.4 mg/dl (0.2-1.0); Calcium 8.4 mg/dl (8.6-10.3); Creatinine Clr Calc Pharmacy 57.9 ml/min; Globulin 1.8 gm/dl (2.5-4.0); Magnesium 1.9 mg/dl (1.7-2.4); Potassium 3.5 mmol/L (3.5-5.1)
--- NOTE | 2024-12-02 08:44 | Hospitalist Progress Note ---
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 Presented to ER for poor PO intake and ongoing pain control. Had removal of dislodged PEG tube and was seen by GI who recommended PO abx and were not prescribed and discharged home and represented the following day with dressing saturation of yellow-greenish fluid with severe pain to the area. CTAP ordered on admission which showed phlegmon along gastrostomy tract without loculation. #Pain around Peg tube site /hx of gastric sleeve /infected peg site and plegmon GI consulted - recommend culture , twice daily PPI . Cx w/ pansensitive staph. Zosyn converted to Augmentin 11/27 but surgery consulted for ongoing pain and rec continue/complete course IV. Did discuss w/ [facility] surgeon who felt PO abx should be fine and could complete total 2wk course/no need for transfer Is tolerating regular diet Repeaet cx staph/lisa from 11/30 and will follow sensitivities but if sensitive transition to PO augmentin in AM Pain appears out of proportion to exam and repeat CTAP w/o abscess or fluid collection Pain improved on exam 12/01 and review of medications after increased oxycodone to 15mg prn did not take any Morphine IV since 10am on 12/01 but now reporting tenderness is worse. Cymbalta 20mg trial to see if effective/fibromyalgia type pain? She reports use gabapentin in the past without improvement ?aspect of seeking behavior, see prior dc summary w reports for similar. Did decrease morphine to 1mg IV and rec to avoid but is available if absolutely needed May need to reach back out to GI for alternative consideration vs psych eval? Cdiff testing sent 12/01 given ongoing abx and moving her bowels (no diarrhea reported) but should monitor Heparin SQ for DVT proph Hopeful dc 12/03 on PO pain meds w/ follow up Dr Villanueva 1-2 weeks per prior surgeon discussion [facility] Dr Adames Mental health Continue home meds escitalopram 20mg, buspar 15mg BID, hydroxyzine 50mg, topiramate 100mg consider BHU/psych consult in AM to see if contributing/adj, have added cymbalta 20mg daily/monitor DVT px: heparin SQ Dispo: continued inpatient stay on IV abx but if pansensitive will de-escalate to PO abx for course. ?dc 12/03 pending pain control/exam Admission and Anticipated Discharge Date Admission Date: November 27, 2024 Supervising Physician Co-Signing Physician Notes The patient was not seen by me. The chart was reviewed. Case discussed with ORTEGA Smith. Agree with assessment and plan Subjective Eval this morning, resting in bed. Appears comfortable but reporting is more tender today. Drainage serous, discussed imaging results and discussion with surgeon at [facility] and no need for transfer. Discussed continued abx, cdiff negative and will monitor final culture but if ongoing issues maybe reach back out to GI to consider. Discussed alternative medications like gabapentin which she reports she has tried but not tried Cymbalta which sometimes can help with pain and will start low dose/monitor. Orthostatic VS negative, no sx w/ her low BP. Physical Exam 2 Physical Exam: General: 44yo female laying in bed, appears improved compared to yesterday but reporting abdominal tenderness worse Head atraumatic, normocephalic, mm acceptable, trachea midline Resp: even/unlabored, no w/c/r, on room air CV: RRR, no m/r/g, no pitting edema GI: +BS, serous drainage, soft, no surrounding cellulitis but reporting increased tenderness but without guarding/rigidity MSK/Neuro: nonfocal, no confusion/slurred speech, answering questions appropriately Psych: AOx3, flat affect at times Results & Data Results & Data Vital Signs (Past 12 Hours) Vital Signs Temp Pulse Resp BP BP Pulse Ox O2 Del Method 12/02/24 07:19 36.9 C 69 14 86/52 L 98 Room Air 12/01/24 21:01 36.8 C 64 16 90/56 L 97 Room Air Laboratory Results 12/02/24 06:26 12/02/24 06:26 PG Care Time/CCT Total # of Minutes Spent Total Time Spent with Patient: Total time spent is greater than 50% in coordination of care (as documented) at patient's floor/unit and/or counseling patient: Coding Level of Care Code 51691 SUB INP/OBS CARE 3/50MIN Diagnoses Pain around percutaneous endoscopic gastrostomy (PEG) tube site, initial encounter T85.848A Encounter type: initial encounter Anxiety F41.9 Depression F32.9 (1) Pain around PEG tube site Encounter type: initial encounter Qualified Code(s): T85.848A - Pain due to other internal prosthetic devices, implants and grafts, initial encounter
[2024-12-02] MEDS: DULoxetine HCL 20 MG CAP PO SCH (12:53)
--- NOTE | 2024-12-03 08:34 | Hospitalist Progress Note ---
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 Presented to ER for poor PO intake and ongoing pain control. Had removal of dislodged PEG tube and was seen by GI who recommended PO abx and were not prescribed and discharged home and represented the following day with dressing saturation of yellow-greenish fluid with severe pain to the area. CTAP ordered on admission which showed phlegmon along gastrostomy tract without loculation. #Pain around Peg tube site /hx of gastric sleeve /infected peg site and phlegmon GI consulted Cx obtained, staph aureus, pansensitive PPI twice daily continued Initially on Zosyn IV, converted to Augmentin given cx but ongoing issues/repeat imaging w/ ongoing phlegmon but no abscess/fluid collection and surgery consulted and probed w/o collection and discussed w/ [facility] surgeon prior and no need for tx but ok w/ ongoing abx for 2 wk course and rec f/u with Dr Villanueva in next 1-2 weeks Cdiff negative Ongoing pain control issues and had prior increased oxycodone to 15mg w/ good results and reporting ongoing/worse tenderness today however appeared better on exam w/ some local irritation and bactroban/nystatin to be applied but repeat cx discussed and again pansensitive and plan to switch back to PO augmentin to complete course Am NOT increasing oxycodone to 20mg per request but did discuss w/ pain management as consulted last week and they rec'd could consider nucynta 50mg prn and has been changed/titrate up to 100mg but do have concerns for seeking behavior and prior providers per review of chart also indicating such. Did give cymbalta 20mg PO x 1 on 12/02 and didn't need the IV meds but was NOT agreeable to try continuing and seeing if improvement as usually side effects improve after a little bit Monitor response to N[place]cynta but consideration for psych consult in AM as well. Mental health Continue home meds w/ escitalopram 20mg, buspar 15mg BID, hydroxyzine 50mg, topiramate 100mg Discussed trial gabapentin and she denied any help with that in the past but agreed to trial cymbalta as above but declined ongoing use Montioring pain adjustment per pain management discussion but if ongoing issues/seeking behavior plan for psych consultation in AM DVT px: heparin SQ Dispo: continued inpatient stay for pain control Admission and Anticipated Discharge Date Admission Date: November 27, 2024 Supervising Physician Co-Signing Physician Notes The patient was not seen by me. The chart was reviewed. Case discussed with ORTEGA Smith. Agree with assessment and plan Subjective Eval this morning, in room. Appears comfortable but reporting ongoing tenderness, increased when having drainage. Currently serous but does have some fungal appearance/topical irritation and will order bactroban/nystatin and monitor. She reported nausea with cymbalta. Discussed if able to tolerate could continue and usually subsides but she refused this morning/will avoid for now . Discussed pain control, oxy working but inquiring about increase. Discussed at 15mg and reached out to pain management for alternative considerations and rec for Nucynta 50mg and will try/monitor. Physical Exam 2 Physical Exam: General: 44yo female laying in bed, in room, appears improved but reporting worse pain/requesting increase in PO oxycodone dosing, NAD Head atraumatic, normocephalic, mm acceptable, trachea midline Resp: even/unlabored, no w/c/r, on room air CV: RRR, no m/r/g, no pitting edema GI: +BS throughout, soft, drainage clear, does have some localized skin irritation/yeast appearance but no significant cellulitis MSK/Neuro: nonfocal, no confusion/slurred speech, answering questions appropriately Psych: AOx3, flat affect at times Results & Data Results & Data Vital Signs (Past 12 Hours) Vital Signs Temp Pulse Resp BP BP Pulse Ox O2 Del Method 12/03/24 07:55 36.7 C 57 L 15 89/56 L 97 Room Air 12/02/24 22:55 37.1 C 69 16 102/67 97 Room Air Laboratory Results 12/02/24 06:26 12/02/24 06:26 PG Care Time/CCT Total # of Minutes Spent Total Time Spent with Patient: Total time spent is greater than 50% in coordination of care (as documented) at patient's floor/unit and/or counseling patient: Coding Level of Care Code 22915 SUB INP/OBS CARE MIN Diagnoses Pain around percutaneous endoscopic gastrostomy (PEG) tube site, initial encounter T85.848A Encounter type: initial encounter Anxiety F41.9 Depression F32.9 (1) Pain around PEG tube site Encounter type: initial encounter Qualified Code(s): T85.848A - Pain due to other internal prosthetic devices, implants and grafts, initial encounter
[2024-12-03] MEDS: TAPENTADOL HCL 50 MG TAB PO PRN (11:38)
[2024-12-03] MEDS: NYSTATIN CR 15 GM TUBE EXT SCH (13:42)
[2024-12-03] MEDS: MUPIROCIN 2% OINT 22 GM TUBE EXT SCH (13:43)
[2024-12-03] MEDS: ACETAMINOPHEN 500 MG TAB PO PRN (20:42)
[2024-12-04 07:37] LABS: BUN Creatinine Ratio 7.5 (10-20); Calcium 8.5 mg/dl (8.6-10.3); Creatinine Clr Calc Pharmacy 70.4 ml/min; Potassium 3.6 mmol/L (3.5-5.1)
[2024-12-04 07:38] LABS: Hematocrit (blood only) 34.2 % (37.0-47.0); Hemoglobin 11.7 g/dl (12.0-16.0); Mean Corpuscular Hemoglobin 30.9 pg (25.0-34.0); Mean Corpuscular Hgb Conc 34.2 g/dL (32.0-36.0); Mean Corpuscular Volume 90.2 fL (80.0-100.0); Mean Platelet Volume 11.4 fL (9.4-12.4); Platelet Count 145 K/uL (130-400); RDW Coefficient of Variation 12.8 % (11.5-14.5); Red Blood Count 3.79 M/uL (4.20-5.40); White Blood Count 3.82 K/ul (4.8-10.8)
--- NOTE | 2024-12-04 07:45 | Hospitalist Progress Note ---
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 Presented to ER for poor PO intake and ongoing pain control. Had removal of dislodged PEG tube and was seen by GI who recommended PO abx and were not prescribed and discharged home and represented the following day with dressing saturation of yellow-greenish fluid with severe pain to the area. CTAP ordered on admission which showed phlegmon along gastrostomy tract without loculation. #Pain around Peg tube site /hx of gastric sleeve /infected peg site and phlegmon GI consulted Remains on PPI once daily, cdiff neg. Monitor for diarrhea w/ ongoing abx and cx obtained with staph aureus which was pansensitive but placed on Zosyn initially and converted to Augmentin given cx but ongoing issues/repeat imaging (see prior notes) w/ ongoing phlegmon (no abscess/fluid collection) per surgery consult and he did probed w/o collection felt. Discussed w/ [facility] surgeon prior and no need for tx but ok w/ ongoing abx for 2 wk course Repeat cx again pansensitive, switched back to PO AUGMENTIN and plan 2 wk course (on day 9) and f/u with Dr Villanueva in next 1-2 weeks. Remains on PPI once daily, cdiff neg. Monitor for diarrhea w/ ongoing abx Had ongoing pain control issues, pain consult undertaken. Trial Oxy up to 15mg w/o significant improvement and eventually switched to Nucynta 50mg q4h prn for pain per discussion w/ pain management JOSE and [employer]TER ON SUCH and planned for potential dc however per CM insurance not active through [facility] and will need further investigation/[place] application if lapsed as Nucynta likely NOT affordable without coverage and will remain inpatient until addressed. May need to reach back out to pain for alternative recs otherwise Notable did start cymbalta 20mg daily for additional pain control,mild nausea but improved prior w/ such and encouraged continued use and would rx at dc and f/u PCP about continued titration Mental health Continue home meds: escitalopram 20mg, buspar 15mg BID, hydroxyzine 50mg, topiramate 100mg. Denied gabapentin trial and wasn't thrilled w/ cymbalta but is taking and encouraged taking at least a week. -Rx 20mg cymbatla at dc and rec f/u PCP, outpatient psych. ?question underlying eating disorder DVT px: heparin SQ Dispo: continued inpatient stay to address insurance issues as nucynta >300$ even with good Rx coupon Admission and Anticipated Discharge Date Admission Date: November 27, 2024 Subjective Evaluated this morning, feeling better. Pain controlled with nucynta. Will see about ding check, consideration for dc today. skin improved/will continue topical but discussed to switch dressing to prevent moisture/yeast and will rx topical. Feels stable for dc today if able to get the pain medication. did take cymbalta this morning/mild nausea but toleraing and rec to continue and will rx and rec continue f/u pcp and titration up for sx as able. Questions/concerns addressed at this time. Physical Exam 2 Physical Exam: General: 44yo female laying in bed, appears improved/more comfortable HEENT; mm stable Resp: even/unlabored, on room air CV: RRR, no m/r/g, no pitting edema/calf tenderness GI: +BS, soft, some yeast appearance/smell from kathrin pad/surrounding skin(improved since topical agents) and remains serous from umbilicus, decreased tenderness/no rebound or guarding MSK/Neuro: nonfocal, no confusion/slurred speech, answering questions appropriately Psych: AOx3, flat affect at times Results & Data Results & Data Vital Signs (Past 12 Hours) Vital Signs Temp Pulse Resp BP Pulse Ox O2 Del Method 12/03/24 19:54 36.7 C 78 16 100/65 100 Room Air Laboratory Results 12/04/24 06:39 12/04/24 06:39 PG Care Time/CCT Total # of Minutes Spent Total Time Spent with Patient: Total time spent is greater than 50% in coordination of care (as documented) at patient's floor/unit and/or counseling patient: Coding Level of Care Code 69495 SUB INP/OBS CARE 3/50MIN Diagnoses Pain around percutaneous endoscopic gastrostomy (PEG) tube site, initial encounter T85.848A Encounter type: initial encounter Anxiety F41.9 Depression F32.9 (1) Pain around PEG tube site Encounter type: initial encounter Qualified Code(s): T85.848A - Pain due to other internal prosthetic devices, implants and grafts, initial encounter
[2024-12-05 07:25] VITALS: BP 92/58; RESP 18; TEMP 97.9; O2SAT 98
[2024-12-05] MEDS ORDERED: LIDOCAINE 2% JELLY 5 ML TUBE EXT PRN (08:56)
--- NOTE | 2024-12-05 11:25 | Discharge Summary ---
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 Presented to ER for poor PO intake and ongoing pain control. Had removal of dislodged PEG tube and was seen by GI who recommended PO abx and were not prescribed and discharged home and represented the following day with dressing saturation of yellow-greenish fluid with severe pain to the area. CTAP ordered on admission which showed phlegmon along gastrostomy tract without loculation. Was seen by GI -recommend PPI to facilitate closure of internal gastric orifice. Seen by General surgery, recommended continue abx. Wound culture with staph aureus, received zosyn and transitioned to Augmentin for 14 day course. f/u with Dr Villanueva in next 1-2 weeks. Had ongoing pain control issues, was seen by pain management. Cymbalta was started. Did well on Nucynta but not afforable and current lapse in insurance. Was agreeable to home with oxycodone 10mg q6H prn. Can discuss alternatives with PCP if pain is not controlled. Mental health Continue home meds: escitalopram 20mg, buspar 15mg BID, hydroxyzine 50mg, topiramate 100mg. Cymbalata added Dispo: discharge to home today Notes For Next Care Provider Medication Changes From Visit regla added 4.5 more days of augmetin Admission HPI Per Admitting Provider Pt is a 44 y/o female who has pmh of seleeve gastrectomy 01/04, s/p PEG tube placement for poor oral intake, who presented to ER yesterday for removal of dislodged PEG tube. Pt states that the dressing overnight has been saturated with yellowish-green fluid. She also is having severe pain to the area. Case was discussed with GI who recommended abdominal CT with contrast. Results showed phlegmon along the gastrostomy tube tract without loculation. GI recommended discharge on Augmentin, however patient complaining of intractable abdominal pain. Will be admitted for pain management and further treatment with IV abx. Discharge Exam General: NAD, VS as above, lying in bed, appears fatigued Resp: normal respiratory effort, lungs clear to auscultation CV: RRR, no murmur, Abd: soft, tender with dressing removal - peg tube removal site with mild erythema, no erythema to surrounding skin. serous drainage on gauze Extremities: Moves all extremities, no edema Neuro: A&O x3, Discharge Plan Discharge Items Patient Disposition: Home - Self-Care Reason For Visit: PEG REMOVAL SITE INFECTION Discharge Diagnosis: PEG tube site infection Condition on Discharge: Good Activity: Resume your previous activity Weightbearing: Full weightbearing Non-emergency contact: Primary Care Provider and Surgeon Call non-emergency contact if: you have any medication questions, your symptoms worsen, your pain is concerning for you and your temperature is above 101 Follow-up/Referrals: Silvana Mcgarry CRNP [Primary Care Provider] - 12/13/24 1:00 pm (follow up within one week ) Kervin Villanueva DO [Outside Practitioners] - (follow up 1-2 weeks ) Diet: Regular Addtl Attending Provider Instructions: You have been hospitalized for abdominal pain and infection from recent tube removal. Your cultures were sensitive to oral antibiotics and will be continued on Augmentin for 4 more days. Pain medications have been utilized for discomfort and have been continued but please monitor for constipation as this can worsen pain. You have been prescribed oxycodone 10mg every 6 hours as needed for pain. If your pain is improving, you can also use 5mg. If this does not work, you can talk to your PCP about Nucyenta. Duloxetine (cymbalta) has also been started to help with your pain. Nystatin and Bactroban cream have been prescribed to continue with wound care. Please follow up with primary care in the next 7-10 days to monitor your progress. Please follow up with Dr. Villanueva in the next 1-2 weeks. Please return to the ER for any increased pain, fever/chills, inability to keep up with oral intake, or for any other symptoms concerning for you. It has been a pleasure being a part of the medical team providing for you while you have been in the hospital. Take care! Pending Studies at Discharge: No Stand-Alone Forms: My FIGS, Smoking Cessation Medications and DC Order Prescriptions: New amoxicillin-pot clavulanate 875-125 mg Tablet 1 tab PO BIDM Qty: 9 0RF duloxetine [Cymbalta] 20 mg Capsule,Delayed Release(Dr/Ec) 20 mg PO QAM Qty: 30 0RF nystatin 100,000 unit/gram Cream 1 applic EXT TID Qty: 15 0RF mupirocin 2 % Ointment 1 applic EXT TID Qty: 15 0RF oxycodone 10 mg tablet 10 mg PO Q6H PRN (Reason: pain) Qty: 20 0RF Continued escitalopram oxalate [Lexapro] 20 mg tablet 20 mg PO QAM 90 Days Qty: 90 4RF buspirone 15 mg tablet 15 mg PO BID cyanocobalamin (vitamin B-12) 1,000 mcg Capsule 1,000 mcg PO QAM cholecalciferol (vitamin D3) [Vitamin D3] 50 mcg (2,000 unit) Capsule 50 mcg PO QAM ondansetron 8 mg Tablet,Disintegrating 8 mg PO Q8H PRN (Reason: nausea and vomiting) Qty: 30 0RF metoclopramide HCl [Reglan] 10 mg Tablet 10 mg PO DIRECTED hydroxyzine pamoate 25 mg Capsule 50 mg PO HS biotin 1 cap PO DAILY Rx Instructions: OTC unknown dose folic acid 1 tab PO DAILY Rx Instructions: OTC unknown dose magnesium 1 tab PO DAILY Rx Instructions: OTC unknown dose topiramate [Topamax] 100 mg tablet 100 mg PO QPM Aimovig Autoinjector 140 mg/mL auto-injector 140 mg subcut MONTHLY pantoprazole 40 mg tablet,delayed release (DR/EC) 40 mg PO BID Discharge Orders: Discharge Order (Routine); Ordered 12/05/24 Ordered By: Eva Galo Admission Data Admit Date/Time: 11/27/24 11:26 Attending Provider: Sharee Davila Admit Provider: Piter Bourne Primary Care Provider: Silvana Mcgarry Other Providers: Piter Bourne; Mil Cassidy; Augustine Ann; Jose G Dueñas; Marlen Gandhi Other Interventions: Discharge Summary Assessment (RN) Last Done: 12/05/24 11:33 Hospital Stay Data Consultations 11/25/24 15:56 ED Decision to Admit Stat 11/25/24 16:23 Consult Gastroenterology Stat 11/29/24 08:18 Consult Gastroenterology Routine 11/29/24 09:01 Consult General Surgery Routine 11/29/24 14:40 Consult Pain Management Routine Diagnostic Imagining Performed Abdomen/Pelvis CT 11/25/24 12:21 EXAM: CT Abdomen and Pelvis Without Intravenous Contrast INDICATION: Abdominal pain. Recent PEG tube placement. Tube drainage. TECHNIQUE: Axial computed tomography images of the abdomen and pelvis without intravenous contrast. Sagittal and coronal reformatted images were created and reviewed. This CT exam was performed using one or more of the following dose reduction techniques: automated exposure control, adjustment of the mA and/or kV according to patient size, and/or use of iterative reconstruction technique. Oral contrast was administered. COMPARISON: 10/06/2024 FINDINGS: Limitations: None. Lung bases: No abnormality noted. Pleural space: No visualized pleural effusion or pneumothorax. Heart: No abnormality noted. Mediastinum: No abnormality noted. ABDOMEN: Liver: Lack of intravenous contrast limits detection of some masses. No abnormality noted. Gallbladder and bile ducts: Cholecystectomy. No ductal dilation or stone noted. Pancreas: No pancreatic mass, calcification, inflammation or ductal dilation noted. Spleen: No significant abnormality noted. Adrenals: No significant abnormality noted. Kidneys and ureters: No abnormality noted. No stones. No hydronephrosis. No significant perinephric fluid. Stomach and bowel: No contrast extravasation noted from the stomach. Moderate amounts of stool and fluid throughout the colon. No bowel obstruction. PELVIS: Appendix: No findings to suggest acute appendicitis. Bladder: Appears normal for the degree of filling. No stones or inflammation. No large mass. Masses may not be detected in the absence of opacification. Reproductive: No abnormalities noted. ABDOMEN and PELVIS: Intraperitoneal space: No free air. No significant fluid collection. Bones/joints: No acute changes. Soft tissues: 8 cm proximal to the umbilicus is an area of marked induration along what is likely a chest tube tract extending from the anterior gastric wall through the abdominal wall to the skin measuring 2.1 x 2.1 x 2.8 cm. No loculation. Surrounding subcutaneous cellulitis noted. No radiopaque foreign body. Vasculature: No abdominal aortic aneurysm. Lymph nodes: No pathologically enlarged lymph nodes. IMPRESSION: Phlegmon along the gastrostomy tube tract without loculation. The track appears contiguous with the anterior gastric wall and extends to the skin. No radiopaque foreign body noted. ACT 112: N/A Electronically signed by Suki Hudson 11-25-2024 2:08 PM KUB X-Ray 11/29/24 08:19 KUB HISTORY: ongoing abd pain s/p peg tube removal COMPARISON STUDY: 11/25/2024 FINDINGS: There is mild retained stool. No bowel obstruction seen. No gross free air. Stable right upper quadrant surgical clips and left upper quadrant surgical suture. IMPRESSION: No acute findings. ACT 112: Negative or not required by law. The above report was generated using voice recognition software. It may contain grammatical, syntax or spelling errors. Electronically signed by: Keyshawn Cole M.D. 11/29/2024 9:28 AM Abdomen/Pelvis CT 12/01/24 09:[address] WITH IV AND ORAL CONTRAST CT DOSE: 888.32 mGy.cm HISTORY: ongoing abd pain, infected peg tube TECHNIQUE: Multiaxial CT images of the abdomen and pelvis were performed following the IV administration of 90 cc of Optiray and oral contrast. A dose lowering technique was utilized adhering to the principles of ALARA. COMPARISON STUDY: 11/25/2024 FINDINGS: ABDOMEN: The phlegmon along the gastrostomy tract persists but is decreased. No abscess seen. Gastrostomy tract communicates with the anterior stomach. Gallbladder is surgically absent. Liver, pancreas, and adrenal glands are unremarkable. Stable mild splenomegaly. Kidneys show no hydronephrosis or calculi. No abdominal aortic aneurysm. Pelvis: Uterus is absent. No adnexal mass. Urinary bladder is decompressed. There is minimal retained stool. No bowel inflammation or obstruction. No free fluid, free air, or abscess. No enlarged adenopathy. Osseous structures: No acute osseous findings. IMPRESSION: 1. Mild phlegmon along the gastrostomy tract has improved. No abscess seen. 2. No other acute findings seen. ACT 112: Negative or not required by law. The above report was generated using voice recognition software. It may contain grammatical, syntax or spelling errors. Electronically signed by: Keyshawn Cole M.D. 12/01/2024 12:18 PM Pending Results Patient Have Any Pending Studies at Discharge: No Discharge Instructions Given to Patient (Per Discharging Provider) You have been hospitalized for abdominal pain and infection from recent tube removal. Your cultures were sensitive to oral antibiotics and will be continued on Augmentin for 4 more days. Pain medications have been utilized for discomfort and have been continued but please monitor for constipation as this can worsen pain. You have been prescribed oxycodone 10mg every 6 hours as needed for pain. If your pain is improving, you can also use 5mg. If this does not work, you can talk to your PCP about Nucyenta. Duloxetine (cymbalta) has also been started to help with your pain. Nystatin and Bactroban cream have been prescribed to continue with wound care. Please follow up with primary care in the next 7-10 days to monitor your progress. Please follow up with Dr. Villanueva in the next 1-2 weeks. Please return to the ER for any increased pain, fever/chills, inability to keep up with oral intake, or for any other symptoms concerning for you. It has been a pleasure being a part of the medical team providing for you while you have been in the hospital. Take care! Total Time Total Time Spent Total Time Spent (In Minutes): Time spent day of discharge 32 minutes including direct patient care, medication reconciliation, documentation, review of labs and images, and coordination of care. Coding Level of Care Code 85791 INP/OBS DISCH >30 MIN Diagnoses Pain around percutaneous endoscopic gastrostomy (PEG) tube site, initial encounter T85.848A Encounter type: initial encounter Anxiety F41.9 Depression F32.9
[2024-12-05 11:34] VITALS: PULSE 73
== END 2024-12-05 12:01 | disposition home or self-care (01) | DRG 394 ==
LOC: 3N 11:44 → ED 11:44 → SUATTDRO 16:29 → 3N 17:59 → SUATTDRO 11-27 11:26

== ENCOUNTER 2025-03-08 12:32 | Inpatient (IN) ==
--- NOTE | 2025-03-08 12:56 | Emergency Department Note ---
Impression & Plan Bilateral leg weakness Admission ED Provider Note HPI: History obtained from patient. The patient is a 44-year-old female with history of bipolar disorder, migraine complex, history of Chiari malformation status post decompression in 2015, history of gastric sleeve with subsequent complications requiring gastric tube placement, anxiety and depression, PTSD, presents to the emergency department with chief complaint of lower back pain, lower extremity weakness, and urinary incontinence that has been ongoing for about the past 24 hours. Patient states her symptoms seem to be getting progressively worse during this timeframe. Patient denies any recent fever, denies any history of back surgery. Patient denies having any recent injections to her back. On arrival here to the ED the patient is hemodynamically stable, she otherwise appears to be in no acute distress. ROS: - Per HPI Differential Diagnosis: Cauda equina syndrome, transverse myelitis, multiple sclerosis, urinary tract infection, lumbar fracture, epidural abscess, herniated lumbar disc with radiculopathy, pyelonephritis, amongst other potential pathologies. *Outpatient medications and allergy history reviewed. PE: General: Alert, frail-appearing, no acute distress HEENT: Normocephalic, trachea midline Eyes: Extraocular eye movement is intact, no scleral erythema Pulmonary: Clear to auscultation bilaterally, no wheezing Cardio: Regular rate and rhythm GI: Abdomen is soft to palpation : No suprapubic tenderness MSK: No evidence of trauma or malformation of the extremities, no edema Skin: No evidence of rash Neuro: Alert, 2 out of 5 strength with dorsiflexion and plantarflexion of the bilateral lower extremities, limited flexion at the bilateral hips Psychiatric: Cooperative INDEPENDENT INTERPRETATIONS: dispensing and measuring optician: (As interpreted by myself): - An order was placed for continuous cardiac monitoring - Patient was noted to be in sinus rhythm with a rate of 90 Interventions provided in ED: - IV morphine, IV Zofran, IV fluid bolus, IV Ativan Medical Decision Making: IV was established and lab work obtained, patient was placed on data entry assistant. Lab work shows a mild leukopenia, hemoglobin is normal, platelet count is normal, CMP does not show any evidence of any critical findings. Urinalysis does not show any evidence of blood or infection. Given the patient's complaint of urinary incontinence with lower extremity weakness in the setting of lower back pain, MRI imaging of the lumbar spine with and without contrast was obtained and there is no evidence of cauda equina syndrome. Given the bilateral nature of the patient's symptoms in the lower extremity, in addition to focal complaint of lower back pain, I have low suspicion for an acute ischemic stroke. On reassessment the patient continues to complain of some pain in her back that radiates to her hips. She was given additional IV analgesia. This is possibly radicular pain but given that MRI imaging does not show any evidence of cord compression, I was concerned about the possibility of a demyelinating process and therefore I did discuss the patient's presentation with on-call neurology, Dr. Sparks. I did state my intent to admit the patient and he is in agreement for consultation on the inpatient service, patient will be admitted to the medicine service for further care. Patient was in agreement to this plan as was her at the bedside and the patient was placed for admission in stable condition. I did discuss the patient's presentation with the on-call admitting hospitalist, Dr. Prieto. Consultants/Discussions held with other healthcare providers: - Hospitalist, Dr. Prieto - Neurology, Dr. Sparks Disposition discussion held by myself with: - Patient and at bedside Diagnosis: 1. Lower extremity weakness, acute, bilateral, nonspecific 2. Urinary incontinence, acute 3. Lower back pain, acute 4. Bilateral lower extremity paresthesias, acute Disposition: Admission Donny Schwartz DO Emergency Medicine Past Med/Surg History Problem List (Updated 03/08/25 @ 19:38 by Reji Fair PA-C) Bilateral leg weakness Intractable back pain Cervical radiculopathy Adnexal cyst Paresthesia of left upper extremity Intermittent palpitations Allergic rhinitis due to pollen Snoring Hypersomnia CASSI III (cervical intraepithelial neoplasia III) History of claustrophobia Plantar fasciitis Mixed hyperlipidemia Binge eating disorder Metabolic syndrome Carpal tunnel syndrome, right Morbid obesity Strain of right biceps tendon Migraine without aura, not intractable, without status migrainosus Eustachian tube dysfunction Mitral valve prolapse syndrome (Acute) Vitamin B12 deficiency (Acute) Vitamin D deficiency (Acute) Degenerative disc disease Medical History Drainage from gastrostomy tube site Pain around PEG tube site Anxiety Depression Abdominal pain Bipolar I disorder, single manic episode GERD (gastroesophageal reflux disease) Hypertriglyceridemia Chiari malformation s/p decompression (~2014) No issues since per 05/12/[address] "There has been prior posterior suboccipital decompression. There is persistent caudal positioning of the cerebellar tonsils consistent with Chiari I malformation. 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 ECHO Hx of Lyme disease 2014 - antibiotic completed Hx of ectopic Anxiety and depression Morbid obesity Pre-diabetes s/p gastric sleeve procedure - no longer an issue GERD (gastroesophageal reflux disease) controlled, stable per pt Post traumatic stress disorder Deep vein thrombosis Around 2006 (LUE- unknown etiology) Headache h/o post spinal tap PAUL and generalized weakness in 2018 per 09/2020 [place] neuro note Surgical History Hx laparoscopic cholecystectomy Status post sleeve gastrectomy 12/22/23 @ [facility] Myriam Villanueva Hx of hysterectomy History of carpal tunnel release Right History of MRI Right elbow MRI (02/13/22): MAC at [facility]. No issues noted per post-op anesthesia progress note. History of surgery Chiari Malformation repair (~2014; [facility]) Hx of foot surgery R/L repair of plantar fasciitis and removal of heel spurs History of laparoscopy History of tooth extraction Family History Grandmother (Paternal) Family history of diabetes mellitus Family/Other Chiari malformation Venous thrombosis Grandmother Stroke Mother Hypothyroidism Father Mitral valve prolapse Grandmother (Maternal) Breast cancer Denies family history of Ovarian cancer Colorectal cancer Social History Smoking Status: Never smoker Second Hand Exposure: No; Do You Dip or Chew Tobacco: No; Tobacco Cessation Education Requested by Patient: No Hx Alcohol Use: No Hx Substance Use: No Preferred Language: Israeli Communication Ability: Effective Teacher Advisor Required: No Beliefs That Will Affect Care: None marital status: Current Living Situation: Spouse Current Living Situation Comment: lives with the and children current occupational status: employed 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 Other Information That Helps Us Care for You: No Feels Safe at Home: Yes Safety Concerns: Feels Safe At This Time Diet: low carbohydrate and other Diet Comment: high protein Physical Activity Frequency: 5-6 Times per Week Assistive Devices: None Allergies Allergies Allergy/AdvReac Type Severity Reaction Status Date / Time Fish Containing Products Allergy Intermediate Rash Verified 03/08/25 15:46 shellfish derived AdvReac Severe PASSED OUT Verified 03/08/25 15:46 Home Meds Home Medications Medication Instructions Recorded Confirmed cyanocobalamin (vitamin B-12) 1,000 mcg PO QAM 05/24/18 03/08/25 1,000 mcg capsule cholecalciferol (vitamin D3) 50 50 mcg PO QAM 02/11/22 03/08/25 mcg (2,000 unit) capsule (Vitamin D3) buspirone 15 mg tablet 15 mg PO BID 07/15/22 03/08/25 erenumab-aooe 140 mg/mL 140 mg subcut MONTHLY 08/28/24 03/08/25 subcutaneous auto-injector (Aimovig Autoinjector) pantoprazole 40 mg tablet,delayed 40 mg PO BID 10/06/24 03/08/25 release hydroxyzine pamoate 25 mg capsule 50 mg PO HS 11/24/24 03/08/25 metoclopramide HCl 10 mg tablet 10 mg PO QID PRN ABD DISCOMFORT 11/24/24 03/08/25 (Reglan) biotin 10 mg tablet 10 mg PO DAILY 03/08/25 03/08/25 folic acid 400 mcg tablet 0.4 mg PO DAILY 03/08/25 03/08/25 magnesium oxide 0 mg PO DAILY 03/08/25 03/08/25 topiramate 100 mg tablet (Topamax) 100 mg PO HS 03/08/25 03/08/25 Previous Rx's Medication Instructions Recorded escitalopram oxalate 20 mg tablet 20 mg PO QAM 90 days #90 tabs 03/28/24 (Lexapro) ondansetron 8 mg disintegrating 8 mg PO Q8H PRN nausea and 09/04/24 tablet vomiting #30 tabs duloxetine 20 mg capsule,delayed 20 mg PO QAM #30 caps 12/05/24 release (Cymbalta) Results & Data (ED) Vital Signs Vital Signs - 24 hr 03/08/25 12:36 03/08/25 13:03 03/08/25 17:40 Temperature 36.6 C Temperature Source Temporal Artery Scan Pulse Rate 93 H 83 78 Pulse Rate [Apical] Pulse Rate from SpO2 Sensor Respiratory Rate 16 Respiratory Effort / Characteristics Non-Labored Spontaneous Respiratory Depth Normal Respiratory Pattern Regular Blood Pressure 102/67 Blood Pressure [Left Arm] Blood Pressure Mean 78 Blood Pressure Mean [Left Arm] Blood Pressure Position Sitting Pulse Oximetry 99 Oxygen Delivery Method Room Air Sepsis Recent Fever Within 48 Hours No Sepsis New/Unexplained Change in Mental Status No Sepsis Action Taken by Nursing No Action Required 03/08/25 17:53 03/08/25 18:50 03/08/25 19:15 Temperature Temperature Source Pulse Rate 86 Pulse Rate [Apical] 77 Pulse Rate from SpO2 Sensor 87 Respiratory Rate 17 22 Respiratory Effort / Characteristics Respiratory Depth Normal Respiratory Pattern Blood Pressure 108/68 Blood Pressure [Left Arm] 107/71 Blood Pressure Mean 81 Blood Pressure Mean [Left Arm] 83 Blood Pressure Position Pulse Oximetry 98 99 99 Oxygen Delivery Method Room Air Room Air Sepsis Recent Fever Within 48 Hours Sepsis New/Unexplained Change in Mental Status Sepsis Action Taken by Nursing Laboratory Data 03/08/25 13:02 03/08/25 13:02 Lab Results 03/08/25 03/08/25 Range/Units 13:02 17:51 WBC 3.94 L (4.8-10.8) K/ul RBC 4.38 (4.20-5.40) M/uL Hgb 13.8 (12.0-16.0) g/dl Hct 39.9 (37.0-47.0) % MCV 91.1 (80.0-100.0) fL MCH 31.5 (25.0-34.0) pg MCHC 34.6 (32.0-36.0) g/dL RDW Std Deviation 40.2 (36.4-46.3) fL RDW Coeff of Zuleyma 12.1 (11.5-14.5) % Plt Count 199 (130-400) K/uL MPV 10.9 (9.4-12.4) fL Immature Gran % (Auto) 0.3 % Neut % (Auto) 57.1 % Lymph % (Auto) 35.0 % [place] % (Auto) 4.8 % Eos % (Auto) 2.0 % Baso % (Auto) 0.8 % Neut # (Auto) 2.25 (1.40-6.50) K/uL Lymph # (Auto) 1.38 (1.20-3.40) K/uL [place] # (Auto) 0.19 (0.11-0.59) K/uL Eos # (Auto) 0.08 (0.00-0.50) K/uL Baso # (Auto) 0.03 (0.00-0.20) K/uL Immature Gran # (Auto) 0.01 (0.01-0.20) K/uL Sodium 139 (136-145) mmol/L Potassium 3.9 (3.5-5.1) mmol/L Chloride 108 H (98-107) mmol/L Carbon Dioxide 25 (21-32) mmol/L Anion Gap 6 (3-11) BUN 10 (6-23) mg/dl Creatinine 0.85 (0.6-1.2) mg/dl Est Cr Clr Drug Dosing Not Reportable eGFR 87.12 BUN/Creatinine Ratio 11.8 (10-20) Glucose 84 (70-99(Fasting)) mg/dl Calcium 9.1 (8.6-10.3) mg/dl Total Bilirubin 0.5 (0.2-1.0) mg/dl AST 12 L (13-39) U/L ALT 12 (7-52) U/L Alkaline Phosphatase 60 (34-104) U/L Total Protein 6.7 (6.0-8.3) gm/dl Albumin 4.3 (3.4-5.0) gm/dl Globulin 2.4 L (2.5-4.0) gm/dl Albumin/Globulin Ratio 1.8 (0.9-2) Lipase 13 (11-82) U/L Urine Color Yellow Urine Appearance Clear (Clear) Urine pH 6.5 (4.5-7.5) Ur Specific [place] 1.010 (1.000-1.030) Urine Protein Negative (Negative) Urine Glucose (UA) Negative (Negative) Urine Ketones Negative (Negative) Urine Blood Negative (Negative) Urine Nitrite Negative (Negative) Urine Bilirubin Negative (Negative) Urine Urobilinogen Negative (Negative) Ur Leukocyte Esterase Negative (Negative) Urine Comment Lyme Disease Screen Negative (Negative) Administered Medications Discontinued Medications Gadobutrol (Gadobutrol 65ml Vial) 6.5 ml IV ONCE ONE Stop: 03/08/25 14:13 Last Admin: 03/08/25 14:12 Dose: 6.5 ml Documented By: SONYA Sodium Chloride (Nss) 500 mls @ 999 mls/hr IV .Q31M STA Stop: 03/08/25 13:18 Last Infusion: 03/08/25 13:58 Dose: Infused Documented By: Admin: 03/08/25 13:05 Dose: 999 mls/hr Documented By: MARIO Lorazepam (Lorazepam 2 Mg/1 Ml Vial) 1 mg IV NOW STA Stop: 03/08/25 13:19 Last Admin: 03/08/25 13:30 Dose: 1 mg Documented By: MARIO Morphine Sulfate (Morphine Sulfate 4 Mg/Ml 1 Ml Carp\\Vial) 4 mg IV NOW STA Stop: 03/08/25 12:49 Last Admin: 03/08/25 13:06 Dose: 4 mg Documented By: MARIO Morphine Sulfate (Morphine Sulfate 4 Mg/Ml 1 Ml Carp\\Vial) 4 mg IV NOW STA Stop: 03/08/25 15:03 Last Admin: 03/08/25 15:13 Dose: 4 mg Documented By: MARIO Morphine Sulfate (Morphine Sulfate 4 Mg/Ml 1 Ml Carp\\Vial) 4 mg IV NOW STA Stop: 03/08/25 18:47 Last Admin: 03/08/25 18:50 Dose: 4 mg Documented By: BEE Morphine Sulfate (Morphine Sulfate 4 Mg/Ml 1 Ml Carp\\Vial) 4 mg IV NOW STA Stop: 03/08/25 19:51 Last Admin: 03/08/25 22:17 Dose: 4 mg Documented By: MONSERRAT Ondansetron HCl (Ondansetron Inj 2 Mg/Ml 2 Ml Vial) 4 mg IV NOW STA Stop: 03/08/25 12:49 Last Admin: 03/08/25 13:06 Dose: 4 mg Documented By: MARIO Imaging Data Radiologist's Impression: Lumbar Spine MRI 03/08/25 12:53 MR lumbar spine wo/w con CLINICAL HISTORY: 44 years-old Female with Lower back pain, urinary incontinance. Acute low back pain with bilateral lower extremity weakness COMPARISON: CT abdomen and pelvis 12/01/2024 TECHNIQUE: Multiplanar, multi sequence MRI of the lumbar spine was performed with and without intravenous contrast. FINDINGS: The lumbar alignment is normal. The vertebral body heights are normal. There is no T1 fracture line or marrow replacement process. The conus terminates at L1. The visualized spinal cord and cauda equina are normal. There is no paraspinal edema, mass, or prevertebral fluid collection. The intra-abdominal structures are grossly unremarkable. 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 No abnormal enhancement. Mildly motion degraded exam. Minimal lumbar levoscoliosis. Mild multilevel spondylotic spurring and facet arthrosis. T12-L1: No central canal or neural foraminal stenosis. L1-L2: No central canal or neural foraminal stenosis. L2-L3: No central canal or neural foraminal stenosis. L3-L4: Mild intervertebral disc space narrowing with small circumferential annular disc bulge. No central canal or neural foraminal stenosis. L4-L5: Mild intervertebral disc space narrowing with small circumferential annular disc bulge. Ligamentum flavum thickening with moderate facet arthrosis. No central canal or neural foraminal stenosis. L5-S1: Mild intervertebral disc space narrowing with small posterior annular disc bulge and 6 mm central disc protrusion. No central canal or neural foraminal stenosis. IMPRESSION: 1. Mild mid to lower lumbar discogenic degeneration. No significant central canal or foraminal narrowing. 2. No abnormal enhancement. ACT 112: Negative or not required by law. The above report was generated using voice recognition software. It may contain grammatical, syntax or spelling errors. Electronically signed by: Randall Gonzalez M.D. 03/08/2025 2:55 PM Discharge Plan Visit Data Chief Complaint: Back Injury/Pain Stated Complaint: BACK,LEG,HIP PAIN,INCON BLADDER,NAUSEA ED Provider: Donny Schwartz Discharge Problem: Bilateral leg weakness Patient Disposition: Admitted As Inpatient Condition: Fair Discharge Instructions Interventions: ED Discharge Assessment Last Done: 03/08/25 20:48
[2025-03-08] MEDS: SODIUM CHLORIDE 0.9% 500 ML IV STA (13:05)
[2025-03-08] MEDS: MoRPHine SULFATE 4 MG/ML 1 ML CARP\\VIAL IV STA ×4 (13:06→22:17)
[2025-03-08] MEDS: ONDANSETRON INJ 2 MG/ML 2 ML VIAL IV STA (13:06)
[2025-03-08 13:32] LABS: Hematocrit (blood only) 39.9 % (37.0-47.0); Hemoglobin 13.8 g/dl (12.0-16.0); Immature Granulocytes # (auto) 0.01 K/uL (0.01-0.20); Immature Granulocytes % (auto) 0.3 %; Mean Corpuscular Hemoglobin 31.5 pg (25.0-34.0); Mean Corpuscular Volume 91.1 fL (80.0-100.0); Platelet Count 199 K/uL (130-400); RDW Standard Deviation 40.2 fL (36.4-46.3); Red Blood Count 4.38 M/uL (4.20-5.40); White Blood Count 3.94 K/ul (4.8-10.8)
[2025-03-08 13:49] LABS: Alanine Aminotransferase 12 U/L (7-52); Albumin Globulin Ratio 1.8 (0.9-2); Alkaline Phosphatase 60 U/L (34-104); Anion Gap 6 (3-11); Bilirubin,Total 0.5 mg/dl (0.2-1.0); Blood Urea Nitrogen 10 mg/dl (6-23); Calcium 9.1 mg/dl (8.6-10.3); Carbon Dioxide 25 mmol/L (21-32); Chloride 108 mmol/L (98-107); Globulin 2.4 gm/dl (2.5-4.0); Glucose 84 mg/dl (70-99(Fasting)); Lipase 13 U/L (11-82); Potassium 3.9 mmol/L (3.5-5.1); Sodium 139 mmol/L (136-145); Total Protein 6.7 gm/dl (6.0-8.3)
[2025-03-08] MEDS: GADOBUTROL 65ML VIAL IV ONE (14:12)
--- NOTE | 2025-03-08 14:57 | Magnetic Resonance Report ---
MR lumbar spine wo/w con CLINICAL HISTORY: 44 years-old Female with Lower back pain, urinary incontinance. Acute low back kevin n with bilateral lower extremity weakness COMPARISON: CT abdomen and pelvis 12/01/2024 TECHNIQUE: Multiplanar, multi sequence MRI of the lumbar spine was performed with and without intrave nous contrast. FINDINGS: The lumbar alignment is normal. The vertebral body heights are normal. There is no T1 fracture line or marrow replacement process. The conus terminates at L1. The visualized spinal cord and cauda eq uina are normal. There is no paraspinal edema, mass, or prevertebral fluid collection. The intra-ab dominal structures are grossly unremarkable. 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 No abnormal enhancement. Mildly motion degraded exam. Minimal lumbar levoscoliosis. Mild multilevel spondylotic spurring and facet a rthrosis. T12-L1: No central canal or neural foraminal stenosis. L1-L2: No central canal or neural foraminal stenosis. L2-L3: No central canal or neural foraminal stenosis. L3-L4: Mild intervertebral disc space narrowing with small circumferential annular disc bulge. No ce ntral canal or neural foraminal stenosis. L4-L5: Mild intervertebral disc space narrowing with small circumferential annular disc bulge. Ligam entum flavum thickening with moderate facet arthrosis. No central canal or neural foraminal stenosis. L5-S1: Mild intervertebral disc space narrowing with small posterior annular disc bulge and 6 mm sheryl tral disc protrusion. No central canal or neural foraminal stenosis. IMPRESSION: 1. Mild mid to lower lumbar discogenic degeneration. No significant central canal or foraminal narrow ing. 2. No abnormal enhancement. ACT 112: Negative or not required by law. The above report was generated using voice recognition software. It may contain grammatical, syntax o r spelling errors. Electronically signed by: Randall Gonzalez M.D. 03/08/2025 2:55 PM
[2025-03-08 18:09] LABS: Appearance Urine Clear (Clear); Glucose Urine UA Negative (Negative)
--- NOTE | 2025-03-08 19:11 | History & Physical Report ---
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 ED reveals CBC leukopenia 3.94;; chloride 108, AST 12.4; lipase 13; UA negative for infection; lumbar spine MRI mild mid to lower lumbar discogenic degeneration, no significant central canal or foraminal narrowing, no abnormal enhancement.; Provided with 500 mL NSS, Zofran 4 mg IV, morphine 4 yuliana IV x 3, and lorazepam 1 mg IV in ED. #Intractable back pain/weakness Back pain day BENEFITS ANALYST, associated bilateral leg weakness and now bladder incontinence. No history of such. No trauma. Does have history of Lyme disease, no recent tick bites that she is aware of, however she was not aware of a previous tick bite either and was diagnosed with Lyme. - CBC leukopenia 3.94; CMP grossly unremarkable, exception AST 12, globulin 2.4 - CBC am - UA negative for infection - Tick panel pending, WILSON pending - Lumbar spine MRI mild to lower lumbar discogenic degeneration - Thoracic spine MRI pending - Fall precautions - Heating pad if needed - Acetaminophen or Morphine prn pain, zofran prn N/V - ? LP or brain MRI deferred to neurology -- hold any chemical VTE prophylaxis pending LP - Neurology consulted - appreciate assistance #Psych- Buspirone, duloxetine, escitalopram, hydroxyzine, topiramate - continue #GERD- Pantoprazole - continue Dispo: Obs, med/sx VTE Prophylaxis: SCDs This document was dictated utilizing [employer]. Please excuse any grammatical errors that may be secondary to use of this software. 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 Patient reports the morning BENEFITS ANALYST she started to have sharp, stabbing, and aching low back pain. She initially woke up and felt that her back was stiff but then throughout the day became painful. She states that her hips and legs are having pain to, and they slowly have become more weak. She says that the bottom of her feet are numb. The day BENEFITS ANALYST, she was with her coworker going to a meeting in [place] and was in the car for 2 hours to and from. She states that throughout the ride she felt that her pain and stiffness was getting worse, so whenever she got out of the car she did take a Tylenol and try to walk around. She states that this did not help any of her symptoms. She rode in the car 2 hours back when she got out of the car that tried to stretch but states that this still does not help her pain. That night, she took a warm bath to try to alleviate some of the symptoms which did not help. She continues to take Tylenol and an old prescription of her muscle relaxer, but had no relief of symptoms. She states the morning of arrival, she had an episode of urinary incontinence. No bowel incontinence. She states her pain is currently a 6 out of 10 on the pain scale, still mainly in her lower back also with complete loss of sensation of her BLE. Has had no infectious symptoms, no recent injury or trauma to the back, no tick bites. Is having some nausea secondary to pain. She has never had this happen before. Denies chest pain, SOB, palpitations, abdominal pain, V/D/C, LUTS, URI symptoms, syncope, or LOC. ED reveals CBC leukopenia 3.94;; chloride 108, AST 12.4; lipase 13; UA negative for infection; lumbar spine MRI mild mid to lower lumbar discogenic degeneration, no significant central canal or foraminal narrowing, no abnormal enhancement.; Provided with 500 mL NSS, Zofran 4 mg IV, morphine 4 yuliana IV x 3, and lorazepam 1 mg IV in ED. Please see Dr. Reyes's attestation for adjustments/additions to treatment plan. Allergies Allergy/AdvReac Type Severity Reaction Status Date / Time Fish Containing Products Allergy Intermediate Rash Verified 03/08/25 15:46 shellfish derived AdvReac Severe PASSED OUT Verified 03/08/25 15:46 Home Medications Medication Instructions Recorded Confirmed Type cyanocobalamin (vitamin B-12) 1,000 mcg PO QAM 05/24/18 03/08/25 History 1,000 mcg capsule cholecalciferol (vitamin D3) 50 50 mcg PO QAM 02/11/22 03/08/25 History mcg (2,000 unit) capsule (Vitamin D3) buspirone 15 mg tablet 15 mg PO BID 07/15/22 03/08/25 History escitalopram oxalate 20 mg tablet 20 mg PO QAM 90 days #90 tabs 03/28/24 03/08/25 Rx (Lexapro) erenumab-aooe 140 mg/mL 140 mg subcut MONTHLY 08/28/24 03/08/25 History subcutaneous auto-injector (Aimovig Autoinjector) ondansetron 8 mg disintegrating 8 mg PO Q8H PRN nausea and 09/04/24 03/08/25 Rx tablet vomiting #30 tabs pantoprazole 40 mg tablet,delayed 40 mg PO BID 10/06/24 03/08/25 History release hydroxyzine pamoate 25 mg capsule 50 mg PO HS 11/24/24 03/08/25 History metoclopramide HCl 10 mg tablet 10 mg PO QID PRN ABD DISCOMFORT 11/24/24 03/08/25 History (Reglan) duloxetine 20 mg capsule,delayed 20 mg PO QAM #30 caps 12/05/24 03/08/25 Rx release (Cymbalta) biotin 10 mg tablet 10 mg PO DAILY 03/08/25 03/08/25 History folic acid 400 mcg tablet 0.4 mg PO DAILY 03/08/25 03/08/25 History magnesium oxide 0 mg PO DAILY 03/08/25 03/08/25 History topiramate 100 mg tablet (Topamax) 100 mg PO HS 03/08/25 03/08/25 History Past Med/Surg History Problem List (Updated 03/08/25 @ 19:38 by Reji Fair PA-C) Bilateral leg weakness Intractable back pain Cervical radiculopathy Adnexal cyst Paresthesia of left upper extremity Intermittent palpitations Allergic rhinitis due to pollen Snoring Hypersomnia CASSI III (cervical intraepithelial neoplasia III) History of claustrophobia Plantar fasciitis Mixed hyperlipidemia Binge eating disorder Metabolic syndrome Carpal tunnel syndrome, right Morbid obesity Strain of right biceps tendon Migraine without aura, not intractable, without status migrainosus Eustachian tube dysfunction Mitral valve prolapse syndrome (Acute) Vitamin B12 deficiency (Acute) Vitamin D deficiency (Acute) Degenerative disc disease Medical History Drainage from gastrostomy tube site Pain around PEG tube site Anxiety Depression Abdominal pain Bipolar I disorder, single manic episode GERD (gastroesophageal reflux disease) Hypertriglyceridemia Chiari malformation s/p decompression (~2014) No issues since per 05/12/[address] "There has been prior posterior suboccipital decompression. There is persistent caudal positioning of the cerebellar tonsils consistent with Chiari I malformation. 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 no crosscutter no issues with MV on 12/2022 ECHO Hx of Lyme disease 2015 - antibiotic completed Hx of ectopic Anxiety and depression Morbid obesity Pre-diabetes s/p gastric sleeve procedure - no longer an issue GERD (gastroesophageal reflux disease) controlled, stable per pt Post traumatic stress disorder Deep vein thrombosis Around 2006 (LUE- unknown etiology) Headache h/o post spinal tap PAUL and generalized weakness in 2018 per 09/2020 [facility] neuro note Surgical History Hx laparoscopic cholecystectomy Status post sleeve gastrectomy 12/22/23 @ [facility] Myriam Villanueva Hx of hysterectomy History of carpal tunnel release Right History of MRI Right elbow MRI (02/13/22): MAC at [facility]. No issues noted per post-op anesthesia progress note. History of surgery Chiari Malformation repair (~2014; [facility]) Hx of foot surgery R/L repair of plantar fasciitis and removal of heel spurs History of laparoscopy History of tooth extraction Family History Grandmother (Paternal) Family history of diabetes mellitus Family/Other Chiari malformation Venous thrombosis Grandmother Stroke Mother Hypothyroidism Father Mitral valve prolapse Grandmother (Maternal) Breast cancer Denies family history of Ovarian cancer Colorectal cancer Social History Smoking Status: Never smoker Second Hand Exposure: No; Do You Dip or Chew Tobacco: No; Tobacco Cessation Education Requested by Patient: No Hx Alcohol Use: No Hx Substance Use: No Preferred Language: Irish Communication Ability: Effective Fireworks Assembler Required: No Beliefs That Will Affect Care: None marital status: Current Living Situation: Spouse Current Living Situation Comment: lives with the and children current occupational status: employed 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 Other Information That Helps Us Care for You: No Feels Safe at Home: Yes Safety Concerns: Feels Safe At This Time Diet: low carbohydrate and other Diet Comment: high protein Physical Activity Frequency: 5-6 Times per Week Assistive Devices: None Review of Systems Review of Systems: All systems reviewed & are unremarkable except as noted in Subjective Physical Exam Physical Exam: General: No acute distress Skin: Warm and dry; patient with erythema, as patient's baseline per her report- almost malar appearance Head: Normocephalic, atraumatic Eyes: PERRL, conjunctivae clear, sclera non-icteric ENT: External ear and ear canal without swelling; nose atraumatic; good dentition, tongue normal appearance, pharynx normal Neck: Supple, no LAD Cardio: RRR, no M/G/R, S1 and S2 normal Resp: No respiratory distress, Lungs CTA in all lobes bilaterally, no wheezes, rales, or rhonchi Abdomen: Soft, symmetric, nontender; No masses or hepatosplenomegaly; Bowel sounds normoactive MSK: No deformities; pulses palpable and equal; no edema; unable to adjust much to feel her back, from what I could feel there is no step-off deformity midline tenderness. Neuro: Awake, alert; Sensation intact bilaterally BUE; BLE "cannot feel at all", poor effort when testing strength, leg raise against resistance without opposite leg involvement; CN grossly intact otherwise; reflexes present Psych: Tearful, good judgement and insight. Results & Data Results & Data Vital Signs (Past 12 Hours) Vital Signs Temp Pulse Pulse Resp BP BP Pulse Ox 03/08/25 18:50 77 17 107/71 99 03/08/25 17:53 98 03/08/25 17:40 78 03/08/25 13:03 83 03/08/25 12:36 36.6 C 93 H 16 102/67 99 O2 Del Method 03/08/25 18:50 Room Air 03/08/25 17:53 Room Air 03/08/25 17:40 03/08/25 13:03 03/08/25 12:36 Room Air Laboratory Results 03/08/25 03/08/25 17:51 13:02 WBC 3.94 L RBC 4.38 Hgb 13.8 Hct 39.9 MCV 91.1 MCH 31.5 MCHC 34.6 RDW Std Deviation 40.2 RDW Coeff of Zuleyma 12.1 Plt Count 199 MPV 10.9 Immature Gran % (Auto) 0.3 Neut % (Auto) 57.1 Lymph % (Auto) 35.0 Tripp % (Auto) 4.8 Eos % (Auto) 2.0 Baso % (Auto) 0.8 Neut # (Auto) 2.25 Lymph # (Auto) 1.38 Tripp # (Auto) 0.19 Eos # (Auto) 0.08 Baso # (Auto) 0.03 Immature Gran # (Auto) 0.01 Sodium 139 Potassium 3.9 Chloride 108 H Carbon Dioxide 25 Anion Gap 6 BUN 10 Creatinine 0.85 Est Cr Clr Drug Dosing Not Reportable eGFR 87.12 BUN/Creatinine Ratio 11.8 Glucose 84 Calcium 9.1 Total Bilirubin 0.5 AST 12 L ALT 12 Alkaline Phosphatase 60 Total Protein 6.7 Albumin 4.3 Globulin 2.4 L Albumin/Globulin Ratio 1.8 Lipase 13 Urine Color Yellow Urine Appearance Clear Urine pH 6.5 Ur Specific [place] 1.010 Urine Protein Negative Urine Glucose (UA) Negative Urine Ketones Negative Urine Blood Negative Urine Nitrite Negative Urine Bilirubin Negative Urine Urobilinogen Negative Ur Leukocyte Esterase Negative Urine Comment Diagnostic Findings Lumbar Spine MRI 03/08/25 12:53 MR lumbar spine wo/w con CLINICAL HISTORY: 44 years-old Female with Lower back pain, urinary incontinance. Acute low back pain with bilateral lower extremity weakness COMPARISON: CT abdomen and pelvis 12/01/2024 TECHNIQUE: Multiplanar, multi sequence MRI of the lumbar spine was performed with and without intravenous contrast. FINDINGS: The lumbar alignment is normal. The vertebral body heights are normal. There is no T1 fracture line or marrow replacement process. The conus terminates at L1. The visualized spinal cord and cauda equina are normal. There is no paraspinal edema, mass, or prevertebral fluid collection. The intra-abdominal structures are grossly unremarkable. 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 No abnormal enhancement. Mildly motion degraded exam. Minimal lumbar levoscoliosis. Mild multilevel spondylotic spurring and facet arthrosis. T12-L1: No central canal or neural foraminal stenosis. L1-L2: No central canal or neural foraminal stenosis. L2-L3: No central canal or neural foraminal stenosis. L3-L4: Mild intervertebral disc space narrowing with small circumferential annular disc bulge. No central canal or neural foraminal stenosis. L4-L5: Mild intervertebral disc space narrowing with small circumferential annular disc bulge. Ligamentum flavum thickening with moderate facet arthrosis. No central canal or neural foraminal stenosis. L5-S1: Mild intervertebral disc space narrowing with small posterior annular disc bulge and 6 mm central disc protrusion. No central canal or neural foraminal stenosis. IMPRESSION: 1. Mild mid to lower lumbar discogenic degeneration. No significant central canal or foraminal narrowing. 2. No abnormal enhancement. ACT 112: Negative or not required by law. The above report was generated using voice recognition software. It may contain grammatical, syntax or spelling errors. Electronically signed by: Randall Gonzalez M.D. 03/08/2025 2:55 PM Medications Administered 500 mL NSS Zofran 4 mg IV Morphine sulfate 4 mg IV x 3 Lorazepam 1 mg IV Code Status & VTE Plan Code Status Full Supervising Physician Co-Signing Physician Notes Patient seen and examined, chart reviewed, case discussed with TIARA Fair and I agree with the assessment and plan as documented above. In brief, patient is a 44-year-old female with history of gastric sleeve with G-tube placement, bip olar 1, prior DVT presenting with 2 days of progressive back pain, bilateral lower extremity weakness. Patient did travel in a car as a passenger for 2 hours prior to her symptom onset. Denies trauma, falls, fever. She reports low back pain as well as stiffness in her hips. She has developed numbness in her bilateral feet which has progressed now to her knees over the last 36 hours. This a.m. she also developed urinary incontinence. No recent illness or infection, no recent vaccinations, no tick bites, no personal or family history of autoimmune disorders On physical exam patient is resting comfortably, no acute distress Skinno rashes, does have redness to her face which she states is baseline HEENTneck supple, moist mucous membranes Heart+ S1, S2, regular, no murmur/rub/gallop LungsCTA anteriorly, no rales/rhonchi/wheezes Abdomenpositive bowel sounds, soft, nontender, nondistended Extremitiesdiffuse weakness of bilateral lower extremities, strength 2-3/4, diminished reflexes in right lower extremity more than left lower extremity, sensation to light touch is intact, rectal tone not assessed, gait not assessed Labs and images reviewed. Significant for leukopenia with WBC = 3.94 (seems to be near patient's baseline), normal differential Lumbar spine MRI with mild to moderate lower lumbar discogenic degeneration with no significant central canal or foraminal narrowing and no abnormal enhancement Assessment/[id number] female with 2 days of progressive bilateral lower extremity weakness, now with bladder incontinence Differential to include bilateral radiculopathy, possible myelitis to be considered as well Admit to medical Obtain MRI of the thoracic spine Check WILSON Follow-up on tick panel Pain control and antiemetics as needed Neurology consult appreciated. Will defer MRI of the brain and LP orders to their expertise Remainder as above PG Care Time/CCT Total # of Minutes Spent Total Time Spent with Patient: Total time spent is greater than 50% in coordination of care (as documented) at patient's floor/unit and/or counseling patient: Coding Level of Care Code 97620 INT INP/OBS CARE 3/75MIN Diagnoses Intractable back pain M54.9 Bilateral leg weakness R29.898
[2025-03-08] MEDS ORDERED: NALOXONE HCL 0.4 MG/1 ML VIAL/CARP IV PRN (21:23)
[2025-03-08] MEDS ORDERED: MELATONIN 3 MG TAB PO PRN (21:23)
[2025-03-08] MEDS ORDERED: ACETAMINOPHEN 325 MG TAB PO PRN (21:23)
[2025-03-08] MEDS ORDERED: POLYETHYLENE (MIRALAX) 17 GM PACK PO PRN (21:23)
[2025-03-08] MEDS ORDERED: MAGNESIUM HYDROXIDE SUSP 30 ML UDC PO PRN (21:23)
[2025-03-08] MEDS ORDERED: ONDANSETRON 8MG OD TAB PO PRN (21:23)
[2025-03-08] MEDS ORDERED: METOCLOPRAMIDE HCL 10 MG TABLET PO PRN (21:23)
[2025-03-08] MEDS: ONDANSETRON INJ 2 MG/ML 2 ML VIAL IV PRN (22:34)
[2025-03-08] MEDS: busPIRone 15 MG TAB PO SCH (22:35)
[2025-03-08] MEDS: TOPIRAMATE 100 MG TAB PO SCH (22:36)
[2025-03-09] MEDS: MoRPHine SULFATE 4 MG/ML 1 ML CARP\\VIAL IV PRN (05:05)
[2025-03-09] MEDS: GADOBUTROL 65ML VIAL IV ONE (06:47)
--- NOTE | 2025-03-09 07:30 | Magnetic Resonance Report ---
EXAM: MR thoracic spine wo/w con CLINICAL HISTORY: ? myelitis TECHNIQUE: Multiplanar, multi-sequential MRI of the thoracic spine was performed before and after the administration of intravenous contrast . Imaging includes T1-weighted, T2-weighted, and STIR sequences in sagittal and axial planes. Post-contrast sequences were obtained to assess for any abnormal enhancement. COMPARISON: None. FINDINGS: Intervertebral Discs: Normal height and signal intensity of the intervertebral discs throughout the thoracic spine. No evidence of disc herniation, bulging, or significant degeneration. No disc desiccation. Spinal Canal and Neural Foramina: Spinal canal is of normal caliber at all levels. Neural foramina are patent bilaterally at all levels, without nerve root compression. Facet Joints: Facet joints appear normal bilaterally. No evidence of facet arthropathy or significant degenerative changes. Vertebrae: Normal alignment of thoracic vertebrae. No fractures, lytic or sclerotic lesions. Bone marrow signal intensity is within normal limits. [id number] Analysis: C7-T1: No significant disc pathology. Normal ligamentum flava morphology, no arthropathy of the facet joints, and no significant spinal canal stenosis. T1-T2: No significant disc pathology. Normal ligamentum flava morphology, no arthropathy of the facet joints, and no significant spinal canal stenosis. T2-T3: No significant disc pathology. Normal ligamentum flava morphology, no arthropathy of the facet joints, and no significant spinal canal stenosis. T3-T4: No significant disc pathology. Normal ligamentum flava morphology, no arthropathy of the facet joints, and no significant spinal canal stenosis. T4-T5: No significant disc pathology. Normal ligamentum flava morphology, no arthropathy of the facet joints, and no significant spinal canal stenosis. T5-T6: No significant disc pathology. Normal ligamentum flava morphology, no arthropathy of the facet joints, and no significant spinal canal stenosis. T6-T7: No significant disc pathology. Normal ligamentum flava morphology, no arthropathy of the facet joints, and no significant spinal canal stenosis. T7-T8: No significant disc pathology. Normal ligamentum flava morphology, no arthropathy of the facet joints, and no significant spinal canal stenosis. T8-T9: No significant disc pathology. Normal ligamentum flava morphology, no arthropathy of the facet joints, and no significant spinal canal stenosis. T9-T10: No significant disc pathology. Normal ligamentum flava morphology, no arthropathy of the facet joints, and no significant spinal canal stenosis. T10-T11: No significant disc pathology. Normal ligamentum flava morphology, no arthropathy of the facet joints, and no significant spinal canal stenosis. T11-T12: No significant disc pathology. Normal ligamentum flava morphology, no arthropathy of the facet joints, and no significant spinal canal stenosis. Spinal Cord: Normal signal intensity and morphology of the spinal cord throughout. No intrinsic cord lesions, syrinx, or abnormal signal changes. There is no significant disc pathology. No exiting nerve root or spinal cord compression. Normal morphology of the ligamentum flava. No arthropathy of the uncovertebral and zygapophyseal joints. No significant spinal canal and neural foraminal stenosis. Post-Contrast Findings: No abnormal enhancement within the spinal cord, vertebrae, or paraspinal soft tissues. No evidence of masses, infections, or vascular malformations. Soft Tissues: Paraspinal soft tissues are unremarkable. No abnormal fluid collections, masses, or signs of inflammation. Thoracic Kyphosis: Normal thoracic kyphosis with no abnormal curvature or deformities. IMPRESSION: Normal MRI of the thoracic spine with and without contrast. No evidence of disc pathology, spinal cord lesions, or abnormal enhancement. Electronically signed by Franck Hawkins 03-09-2025 07:30 AM
[2025-03-09 08:27] LABS: Hematocrit (blood only) 34.9 % (37.0-47.0); Hemoglobin 11.6 g/dl (12.0-16.0); Mean Corpuscular Hemoglobin 31.0 pg (25.0-34.0); Mean Corpuscular Volume 93.3 fL (80.0-100.0); Platelet Count 156 K/uL (130-400); RDW Standard Deviation 41.4 fL (36.4-46.3); Red Blood Count 3.74 M/uL (4.20-5.40); White Blood Count 3.72 K/ul (4.8-10.8)
[2025-03-09] MEDS: ESCITALOPRAM OXALATE 20 MG TAB PO SCH (09:21)
[2025-03-09] MEDS: FOLIC ACID 400 MCG TAB PO SCH (09:21)
[2025-03-09] MEDS: MAGNESIUM OXIDE 400 MG TAB PO SCH (09:21)
--- NOTE | 2025-03-09 10:41 | Hospitalist Progress Note ---
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 ED reveals CBC leukopenia 3.94; chloride 108, AST 12.4; lipase 13; UA negative for infection; lumbar spine MRI mild mid to lower lumbar discogenic degeneration, no significant central canal or foraminal narrowing, no abnormal enhancement.; Provided with 500 mL NSS, Zofran 4 mg IV, morphine 4 yuliana IV x 3, and lorazepam 1 mg IV in ED. 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 No history of such. No trauma. Does have history of Lyme disease, no recent tick bites that she is aware of, however she was not aware of a previous tick bite either and was diagnosed with Lyme. - CBC leukopenia 3.94; CMP grossly unremarkable. Repeat WBC 3.72 - UA negative for infection - Tick panel negative, WILSON pending - Lumbar spine MRI mild to lower lumbar discogenic degeneration - Thoracic spine MRI negative - Fall precautions - Heating pad if needed - Acetaminophen or Morphine prn pain, zofran prn N/V - ? LP or brain MRI deferred to neurology -- hold any chemical VTE prophylaxis pending LP - Neurology consulted - appreciate assistance, await further recs #Psych- Buspirone, duloxetine, escitalopram, hydroxyzine, topiramate - continue #GERD- Pantoprazole - continue Dispo: Obs, med/sx VTE Prophylaxis: SCDs Admission and Anticipated Discharge Date Admission Date: March 08, 2025 Pablo Griffith was seen on daily rounds this morning. She was hospitalized with intractable BP and lower extremity weakness. She continues to endorse severe low back pain. She notes that the pain is excruciating regardless if she is laying still or moving. She notes mild improvement with Morphine. She currently has a short due to c/o urinary incontinence. She c/o bilateral leg numbness and significant weakness. Denies recent viral illnesses, tick bites, or vaccinations. Review of Systems 2 Review of Systems: All systems reviewed and are unremarkable except as noted in HPI and below. Denies fever, chills, fatigue, headache, nasal congestion, sore throat, cough, chest pain, shortness of breath, palpitations, orthopnea, PND, abdominal pain, n/v/d, constipation, dysuria, hematuria, frequency, joint pain or swelling, easy bruising or bleeding, skin lesions or rashes. Physical Exam 2 Physical Exam: GENERAL: 44 yo well-nourished middle aged WF. No distress. LUNGS: Clear to auscultation bilaterally. No w/r/r. CARDIOVASCULAR: Regular rate and rhythm. ABDOMEN: Soft, non-tender and non-distended. BS normoactive x 4 quad. EXTREMITIES: No edema. Non-tender. Peripheral pulses +2/4. NEUROLOGIC: Diminished sensation changes from distal LE extending proximally to ~T11/10 dermatome. Strength +1/5 b/l LE. PSYCHIATRIC: Cooperative. Flat affect. SKIN: Warm, dry, intact. No rashes or lesions. Results & Data Results & Data Vital Signs (Past 12 Hours) Vital Signs Temp Pulse Pulse Resp BP Pulse Ox O2 Del Method 03/09/25 07:39 73 100/66 03/09/25 07:21 36.6 C 80 16 93/64 L 97 Room Air Laboratory Results 03/09/25 07:43 03/08/25 13:02 PG Care Time/CCT Total # of Minutes Spent Total Time Spent with Patient: Total time spent is greater than 50% in coordination of care (as documented) at patient's floor/unit and/or counseling patient: 36 minutes Coding Level of Care Code 93195 SUB INP/OBS CARE 2/35MIN Diagnoses Intractable back pain M54.9 Bilateral leg weakness R29.898
[2025-03-09] MEDS: SODIUM CHLORIDE 0.9% 1,000 ML IV SCH (14:35)
--- NOTE | 2025-03-09 18:31 | Neurology Consultation ---
Date of Consultation March 09, 2025 Assessment & Plan (1) Bilateral leg weakness: Plan 44-year-old female with acute onset weakness of both lower extremities, associated sensory loss from the umbilicus down, reduced deep tendon reflexes, no upper motor neuron findings on examination, occurring in the context of severe low back pain, unremarkable MRI of the lumbar and thoracic spine. This patient's clinical presentation could be consistent with transverse myelitis although her thoracic spine MRI is normal. Further, she does not have any upper motor neuron findings on examination. Guillain-Hitchcock syndrome could also be considered. However, the acuity of her presentation would be atypical for GBS. An acute myopathy is unlikely. She has never had a similar episode of weakness previously. Periodic paralysis unlikely as well. I would recommend obtaining an MRI of the brain and cervical spine, both with and without contrast. Depending on results, would consider a lumbar puncture. Would also check a CK, aldolase, ESR, CRP, repeat vitamin B12 level, copper level, WILSON 12 screen, ANCA antibodies, rheumatoid factor, angiotensin-converting enzyme, urine heavy metal screen, RPR, HIV, serum protein electrophoresis and immunofixation, serum free kappa, serum immunoglobulins If the above brain and cervical spine MRIs did not reveal any significant pathology, would proceed to lumbar puncture as above. If the lumbar puncture reveals albuminocytologic dissociation, would recommend treatment with IVIG, 0.4 g/kg over 5 days. History of Present Illness Reason for Consultation: weakness Requesting Physician: Lana Attending Physician: Sharee Davila MD History of Present Illness The patient is a 44-year-old female with a history of morbid obesity, post gastric sleeve, greater than 100 pound weight loss, required feeding tube, removed this past November. She presented to the emergency department yesterday with severe low back pain, acute onset, followed by sensory loss from the umbilicus down, and associated near flaccid weakness of both lower limbs, and incontinence. She denies any recent illness, vaccination, or injury. An MRI of the lumbar spine completed yesterday revealed minimal degenerative disc disease without central canal or neuroforaminal stenosis at any level. No abnormal enhancement. A thoracic spine MRI completed today was normal, normal spinal cord, no abnormal enhancement. I independently reviewed these images. She had normal vitamin B12, folate, thiamine, and vitamin D levels this past December. An electrocardiogram reveals a normal sinus rhythm. She denies headache, neck pain, weakness or numbness of either upper limb. No disturbance of vision or change in speech or difficulty swallowing. No vertigo or hearing loss. Allergies Allergy/AdvReac Type Severity Reaction Status Date / Time Fish Containing Products Allergy Intermediate Rash Verified 03/08/25 15:46 shellfish derived AdvReac Severe PASSED OUT Verified 03/08/25 15:46 Home Medications Medication Instructions Recorded Confirmed Type cyanocobalamin (vitamin B-12) 1,000 mcg PO QAM 05/24/18 03/08/25 History 1,000 mcg capsule cholecalciferol (vitamin D3) 50 50 mcg PO QAM 02/11/22 03/08/25 History mcg (2,000 unit) capsule (Vitamin D3) buspirone 15 mg tablet 15 mg PO BID 07/15/22 03/08/25 History escitalopram oxalate 20 mg tablet 20 mg PO QAM 90 days #90 tabs 03/28/24 03/08/25 Rx (Lexapro) erenumab-aooe 140 mg/mL 140 mg subcut MONTHLY 08/28/24 03/08/25 History subcutaneous auto-injector (Aimovig Autoinjector) ondansetron 8 mg disintegrating 8 mg PO Q8H PRN nausea and 09/04/24 03/08/25 Rx tablet vomiting #30 tabs pantoprazole 40 mg tablet,delayed 40 mg PO BID 10/06/24 03/08/25 History release hydroxyzine pamoate 25 mg capsule 50 mg PO HS 11/24/24 03/08/25 History metoclopramide HCl 10 mg tablet 10 mg PO QID PRN ABD DISCOMFORT 11/24/2402/12 History (Reglan) duloxetine 20 mg capsule,delayed 20 mg PO QAM #30 caps 12/05/24 03/08/25 Rx release (Cymbalta) biotin 10 mg tablet 10 mg PO DAILY 03/08/25 03/08/25 History folic acid 400 mcg tablet 0.4 mg PO DAILY 03/08/25 03/08/25 History magnesium oxide 0 mg PO DAILY 03/08/25 03/08/25 History topiramate 100 mg tablet (Topamax) 100 mg PO HS 03/08/25 03/08/25 History Patient History Medical History Drainage from gastrostomy tube site Pain around PEG tube site Anxiety Depression Abdominal pain Bipolar I disorder, single manic episode GERD (gastroesophageal reflux disease) Hypertriglyceridemia Chiari malformation s/p decompression (~2014) No issues since per 05/12/[address] "There has been prior posterior suboccipital decompression. There is persistent caudal positioning of the cerebellar tonsils consistent with Chiari I malformation. 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 no roustabout head no issues with MV on 12/2022 ECHO Hx of Lyme disease 2014 - antibiotic completed Hx of ectopic Anxiety and depression Morbid obesity Pre-diabetes s/p gastric sleeve procedure - no longer an issue GERD (gastroesophageal reflux disease) controlled, stable per pt Post traumatic stress disorder Deep vein thrombosis Around 2006 (LUE- unknown etiology) Headache h/o post spinal tap PAUL and generalized weakness in 2018 per 09/2020 [place] neuro note Surgical History Hx laparoscopic cholecystectomy Status post sleeve gastrectomy 12/22/23 @ [facility] Myriam Villanueva Hx of hysterectomy History of carpal tunnel release Right History of MRI Right elbow MRI (02/13/22): MAC at [facility]. No issues noted per post-op anesthesia progress note. History of surgery Chiari Malformation repair (~2014; [facility]) Hx of foot surgery R/L repair of plantar fasciitis and removal of heel spurs History of laparoscopy History of tooth extraction Family History Grandmother (Paternal) Family history of diabetes mellitus Family/Other Chiari malformation Venous thrombosis Grandmother Stroke Mother Hypothyroidism Father Mitral valve prolapse Grandmother (Maternal) Breast cancer Denies family history of Ovarian cancer Colorectal cancer Social History Smoking Status: Never smoker Second Hand Exposure: No; Do You Dip or Chew Tobacco: No; Tobacco Cessation Education Requested by Patient: No Hx Alcohol Use: No Hx Substance Use: No Preferred Language: Bangladeshi Communication Ability: Effective 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: No Beliefs That Will Affect Care: None marital status: Current Living Situation: Spouse Current Living Situation Comment: lives with the and children current occupational status: employed 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 Other Information That Helps Us Care for You: No Feels Safe at Home: Yes Safety Concerns: Feels Safe At This Time Diet: low carbohydrate and other Diet Comment: high protein Physical Activity Frequency: 5-6 Times per Week Assistive Devices: None Review of Systems Constitutional: no fever and no chills Eyes: no blind spots and no diplopia Ear, Nose, Mouth, Throat: no hearing loss Respiratory: no cough and no dyspnea Cardiovascular: no chest pain and no palpitations Gastrointestinal: no nausea and no vomiting Genitourinary: + urinary incontinence Musculoskeletal: as per Subjective / HPI and + back pain; no neck pain and no myalgia Integumentary: no rash and no lesions Neurologic: as per Subjective / HPI, + localized weakness and + loss of sensation; no tremor(s), no abnormal movements, no headache(s), no abnormal speech, no confusion and no memory loss Psychiatric: no depression and no anxiety Hematologic / Lymphatic: no easy bleeding and no easy bruising Exam (Neuro) Constitutional: well developed and well nourished; no acute distress Eyes: normal visual layton by confrontation, PERRL and EOM intact bilaterally; no nystagmus Neurologic: Oriented to:: Person, Place and Time Memory: Short Term Intact and Remote Intact Attention: Span Intact and Concentration Intact Speech Fluency: negative Dysarthria or Dysfluency Speech Aphasia: negative Aphasia Fund of Knowledge: Current Events, Past History and Vocabulary Cranial Nerves: Normal II, III, IV, , V, VII, VIII, IX, X, XI and XII Motor Strength: Normal Upper Extremities; negative Normal Lower Extremities Motor Tone: Normal Lower Extremities and Normal Upper Extremities Muscle Bulk/Involuntary Movements: No Involuntary Movements; negative Muscle Atrophy Sensation: negative Light Touch Intact, Pain/Temperature Intact, Vibration Intact or Proprioception Intact Coordination: negative Finger-Nose Abnormal Deep Tendon Reflexes: Rt Triceps: 2+, Lt Triceps: 2+, Rt Biceps: 2+, Lt Biceps: 2+, Rt Brachioradialis: 2+, Lt Brachioradialis: 2+, Rt Patellar: 1+, Lt Patellar: 1+, Rt Ankle: 1+ and Lt Ankle: 1+ Special Tests: negative Babinski Present Details: Bilateral foot drop, 0 out of 5 strength for dorsiflexion, plantarflexion and eversion at the ankles, 1 out of 5 strength for leg extension and hip flexion bilaterally. Results & Data Vital Signs (Past 12 Hours) Vital Signs Temp Pulse Pulse Resp BP Pulse Ox O2 Del Method 03/09/25 14:23 36.8 C 84 17 101/67 97 Room Air 03/09/25 07:39 73 100/66 03/09/25 07:21 36.6 C 80 16 93/64 L 97 Room Air Laboratory Results WBC 3.72, hemoglobin 11.6, hematocrit 34.9, platelet count 156, sodium 139, potassium 3.9, BUN 10, creatinine 0.85, glucose 84, calcium 9.1, AST 12, ALT 12, vitamin B1 110, vitamin B12 583, vitamin D68.9, folate 15.56, Lyme screen negative Coding Level of Care Code 86418 INT INP/OBS CARE 3/75MIN Diagnoses Bilateral leg weakness R29.898 Time Spent (min) 80 Comment Total time includes patient contact, chart review, counseling, note preparation
[2025-03-09] MEDS: ONDANSETRON 4 MG OD TAB PO PRN (18:49)
[2025-03-09] MEDS: MoRPHine SULFATE 2 MG/ML CARP IV PRN (19:46)
[2025-03-10 07:00] LABS: Hematocrit (blood only) 34.0 % (37.0-47.0); Hemoglobin 11.3 g/dl (12.0-16.0); Immature Granulocytes # (auto) 0.02 K/uL (0.01-0.20); Immature Granulocytes % (auto) 0.4 %; Mean Corpuscular Hemoglobin 30.8 pg (25.0-34.0); Mean Corpuscular Volume 92.6 fL (80.0-100.0); Platelet Count 154 K/uL (130-400); RDW Standard Deviation 40.1 fL (36.4-46.3); Red Blood Count 3.67 M/uL (4.20-5.40); White Blood Count 4.95 K/ul (4.8-10.8)
[2025-03-10 07:31] LABS: Anion Gap 4.0 (3-11); Blood Urea Nitrogen 13.0 mg/dl (6-23); Calcium 8.4 mg/dl (8.6-10.3); Carbon Dioxide 26.0 mmol/L (21-32); Chloride 109.0 mmol/L (98-107); Creatinine Clr Calc Pharmacy 55.9 ml/min; Glucose 77.0 mg/dl (70-99(Fasting)); Magnesium 1.9 mg/dl (1.7-2.4); Potassium 3.9 mmol/L (3.5-5.1); Sodium 139.0 mmol/L (136-145)
--- NOTE | 2025-03-10 09:23 | Hospitalist Progress Note ---
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 ED reveals CBC leukopenia 3.94; chloride 108, AST 12.4; lipase 13; UA negative for infection; lumbar spine MRI mild mid to lower lumbar discogenic degeneration, no significant central canal or foraminal narrowing, no abnormal enhancement.; Provided with 500 mL NSS, Zofran 4 mg IV, morphine 4 yuliana IV x 3, and lorazepam 1 mg IV in ED. 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 No history of such. No trauma. Does have history of Lyme disease, no recent tick bites that she is aware of, however she was not aware of a previous tick bite either and was diagnosed with Lyme. - CBC continues to show stable leukopenia - UA negative for infection - Tick panel negative, WILSON pending - Lumbar spine MRI mild to lower lumbar discogenic degeneration - Thoracic spine MRI negative - Fall precautions - Heating pad if needed - Acetaminophen or Morphine prn pain, zofran prn N/V - MRI brain and cervical spine today, LP likely tomorrow - Neurology consulted - appreciate assistance, discussed case with Dr. Sparks - History does not correlate with GBS. ?Transverse myelitis, conversion d/o, malingering? #Psych- Buspirone, duloxetine, escitalopram, hydroxyzine, topiramate - continue #GERD- Pantoprazole - continue Dispo: Obs, med/sx VTE Prophylaxis: SCDs. Lovenox today. None tomorrow as she will undergo LP. Updated Dr. Davila. Admission and Anticipated Discharge Date Admission Date: March 08, 2025 Pablo Griffith was seen on daily rounds this morning. She was hospitalized with intractable BP and lower extremity weakness. She continues to endorse severe LBP and is asking for a dose of pain medication. She notes no change in her symptoms from yesterday, no better and no worse. She was seen by neurology and MRI of brain/neck have been ordered but cannot be done until later this afternoon according to MRI department. Review of Systems 2 Review of Systems: All systems reviewed and are unremarkable except as noted in HPI and below. Denies fever, chills, fatigue, headache, nasal congestion, sore throat, cough, chest pain, shortness of breath, palpitations, orthopnea, PND, abdominal pain, n/v/d, constipation, dysuria, hematuria, frequency, joint pain or swelling, easy bruising or bleeding, skin lesions or rashes. Physical Exam 2 Physical Exam: GENERAL: 44 yo well-nourished middle aged WF. No distress. LUNGS: Clear to auscultation bilaterally. No w/r/r. CARDIOVASCULAR: Regular rate and rhythm. ABDOMEN: Soft, non-tender and non-distended. BS normoactive x 4 quad. : Gallegos in place EXTREMITIES: No edema. Peripheral pulses +2/4. NEUROLOGIC: Diminished sensation changes from distal LE extending proximally to ~T11/10 dermatome. Strength +1/5 b/l LE. Decreased reflexes. PSYCHIATRIC: Cooperative. Flat affect. SKIN: Warm, dry, intact. No rashes or lesions. Results & Data Results & Data Vital Signs (Past 12 Hours) Vital Signs Temp Pulse Resp BP Pulse Ox O2 Del Method 03/10/25 07:33 36.4 C L 78 16 96/64 L 97 Room Air Laboratory Results 03/10/25 06:30 03/10/25 06:30 PG Care Time/CCT Total # of Minutes Spent Total Time Spent with Patient: Total time spent is greater than 50% in coordination of care (as documented) at patient's floor/unit and/or counseling patient: 38 minutes Coding Level of Care Code 76008 SUB INP/OBS CARE 2/35MIN Diagnoses Intractable back pain M54.9 Bilateral leg weakness R29.898
--- NOTE | 2025-03-10 10:25 | Neurology Progress Note ---
Date of Service March 10, 2025 Assessment & Plan (1) Bilateral leg weakness: (2) Bilateral leg numbness: Plan Acute bilateral leg weakness and numbness extending to just below the umbilicus in the context of acute low back pain. MRI of the lumbar and thoracic spine reveals no explanatory pathology. She does have diminished deep tendon reflexes for the lower limbs. However, there are some inconsistencies in her lower extremity examination. Although she reports complete anesthesia for the lower limbs, she complained of pain in her knees with attempts at flexion, as well is when I applied gentle pressure with palpation. Also, she exhibits trace strength for hamstring/knee and hip extension with direct testing, although was able to easily sit straight up in bed with her legs extended which would imply fairly intact strength in these muscle groups. MRI of the brain and cervical spine as ordered. Additional labs as suggested (Would also check a CK, aldolase, ESR, CRP, repeat vitamin B12 level, copper level, WILSON 12 screen, ANCA antibodies, rheumatoid factor, angiotensin-converting enzyme, urine heavy metal screen, RPR, HIV, serum protein electrophoresis and immunofixation, serum free kappa, serum immunoglobulins) orders placed If the above brain and cervical spine MRIs did not reveal any significant pathology, would proceed to lumbar puncture as above. If the lumbar puncture reveals albuminocytologic dissociation, would recommend treatment with IVIG, 0.4 g/kg over 5 days. Admission and Anticipated Discharge Date Admission Date: March 10, 2025 Subjective Follow-up regarding lower extremity weakness and numbness The patient does not report any significant change in her symptoms compared with yesterday. She continues to complain of low back and bilateral hip pain, reports no change in her bilateral lower extremity weakness and loss of sensation which extends up to just below the umbilicus. She complains of pain in her knees with attempts at bending them. She also complained that her knees hurt when I applied light pressure to them. However, she reported complete anesthesia to light touch and temperature for both lower limbs on examination. Results & Data Vital Signs (Past 12 Hours) Vital Signs Temp Pulse Resp BP Pulse Ox O2 Del Method 03/10/25 07:33 36.4 C L 78 16 96/64 L 97 Room Air Exam (Neuro) Constitutional: well developed and well nourished; no acute distress Eyes: normal visual layton by confrontation, PERRL and EOM intact bilaterally; no nystagmus Neurologic: Oriented to:: Person, Place and Time Memory: Short Term Intact and Remote Intact Attention: Span Intact and Concentration Intact Speech Fluency: negative Dysarthria or Dysfluency Speech Aphasia: negative Aphasia Fund of Knowledge: Current Events, Past History and Vocabulary Cranial Nerves: Normal II, III, IV, , V, VII, VIII, IX, X, XI and XII Motor Strength: Normal Upper Extremities; negative Normal Lower Extremities Motor Tone: Normal Lower Extremities and Normal Upper Extremities Muscle Bulk/Involuntary Movements: No Involuntary Movements Sensation: negative Light Touch Intact, Pain/Temperature Intact, Vibration Intact or Proprioception Intact Coordination: negative Finger-Nose Abnormal Deep Tendon Reflexes: Rt Triceps: 2+, Lt Triceps: 2+, Rt Biceps: 2+, Lt Biceps: 2+, Rt Brachioradialis: 2+, Lt Brachioradialis: 2+, Rt Patellar: 1+, Lt Patellar: 1+, Rt Ankle: 1+ and Lt Ankle: 1+ Special Tests: negative Babinski Present Details: She exhibits trace strength with foot dorsiflexion and plantarflexion, she is able to slightly flex the knees and hips to command. Unable to lift either leg off the mattress. Trace extension strength for the knees and hips with direct testing although again, able to sit up straight in bed with legs extended. Coding Level of Care Code 27906 SUB INP/OBS CARE 2/35MIN Diagnoses Bilateral leg weakness R29.898 Bilateral leg numbness R20.0 Time Spent (min) 35 Comment Total time includes patient contact, chart review, counseling, note preparation
[2025-03-10] MEDS: GADOBUTROL 65ML VIAL IV ONE (12:03)
--- NOTE | 2025-03-10 12:47 | Magnetic Resonance Report ---
MR brain wo/w con HISTORY: 44 years-old Female Leg weakness acute lower extremity weakness COMPARISON: MRI cervical spine of same day, a brain MRI 02/26/2023 TECHNIQUE: Multiplanar multisequence MRI of the brain was obtained with and without IV contrast FINDINGS: No restricted diffusion to suggest acute or subacute infarct. Midline structures appear unchanged. De generative changes of the cervical spine. Low-lying cerebellar tonsils with suboccipital craniectomy redemonstrated. Partially empty sella. No acute intracranial hemorrhage, midline shift, abnormal extr a-axial collection, hydrocephalus or intra-axial mass. No abnormal enhancement. Cerebral venous sinuses and major arterial flow voids appear patent. Skull, orbits and soft tissues a re unremarkable. Mastoid air cells and paranasal sinuses appear clear. Normal brain volume. There are a few scattered subcentimeter foci of T2/FLAIR prolongation noted within the subcortical white matte r of the left greater than right frontal lobes. IMPRESSION: 1. No acute intracranial abnormality. No acute or subacute infarct. 2. Low-lying cerebellar tonsils redemonstrated along with suboccipital craniectomy. 3. No abnormal enhancement. ACT 112: Negative or not required by law. The above report was generated using voice recognition software. It may contain grammatical, syntax o r spelling errors. Electronically signed by: Randall Gonzalez M.D. 03/10/2025 12:45 PM
[2025-03-10] MEDS: ENOXAPARIN INJ 40 MG/0.4 ML SYR SQ ONE (12:52)
--- NOTE | 2025-03-10 12:55 | Magnetic Resonance Report ---
MR cervical spine wo/w con HISTORY: 44 years-old Female Leg weakness chronic back pain COMPARISON: September 24, 2017 TECHNIQUE: Multiplanar multisequence MRI of the cervical spine was obtained with and without IV contr ast FINDINGS: Brain MRI dictated separately. Polypoid mucosal thickening of the maxillary sinuses. Study is mildly motion degraded. No acute fracture, subluxation or significant marrow edema. No epidural or paraspina l fluid collections. Prior suboccipital craniectomy with low lying cerebellar tonsils. Normal signal within the cervical and imaged upper thoracic spinal cord. No abnormal enhancement. C2-C3: No central canal or foraminal narrowing. C3-C4: Mild uncovertebral hypertrophy. No central canal or foraminal narrowing. C4-C5: Mild uncovertebral hypertrophy with tiny posterior annular disc bulge. No central canal or for aminal narrowing. C5-C6: Mild to moderate intervertebral disc space narrowing with circumferential disc osteophyte comp hanna which is similar to slightly progressed from prior. Mild central canal stenosis with AP dimension of the thecal sac measuring 7 mm. Mild bilateral foraminal narrowing has slightly worsened. C6-C7: Mild intervertebral disc space narrowing with uncovertebral hypertrophy and posterior annular disc bulge/disc osteophyte complex, also worsened from prior. Minimal central canal stenosis. The corky ral foramen are patent. C7-T1: No central canal or foraminal narrowing. IMPRESSION: 1. Motion degraded exam with mildly progressed discogenic degeneration at C5-C6 and C6-C7 as above. 2. No high-grade central canal or foraminal narrowing. 3. Normal signal of the cervical spinal cord. 4. No abnormal enhancement. ACT 112: Negative or not required by law. The above report was generated using voice recognition software. It may contain grammatical, syntax o r spelling errors. Electronically signed by: Randall Gonzalez M.D. 03/10/2025 12:53 PM
[2025-03-10 14:03] LABS: Creatine Kinase 17 U/L (26-192); Immunoglobulin A 135.4 mg/dl (70-400); Immunoglobulin G 741.1 mg/dl (635-1741); Immunoglobulin M 44.5 mg/dl (45-281)
[2025-03-10] MEDS: LOPERAMIDE HCL 2 MG CAP PO STA (21:01)
[2025-03-11 06:48] LABS: Hematocrit (blood only) 34.2 % (37.0-47.0); Hemoglobin 11.5 g/dl (12.0-16.0); Immature Granulocytes # (auto) 0.01 K/uL (0.01-0.20); Immature Granulocytes % (auto) 0.2 %; Mean Corpuscular Hemoglobin 31.1 pg (25.0-34.0); Mean Corpuscular Volume 92.4 fL (80.0-100.0); Platelet Count 158 K/uL (130-400); RDW Standard Deviation 40.3 fL (36.4-46.3); Red Blood Count 3.70 M/uL (4.20-5.40); White Blood Count 4.89 K/ul (4.8-10.8)
[2025-03-11 07:07] LABS: Anion Gap 4.0 (3-11); Blood Urea Nitrogen 11.0 mg/dl (6-23); Calcium 8.3 mg/dl (8.6-10.3); Carbon Dioxide 27.0 mmol/L (21-32); Chloride 110.0 mmol/L (98-107); Creatinine Clr Calc Pharmacy 68.9 ml/min; Glucose 84.0 mg/dl (70-99(Fasting)); Potassium 3.7 mmol/L (3.5-5.1); Sodium 141.0 mmol/L (136-145)
[2025-03-11 07:13] LABS: INR 1.0 (0.9-1.1); Prothrombin Time 11.0 Seconds (9.0-12.0)
--- NOTE | 2025-03-11 08:46 | Hospitalist Progress Note ---
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 ED reveals CBC leukopenia 3.94; chloride 108, AST 12.4; lipase 13; UA negative for infection; lumbar spine MRI mild mid to lower lumbar discogenic degeneration, no significant central canal or foraminal narrowing, no abnormal enhancement.; Provided with 500 mL NSS, Zofran 4 mg IV, morphine 4 yuliana IV x 3, and lorazepam 1 mg IV in ED. 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 No history of such. No trauma. Does have history of Lyme disease, no recent tick bites that she is aware of, however she was not aware of a previous tick bite either and was diagnosed with Lyme. - UA negative for infection - Tick panel negative, WILSON pending - Lumbar spine MRI mild to lower lumbar discogenic degeneration - Thoracic spine MRI negative - Brain, cervical spine MRI negative - evidence of Chiari malformation and decompression re-demonstrated - Fall precautions - Heating pad if needed - Acetaminophen or Morphine prn pain, zofran prn N/V - Neurology consulted - appreciate assistance, discussed case with Dr. Sparks Additional labs ordered - CK, aldolase, ESR, CRP, B12, copper, WILSON, ANCA, Rheumatoid factor, angiotensin converting enzyme, heavy metal screen, RPR, HIV, SPEP, immunofixation, serum free kappa, serum immunoglobulins. -ESR neg, CK low, CRP neg, HIV neg, B12 appropriate, RPR neg -Else above pending Defer LP in setting of Chiari malformation s/p decompression in setting of prior spinal headache MRI flexion/extension ordered to evaluate CSF flow Presentation not consistent with GBS High likelihood of functional neurological disorder - recommend PT/OT, expect improvement with conservative management Would recommend outapatient EMG/nerve conduction study in 3 weeks for further exclusion of Guillain-[place] - History does not correlate with GBS. ?Transverse myelitis, conversion d/o, malingering? #Psych- Buspirone, duloxetine, escitalopram, hydroxyzine, topiramate - continue #GERD- Pantoprazole - continue Dispo: Obs, med/sx VTE Prophylaxis: SCDs. Lovenox today. None tomorrow as she will undergo LP. Updated Dr. Davila. Admission and Anticipated Discharge Date Admission Date: March 10, 2025 Supervising Physician Co-Signing Physician Notes I personally examined the patient and verified lennon points of history and exam, discussed case, and agree with decision making and plan documented by Dr. Golden. Patient is a 44-year-old female with past medical history pertinent for bipolar 1 disorder, dyslipidemia, morbid obesity s/p sleeve gastrectomy, GERD, MVP, Chiari I malformation, and migraines on admission for acute onset bilateral lower extremity weakness and numbness. Neurology evaluated patient and started laboratory workup, brain and cervical MRIs unremarkable. LP initially recommended but deferred at present due to patient's history of Chiari I malformation and history of post LP headache and 2016. Cervical spine MRI with flexion-extension views ordered. Will proceed with PT/OT evaluation. Patient advised to obtain outpatient EMG in 3 weeks if symptoms due to functional neurological disorder. Subjective Patient seen and evaluated at bedside this morning. No acute events overnight. Resting in bed. States that she feels the same. Continues to have back pain, numbness/weakness in her b/l LE. No acute complaints. Review of Systems Review of Systems: reviewed, per HPI Physical Exam Physical Exam: Constitutional: well-appearing, no acute distress HEENT: NCAT, no conjunctival injection CV:extremities well-perfused, no LE edema Resp: no increased work of breathing GI: nondistended MSK: no gross deformities appreciated Skin: warm, dry, no rash appreciated Neuro: alert, oriented, without preserved strength in b/l LE Results & Data Results & Data Vital Signs (Past 12 Hours) Vital Signs Temp Pulse Resp BP Pulse Ox O2 Del Method 03/11/25 07:31 36.6 C 90 16 95/63 L 96 Room Air 03/10/25 20:50 Room Air Resident Activity Tracking Resident Involvement: Resident Care Provided Care Provided: Adult Hospital Medicine
--- NOTE | 2025-03-11 10:41 | Neurology Progress Note ---
Date of Service March 11, 2025 Assessment & Plan (1) Bilateral leg numbness: (2) Bilateral leg weakness: (3) Chiari I malformation: Plan 44-year-old female with a history of Chiari I malformation, post suboccipital craniectomy with Dr. Beaver. She has had several previous admissions to the [facility] for a variety of neurological symptoms. She had a lumbar puncture completed in 2015, CSF analysis was unremarkable, the procedure was complicated by a spinal headache. She presented to the emergency department 3 days ago with acute severe low back pain followed by sensory loss from the umbilicus down and profound weakness of both lower limbs and associated incontinence. Other than mild degenerative disc disease of the lumbar and cervical spine, and Chiari I malformation, post craniectomy, no significant abnormalities identified on MRI of the brain, cervical, thoracic, and lumbar spine. Her examination continues to have some inconsistencies that could indicate functional neurological disorder. The acuity of her presentation would not be consistent with Guillain-Hitchcock syndrome. Given her history of Chiari I malformation, I have ordered an up-to-date cervical spine MRI with flexion-extension views for CSF flow. Further, given that her clinical presentation and examination findings are not highly suggestive of Guillain-Hitchcock syndrome, I would recommend against pursuing a lumbar puncture as this procedure may further aggravate her Chiari I malformation and result in further neurological deterioration. If her symptoms are due to functional neurological disorder, I would expect improvement going forward with conservative/supportive care. Would recommend PT/OT. Outpatient EMG/nerve conduction study in 3 weeks can be useful to further exclude Guillain-Hitchcock syndrome in that timeframe, without need for lumbar puncture. Admission and Anticipated Discharge Date Admission Date: March 10, 2025 Subjective Follow-up regarding lower extremity weakness and sensory loss Upon further review of this patient's case, I had seen her during a hospitalization in 2017 for tremor, lower extremity numbness, weakness and gait dysfunction. She has a history of Chiari I malformation, post suboccipital craniectomy with Dr. Beaver. I had also seen her during several previous admissions to the [facility] in 2015, 2014, in 2013 for a variety of neurological symptoms including dizziness, headache, confusion. She had a lumbar puncture completed in November 2015 complicated by a spinal headache. She has a history of admission to the behavioral health unit in 2009 for depression with psychosis as well. She was last seen in our neurology clinic in October 2023 for ongoing management of migraine. She had an EEG completed in January 2023 in the context of migraines and altered mental status. The EEG was normal. This morning, she continues to report complete numbness for both lower limbs, extending to just below the umbilicus and near complete paralysis of both lower limbs. Again, episode onset was acute, in the context of severe low back pain. She is not complain of significant pain at this time and appears to be resting comfortably in bed. Affect is flat. They requested MRI of the brain and cervical spine have been completed, I independently reviewed these images. There is no evidence of acute stroke, no chronic microhemorrhage. There is a Chiari malformation/low-lying cerebellar tonsils, peg shaped cerebellar tonsils, and evidence of suboccipital craniectomy. There is no hydrocephalus. There is a partially empty sella. The brain parenchyma is grossly normal with only minimal chronic microvascular ischemic change. There is multilevel cervical spondylosis without significant central canal stenosis, normal cervical spinal cord signal, no evidence of syringomyelia. Results & Data Vital Signs (Past 12 Hours) Vital Signs Temp Pulse Resp BP Pulse Ox O2 Del Method 03/11/25 07:31 36.6 C 90 16 95/63 L 96 Room Air Laboratory Results ESR 2, total CK17, CRP less than 0.50, vitamin B12 greater than 1500, Treponema pallidum antibody negative, HIV screening negative Exam (Neuro) Neurologic: Oriented to:: Person, Place and Time Memory: Short Term Intact and Remote Intact Attention: Span Intact and Concentration Intact Speech Fluency: negative Dysarthria or Dysfluency Speech Aphasia: negative Aphasia Fund of Knowledge: Current Events, Past History and Vocabulary Cranial Nerves: Normal II, III, IV, , V, VII, VIII, IX, X, XI and XII Motor Strength: Normal Upper Extremities; negative Normal Lower Extremities Motor Tone: Normal Lower Extremities and Normal Upper Extremities Spasticity: None Sensation: negative Light Touch Intact, Pain/Temperature Intact or Proprioception Intact Coordination: negative Dysdiadochokinesia or Finger- Nose Abnormal Deep Tendon Reflexes: Rt Triceps: 2+, Lt Triceps: 2+, Rt Biceps: 2+, Lt Biceps: 2+, Rt Brachioradialis: 2+, Lt Brachioradialis: 2+, Rt Patellar: 1+, Lt Patellar: 1+, Rt Ankle: 1+ and Lt Ankle: 1+ Special Tests: negative Babinski Present Details: Patient is able to minimally wiggle the toes of both feet. She is able to lift her heels off the bed slightly. However, with direct strength testing of the quadriceps or hamstring muscles she provides no effort. Coding Level of Care Code 82588 SUB INP/OBS CARE 3/50MIN Diagnoses Bilateral leg numbness R20.0 Bilateral leg weakness R29.898 Chiari I malformation G93.5 Time Spent (min) 60 Comment Total time includes patient contact, chart review, counseling, note preparation
--- NOTE | 2025-03-12 09:07 | Hospitalist Progress Note ---
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 Provided with 500 mL NSS, Zofran 4 mg IV, morphine 4 yuliana IV x 3, and lorazepam 1 mg IV in ED. 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 No history of such. No trauma. Does have history of Lyme disease, no recent tick bites that she is aware of, however she was not aware of a previous tick bite either and was diagnosed with Lyme. History not consistent with GBS; will consider other etiologies including conversion d/o, transverse myelitis - UA negative for infection - Tick panel negative, WILSON pending - Lumbar spine MRI mild to lower lumbar discogenic degeneration - Thoracic spine MRI negative - Brain, cervical spine MRI negative - evidence of Chiari malformation and decompression re-demonstrated - Fall precautions - Heating pad if needed - Acetaminophen or Morphine prn pain, zofran prn N/V - Neurology consulted - appreciate assistance. Additional labs ordered CK low at 17, ESR and CRP neg, HIV and RPR neg, B12 appropriate, serum immunoglobulins wnl WILSON, ANCA, RF, aldolase, angiotensin converting enzyme, copper, heavy metal screen, SPEP, immunofixation, and serum free kappa pending MRI flexion/extension ordered to evaluate CSF flow Will proceed with LP, plan for IVIG Agree that presentation more consistent with functional neurological disorder than AIDP Recommend PT/OT, expect improvement with conservative management Would recommend outpatient EMG/NCS in 3 weeks for further exclusion of GBS #Psych- Buspirone, duloxetine, escitalopram, hydroxyzine, topiramate - continue #GERD- Pantoprazole - continue Dispo: Obs, med/surg VTE Prophylaxis: SCDs. Admission and Anticipated Discharge Date Admission Date: March 10, 2025 Supervising Physician Co-Signing Physician Notes I personally examined the patient and verified all lennon points of history and exam, discussed case, and agree with decision making with Dr Alatorre Bilateral leg weakness ongoing. Vitals noted, in general she is awake and alert pleasant no distress. HEENT normocephalic atraumatic mucous membranes moist. Breathing unlabored no accessory muscle use good effort. Skin without rashes pallor or icterus. Neuro shows bilateral lower extremities to be about 1 out of 10 in strength and almost absent sensation. She does push her opposite leg into the bed to try to stabilize whenever she is lifting the leg she is attempting to lift. As far as sensation, I had put my hand on her right foot and asked her to wiggle her toes, she wiggled her left toes very weakly. Then blinded to her being able to see, she had no sensation of light touch, vibration or pain/pressure bilateral lower extremities. Lower extremity weaknessgetting most recent MRI momentarily as ordered by neurology from yesterday. If this does not show any telling findings as to why her legs are numb and weak, agree with neurology that a Guillain-Hitchcock variant would be the most likely. Fortunately progression of symptoms seems to have abated. At the same time, empiric IVIG seems to be of low risk. Discussed LP with patient as well as risk and benefit, she is considering this. From a practical standpoint given that she is going to MRI momentarily I doubt we would be able to get an LP done today anyway, can certainly be done tomorrow if she agrees with proceeding, and if not, would still want to move forward with empiric IVIG. PT/OT eval and treat, almost certainly will need rehab. Subjective Patient seen and examined at bedside this morning. GANGA. Says she feels the same. Reports having somewhat similar sx years ago, which she attributes to lumbar radiculopathy, but says that episode was much less intense and only in the left leg. This episode started acutely (last Wednesday) and rapidly p rogressed to bilateral LE weakness, total numbness, and some pain. She has not tried getting out of bed since admission. Reports pain currently minimal, on morphine. No PAUL, visual disturbances, abnormal movements, CP, SOB, change in bowel or bladder fxn. Review of Systems Review of Systems: reviewed, per HPI Physical Exam Physical Exam: Gen: NAD, WD/WN HEENT: NCAT, normal conjunctiva, anicteric sclera, MMM CV: RRR, no m/r/g, S1/S2 normal, no LE edema Resp: CTAB, symmetrical chest rise, breathing non-labored/no increased WOB Abd: Soft, NT/ND, +BS, no HSM MSK: Full ROM, normal str, no gross deformities on inspection Skin: Warm, dry, well-perfused, no rashes bruising or other lesions appreciated Neuro: AOx3, CN III-XII grossly intact, str 5/5 in b/l UE, no movement of b/l LE, SILT in b/l UE and negative in b/l LE, brachioradialis triceps patellar and ankle reflexes 2+ b/l, negative Babinski Psych: Full, euthymic affect. Speech pace somewhat slowed. Thoughts linear and goal-directed. Results & Data Results & Data Vital Signs (Past 12 Hours) Vital Signs Temp Pulse Resp BP Pulse Ox O2 Del Method 03/12/25 07:04 36.7 C 75 16 92/60 L 96 Room Air Resident Activity Tracking Resident Involvement: Resident Care Provided Care Provided: Adult Hospital Medicine
--- NOTE | 2025-03-12 10:08 | Neurology Progress Note ---
Date of Service March 12, 2025 Assessment & Plan (1) Bilateral leg numbness: (2) Bilateral leg weakness: (3) Chiari I malformation: Plan This patient had the acute onset of progressive low back pain as well as progressive numbness followed by weakness in the lower extremities over a 24 to 48-hour period initiating March 07. Clinically she seems about the same over the last 24 to 48 hours with no further progression. On examination currently she has no discernible ankle/Achilles reflexes (whereas several days ago she had some trace reflexes noted by Dr. Sparks). Her leg weakness progressed from the time of presentation in the ER until the weekend 2 to 3 days later. Again, it has been about the same the last 2 days. She has incontinence of bowel and bladder and no sacral nerve root sparing at any level. She has a sensory level around T8. The etiology of her presentation is not obvious. She presented with an acute lower thoracic or even lumbosacral spine problem but MRIs of her entire neuraxis have been unremarkable/normal. She has no signs of infection or inflammation or other metabolic problem currently. 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 This would certainly be atypical since she has a discrete sensory level as well as significant weakness all involving the lower extremities. There is a rare form of Guillain-Hitchcock syndrome and involves weakness of just the legs (but they typically do not have a sensory level or much sensory involvement). There is another rare form of Guillain-Hitchcock syndrome (acute motor and sensory axonal neuropathy) which can give you discrete weakness and sensory problems, but this tends to be all 4 limbs (not just the legs). 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 The patient does have a history of migraine headaches followed by neurology clinic and is controlled on 100 mg topiramate in the evening. Recommendations: 1. Consider lumbar puncture to look for inflammatory conditions or infections of an occult nature (as well as albumin no cytologic dissociation). It is only been 5 days and a protein, elevated, which should be there. The patient had Chiari malformation surgery by Dr. 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 2. Consider IVIG per protocol for Guillain-Hitchcock syndrome. Typically 2 g/kg, spread out as 0.4 g/kg/day for 5 consecutive days. 3. EMG and nerve conduction study should be done of her legs but I can only do this as an outpatient. 4. Continue physical therapy evaluation and treatment 5. Could consider GM1, GD Ia, and GD 1B antibodies, which may be positive in AMSAN. Consider TSH and free T4 6. Overall, I have no further neurologic testing or treatment recommendations to make at this time, but will follow. 7. Once discharged, she will follow-up with Dr. Sparks.. Overall, I spent a total of 90 minutes with this case including review of records, review of MRI films, direct evaluation the patient at bedside, report generation, and discussion of the case with the patient and RN at bedside as well as Dr. Escalante, including differential diagnosis and treatment options. Admission and Anticipated Discharge Date Admission Date: March 10, 2025 Subjective Patient tells me that she had the onset of low back pain around 0700 after getting up on March 07. This progressed throughout the day and she was attending meetings and having long car rides. By 1430, she noted that her legs were numb bilaterally and symmetrically from the waist down. She also had pain in her hips that would radiate to her knees. Tylenol at work. By that evening she noted both of her legs were weak. She woke up the morning of March 08 feeling complete numbness from her waist down to her toes circumferentially bilaterally and symmetrically with some incontinence of urine and bowel as well as profound weakness of the legs. She arrived to the emergency room March 08 at 1235 and she was afebrile with no signs of infection or inflammation. The exam revealed no sensation in the lower extremities and "poor effort with strength testing". She had intact reflexes. She continued to have severe low back pain radiating into the hips and from the hips down to the knees. It was an achy pain. The patient saw Dr. Sparks, neurology, on March 09. His exam showed 2/4 reflexes in the arms and 1/4 reflexes in the legs. Strength revealed 5/5 strength diffusely in the upper extremities and cranial nerves. She was weak in both legs. MRIs of the brain, cervical spine, thoracic spine, and lumbar spine were all largely unremarkable with no cord compression or abnormalities. There was some minor degenerative changes at C5-6 and C6-7. I reviewed all of these MRI films at all of the sites. Extensive laboratory studies were unremarkable including CBC (mild anemia only), ESR (2), CHEM profile, liver profile, magnesium, iron, CK (17), CRP (less than 0.5), B12, B1, vitamin D, folate, and PTH. Lyme antibody titers and Treponema pallidum titers were unremarkable/negative. Her last TSH was normal in November 2023 and she has no known thyroid problem. Urinalysis was unremarkable Over the last 2 to 3 days, she feels she has been stable with no further weakness or numbness. Her low back pain is better with morphine. She continues to have incontinence of bowel and bladder. The patient has no complaint of headache or vision problems. She has no confusion or cognitive issues. She does have a history of anxiety but seems to be well-controlled on escitalopram 20, duloxetine 20, and buspirone 15 mg twice a day. She is followed by Brunilda Hitchcock at [place] and has been on these medications for quite a while with good control. She has had no new medicines, has had no recent illnesses in the last month or 2 and has had no recent vaccines. Today blood pressure is 92/60 with a pulse 75 and regular. She is afebrile at 36.7 Results & Data Vital Signs (Past 12 Hours) Vital Signs Temp Pulse Resp BP Pulse Ox O2 Del Method 03/12/25 07:04 36.7 C 75 16 92/60 L 96 Room Air Exam (Neuro) Physical Exam: The patient is right-handed. The patient is awake, alert, and attentive. Speech is normal without any aphasia or dysarthria. Mentation and thought processes are intact, with full orientation and normal fund of knowledge. Mood and affect are normal and appropriate. Appearance and grooming are normal. Short and long-term memory are intact, to conversation. Pupils are 4 mm bilaterally and reactive to light. Extraocular eye muscles are intact without nystagmus. Visual acuity and visual layton seem normal grossly to confrontation. There are no deficits to sensation in the face in all 3 distributions of the fifth cranial nerve bilaterally. Corneal reflexes are positive bilaterally. Facial strength and symmetry was normal bilaterally. Hearing seems intact grossly to voice and finger rub bilaterally. Palate moves well without asymmetry. There is normal sternocleidomastoid and trapezius strength bilaterally. Tongue is midline with good strength bilaterally. Neck has a full range of motion without discomfort. Cervical, thoracic, and lumbar spine are nontender to palpation. Gait is not testable as she is bedbound and is too weak to walk. Patient can sit up some but it increases low back pain With outstretched arms there is no drift. There are no resting, postural, or action tremors. There is no ataxia with finger to nose testing. There is good facility in the hands. No other abnormal involuntary movements are noted. Motor strength is 5/5 diffusely in the arms bilaterally including deltoids, biceps, triceps, brachioradialis, wrist flexors and extensors, records manager, and intrinsic hand muscles. Motor strength is 44+/5 bilaterally in the hip flexors and quadriceps muscles bilaterally. Adductors were 4+/5 and abductors of the hip were 4/5 bilaterally. Tibialis anterior, tibialis posterior, peroneal, and gastrocnemius muscles were 2/5 bilaterally and toes were 1/5 bilaterally. There was decreased tone in the lower extremities and normal tone in the upper extremities bilaterally. Sensory examination is intact to touch and pin throughout in the upper extremities, face, and trunk around the level of T8 up bilaterally and symmetrically both ventrally and dorsally. There was decrease sensation to pin diffusely in the lower extremities from the soles of the feet and toes all the way up circumferentially and symmetrically to approximately T8 both ventrally and dorsally. There was some abrupt cut off ventrally but dorsally there was some graded improvement of sensation from the buttocks up towards the T8 area bilaterally. She had decreased pin in sacral distributions including the anus and labia bilaterally (no sacral sparing). With deep pain applied to the distal second toes bilaterally she had immediate sensation and withdrawal Reflexes are 2/4 in the biceps, triceps, brachioradialis, and quadriceps tendons bilaterally. Achilles tendon reflexes were absent bilaterally. Toes are downgoing with plantar stimulation bilaterally. Peripheral pulses are present and of normal quality distally in all 4 limbs. There is no peripheral edema noted in the limbs. PG Care Time/CCT Total # of Minutes Spent Total Time Spent with Patient: Total time spent is greater than 50% in coordination of care (as documented) at patient's floor/unit and/or counseling patient: Coding Level of Care Code 00485 SUB INP/OBS CARE 350MIN Diagnoses Bilateral leg numbness R20.0 Bilateral leg weakness R29.898 Chiari I malformation G93.5 Time Spent (min) 90
--- NOTE | 2025-03-12 13:13 | Magnetic Resonance Report ---
MR cervical sp flex/ext CSF wo HISTORY: 44 years-old Female Chiari, leg weakness low-lying cerebellar tonsils with prior suboccipit al craniectomy. COMPARISON: MRI 03/10/2025 TECHNIQUE: MR cervical spine without IV contrast was utilizing with flexion and extension. C7 analysi s FINDINGS: Study is mildly motion degraded. No acute fracture, subluxation or significant marrow edema. No epidu ral or paraspinal fluid collections. Prior suboccipital craniectomy with low lying cerebellar tonsils . Normal signal within the cervical and imaged upper thoracic spinal cord. Normal CSF flow with, flex ion and extension. C2-C3: No central canal or foraminal narrowing. C3-C4: Mild uncovertebral hypertrophy. No central canal or foraminal narrowing. C4-C5: Mild uncovertebral hypertrophy with tiny posterior annular disc bulge. No central canal or for aminal narrowing. C5-C6: Mild to moderate intervertebral disc space narrowing with circumferential disc osteophyte comp hanna which is similar to slightly progressed from prior. Mild central canal stenosis with AP dimension of the thecal sac measuring 7 mm. C6-C7: Mild intervertebral disc space narrowing with uncovertebral hypertrophy and posterior annular disc bulge/disc osteophyte complex. Minimal central canal stenosis. The neural foramen are patent. C7-T1: No central canal or foraminal narrowing. IMPRESSION: 1. Motion degraded exam with normal CSF flow study. Low-lying cerebellar tonsils with prior suboccipi mikel craniectomy. 2. Discogenic degeneration again noted most pronounced at C5-C6 and C6-C7 as above. 3. No high-grade central canal or foraminal narrowing. 4. Normal signal of the cervical spinal cord. ACT 112: Negative or not required by law. The above report was generated using voice recognition software. It may contain grammatical, syntax o r spelling errors. Electronically signed by: Randall Gonzalez M.D. 03/12/2025 1:12 PM
[2025-03-12] MEDS ORDERED: IMMUNE GLOBULIN (HUMAN) SOLN IV SCH (14:45)
[2025-03-12] MEDS: Octagam 10% IVIG 5 gram bottle IV SCH (17:00)
--- NOTE | 2025-03-12 17:49 | Billing Data ---
Date of Service March 12, 2025 Coding Level of Care Code 66916 SUB INP/OBS CARE MIN
[2025-03-12] MEDS: Octagam 10% IVIG 20 gram bottle IV SCH (18:16)
[2025-03-12 18:46] LABS: Anti Nuclear Antibody Screen POSITIVE (NEGATIVE)
[2025-03-13] MEDS: LACTATED RINGER'S 1,000 ML IV ONE (07:22)
[2025-03-13 07:25] LABS: Hematocrit (blood only) 32.2 % (37.0-47.0); Hemoglobin 11.0 g/dl (12.0-16.0); Mean Corpuscular Hemoglobin 31.1 pg (25.0-34.0); Mean Corpuscular Volume 91.0 fL (80.0-100.0); Platelet Count 127 K/uL (130-400); RDW Standard Deviation 40.1 fL (36.4-46.3); Red Blood Count 3.54 M/uL (4.20-5.40); White Blood Count 4.12 K/ul (4.8-10.8)
[2025-03-13 07:37] LABS: Anion Gap 4.0 (3-11); Blood Urea Nitrogen 9.0 mg/dl (6-23); Calcium 8.2 mg/dl (8.6-10.3); Carbon Dioxide 23.0 mmol/L (21-32); Chloride 110.0 mmol/L (98-107); Creatinine Clr Calc Pharmacy 66.1 ml/min; Glucose 102.0 mg/dl (70-99(Fasting)); Potassium 3.7 mmol/L (3.5-5.1); Sodium 137.0 mmol/L (136-145)
[2025-03-13] MEDS: Octagam 10% IVIG 5 gram bottle IV SCH (08:42)
--- NOTE | 2025-03-13 09:33 | Neurology Progress Note ---
Date of Service March 13, 2025 Assessment & Plan (1) Bilateral leg numbness: (2) Bilateral leg weakness: (3) Chiari I malformation: Plan This patient had the acute onset of progressive low back pain as well as progressive numbness followed by weakness in the lower extremities over a 24 to 48-hour period initiating March 07. Clinically she seems about the same over the last 24 to 48 hours with no further progression. On examination currently she has no discernible ankle/Achilles reflexes (whereas several days ago she had some trace reflexes noted by Dr. Sparks). Her leg weakness progressed from the time of presentation in the ER until the weekend 2 to 3 days later. Again, it has been about the same the last 2 days. She has incontinence of bowel and bladder and no sacral nerve root sparing at any level. She has a sensory level around T8. The etiology of her presentation is not obvious. She presented with an acute lower thoracic or even lumbosacral spine problem but MRIs of her entire neuraxis have been unremarkable/normal. She has no signs of infection or inflammation or other metabolic problem currently. 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 This would certainly be atypical since she has a discrete sensory level as well as significant weakness all involving the lower extremities. There is a rare form of Guillain-Hitchcock syndrome and involves weakness of just the legs (but they typically do not have a sensory level or much sensory involvement). There is another rare form of Guillain-Hitchcock syndrome (acute motor and sensory axonal neuropathy) which can g monica you discrete weakness and sensory problems, but this tends to be all 4 limbs (not just the legs). 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 The patient does have a history of migraine headaches followed by neurology clinic and is controlled on 100 mg topiramate in the evening. Recommendations: 1. LP was deferred. 2. 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 3. EMG and nerve conduction study should be done of her legs but I can only do this as an outpatient. 4. Continue physical therapy evaluation and treatment 5. Could consider GM1, GD Ia, and GD 1B antibodies, which may be positive in AMSAN. Consider TSH and free T4 6. Overall, I have no further neurologic testing or treatment recommendations to make at this time, but will follow. 7. Once discharged, she will follow-up with Dr. Sparks.. Overall, I spent a total of 25 minutes with this case including review of records, direct evaluation the patient at bedside, report generation, and discussion of the case with the patient and RN at bedside. Admission and Anticipated Discharge Date Admission Date: March 10, 2025 Subjective Patient feels the same with her low back and legs compared to yesterday. She has no new issues or progression. The patient received her first dose of IVIG per protocol yesterday. She is on her second dose today. LP was deferred. Blood pressure is 92/60 and she is afebrile. Results & Data Vital Signs (Past 12 Hours) Vital Signs Temp Pulse Resp BP Pulse Ox O2 Del Method 03/13/25 07:04 37.0 C 90 16 92/60 L 97 Room Air 03/13/25 00:05 94 H 16 95/63 L Exam (Neuro) Physical Exam: She is awake and alert. Speech is without aphasia or dysarthria. Mood is reasonable and affect is appropriate. Arms are abnormal function as per yesterday. Leg strength is as per yesterday as well both proximally and distally. PG Care Time/CCT Total # of Minutes Spent Total Time Spent with Patient: Total time spent is greater than 50% in coordination of care (as documented) at patient's floor/unit and/or counseling patient: Coding Level of Care Code 94681 SUB INP/OBS CARE /25MIN Diagnoses Bilateral leg numbness R20.0 Bilateral leg weakness R29.898 Chiari I malformation G93.5 Time Spent (min) 25
[2025-03-13] MEDS: Octagam 10% IVIG 20 gram bottle IV SCH (10:01)
[2025-03-13 11:34] LABS: ANA Titer 1:320 titer
--- NOTE | 2025-03-13 12:40 | Hospitalist Progress Note ---
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 Provided with 500 mL NSS, Zofran 4 mg IV, morphine 4 yuliana IV x 3, and lorazepam 1 mg IV in ED. 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 No history of such. No trauma. Does have history of Lyme disease, no recent tick bites that she is aware of, however she was not aware of a previous tick bite either and was diagnosed with Lyme. History not consistent with GBS; will consider other etiologies including conversion d/o, transverse myelitis - UA negative for infection - Tick panel negative, WILSON pending - Lumbar spine MRI mild to lower lumbar discogenic degeneration - Thoracic spine MRI negative - Brain, cervical spine MRI negative - evidence of Chiari malformation and decompression re-demonstrated - Fall precautions - Heating pad if needed - Acetaminophen or Morphine prn pain, zofran prn N/V - Neurology consulted - appreciate assistance. Additional labs ordered: CK low at 17, ESR and CRP neg, HIV and RPR neg, B12 appropriate, serum immunoglobulins wnl WILSON, ANCA, RF, aldolase, angiotensin converting enzyme, copper, heavy metal screen, SPEP, immunofixation, and serum free kappa pending Would recommend outpatient EMG/NCS in 3 weeks for further exclusion of GBS - MRI flexion/extension 03/12 showed no high-grade central canal or foraminal narrowing; normal CSF flow - Pt unsure about proceeding with LP - No improvement after first dose IVIG. Will receive 2nd dose today - PT/OT consulted #Psych- Buspirone, duloxetine, escitalopram, hydroxyzine, topiramate - continue #GERD- Pantoprazole - continue Dispo: Obs, med/surg VTE Prophylaxis: SCDs. Admission and Anticipated Discharge Date Admission Date: March 10, 2025 Supervising Physician Co-Signing Physician Notes I personally examined the patient and verified all lennon points of history and exam, discussed case, and agree with decision making with Dr Alatorre feels about the same. No new problems, but also no real improvement. Vitals noted, in general she is awake and alert pleasant no distress. HEENT normocephalic atraumatic mucous membranes moist. Breathing unlabored no accessory muscle use good effort. Neuro exam to me is essentially identical to yesterdayessentially absent sensation bilateral lower extremities with about 1 out of 5 motor. Case discussed with neurology as well, input appreciated. Lower extremity weakness No striking findings on extensive workup. Patient still ambivalent about whether or not she would want to undergo the risk of an LP, and at the same time, given that a Guillain-Hitchcock type variant would be our lead differential, we are treating with IVIG empirically. Today is day 2 out of 5. Anticipate need for rehab after discharge. Updated patient on working diagnosis and plans, answered all questions to the best of my ability. Subjective Patient seen and examined in bed today. Reports she feels the same, with numbness and weakness below her belly button. Pain is similar, well-controlled with current analgesics. She did get her first dose of IVIG yesterday; reports not noticing any effect yet. Will get her second dose today, per protocol. Still deliberating if she wants the LP. No PALU, CP, SOB, or other new complaints. Review of Systems Review of Systems: reviewed, per HPI Physical Exam Physical Exam: Gen: NAD, WD/WN HEENT: NCAT, normal conjunctiva, anicteric sclera, MMM CV: RRR, no m/r/g, S1/S2 normal, no LE edema Resp: CTAB, symmetrical chest rise, breathing non-labored/no increased WOB Abd: Soft, NT/ND, +BS, no HSM MSK: Full ROM, normal str, no gross deformities on inspection Skin: Warm, dry, well-perfused, no rashes bruising or other lesions appreciated Neuro: AOx3, CN III-XII grossly intact, str 5/5 in b/l UE and 1/5 in b/l LE, SILT in b/l UE and negative in b/l LE, brachioradialis and triceps reflexes 2+ b/l, patellar and ankle reflexes absent b/l, negative Babinski Psych: Slightly restricted affect. Slightly slowed speech. Thoughts linear and goal-directed. Results & Data Results & Data Vital Signs (Past 12 Hours) Vital Signs Temp Pulse Resp BP Pulse Ox O2 Del Method 03/13/25 07:04 37.0 C 90 16 92/60 L 97 Room Air Resident Activity Tracking Resident Involvement: Resident Care Provided Care Provided: Adult Hospital Medicine
--- NOTE | 2025-03-13 13:31 | Billing Data ---
Date of Service March 13, 2025 Coding Level of Care Code 84707 SUB INP/OBS CARE MIN
[2025-03-14 06:27] LABS: Hematocrit (blood only) 32.1 % (37.0-47.0); Hemoglobin 10.8 g/dl (12.0-16.0); Mean Corpuscular Hemoglobin 31.2 pg (25.0-34.0); Mean Corpuscular Volume 92.8 fL (80.0-100.0); Platelet Count 121 K/uL (130-400); RDW Standard Deviation 40.9 fL (36.4-46.3); Red Blood Count 3.46 M/uL (4.20-5.40); White Blood Count 3.07 K/ul (4.8-10.8)
[2025-03-14 06:32] LABS: Albumin 3.3 g/dL (3.8-4.8); Beta-1-Globulin 0.3 g/dL (0.4-0.6); Gamma Globulin 0.7 g/dL (0.8-1.7); Total Protein 5.2 g/dL (6.1-8.1)
[2025-03-14 06:50] LABS: Anion Gap 2.0 (3-11); Blood Urea Nitrogen 8.0 mg/dl (6-23); Calcium 8.3 mg/dl (8.6-10.3); Carbon Dioxide 25.0 mmol/L (21-32); Chloride 109.0 mmol/L (98-107); Creatinine Clr Calc Pharmacy 66.1 ml/min; Glucose 85.0 mg/dl (70-99(Fasting)); Potassium 3.8 mmol/L (3.5-5.1); Sodium 136.0 mmol/L (136-145)
--- NOTE | 2025-03-14 07:51 | Hospitalist Progress Note ---
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 Provided with 500 mL NSS, Zofran 4 mg IV, morphine 4 yuliana IV x 3, and lorazepam 1 mg IV in ED. #Intractable back pain/weakness Back pain day [employer], associated bilateral leg weakness and now bladder incontinence. No history of such. No trauma. Does have history of Lyme disease, no recent tick bites that she is aware of, however she was not aware of a previous tick bite either and was diagnosed with Lyme. History not consistent with GBS; will consider other etiologies including conversion d/o, transverse myelitis - UA negative for infection - Tick panel negative, WILSON pending - Lumbar spine MRI mild to lower lumbar discogenic degeneration - Thoracic spine MRI negative - Brain, cervical spine MRI negative - evidence of Chiari malformation and decompression re-demonstrated - Fall precautions - Heating pad if needed - Acetaminophen or Morphine prn pain, zofran prn N/V - Neurology consulted - appreciate assistance. Additional labs ordered: CK low at 17, ESR and CRP neg, HIV and RPR neg, B12 appropriate, serum immunoglobulins wnl WILSON, ANCA, RF, aldolase, angiotensin converting enzyme, copper, heavy metal screen, SPEP, immunofixation, and serum free kappa pending Would recommend outpatient EMG/NCS in 3 weeks for further exclusion of GBS - MRI flexion/extension 03/12 showed no high-grade central canal or foraminal narrowing; normal CSF flow - Pt unsure about proceeding with LP - PT/OT consulted - No improvement after 2 doses IVIG. Will receive 3rd dose today. Plan for total 5 doses then skilled rehab #Psych- Buspirone, duloxetine, escitalopram, hydroxyzine, topiramate - continue #GERD- Pantoprazole - continue Dispo: Obs, med/surg VTE Prophylaxis: SCDs. Admission and Anticipated Discharge Date Admission Date: March 10, 2025 Supervising Physician Co-Signing Physician Notes I personally examined the patient and verified all lennon points of history and exam, discussed case, and agree with decision making with Dr Alatorre Continues to feel about the same. d/w neuro who notes they have seen lyme present like this before as they continue to consider her situation. Vitals noted, in general she is awake and alert pleasant no distress. HEENT normocephalic atraumatic mucous membranes moist. Breathing unlabored no accessory muscle use good effort. Lower extremity weakness No striking findings on extensive workup. Patient has been ambivalent about whether or not she would want to undergo the risk of an LP, and at the same time, given that a Guillain-Hitchcock type variant would be our lead differential, we are treating with IVIG empirically. Today is day 3 out of 5. Given that with ongoing consideration, neurology does recall seeing a case of fulminant Lyme disease presenting similarly, we are discussing the risk/benefit of how to approach this furthergiven that we are in such an endemic area empiric treatment may end up being the best choice, we did discuss sending a Western blot or follow-up lab testing, but it does have a reasonably high false-negative rateespecially given the pretest probability in the area, will discuss risk/benefit with patient, but low threshold to treat empirically as though this could be neurologic Lyme as well. Anticipate need for rehab after discharge. Subjective Patient seen and examined in bed today. Reports she feels the same, with numbness and weakness below her belly button. Pain is similar, well-controlled with current analgesics. She has now had 2 doses of IVIG; reports not noticing any effect still. Discussed expected treatment course and plan for 3 more days I VIG then skilled rehab. She is agreeable. No PAUL, CP, SOB, or other new complaints. Review of Systems Review of Systems: reviewed, per HPI Physical Exam Physical Exam: Gen: NAD, WD/WN HEENT: NCAT, normal conjunctiva, anicteric sclera, MMM CV: RRR, no m/r/g, S1/S2 normal, no LE edema Resp: CTAB, symmetrical chest rise, breathing non-labored/no increased WOB Abd: Soft, NT/ND, +BS, no HSM MSK: Full ROM, normal str, no gross deformities on inspection Skin: Warm, dry, well-perfused, no rashes bruising or other lesions appreciated Neuro: AOx3, CN III-XII grossly intact, str 5/5 in b/l UE and 1/5 in b/l LE, SILT in b/l UE and negative in b/l LE, patellar and ankle reflexes absent b/l, negative Babinski Psych: Slightly restricted affect. Slightly slowed speech. Thoughts linear and goal-directed. Results & Data Results & Data Vital Signs (Past 12 Hours) Vital Signs Temp Pulse Resp BP Pulse Ox O2 Del Method 03/14/25 07:24 36.9 C 71 16 97/63 L 98 Room Air 03/13/25 22:07 Room Air Resident Activity Tracking Resident Involvement: Resident Care Provided Care Provided: Adult Hospital Medicine
--- NOTE | 2025-03-14 09:24 | Neurology Progress Note ---
Date of Service March 14, 2025 Assessment & Plan (1) Bilateral leg numbness: (2) Bilateral leg weakness: (3) Chiari I malformation: Plan This patient had the acute onset of progressive low back pain as well as progressive numbness followed by weakness in the lower extremities over a 24 to 48-hour period initiating March 07. Clinically she seems about the same over the last 24 to 48 hours with no further progression, despite 2 days of IVIG. On examination currently she has no discernible ankle/Achilles reflexes (whereas several days ago she had some trace reflexes noted by Dr. Sparks). Her leg weakness progressed from the time of presentation in the ER until the weekend 2 to 3 days later. Again, it has been about the same the last several days. She has incontinence of bowel and bladder and no sacral nerve root sparing at any level. She has a sensory level around T8. This is unchanged. The etiology of her presentation is not obvious. She presented with an acute lower thoracic or even lumbosacral spine problem but MRIs of her entire neuraxis have been unremarkable/normal. She has no signs of infection or inflammation or other metabolic problem currently. I have seen this kind of presentation with a fulminant Lyme disease but her Lyme screening test was negative. 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 This would certainly be atypical since she has a discrete sensory level as well as significant weakness all involving the lower extremities. There is a rare form of Guillain-Hitchcock syndrome and involves weakness of just the legs (but they typically do not have a sensory level or much sensory involvement). There is another rare form of Guillain-Hitchcock syndrome (acute motor and sensory axonal neuropathy) which can give you discrete weakness and sensory problems, but this tends to be all 4 limbs (not just the legs). 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 The patient does have a history of migraine headaches followed by neurology clinic and is controlled on 100 mg topiramate in the evening. Recommendations: 1. LP was deferred. 2. 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 3. EMG and nerve conduction study should be done of her legs but I can only do this as an outpatient. 4. Continue physical therapy evaluation and treatmentthe patient would make a good rehabilitation hospital candidate when IVIG is finished. 5. Could consider GM1, GD Ia, and GD 1B antibodies, which may be positive in AMSAN. Consider TSH and free T4 6. Overall, I have no further neurologic testing or treatment recommendations to make at this time, but will follow. 7. Once discharged, she will follow-up with Dr. Sparks.. Overall, I spent a total of 35 minutes with this case including review of records, direct evaluation the patient at bedside, report generation, and discussion of the case with the patient and RN at bedside. Admission and Anticipated Discharge Date Admission Date: March 10, 2025 Subjective Patient feels about the same today as she has the last couple of days. Her pain is better in her low back because of morphine. She still has the same weakness and dysesthesias in her legs as before. She is getting day 3 of IVIG (over 5-day protocol). Patient has mild anemia on CBC mildly low calcium but otherwise CHEM profile was unremarkable. Blood pressure this morning was 97/63 with a pulse of 71 and she is afebrile. Results & Data Vital Signs (Past 12 Hours) Vital Signs Temp Pulse Resp BP Pulse Ox O2 Del Method 03/14/25 07:24 36.9 C 71 16 97/63 L 98 Room Air 03/13/25 22:07 Room Air Exam (Neuro) Physical Exam: She is awake and alert. Speech is without aphasia or dysarthria. Mood is normal and affect is flat but otherwise unremarkable Coordination is normal in the arms with good strength and tone. Extraocular eye muscles are intact without nystagmus. There is no facial droop. Tongue is midline. Leg strength is 4 -/5 proximally in the lower extremities and 12/5 distally bilaterally. Toes are downgoing with plantar stimulation bilaterally. PG Care Time/CCT Total # of Minutes Spent Total Time Spent with Patient: Total time spent is greater than 50% in coordination of care (as documented) at patient's floor/unit and/or counseling patient: Coding Level of Care Code 25046 SUB INP/OBS CARE 2/35MIN Diagnoses Bilateral leg numbness R20.0 Bilateral leg weakness R29.898 Chiari I malformation G93.5 Time Spent (min) 35
[2025-03-14 14:42] LABS: Copper, Serum 84.0 mcg/dL (70-175)
--- NOTE | 2025-03-14 18:23 | Billing Data ---
Date of Service March 14, 2025 Coding Level of Care Code 05963 SUB INP/OBS CARE
[2025-03-15 06:39] LABS: Hematocrit (blood only) 34.0 % (37.0-47.0); Hemoglobin 11.5 g/dl (12.0-16.0); Mean Corpuscular Hemoglobin 30.7 pg (25.0-34.0); Mean Corpuscular Volume 90.9 fL (80.0-100.0); Platelet Count 124 K/uL (130-400); RDW Standard Deviation 39.4 fL (36.4-46.3); Red Blood Count 3.74 M/uL (4.20-5.40); White Blood Count 2.99 K/ul (4.8-10.8)
--- NOTE | 2025-03-15 06:51 | Hospitalist Progress Note ---
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 Provided with 500 mL NSS, Zofran 4 mg IV, morphine 4 yuliana IV x 3, and lorazepam 1 mg IV in ED. #Intractable back pain/weakness Back pain day [employer], associated bilateral leg weakness and now bladder incontinence. No history of such. No trauma. Does have history of Lyme disease, no recent tick bites that she is aware of, however she was not aware of a previous tick bite either and was diagnosed with Lyme. History not consistent with GBS; will consider other etiologies including conversion d/o, transverse myelitis - UA negative for infection - Tick panel negative, WILSON pending - Lumbar spine MRI mild to lower lumbar discogenic degeneration - Thoracic spine MRI negative - Brain, cervical spine MRI negative - evidence of Chiari malformation and decompression re-demonstrated - Fall precautions - Heating pad if needed - Acetaminophen or Morphine prn pain, zofran prn N/V - Neurology consulted - appreciate assistance. Additional labs ordered: CK low at 17, ESR and CRP neg, serum immunoglobulins wnl, SPEP c/w non- selective protein loss, Serum free kappa 16.7 & free lambda 96 w/ K/L ratio slightly elevated at 1.74 HIV and RPR neg, B12 appropriate, aldolase 7.4, GREGORIA 29, serum copper 84, urine heavy metal screen neg WILSON titer 1:320 AC-2 (dense fine speckled) pattern Immunofixation inconclusive; may need repeat serum and/or urine immunofixation electrophoresis Similar sx previously seen in pt w/ Lyme. Pt's negative Lyme screen does not fully r/o this possibility MRI flexion/extension 03/12 showed no high-grade central canal or foraminal narrowing; normal CSF flow - PT/OT consulted. Plan for skilled rehab upon discharge - 3 doses IVIG so far. Plan for total 5 doses total - Will start doxycycline 100mg bid. If no improvement by >7d tx, can discontinue. 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 Admission and Anticipated Discharge Date Admission Date: March 10, 2025 Supervising Physician Co-Signing Physician Notes I personally examined the patient and verified all lennon points of history and exam, discussed case, and agree with decision making with Dr Alatorre feeling slightly better. Able to move legs a little bit more. Was able to stand for about 30 seconds yesterday with therapy. Has slight sensation to the back of her right heel. And no new problems. Short has been removed. Vitals noted, in general she is awake and alert pleasant no distress. HEENT normocephalic atraumatic mucous membranes moist. Breathing unlabored no accessory muscle use good effort. Still essentially absent lower extremity sensation to light touch vibration and pain, but motor is slightly betterstill technically really 1 out of 5 but slightly stronger, and subjectively she does have mild sensation to the back of her right heel Lower extremity weakness No striking findings on extensive workup. Patient has been understandably ambivalent about whether or not she would want to undergo the risk of an LP, and at the same time, given that a Guillain-Hitchcock type variant would be our lead differential, we are treating with IVIG empirically. Today is day 4 out of 5. Given that with ongoing consideration, neurology does recall seeing a case of fulminant Lyme disease presenting similarly, we are discussing the risk/benefit of how to approach this furthergiven that we are in such an endemic area empiric treatment may end up being the best choice, after discussion she agrees - doxy started. is showing some improvement though! (short time standing, slightly better motor although still profoundly weak, slight sensation to R heel, bladder sensation enough to dc short). rehab once able Subjective Patient seen and examined in bed today. In good spirits this morning, reports finally feeling some improvement. R heel has sensation and both legs have some distal strength returning. Pain is similar, well-controlled with current analgesics. She is on her 3rd dose of IVIG. Understanding and accepting of plan for 5 total days IVIG then skilled rehab. Discussed possible involvement of Lyme; she is open to trying treatment for that. No PAUL, CP, SOB, or other new complaints. Review of Systems Review of Systems: reviewed, per HPI Physical Exam Physical Exam: Gen: NAD, WD/WN HEENT: NCAT, normal conjunctiva, anicteric sclera, MMM CV: RRR, no m/r/g, S1/S2 normal, no LE edema Resp: CTAB, symmetrical chest rise, breathing non-labored/no increased WOB Abd: Soft, NT/ND, +BS, no HSM Skin: Warm, dry, well-perfused, no rashes bruising or other lesions appreciated Neuro: AOx3, CN III-XII grossly intact, str 5/5 in both UE and 2/5 in both LE, able to wiggle toes and lift legs shows improvement from prior exams, SILT in b/l UE and R heel, otherwise negative in b/l LE Psych: Slightly restricted affect. Slightly slowed speech. Thoughts linear and goal-directed. Results & Data Results & Data Vital Signs (Past 12 Hours) Vital Signs Temp Pulse Resp BP Pulse Ox O2 Del Method 03/14/25 19:20 36.5 C 72 16 95/59 L 97 Room Air Resident Activity Tracking Resident Involvement: Resident Care Provided Care Provided: Adult Hospital Medicine
[2025-03-15 07:05] LABS: Anion Gap 4.0 (3-11); Blood Urea Nitrogen 9.0 mg/dl (6-23); Calcium 8.4 mg/dl (8.6-10.3); Carbon Dioxide 24.0 mmol/L (21-32); Chloride 108.0 mmol/L (98-107); Creatinine Clr Calc Pharmacy 76.2 ml/min; Glucose 80.0 mg/dl (70-99(Fasting)); Potassium 3.7 mmol/L (3.5-5.1); Sodium 136.0 mmol/L (136-145)
[2025-03-15 07:31] LABS: Arsenic, Urine None Detected; Lead, Urine None Detected; Mercury, Urine None Detected
--- NOTE | 2025-03-15 08:32 | Neurology Progress Note ---
Date of Service March 15, 2025 Assessment & Plan (1) Bilateral leg numbness: (2) Bilateral leg weakness: (3) Chiari I malformation: Plan This patient had the acute onset of progressive low back pain as well as progressive numbness and weakness in the lower extremities, over a 24 to 48-hour period initiating March 07. Interestingly, the patient had preserved quadriceps and Achilles tendon reflexes on March 09. When I saw her on March 12, the quadriceps reflex was 2/4 and the Achilles reflexes absent. Today, the quadriceps tendon reflexes trace only indicates a progression of reflex loss over this 1+ week history and is consistent with a progression that could be seen in an acute inflammatory neuropathy such as Guillain-Hitchcock syndrome. Clinically, after 3 days of IVIG, she is starting to get a little sensation in her heel on 1 side and I believe her proximal leg strength is slightly improved compared to prior to the IVIG. This indicates a very mild improvement. She has had incontinence of bowel and bladder and no sacral nerve root sparing at any level to pin. She may be improving some with the bowel incontinence. She has a sensory level around T8. This is unchanged. The etiology of her presentation is not obvious. She presented with an acute lower thoracic or even lumbosacral spine problem but MRIs of her entire neuraxis have been unremarkable/normal. I have seen this type of presentation with acute Lyme disease, however, she has no signs of infection and her Lyme screening test was negative. There has been no evidence of other inflammatory, metabolic, or toxic etiologies. 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 This would certainly be atypical since she has a discrete sensory level as well as significant weakness all involving the lower extremities. There is a rare form of Guillain-Hitchcock syndrome that involves weakness of just the legs (paraparesis GBS), but this typically does not have sensory involvement. There is another rare form of Guillain-Hitchcock syndrome called acute motor and sensory axonal neuropathy (AMSAN, presents with both motor and sensory deficits, but this typically is in all 4 limbs (not just the legs). 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 The patient does have a history of migraine headaches followed by neurology clinic and is controlled on 100 mg topiramate in the evening. IVIG is known to increase CSF protein (and cells) anywhere from 2-5 times normal. After a week or 2, this goes back to baseline. Therefore, doing an LP now, after having started IVIG, would not be helpful from a protein standpoint. Recommendations: 1. Consider Lyme Western blot. If positive then treat with appropriate antibiotics 2. 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 3. EMG and nerve conduction study should be done of her legs but I can only do this as an outpatient. Arrange for this soon as possible for discharge with me at [facility] outpatient neurology 4. Continue physical and occupational therapy. This patient would make an excellent rehabilitation hospital candidate 5. Could consider GM1, GD Ia, and GD 1B antibodies, which may be positive in AMSAN. 6. Consider TSH and free T4. 7. Once discharged, she will follow-up with Dr. Sparks. Overall, I spent a total of 55 minutes with this case including review of records, direct evaluation the patient at bedside, report generation, and discussion of the case with the patient and RN at bedside, and Dr. Escalante, including differential diagnosis and treatment options.. Admission and Anticipated Discharge Date Admission Date: March 10, 2025 Subjective Patient tells me that she continues to have lower back pain and bilateral hip pain. There is no radiation of this pain down the legs. The pain is a sharp pain and can be quite intense. Yesterday, she was out of bed to chair for 4 hours and by the end of that she had increased pain. This more she does not have much in the way of pain as she has had morphine and this helps considerably. Patient tells me that this morning she is feel feel tingling/[id number] in her right heel which was not present prior. She thinks her strength is about the same. She has no symptoms in her arms. The patient believes that she has better bowel incontinence control. She still has a catheter in so she is not sure about urine. Today will be day 4 of IVIG and she tolerates it well with no side effects. She is not getting headaches or neck pain. CBC and CHEM profile today are largely unremarkable. Blood pressure is 94/63 and she is afebrile. Results & Data Vital Signs (Past 12 Hours) Vital Signs Temp Pulse Resp BP Pulse Ox O2 Del Method 03/15/25 07:17 36.7 C 72 16 94/63 L 97 Room Air Exam (Neuro) Physical Exam: She is awake and alert. Speech is without aphasia or dysarthria. Mood is normal and affect is much more appropriate today. (She seems a little less depressed and flat compared to previous days this week). Thought processes and mentation are normal to conversation. Extraocular eye muscles are intact without nystagmus. There is no facial droop. Tongue is midline. Coordination is normal in the arms without tremor or ataxia. Motor strength is 5/5 diffusely in all major muscle groups of the arms both proximally and distally bilaterally and symmetrically. Reflexes in the upper extremities are 2/4 in the biceps, triceps, and brachioradialis tendons bilaterally. In the legs, strength is 4 -/5 in the hip flexors and quads and seems to be a little bit stronger and able to hold her heel on the bed longer than earlier this week. Distally, she is still 12/5 bilaterally. She had some slight dorsiflexion at the ankle bilaterally which I did not appreciate previously. Reflexes are trace in the quadriceps tendons bilaterally (this is markedly worse than when I checked her reflexes March 12). Achilles tendon reflexes are still absent bilaterally. The patient still has a sensory level around T8 as before PG Care Time/CCT Total # of Minutes Spent Total Time Spent with Patient: Total time spent is greater than 50% in coordination of care (as documented) at patient's floor/unit and/or counseling patient: Coding Level of Care Code 28013 SUB INP/OBS CARE 3/50MIN Diagnoses Bilateral leg numbness R20.0 Bilateral leg weakness R29.898 Chiari I malformation G93.5 Time Spent (min) 55
[2025-03-15] MEDS: DOXYCYCLINE HYCLATE 100 MG CAP PO SCH (11:15)
--- NOTE | 2025-03-15 18:23 | Billing Data ---
Date of Service March 15, 2025 Coding Level of Care Code 82401 SUB INP/OBS CARE
[2025-03-16 07:04] LABS: Hematocrit (blood only) 33.9 % (37.0-47.0); Hemoglobin 11.9 g/dl (12.0-16.0); Mean Corpuscular Hemoglobin 31.4 pg (25.0-34.0); Mean Corpuscular Volume 89.4 fL (80.0-100.0); Platelet Count 142 K/uL (130-400); RDW Standard Deviation 38.1 fL (36.4-46.3); Red Blood Count 3.79 M/uL (4.20-5.40); White Blood Count 3.38 K/ul (4.8-10.8)
[2025-03-16 07:28] LABS: Anion Gap 4.0 (3-11); Blood Urea Nitrogen 10.0 mg/dl (6-23); Calcium 8.6 mg/dl (8.6-10.3); Carbon Dioxide 25.0 mmol/L (21-32); Chloride 106.0 mmol/L (98-107); Creatinine Clr Calc Pharmacy 67.5 ml/min; Glucose 80.0 mg/dl (70-99(Fasting)); Potassium 3.6 mmol/L (3.5-5.1); Sodium 135.0 mmol/L (136-145)
--- NOTE | 2025-03-16 08:05 | Hospitalist Progress Note ---
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 Provided with 500 mL NSS, Zofran 4 mg IV, morphine 4 yuliana IV x 3, and lorazepam 1 mg IV in ED. 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 No history of such. No trauma. Does have history of Lyme disease, no recent tick bites that she is aware of, however she was not aware of a previous tick bite either and was diagnosed with Lyme. History not consistent with GBS; will consider other etiologies including conversion d/o, transverse myelitis - UA negative for infection - Tick panel negative, WILSON pending - Lumbar spine MRI mild to lower lumbar discogenic degeneration - Thoracic spine MRI negative - Brain, cervical spine MRI negative - evidence of Chiari malformation and decompression re-demonstrated - Fall precautions - Heating pad if needed - Acetaminophen or Morphine prn pain, zofran prn N/V - Neurology consulted - appreciate assistance. Additional labs ordered: CK low at 17, ESR and CRP neg, serum immunoglobulins wnl, SPEP c/w non- selective protein loss, Serum free kappa 16.7 & free lambda 96 w/ K/L ratio slightly elevated at 1.74 HIV and RPR neg, B12 appropriate, aldolase 7.4, GREGORIA 29, serum copper 84, urine heavy metal screen neg WILSON titer 1:320 AC-2 (dense fine speckled) pattern Immunofixation inconclusive; may need repeat serum and/or urine immunofixation electrophoresis Similar sx previously seen in pt w/ Lyme. Pt's negative Lyme screen does not fully r/o this possibility MRI flexion/extension 03/12 showed no high-grade central canal or foraminal narrowing; normal CSF flow - PT/OT consulted. Plan for skilled rehab upon discharge - 4 doses IVIG so far. Plan for total 5 doses total - Continue doxycycline 100mg bid. If no improvement by >7d tx, can discontinue. 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 Admission and Anticipated Discharge Date Admission Date: March 10, 2025 Supervising Physician Co-Signing Physician Notes I personally examined the patient and verified all lennon points of history and exam, discussed case, and agree with decision making with Dr Alatorre sensation about the same, motor still weak but a little better. was able to get OOB with assist to the bathroom. doesnt' really have full bladder/need to void sensation, but paying attention to time and voiding "on the clock" she has been able to maintain urinary continence and have control of bladder. Vitals noted, in general she is awake and alert pleasant no distress. HEENT normocephalic atraumatic mucous membranes moist. Breathing unlabored no accessory muscle use good effort. Still essentially absent lower extremity sensation to light touch vibration and pain, except for still does have mild sensation to the back of her right heel Lower extremity weakness No striking findings on extensive workup. Patient has been understandably ambivalent about whether or not she would want to undergo the risk of an LP, and at the same time, given that a Guillain-Hitchcock type variant would be our lead differential, we are treating with IVIG empirically. Today is day 5 out of 5. Given that with ongoing consideration, neurology does recall seeing a case of fulminant Lyme disease presenting similarly, we are discussing the risk/benefit of how to approach this furthergiven that we are in such an endemic area empiric treatment may end up being the best choice, after discussion she agreed - doxy started. is showing some improvement though! continue current care. rehab once able Subjective Patient seen and examined this morning. Was able to walk from bed to bathroom and then back to bedside chair. Says legs are still numb, and this amount of activity tired her out, but she feels good about this progress. Still having the same pain, well-controlled with current analgesics. Continuing on IVIG and doxy. Understanding and accepting of plan for 2 or 4 weeks of doxy, depending on response, and 5 total days IVIG and then skilled rehab. Placement has been complicated by issues with insurance coverage; CM is working on the issue. No PAUL, CP, SOB, or other new complaints. Review of Systems Review of Systems: reviewed, per HPI Physical Exam Physical Exam: Gen: NAD, WD/WN HEENT: NCAT, normal conjunctiva, anicteric sclera, MMM CV: RRR, no m/r/g, S1/S2 normal, no LE edema Resp: CTAB, symmetrical chest rise, breathing non-labored/no increased WOB Abd: Soft, NT/ND, +BS, no HSM Skin: Warm, dry, well-perfused, no rashes bruising or other lesions appreciated Neuro: AOx3, CN III-XII grossly intact, str 5/5 in both UE and 2/5 in both LE, able to wiggle toes and lift legs shows improvement from prior exams, SILT in b/l UE and R foot, otherwise negative in b/l LE Psych: Full, euthymic affect. Speech pace normal. Thoughts linear and goal- directed. Results & Data Results & Data Vital Signs (Past 12 Hours) Vital Signs Temp Pulse Resp BP Pulse Ox O2 Del Method 03/16/25 07:21 36.8 C 72 16 96/63 L 98 Room Air Resident Activity Tracking Resident Involvement: Resident Care Provided Care Provided: Adult Hospital Medicine
--- NOTE | 2025-03-16 15:46 | Billing Data ---
Date of Service March 16, 2025 Coding Level of Care Code 56136 SUB INP/OBS CARE
[2025-03-17 06:20] LABS: Hematocrit (blood only) 33.6 % (37.0-47.0); Hemoglobin 11.6 g/dl (12.0-16.0); Mean Corpuscular Hemoglobin 31.0 pg (25.0-34.0); Mean Corpuscular Volume 89.8 fL (80.0-100.0); Platelet Count 141 K/uL (130-400); RDW Standard Deviation 38.3 fL (36.4-46.3); Red Blood Count 3.74 M/uL (4.20-5.40); White Blood Count 3.23 K/ul (4.8-10.8)
[2025-03-17 06:33] LABS: Anion Gap 3.0 (3-11); Blood Urea Nitrogen 10.0 mg/dl (6-23); Calcium 8.5 mg/dl (8.6-10.3); Carbon Dioxide 27.0 mmol/L (21-32); Chloride 105.0 mmol/L (98-107); Creatinine Clr Calc Pharmacy 62.3 ml/min; Glucose 83.0 mg/dl (70-99(Fasting)); Potassium 3.9 mmol/L (3.5-5.1); Sodium 135.0 mmol/L (136-145)
--- NOTE | 2025-03-17 07:32 | Hospitalist Progress Note ---
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 Provided with 500 mL NSS, Zofran 4 mg IV, morphine 4 yuliana IV x 3, and lorazepam 1 mg IV in ED. Patient's insurance has . Attempting to re-instate. Pending rehab placement. 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 No history of such. No trauma. Does have history of Lyme disease, no recent tick bites that she is aware of, however she was not aware of a previous tick bite either and was diagnosed with Lyme. History not consistent with GBS; will consider other etiologies including conversion d/o, transverse myelitis UA negative for infection Tick panel negative, WILSON pending Lumbar spine MRI mild to lower lumbar discogenic degeneration Thoracic spine MRI negative Brain, cervical spine MRI negative - evidence of Chiari malformation and decompression re-demonstrated Fall precautions Heating pad if needed Acetaminophen or Morphine prn pain, zofran prn N/V Neurology consulted - appreciate assistance. Additional labs ordered: CK low at 17, ESR and CRP neg, serum immunoglobulins wnl, SPEP c/w non- selective protein loss, Serum free kappa 16.7 & free lambda 96 w/ K/L ratio slightly elevated at 1.74 HIV and RPR neg, B12 appropriate, aldolase 7.4, GREGORIA 29, serum copper 84, urine heavy metal screen neg WILSON titer 1:320 AC-2 (dense fine speckled) pattern Immunofixation inconclusive; may need repeat serum and/or urine immunofixation electrophoresis Similar sx previously seen in pt w/ Lyme. Pt's negative Lyme screen does not fully r/o this possibility MRI flexion/extension 03/12 showed no high-grade central canal or foraminal narrowing; normal CSF flow PT/OT consulted. Plan for skilled rehab upon discharge 5 doses of IVIG completed Continue doxycycline 100mg bid. If no improvement by >7d tx, can discontinue. 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 Admission and Anticipated Discharge Date Admission Date: March 10, 2025 Supervising Physician Co-Signing Physician Notes I personally examined the patient and verified all lennon points of history and exam, discussed case, and agree with decision making with Dr Golden Continues to do better overall and is moving better. Notes that unfortunate consequence of moving better is that she is getting more back and hip pain and that at times is intolerable and limiting her movement. She notes that his hip pain more in the buttock and the lateral posterior area in the low back pain is vague and mostly lumbosacral. Vitals noted, in general she is awake and alert pleasant no distress. HEENT normocephalic atraumatic mucous membranes moist. Breathing unlabored no accessory muscle use good effort. Skin without rashes pallor or icterus. Musculoskeletal/osteopathic structural exam shows left greater than right pelvic musculature in the region of piriformis to be high tone, tender, decreased range of motionLAS done, tissue texture improved, patient tolerated well. Later showed patient stretches for this region as well. Lower extremity weakness No striking findings on extensive workup. Patient has been understandably ambivalent about whether or not she would want to undergo the risk of an LP, and at the same time, given that a Guillain-Hitchcock type variant would be our lead differential, She was treated with 5 days of empiric IVIG. Given that with ongoing consideration, neurology does recall seeing a case of fulminant Lyme disease presenting similarly, we are also treating empirically with doxycycline given the endemic area in which we live. Improving. PT/OT eval and treat, anticipate rehab placement once this is possible back and hip pain/pelvic somatic dysfunctionseems to be predominantly piriformis mediated lumbosacral pain and musculoskeletal hip painOMT as above. Voltaren gel to her piriformis regions 4 times daily, magnesium IV to act as a muscle relaxant, Valium at bedtime. Otherwise as above, DVT prophylaxis with SCDs Subjective Patient seen and evaluated at bedside this morning. No acute events overnight. No acute complaints. States that she can feel her heel. Overall remains weak but has been OOB to bathroom with assistance. Continues to have LBP Review of Systems Review of Systems: reviewed, per HPI Physical Exam Physical Exam: Constitutional: well-appearing, no acute distress HEENT: NCAT, no conjunctival injection CV:extremities well-perfused, no LE edema Resp: no increased work of breathing GI: nondistended MSK: no gross deformities appreciated Skin: warm, dry, no rash appreciated Neuro: alert, oriented, without preserved strength in b/l LE Results & Data Results & Data Vital Signs (Past 12 Hours) Vital Signs Temp Pulse Resp BP Pulse Ox O2 Del Method 03/17/25 07:26 36.8 C 88 14 95/63 L 98 Room Air 03/16/25 20:00 36.7 C 94 H 14 99/64 L 98 Room Air Resident Activity Tracking Resident Involvement: Resident Care Provided Care Provided: Adult Hospital Medicine
[2025-03-17] MEDS: MAGNESIUM SULFATE / D5W 1 GM/100 ML BAG IV SCH (13:21)
[2025-03-17] MEDS: DICLOFENAC SOD 1% GEL 100 GM TUBE EXT SCH (13:25)
--- NOTE | 2025-03-17 16:58 | Billing Data ---
Date of Service March 17, 2025 Coding Level of Care Code 70411 SUB INP/OBS CARE MIN
[2025-03-18 07:41] LABS: Hematocrit (blood only) 33.4 % (37.0-47.0); Hemoglobin 11.2 g/dl (12.0-16.0); Mean Corpuscular Hemoglobin 30.5 pg (25.0-34.0); Mean Corpuscular Volume 91.0 fL (80.0-100.0); Platelet Count 124 K/uL (130-400); RDW Standard Deviation 38.4 fL (36.4-46.3); Red Blood Count 3.67 M/uL (4.20-5.40); White Blood Count 3.30 K/ul (4.8-10.8)
--- NOTE | 2025-03-18 07:43 | Hospitalist Progress Note ---
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 Provided with 500 mL NSS, Zofran 4 mg IV, morphine 4 yuliana IV x 3, and lorazepam 1 mg IV in ED. Patient's insurance has . Attempting to re-instate. Pending rehab placement. 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 No history of such. No trauma. Does have history of Lyme diseas e, no recent tick bites that she is aware of, however she was not aware of a previous tick bite either and was diagnosed with Lyme. History not consistent with GBS; will consider other etiologies including conversion d/o, transverse myelitis UA negative for infection Tick panel negative, WILSON pending Lumbar spine MRI mild to lower lumbar discogenic degeneration Thoracic spine MRI negative Brain, cervical spine MRI negative - evidence of Chiari malformation and decompression re-demonstrated Fall precautions Heating pad if needed Acetaminophen or Morphine prn pain, zofran prn N/V Neurology consulted - appreciate assistance. Additional labs ordered: CK low at 17, ESR and CRP neg, serum immunoglobulins wnl, SPEP c/w non- selective protein loss, Serum free kappa 16.7 & free lambda 96 w/ K/L ratio slightly elevated at 1.74 HIV and RPR neg, B12 appropriate, aldolase 7.4, GREGORIA 29, serum copper 84, urine heavy metal screen neg WILSON titer 1:320 AC-2 (dense fine speckled) pattern Immunofixation inconclusive; may need repeat serum and/or urine immunofixation electrophoresis Similar sx previously seen in pt w/ Lyme. Pt's negative Lyme screen does not fully r/o this possibility MRI flexion/extension 6/30 showed no high-grade central canal or foraminal narrowing; normal CSF flow PT/OT consulted. Plan for skilled rehab upon discharge 5 doses of IVIG completed Continue doxycycline 100mg bid. If no improvement by >7d tx, can discontinue. 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 Admission and Anticipated Discharge Date Admission Date: March 10, 2025 Supervising Physician Co-Signing Physician Notes I personally examined the patient and verified all lennon points of history and e xam, discussed case, and agree with decision making with Dr Golden continues to walk and move better. Still very weak but able to get around far better than a few days ago. Back pain about the samemag may be helped a little, still a fairly big problem, morphine seems to help the most at the present. present at the bedsidedemonstrated stretches to him. Vitals noted, in general she is awake and alert pleasant no distress. HEENT normocephalic atraumatic mucous membranes moist. Breathing unlabored no accessory muscle use good effort. Skin without rashes pallor or icterus. Musc uloskeletal/osteopathic structural exam shows left greater than right pelvic musculature in the region of piriformis to be high tone, tender, decreased range of motion Post isometric relaxation muscle energy done as best as her weakened motor function could tolerate, but to be able to demonstrate to her and her how to continue to stretch things. Lower extremity weakness No striking findings on extensive workup. Patient has been understandably ambivalent about whether or not she would want to undergo the risk of an LP, and at the same time, given that a Guillain-Hitchcock type variant would be our lead differential, She was treated with 5 days of empiric IVIG. Given that with ongoing consideration, neurology does recall seeing a case of fulminant Lyme disease presenting similarly, we are also treating empirically with doxycycline given the endemic area in which we live. Improving. PT/OT eval and treat, anticipate rehab placement once this is possible (Waiting for insurance to be reinstated) back and hip pain/pelvic somatic dysfunctionseems to be predominantly piriformis mediated lumbosacral pain and musculoskeletal hip painOMT as above. Voltaren gel to her piriformis regions 4 times daily, Valium at bedtime. Tylenol [id number]. Morphine as needed for now. Otherwise as above, DVT prophylaxis with SCDs Subjective Patient seen and evaluated at bedside this morning. No acute events overnight. Has been up OOB to bathroom. Pain stable to improved. Review of Systems Review of Systems: reviewed, per HPI Physical Exam Physical Exam: Constitutional: well-appearing, no acute distress HEENT: NCAT, no conjunctival injection CV:extremities well-perfused, no LE edema Resp: no increased work of breathing GI: nondistended MSK: no gross deformities appreciated Skin: warm, dry, no rash appreciated Neuro: alert, oriented, without preserved strength in b/l LE Resident Activity Tracking Resident Involvement: Resident Care Provided Care Provided: Adult Hospital Medicine
[2025-03-18 07:58] LABS: Anion Gap 2.0 (3-11); Blood Urea Nitrogen 7.0 mg/dl (6-23); Calcium 8.3 mg/dl (8.6-10.3); Carbon Dioxide 28.0 mmol/L (21-32); Chloride 107.0 mmol/L (98-107); Creatinine Clr Calc Pharmacy 61.7 ml/min; Glucose 82.0 mg/dl (70-99(Fasting)); Potassium 3.8 mmol/L (3.5-5.1); Sodium 137.0 mmol/L (136-145)
[2025-03-18] MEDS: ACETAMINOPHEN 325 MG TAB PO SCH (09:15)
--- NOTE | 2025-03-18 18:12 | Billing Data ---
Date of Service March 18, 2025 Coding Level of Care Code 95909 SUB INP/OBS CARE MIN
--- NOTE | 2025-03-19 07:44 | Hospitalist Progress Note ---
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 Lumbar spine MRI mild mid to lower lumbar discogenic degeneration, no significant central canal or foraminal narrowing, no abnormal enhancement. 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 No history of such. No trauma. Does have history of Lyme disease, no recent tick bites that she is aware of, however she was not aware of a previous tick bite either and was diagnosed with Lyme. History not consistent with GBS; will consider other etiologies including conversion d/o, transverse myelitis Tick panel negative, WILSON pending Lumbar spine MRI mild to lower lumbar discogenic degeneration, Thoracic spine MRI negative Brain, cervical spine MRI negative - evidence of Chiari malformation and decompression re-demonstrated Continue fall precautions Pain control with scheduled Acetaminophen 650mg TID and Morphine prn, Heating pad if needed Plan to transition to PO pain meds starting 03/20 with 25mg total Neurology consulted - appreciate assistance. Additional labs ordered: CK low at 17, ESR and CRP neg, serum immunoglobulins wnl, SPEP c/w non- selective protein loss, Serum free kappa 16.7 & free lambda 96 w/ K/L ratio slightly elevated at 1.74 HIV and RPR neg, B12 appropriate, aldolase 7.4, GREGORIA 29, serum copper 84, urine heavy metal screen neg WILSON titer 1:320 AC-2 (dense fine speckled) pattern Immunofixation inconclusive; may need repeat serum and/or urine immuno fixation electrophoresis Similar sx previously seen in pt w/ Lyme. Pt's negative Lyme screen does not fully r/o this possibility 5 doses of IVIG completed PT/OT consulted. Recommending rehab upon discharge Patient's insurance has . Attempting to re-instate. Pending rehab placement. Continue doxycycline 100mg bid. If no improvement by >7d tx, can discontinue. 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 Admission and Anticipated Discharge Date Admission Date: March 10, 2025 Supervising Physician Co-Signing Physician Notes Attending attestation Pt seen and examined in concert with Dr. Mensah. In agreement with the documented findings as noted in the resident documentation with any exceptions or additions as noted here. Resting in bed at time of examination with pain well controlled on IV morphine PRN. VS as noted, on examination, S1/S2 nl RRR no MCG. CTAB. Abd NT/ND BS+ve Intractable back pain - transition to PO regimen for pain control and adjust for comfort as needed to support transition to rehab outpatient. PT/OT consult appreciated. Else see resident documentation as noted. Subjective Pt reports she continues with back pain, worst is 8/10. Pt notes slight improvement if LE strength and movement. Sensation is unchanged. Pt is walking to/from bathroom with FWW, urinary incontinence has resolved. Pt denies CP, SOB, N/V/D/C, dizziness or headache. Review of Systems Review of Systems: reviewed, per HPI Physical Exam Physical Exam: Constitutional: well-appearing, no acute distress HEENT: NCAT, no conjunctival injection CV:extremities well-perfused, no LE edema Resp: no increased work of breathing, CTAB GI: nondistended MSK: no gross deformities appreciated, General weakness at bilateral LEs, but grossly 2+ to 3/5 Skin: warm, dry, no rash appreciated Neuro: alert, oriented, without preserved strength in b/l LE Results & Data Results & Data Vital Signs (Past 12 Hours) Vital Signs Temp Pulse Resp BP Pulse Ox O2 Del Method 03/19/25 07:30 36.7 C 75 14 91/61 L 99 Room Air 03/18/25 19:55 36.6 C 91 H 14 102/68 99 Room Air Resident Activity Tracking Resident Involvement: Resident Care Provided Care Provided: Adult Hospital Medicine
[2025-03-19 08:14] LABS: Hematocrit (blood only) 34.0 % (37.0-47.0); Hemoglobin 11.6 g/dl (12.0-16.0); Mean Corpuscular Hemoglobin 30.9 pg (25.0-34.0); Mean Corpuscular Volume 90.4 fL (80.0-100.0); Platelet Count 130 K/uL (130-400); RDW Standard Deviation 38.6 fL (36.4-46.3); Red Blood Count 3.76 M/uL (4.20-5.40); White Blood Count 2.67 K/ul (4.8-10.8)
[2025-03-19 08:30] LABS: Anion Gap 1.0 (3-11); Blood Urea Nitrogen 10.0 mg/dl (6-23); Calcium 8.6 mg/dl (8.6-10.3); Carbon Dioxide 29.0 mmol/L (21-32); Chloride 108.0 mmol/L (98-107); Creatinine Clr Calc Pharmacy 68.9 ml/min; Glucose 81.0 mg/dl (70-99(Fasting)); Potassium 3.7 mmol/L (3.5-5.1); Sodium 138.0 mmol/L (136-145)
--- NOTE | 2025-03-20 07:18 | Hospitalist Progress Note ---
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 Lumbar spine MRI mild mid to lower lumbar discogenic degeneration, no significant central canal or foraminal narrowing, no abnormal enhancement. 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 No history of such. No trauma. Does have history of Lyme disease, no recent tick bites that she is aware of, however she was not aware of a previous tick bite either and was diagnosed with Lyme. History not consistent with GBS; will consider other etiologies including conversion d/o, transverse myelitis Tick panel negative, WILSON pending Lumbar spine MRI mild to lower lumbar discogenic degeneration, Thoracic spine MRI negative Brain, cervical spine MRI negative - evidence of Chiari malformation and decompression re-demonstrated Continue fall precautions Pain control with scheduled Acetaminophen 650mg TID Added Oxycodone 2.5 mg q4h prn for pain 4-8/10 and and IV Morphine 2mg prn for pain >8 Heating pad if needed Neurology consulted - appreciate assistance. Additional labs ordered: CK low at 17, ESR and CRP neg, serum immunoglobulins wnl, SPEP c/w non- selective protein loss, Serum free kappa 16.7 & free lambda 96 w/ K/L ratio slightly elevated at 1.74 HIV and RPR neg, B12 appropriate, aldolase 7.4, GREGORIA 29, serum copper 84, urine heavy metal screen neg WILSON titer 1:320 AC-2 (dense fine speckled) pattern Immunofixation inconclusive; may need repeat serum and/or urine i mmunofixation electrophoresis Similar sx previously seen in pt w/ Lyme. Pt's negative Lyme screen does not fully r/o this possibility 5 doses of IVIG completed PT/OT following Recommending rehab upon discharge Patient's insurance has . Attempting to re-instate. Pending rehab placement. Continue doxycycline 100mg bid. If no improvement by >7d tx, can discontinue. 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 Admission and Anticipated Discharge Date Admission Date: March 10, 2025 Supervising Physician Co-Signing Physician Notes Attending attestation Pt seen and examined in concert with Dr. Mensah. In agreement with the documented findings as noted in the resident documentation with any exceptions or additions as noted here. Resting in bed at time of examination with pain well controlled on IV morphine PRN. VS as noted, on examination, S1/S2 nl RRR no MCG. CTAB. Abd NT/ND BS+ve Intractable back pain - encourage use of PO regimen for pain control with addition of PRN morphine for breakthrough. PT/OT consult appreciated. Else see resident documentation as noted. Subjective Pt reports she continues with back pain ranging from 4-8/10, Pt states it is worst after participation with PT and at best with resting in chair or bed. Pt states no new progress with LE strength or sensation Pt denies CP, SOB, N/V/D/C, dizziness or headache. Review of Systems Review of Systems: reviewed, per HPI Physical Exam Physical Exam: Constitutional: well-appearing, no acute distress HEENT: NCAT, no conjunctival injection CV:extremities well-perfused, no LE edema Resp: no increased work of breathing, CTAB GI: nondistended, soft and non tender. Normoactive BS MSK: no gross deformities appreciated, General weakness at bilateral LEs, but grossly 2+ to 3/5 Skin: warm, dry, no rash appreciated Neuro: alert, oriented, without preserved strength in b/l LE Results & Data Results & Data Vital Signs (Past 12 Hours) Vital Signs Temp Pulse Resp BP Pulse Ox Pulse Ox O2 Del Method 03/19/25 20:56 97 03/19/25 19:39 36.8 C 79 14 93/60 L 97 Room Air O2 Del Method 03/19/25 20:56 Room Air 03/19/25 19:39 Resident Activity Tracking Resident Involvement: Resident Care Provided Care Provided: Adult Hospital Medicine
[2025-03-20 07:43] LABS: Hematocrit (blood only) 34.2 % (37.0-47.0); Hemoglobin 11.7 g/dl (12.0-16.0); Mean Corpuscular Hemoglobin 30.5 pg (25.0-34.0); Mean Corpuscular Volume 89.3 fL (80.0-100.0); Platelet Count 128 K/uL (130-400); RDW Standard Deviation 37.5 fL (36.4-46.3); Red Blood Count 3.83 M/uL (4.20-5.40); White Blood Count 4.84 K/ul (4.8-10.8)
[2025-03-20 07:58] LABS: Anion Gap 2.0 (3-11); Blood Urea Nitrogen 14.0 mg/dl (6-23); Calcium 8.6 mg/dl (8.6-10.3); Carbon Dioxide 25.0 mmol/L (21-32); Chloride 111.0 mmol/L (98-107); Creatinine Clr Calc Pharmacy 59.4 ml/min; Glucose 83.0 mg/dl (70-99(Fasting)); Potassium 3.9 mmol/L (3.5-5.1); Sodium 138.0 mmol/L (136-145)
[2025-03-20] MEDS: MoRPHine SULFATE 4 MG/ML 1 ML CARP\\VIAL IV PRN (13:25)
--- NOTE | 2025-03-21 07:33 | Hospitalist Progress Note ---
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 Lumbar spine MRI mild mid to lower lumbar discogenic degeneration, no significant central canal or foraminal narrowing, no abnormal enhancement. 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 No history of such. No trauma. Does have history of Lyme disease, no recent tick bites that she is aware of, however she was not aware of a previous tick bite either and was diagnosed with Lyme. History not consistent with GBS; will consider other etiologies including conversion d/o, transverse myelitis Tick panel negative, WILSON pending Lumbar spine MRI mild to lower lumbar discogenic degeneration, Thoracic spine MRI negative Brain, cervical spine MRI negative - evidence of Chiari malformation and decompression re-demonstrated Continue fall precautions Pain control with scheduled Acetaminophen 650mg TID Increased PO Oxycodone to 5 mg q6h prn for pain 4-8/10 and and IV Morphine 2mg prn for pain >8 Heating pad if needed Neurology consulted - appreciate assistance. Additional labs ordered: CK low at 17, ESR and CRP neg, serum immunoglobulins wnl, SPEP c/w non- selective protein loss, Serum free kappa 16.7 & free lambda 96 w/ K/L ratio slightly elevated at 1.74 HIV and RPR neg, B12 appropriate, aldolase 7.4, GREGORIA 29, serum copper 84, urine heavy metal screen neg WILSON titer 1:320 AC-2 (dense fine speckled) pattern Immunofixation inconclusive; may need repeat serum and/or urine immunofixation electrophoresis Similar sx previously seen in pt w/ Lyme. Pt's negative Lyme screen does not fully r/o this possibility 5 doses of IVIG completed PT/OT following Recommending rehab upon discharge Patient's insurance has . Attempting to re-instate. Pending rehab placement. Continue doxycycline 100mg bid. If no improvement by >7d tx, can discontinue. 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 Admission and Anticipated Discharge Date Admission Date: March 10, 2025 Supervising Physician Co-Signing Physician Notes Attending attestation Pt seen and examined in concert with Dr. Mensah. In agreement with the documented findings as noted in the resident documentation with any exceptions or additions as noted here. Resting in bed at time of examination with pain well controlled on PO oxycodone w/ IV morphine PRN. VS as noted, on examination, S1/S2 nl RRR no MCG. CTAB. Abd NT/ND BS+ve Intractable back pain - encourage use of PO regimen for pain control with PRN morphine for breakthrough. PT/OT consult appreciated. Else see resident documentation as noted. Subjective Pt reports oral pain medication was not working to control her pain. She was having to ask for IV morphine to reduce her symptoms after getting up to walk or work with therapy. Pt states no new progress with LE strength or sensation Pt denies CP, SOB, N/V/D/C, dizziness or headache. Review of Systems Review of Systems: reviewed, per HPI Physical Exam Physical Exam: Constitutional: well-appearing, no acute distress HEENT: NCAT, no conjunctival injection CV:extremities well-perfused, no LE edema Resp: no increased work of breathing, CTAB GI: nondistended, soft and non tender. Normoactive BS MSK: no gross deformities appreciated, General weakness at bilateral LEs, but grossly 2+ to 3/5 Skin: warm, dry, no rash appreciated Neuro: alert, oriented, without preserved strength in b/l LE Results & Data Results & Data Vital Signs (Past 12 Hours) Vital Signs Temp Pulse Resp BP Pulse Ox Pulse Ox O2 Del Method 03/21/25 07:18 36.8 C 69 16 103/69 99 Room Air 03/21/25 02:00 94 03/20/25 20:31 36.9 C 98 H 14 98/64 L 95 Room Air O2 Del Method 03/21/25 07:18 03/21/25 02:00 Room Air 03/20/25 20:31 Resident Activity Tracking Resident Involvement: Resident Care Provided Care Provided: Adult Hospital Medicine
[2025-03-21] MEDS: ACETAMINOPHEN 500 MG TAB PO SCH (13:25)
--- NOTE | 2025-03-22 07:15 | Hospitalist Progress Note ---
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 Lumbar spine MRI mild mid to lower lumbar discogenic degeneration, no significant central canal or foraminal narrowing, no abnormal enhancement. 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 No history of such. No trauma. Does have history of Lyme disease, no recent tick bites that she is aware of, however she was not aware of a previous tick bite either and was diagnosed with Lyme. History not consistent with GBS; will consider other etiologies including conversion d/o, transverse myelitis Tick panel negative Lumbar spine MRI mild to lower lumbar discogenic degeneration, Thoracic spine MRI negative Brain, cervical spine MRI negative - evidence of Chiari malformation and decompression re-demonstrated 5 doses of IVIG completed -Continue fall precautions -Continue pain control with scheduled Acetaminophen 650mg TID -Increased PO Oxycodone to 10 mg q8h prn for pain 4-8/10 and and IV Morphine 2mg prn for pain >8 -Heating pad if needed -Continue Voltaren prn for piriformis pain -Neurology consulted - appreciate assistance. Additional labs ordered: CK low at 17, ESR and CRP neg, serum immunoglobulins wnl, SPEP c/w non- selective protein loss, Serum free kappa 16.7 & free lambda 96 w/ K/L ratio slightly elevated at 1.74 HIV and RPR neg, B12 appropriate, aldolase 7.4, GREGORIA 29, serum copper 84, urine heavy metal screen neg WILSON titer 1:320 AC-2 (dense fine speckled) pattern Immunofixation inconclusive; may need repeat serum and/or urine immunofixation electrophoresis Similar sx previously seen in pt w/ Lyme. Pt's negative Lyme screen does not fully r/o this possibility -PT/OT following Recommending rehab upon discharge Patient's insurance has . Attempting to re-instate. Pending rehab placement. -Continue doxycycline 100mg bid- will end on 03/25 #Psych- Buspirone, duloxetine, escitalopram, hydroxyzine, topiramate - continue #GERD- Pantoprazole - continue Dispo: continued inpatient med/surg stay VTE Prophylaxis: SCDs. Admission and Anticipated Discharge Date Admission Date: March 10, 2025 Supervising Physician Co-Signing Physician Notes Attending attestation Pt seen and examined in concert with Dr. Mensah. In agreement with the documented findings as noted in the resident documentation with any exceptions or additions as noted here. Resting in bed at time of examination with pain controlled on PO oxycodone w/ IV morphine PRN. VS as noted, on examination, S1/S2 nl RRR no MCG. CTAB. Abd NT/ND BS+ve Intractable back pain - escalated pain control to 10mg oxycodone q8h with PRN morphine for breakthrough. PT/OT consult appreciated. Else see resident documentation as noted. Subjective Pt reports yesterdays increase of strength of oxycodone, is still not sufficient to controlling her low back and hip pain. Pt states in the past she has used oxycodone 10mg, which seemed to be helpful. Pt states she continues working with therapy and is noticing small improvements in LE strength and motion. Pt denies CP, SOB, N/V/D/C, dizziness or headache. Review of Systems Review of Systems: reviewed, per HPI Physical Exam Physical Exam: Constitutional: well-appearing, no acute distress HEENT: NCAT, no conjunctival injection CV:extremities well-perfused, no LE edema Resp: no increased work of breathing, CTAB GI: nondistended, soft and non tender. Normoactive BS MSK: no gross deformities appreciated, General weakness at bilateral LEs, but grossly 2+ to 3/5. Better ability to flex at knees vs gravity as well as ab/adduct hips in gravity assisted position. Skin: warm, dry, no rash appreciated Neuro: alert, oriented, without preserved strength in b/l LE Results & Data Results & Data Vital Signs (Past 12 Hours) Vital Signs Temp Pulse Resp BP Pulse Ox Pulse Ox O2 Del Method 03/21/25 20:34 94 03/21/25 20:27 36.8 C 75 14 97/64 L 98 Room Air O2 Del Method 03/21/25 20:34 Room Air 03/21/25 20:27 Resident Activity Tracking Resident Involvement: Resident Care Provided Care Provided: Adult [facility] Medicine
[2025-03-22 08:23] LABS: Hematocrit (blood only) 37.6 % (37.0-47.0); Hemoglobin 12.6 g/dl (12.0-16.0); Mean Corpuscular Hemoglobin 30.4 pg (25.0-34.0); Mean Corpuscular Volume 90.6 fL (80.0-100.0); Platelet Count 139 K/uL (130-400); RDW Standard Deviation 38.5 fL (36.4-46.3); Red Blood Count 4.15 M/uL (4.20-5.40); White Blood Count 3.15 K/ul (4.8-10.8)
[2025-03-22 08:49] LABS: Anion Gap 2.0 (3-11); Blood Urea Nitrogen 17.0 mg/dl (6-23); Calcium 8.7 mg/dl (8.6-10.3); Carbon Dioxide 25.0 mmol/L (21-32); Chloride 111.0 mmol/L (98-107); Creatinine Clr Calc Pharmacy 60.6 ml/min; Glucose 69.0 mg/dl (70-99(Fasting)); Potassium 4.1 mmol/L (3.5-5.1); Sodium 138.0 mmol/L (136-145)
[2025-03-23] MEDS: MoRPHine SULFATE 2 MG/ML CARP IV STA (02:51)
--- NOTE | 2025-03-23 07:30 | Hospitalist Progress Note ---
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 Lumbar spine MRI mild mid to lower lumbar discogenic degeneration, no significant central canal or foraminal narrowing, no abnormal enhancement. 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 No history of such. No trauma. Does have history of Lyme disease, no recent tick bites that she is aware of, however she was not aware of a previous tick bite either and was diagnosed with Lyme. History not consistent with GBS; will consider other etiologies including conversion d/o, transverse myelitis Tick panel negative Lumbar spine MRI mild to lower lumbar discogenic degeneration, Thoracic spine MRI negative Brain, cervical spine MRI negative - evidence of Chiari malformation and decompression re-demonstrated 5 doses of IVIG completed -Continue fall precautions -Continue pain control with scheduled Acetaminophen 650mg TID -Continue PO Oxycodone to 10 mg q8h prn for pain 4-04/22, but starting with IV Morphine 2mg prn this morning -Heating pad if needed -Continue Voltaren prn for piriformis pain -Neurology consulted - appreciate assistance. Additional labs ordered: CK low at 17, ESR and CRP neg, serum immunoglobulins wnl, SPEP c/w non- selective protein loss, Serum free kappa 16.7 & free lambda 96 w/ K/L ratio slightly elevated at 1.74 HIV and RPR neg, B12 appropriate, aldolase 7.4, GREGORIA 29, serum copper 84, urine heavy metal screen neg WILSON titer 1:320 AC-2 (dense fine speckled) pattern Immunofixation inconclusive; may need repeat serum and/or urine immunofixation electrophoresis Similar sx previously seen in pt w/ Lyme. Pt's negative Lyme screen does not fully r/o this possibility -PT/OT following Recommending rehab upon discharge Patient's insurance has . Attempting to re-instate. Pending rehab placement. -Continue doxycycline 100mg bid- will end on 03/25 #Psych- Buspirone, duloxetine, escitalopram, hydroxyzine, topiramate - continue #GERD- Pantoprazole - continue Dispo: continued inpatient med/surg stay VTE Prophylaxis: SCDs. Admission and Anticipated Discharge Date Admission Date: March 10, 2025 Supervising Physician Co-Signing Physician Notes ATTESTATION I also saw the patient and confirmed lennon portions of the history and exam. I agree with the impression and plan in the resident documentation, and as summarized below. Patient with increased pain this morning - her IV morphine for breakthrough hit an automatic stop late last night. EXAM VS as noted Alert and oriented. She looks to me in moderate discomfort at current. CV RRR Lungs clear with non labored respirations. DATA Labs No new labs today IMPRESSION & PLAN Intractable back pain Bilateral leg weakness Add morphine 2mg IV q 4 for breakthru Continue oxycodone 10 mg IV q 8 Continue PT/OT Will need rehab placement once insurance issues resolved Additional per resident documentation Subjective Pt reports she continues behind on pain control using oral pain meds and continues to require IV morphine. Pt is willing to continue at 10mg oxycodone but will attempt changes in schedule meds and timing. No updates regarding insurance coverage or Rehab placement per pt. Pt denies CP, SOB, N/V/D/C, dizziness or headache. Review of Systems Review of Systems: reviewed, per HPI Physical Exam Physical Exam: Constitutional: well-appearing, no acute distress HEENT: NCAT, no conjunctival injection CV:extremities well-perfused, no LE edema Resp: no increased work of breathing, CTAB GI: nondistended, soft and non tender. Normoactive BS MSK: no gross deformities appreciated, General weakness at bilateral LEs, but grossly 3/5. Skin: warm, dry, no rash appreciated Neuro: alert, oriented, without preserved strength in b/l LE Results & Data Results & Data Vital Signs (Past 12 Hours) Vital Signs Temp Pulse Resp BP Pulse Ox O2 Del Method 03/23/25 07:28 37.1 C 70 16 91/56 L 97 Room Air Resident Activity Tracking Resident Involvement: Resident Care Provided Care Provided: Adult [facility] Medicine
[2025-03-23] MEDS: MoRPHine SULFATE 2 MG/ML CARP IV PRN (08:51)
--- NOTE | 2025-03-24 07:23 | Hospitalist Progress Note ---
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 Lumbar spine MRI mild mid to lower lumbar discogenic degeneration, no significant central canal or foraminal narrowing, no abnormal enhancement. 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 No history of such. No trauma. Does have history of Lyme disease, no recent tick bites that she is aware of, however she was not aware of a previous tick bite either and was diagnosed with Lyme. 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 Tick panel negative Lumbar spine MRI mild to lower lumbar discogenic degeneration, Thoracic spine MRI negative Brain, cervical spine MRI negative - evidence of Chiari malformation and decompression re-demonstrated 5 doses of IVIG completed -Continue fall precautions -Continue PO Oxycodone to 10 mg q8h prn for pain -04/22 -Continue IV Morphine 2mg prn this morning -Continue pain control with scheduled Acetaminophen 650mg TID, encourgaed pt to use between oxycodone dose for breakthrough pain vs asking for Morphine -Heating pad if needed -Continue Voltaren prn for piriformis pain -Neurology consulted - appreciate assistance. Additional labs ordered: CK low at 17, ESR and CRP neg, serum immunoglobulins wnl, SPEP c/w non- selective protein loss, Serum free kappa 16.7 & free lambda 96 w/ K/L ratio slightly elevated at 1.74 HIV and RPR neg, B12 appropriate, aldolase 7.4, GREGORIA 29, serum copper 84, urine heavy metal screen neg WILSON titer 1:320 AC-2 (dense fine speckled) pattern Immunofixation inconclusive; may need repeat serum and/or urine immunofixation electrophoresis Similar sx previously seen in pt w/ Lyme. Pt's negative Lyme screen does not fully r/o this possibility -PT/OT following Recommending rehab upon discharge Patient's insurance has . Attempting to re-instate. Pending rehab placement. -Continue doxycycline 100mg bid- will end on 03/25 #Psych- Buspirone, duloxetine, escitalopram, hydroxyzine, topiramate - continue #GERD- Pantoprazole - continue Dispo: continued inpatient med/surg stay VTE Prophylaxis: SCDs. Admission and Anticipated Discharge Date Admission Date: March 10, 2025 Supervising Physician Co-Signing Physician Notes ATTESTATION I also saw the patient and confirmed lennon portions of the history and exam. I agree with the impression and plan in the resident documentation, and as summarized below. Pain control seems to be better today as compared to yesterday. Still requiring PRN morphine however. EXAM VS as noted Alert and oriented. CV RRR Lungs clear with non labored respirations. DATA Labs No new labs today IMPRESSION & PLAN Intractable back pain Bilateral leg weakness Continue current pain regimen Continue oxycodone 10 mg IV q 8 with morphine for breakthru Emphasize non-narcotic medications as well Continue PT/OT Rehab placement once insurance issues resolved Additional per resident documentation Subjective Pt reports she continues to require IV morphine for breakthrough pain. Walking t o/from bathroom and working with therapy causes the most discomfort. No updates regarding insurance coverage or Rehab placement per pt. Pt denies CP, SOB, V/D/C, dizziness or headache. Endorses mild nausea this morning but still has appetite Review of Systems Review of Systems: reviewed, per HPI Physical Exam Physical Exam: Constitutional: well-appearing, no acute distress HEENT: NCAT, no conjunctival injection CV:extremities well-perfused, no LE edema Resp: no increased work of breathing, CTAB GI: nondistended, soft and non tender. Normoactive BS MSK: no gross deformities appreciated, General weakness at bilateral LEs, no significant change since yesterday Skin: warm, dry, no rash appreciated Neuro: alert, oriented, without preserved strength in b/l LE Results & Data Results & Data Vital Signs (Past 12 Hours) Vital Signs Temp Pulse Resp BP Pulse Ox O2 Del Method 03/24/25 07:07 36.7 C 75 16 94/64 L 98 Room Air 03/23/25 19:30 36.6 C 69 16 109/71 99 Room Air Resident Activity Tracking Resident Involvement: Resident Care Provided Care Provided: Adult Hospital Medicine
[2025-03-24] MEDS: ENOXAPARIN INJ 40 MG/0.4 ML SYR SQ SCH (08:05)
--- NOTE | 2025-03-25 07:11 | Hospitalist Progress Note ---
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 Lumbar spine MRI mild mid to lower lumbar discogenic degeneration, no significant central canal or foraminal narrowing, no abnormal enhancement. 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 No history of such. No trauma. Does have history of Lyme disease, no recent tick bites that she is aware of, however she was not aware of a previous tick bite either and was diagnosed with Lyme. 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 Tick panel negative Lumbar spine MRI mild to lower lumbar discogenic degeneration, Thoracic spine MRI negative Brain, cervical spine MRI negative - evidence of Chiari malformation and decompression re-demonstrated 5 doses of IVIG completed - Continue fall precautions - Scheduled PO Oxycodone to 10 mg q8h - Changed Acetaminophen 1000mg prn q8h and advised pt use between oxycodone doses and/or 30-45 minutes prior to exercise/therapy sessions for breakthrough pain vs asking for Morphine - Continue IV Morphine 2mg prn - Heating pad if needed - Continue Voltaren prn for piriformis pain - Neurology consulted - appreciate assistance. Additional labs ordered: CK low at 17, ESR and CRP neg, serum immunoglobulins wnl, SPEP c/w non- selective protein loss, Serum free kappa 16.7 & free lambda 96 w/ K/L ratio slightly elevated at 1.74 HIV and RPR neg, B12 appropriate, aldolase 7.4, GREGORIA 29, serum copper 84, urine heavy metal screen neg WILSON titer 1:320 AC-2 (dense fine speckled) pattern Immunofixation inconclusive; may need repeat serum and/or urine immunofixation electrophoresis Similar sx previously seen in pt w/ Lyme. Pt's negative Lyme screen does not fully r/o this possibility -PT/OT following Recommending rehab upon discharge Patient's insurance has . Attempting to re-instate. Pending rehab placement. -Continue doxycycline 100mg bid- Last dose tonight #Psych- Buspirone, duloxetine, escitalopram, hydroxyzine, topiramate - continue #GERD- Pantoprazole - continue Dispo: continued inpatient med/surg stay VTE Prophylaxis: Lovenox 40mg Admission and Anticipated Discharge Date Admission Date: March 10, 2025 Supervising Physician Co-Signing Physician Notes ATTESTATION I also saw the patient and confirmed lennon portions of the history and exam. I agree with the impression and plan in the resident documentation, and as summarized below. No complaints at present. EXAM 95/60, 70, 16 Alert and oriented. CV RRR Lungs clear with non labored respirations. DATA Labs No new labs today IMPRESSION & PLAN Intractable back pain Bilateral leg weakness Continue current pain regimen Continue oxycodone 10 mg IV q 8 but will schedule in effort to decrease need for breakthru IV morphine Emphasize non-narcotic medications as well Continue PT/OT Rehab placement once insurance issues resolved Additional per resident documentation Subjective Pt reports she continues to require IV morphine for breakthrough pain. Walking to/from bathroom and exercise increases her pain. Pt states she was not able to get through her exercises with her yesterday due to pain. No updates regarding insurance coverage or Rehab placement per pt. Pt denies CP, SOB, N/V/D/C, dizziness or headache. Review of Systems Review of Systems: reviewed, per HPI Physical Exam Physical Exam: Constitutional: well-appearing, no acute distress HEENT: NCAT, no conjunctival injection CV:extremities well-perfused, no LE edema Resp: no increased work of breathing, CTAB GI: nondistended, soft and non tender. Normoactive BS MSK: no gross deformities appreciated, General weakness at bilateral LEs, no significant change since last exam Skin: warm, dry, no rash appreciated Neuro: alert, oriented, without preserved strength in b/l LE Results & Data Results & Data Vital Signs (Past 12 Hours) Vital Signs Temp Pulse Resp BP Pulse Ox O2 Del Method 03/25/25 07:07 36.7 C 70 16 95/60 L 98 Room Air 03/24/25 19:50 36.4 C L 64 16 104/71 98 Room Air Resident Activity Tracking Resident Involvement: Resident Care Provided Care Provided: Adult Hospital Medicine
[2025-03-26] MEDS: ACETAMINOPHEN 500 MG TAB PO PRN (00:28)
--- NOTE | 2025-03-26 18:21 | Hospitalist Progress Note ---
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 Lumbar spine MRI mild mid to lower lumbar discogenic degeneration, no significant central canal or foraminal narrowing, no abnormal enhancement. 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 No history of such. No trauma. Does have history of Lyme disease, no recent tick bites that she is aware of, however she was not aware of a previous tick bite either and was diagnosed with Lyme. 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 - Tick panel negative - Lumbar spine MRI mild to lower lumbar discogenic degeneration, Thoracic spine MRI negative - Brain, cervical spine MRI negative - evidence of Chiari malformation and decompression re-demonstrated - Completed 5 doses of IVIG and 10 day course of doxycycline 100 mg BID - Continue fall precautions - Continue scheduled PO Oxycodone to 10 mg q8h - Continue acetaminophen 1000mg prn q8h and advised pt use between oxycodone doses and/or 30-45 minutes prior to exercise/therapy sessions for breakthrough pain vs asking for Morphine - Continue IV Morphine 2mg prn - encouraged to limit this use is much as possible - Heating pad as needed - Continue Voltaren prn for piriformis pain - Neurology consulted - appreciate assistance. Additional labs ordered: - CK low at 17, ESR and CRP neg, serum immunoglobulins wnl, SPEP c/w non- selective protein loss - Serum free kappa 16.7 & free lambda 96 w/ K/L ratio slightly elevated at 1.74 - HIV and RPR neg, B12 appropriate, aldolase 7.4, GREGORIA 29, serum copper 84, urine heavy metal screen neg - WILSON titer 1:320 AC-2 (dense fine speckled) pattern - Immunofixation inconclusive; may need repeat serum and/or urine immunofixation electrophoresis - Similar sx previously seen in pt w/ Lyme. Pt's negative Lyme screen does not fully r/o this possibility - PT/OT following - recommending rehab upon discharge. Patient's insurance has . Attempting to re-instate. Pending rehab placement. #Psych- Buspirone, duloxetine, escitalopram, hydroxyzine, topiramate - continue #GERD- Pantoprazole - continue Dispo: Attempting to reinstate insurance prior to rehab placement VTE Prophylaxis: Lovenox 40mg Admission and Anticipated Discharge Date Admission Date: March 10, 2025 Subjective Patient seen and evaluated bedside. She reports that her pain is fairly controlled with her current regimen. She states that she is "slightly getting better each day." She reports her appetite is strong and she is sleeping well overnight. She denies any acute complaints or concerns at this time. Still waiting to hear about her insurance coverage prior to rehab placement. Physical Exam Physical Exam: General: No acute distress, nondiaphoretic, well-developed, well-nourished. Skin: Warm, dry. No rashes or peripheral edema noted. Cardiac: Regular rate and rhythm without murmurs gallops or rubs. Pulm: Clear to auscultation bilaterally without wheezes, rales or rhonchi. Normal respiratory effort. 98% on room air. Abdominal: Soft, nontender, nondistended. Bowel sounds present. Neuro: A&O x3. No focal neurological deficits. Generalized motor weakness in lower extremities bilaterally. Sensation intact in lower extremities bilaterally. Results & Data Results & Data Vital Signs (Past 12 Hours) Vital Signs Temp Pulse Resp BP Pulse Ox O2 Del Method 03/26/25 13:20 97.5 F L 80 16 92/60 L 98 Room Air 03/26/25 08:24 98.1 F 65 12 100/66 99 Room Air PG Care Time/CCT Total # of Minutes Spent Total Time Spent with Patient: Total time spent is greater than 50% in coordination of care (as documented) at patient's floor/unit and/or counseling patient: Coding Level of Care Code 88182 SUB INP/OBS CARE 2/35MIN Diagnoses Intractable back pain M54.9 Bilateral leg weakness R29.898
--- NOTE | 2025-03-27 15:04 | Hospitalist Progress Note ---
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 Lumbar spine MRI mild mid to lower lumbar discogenic degeneration, no significant central canal or foraminal narrowing, no abnormal enhancement. Tick panel negative. Lumbar spine MRI mild to lower lumbar discogenic degeneration, Thoracic spine MRI negative. Brain, cervical spine MRI negative - evidence of Chiari malformation and decompression re-demonstrated. 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 No history of such. No trauma. Does have history of Lyme disease, no recent tick bites that she is aware of, however she was not aware of a previous tick bite either and was diagnosed with Lyme. 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 - Completed 5 doses of IVIG and 10 day course of doxycycline 100 mg BID - Continue scheduled PO Oxycodone to 10 mg q8h - Continue acetaminophen 1000mg prn q8h and advised pt use between oxycodone doses and/or 30-45 minutes prior to exercise/therapy sessions for breakthrough pain vs asking for Morphine - Continue IV Morphine 2mg prn - encouraged to limit this use is much as possible. Consider discontinuing morphine and using Toradol instead given her normal renal function - Heating pad as needed - Continue Voltaren prn for piriformis pain - Neurology consulted - appreciate assistance. Similar sx previously seen in pt w/ Lyme. Pt's negative Lyme screen does not fully r/o this possibility - PT/OT following - recommending rehab upon discharge. Patient's insurance has . Attempting to re-instate. Pending rehab placement. #Psych- Buspirone, duloxetine, escitalopram, hydroxyzine, topiramate - continue #GERD- Pantoprazole - continue Dispo: Attempting to reinstate insurance prior to rehab placement VTE Prophylaxis: Lovenox 40mg Updated at bedside Admission and Anticipated Discharge Date Admission Date: March 10, 2025 Subjective Patient seen and evaluated at bedside with her present. She reports ongoing back pain and initially states no improvement but then later states some slight improvement. She reports trying to use the IV morphine less frequently. She has a good appetite and is sleeping well at night. No update regarding her insurance yet. No additional complaints or concerns at this time. Physical Exam Physical Exam: General: No acute distress, nondiaphoretic, well-developed, well-nourished. Skin: Warm, dry. No rashes or peripheral edema noted. Cardiac: Regular rate and rhythm without murmurs gallops or rubs. Pulm: Clear to auscultation bilaterally without wheezes, rales or rhonchi. Normal respiratory effort. 99% on room air. Abdominal: Soft, nontender, nondistended. Bowel sounds present. Neuro: A&O x3. No focal neurological deficits. Generalized motor weakness in lower extremities bilaterally. Sensation intact in lower extremities bilaterally. Results & Data Results & Data Vital Signs (Past 12 Hours) Vital Signs Temp Pulse Resp BP Pulse Ox Pulse Ox O2 Del Method 03/27/25 14:51 98.6 F 78 18 91/59 L 97 Room Air 03/27/25 08:00 99 03/27/25 07:08 97.9 F 89 16 94/63 L 97 Room Air O2 Del Method 03/27/25 14:51 03/27/25 08:00 Room Air 03/27/25 07:08 PG Care Time/CCT Total # of Minutes Spent Total Time Spent with Patient: Total time spent is greater than 50% in coordination of care (as documented) at patient's floor/unit and/or counseling patient: Coding Level of Care Code 30443 SUB INP/OBS CARE 2/35MIN Diagnoses Intractable back pain M54.9 Bilateral leg weakness R29.898
--- NOTE | 2025-03-28 07:49 | Hospitalist Progress Note ---
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 Lumbar spine MRI mild mid to lower lumbar discogenic degeneration, no significant central canal or foraminal narrowing, no abnormal enhancement. 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 No history of such. No trauma. Does have history of Lyme disease, no recent tick bites that she is aware of, however she was not aware of a previous tick bite either and was diagnosed with Lyme. 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 Tick panel negative Lumbar spine MRI mild to lower lumbar discogenic degeneration, Thoracic spine MRI negative Brain, cervical spine MRI negative - evidence of Chiari malformation and decompression re-demonstrated 5 doses of IVIG completed - Continue fall precautions - Scheduled PO Oxycodone to 10 mg q8h - Continue Acetaminophen 1000mg prn q8h and advised pt use between oxycodone doses and/or 30-45 minutes prior to exercise/therapy sessions for breakthrough pain vs asking for Morphine - Reduced IV Morphine 2mg prn q8h - Heating pad if needed - Continue Voltaren prn for piriformis pain - Neurology consulted - appreciate assistance. Additional labs ordered: CK low at 17, ESR and CRP neg, serum immunoglobulins wnl, SPEP c/w non- selective protein loss, Serum free kappa 16.7 & free lambda 96 w/ K/L ratio slightly elevated at 1.74 HIV and RPR neg, B12 appropriate, aldolase 7.4, GREGORIA 29, serum copper 84, urine heavy metal screen neg WILSON titer 1:320 AC-2 (dense fine speckled) pattern Immunofixation inconclusive; may need repeat serum and/or urine immunofixation electrophoresis Similar sx previously seen in pt w/ Lyme. Pt's negative Lyme screen does not fully r/o this possibility -PT/OT following Recommending rehab upon discharge Patient's insurance has . Attempting to re-instate. Pending rehab placement. -Course of doxycycline 100mg bid completed 03/25 #Psych- Buspirone, duloxetine, escitalopram, hydroxyzine, topiramate - continue #GERD- Pantoprazole - continue Dispo: continued inpatient med/surg stay VTE Prophylaxis: Lovenox 40mg Admission and Anticipated Discharge Date Admission Date: March 10, 2025 Supervising Physician Co-Signing Physician Notes I personally examined the patient and verified all lennon points of history and exam, discussed case, and agree with decision making with Dr Mensah Feellaurie about the sameongoing hip and back pain the same as before. Trying to wean back on pain medicines. Trying to move as best as she can. did complete paperwork. Vitals noted, in general she is awake and alert pleasant no distress. HEENT normocephalic atraumatic mucous membranes moist. Breathing unlabored no accessory muscle use good effort. Skin without rashes pallor or icterus. Musculoskeletal/osteopathic structural exam shows left greater than right pelvic musculature in the region of piriformis to be high tone, tender, decreased range of motion ligamentous articular strain and Post isometric relaxation muscle energy done, patient tolerated well and tissue texture did improve some Lower extremity weakness No striking findings on extensive workup. Patient has been understandably ambivalent about whether or not she would want to undergo the risk of an LP, and at the same time, given that a Guillain-Hitchcock type variant would be our lead differential, she was treated with 5 days of empiric IVIG. Given that with ongoing consideration, neurology does recall seeing a case of fulminant Lyme disease presenting similarly, did also treat with a course of doxycycline (although did not continue for 4 weeks given that her improvement started more in line with the IVIG helping then the doxycycline, making the risk/benefit of a prolonged course of Doxy more questionable). Continue therapy, continue to work on rehab placement back and hip pain/pelvic somatic dysfunctionseems to be predominantly piriformis mediated lumbosacral pain and musculoskeletal hip painOMT as above. Voltaren gel to her piriformis regions 4 times daily, Valium at bedtime. Tylenol [id number]. slowly wean back on narcotics. Otherwise as above, DVT prophylaxis with SCDs Subjective Pt reports feeling nauseous, headache and general pain this morning and no appetite for breakfast. She was awake overnight due to back and hip pain and continues to report struggling with pain control without use of IV morphine. Pt also noting a wet cough, but unsure about description of sputum. Pt states she is noting foot dragging on floor with walking, sometimes rolling her ankle. She continues working with PT/OT. Pt denies CP, SOB, abdominal pain, V/D/C. Review of Systems Review of Systems: reviewed, per HPI Physical Exam Physical Exam: Constitutional:Laying in bed, no acute distress, but uncomfortable HEENT: NCAT, no conjunctival injection CV:extremities well-perfused, no LE edema Resp: no increased work of breathing, CTAB GI: nondistended, soft and non tender. Normoactive BS MSK: no gross deformities appreciated, General weakness at bilateral LEs at grossly 3+/5 Skin: warm, dry, no rash appreciated Neuro: alert, oriented, without preserved strength in b/l LE Results & Data Results & Data Vital Signs (Past 12 Hours) Vital Signs Temp Pulse Resp BP Pulse Ox O2 Del Method 03/28/25 07:01 36.6 C 63 16 95/63 L 99 Room Air 03/27/25 19:48 36.7 C 76 14 92/59 L 94 Room Air Resident Activity Tracking Resident Involvement: Resident Care Provided Care Provided: Adult Hospital Medicine
[2025-03-28] MEDS: THIAMINE HCL 500 MG in SODIUM CHLORIDE 0.9% 50 ML IV SCH (09:23)
--- NOTE | 2025-03-28 16:39 | Billing Data ---
Date of Service March 28, 2025 Coding Level of Care Code 64646 SUB INP/OBS CARE 3MIN
[2025-03-29] MEDS: MoRPHine SULFATE 2 MG/ML CARP IV PRN (06:14)
--- NOTE | 2025-03-29 09:29 | Hospitalist Progress Note ---
Date of Service March 29, 2025 Assessment & Plan (1) Intractable back pain: (2) Bilateral leg weakness: Plan 44-year-old female PMHx gastric sleeve s/p G-tube (01/04), bipolar 1 disorder, anxiety, depression, GERD, Chiari I malformation s/p decompression (2014), MVP, and prior DVT (2006) presenting for worsening back pain with lower extremity weakness and urinary incontinence starting the day [employer]. Lumbar spine MRI mild mid to lower lumbar discogenic degeneration, no significant central canal or foraminal narrowing, no abnormal enhancement. #Intractable back pain/weakness Back pain day [employer], associated bilateral leg weakness, bladder incontinence has resolved. No history of such. No trauma. Does have history of Lyme disease, no recent tick bites that she is aware of, however she was not aware of a previous tick bite either and was diagnosed with Lyme. 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 Tick panel negative Lumbar spine MRI mild to lower lumbar discogenic degeneration, Thoracic spine MRI negative Brain, cervical spine MRI negative - evidence of Chiari malformation and decompression re-demonstrated 5 doses of IVIG completed - Continue fall precautions - Scheduled PO Oxycodone to 10 mg q8h - Continue Acetaminophen 1000mg prn q8h and advised pt use between oxycodone doses and/or 30-45 minutes prior to exercise/therapy sessions for breakthrough pain vs asking for Morphine - Continue IV Morphine 2mg prn q8h, reduce to q12 on 03/30 - Heating pad if needed - Continue Voltaren prn for piriformis pain - OMT for piriformis release and active stretching as needed - Neurology consulted - appreciate assistance. Additional labs ordered: CK low at 17, ESR and CRP neg, serum immunoglobulins wnl, SPEP c/w non- selective protein loss, Serum free kappa 16.7 & free lambda 96 w/ K/L ratio slightly elevated at 1.74 HIV and RPR neg, B12 appropriate, aldolase 7.4, GRGEORIA 29, serum copper 84, urine heavy metal screen neg WILOSN titer 1:320 AC-2 (dense fine speckled) pattern Immunofixation inconclusive; may need repeat serum and/or urine immunofixation electrophoresis Similar sx previously seen in pt w/ Lyme. Pt's negative Lyme screen does not fully r/o this possibility -PT/OT following Recommending rehab upon discharge Patient's insurance has . Pt reports insurance was approved. Awaiting CM referral to SNF. -Course of doxycycline 100mg bid completed 03/25 #Psych- Buspirone, duloxetine, escitalopram, hydroxyzine, topiramate - continue #GERD- Pantoprazole - continue Dispo: continued inpatient med/surg stay VTE Prophylaxis: Lovenox 40mg Admission and Anticipated Discharge Date Admission Date: March 10, 2025 Supervising Physician Co-Signing Physician Notes I personally examined the patient and verified all lennon points of history and exam, discussed case, and agree with decision making with Dr Menash More or less feeling about the same, but may be a little bit brighter. Case management notes insurance coverage falling into place and she may be able to go to rehab in the very near future. present at the bedside as well. Vitals noted, in general she is awake and alert pleasant no distress. HEENT normocephalic atraumatic mucous membranes moist. Breathing unlabored no accessory muscle use good effort. Skin without rashes pallor or icterus. Musculoskeletal/osteopathic structural exam shows left greater than right pelvic musculature in the region of piriformis to be high tone, tender, decreased range of motionPost isometric relaxation muscle energy done, patient tolerated well and tissue texture did improve some, Taught to do as well. Lower extremity weakness No striking findings on extensive workup. Patient had been understandably ambivalent about whether or not she would want to undergo the risk of an LP (with hx of chiari), and at the same time, given that a Guillain-Hitchcock type variant would be our lead differential, she was treated with 5 days of empiric IVIG. Given that with ongoing consideration, neurology does recall seeing a case of fulminant Lyme disease presenting similarly, did also treat with a course of doxycycline (although did not continue for 4 weeks given that her improvement started more in line with the IVIG helping then the doxycycline, making the risk/benefit of a prolonged course of Doxy more questionable). Continue therapy, Hopefully rehab in the very near future! back and hip pain/pelvic somatic dysfunctionseems to be predominantly piriformis mediated lumbosacral pain and musculoskeletal hip painOMT as above. continue Voltaren gel to her piriformis regions 4 times daily, Valium at bedtime. Tylenol [id number]. slowly weaning back on narcotics. Otherwise as above, DVT prophylaxis with SCDs Subjective Pt reports feeling better this morning that yesterday. She reports it was difficulty yesterday with less doses or morphine, but she did get some sleep last night. Pt denies nausea this morning and was actively eating breakfast when provider arrived. Pt denies CP, SOB, abdominal pain, V/D/C. Review of Systems Review of Systems: reviewed, per HPI Physical Exam Physical Exam: Constitutional:Laying in bed, no acute distress, but uncomfortable HEENT: NCAT, no conjunctival injection CV:extremities well-perfused, no LE edema Resp: no increased work of breathing, CTAB GI: nondistended, soft and non tender. Normoactive BS MSK: no gross deformities appreciated, General weakness at bilateral LEs at grossly 3+/5 Skin: warm, dry. Flushed at face, sparing periorbital bilaterally Neuro: alert, oriented, without preserved strength in b/l LE Results & Data Results & Data Vital Signs (Past 12 Hours) Vital Signs Temp Pulse Resp BP Pulse Ox O2 Del Method 03/29/25 07:04 36.7 C 64 16 100/67 98 Room Air Resident Activity Tracking Resident Involvement: Resident Care Provided Care Provided: Adult Hospital Medicine
--- NOTE | 2025-03-29 19:26 | Billing Data ---
Date of Service March 29, 2025 Coding Level of Care Code 48450 SUB INP/OBS CARE MIN
[2025-03-29 19:53] VITALS: TEMP 97.5
--- NOTE | 2025-03-30 06:40 | Hospitalist Progress Note ---
Date of Service March 30, 2025 Assessment & Plan (1) Intractable back pain: (2) Bilateral leg weakness: Plan 44-year-old female PMHx gastric sleeve s/p G-tube (01/04), bipolar 1 disorder, anxiety, depression, GERD, Chiari I malformation s/p decompression (2014), MVP, and prior DVT (2006) presenting for worsening back pain with lower extremity weakness and urinary incontinence starting the day [employer]. Lumbar spine MRI mild mid to lower lumbar discogenic degeneration, no significant central canal or foraminal narrowing, no abnormal enhancement. Pt has made significant improvement in bilateral LE strength, sensation and functional mobility over the last 2 weeks. #Intractable back pain/weakness Back pain day [employer], associated bilateral leg weakness, bladder incontinence has resolved. No history of such. No trauma. Does have history of Lyme disease, no recent tick bites that she is aware of, however she was not aware of a previous tick bite either and was diagnosed with Lyme. 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 Tick panel negative Lumbar spine MRI mild to lower lumbar discogenic degeneration, Thoracic spine MRI negative Brain, cervical spine MRI negative - evidence of Chiari malformation and decompression re-demonstrated 5 doses of IVIG completed LE strength improved, pt able to walk in room with FWW. Continues with significant LBP. - Continue PO Oxycodone to 10 mg q8h - Continue Acetaminophen 1000mg prn q8h and advised pt use between oxycodone doses and/or 30-45 minutes prior to exercise/therapy sessions for breakthrough pain vs asking for Morphine - Continue IV Morphine 2mg prn q12h - Heating pad if needed - Continue Voltaren prn for piriformis pain - OMT for piriformis release and active stretching as needed - Neurology consulted - appreciate assistance. Additional labs ordered: CK low at 17, ESR and CRP neg, serum immunoglobulins wnl, SPEP c/w non- selective protein loss, Serum free kappa 16.7 & free lambda 96 w/ K/L ratio slightly elevated at 1.74 HIV and RPR neg, B12 appropriate, aldolase 7.4, GREGORIA 29, serum copper 84, urine heavy metal screen neg WILSON titer 1:320 AC-2 (dense fine speckled) pattern Immunofixation inconclusive; may need repeat serum and/or urine immunofixation electrophoresis Similar sx previously seen in pt w/ Lyme. Pt's negative Lyme screen does not fully r/o this possibility -Course of doxycycline 100mg bid completed 03/25 -PT/OT following Recommending rehab upon discharge Pt reports insurance was approved as on 03/28. Awaiting CM referral to [facility]. #Psych- Buspirone, duloxetine, escitalopram, hydroxyzine, topiramate - continue #GERD- Pantoprazole - continue Dispo: continued inpatient med/surg stay VTE Prophylaxis: Lovenox 40mg Admission and Anticipated Discharge Date Admission Date: March 10, 2025 Subjective Pt reports she only used IV morphine 2 times yesterday and was able to tolerate back/hip pain. Pt is eager to leave hospital to start rehab. She is noting some nausea this morning as well as a mild PAUL. Pt denies CP, SOB, abdominal pain, V/D/C. Review of Systems Review of Systems: reviewed, per HPI Physical Exam Physical Exam: Constitutional:Laying in bed, no acute distress, but uncomfortable HEENT: NCAT, no conjunctival injection CV:extremities well-perfused, no LE edema Resp: no increased work of breathing, CTAB GI: nondistended, soft and non tender. Normoactive BS MSK: no gross deformities appreciated, General weakness at bilateral LEs at grossly 3+/5 Skin: warm, dry. Flushed at face, sparing periorbital bilaterally Neuro: alert, oriented, without preserved strength in b/l LE Results & Data Results & Data Vital Signs (Past 12 Hours) Vital Signs Temp Pulse Resp BP Pulse Ox O2 Del Method 03/29/25 19:52 36.4 C L 66 16 93/60 L 98 Room Air
[2025-03-30 07:22] VITALS: BP 98/66; PULSE 62; RESP 15
[2025-03-30] MEDS: THIAMINE HCL 100 MG TAB PO SCH (08:37)
[2025-03-30 09:37] VITALS: O2SAT 94
[2025-03-30] MEDS: MoRPHine SULFATE 2 MG/ML CARP IV PRN (14:54)
--- NOTE | 2025-03-30 16:17 | Discharge Summary ---
Date of Service March 30, 2025 Admission HPI Per Admitting Provider 44-year-old female PMHx gastric sleeve s/p G-tube (01/04), bipolar 1 disorder, anxiety, depression, GERD GI malformation s/p decompression (2014), MVP, and prior DVT (2006) presenting for worsening back pain with lower extremity weakness and urinary incontinence starting the day [employer]. Patient reports the morning [employer] she started to have sharp, stabbing, and aching low back pain. She initially woke up and felt that her back was stiff but then throughout the day became painful. She states that her hips and legs are having pain to, and they slowly have become more weak. She says that the bottom of her feet are numb. The day [employer], she was with her coworker going to a meeting in [place] and was in the car for 2 hours to and from. She states that throughout the ride she felt that her pain and stiffness was getting worse, so whenever she got out of the car she did take a Tylenol and try to walk around. She states that this did not help any of her symptoms. She rode in the car 2 hours back when she got out of the car that tried to stretch but states that this still does not help her pain. That night, she took a warm bath to try to alleviate some of the symptoms which did not help. She continues to take Tylenol and an old prescription of her muscle relaxer, but had no relief of symptoms. She states the morning of arrival, she had an episode of urinary incontinence. No bowel incontinence. She states her pain is currently a 6 out of 10 on the pain scale, still mainly in her lower back also with complete loss of sensation of her BLE. Has had no infectious symptoms, no recent injury or trauma to the back, no tick bites. Is having some nausea secondary to pain. She has never had this happen before. Denies chest pain, SOB, palpitations, abdominal pain, V/D/C, LUTS, URI symptoms, syncope, or LOC. ED reveals CBC leukopenia 3.94;; chloride 108, AST 12.4; lipase 13; UA negative for infection; lumbar spine MRI mild mid to lower lumbar discogenic degeneration, no significant central canal or foraminal narrowing, no abnormal enhancement.; Provided with 500 mL NSS, Zofran 4 mg IV, morphine 4 yuliana IV x 3, and lorazepam 1 mg IV in ED. Please see Dr. Reyes's attestation for adjustments/additions to treatment plan. Principal Diagnosis GBS- variant, leg weakness, low back pain Discharge Exam Constitutional:Laying in bed, no acute distress, but uncomfortable HEENT: NCAT, no conjunctival injection CV:extremities well-perfused, no LE edema Resp: no increased work of breathing, CTAB GI: nondistended, soft and non tender. Normoactive BS MSK: no gross deformities appreciated, General weakness at bilateral LEs at grossly 3+/5 Skin: warm, dry. Flushed at face, sparing periorbital bilaterally Neuro: alert, oriented, without preserved strength in b/l LE Discharge Data Allergies Allergy/AdvReac Type Severity Reaction Status Date / Time Fish Containing Products Allergy Intermediate Rash Verified 03/08/25 15:46 shellfish derived AdvReac Severe PASSED OUT Verified 03/08/25 15:46 Consultations 03/08/25 17:30 Consult Neurology Routine 03/08/25 18:29 ED Decision to Admit Stat Ordered Studies 03/08/25 12:53 MRI Lumbar Spine [MR lumbar spine wo/w con] Stat 03/09/25 19:50 MR thoracic spine wo/w con Stat 03/10/25 07:00 MR brain wo/w con Urgent MR cervical spine wo/w con Urgent 03/12/25 10:58 MR cervical sp flex/ext CSF wo Routine Hospital Course (1) Intractable back pain: (2) Bilateral leg weakness: Plan 44-year-old female PMHx gastric sleeve s/p G-tube (01/04), bipolar 1 disorder, anxiety, depression, GERD, Chiari I malformation s/p decompression (2014), MVP, and prior DVT (2006) presenting for worsening back pain with lower extremity weakness and urinary incontinence starting the day [employer]. Lumbar spine MRI mild mid to lower lumbar discogenic degeneration, no significant central canal or foraminal narrowing, no abnormal enhancement. Pt has made significant improvement in bilateral LE strength, sensation and functional mobility over the last 2 weeks. Continues with deficits for ability to care for self at home and usual IADLs. #Intractable back pain/weakness Back pain day [employer], associated bilateral leg weakness, bladder incontinence has resolved. No history of such. No trauma. Does have history of Lyme disease, no recent tick bites that she is aware of, however she was not aware of a previous tick bite either and was diagnosed with Lyme. 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 Tick panel negative Lumbar spine MRI mild to lower lumbar discogenic degeneration, Thoracic spine MRI negative Brain, cervical spine MRI negative - evidence of Chiari malformation and decompression re-demonstrated 5 doses of IVIG completed LE strength improved, pt able to walk in room with FWW. Continues with significant LBP. - Continue PO Oxycodone to 10 mg q8h - Continue Acetaminophen 1000mg prn q8h and advised pt use between oxycodone doses and/or 30-45 minutes prior to exercise/therapy sessions for breakthrough pain vs asking for Morphine - Continue IV Morphine 2mg prn q12h - Heating pad if needed - Continue Voltaren prn for piriformis pain - OMT for piriformis release and active stretching as needed - Neurology consulted - appreciate assistance. Additional labs ordered: CK low at 17, ESR and CRP neg, serum immunoglobulins wnl, SPEP c/w non-selective protein loss, Serum free kappa 16.7 & free lambda 96 w/ K/L ratio slightly elevated at 1.74 HIV and RPR neg, B12 appropriate, aldolase 7.4, GREGORIA 29, serum copper 84, urine heavy metal screen neg WILSON titer 1:320 AC-2 (dense fine speckled) pattern Immunofixation inconclusive; may need repeat serum and/or urine immunofixation electrophoresis Similar sx previously seen in pt w/ Lyme. Pt's negative Lyme screen does not fully r/o this possibility -Course of doxycycline 100mg bid completed 03/25 -PT/OT following Recommending acute rehab upon discharge #Psych- Buspirone, duloxetine, escitalopram, hydroxyzine, topiramate - continue #GERD- Pantoprazole - continue Total Time Total Time Spent Total Time Spent (In Minutes): <30 Discharge Plan Discharge Items Patient Disposition: Transfer Inpatient Rehab Fac Reason For Visit: INTRACTABLE BACK PAIN, WEAKNESS Discharge Diagnosis: GBS variant, back pain Condition on Discharge: Fair Activity: Resume your previous activity Non-emergency contact: Primary Care Provider Call non-emergency contact if: your symptoms worsen Follow-up/Referrals: Silvana Mcgarry CRNP [Primary Care Provider] - Diet: Regular Addtl Attending Provider Instructions: 44-year-old female PMHx gastric sleeve s/p G-tube (01/04), bipolar 1 disorder, anxiety, depression, GERD, Chiari I malformation s/p decompression (2014), MVP, and prior DVT (2006) presenting for worsening back pain with lower extremity weakness and urinary incontinence starting the day [employer]. Lumbar spine MRI mild mid to lower lumbar discogenic degeneration, no significant central canal or foraminal narrowing, no abnormal enhancement. Pt has made significant improvement in bilateral LE strength, sensation and functional mobility over the last 2 weeks. #Intractable back pain/weakness Back pain day [employer], associated bilateral leg weakness, bladder incontinence has resolved. No history of such. No trauma. Does have history of Lyme disease, no recent tick bites that she is aware of, however she was not aware of a previous tick bite either and was diagnosed with Lyme. 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 Tick panel negative Lumbar spine MRI mild to lower lumbar discogenic degeneration, Thoracic spine MRI negative Brain, cervical spine MRI negative - evidence of Chiari malformation and decompression re-demonstrated 5 doses of IVIG completed LE strength improved, pt able to walk in room with FWW. Continues with significant LBP. - Continue PO Oxycodone to 10 mg q8h - Continue Acetaminophen 1000mg prn q8h and advised pt use between oxycodone doses and/or 30-45 minutes prior to exercise/therapy sessions for breakthrough pain vs asking for Morphine - Continue IV Morphine 2mg prn q12h - Heating pad if needed - Continue Voltaren prn for piriformis pain - OMT for piriformis release and active stretching as needed - Neurology consulted - appreciate assistance. Additional labs ordered: CK low at 17, ESR and CRP neg, serum immunoglobulins wnl, SPEP c/w non- selective protein loss, Serum free kappa 16.7 & free lambda 96 w/ K/L ratio slightly elevated at 1.74 HIV and RPR neg, B12 appropriate, aldolase 7.4, GREGORIA 29, serum copper 84, urine heavy metal screen neg WILSON titer 1:320 AC-2 (dense fine speckled) pattern Immunofixation inconclusive; may need repeat serum and/or urine immunofixation electrophoresis Similar sx previously seen in pt w/ Lyme. Pt's negative Lyme screen does not fully r/o this possibility -Course of doxycycline 100mg bid completed 03/25 -PT/OT following Recommending rehab upon discharge Pt reports insurance was approved as on 03/28. Awaiting CM referral to [facility]. #Psych- Buspirone, duloxetine, escitalopram, hydroxyzine, topiramate - continue #GERD- Pantoprazole - continue Pending Studies at Discharge: No Stand-Alone Forms: My [facility] Skilled Items Patient informed of condition?: Yes DNR: No Discharge Level of Care: Acute rehab Communicable Disease: No Discharge Prognosis: Improving Lines: None Urinary Catheter: No Medications and DC Order Prescriptions: New thiamine HCl (vitamin B1) 100 mg tablet 200 mg PO DAILY Qty: 60 3RF polyethylene glycol 3350 [Miralax] 17 gram Powder In Packet 17 g PO DAILY PRN (Reason: constipation) 30 Days Qty: 30 0RF melatonin 3 mg Tablet 3 mg PO HS PRN (Reason: sleep) Qty: 30 0RF oxycodone 5 mg Tablet 10 mg PO Q8H PRN (Reason: pain) Qty: 10 0RF Continued escitalopram oxalate [Lexapro] 20 mg tablet 20 mg PO QAM 90 Days Qty: 90 4RF topiramate [Topamax] 100 mg tablet 100 mg PO HS Qty: 90 3RF buspirone 15 mg tablet 15 mg PO BID cyanocobalamin (vitamin B-12) 1,000 mcg Capsule 1,000 mcg PO QAM cholecalciferol (vitamin D3) [Vitamin D3] 50 mcg (2,000 unit) Capsule 50 mcg PO QAM ondansetron 8 mg Tablet,Disintegrating 8 mg PO Q8H PRN (Reason: nausea and vomiting) Qty: 30 0RF metoclopramide HCl [Reglan] 10 mg Tablet 10 mg PO QID PRN (Reason: ABD DISCOMFORT) hydroxyzine pamoate 25 mg Capsule 50 mg PO HS duloxetine [Cymbalta] 20 mg Capsule,Delayed Release(Dr/Ec) 20 mg PO QAM Qty: 30 0RF biotin 10 mg Tablet 10 mg PO DAILY folic acid 400 mcg Tablet 0.4 mg PO DAILY magnesium oxide 400 mg magnesium Tablet 0 mg PO DAILY Rx Instructions: PT UNSURE OF STRENGTH Aimovig Autoinjector 140 mg/mL auto-injector 140 mg subcut MONTHLY pantoprazole 40 mg tablet,delayed release (DR/EC) 40 mg PO BID Discharge Orders: Discharge Order (Routine); Ordered 03/30/25 Ordered By: Shantell Vyas/Other Patient Handouts: Medicine for Pain Admission Data Admit Date/Time: 03/10/25 10:01 Attending Provider: Pawan Escalante Admit Provider: Jazmín Reyes Primary Care Provider: Silvana Mcgarry Other Providers: Harjinder Sparks; Augustine Prieto; [facility] Other Interventions: Discharge Summary Assessment (RN) Last Done: 03/30/25 16:54 Supervising Physician Co-Signing Physician Notes I personally examined the patient and verified all lennon points of history and exam, discussed case, and agree with decision making with Dr Mensah for rehab today! Vitals noted, in general she is awake and alert pleasant no distress. HEENT normocephalic atraumatic mucous membranes moist. Breathing unlabored no accessory muscle use good effort. Skin without rashes pallor or icterus. Lower extremity weakness No striking findings on extensive workup. Patient had been understandably ambivalent about whether or not she would want to undergo the risk of an LP (with hx of chiari), and at the same time, given that a Guillain-Hitchcock type variant would be our lead differential, she was treated with 5 days of empiric IVIG. Given that with ongoing consideration, neurology does recall seeing a case of fulminant Lyme disease presenting similarly, did also treat with a course of doxycycline (although did not continue for 4 weeks given that her improvement started more in line with the IVIG helping then the doxycycline, making the risk/benefit of a prolonged course of Doxy more questionable). for rehab today! back and hip pain/pelvic somatic dysfunctionseems to be predominantly piriformis mediated lumbosacral pain and musculoskeletal hip painOMT done throughout latter part of hospital stay. continue Voltaren gel to her piriformis regions 4 times daily, Valium at bedtime. Tylenol [id number]. slowly weaning back on narcotics. Otherwise as above, DVT prophylaxis was done with [facility] Resident Activity Tracking Resident Involvement: Resident Care Provided Care Provided: Adult Hospital Medicine
--- NOTE | 2025-03-30 18:51 | Billing Data ---
Date of Service March 30, 2025 Coding Level of Care Code 27265 IN/OBS DISCH 30 MIN/LESS
== END 2025-03-30 17:18 | DRG 95 ==
LOC: ED 12:32 → 3W 12:32 → SUATTDRO 19:29 → 3W 20:48 → SUATTDRO 03-10 10:01

== ENCOUNTER 2025-04-30 19:22 | Observation (INO) ==
--- NOTE | 2025-04-30 19:37 | Emergency Department Note ---
Impression & Plan Syncope, Head injury, Nausea & vomiting, Dizziness ED Provider Note NAME: FAMILIA YUSUF AGE: 44 SEX: F : 1980 ARRIVES VIA: Ambulance INFORMANT: Patient, EMS ED PROVIDER(S): Mo Curran DO CHIEF COMPLAINT: Syncope HPI: The patient is a 44-year-old female who presented to the emergency department for an evaluation after having a syncopal episode. The patient had a syncopal episode that was not witnessed by herself. She does not remember what happened. The patient states that she awoke on the floor. She complains of a right sided headache. She denies having any chest pain or difficulty breathing. She states that she had some nausea vomiting before the onset of the syncope. She denies having any abdominal pain or back pain at this time. ROS: See above HPI for pertinent positives & negatives. A total of 10 systems reviewed and were otherwise negative. PAST MEDICAL HISTORY: See Below PAST SURGICAL HISTORY: See Below FAMILY HISTORY: See Below SOCIAL HISTORY: See Below HOME MEDICATIONS: See Below ALLERGIES: See Below VITALS: See Below PHYSICAL EXAMINATION: GENERAL: The patient is awake and answering questions. She is slow to answer questions but answers appropriately. EYES: The conjunctivae are clear. The pupils are dilated and reactive. EARS, NOSE, MOUTH AND THROAT: The nose is without any evidence of any deformity. Mucous membranes are moist. Tongue is midline. NECK: The neck is nontender and supple. RESPIRATORY: Normal respiratory effort is noted there is no evidence of wheezing rhonchi or rales CARDIOVASCULAR: Regular rate and rhythm noted there no murmurs rubs or gallops normal S1 normal S2. GASTROINTESTINAL: The abdomen is soft. Abdomen is nontender. BACK: No midline tenderness or or step-off noted range of motion in flexion extension as well as rotation no signs of muscle spasm noted MUSCULOSKELETAL/EXTREMITIES: There is no evidence of gross deformity full range of motion is noted in the hips and shoulders. There is tenderness in the right side of forehead. No ecchymosis was noted. SKIN: There is no obvious evidence of any rash. There are no petechiae, pallor or cyanosis noted. NEUROLOGIC: Patient is awake and oriented x3 strength is symmetric patellar reflexes are 2+ bilaterally MEDICAL DECISION MAKING: The patient is a 44-year-old female who presented to the emergency department for an evaluation by ambulance. The patient had a syncopal episode. She fell forward striking the right side of her head. The patient had no recollection of the event but her did present to the emergency department and gave some of the history. The patient states that she has been having problems with dizziness as well as vomiting over the last few days. She is worried because she has not been keeping her medications down. I discussed the patient's laboratory and radiographic studies with her. She was treated with IV fluids IV antiemetics and IV pain medication in the emergency department. She was reevaluated multiple times. On reevaluation she was not feeling much better and did not feel that she could go home. For this reason I discussed her condition with the on-call [facility] hospitalist. Triage Nursing notes reviewed. Prior medical records reviewed Vital Signs: reviewed and remarkable for no significant abnormalities Differential diagnosis: Vasovagal event, dehydration, infection, hypoglycemia, electrolyte abnormalities, cardiac sources, intracerebral event, pulmonary embolism, seizure, toxicologic, neurologic, as well as other pathologies. ER treatment provided: See below Diagnostics interpreted by me: ECG: EKG was obtained in the emergency department. My interpretation is normal sinus rhythm at 77 bpm. There is no ectopy. There is no acute ST segment abnormalities noted. This was compared to a tracing from October 06, 2024. No changes were noted. Cardiac Monitoring: An order was placed for continuous cardiac monitoring. The monitor shows a rate of 80 bpm with sinus rhythm. Laboratory studies: As stated above and show below. Imaging studies: See below. Radiographic imaging was reviewed by myself Consultation(s): I discussed this case with Dr. Re[facility]. Past Med/Surg History Problem List (Updated 05/01/25 @ 00:38 by Mo Curran DO) Dizziness (Acute) Nausea & vomiting (Acute) Head injury (Acute) Syncope (Acute) Chronic diarrhea Lumbosacral radiculopathy Thiamine deficiency, unspecified Chiari I malformation Bilateral leg numbness Bilateral leg weakness Intractable back pain Cervical radiculopathy Adnexal cyst Paresthesia of left upper extremity Intermittent palpitations Allergic rhinitis due to pollen Snoring Hypersomnia CASSI III (cervical intraepithelial neoplasia III) History of claustrophobia Plantar fasciitis Mixed hyperlipidemia Binge eating disorder Metabolic syndrome Carpal tunnel syndrome, right Morbid obesity Strain of right biceps tendon Migraine without aura, not intractable, without status migrainosus Eustachian tube dysfunction Mitral valve prolapse syndrome (Acute) Vitamin B12 deficiency (Acute) Vitamin D deficiency (Acute) Degenerative disc disease Medical History Drainage from gastrostomy tube site Pain around PEG tube site Anxiety Depression Abdominal pain Bipolar I disorder, single manic episode GERD (gastroesophageal reflux disease) Hypertriglyceridemia Chiari malformation s/p decompression (~2014) No issues since per 05/12/[address] "There has been prior posterior suboccipital decompression. There is persistent caudal positioning of the cerebellar tonsils consistent with Chiari I malformation. 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 ECHO Hx of Lyme disease 2014 - antibiotic completed Hx of ectopic Anxiety and depression Morbid obesity Pre-diabetes s/p gastric sleeve procedure - no longer an issue GERD (gastroesophageal reflux disease) controlled, stable per pt Post traumatic stress disorder Deep vein thrombosis Around 2006 (LUE- unknown etiology) Headache h/o post spinal tap PAUL and generalized weakness in 2018 per 09/2020 [facility] neuro note Surgical History Hx laparoscopic cholecystectomy Status post sleeve gastrectomy 12/22/23 @ [facility] Myriam Villanueva Hx of hysterectomy History of carpal tunnel release Right History of MRI Right elbow MRI (02/13/22): MAC at [facility]. No issues noted per post-op anesthesia progress note. History of surgery Chiari Malformation repair (~2014; [facility]) Hx of foot surgery R/L repair of plantar fasciitis and removal of heel spurs History of laparoscopy History of tooth extraction Family History Grandmother (Paternal) Family history of diabetes mellitus Family/Other Chiari malformation Venous thrombosis Grandmother Stroke Mother Hypothyroidism Father Mitral valve prolapse Grandmother (Maternal) Breast cancer Denies family history of Ovarian cancer Colorectal cancer Social History Smoking Status: Never smoker Second Hand Exposure: No; Do You Dip or Chew Tobacco: No; Hx Alcohol Use: No Hx Substance Use: No Preferred Language: Taiwanese Communication Ability: Effective Retail 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 Required: No Beliefs That Will Affect Care: None marital status: Current Living Situation: Spouse Current Living Situation Comment: lives with the and children current occupational status: employed 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 Feels Safe at Home: Yes Diet: low carbohydrate and other Diet Comment: high protein Physical Activity Frequency: 5-6 Times per Week Assistive Devices: None Allergies Allergies Allergy/AdvReac Type Severity Reaction Status Date / Time Fish Containing Products Allergy Intermediate Rash Verified 04/30/25 09:34 shellfish derived AdvReac Severe PASSED OUT Verified 04/30/25 09:34 Home Meds Home Medications Medication Instructions Recorded Confirmed buspirone 15 mg tablet 15 mg PO BID 07/15/22 04/30/25 hydroxyzine pamoate 25 mg capsule 50 mg PO HS 11/24/24 04/30/25 melatonin 3 mg tablet 3 mg PO HS sleep 04/30/25 pantoprazole 40 mg tablet,delayed 40 mg PO DAILY 04/30/25 04/30/25 release Previous Rx's Medication Instructions Recorded escitalopram oxalate 20 mg tablet 20 mg PO QAM 90 days #90 tabs 03/28/24 (Lexapro) ondansetron 8 mg disintegrating 8 mg PO Q8H PRN nausea and 09/04/24 tablet vomiting #30 tabs duloxetine 20 mg capsule,delayed 20 mg PO QAM #30 caps 12/05/24 release (Cymbalta) topiramate 100 mg tablet (Topamax) 100 mg PO HS #90 tabs 03/20/25 erenumab-aooe 140 mg/mL 140 mg subcut MONTHLY #1 mL 04/10/25 subcutaneous auto-injector (Aimovig Autoinjector) diazepam 5 mg tablet 5 mg PO DAILY PRN muscle spasm #30 04/12/25 tabs oxycodone 5 mg tablet 10 mg (2 x 5 mg) PO Q8H PRN pain 04/12/25 #60 tabs Results & Data (ED) Vital Signs Vital Signs - 24 hr 04/30/25 19:28 04/30/25 19:28 04/30/25 19:28 Temperature 37.1 C Temperature Source Oral Pulse Rate 79 Pulse Rate [Apical] 79 Pulse Rate from SpO2 Sensor Pulse Rhythm Regular Pulse Rhythm [Apical] Regular Pulse Strength Normal Pulse Strength [Apical] Normal Respiratory Rate 16 Respiratory Effort / Characteristics Non-Labored Spontaneous Respiratory Depth Normal Respiratory Pattern Regular Blood Pressure 115/54 L Blood Pressure [Right Arm] 115/54 L Blood Pressure Mean 74 Blood Pressure Mean [Right Arm] 74 Blood Pressure Position Lying Blood Pressure Position [Right Arm] Lying Pulse Oximetry 97 97 Oxygen Delivery Method Room Air Room Air Sepsis Recent Fever Within 48 Hours No Sepsis New/Unexplained Change in Mental Status No Sepsis Action Taken by Nursing No Action Required 04/30/25 19:31 04/30/25 19:32 04/30/25 20:00 Temperature Temperature Source Pulse Rate 79 75 80 Pulse Rate [Apical] Pulse Rate from SpO2 Sensor Pulse Rhythm Regular Pulse Rhythm [Apical] Pulse Strength Pulse Strength [Apical] Respiratory Rate 20 15 Respiratory Effort / Characteristics Respiratory Depth Respiratory Pattern Blood Pressure 103/69 Blood Pressure [Right Arm] Blood Pressure Mean 78 Blood Pressure Mean [Right Arm] Blood Pressure Position Blood Pressure Position [Right Arm] Pulse Oximetry 97 98 Oxygen Delivery Method Room Air Sepsis Recent Fever Within 48 Hours Sepsis New/Unexplained Change in Mental Status Sepsis Action Taken by Nursing 04/30/25 20:30 04/30/25 20:51 04/30/25 21:15 Temperature 37 C Temperature Source Oral Pulse Rate 80 85 Pulse Rate [Apical] 82 Pulse Rate from SpO2 Sensor 88 Pulse Rhythm Pulse Rhythm [Apical] Regular Pulse Strength Pulse Strength [Apical] Normal Respiratory Rate 12 13 20 Respiratory Effort / Characteristics Non-Labored Spontaneous Respiratory Depth Normal Respiratory Pattern Regular Blood Pressure 105/69 Blood Pressure [Right Arm] 104/74 Blood Pressure Mean 77 Blood Pressure Mean [Right Arm] 84 Blood Pressure Position Blood Pressure Position [Right Arm] Lying Pulse Oximetry 93 97 100 Oxygen Delivery Method Room Air Sepsis Recent Fever Within 48 Hours Sepsis New/Unexplained Change in Mental Status Sepsis Action Taken by Nursing 04/30/25 23:00 04/30/25 23:25 05/01/25 00:00 Temperature Temperature Source Pulse Rate 92 H Pulse Rate [Apical] 76 88 Pulse Rate from SpO2 Sensor Pulse Rhythm Pulse Rhythm [Apical] Pulse Strength Pulse Strength [Apical] Respiratory Rate 18 16 Respiratory Effort / Characteristics Respiratory Depth Respiratory Pattern Blood Pressure Blood Pressure [Right Arm] 108/69 93/57 L Blood Pressure Mean Blood Pressure Mean [Right Arm] 82 69 Blood Pressure Position Blood Pressure Position [Right Arm] Pulse Oximetry 98 97 Oxygen Delivery Method Room Air Sepsis Recent Fever Within 48 Hours Sepsis New/Unexplained Change in Mental Status Sepsis Action Taken by [facility] Medications Current Medication List: was personally reviewed by me Laboratory Data Attestation: I reviewed the patient's lab results. 04/30/25 19:30 04/30/25 19:30 Lab Results 04/30/25 04/30/25 Range/Units 19:30 23:31 WBC 4.48 L (4.8-10.8) K/ul RBC 4.48 (4.20-5.40) M/uL Hgb 13.6 (12.0-16.0) g/dl Hct 39.8 (37.0-47.0) % MCV 88.8 (80.0-100.0) fL MCH 30.4 (25.0-34.0) pg MCHC 34.2 (32.0-36.0) g/dL RDW Std Deviation 40.6 (36.4-46.3) fL RDW Coeff of Zuleyma 12.5 (11.5-14.5) % Plt Count 191 (130-400) K/uL MPV 10.7 (9.4-12.4) fL Immature Gran % (Auto) 0.0 % Neut % (Auto) 48.9 % Lymph % (Auto) 43.5 % [place] % (Auto) 4.7 % Eos % (Auto) 2.0 % Baso % (Auto) 0.9 % Neut # (Auto) 2.19 (1.40-6.50) K/uL Lymph # (Auto) 1.95 (1.20-3.40) K/uL [place] # (Auto) 0.21 (0.11-0.59) K/uL Eos # (Auto) 0.09 (0.00-0.50) K/uL Baso # (Auto) 0.04 (0.00-0.20) K/uL Immature Gran # (Auto) 0.00 L (0.01-0.20) K/uL Sodium 138 (136-145) mmol/L Potassium 3.7 (3.5-5.1) mmol/L Chloride 108 H (98-107) mmol/L Carbon Dioxide 25 (21-32) mmol/L Anion Gap 5 (3-11) BUN 15 (6-23) mg/dl Creatinine 1.20 (0.6-1.2) mg/dl Est Cr Clr Drug Dosing 47.8 ml/min eGFR 57.60 BUN/Creatinine Ratio 12.5 (10-20) Glucose 99 (70-99(Fasting)) mg/dl Calcium 9.1 (8.6-10.3) mg/dl Magnesium 2.0 (1.7-2.4) mg/dl Total Bilirubin 0.6 (0.2-1.0) mg/dl AST 10 L (13-39) U/L ALT 6 L (7-52) U/L Alkaline Phosphatase 56 (34-104) U/L Troponin I High Sens < 2.3 (0-14) pg/ml Total Protein 7.3 (6.0-8.3) gm/dl Albumin 3.9 (3.4-5.0) gm/dl Globulin 3.4 (2.5-4.0) gm/dl Albumin/Globulin Ratio 1.1 (0.9-2) TSH 1.037 (0.300-4.500) uIu/ml HCG, Qual Negative (Negative) Urine Color Yellow Urine Appearance Cloudy A (Clear) Urine pH 6.0 (4.5-7.5) Ur Specific [place] 1.025 (1.000-1.030) Urine Protein Negative (Negative) Urine Glucose (UA) Negative (Negative) Urine Ketones Negative (Negative) Urine Blood Negative (Negative) Urine Nitrite Negative (Negative) Urine Bilirubin Negative (Negative) Urine Urobilinogen Negative (Negative) Ur Leukocyte Esterase Negative (Negative) Urine RBC 0-2 (0-2) /hpf Urine WBC 0-5 (0-5) /hpf Ur Epithelial Cells >20 H (0-2) /hpf Urine Bacteria None Seen (None Seen) Urine Yeast Present A (None Prsent) Urine Comment Urine Opiates Screen Pos H (Neg) Ur Methadone, Qual Neg (Neg) Urine Fentanyl Screen Neg (Neg) Urine Barbiturates Neg (Neg) Ur Phencyclidine (PCP) Neg (Neg) U Amphetamin/Meth Scrn Neg (Neg) MDMA (Ecstasy) Screen Neg (Neg) U Benzodiazepines Scrn Pos H (Neg) Ur Cocaine Metabolite Neg (Neg) U Marijuana (THC) Screen Neg (Neg) Administered Medications Discontinued Medications Sodium Chloride (Nss) 500 mls @ 999 mls/hr IV .Q31M RADHA Stop: 04/30/25 20:15 Last Infusion: 04/30/25 21:01 Dose: Infused Documented By: Admin: 04/30/25 19:38 Dose: 999 mls/hr Documented By: JESSICA Acetaminophen (Ofirmev) 1,000 mg in 100 mls @ 400 mls/hr IV NOW STA Stop: 04/30/25 19:46 Last Infusion: 04/30/25 20:09 Dose: Infused Documented By: Admin: 04/30/25 19:38 Dose: 400 mls/hr Documented By: JESSICA Promethazine HCl (Phenergan) 12.5 mg in 50.5 mls @ 202 mls/hr IV NOW STA Stop: 04/30/25 21:47 Last Infusion: 04/30/25 22:41 Dose: Infused Documented By: Admin: 04/30/25 21:41 Dose: 202 mls/hr Documented By: MINESH Ketorolac Tromethamine (Ketorolac Tromethamine 15 Mg/Ml Vial) 10 mg IV NOW ONE Stop: 04/30/25 21:34 Last Admin: 04/30/25 21:41 Dose: 10 mg Documented By: MINESH Morphine Sulfate (Morphine Sulfate 4 Mg/Ml 1 Ml Carp\\Vial) 4 mg IV NOW STA Stop: 04/30/25 23:38 Last Admin: 04/30/25 23:40 Dose: 4 mg Documented By: RYNE Ondansetron HCl (Ondansetron Inj 2 Mg/Ml 2 Ml Vial) 4 mg IV NOW STA Stop: 04/30/25 19:33 Last Admin: 04/30/25 19:38 Dose: 4 mg Documented By: JESSICA Imaging Data Attestation: I personally reviewed and interpreted this imaging study as follows: My Impression: CT of the brain was obtained in the emergency department. My interpretation is no intracranial hemorrhage or mass effect, final report below. Radiologist's Impression: Cervical Spine CT 04/30/25 19:33 CT cervical spine without contrast Technique: Noncontrast axial images cervical spine. Coronal and sagittal reformatted images made available for review Comparison made to prior exam dated 11/10/2022 Findings: Vertebral bodies are normal in height and aligned without fracture or dislocation. No significant canal or foraminal stenosis Impression No acute osseous pathology. Electronically signed by Pawan Barbour 04-30-2025 8:12 PM Chest X-Ray 04/30/25 19:33 Exam(s): XR CXR 1 VIEW EXAM: XR Chest, 1 View CLINICAL HISTORY: Reason for exam: fall. TECHNIQUE: Frontal view of the chest. COMPARISON: No relevant prior studies available. FINDINGS: Lungs: Unremarkable. No consolidation. Pleural space: Unremarkable. No pneumothorax. Heart: Unremarkable. No cardiomegaly. Mediastinum: Unremarkable. Normal mediastinal contour. Bones/joints: Unremarkable. No acute fracture. IMPRESSION: Normal chest x-ray. Electronically signed by: Pawan Barbour MD 04/30/25 23:[address] 04/30/25 19:33 CT of the head without contrast Technique: Noncontrast axial images of the head. Coronal and sagittal reformatted images made available for review Comparison made to prior exam dated 10/06/2024 Findings:No acute intracranial hemorrhage. No acute transcortical infarct. No midline shift. Ventricles, sulci, cisterns within normal limits. Bone windows demonstrate no focal abnormality Impression Head CT negative for acute intracranial abnormality Electronically signed by Pawan Barbour 04-30-2025 8:12 PM Discharge Plan Visit Data Chief Complaint: Syncope Stated Complaint: SYNCOPE, HIT HEAD, DIZZY, PAUL ED Provider: Mo Curran Discharge Problem: Syncope, Head injury, Nausea & vomiting, Dizziness Patient Disposition: Being Evaluated by Hospitalist Condition: Fair Forms Stand Alone Forms: [facility] Prescriptions Prescriptions: No Action escitalopram oxalate [Lexapro] 20 mg tablet 20 mg PO QAM 90 Days Qty: 90 4RF topiramate [Topamax] 100 mg tablet 100 mg PO HS Qty: 90 3RF buspirone 15 mg tablet 15 mg PO BID diazepam 5 mg tablet 5 mg PO DAILY PRN (Reason: muscle spasm) Qty: 30 0RF oxycodone 5 mg tablet 10 mg PO Q8H PRN (Reason: pain) Qty: 60 0RF Aimovig Autoinjector 140 mg/mL auto-injector 140 mg subcut MONTHLY Qty: 1 5RF melatonin 3 mg tablet 3 mg PO HS ondansetron 8 mg Tablet,Disintegrating 8 mg PO Q8H PRN (Reason: nausea and vomiting) Qty: 30 0RF hydroxyzine pamoate 25 mg Capsule 50 mg PO HS duloxetine [Cymbalta] 20 mg Capsule,Delayed Release(Dr/Ec) 20 mg PO QAM Qty: 30 0RF pantoprazole 40 mg tablet,delayed release (DR/EC) 40 mg PO DAILY Referrals Referrals: Silvana Mcgarry CRNP [Primary Care Provider] -
[2025-04-30] MEDS: ACETAMINOPHEN 1,000 MG/100 ML VIAL IV STA (19:38)
[2025-04-30] MEDS: SODIUM CHLORIDE 0.9% 500 ML IV SCH (19:38)
[2025-04-30] MEDS: ONDANSETRON INJ 2 MG/ML 2 ML VIAL IV STA (19:38)
[2025-04-30 19:51] LABS: Hematocrit (blood only) 39.8 % (37.0-47.0); Hemoglobin 13.6 g/dl (12.0-16.0); Immature Granulocytes # (auto) 0.00 K/uL (0.01-0.20); Immature Granulocytes % (auto) 0.0 %; Mean Corpuscular Hemoglobin 30.4 pg (25.0-34.0); Mean Corpuscular Volume 88.8 fL (80.0-100.0); Platelet Count 191 K/uL (130-400); RDW Standard Deviation 40.6 fL (36.4-46.3); Red Blood Count 4.48 M/uL (4.20-5.40); White Blood Count 4.48 K/ul (4.8-10.8)
[2025-04-30 20:10] LABS: Alanine Aminotransferase 6 U/L (7-52); Albumin Globulin Ratio 1.1 (0.9-2); Alkaline Phosphatase 56 U/L (34-104); Anion Gap 5 (3-11); Bilirubin,Total 0.6 mg/dl (0.2-1.0); Blood Urea Nitrogen 15 mg/dl (6-23); Calcium 9.1 mg/dl (8.6-10.3); Carbon Dioxide 25 mmol/L (21-32); Chloride 108 mmol/L (98-107); Creatinine Clr Calc Pharmacy 47.8 ml/min; Globulin 3.4 gm/dl (2.5-4.0); Glucose 99 mg/dl (70-99(Fasting)); Magnesium 2.0 mg/dl (1.7-2.4); Potassium 3.7 mmol/L (3.5-5.1); Sodium 138 mmol/L (136-145); Total Protein 7.3 gm/dl (6.0-8.3)
--- NOTE | 2025-04-30 20:13 | CT Scan Report ---
CT cervical spine without contrast Technique: Noncontrast axial images cervical spine. Coronal and sagittal reformatted images made available for review Comparison made to prior exam dated 11/10/2022 Findings: Vertebral bodies are normal in height and aligned without fracture or dislocation. No significant canal or foraminal stenosis Impression No acute osseous pathology. Electronically signed by Pawan Barbour 04-30-2025 8:12 PM
--- NOTE | 2025-04-30 20:13 | CT Scan Report ---
CT of the head without contrast Technique: Noncontrast axial images of the head. Coronal and sagittal reformatted images made available for review Comparison made to prior exam dated 10/06/2024 Findings:No acute intracranial hemorrhage. No acute transcortical infarct. No midline shift. Ventricles, sulci, cisterns within normal limits. Bone windows demonstrate no focal abnormality Impression Head CT negative for acute intracranial abnormality Electronically signed by Pawan Barbour 04-30-2025 8:12 PM
[2025-04-30 20:14] LABS: Pregnancy Test, Serum Negative (Negative)
[2025-04-30 20:26] LABS: Thyroid Stimulating Hormone 1.037 uIu/ml (0.300-4.500)
[2025-04-30] MEDS: KETOROLAC TROMETHAMINE 15 MG/ML VIAL IV ONE (21:41)
[2025-04-30] MEDS: PROMETHAZINE 12.5 MG/50.5 ML BAG IV STA (21:41)
[2025-04-30] MEDS: MoRPHine SULFATE 4 MG/ML 1 ML CARP\\VIAL IV STA (23:40)
--- NOTE | 2025-04-30 23:53 | XRay Report ---
Exam(s): XR CXR 1 VIEW EXAM: XR Chest, 1 View CLINICAL HISTORY: Reason for exam: fall. TECHNIQUE: Frontal view of the chest. COMPARISON: No relevant prior studies available. FINDINGS: Lungs: Unremarkable. No consolidation. Pleural space: Unremarkable. No pneumothorax. Heart: Unremarkable. No cardiomegaly. Mediastinum: Unremarkable. Normal mediastinal contour. Bones/joints: Unremarkable. No acute fracture. IMPRESSION: Normal chest x-ray. Electronically signed by: Pawan Barbour MD 04/30/25 23:52 PM
[2025-04-30 23:58] LABS: Appearance Urine Cloudy (Clear); Glucose Urine UA Negative (Negative)
[2025-05-01 00:19] LABS: Amphetamines+Metham, Urine Neg (Neg); MDMA (Ecstacy), Urine Neg (Neg); Marijuana, Urine Neg (Neg)
[2025-05-01 00:26] LABS: Epithelial Cell Urine >20 /hpf (0-2)
[2025-05-01] MEDS: SODIUM CHLORIDE 0.9% 1,000 ML IV ONE (00:41)
--- NOTE | 2025-05-01 01:24 | History & Physical Report ---
Date of Service May 01, 2025 Assessment & Plan (1) Syncope: (2) Nausea & vomiting: (3) Diarrhea: Plan 44-year-old female PMHx gastric sleeve s/p G-tube (01/04), GBS, bipolar 1 disorder, anxiety, depression, GERD, GI malformation s/p decompression (2014), MVP, and prior DVT (2006) presenting for syncopal episode at home the night of arrival with vomiting x 3 days. ED evaluation reveals CBC with very mild leukopenia at 4.48, stable H&H; CMP chloride 108, AST/ALT 10/6; troponin <2.3; TSH 1.037; hCG negative; UA without infection; toxicology positive for opioids and benzodiazepines (patient on these medications at home); cervical spine CT, CXR, head CT WNL; EKG NSR, low voltage QRS at 77 bpm.; Provided with 1.5 L NSS, promethazine 12.5 mg, ondansetron 4 mg IV, morphine 4 mg IV, ketorolac 10 mg IV, and acetaminophen 1 g IV in ED. 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 Very decreased oral intake over the past few days, suspect that this is the cause of syncope and presyncope. No additional symptoms of chest pain or neuro deficits. Will manage vomiting and rehydration. - CBC mild leukopenia 4.48; CMP unremarkable with exception AST/ALT 10/6; TSH 1.037 - CBC am - EKG NSR, Trop < 2.3 - CXR WNL - CT head, C spine CT no acute findings - Fall precautions - Zofran prn N/V - Oxycodone prn pain, can adjust to morphine IV if needed - IVF LR @ 125 mL/hr #Diarrhea Ongoing and chronic, per patient. Did see PCP the day of arrival, labs were ordered, possibly related to SSRI or recent abx use. Mild epigastric tenderness, as expected with recent vomiting. - CBC mild leukopenia 4/48; CMP WNL; Lipase WNL - No imaging at admission - Stool studies pending - IVF as above #Back pain- Ongoing, no worsening symptoms at present; Diazepam prn (spasms), oxycodone prn (pain); PDMP independently reviewed at admission - continue #Psych- Buspirone, duloxetine, escitalopram, hydroxyzine, topiramate - continue #GERD- Pantoprazole - continue Dispo: Obs, med/sx VTE Prophylaxis: SCDs This document was dictated utilizing Wercker. Please excuse any grammatical errors that may be secondary to use of this software. Admission and Anticipated Discharge Date Admission Date: 05/01/2025 History of Present Illness Chief Complaint: Syncope, vomiting Primary Care Provider: LUIS EDUARDO Bower 44-year-old female PMHx gastric sleeve s/p G-tube (01/04), GBS, bipolar 1 disorder, anxiety, depression, GERD, GI malformation s/p decompression (2014), MVP, and prior DVT (2006) presenting for syncopal episode at home the night of arrival with vomiting x 3 days. 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 She is not having any abdominal pain, but does have chronic diarrhea. She states that when she was in her living room sitting with her feet up the day of arrival, her had brought in her dinner to her and she tried to take 2 bites of the food and immediately threw this up, and then took 1 sip of liquid and threw this up as well. She states that she remembers she was on the ground. She was covered in a blanket so she states her took her blanket from her and helped her. She did hit her head, complaining of 6 out of 10 pain above her right eyebrow. Has been feeling lightheaded for 3 days. Has a history of syncopal events approximately 1 year prior, which were following her gastric sleeve surgery (completed by Dr. Ceja at [facility]). Patient states that she has been having a lot of doctor appointments and PT appointments since being discharged in the hospital for GBS and states that she may has been overdoing it. Has not been able to tolerate oral intake for approximately 3 days. Denies being around anyone with similar symptoms. Denies chest pain, SOB, palpitations, abdominal pain, constipation, numbness/tingling, fever/chills, URI symptoms, LUTS. ED evaluation reveals CBC with very mild leukopenia at 4.48, stable H&H; CMP chloride 108, AST/ALT 10/6; troponin <2.3; TSH 1.037; hCG negative; UA without infection; toxicology positive for opioids and benzodiazepines (patient on these medications at home); cervical spine CT, CXR, head CT WNL; EKG NSR, low voltage QRS at 77 bpm.; Provided with 1.5 L NSS, promethazine 12.5 mg, ondansetron 4 mg IV, morphine 4 mg IV, ketorolac 10 mg IV, and acetaminophen 1 g IV in ED. Please see Dr. Reyes's attestation for adjustments/additions to treatment plan. Allergies Allergy/AdvReac Type Severity Reaction Status Date / Time Fish Containing Products Allergy Intermediate Rash Verified 04/30/25 09:34 shellfish derived AdvReac Severe PASSED OUT Verified 04/30/25 09:34 Home Medications Medication Instructions Recorded Confirmed Type buspirone 15 mg tablet 15 mg PO BID 07/15/22 05/01/25 History escitalopram oxalate 20 mg tablet 20 mg PO QAM 90 days #90 tabs 03/28/24 05/01/25 Rx (Lexapro) ondansetron 8 mg disintegrating 8 mg PO Q8H PRN nausea and 09/04/24 05/01/25 Rx tablet vomiting #30 tabs hydroxyzine pamoate 25 mg capsule 50 mg PO HS 11/24/24 05/01/25 History duloxetine 20 mg capsule,delayed 20 mg PO QAM #30 caps 12/05/24 05/01/25 Rx release (Cymbalta) topiramate 100 mg tablet (Topamax) 100 mg PO HS #90 tabs 03/20/25 05/01/25 Rx erenumab-aooe 140 mg/mL 140 mg subcut MONTHLY #1 mL 04/10/25 05/01/25 Rx subcutaneous auto-injector (Aimovig Autoinjector) diazepam 5 mg tablet 5 mg PO DAILY PRN muscle spasm #30 04/12/25 05/01/25 Rx tabs oxycodone 5 mg tablet 10 mg (2 x 5 mg) PO Q8H PRN pain 04/12/25 05/01/25 Rx #60 tabs melatonin 3 mg tablet 3 mg PO HS sleep 04/30/25 05/01/25 History pantoprazole 40 mg tablet,delayed 40 mg PO DAILY 04/30/25 05/01/25 History release Past Med/Surg History Problem List (Updated 05/01/25 @ 02:03 by Reji Fair PA-C) Diarrhea Dizziness (Acute) Nausea & vomiting (Acute) Head injury (Acute) Syncope (Acute) Chronic diarrhea Lumbosacral radiculopathy Thiamine deficiency, unspecified Chiari I malformation Bilateral leg numbness Bilateral leg weakness Intractable back pain Cervical radiculopathy Adnexal cyst Paresthesia of left upper extremity Intermittent palpitations Allergic rhinitis due to pollen Snoring Hypersomnia CASSI III (cervical intraepithelial neoplasia III) History of claustrophobia Plantar fasciitis Mixed hyperlipidemia Binge eating disorder Metabolic syndrome Carpal tunnel syndrome, right Morbid obesity Strain of right biceps tendon Migraine without aura, not intractable, without status migrainosus Eustachian tube dysfunction Mitral valve prolapse syndrome (Acute) Vitamin B12 deficiency (Acute) Vitamin D deficiency (Acute) Degenerative disc disease Medical History Drainage from gastrostomy tube site Pain around PEG tube site Anxiety Depression Abdominal pain Bipolar I disorder, single manic episode GERD (gastroesophageal reflux disease) Hypertriglyceridemia Chiari malformation s/p decompression (~2014) No issues since per 05/12/[address] "There has been prior posterior suboccipital decompression. There is persistent caudal positioning of the cerebellar tonsils consistent with Chiari I malformation. 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 with MV on 12/2022 ECHO Hx of Lyme disease 2014 - antibiotic completed Hx of ectopic Anxiety and depression Morbid obesity Pre-diabetes s/p gastric sleeve procedure - no longer an issue GERD (gastroesophageal reflux disease) controlled, stable per pt Post traumatic stress disorder Deep vein thrombosis Around 2006 (LUE- unknown etiology) Headache h/o post spinal tap PAUL and generalized weakness in 2018 per 09/2020 [facility] note Surgical History Hx laparoscopic cholecystectomy Status post sleeve gastrectomy 12/22/23 @ [facility] Myriam Villanueva Hx of hysterectomy History of carpal tunnel release Right History of MRI Right elbow MRI (02/13/22): MAC at [facility]. No issues noted per post-op anesthesia progress note. History of surgery Chiari Malformation repair (~2014; [facility]) Hx of foot surgery R/L repair of plantar fasciitis and removal of heel spurs History of laparoscopy History of tooth extraction Family History Grandmother (Paternal) Family history of diabetes mellitus Family/Other Chiari malformation Venous thrombosis Grandmother Stroke Mother Hypothyroidism Father Mitral valve prolapse Grandmother (Maternal) Breast cancer Denies family history of Ovarian cancer Colorectal cancer Social History Smoking Status: Never smoker Second Hand Exposure: No; Do You Dip or Chew Tobacco: No; Hx Alcohol Use: No Hx Substance Use: No Preferred Language: [place] Communication Ability: Effective Radiation Therapist Required: No Beliefs That Will Affect Care: None marital status: Current Living Situation: Spouse Current Living Situation Comment: lives with the and children current occupational status: employed 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 Feels Safe at Home: Yes Diet: low carbohydrate and other Diet Comment: high protein Physical Activity Frequency: 5-6 Times per Week Assistive Devices: None Review of Systems Review of Systems: All systems reviewed & are unremarkable except as noted in Subjective Physical Exam Physical Exam: General: No acute distress Skin: Warm and dry; erythematous skin changes to face Head: Normocephalic, atraumatic Eyes: PERRL, conjunctivae clear, sclera non-icteric ENT: External ear and ear canal without swelling; nose atraumatic; good dentition, tongue normal appearance, pharynx normal Neck: Supple, no LAD Cardio: RRR, no M/G/R, S1 and S2 normal Resp: No respiratory distress, Lungs CTA in all lobes bilaterally, no wheezes, rales, or rhonchi Abdomen: Soft, symmetric, mild tenderness to epigastric region; No masses or hepatosplenomegaly; Bowel sounds normoactive MSK: No deformities; pulses palpable and equal; no edema. Neuro: Awake, alert; Sensation intact bilaterally; CN grossly intact Psych: Appropriate mood and affect Results & Data Results & Data Vital Signs (Past 12 Hours) Vital Signs Temp Pulse Pulse Resp BP BP Pulse Ox 05/01/25 00:00 88 16 93/57 L 97 04/30/25 23:25 92 H 04/30/25 23:00 76 18 108/69 98 04/30/25 21:15 37 C 82 20 104/74 100 04/30/25 20:51 85 13 97 04/30/25 20:30 80 12 105/69 93 04/30/25 20:00 80 15 103/69 98 04/30/25 19:32 75 20 97 04/30/25 19:31 79 04/30/25 19:28 79 115/54 L 04/30/25 19:28 97 04/30/25 19:28 37.1 C 79 16 115/54 L 97 O2 Del Method 05/01/25 00:00 04/30/25 23:25 04/30/25 23:00 Room Air 04/30/25 21:15 Room Air 04/30/25 20:51 04/30/25 20:30 04/30/25 20:00 04/30/25 19:32 Room Air 04/30/25 19:31 04/30/25 19:28 04/30/25 19:28 Room Air 04/30/25 19:28 Room Air Laboratory Results 04/30/25 23:31 Urine Culture - Pending Urine,Clean Catch 04/30/25 04/30/25 23:31 19:30 WBC 4.48 L RBC 4.48 Hgb 13.6 Hct 39.8 MCV 88.8 MCH 30.4 MCHC 34.2 RDW Std Deviation 40.6 RDW Coeff of Zuleyma 12.5 Plt Count 191 MPV 10.7 Immature Gran % (Auto) 0.0 Neut % (Auto) 48.9 Lymph % (Auto) 43.5 [place] % (Auto) 4.7 Eos % (Auto) 2.0 Baso % (Auto) 0.9 Neut # (Auto) 2.19 Lymph # (Auto) 1.95 [place] # (Auto) 0.21 Eos # (Auto) 0.09 Baso # (Auto) 0.04 Immature Gran # (Auto) 0.00 L Sodium 138 Potassium 3.7 Chloride 108 H Carbon Dioxide 25 Anion Gap 5 BUN 15 Creatinine 1.20 Est Cr Clr Drug Dosing 47.8 eGFR 57.60 BUN/Creatinine Ratio 12.5 Glucose 99 Calcium 9.1 Magnesium 2.0 Total Bilirubin 0.6 AST 10 L ALT 6 L Alkaline Phosphatase 56 Troponin I High Sens < 2.3 Total Protein 7.3 Albumin 3.9 Globulin 3.4 Albumin/Globulin Ratio 1.1 TSH 1.037 HCG, Qual Negative Urine Color Yellow Urine Appearance Cloudy A Urine pH 6.0 Ur Specific [place]raine 1.025 Urine Protein Negative Urine Glucose (UA) Negative Urine Ketones Negative Urine Blood Negative Urine Nitrite Negative Urine Bilirubin Negative Urine Urobilinogen Negative Ur Leukocyte Esterase Negative Urine RBC 0-2 Urine WBC 0-5 Ur Epithelial Cells >20 H Urine Bacteria None Seen Urine Yeast Present A Urine Comment Urine Opiates Screen Pos H Ur Methadone, Qual Neg Urine Fentanyl Screen Neg Urine Barbiturates Neg Ur Phencyclidine (PCP) Neg U Amphetamin/Meth Scrn Neg MDMA (Ecstasy) Screen Neg U Benzodiazepines Scrn Pos H Ur Cocaine Metabolite Neg U Marijuana (THC) Screen Neg Diagnostic Findings Cervical Spine CT 04/30/25 19:33 CT cervical spine without contrast Technique: Noncontrast axial images cervical spine. Coronal and sagittal reformatted images made available for review Comparison made to prior exam dated 11/10/2022 Findings: Vertebral bodies are normal in height and aligned without fracture or dislocation. No significant canal or foraminal stenosis Impression No acute osseous pathology. Electronically signed by Pawan Barbour 04-30-2025 8:12 PM Chest X-Ray 04/30/25 19:33 Exam(s): XR CXR 1 VIEW EXAM: XR Chest, 1 View CLINICAL HISTORY: Reason for exam: fall. TECHNIQUE: Frontal view of the chest. COMPARISON: No relevant prior studies available. FINDINGS: Lungs: Unremarkable. No consolidation. Pleural space: Unremarkable. No pneumothorax. Heart: Unremarkable. No cardiomegaly. Mediastinum: Unremarkable. Normal mediastinal contour. Bones/joints: Unremarkable. No acute fracture. IMPRESSION: Normal chest x-ray. Electronically signed by: Pawan aBrbour MD 04/30/25 23:[address] 04/30/25 19:33 CT of the head without contrast Technique: Noncontrast axial images of the head. Coronal and sagittal reformatted images made available for review Comparison made to prior exam dated 10/06/2024 Findings:No acute intracranial hemorrhage. No acute transcortical infarct. No midline shift. Ventricles, sulci, cisterns within normal limits. Bone windows demonstrate no focal abnormality Impression Head CT negative for acute intracranial abnormality Electronically signed by Pawan Barbour 04-30-2025 8:12 PM Medications Administered 1.5 mL NSS Promethazine 12 mL IV Ondansetron 4 mg IV Morphine 4 mg IV Ketorolac 10 IV Acetaminophen 1 g IV ECG Additional Comments: NSR, low voltage QRS 77 bpm, LA 130, QRS 70, QT/QTc 374/423, PRT 59/42/40 Code Status & VTE Plan Code Status Full PG Care Time/CCT Total # of Minutes Spent Total Time Spent with Patient: Total time spent is greater than 50% in coordination of care (as documented) at patient's floor/unit and/or counseling patient: Coding Level of Care Code 45497 INT INP/OBS CARE 3/75MIN Diagnoses Syncope R55 Nausea & vomiting R11.2 Diarrhea R19.7
[2025-05-01] MEDS ORDERED: ONDANSETRON INJ 2 MG/ML 2 ML VIAL IV PRN (02:03)
[2025-05-01] MEDS ORDERED: POLYETHYLENE (MIRALAX) 17 GM PACK PO PRN (02:53)
[2025-05-01] MEDS ORDERED: MELATONIN 3 MG TAB PO PRN (02:53)
[2025-05-01] MEDS: LACTATED RINGER'S 1,000 ML IV SCH (03:00)
[2025-05-01] MEDS: ONDANSETRON INJ 2 MG/ML 2 ML VIAL IV PRN (05:31)
[2025-05-01 06:12] LABS: Hematocrit (blood only) 33.7 % (37.0-47.0); Hemoglobin 11.2 g/dl (12.0-16.0); Mean Corpuscular Hemoglobin 29.9 pg (25.0-34.0); Mean Corpuscular Volume 90.1 fL (80.0-100.0); Platelet Count 146 K/uL (130-400); RDW Standard Deviation 41.2 fL (36.4-46.3); Red Blood Count 3.74 M/uL (4.20-5.40); White Blood Count 4.15 K/ul (4.8-10.8)
[2025-05-01 06:27] LABS: Anion Gap 3.0 (3-11); Blood Urea Nitrogen 15.0 mg/dl (6-23); Calcium 8.3 mg/dl (8.6-10.3); Carbon Dioxide 25.0 mmol/L (21-32); Chloride 112.0 mmol/L (98-107); Creatinine Clr Calc Pharmacy 47.8 ml/min; Glucose 80.0 mg/dl (70-99(Fasting)); Potassium 3.5 mmol/L (3.5-5.1); Sodium 140.0 mmol/L (136-145)
--- NOTE | 2025-05-01 09:22 | XRay Report ---
KUB HISTORY: eval stool burden COMPARISON STUDY: 04/30/2025 FINDINGS: Stable right upper quadrant surgical clips and surgical suture at the left upper quadrant. There is mild retained stool. No bowel obstruction seen. No gross free air. IMPRESSION: No acute findings seen. ACT 112: Negative or not required by law. The above report was generated using voice recognition software. It may contain grammatical, syntax o r spelling errors. Electronically signed by: Keyshawn Cole M.D. 05/01/2025 9:21 AM
[2025-05-01] MEDS: ESCITALOPRAM OXALATE 20 MG TAB PO SCH (09:57)
[2025-05-01] MEDS: busPIRone 15 MG TAB PO SCH (09:57)
[2025-05-01] MEDS: PROMETHAZINE 12.5 MG/50.5 ML BAG IV STA (09:58)
[2025-05-01] MEDS: ACETAMINOPHEN 325 MG TAB PO PRN (12:01)
--- NOTE | 2025-05-01 12:17 | Hospitalist Progress Note ---
Date of Service May 01, 2025 Assessment & Plan (1) Syncope: (2) Nausea & vomiting: (3) Diarrhea: Plan 44-year-old female PMHx gastric sleeve s/p G-tube (01/04), GBS, bipolar 1 disorder, anxiety, depression, GERD, GI malformation s/p decompression (2014), MVP, and prior DVT (2006) presenting for syncopal episode at home the night of arrival with vomiting x 3 days. initial evaluation with cervical spine CT, CXR, head CT no acute findings; EKG NSR, low voltage QRS at 77 bpm. 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 Very decreased oral intake over the past few days, suspect that this is the cause of syncope and presyncope. No additional symptoms of chest pain or neuro deficits. Will manage vomiting and rehydration. EKG NSR, Trop < 2.3. no transaminitis, kidney function within normal limits. TSH within normal limits we will continue IV fluids, decrease rate to 80 mL/h until p.o. intake improves Nausea: Zofran, has responded well to Phenergan prn check orthostatic vital signs, consider holter monitor #Diarrhea Ongoing and chronic, per patient. Did see PCP the day of arrival, labs were ordered, possibly related to SSRI or recent abx use. Lexapro is not new. No sick contacts or recent travel. CMP WNL; Lipase WNL . KUB showing mild stool retention Stool studies pending - no bm since admission #Back pain- Ongoing, no worsening symptoms at present; Diazepam prn (spasms), oxycodone prn (pain); PDMP independently reviewed at admission - continue #Psych- Buspirone, duloxetine, escitalopram, hydroxyzine, topiramate - continue #GERD- Pantoprazole - continue Dispo: cotninued inpatient stay, advancing diet and pain control VTE Prophylaxis: SCDs Admission and Anticipated Discharge Date Admission Date: May 01, 2025 Supervising Physician Co-Signing Physician Notes Attending Attestation - Chart reviewed, care plan d/w ORTEGA Galo. I agree w/ the lennon components of her documentation. Augustine Chester MD Subjective patient seen lying in bed. Does report nausea this morning. States she has been able to tolerate solid foods at home, and the nausea was pretty abrupt onset. Denies fevers and chills at home. No sick contacts. Has not had any bowel movements since she has arrived to the hospital. Does not recall passing out. Review of Systems Review of Systems: All systems reviewed & are unremarkable except as noted in Subjective Physical Exam Physical Exam: General: No acute distress Skin: Warm and dry; erythematous skin changes to face Head: Normocephalic, atraumatic Eyes: PERRL, conjunctivae clear, sclera non-icteric Cardio: RRR, no M/G/R, S1 and S2 normal Resp: No respiratory distress, Lungs CTA in all lobes bilaterally, no wheezes, rales, or rhonchi Abdomen: Soft, symmetric, mild tenderness Generally; No masses or hepatosplenomegaly; Bowel sounds normal Neuro: A&O x 3, moves all extremities Results & Data Results & Data Vital Signs (Past 12 Hours) Vital Signs Temp Pulse Pulse Pulse Resp BP BP 05/01/25 07:23 97.7 F 75 16 95/64 L 05/01/25 03:02 98.2 F 66 18 05/01/25 02:19 71 18 93/67 L 05/01/25 02:00 71 18 BP Pulse Ox O2 Del Method 05/01/25 07:23 99 Room Air 05/01/25 03:02 98/67 L 99 Room Air 05/01/25 02:19 96 Room Air 05/01/25 02:00 93/67 L 97 Room Air Laboratory Results CBC and chemistry reviewed PG Care Time/CCT Total # of Minutes Spent Total Time Spent with Patient: Total time spent is greater than 50% in coordination of care (as documented) at patient's floor/unit and/or counseling patient: Coding Level of Care Code None Diagnoses Syncope R55 Nausea & vomiting R11.2 Diarrhea R19.7
[2025-05-01] MEDS: TOPIRAMATE 100 MG TAB PO SCH (20:14)
[2025-05-02 08:38] LABS: Anion Gap 5.0 (3-11); Blood Urea Nitrogen 10.0 mg/dl (6-23); Calcium 8.5 mg/dl (8.6-10.3); Carbon Dioxide 25.0 mmol/L (21-32); Chloride 108.0 mmol/L (98-107); Creatinine Clr Calc Pharmacy 54.1 ml/min; Glucose 76.0 mg/dl (70-99(Fasting)); Magnesium 1.9 mg/dl (1.7-2.4); Potassium 3.7 mmol/L (3.5-5.1); Sodium 138.0 mmol/L (136-145)
[2025-05-02] MEDS: KETOROLAC TROMETHAMINE 15 MG/ML VIAL IV ONE (11:43)
[2025-05-02] MEDS: METOCLOPRAMIDE HCL INJ 5 MG/ML 2 ML VIAL IV STA (11:43)
[2025-05-02] MEDS: diphenhydrAMINE 50 MG/ML VIAL IV STA (11:43)
--- NOTE | 2025-05-02 11:53 | Hospitalist Progress Note ---
Date of Service May 02, 2025 Assessment & Plan (1) Syncope: (2) Nausea & vomiting: (3) Diarrhea: Plan 44-year-old female PMHx gastric sleeve s/p G-tube (01/04), GBS, bipolar 1 disorder, anxiety, depression, GERD, GI malformation s/p decompression (2014), MVP, and prior DVT (2006) presenting for syncopal episode at home the night of arrival with vomiting x 3 days. initial evaluation with cervical spine CT, CXR, head CT no acute findings; EKG NSR, low voltage QRS at 77 bpm. 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 Very decreased oral intake over the past few days, suspect that this is the cause of syncope and presyncope. No additional symptoms of chest pain or neuro deficits. Will manage vomiting and rehydration. EKG NSR, Trop < 2.3. no transaminitis, kidney function within normal limits. TSH within normal limits Continue IV fluids, decrease rate to 80 mL/h until p.o. intake improves check orthostatic vital signs, consider holter monitor will give migraine cocktail todayToradol, Reglan and Benadryl Will trial scheduled Reglan prior to meals to see if that improves her nausea, start with dinner okay to continue as needed Zofran #Nutritional Deficiencies was previously on folic acid, B1, B12 and vitamin D supplementation. These were continued at discharge from her last hospital stay but subsequently discharged from her last rehab stay. Bariatric surgeon had plan to recheck labs and then start supplements as needed. Check folate, iron panel, PTH, B1, B12 and vitamin D Resume folic acid, B1, B12 and vitamin D supplementation #Diarrhea Ongoing and chronic, per patient. Did see PCP the day of arrival, labs were ordered, possibly related to SSRI or recent abx use. Lexapro is not new. No sick contacts or recent travel. CMP WNL; Lipase WNL . KUB showing mild stool retention Stool studies pending - 1 bm since admission, not collected #Back pain- Ongoing, no worsening symptoms at present; Diazepam prn (spasms), oxycodone prn (pain); PDMP independently reviewed at admission - continue #Psych- Buspirone, duloxetine, escitalopram, hydroxyzine, topiramate - continue #GERD- Pantoprazole - continue Dispo: cotninued inpatient stay, advancing diet and pain control VTE Prophylaxis: SCDs Admission and Anticipated Discharge Date Admission Date: May 01, 2025 Subjective patient seen sitting up in bed. Reports that she has not been able to keep anything down due to nausea. Mild nausea at rest but worsening nausea with eating. However her main complaint today is more so her migraine, states that it feels slightly different than her normal migraine. It is right-sided and she does have sound sensitivity, with mild light sensitivity. She normally takes Nurtec, she does not have this with her. denies abdominal pain, did have 1 loose stool yesterday. She was able to show me her recent note from her bariatric surgeon, Dr. Ceja. That note reports that she was stopped on her vitamin supplements at rehab and that he was planning to recheck her levels and possibly restart her supplements. Patient reports that she is feeling quite fatigued Review of Systems Review of Systems: All systems reviewed & are unremarkable except as noted in Subjective Physical Exam Physical Exam: General: No acute distress Skin: Warm and dry; erythematous skin changes to face Head: Normocephalic, atraumatic Eyes: PERRL, conjunctivae clear, sclera non-icteric Cardio: RRR, no M/G/R, S1 and S2 normal Resp: No respiratory distress, Lungs CTA in all lobes bilaterally, no wheezes, rales, or rhonchi Abdomen: Soft, symmetric, mild tenderness Generally; No masses or hepatosplenomegaly; Bowel sounds normal Neuro: A&O x 3, moves all extremities Results & Data Results & Data Vital Signs (Past 12 Hours) Vital Signs Temp Pulse Resp BP Pulse Ox O2 Del Method 05/02/25 08:38 98.4 F 78 16 102/68 98 Room Air Laboratory Results CBC chemistry in a.m. cortisol reviewed PG Care Time/CCT Total # of Minutes Spent Total Time Spent with Patient: Total time spent is greater than 50% in coordination of care (as documented) at patient's floor/unit and/or counseling patient: Coding Level of Care Code 06268 SUB INP/OBS CARE 3/50MIN Diagnoses Syncope R55 Nausea & vomiting R11.2 Diarrhea R19.7
[2025-05-02 12:03] LABS: Iron 75.0 mcg/dl (35-150); Total Iron Binding Cap Calc 260.0 mcg/dl (250-450); Transferrin 186.0 mg/dl (200-360); Transferrin (FE) Percent Satur 29.0 % (15-50)
[2025-05-02 12:23] LABS: Ferritin 85.6 ng/ml (8-388)
[2025-05-02] MEDS: CYANOCOBALAMIN (B-12) 500 MCG TABLET PO SCH (13:02)
[2025-05-02] MEDS: THIAMINE HCL 100 MG TAB PO SCH (13:03)
[2025-05-02] MEDS: FOLIC ACID 400 MCG TAB PO SCH (13:03)
[2025-05-02 13:29] LABS: Adenovirus F 40/41 PCR Not Detected (NotDetected); Campylobacter PCR Not Detected (NotDetected); Enteroaggregative E.coli(EAEC) Not Detected (NotDetected); Shiga-like Toxin E.coli (STEC) Not Detected (NotDetected); Vibrio species PCR Not Detected (NotDetected)
[2025-05-02 15:44] LABS: Cdiff Toxin B Gene (2yr or >) Negative Cdiff Gene (Neg)
[2025-05-02] MEDS: RIMEGEPANT SULFATE 75 MG OD TAB PO PRN (16:33)
[2025-05-02] MEDS: METOCLOPRAMIDE HCL 5 MG TABLET PO SCH (16:33)
[2025-05-03] MEDS: CHOLECALCIFEROL 25 MCG (1000 UNITS) TAB PO SCH (08:27)
[2025-05-03] MEDS: NURTEC 75 MG PO STA (10:01)
--- NOTE | 2025-05-03 11:17 | Hospitalist Progress Note ---
Date of Service May 03, 2025 Assessment & Plan (1) Syncope: (2) Nausea & vomiting: (3) Diarrhea: Plan 44-year-old female PMHx gastric sleeve s/p G-tube (01/04), GBS, bipolar 1 disorder, anxiety, depression, GERD, GI malformation s/p decompression (2014), MVP, and prior DVT (2006) presenting for syncopal episode at home the night of arrival with vomiting x 3 days. initial evaluation with cervical spine CT, CXR, head CT no acute findings; EKG NSR, low voltage QRS at 77 bpm. 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 Very decreased oral intake over the past few days, suspect that this is the cause of syncope and presyncope. No additional symptoms of chest pain or neuro deficits. Will manage vomiting and rehydration. EKG NSR, Trop < 2.3. no transaminitis, kidney function within normal limits. TSH within normal limits we will continue IV fluids, decrease rate to 80 mL/h until p.o. intake improves Nausea: Zofran, has responded well to Phenergan prn vomiting only with meals - Reglan added TID before meals, ? psych component orthostaic vital signs negative. AM cortisol WNL. - reports lightheadedness from low BP - add midodrine TID #Diarrhea Ongoing and chronic, per patient. Did see PCP the day of arrival, labs were ordered, possibly related to SSRI or recent abx use. Lexapro is not new. No sick contacts or recent travel. CMP WNL; Lipase WNL . KUB showing mild stool retention Stool studies negative #Nutritional deficiencies reports her supplements were stopped after rehab and her GI surgeon was going to order labs to recheck and start Vit D low Vit B12/pth/ irons tudies WNL B1 pending Supplements resumed - could probably decrease B12 and folate #Back pain- Ongoing, no worsening symptoms at present; Diazepam prn (spasms), oxycodone prn (pain); PDMP independently reviewed at admission - continue #Psych- Buspirone, duloxetine, escitalopram, hydroxyzine, topiramate - continue #GERD- Pantoprazole - continue Dispo: continued inpatient stay, advancing diet and pain control VTE Prophylaxis: SCDs Admission and Anticipated Discharge Date Admission Date: May 02, 2025 Subjective Patient seen lying in bed, still having vomiting, mainly the food she just ate. Not vomiting outside of meal time. nauseous otherwise feels like the reglan would help if given sooner loose stools still concerns about her blood pressure - does report feeling light headed and dizzy Review of Systems Review of Systems: All systems reviewed & are unremarkable except as noted in Subjective Physical Exam Physical Exam: General: No acute distress Skin: Warm and dry; erythematous skin changes to face Head: Normocephalic, atraumatic Eyes: PERRL, conjunctivae clear, sclera non-icteric Cardio: RRR, no M/G/R, S1 and S2 normal Resp: No respiratory distress, Lungs CTA in all lobes bilaterally, no wheezes, rales, or rhonchi Abdomen: Soft, symmetric, mild tenderness Generally; No masses or hepatosplenomegaly; Bowel sounds normal Neuro: A&O x 3, moves all extremities Results & Data Results & Data Vital Signs (Past 12 Hours) Vital Signs Temp Pulse Resp BP Pulse Ox O2 Del Method 05/03/25 08:14 98.6 F 102 H 16 97/64 L 98 Room Air Laboratory Results iron studies, Vit D, folate, PTh reviewed and B12 reviewed PG Care Time/CCT Total # of Minutes Spent Total Time Spent with Patient: Total time spent is greater than 50% in coordination of care (as documented) at patient's floor/unit and/or counseling patient: Coding Level of Care Code 46259 SUB INP/OBS CARE 2/35MIN Diagnoses Syncope R55 Nausea & vomiting R11.2 Diarrhea R19.7
[2025-05-03] MEDS: MIDODRINE HCL 2.5 MG TAB PO SCH (12:05)
[2025-05-04] MEDS ORDERED: LOPERAMIDE HCL 2 MG CAP PO PRN (11:12)
--- NOTE | 2025-05-04 11:18 | Hospitalist Progress Note ---
Date of Service May 04, 2025 Assessment & Plan (1) Syncope: (2) Nausea & vomiting: (3) Diarrhea: Plan 44-year-old female PMHx gastric sleeve s/p G-tube (01/04), GBS, bipolar 1 disorder, anxiety, depression, GERD, GI malformation s/p decompression (2014), MVP, and prior DVT (2006) presenting for syncopal episode at home the night of arrival with vomiting x 3 days. initial evaluation with cervical spine CT, CXR, head CT no acute findings; EKG NSR, low voltage QRS at 77 bpm. 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 Very decreased oral intake over the past few days, suspect that this is the cause of syncope and presyncope. No additional symptoms of chest pain or neuro deficits. Will manage vomiting and rehydration. EKG NSR, Trop < 2.3. no transaminitis, kidney function within normal limits. TSH within normal limits Nausea: Zofran, has responded well to Phenergan prn vomiting only with meals - Reglan added TID before meals, ? psych component orthostaic vital signs negative. AM cortisol WNL. - reports lightheadedness from low BP - add midodrine TID. Improving symptomatically - 1L IVF given today #Headache Hx of migraines, ? concussion component, hit her head with fall 1g IV mag today, PRN toradol max 4 doses with hx of gastric sleeve stop oxycodone for headache - not helping #Diarrhea Ongoing and chronic, per patient. Did see PCP the day of arrival, labs were ordered, possibly related to SSRI or recent abx use. Lexapro is not new. No sick contacts or recent travel. CMP WNL; Lipase WNL . KUB showing mild stool retention Stool studies negative add Imodium #Nutritional deficiencies reports her supplements were stopped after rehab and her GI surgeon was going to order labs to recheck and start Vit D low Vit B12/pth/ irons tudies WNL B1 pending Supplements resumed - could probably decrease B12 and folate #Back pain- Ongoing, no worsening symptoms at present; Diazepam prn (spasms), oxycodone prn (pain); PDMP independently reviewed at admission - continue #Psych- Buspirone, duloxetine, escitalopram, hydroxyzine, topiramate - continue #GERD- Pantoprazole - continue Dispo: continued inpatient stay, advancing diet and pain control VTE Prophylaxis: SCDs Admission and Anticipated Discharge Date Admission Date: May 02, 2025 Subjective patient starting to feel slightly better - nausea between meals has improved, vomiting after breakfast but not as much, wanting to try solid food tomorow for breakfast still with headache - oxycodone is not helping loose stools continued. no abd pain some lightheadedness Review of Systems Review of Systems: All systems reviewed & are unremarkable except as noted in Subjective Physical Exam Physical Exam: General: No acute distress Skin: Warm and dry; erythematous skin changes to face Head: Normocephalic, atraumatic Eyes: PERRL, conjunctivae clear, sclera non-icteric Cardio: RRR, no M/G/R, S1 and S2 normal Resp: No respiratory distress, Lungs CTA in all lobes bilaterally, no wheezes, rales, or rhonchi Abdomen: Soft, symmetric, mild tenderness Generally; No masses or hepatosple nomegaly; Bowel sounds normal Neuro: A&O x 3, moves all extremities Results & Data Results & Data Vital Signs (Past 12 Hours) Vital Signs Temp Pulse Resp BP Pulse Ox O2 Del Method 05/04/25 08:33 98.1 F 80 17 97/62 L 98 Room Air 05/04/25 07:30 Room Air PG Care Time/CCT Total # of Minutes Spent Total Time Spent with Patient: Total time spent is greater than 50% in coordination of care (as documented) at patient's floor/unit and/or counseling patient: Coding Level of Care Code 60689 SUB INP/OBS CARE 2/35MIN Diagnoses Syncope R55 Nausea & vomiting R11.2 Diarrhea R19.7
[2025-05-04] MEDS: D5W AND 1/2NSS 1,000 ML IV SCH (11:30)
[2025-05-04] MEDS: MAGNESIUM SULFATE / D5W 1 GM/100 ML BAG IV ONE (11:30)
[2025-05-04] MEDS: KETOROLAC TROMETHAMINE 15 MG/ML VIAL IV PRN (16:05)
[2025-05-05 08:08] LABS: Hematocrit (blood only) 32.2 % (37.0-47.0); Hemoglobin 11.3 g/dl (12.0-16.0); Mean Corpuscular Hemoglobin 31.1 pg (25.0-34.0); Mean Corpuscular Volume 88.7 fL (80.0-100.0); Platelet Count 156 K/uL (130-400); RDW Standard Deviation 40.7 fL (36.4-46.3); Red Blood Count 3.63 M/uL (4.20-5.40); White Blood Count 3.65 K/ul (4.8-10.8)
[2025-05-05 08:24] LABS: Anion Gap 4.0 (3-11); Blood Urea Nitrogen 6.0 mg/dl (6-23); Calcium 8.2 mg/dl (8.6-10.3); Carbon Dioxide 21.0 mmol/L (21-32); Chloride 113.0 mmol/L (98-107); Creatinine Clr Calc Pharmacy 51.2 ml/min; Glucose 86.0 mg/dl (70-99(Fasting)); Potassium 3.9 mmol/L (3.5-5.1); Sodium 138.0 mmol/L (136-145)
--- NOTE | 2025-05-05 09:58 | Electrocardiogram Report ---
Test Reason : Blood Pressure : */* mmHG Vent. Rate : 77 BPM Atrial Rate : 77 BPM P-R Int : 130 ms QRS Dur : 70 ms QT Int : 374 ms P-R-T Axes : 59 42 40 degrees QTcB Int : 423 ms Normal sinus rhythm Low voltage QRS Borderline ECG When compared with ECG of 06-Oct-2024 18:34, No significant change was found Confirmed by Vamshi Hughes ([id number]) on 05/05/2025 9:58:36 AM Referred By: REFERRED SELF Confirmed By: Vamshi Hughes
--- NOTE | 2025-05-05 10:09 | Hospitalist Progress Note ---
Date of Service May 05, 2025 Assessment & Plan (1) Syncope: Plan: -Likely 2nd to volume depletion from dehydration -symptoms improved with IVF (2) Nausea & vomiting: Plan: -h/o gastric sleeve -patient states this has been ongoing issue -no GI evaluation in the past -will consult GI -con't antiemetic medications (3) Diarrhea: Plan: -chronic -stool studies negative -GI consulted (4) Bipolar 1 disorder: Plan: -topiramate (5) Anxiety and depression: Plan: Buspirone, duloxetine, escitalopram, hydoxazine Plan 44-year-old female PMHx gastric sleeve s/p G-tube (01/04), GBS, bipolar 1 disorder, anxiety, depression, GERD, GI malformation s/p decompression (2014), MVP, and prior DVT (2006) presenting for syncopal episode at home the night of a rrival with vomiting x 3 days. initial evaluation with cervical spine CT, CXR, head CT no acute findings; EKG NSR, low voltage QRS at 77 bpm. admitted for IV fluids and further workup Admission and Anticipated Discharge Date Admission Date: May 02, 2025 Subjective Pt still complaining of nausea and diarrhea. Review of Systems Review of Systems: CONST: Negative for fever, body aches and chills. HENT: Negative for neck pain/stiffness, headache, congestion, sore throat, swelling. EYES: Negative for discharge/pain or vision changes. RESP: Negative for cough/hemoptysis and shortness of breath. CV: Negative chest pain, difficulty breathing, palpitations. ABD: Negative pain, +nausea, vomiting, + diarrhea. : Negative increase frequency, dysuria, blood in urine or stool. MUSC: Negative for muscle aches, edema. SKIN: Negative rash, lesions/sores. NEURO: Negative headache, dizziness, weakness. Physical Exam Physical Exam: GENERAL APPEARANCE NAD, activity normal for age, well developed/ well nourished, no cyanosis, pallor, or diaphoresis. EYES lids/conjunctiva normal. EARS/NOSE/THROAT Mucous membranes moist, nares normal, lips/teeth normal uvula midline without oral pharyngeal erythema, exudate or swelling TMs normal bilaterally. No lymphangitis/lymphedema. HEAD/NECK normocephalic atraumatic, no facial trauma, neck is supple. RESPIRATORY respiratory effort normal, speaks in full sentences, no tripod position, no accessory muscle use. Lungs clear to auscultation without rhonchi, wheezes, rales CARDIAC Regular rate and rhythm, no edema. ABDOMINAL Soft, ND/NT. No evidence of fluid wave. No pulsatile masses on exam, rebound tenderness, Jorgensen sign or pain over Mcburney's point. MUSCLES/EXTREMITIES No abnormal range of motion, no swelling. SKIN Warm, pink and dry. No rashes, dermatoses, petechiae or lesions. NEUROLOGICAL Speech is clear and appropriate. Normal level of consciousness. Gait and coordination are normal. 5/5 strength in all extremities. PSYCH Normal mood and affect. Judgement/competence is appropriate Results & Data Results & Data Vital Signs (Past 12 Hours) Vital Signs Temp Pulse Resp BP Pulse Ox O2 Del Method 05/05/25 08:04 37.3 C 74 16 84/52 L 97 Room Air 05/05/25 00:05 37.0 C 67 16 94/61 L 97 Room Air PG Care Time/CCT Total # of Minutes Spent Total Time Spent with Patient: Total time spent is greater than 50% in coordination of care (as documented) at patient's floor/unit and/or counseling patient: Coding Level of Care Code 59698 SUB INP/OBS CARE 2/35MIN Diagnoses Syncope R55 Nausea & vomiting R11.2 Diarrhea R19.7 Bipolar 1 disorder F31.9 Anxiety and depression F41.9; F32.A
--- NOTE | 2025-05-05 14:03 | Gastrointestinal Consultation ---
Date of Consultation May 05, 2025 Assessment & Plan (1) H/O gastric sleeve: GI issues post gastric sleeve. Imaging studies do not suggest stenosis or kinking of her sleeve. She seems to tolerate frequent smaller meals. There is rapid gastric emptying on nuclear medicine study may benefit from a dietary consult and antidumping diet. Dumping more common with Karly-en-Y gastrojejunostomy's though with her gastric emptying study should consider. Fat malabsorption can occur. Should check fecal elastase. Diarrhea after cholecystectomy fairly common. Trial of cholestyramine. Patient has been referred to [facility]. Seems reasonable that she should continue with GI follow-up in [place] where her surgeon is so they can work in conjunction (2) Nausea & vomiting: (3) Diarrhea: Stool testing negative History of Present Illness Reason for Consultation: Nausea vomiting diarrhea Attending Physician: Piter Bourne MD History of Present Illness 44-year-old female with a history of gastric sleeve back in 424. This has been complicated by GI problems including nausea and vomiting and diarrhea. After workup she eventually had a PEG put in this was only in a month and was excellently it is dislodged. She states she can eat now frequent smaller meals. She does stay away from pops off drinks carbonated beverages high fructose corn syrup lactose. Please may aggravate diarrhea and dumping. She feels her main complaint is the diarrhea she will go 3-4 times per day despite Imodium. She did have a cholecystectomy done earlier this year. She has not been tried on cholestyramine for postcholecystectomy diarrhea. I do not see a check for fat malabsorption. Or TTG levels to exclude celiac. She has had upper GI series to evaluate for sleeve dysfunction. There is no evidence of stenosis of her pouch or kinking. Gastric emptying study did suggest rapid emptying. Of note vitamin studies have been normal and a.m. cortisol was in normal range. Allergies Allergy/AdvReac Type Severity Reaction Status Date / Time Fish Containing Products Allergy Intermediate Rash Verified 04/30/25 09:34 shellfish derived AdvReac Severe PASSED OUT Verified 04/30/25 09:34 Home Medications Medication Instructions Recorded Confirmed Type buspirone 15 mg tablet 15 mg PO BID 07/15/22 05/01/25 History escitalopram oxalate 20 mg tablet 20 mg PO QAM 90 days #90 tabs 03/28/24 05/01/25 Rx (Lexapro) ondansetron 8 mg disintegrating 8 mg PO Q8H PRN nausea and 09/04/24 05/01/25 Rx tablet vomiting #30 tabs hydroxyzine pamoate 25 mg capsule 50 mg PO HS 11/24/24 05/01/25 History duloxetine 20 mg capsule,delayed 20 mg PO QAM #30 caps 12/05/24 05/01/25 Rx release (Cymbalta) topiramate 100 mg tablet (Topamax) 100 mg PO HS #90 tabs 03/20/25 05/01/25 Rx erenumab-aooe 140 mg/mL 140 mg subcut MONTHLY #1 mL 04/10/25 05/01/25 Rx subcutaneous auto-injector (Aimovig Autoinjector) diazepam 5 mg tablet 5 mg PO DAILY PRN muscle spasm #30 04/12/25 05/01/25 Rx tabs oxycodone 5 mg tablet 10 mg (2 x 5 mg) PO Q8H PRN pain 04/12/25 05/01/25 Rx #60 tabs melatonin 3 mg tablet 3 mg PO HS sleep 04/30/25 05/01/25 History pantoprazole 40 mg tablet,delayed 40 mg PO DAILY 04/30/25 05/01/25 History release Patient History Medical History Drainage from gastrostomy tube site Pain around PEG tube site Anxiety Depression Abdominal pain Bipolar I disorder, single manic episode GERD (gastroesophageal reflux disease) Hypertriglyceridemia Chiari malformation s/p decompression (~2014) No issues since per 05/12/[address] "There has been prior posterior suboccipital decompression. There is persistent caudal positioning of the cerebellar tonsils consistent with Chiari I malformation. 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 with MV on 12/2022 ECHO Hx of Lyme disease 2014 - antibiotic completed Hx of ectopic Anxiety and depression Morbid obesity Pre-diabetes s/p gastric sleeve procedure - no longer an issue GERD (gastroesophageal reflux disease) controlled, stable per pt Post traumatic stress disorder Deep vein thrombosis Around 2006 (LUE- unknown etiology) Headache h/o post spinal tap PAUL and generalized weakness in 2018 per 09/2020 [facility] neuro note Surgical History Hx laparoscopic cholecystectomy Status post sleeve gastrectomy 12/22/23 @ [facility] Myriam Villanueva Hx of hysterectomy History of carpal tunnel release Right History of MRI Right elbow MRI (02/13/22): MAC at [facility]. No issues noted per post-op anesthesia progress note. History of surgery Chiari Malformation repair (~2014; [facility]) Hx of foot surgery R/L repair of plantar fasciitis and removal of heel spurs History of laparoscopy History of tooth extraction Family History Grandmother (Paternal) Family history of diabetes mellitus Family/Other Chiari malformation Venous thrombosis Grandmother Stroke Mother Hypothyroidism Father Mitral valve prolapse Grandmother (Maternal) Breast cancer Denies family history of Ovarian cancer Colorectal cancer Social History Smoking Status: Never smoker Second Hand Exposure: No; Do You Dip or Chew Tobacco: No; Hx Alcohol Use: No Hx Substance Use: Yes Last Used Substance Other:: prescribed Oxy once a day PRN Preferred Language: Comoran Communication Ability: Effective Supercharge Repair Supervisor Required: No Beliefs That Will Affect Care: None marital status: Current Living Situation: Family Current Living Situation Comment: lives with the and children current occupational status: employed 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 GI as noted above Respiratory no increased cough sputum production Cardiovascular orthostatic type symptoms. Neurological extensive including potential atypical [place]. See neurology consultations and notes in the chart. Review systems otherwise as per admitting H&P without change. Physical Exam Physical Exam: Patient examined at the bedside she does not appear acutely toxic or ill. Gives a good history. Abdominal examination is actually benign no guarding rebound tenderness hernias. 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
[2025-05-05] MEDS: CHOLESTYRAMINE LIGHT 4 GM PKT PO SCH (21:04)
[2025-05-05 22:11] VITALS: O2SAT 97
[2025-05-06 07:38] VITALS: RESP 16; TEMP 98.6
--- NOTE | 2025-05-06 09:53 | Gastroenterology Progress Note ---
Date of Service May 06, 2025 Assessment & Plan Admission and Anticipated Discharge Date Admission Date: May 02, 2025 Subjective Nausea vomiting diarrhea Symptoms are settled stable for discharge today. Continue cholestyramine for bile salt diarrhea. Consider antidumping diet for rapid gastric emptying noted on gastric emptying study. Follow-up with [facility] Results & Data Results & Data Vital Signs (Past 12 Hours) Vital Signs Temp Pulse Resp BP Pulse Ox O2 Del Method 05/06/25 07:36 37.0 C 74 16 92/60 L 97 Room Air 05/05/25 22:09 36.6 C 69 14 97 Room Air PG Care Time/CCT Total # of Minutes Spent Total Time Spent with Patient: Total time spent is greater than 50% in coordination of care (as documented) at patient's floor/unit and/or counseling patient: Coding Level of Care Code None
--- NOTE | 2025-05-06 10:02 | Discharge Summary ---
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 initial evaluation with cervical spine CT, CXR, head CT no acute findings; EKG NSR, low voltage QRS at 77 bpm. EKG NSR, Trop < 2.3. no transaminitis, kidney function within normal limits. TSH within normal limits. Very decreased oral intake over the past few days, suspect that this is the cause of syncope and presyncope. No additional symptoms of chest pain or neuro deficits. EKG NSR, Trop < 2.3. no transaminitis, kidney function within normal limits. TSH within normal limits. Nausea improved with scheduled reglan before meals and prn zofran. For hypotension - orthostaic vital signs negative. AM cortisol WNL. - reports lightheadedness from low BP - add midodrine TID. Improving symptomatically #Headache Hx of migraines, ? concussion component, hit her head with fall. Medications give brief relief (tried narcotics, migraine cocktail, IV mag, toradol, and prn nurtec) - overall improving each day - recommend rest and limit screen time for concussion. Head CT negative. #Diarrhea Ongoing and chronic, per patient. Did see PCP the day of arrival, labs were ordered, possibly related to SSRI or recent abx use. Lexapro is not new. No sick contacts or recent travel. CMP WNL; Lipase WNL . KUB showing mild stool retention. Stool studies negative. GI consulted - rapid gastric emptying on NM study. Check fecal elastase. Added cholestyramine. #Nutritional deficiencies reports her supplements were stopped after rehab and her GI surgeon was going to order labs to recheck. Vit D low - restated. PTH and iron studies WNL. B12 and folate high - supplements continued, but decreased. B1 pending #Back pain- Ongoing, no worsening symptoms at present; Diazepam prn (spasms), oxycodone prn (pain); #Psych- Buspirone, duloxetine, escitalopram, hydroxyzine, topiramate - continue #GERD- Pantoprazole - continue Dispo:discharge to home PCP and GI follow up Notes For Next Care Provider Medication Changes From Visit reglan before meals midodrine Questran Admission HPI Per Admitting Provider 44-year-old female PMHx gastric sleeve s/p G-tube (01/04), GBS, bipolar 1 disorder, anxiety, depression, GERD, GI malformation s/p decompression (2014), MVP, and prior DVT (2006) presenting for syncopal episode at home the night of arrival with vomiting x 3 days. Patient states that starting 3 days [employer] been having vomiting with any oral intake to include liquids or solids. She is not having any abdominal pain, but does have chronic diarrhea. She states that when she was in her living room sitting with her feet up the day of arrival, her had brought in her dinner to her and she tried to take 2 bites of the food and immediately threw this up, and then took 1 sip of liquid and threw this up as well. She states that she remembers she was on the ground. She was covered in a blanket so she states her took her blanket from her and helped her. She did hit her head, complaining of 6 out of 10 pain above her right eyebrow. Has been feeling lightheaded for 3 days. Has a history of syncopal events approximately 1 year prior, which were following her gastric sleeve surgery (completed by Dr. Ceja at [facility]). Patient states that she has been having a lot of doctor appointments and PT appointments since being discharged in the hospital for GBS and states that she may has been overdoing it. Has not been able to tolerate oral intake for approximately 3 days. Denies being around anyone with similar symptoms. Denies chest pain, SOB, palpitations, abdominal pain, constipation, numbness/tingling, fever/chills, URI symptoms, LUTS. ED evaluation reveals CBC with very mild leukopenia at 4.48, stable H&H; CMP chloride 108, AST/ALT 10/6; troponin <2.3; TSH 1.037; hCG negative; UA without infection; toxicology positive for opioids and benzodiazepines (patient on these medications at home); cervical spine CT, CXR, head CT WNL; EKG NSR, low voltage QRS at 77 bpm.; Provided with 1.5 L NSS, promethazine 12.5 mg, ondansetron 4 mg IV, morphine 4 mg IV, ketorolac 10 mg IV, and acetaminophen 1 g IV in ED. Please see Dr. Reyes's attestation for adjustments/additions to treatment plan. Discharge Exam General: NAD, vitals as above, sitting up in bed, eager for discharge Pulm: breathing unlabored CV: well perfused extremities: moves all extremities Discharge Plan Discharge Items Patient Disposition: Home - Home Health Services Reason For Visit: SYNCOPE, VOMIT Discharge Diagnosis: syncope Condition on Discharge: Fair Activity: As commented below Activity Comment: work with therapy to get stronger Weightbearing: Full weightbearing Non-emergency contact: Primary Care Provider and Health Service Worker Call non-emergency contact if: you have any medication questions, your pain is worsening, your pain is unusual for you and your temperature is above 101 Follow-up/Referrals: Silvana Mcgarry CRNP [Primary Care Provider] - 05/15/25 2:00 pm (follow up within one week ) Alexis Brennan MD [Outside Practitioners] - ([facility] - follow up within one month ) Diet: Regular Addtl Attending Provider Instructions: Ms. Chong, You were hospitalized after an episode of syncope - likely caused by dehydrations. You were given IV fluids and started on a medication called midodrine to help raise your blood pressure. Continue taking this three times a day. You also had diarrhea - your stool studies were negative. You were seen by GI and started on Questran to help with this. You can also take imodium as needed. You have a persistent headache - your head CT did not have acute findings. I suspect that you have a concussion from falling and hitting your head. THis shoudl continue to get better. Limiting screen time and extra sleep will help. You were started on reglan before meals to help with your nausea. Continue to eat small frequent meals. There is a pancreastic elastase study pending - please follow up with your GI for these results. We also checked your vitamin levels. Your Vitamin D level was low. Your vitamin B1 level is bening. And B12 and folic acid levels were elevated so I decreased these supplements. Please follow up with your PCP within on week Please follow up with [facility] within one month. Activity: You can do normal everyday activities as your body allows. Take rest breaks if you feel tired. Do not overexert. Stop activity if you have pain, shortness of breath or feel dizzy. Follow-up appointments: Make an appointment with your primary care physician within one week of discharge. A copy of this summary will be sent to them. Every time you see your primary care physician, or any other doctor, bring your medication list, and a list of questions. CONTACT YOUR PRIMARY CARE PROVIDER if you experience any of the following: Shortness of breath or difficulty breathing Fevers or chills Feeling tired with normal activity or experiencing dizziness or fainting Difficulty following your treatment plan, or difficulty taking medications CALL 911 OR GO TO THE EMERGENCY DEPARTMENT if you experience any of the following: Severe abdominal pain or nausea/vomiting Severe chest pain, or chest pain that radiates (moves) to your jaw or arm Sudden, severe shortness of breath or difficulty breathing Thank you for allowing us to participate in your care. Pending Studies at Discharge: Yes (B1, pancreatic elastase ) Stand-Alone Forms: [facility], Smoking Cessation Medications and DC Order Prescriptions: New midodrine 5 mg tablet 5 mg PO TID@0800,1200,1700 30 Days Qty: 90 0RF loperamide 2 mg Capsule 2 mg PO Q3H PRN (Reason: loose stool) Qty: 10 0RF metoclopramide HCl 5 mg Tablet 5 mg PO TIDM 30 Days Qty: 90 0RF Prevalite 4 gram Powder In Packet 4 g PO BID@1000,2200 30 Days Qty: 60 0RF thiamine HCl (vitamin B1) 100 mg Tablet 200 mg PO QAM Qty: 30 0RF folic acid 400 mcg Tablet 400 mcg PO QAM Qty: 30 0RF cyanocobalamin (vitamin B-12) 500 mcg Tablet 500 mcg PO QAM Qty: 10 0RF cholecalciferol (vitamin D3) 25 mcg (1,000 unit) Capsule 50 mcg PO QAM Qty: 30 0RF Continued escitalopram oxalate [Lexapro] 20 mg tablet 20 mg PO QAM 90 Days Qty: 90 4RF topiramate [Topamax] 100 mg tablet 100 mg PO HS Qty: 90 3RF buspirone 15 mg tablet 15 mg PO BID diazepam 5 mg tablet 5 mg PO DAILY PRN (Reason: muscle spasm) Qty: 30 0RF oxycodone 5 mg tablet 10 mg PO Q8H PRN (Reason: pain) Qty: 60 0RF Aimovig Autoinjector 140 mg/mL auto-injector 140 mg subcut MONTHLY Qty: 1 5RF melatonin 3 mg tablet 3 mg PO HS ondansetron 8 mg Tablet,Disintegrating 8 mg PO Q8H PRN (Reason: nausea and vomiting) Qty: 30 0RF hydroxyzine pamoate 25 mg Capsule 50 mg PO HS duloxetine [Cymbalta] 20 mg Capsule,Delayed Release(Dr/Ec) 20 mg PO QAM Qty: 30 0RF pantoprazole 40 mg tablet,delayed release (DR/EC) 40 mg PO DAILY Discharge Orders: Discharge Order (Routine); Ordered 05/06/25 Ordered By: Eva Vyas/Other Patient Handouts: Gastric Bypass Nutrition Guidelines Admission Data Admit Date/Time: 05/02/25 14:36 Attending Provider: Sharee Davila Admit Provider: Jazmín Reyes Primary Care Provider: Silvana Mcgarry Other Providers: Jazmín Reyes; [facility]; Mil Cassidy Other Interventions: Discharge Summary Assessment (RN) Last Done: 05/06/25 10:31 Hospital Stay Data Consultations 05/01/25 00:33 ED Decision to Admit Stat 05/05/25 11:42 Consult Gastroenterology Routine Diagnostic Imagining Performed 04/30/25 19:33 CT cervical spine wo con Stat CT head/brain wo con Stat Pending Results Patient Have Any Pending Studies at Discharge: Yes (B1, pancreatic elastase ) Discharge Instructions Given to Patient (Per Discharging Provider) Ms. Chong, You were hospitalized after an episode of syncope - likely caused by dehydrations. You were given IV fluids and started on a medication called midodrine to help raise your blood pressure. Continue taking this three times a day. You also had diarrhea - your stool studies were negative. You were seen by GI and started on Questran to help with this. You can also take imodium as needed. You have a persistent headache - your head CT did not have acute findings. I suspect that you have a concussion from falling and hitting your head. THis shoudl continue to get better. Limiting screen time and extra sleep will help. You were started on reglan before meals to help with your nausea. Continue to eat small frequent meals. There is a pancreastic elastase study pending - please follow up with your GI for these results. We also checked your vitamin levels. Your Vitamin D level was low. Your vitamin B1 level is bening. And B12 and folic acid levels were elevated so I decreased these supplements. Please follow up with your PCP within on week Please follow up with [facility] within one month. Activity: You can do normal everyday activities as your body allows. Take rest breaks if you feel tired. Do not overexert. Stop activity if you have pain, shortness of breath or feel dizzy. Follow-up appointments: Make an appointment with your primary care physician within one week of discharge. A copy of this summary will be sent to them. Every time you see your primary care physician, or any other doctor, bring your medication list, and a list of questions. CONTACT YOUR PRIMARY CARE PROVIDER if you experience any of the following: Shortness of breath or difficulty breathing Fevers or chills Feeling tired with normal activity or experiencing dizziness or fainting Difficulty following your treatment plan, or difficulty taking medications CALL 911 OR GO TO THE EMERGENCY DEPARTMENT if you experience any of the following: Severe abdominal pain or nausea/vomiting Severe chest pain, or chest pain that radiates (moves) to your jaw or arm Sudden, severe shortness of breath or difficulty breathing Thank you for allowing us to participate in your care. Total Time Total Time Spent Total Time Spent (In Minutes): Time spent day of discharge 35 minutes including direct patient care, medication reconciliation, documentation, review of labs and images, and coordination of care. Coding Level of Care Code 28098 INP/OBS DISCH >30 MIN Diagnoses Syncope R55 Nausea & vomiting R11.2 Diarrhea R19.7
[2025-05-06 10:32] VITALS: BP 102/67; PULSE 84
[2025-05-09 14:42] LABS: 7-Aminoclonaz, Confirm NEGATIVE ng/mL (<25); Hydro-Alp Ur, GC/MS NEGATIVE ng/mL (<25); Hydrocodone Urine NEGATIVE ng/mL (<50); Hydromor Urine NEGATIVE ng/mL (<50); Hydroxyethylflurazepam, Conf NEGATIVE ng/mL (<50); Hydroxymidazolam Ur, GC/MS NEGATIVE ng/mL (<50); Lorazepam, Ur GC/MS NEGATIVE ng/mL (<50); Nordiazepam, Confirm 896 ng/mL (<50); Noroxycodone Urine 7600 ng/mL (<50); Oxazepam Ur, GC/MS 1994 ng/mL (<50); Oxymorph Urine 422 ng/mL (<50); Temazepam, Confirm 2467 ng/mL (<50)
[2025-05-11 03:32] LABS: Cryoglobulin, QL Negative (Negative)
== END 2025-05-06 11:07 | disposition home health service (06) ==
LOC: ED 19:22 → 3E 19:22 → SUATTDRO 05-01 01:11 → 3E 05-01 02:19 → SUATTDRO 05-02 14:36